=== PATIENT | female | born 1935 | race Hispanic/Latino ===

== ENCOUNTER 2018-08-13 18:09 | Emergency (ER) | payer MEDICARE ==
[~2018-08-13] VITALS: Ht 149.9 cm; Wt 68.0 kg
--- OUTSIDE RECORDS SUMMARY | 2018-08-13 18:23 | XMS REPORT | Continuity of Care Document ---
Author Author [facility] Organization Interface Address Unknown Phone Unavailable Problems Problem Status Onset Date Classification Date Reported Comments Source SWOLLEN FEET Active 06/22/2018 [facility] ACUTE PANCREATITIS, TYPE 2 DIABETES CHENCHO Active 06/22/2018 [facility] GI BLEED, PNEUMONIA Active 08/10/2017 [facility] WEAKNESS Active 08/10/2017 [facility] SYMPTOMATIC ANEMIA Active 07/30/2017 [facility] ABNORMAL LABS Active 07/30/2017 [facility] SEVERE AORTIC VALVA STENOSIS Active 05/13/2017 [facility] ACUTE CHF, ANEMIA, UTI Active 05/08/2017 [facility] CHEST PAIN Active 05/08/2017 [facility] FALL Active 01/04/2017 [facility] Discharge Diagnosis: Anemia, unspecified 12/11/2015 12/14/2015 [facility] DIZZINESS Active 12/11/2015 [facility] Discharge Diagnosis: Chest wall contusion 05/01/2015 05/04/2015 [facility] Discharge Diagnosis: Diabetes 05/01/2015 05/04/2015 [facility] Discharge Diagnosis: Acute back pain 05/01/2015 05/04/2015 [facility] Discharge Diagnosis: Neck pain 05/01/2015 05/04/2015 [facility] F/U Active 04/19/2015 [facility] AORTIC STENOSIS; DIZZINESS Active 02/16/2015 [facility] Anemia Resolved 01/02/2015 Problem 12/14/2015 [facility] SYMPOMATIC ANEMIA, INTERMITTENT TRIGEMIN Active 12/29/2014 [facility] ABNORMAL LAB Active 12/29/2014 [facility] CELLULITIS Active 06/29/2014 [facility] CELLULITUS Active 06/29/2014 [facility] LEG PAIN Active 05/02/2014 [facility] 786.2 Active 04/27/2014 [facility] MRSA<sup>1, 2</sup> Active 04/04/2014 Problem 05/13/2015 Problem added by Discern Expert. [facility] CELLULITIS TO LEGS Active 04/01/2014 [facility] RASH Active 04/01/2014 [facility] ALLERGIES/RASH ON LEGS Active 03/04/2014 [facility] Discharge Diagnosis: Foot contusion 01/18/2014 01/21/2014 [facility] Discharge Diagnosis: Urinary tract infection 01/18/2014 01/21/[address] [facility] [address] SENT Active 01/18/2014 [facility] HYPOXIA, UTI, PRINCE Active 09/22/2013 [facility] DECONDITIONED Active 09/22/2013 [facility] SPLIT [id number] Active 05/15/2013 [facility] ASTHMATIC BRONCHITIS, BRONCHITIS W/EXACE Active 04/28/2013 [facility] ASTHMATIC BRONCHITIS Active 04/28/2013 [facility] ATACKSIA Active 08/08/2012 [facility] LEFT BREAST FILMS Active 08/05/2012 [facility] FALL LESS THAN 8 FEET Active 07/09/2012 [facility] FATIGUE Active 06/14/2007 [facility] History of Parkinson's disease Active 08/19/1999 Problem 02/27/2018 [facility] Diabetes Resolved 08/19/1979 Problem 06/21/2017 [facility] Asthma Active Problem 01/08/2017 [facility] Chronic anemia Active Problem 01/08/2017 [facility] Diabetes mellitus type 2 Active Problem 01/08/2017 [facility] Neuropathy Active Problem 01/08/2017 [facility] Left leg pain Active Problem 01/08/2017 [facility] Parkinson disease Active Problem 01/08/2017 [facility] Psoriasis Active Problem 01/08/2017 [facility] Stomatitis Active Problem 01/08/2017 [facility] Alzheimer's disease Active Problem 02/27/2018 [facility] Anxiety Active Problem 02/27/2018 [facility] Atrial fibrillation Resolved Problem 02/27/2018 [facility] Benign hypertension Active Problem 02/27/2018 [facility] CAD - Coronary artery disease Active Problem 02/27/2018 [facility] Chronic kidney disease , stage III (moderate)(<span ID="[id number]">Confirmed</span>) Active Problem 02/27/2018 [facility] COPD Active Problem 02/27/2018 [facility] Depression Active Problem 02/27/2018 [facility] Diabetes mellitus due to underlying condition with diabetic chronic kidney disease Active Problem 08/12/2017 [facility] Hearing loss Active Problem 08/27/2017 [facility] S/P aortic valve repair Active Problem 02/27/2018 [facility] History of fall Active Problem 01/19/2018 [facility] Hyperlipidemia Active Problem 02/27/2018 [facility] Hypothyroidism Active Problem 02/27/2018 [facility] OA - Osteoarthritis Active Problem 02/27/2018 [facility] Obesity Active Problem 02/27/2018 [facility] Obstructive sleep apnea Active Problem 02/27/2018 [facility] Anemia due to blood loss Active Problem 02/27/2018 [facility] AVM (<span ID="[id number]">Confirmed</span>) Active Problem 02/27/2018 [facility] Diabetes mellitus with kidney disease Active Problem 02/27/2018 [facility] Gastroparesis Active Problem 02/27/2018 [facility] Cold sore Active Problem 08/27/2017 [facility] Unsteady gait Active Problem 02/27/2018 [facility] Weight loss Active Problem 02/10/2018 [facility] Anemia of chronic disease Active Problem 06/21/2017 [facility] Bypass Resolved Problem 06/21/2017 [facility] Fibromyalgia Active Problem 06/21/2017 [facility] History of - multiple allergies Active Problem 06/21/2017 [facility] Hypertension Resolved Problem 06/21/2017 [facility] Kidney stone Active Problem 06/21/2017 [facility] right Knee replacement Active Problem 06/21/2017 [facility] Allergic rhinitis Active Problem 02/10/2018 [facility] Back pain Active Problem 01/19/2018 [facility] Urinary frequency Active Problem 02/27/2018 [facility] Diabetes Resolved Problem 08/12/2017 [facility] Hypertension Resolved Problem 08/12/2017 [facility] Left ankle pain Active Problem 01/19/2018 [facility] Bilateral hearing loss Active Problem 02/27/2018 [facility] Gingivitis Active Problem 02/10/2018 [facility] Left hip pain Active Problem 01/19/2018 [facility] Poor dentition Active Problem 02/10/2018 [facility] Alzheimer's disease Active Problem 08/17/2017 [facility] Angiodysplasia Active Problem 08/17/2017 [facility] Anxiety Active Problem 08/17/2017 [facility] Benign hypertension Active Problem 08/17/2017 [facility] CAD - Coronary artery disease Active Problem 08/17/2017 [facility] Chronic kidney disease , stage III (moderate)(<span ID="[id number]">Confirmed</span>) Active Problem 08/17/2017 [facility] COPD Active Problem 08/17/2017 [facility] Depression Active Problem 08/17/2017 [facility] Diabetes Resolved Problem 08/17/2017 [facility] Diabetes mellitus due to underlying condition with diabetic chronic kidney disease Active Problem 08/17/2017 [facility] Fatigue Active Problem 08/17/2017 [facility] Hyperlipidemia Active Problem 08/17/2017 [facility] Hypertension Resolved Problem 08/17/2017 [facility] Hypothyroidism Active Problem 08/17/2017 [facility] OA - Osteoarthritis Active Problem 08/17/2017 [facility] Obesity Active Problem 08/17/2017 [facility] Obstructive sleep apnea Active Problem 08/17/2017 [facility] Chronic pain Active Problem 02/27/2018 [facility] Pedal edema Active Problem 02/27/2018 [facility] Physical deconditioning Active Problem 02/27/2018 [facility] Recurrent falls Active Problem 02/27/2018 [facility] Hip pain Active Problem 02/27/2018 [facility] Leg pain Active Problem 02/27/2018 [facility] Shoulder pain Active Problem 02/27/2018 [facility] Sciatica Active Problem 02/27/2018 [facility] Hypertension Active Problem 12/14/2015 [facility] MRSA<sup>1</sup> Active Problem 05/22/2014 1Problem added by Discern Expert. [facility] Diabetes mellitus Active Problem 10/08/2013 [facility] Psoriasis Active Problem 10/08/2013 [facility] Critical illness myopathy Active Problem 05/13/2015 [facility] Diabetes mellitus Active Problem 05/13/2015 [facility] Fibromyalgia Active Problem 05/13/2015 [facility] Neck pain Active Problem 05/13/2015 [facility] Psoriasis Active Problem 05/13/2015 [facility] Diabetes mellitus Active Problem 12/14/2015 [facility] Pneumonia Resolved Problem 12/14/2015 [facility] ASTHMA NOS Active [facility] BRONCHITIS NOS Active [facility] HYPOXEMIA Active [facility] CELLULITIS NOS Active [facility] CELLULITIS OF LEG Active [facility] ROUTINE MEDICAL EXAM Active [facility] 719.46 Active [facility] JOINT PAIN-L/LEG Active [facility] ANEMIA NOS Active [facility] HEART FAILURE, UNSPECIFIED Active [facility] ANEMIA, UNSPECIFIED Active [facility] URINARY TRACT INFECTION, SITE NOT SPECIF Active [facility] GASTROINTESTINAL HEMORRHAGE, UNSPECIFIED Active [facility] PNEUMONIA, UNSPECIFIED ORGANISM Active [facility] ACUTE PANCREATITIS WITHOUT NECROSIS OR I Active [facility] TYPE 2 DIABETES MELLITUS WITH HYPERGLYCE Active [facility] Medications Medication Details Route Status Patient Instructions Ordering Provider Order Date Source tizanidine 2 mg oral tablet 2 mg=1 tab, PO, Bedtime, PRN for muscle spasm, # 30 tab, 1 Refill(s), Pharmacy: [facility] [id number] Active 02/18/2018 [facility] lisinopril 20 mg oral tablet 20 mg=1 tab, PO, Daily, # 90 tab, 1 Refill(s), Pharmacy: [id number] Active 01/28/2018 [facility] hydrochlorothiazide 12.5 mg oral tablet 12.5 mg=1 tab, PO, Daily, PRN swelling, # 90 tab, 1 Refill(s), Pharmacy: [id number] Active 01/28/2018 [facility] Diclofenac Sodium 0.01 MG/MG Topical Gel [Voltaren] 4 gm=1 appl, TOP, BID, PRN Apply to affected area, # 100 gm, 2 Refill(s) Active 01/28/2018 [facility] AMIODarone 400 mg oral tablet 400 mg=1 tab, PO, Bedtime, # 90 tab, 1 Refill(s), Pharmacy: [id number] Active 01/28/2018 [facility] chlorhexidine gluconate 1.2 MG/ML Mouthwash 0.018 gm=15 ml, S&SPIT, BID, # 480 ml, 0 Refill(s), Pharmacy: [facility] [id number] Active 01/16/2018 [facility] tramadol hydrochloride 50 MG Oral Tablet 50 mg=1 tab, PO, BID, X 15 day, # 30 tab, 0 Refill(s) Active 12/02/2017 [facility] 3 ML insulin detemir 100 UNT/ML Prefilled Syringe [Levemir] 20 unit, SUB-Q, Bedtime, # 6 pen(s), 1 Refill(s), Pharmacy: [facility] [id number] Active 12/02/2017 [facility] 3 ML insulin detemir 100 UNT/ML Prefilled Syringe [Levemir] 20 unit, SUB-Q, Bedtime, X 90 day, # 6 pen(s), 1 Refill(s), Pharmacy: [id number] Inactive 12/02/2017 [facility] 3 ML Insulin Glargine 100 UNT/ML Pen Injector [Basaglar] 20 unit, SUB-Q, Bedtime, # 6 pen(s), 1 Refill(s), Pharmacy: [facility] Active 12/02/2017 [facility] 3 ML Insulin Glargine 100 UNT/ML Pen Injector [Basaglar] 20 unit, SUB-Q, Bedtime, X 90 day, # 6 pen(s), 1 Refill(s), Pharmacy: [facility] [id number] Inactive 12/02/2017 [facility] levofloxacin 500 mg oral tablet 500 mg=1 tab, PO, Daily, X 7 day, # 7 tab, 0 Refill(s), Pharmacy: [facility] [id number] Active 12/02/2017 [facility] 3 ML Insulin Glargine 100 UNT/ML Pen Injector [Basaglar] 20 unit, SUB-Q, Bedtime, # 6 pen(s), 1 Refill(s), Pharmacy: [id number] No Longer Active 11/22/2017 [facility] ferrous sulfate 325 mg oral enteric coated tablet 325 mg=1 tab, PO, Daily, # 90 tab, 1 Refill(s), Pharmacy: [id number] Active 11/21/2017 [facility] 24 HR venlafaxine 150 MG Extended Release Capsule [Effexor] 150 mg=1 cap, PO, Bedtime, # 90 cap, 1 Refill(s), Pharmacy: [facility] Active 11/21/2017 [facility] loratadine 10 mg oral tablet 10 mg=1 tab, PO, Daily, # 90 tab, 1 Refill(s), Pharmacy: [facility] Active 11/21/2017 [facility] benzonatate 100 mg oral capsule 100 mg=1 cap, PO, TID, do not crush or chew, X 10 day, # 30 cap, 1 Refill(s), Pharmacy: [facility] No Longer Active 11/21/2017 [facility] lisinopril 20 mg oral tablet 20 mg=1 tab, PO, Daily, # 90 tab, 1 Refill(s), Pharmacy: [facility] No Longer Active 11/21/2017 [facility] 3 ML insulin detemir 100 UNT/ML Prefilled Syringe [Levemir] 20 unit, SUB-Q, Daily, # 1 box, 5 Refill(s), Pharmacy: [facility] No Longer Active 11/21/2017 [facility] 3 ML insulin detemir 100 UNT/ML Prefilled Syringe [Levemir] 20 unit, SUB-Q, Daily, X 90 day, # 1 box, 5 Refill(s), Pharmacy: [facility] [id number] No Longer Active 11/20/2017 [facility] Ranitidine 150 MG Oral Tablet See Instructions, TAKE 1 TABLET BY MOUTH TWICE DAILY, # 180 tab, 1 Refill(s), Pharmacy: [facility] [id number] Active 10/25/2017 [facility] Hydroxyzine Hydrochloride 25 MG Oral Tablet 25 mg=1 tab, PO, BID, PRN Anxiety, X 30 day, # 60 tab, 1 Refill(s), Pharmacy: [id number] No Longer Active 10/04/2017 [facility] montelukast 10 mg oral tablet 10 mg=1 tab, PO, Daily, # 90 tab, 1 Refill(s), Pharmacy: [facility] Active 10/04/2017 [facility] ferrous sulfate 325 mg oral enteric coated tablet 325 mg=1 tab, PO, Daily, # 90 tab, 1 Refill(s), Pharmacy: [facility] No Longer Active 10/04/2017 [facility] atorvastatin 40 mg oral tablet 40 mg=1 tab, PO, Bedtime, # 90 tab, 1 Refill(s), Pharmacy: [facility] Active 10/04/2017 [facility] donepezil 10 mg oral tablet 10 mg=1 tab, PO, Bedtime, # 90 tab, 1 Refill(s), Pharmacy: [facility] Active 10/04/2017 [facility] 3 ML Insulin, Aspart, Human 100 UNT/ML Pen Injector [NovoLog] 7 unit, SUB-Q, Before Breakfast, # 1 box, 5 Refill(s), Pharmacy: [facility] Active 08/23/2017 [facility] 3 ML Insulin Glargine 100 UNT/ML Prefilled Syringe [Lantus] 20 unit, SUB-Q, Before Breakfast, # 1 box, 5 Refill(s), Pharmacy: [facility] Active 08/23/2017 [facility] valACYclovir 1 g oral tablet 2 gm=2 tab, PO, Q12H, 2 g every 12 hours for 1 day, X 1 day, # 4 tab, 0 Refill(s), Pharmacy: [facility] No Longer Active 08/22/2017 [facility] Hydralazine 5 mg, 0.25 mL, Route: IV, Drug form: INJ, ONCE, Dosing Weight 64.864, kg, Start date: 08/14/17 12:34:00 [employer], Stop date: 08/14/17 12:34:00 CSTNotes: (Same as: Apresoline) Push over 5 minutes Inactive 08/14/2017 [facility] aspirin 81 mg tablet, enteric coated 81 mg, 1 tab, Route: PO, Drug form: ECTAB, Daily, Dosing Weight 64.864, kg, Start date: 08/14/17 9:00:00 [employer], Duration: 30 day, Stop date: 09/12/17 9:00:00 CSTNotes: Do not crush or chew. (Same As: Ecotrin) Inactive 08/14/2017 [facility] metoprolol extended release 25 mg, 1 tab, Route: PO, Drug form: ERTAB, Daily, Start date: 08/14/17 4:12:00 [employer], Duration: 30 day, Stop date: 09/12/17 9:00:00 CSTNotes: (Same as: Toprol XL) Do Not Crush Inactive 08/14/2017 [facility] Dextromethorphan Hydrobromide 2 MG/ML / Guaifenesin 20 MG/ML Oral Solution 10 mL, Route: PO, Drug Form: SYRP, Dosing Weight 64.864, kg, Q4H, Start date: 08/13/17 20:00:00 [employer], Duration: 3 day, Stop date: 08/16/17 16:00:00 CSTNotes: (dextromethorphan-guaifenesin 10-100mg/5ml 10 ml oral SOLN ud) (Same as: Robitussin DM) No Longer Active 08/14/2017 [facility] Metoclopramide 5 MG Oral Tablet [Reglan] 5 mg, 1 tab, Route: PO, Drug form: TAB, TID-Before Meals, Dosing Weight 64.864, kg, Start date: 08/12/17 11:30:00 [employer], Duration: 30 day, Stop date: 09/11/17 7:30:00 CSTNotes: (Same as: Reglan) Take 30 min before meals No Longer Active 08/12/2017 [facility] Miralax 17 gm, 1 pkt, Route: PO, Drug form: PWDR, Daily, Dosing Weight 64.864, kg, Start date: 08/12/17 10:39:00 [employer], Duration: 30 day, Stop date: 09/11/17 9:00:00 CSTNotes: Dissolve in 8 oz of water or juice. (Same as: Miralax) No Longer Active 08/12/2017 [facility] Sodium Chloride 0.9% IV 1,000 mL 1,000 mL, Rate: 25 ml/hr, Infuse over: 40 hr, Route: IV, Dosing Weight 64.864 kg, Total Volume: 1,000, Start date: 08/12/17 10:12:00 [employer], Duration: 30 day, Stop date: 09/11/17 10:11:00 [employer], 1.68, m2 No Longer Active 08/12/2017 [facility] cefTRIAXone + sterile water 10 mL 1 gm, Route: IVP, [id number], Dosing Weight 63.636, kg, Priority: Routine, Start date: 08/11/17 18:00:00 [employer], Duration: 5 day, Stop date: 08/15/17 18:00:00 [employer], ABX Indication: PneumoniaNotes: (Same As: Rocephin). Use with 100 mL NS and infuse over 30 min MEDICATION WASTE Product Size: 1000 mg Product Wasted: ___ mg No Longer Active 08/12/2017 [facility] Alprazolam 0.25 MG Oral Tablet [Xanax] 0.25 mg, 1 tab, Route: PO, Drug form: TAB, TID, Dosing Weight 64.864, kg, PRN Anxiety, Start date: 08/11/17 12:09:00 [employer], Duration: 30 day, Stop date: 09/10/17 12:08:00 CSTNotes: With food or milk (Same as: Xanax) No Longer Active 08/11/2017 [facility] Zofran 4 mg, 2 mL, Route: IVP, Drug form: INJ, Q4H, Dosing Weight 64.864, kg, PRN Nausea, Start date: 08/11/17 12:09:00 [employer], Duration: 30 day, Stop date: 09/10/17 12:08:00 CSTNotes: (Same as: Zofran) MEDICATION WASTE Product Size: 4 mg Product Wasted: ___ mg No Longer Active 08/11/2017 [facility] 24 HR venlafaxine 150 MG Extended Release Capsule [Effexor] 150 mg=1 cap, PO, Bedtime, 0 Refill(s) Active 08/11/2017 [facility] levothyroxine 150 mcg (0.15 mg) oral tablet 150 microgram=1 tab, PO, Daily, # 30 tab, 0 Refill(s) Active 08/11/2017 [facility] pantoprazole 40 MG Enteric Coated Tablet [Protonix] 40 mg=1 tab, PO, Daily, # 30 tab, 0 Refill(s) Active 08/11/2017 [facility] atorvastatin 40 mg oral tablet 40 mg=1 tab, PO, Bedtime, # 30 tab, 0 Refill(s) Active 08/11/2017 [facility] clopidogrel 75 MG Oral Tablet [Plavix] 75 mg=1 tab, PO, Daily, # 30 tab, 0 Refill(s) No Longer Active 08/11/2017 [facility] aspirin 81 mg tablet, enteric coated 81 mg=1 tab, PO, Daily, # 90 tab, 3 Refill(s) Active 08/11/2017 [facility] lisinopril 20 mg oral tablet 20 mg=1 tab, PO, Daily, # 30 tab, 0 Refill(s) Active 08/11/2017 [facility] tizanidine 2 mg oral tablet 4 mg=2 tab, PO, BID, PRN Spasm, 0 Refill(s) Active 08/11/2017 [facility] ferrous sulfate 325 mg oral enteric coated tablet 325 mg=1 tab, PO, Daily, # 30 tab, 0 Refill(s) Active 08/11/2017 [facility] donepezil 10 mg oral tablet 10 mg=1 tab, PO, Bedtime, 0 Refill(s) Active 08/11/2017 [facility] AMIODarone 400 mg oral tablet 400 mg=1 tab, PO, Bedtime, 0 Refill(s) Active 08/11/2017 [facility] Doxycycline 100 mg, Route: IVPB, [id number], Dosing Weight 63.636, kg, Start date: 08/10/17 21:00:00 [employer], Duration: 30 day, Stop date: 09/09/17 9:00:00 CSTNotes: (Same as: Vibramycin) No Longer Active 08/11/2017 [facility] Sodium Chloride 0.9% IV 1,000 mL 1,000 mL, Rate: 50 ml/hr, Infuse over: 20 hr, Route: IV, Dosing Weight 63.636 kg, Total Volume: 1,000, Start date: 08/10/17 20:40:00 [employer], Duration: 30 day, Stop date: 09/09/17 20:39:00 [employer], 1.65, m2 No Longer Active 08/11/2017 [facility] Saline Flush 0.9% 10 ml, Route: IVP, Drug Form: INJ, Dosing Weight 63.636, kg, PRN, PRN Line Flush, Start date: 08/10/17 20:40:00 [employer], Duration: 30 day, Stop date: 09/09/17 20:39:00 CSTNotes: (Same as: BD Posiflush) No Longer Active 08/11/2017 [facility] Albuterol 0.83 MG/ML Inhalant Solution 2.49 mg, 3 mL, Route: NEB, Drug form: SOLN, PRN, Dosing Weight 63.636, kg, PRN Respiratory Protocol, Start date: 08/10/17 20:40:00 [employer], Duration: 30 day, Stop date: 09/09/17 20:39:00 CSTNotes: SEE RT DOCUMENTATION (Same as: Proventil) No Longer Active 08/11/2017 [facility] Ceftriaxone 1 gm, Route: IVP, [id number], Dosing Weight 63.636, kg, Priority: NOW, Start date: 08/10/17 20:40:00 [employer], Duration: 5 day, Stop date: 08/14/17 20:40:00 [employer] [employer], ABX Indication: PneumoniaNotes: (Same As: Roceph in). Use with 100 mL NS and infuse over 30 min MEDICATION WASTE Product Size: 1000 mg Product Wasted: ___ mg Inactive 08/11/2017 [facility] Acetaminophen 650 mg, 2 tab, Route: PO, Drug form: TAB, Q4H, Dosing Weight 63.636, kg, PRN Pain Score 1-3, For fever > 100.4. Not to exceed 4 grams in 24 hours, Start date: 08/10/17 20:40:00 ASTRONAUT [employer], Duration: 30 day, Stop date: 09/09/17 20:39:00 CSTNotes: Do not exceed 4 gm/day. (Same as: Tylenol) No Longer Active 08/11/2017 [facility] Dextromethorphan Hydrobromide 2 MG/ML / Guaifenesin 20 MG/ML Oral Solution 10 mL, Route: PO, Drug Form: SYRP, Dosing Weight 63.636, kg, Q4H, PRN Cough, Start date: 08/10/17 20:40:00 A[employer]ONAUT [employer], Duration: 30 day, Stop date: 09/09/17 20:39:00 CSTNotes: (dextromethorphan-guaifenesin 10-100mg/5ml 10 ml oral SOLN ud) (Same as: Robitussin DM) No Longer Active 08/11/2017 [facility] Rocephin + sterile water 10 mL 1 gm, Route: IVP, ONCE, Dosing Weight 63.636, kg, Priority: Routine, Start date: 08/10/17 18:00:00 ASTRONAUT [employer], Stop date: 08/10/17 18:00:00 ASTRONAUT [employer], ABX Indication: PneumoniaNotes: (Same As: Rocephin). Use with 100 mL NS and infuse over 30 min MEDICATION WASTE Product Size: 1000 mg Product Wasted: ___ mg Inactive 08/11/2017 [facility] cefTRIAXone + sterile water 10 mL 1 gm, Route: IVP, [id number], Dosing Weight 63.636, kg, Priority: NOW, Start date: 08/10/17 18:00:00 [employer]AUT [employer], Duration: 5 day, Stop date: 08/14/17 18:00:00 ASTRONAUT [employer], ABX Indication: PneumoniaNotes: (Same As: Rocephin). Use with 100 mL NS and infuse over 30 min MEDICATION WASTE Product Size: 1000 mg Product Wasted: ___ mg Inactive 08/11/2017 [facility] methylPREDNISolone 125 mg, 2 mL, Route: IV, Drug form: INJ, ONCE, Start date: 08/10/17 17:42:00 A[employer]ONAUT [employer], Stop date: 08/10/17 17:42:00 CSTNotes: (Same as:Solu-MEDROL, A-Methapred) Inactive 08/10/2017 [facility] methylPREDNISolone SODium SUCCinate 125 mg, Route: IVP, ONCE, Dosing Weight 63.636, kg, Priority: STAT, Start date: 08/10/17 16:43:00 A[employer]AUT [employer], Stop date: 08/10/17 16:43:00 ASTRONAUT [employer] Inactive 08/10/2017 [facility] Rocephin 1 gm, Route: IVPB, ONCE, Dosing Weight 63.636, kg, Priority: STAT, Start date: 08/10/17 16:33:00 ASTRONAUT [employer], Stop date: 08/10/17 16:33:00 ASTRONAUT [employer], ABX Indication: PneumoniaNotes: (Same As: Rocephin). Use with 100 mL NS and infuse over 30 min MEDICATION WASTE Product Size: 1000 mg Product Wasted: ___ mg Inactive 08/10/2017 [facility] Albuterol 0.83 MG/ML Inhalant Solution 2.49 mg, 3 mL, Route: NEB, Drug form: SOLN, ONCE, Dosing Weight 63.636, kg, Priority: STAT, Start date: 08/10/17 15:15:00 A[employer]ONAUT [employer], Stop date: 08/10/17 15:15:00 CSTNotes: SEE RT DOCUMENTATION (Same as: Proventil) Inactive 08/10/2017 [facility] Sodium Chloride 0.9% (titrate) 250 mL 250 mL, Rate: To prime line and flush remaining blood products., Dosing Weight 63.636, kg, Route: IV, Total Volume: 250, Start Date: 08/10/17 14:32:00 A[employer]AUT [employer], Duration: 30 day, Stop date: 09/09/17 14:31:00 ASTRONAUT [employer]IST, Replace Every: 24 hr Inactive 08/10/2017 [facility] Saline Flush 0.9% 10 mL, Route: IVP, Drug Form: INJ, Dosing Weight 72.926, kg, PRN, PRN Line Flush, Start date: 08/10/17 13:37:00 A[employer]ONAUT [employer], Duration: 30 day, Stop date: 09/09/17 13:36:00 CSTNotes: (Same as: BD Posiflush) No Longer Active 08/10/2017 [facility] ferrous sulfate 325 mg oral enteric coated tablet 325 mg=1 tab, PO, BID, # 60 tab, 0 Refill(s), Pharmacy: [facility] Active 08/01/2017 [facility] clopidogrel 75 mg, 1 tab, Route: PO, Drug form: TAB, Daily, Dosing Weight 72.926, kg, Start date: 08/01/17 9:00:00 A[employer]ONAUT [employer], Duration: 30 day, Stop date: 08/30/17 9:00:00 CSTNotes: (Same As: Plavix) Inactive 08/01/2017 [facility] Venofer 200 mg, 10 mL, Route: IVPB, Daily, Dosing Weight 72.926, kg, Start date: 08/01/17 9:00:00 ASTRONAUT [employer], Duration: 5 doses or times, Stop date: 08/05/17 9:00:00 CSTNotes: Each 5ml contains 100mg elemental iron. Mix with NS Non-Formulary (Same as:Venofer) Administer IV only. MEDICATION WASTE Product Size: 100 mg Product Wasted: ___ mg Inactive 08/01/2017 [facility] pantoprazole 40 mg, 1 tab, Route: PO, Drug form: ECTAB, Daily, Dosing Weight 72.926, kg, Start date: 08/01/17 9:00:00 A[employer]ONAUT [employer], Duration: 30 day, Stop date: 08/30/17 9:00:00 CSTNotes: Tablet should not be chewed or cr ushed. (Same as: Protonix) Inactive 08/01/2017 [facility] 24 HR Metoprolol Tartrate 25 MG Extended Release Tablet [Toprol] 50 mg, 1 tab, Route: PO, Drug form: ERTAB, Daily, Start date: 08/01/17 9:00:00 A[employer]ONAUT [employer], Duration: 30 day, Stop date: 08/30/17 9:00:00 CSTNotes: (Same as: Toprol XL) May split tab, but do not crush. Inactive 08/01/2017 [facility] Lisinopril 20 mg, 1 tab, Route: PO, Drug form: TAB, Daily, Dosing Weight 72.926, kg, Start date: 08/01/17 9:00:00 ASTRONAUT [employer], Duration: 30 day, Stop date: 08/30/17 9:00:00 CSTNotes: (Same as: Prinivil, Zestril) Inactive 08/01/2017 [facility] Thyroxine 150 microgram, 1 tab, Route: PO, Drug form: TAB, Daily, Dosing Weight 72.926, kg, Start date: 08/01/17 6:30:00 ASTRONAUT [employer], Duration: 30 day, Stop date: 08/30/17 6:30:00 CSTNotes: Take 1 hour before or 2 hours after meal; Enteral feeds may interefere with the absorption of this medication. (Same as: Levothroid) Inactive 08/01/2017 [facility] atorvastatin 40 mg, 1 tab, Route: PO, Drug form: TAB, Bedtime, Dosing Weight 72.926, kg, Start date: 07/31/17 21:00:00 ASTRONAUT [employer], Duration: 30 day, Stop date: 08/29/17 21:00:00 CSTNotes: (Same as: Lipitor) No Longer Active 08/01/2017 [facility] Amiodarone 200 mg, 1 tab, Route: PO, Drug form: TAB, Bedtime, Dosing Weight 72.926, kg, Start date: 07/31/17 21:00:00 A[employer]ONAUT [employer], Duration: 30 day, Stop date: 08/29/17 21:00:00 CSTNotes: (Same as: Cordarone) No Longer Active 08/01/2017 [facility] Effexor XR 150 mg, 1 cap, Route: PO, Drug form: ERCAP, Bedtime, Dosing Weight 72.926, kg, Start date: 07/31/17 21:00:00 A[employer]ONAUT [employer], Duration: 30 day, Stop date: 08/29/17 21:00:00 CSTNotes: Do not open, crush, or chew. (Same As: Effexor XR) No Longer Active 08/01/2017 [facility] 3 ML Insulin Glargine 100 UNT/ML Prefilled Syringe [Lantus] 20 unit, 0.2 mL, Route: SUB-Q, Drug form: SOLN, Bedtime, Dosing Weight 72.926, kg, Start date: 07/31/17 21:00:00 ASTRONAUT [employer], Duration: 30 day, Stop date: 08/29/17 21:00:00 CSTNotes: (Same as: Lantus) Do not hold insulin without contacting prescriber WASTE: F/P - Black; E - Genomed Trash Bin "single patient use only" No Longer Active 08/01/2017 [facility] donepezil 10 mg, 2 tab, Route: PO, Drug form: TAB, Bedtime, Dosing Weight 72.926, kg, Start date: 07/31/17 21:00:00 A[employer]ONAUT [employer], Duration: 30 day, Stop date: 08/29/17 21:00:00 CSTNotes: (Same as: Aricept) No Longer Active 08/01/2017 [facility] aspirin 81 mg tablet, enteric coated 81 mg, 1 tab, Route: PO, Drug form: ECTAB, Daily, Dosing Weight 72.926, kg, Start date: 07/31/17 17:30:00 ASTRONAUT [employer], Duration: 30 day, Stop date: 08/30/17 9:00:00 CSTNotes: Do not crush or chew. (Same As: Ecotrin) No Longer Active 07/31/2017 [facility] Alprazolam 0.5 MG Oral Tablet 0.5 mg, 1 tab, Route: PO, Drug form: TAB, BID, Dosing Weight 72.926, kg, PRN as needed for anxiety, Start date: 07/31/17 16:58:00 A[employer]ONAUT [employer], Duration: 30 day, Stop date: 08/30/17 16:57:00 CSTNotes: With food or milk (Same as: Xanax) No Longer Active 07/31/2017 [facility] Insulin Lispro 10 unit, 0.1 mL, Route: SUB-Q, Drug form: SOLN, TID-Before Meals, Dosing Weight 72.926, kg, PRN Blood Glucose Results, Start date: 07/31/17 13:20:00 ASTRONAUT [employer], Duration: 30 day, Stop date: 08/30/17 13:19:0 0 CSTNotes: Roll in palms of hands gently; Do not shake `vigorously. (Same as: Humalog ) "Single Patient Use Only " WASTE: F/P - Black; E - Genomed Trash Bin Stable for 28 days at room temperature. Expires in days from Date No Longer Active 07/31/2017 [facility] Dextrose 50% Syringe 12.5 gm, 25 mL, Route: IVP, Drug Form: INJ, Dosing Weight 72.926, kg, PRN, PRN Blood Glucose Results, Start date: 07/31/17 13:20:00 A[employer]ONAUT [employer], Duration: 30 day, Stop date: 08/30/17 13:19:00 ASTRONAUT [employer] No Longer Active 07/31/2017 [facility] Glucagon 1 mg, Route: IM, Drug form: PDR/INJ, PRN, Dosing Weight 72.926, kg, PRN Blood Glucose Results, Start date: 07/31/17 13:20:00 A[employer]ONAUT [employer], Duration: 30 day, Stop date: 08/30/17 13:19:00 ASTRONAUT [employer] No Longer Active 07/31/2017 [facility] magnesium citrate 58.2 MG/ML Oral Solution 300 ml, Route: PO, Drug Form: LIQ, Dosing Weight 72.926, kg, ONCE, Start date: 07/31/17 9:50:00 ASTRONAUT [employer], Stop date: 07/31/17 9:50:00 CSTNotes: (Same as: Citrate of Magnesia) Concentration: 1.745 gm / 30 mL Inactive 07/31/2017 [facility] tizanidine 2 mg, 0.5 tab, Route: PO, Drug form: TAB, BID, Dosing Weight 72.926, kg, PRN as needed for muscle spasm, Start date: 07/31/17 4:30:00 A[employer]ONAUT [employer], Duration: 30 day, Stop date: 08/30/17 4:29:00 CSTNotes: (Same As: Zanaflex) No Longer Active 07/31/2017 [facility] Alprazolam 0.5 MG Oral Tablet 0.5 mg=1 tab, PO, BID, PRN anxiety, stress, # 20 tab, 0 Refill(s) Active 07/31/2017 [facility] Ranitidine 50 mg, PO, BID, 0 Refill(s) Active 07/31/2017 [facility] Acetaminophen 325 mg, 1 tab, Route: PO, Drug form: TAB, Q4H, Dosing Weight 68.182, kg, PRN Pain Score 4-6, Start date: 07/31/17 0:09:00 A[employer]ONAUT [employer], Duration: 30 day, Stop date: 08/30/17 0:08:00 CSTNotes: Do not exceed 4 gm/day. (Same as: Tylenol) No Longer Active 07/31/2017 [facility] Ondansetron 4 mg, 2 mL, Route: IVP, Drug form: INJ, Q6H, Dosing Weight 68.182, kg, PRN Nausea & Vomiting, Start date: 07/31/17 0:09:00 A[employer]ONAUT [employer], Duration: 30 day, Stop date: 08/30/17 0:08:00 CSTNotes: (Same as: Bettina) MEDICATION WASTE Product Size: 4 mg Product Wasted: ___ mg No Longer Active 07/31/2017 [facility] OneTouch Verio Gold Test Strips 1 ea, MISC, TID-Before Meals, Use for blood glucose monitoring., # 300 strip, Insulin dependent, Does not use insulin pump, Last DM eval date 06/16/17, 3 Refill(s) [facility] metoprolol tartrate 25 mg oral tablet 25 mg=1 tab, PO, BID, # 180 tab, 0 Refill(s) Active 07/30/[facility] Hydrochlorothiazide 12.5 MG / Lisinopril 20 MG Oral Tablet 1 tab, PO, Daily, # 30 tab, 0 Refill(s) Active 07/30/2017 [facility] Isosorbide PO, 0 Refill(s) Active 07/30/[facility] tizanidine 2 mg oral tablet 2 mg=1 tab, PO, BID, PRN for muscle spasm, # 60 tab, 2 Refill(s), Pharmacy: [facility] [id number] Active 07/30/2017 [facility] pantoprazole 40 mg oral enteric coated tablet 40 mg=1 tab, PO, Daily, # 30 tab, 0 Refill(s) Active 06/18/2017 [facility] lisinopril 20 mg oral tablet 20 mg=1 tab, PO, Daily, # 30 tab, 4 Refill(s), Lisinopril 20 mg Active 06/18/2017 [facility] clopidogrel 75 mg oral tablet 75 mg=1 tab, PO, Daily, # 30 tab, 0 Refill(s) Active 06/18/2017 [facility] atorvastatin 40 mg oral tablet 40 mg=1 tab, PO, Bedtime, # 30 tab, 0 Refill(s) Active 06/18/2017 [facility] aspirin 81 mg tablet, enteric coated 81 mg=1 tab, PO, Daily, # 30 tab, 0 Refill(s) Active 06/18/2017 [facility] AMIODarone 200 mg oral tablet 200 mg=1 tab, PO, Bedtime, # 30 tab, 0 Refill(s) Active 06/18/2017 [facility] metoprolol 25 mg oral tablet, extended release 25 mg=1 tab, PO, Daily, # 30 tab, 0 Refill(s) Active 06/18/2017 [facility] metoprolol extended release 25 mg, 1 tab, Route: PO, Drug form: ERTAB, Daily, Start date: 06/16/17 10:00:00 CDT, Duration: 30 day, Stop date: 07/16/17 9:00:00 CSTNotes: (Same as: Toprol XL) Do Not Crush No Longer Active 06/16/2017 [facility] insulin lispro 4 unit, Route: SUB-Q, TID-Before Meals, Dosing Weight 68.409, kg, PRN Blood Glucose Results, Start date: 06/16/17 7:38:00 CDT, Duration: 30 day, Stop date: 07/16/17 7:37:00 A[employer]ONAUT [employer] Inactive 06/16/2017 [facility] Dextrose 50% Syringe 50 mL, Route: IVP, Dosing Weight 68.409, kg, PRN, PRN Blood Glucose Results, Start date: 06/16/17 7:38:00 CDT, Duration: 30 day, Stop date: 07/16/17 6:37:00 A[employer]ONAUT [employer] Inactive 06/16/2017 [facility] glucagon 1 mg, Route: IM, PRN, Dosing Weight 68.409, kg, PRN Blood Glucose Results, Start date: 06/16/17 7:38:00 CDT, Duration: 30 day, Stop date: 07/16/17 6:37:00 ASTRONAUT [employer] Inactive 06/16/2017 [facility] Effexor XR 150 mg, 1 cap, Route: PO, Drug form: ERCAP, Bedtime, Dosing Weight 68.409, kg, Start date: 06/15/17 21:00:00 CDT, Duration: 30 day, Stop date: 07/14/17 21:00:00 CSTNotes: Do not open, crush, or chew. (Same As: Effexor XR) No Longer Active 06/16/2017 [facility] Lantus Solostar Pen 100 units/mL subcutaneous solution 20 unit, 0.2 mL, Route: SUB-Q, Drug form: SOLN, Bedtime, Dosing Weight 68.409, kg, Start date: 06/15/17 21:00:00 CDT, Duration: 30 day, Stop date: 07/14/17 21:00:00 CSTNotes: Same as: Lantus) Do not hold insulin without contacting prescriber WASTE: F/P - Black; E - Municipal Trash Bin Inactive 06/16/2017 [facility] donepezil 10 mg, 2 tab, Route: PO, Drug form: TAB, Bedtime, Dosing Weight 68.409, kg, Start date: 06/15/17 21:00:00 CDT, Duration: 30 day, Stop date: 07/14/17 21:00:00 CSTNotes: (Same as: Aricept) No Longer Active 06/16/2017 [facility] atorvastatin 40 mg, 1 tab, Route: PO, Drug form: TAB, Bedtime, Dosing Weight 68.409, kg, Start date: 06/15/17 21:00:00 CDT, Duration: 30 day, Stop date: 07/14/17 21:00:00 CSTNotes: (Same as: Lipitor) No Longer Active 06/16/2017 [facility] AMIODarone 200 mg, 1 tab, Route: PO, Drug form: TAB, Bedtime, Dosing Weight 68.409, kg, Start date: 06/15/17 21:00:00 CDT, Duration: 30 day, Stop date: 07/14/17 21:00:00 CSTNotes: (Same as: Cordarone) No Longer Active 06/16/2017 [facility] insulin glargine 20 unit, 0.2 mL, Route: SUB-Q, Drug form: SOLN, Bedtime, Dosing Weight 68.409, kg, Start date: 06/15/17 21:00:00 CDT, Duration: 30 day, Stop date: 07/14/17 21:00:00 CSTNotes: Same as: Lantus) Do not hold insulin without contacting prescriber WASTE: F/P - Black; E - Municipal Trash Bin No Longer Active 06/16/2017 [facility] pneumococcal 13-valent vaccine 0.5 mL, Route: IM, Daily, Start date: 06/15/17 9:00:00 CDT, Duration: 1 doses or times, Stop date: 06/15/17 9:00:00 CDT Inactive 06/15/2017 [facility] docusate 100 mg, 1 cap, Route: PO, Drug form: CAP, BID, Dosing Weight 68.409, kg, Start date: 06/15/17 9:00:00 CDT, Duration: 30 day, Stop date: 07/14/17 17:00:00 CSTNotes: (Same as: Colace) (Do Not Crush) No Longer Active 06/15/2017 [facility] pneumococcal 23-valent vaccine 0.5 mL, Route: IM, Drug Form: INJ, Daily, Start date: 06/15/17 9:00:00 CDT, Duration: 1 doses or times, Stop date: 06/15/17 9:00:00 CDTNotes: (Same as: Pneumovax 23) Refrigerate Inactive 06/15/2017 [facility] ranitidine 150 mg oral tablet 150 mg, 1 tab, Route: PO, Drug form: TAB, BID, Dosing Weight 68.409, kg, Start date: 06/15/17 9:00:00 CDT, Duration: 30 day, Stop date: 07/14/17 17:00:00 CSTNotes: (Same as:Zantac) Non-Formulary Item Take before or with meals No Longer Active 06/15/2017 [facility] pantoprazole 40 mg, 1 tab, Route: PO, Drug form: ECTAB, Daily, Dosing Weight 68.409, kg, Start date: 06/15/17 9:00:00 CDT, Duration: 30 day, Stop date: 07/14/17 9:00:00 CSTNotes: Tablet should not be chewed or cr ushed. (Same as: Protonix) No Longer Active 06/15/2017 [facility] lisinopril 20 mg, 1 tab, Route: PO, Drug form: TAB, Daily, Dosing Weight 68.409, kg, Start date: 06/15/17 9:00:00 CDT, Duration: 30 day, Stop date: 07/14/17 9:00:00 CSTNotes: (Same as: Prinivil, Zestril) No Longer Active 06/15/2017 [facility] levothyroxine 150 microgram, 1 tab, Route: PO, Drug form: TAB, Daily, Dosing Weight 68.409, kg, Start date: 06/15/17 9:00:00 CDT, Duration: 30 day, Stop date: 07/14/17 9:00:00 CSTNotes: Take 1 hour before or 2 hours after meal; Enteral feeds may interefere with the absorption of this medication. (Same as: Levothroid) No Longer Active 06/15/2017 [facility] gabapentin 300 mg oral capsule 300 mg, 1 cap, Route: PO, Drug form: CAP, BID, Dosing Weight 68.409, kg, Start date: 06/15/17 9:00:00 CDT, Duration: 30 day, Stop date: 07/14/17 17:00:00 CSTNotes: (Same as: Neurontin) No Longer Active 06/15/2017 [facility] clopidogrel 75 mg, 1 tab, Route: PO, Drug form: TAB, Daily, Dosing Weight 68.409, kg, Start date: 06/15/17 9:00:00 CDT, Duration: 30 day, Stop date: 07/14/17 9:00:00 CSTNotes: (Same As: Plavix) No Longer Active 06/15/2017 [facility] aspirin 81 mg tablet, enteric coated 81 mg, 1 tab, Route: PO, Drug form: ECTAB, Daily, Dosing Weight 68.409, kg, Start date: 06/15/17 9:00:00 CDT, Duration: 30 day, Stop date: 07/14/17 9:00:00 CSTNotes: Do not crush or chew. (Same As: Ecotrin) No Longer Active 06/15/2017 [facility] heparin 5,000 unit, 1 mL, Route: SUB-Q, Drug form: INJ, Q8H, Dosing Weight 68.409, kg, Start date: 06/15/17 8:00:00 CDT, Duration: 30 day, Stop date: 07/15/17 0:00:00 CSTNotes: porcine heparin No Longer Active 06/15/2017 [facility] Tylenol 325 mg, 1 tab, Route: PO, Drug form: TAB, Q6H, Dosing Weight 68.409, kg, PRN Pain Score 1-3, Start date: 06/15/17 7:50:00 CDT, Duration: 30 day, Stop date: 07/15/17 7:49:00 CSTNotes: Do not exceed 4 gm/day. (Same as: Tylenol) No Longer Active 06/15/2017 [facility] NovoLOG FlexPen 7 unit, Route: SUB-Q, Before Breakfast, Dosing Weight 68.409, kg, Start date: 06/15/17 7:30:00 CDT, Duration: 30 day, Stop date: 07/14/17 7:30:00 [employer] Inactive 06/15/2017 [facility] insulin lispro 3 unit, 0.03 mL, Route: SUB-Q, Drug form: SOLN, TID-Before Meals, Dosing Weight 68.409, kg, Start date: 06/15/17 7:30:00 CDT, Duration: 30 day, Stop date: 07/14/17 16:30:00 CSTNotes: (Same as: Humalog ) Roll in palms of hands gently; Do not shake `vigorously. "Single Patient Use Only " (Restricted to patients requiring a dose > 60 units) WASTE: F/P - Black; E - Municipal Trash Bin Stable for 28 days at room temperature. Expires in days from Date No Longer Active 06/15/2017 [facility] insulin lispro 4 unit, 0.04 mL, Route: SUB-Q, Drug form: SOLN, TID-Before Meals, Dosing Weight 68.409, kg, PRN Blood Glucose Results, Start date: 06/15/17 2:13:00 CDT, Duration: 30 day, Stop date: 07/15/17 2:12:00 CSTNotes: (Same as: Humalog ) Roll in palms of hands gently; Do not shake `vigorously. "Single Patient Use Only " (Restricted to patients requiring a dose > 60 units) WASTE: F/P - Black; E - Municipal Trash Bin Stable for 28 days at room temperature. Expires in days from Date No Longer Active 06/15/2017 [facility] glucagon 1 mg, Route: IM, Drug form: PDR/INJ, PRN, Dosing Weight 68.409, kg, PRN Blood Glucose Results, Start date: 06/15/17 2:13:00 CDT, Duration: 30 day, Stop date: 07/15/17 1:12:00 [employer] No Longer Active 06/15/2017 [facility] Dextrose 50% Syringe 12.5 gm, 25 mL, Route: IVP, Drug Form: INJ, Dosing Weight 68.409, kg, PRN, PRN Blood Glucose Results, Start date: 06/15/17 2:13:00 CDT, Duration: 30 day, Stop date: 07/15/17 1:12:00 [employer] No Longer Active 06/15/2017 [facility] sodium chloride 0.9% INJ 250 mL 250 mL, Rate: equip maint eng for use with blood product administration, Dosing Weight 68.409, kg, Route: IV, Total Volume: 250, Start Date: 06/15/17 0:30:00 CDT, Duration: 30 day, Stop date: 07/15/17 0:29:00 [employer], Replace Every: 24 hr No Longer Active 06/15/2017 [facility] Saline Flush 0.9% 10 ml, Route: IVP, Drug Form: INJ, Dosing Weight 68.409, kg, PRN, PRN Line Flush, Start date: 06/15/17 0:06:00 CDT, Duration: 30 day, Stop date: 07/14/17 23:05:00 CSTNotes: (Same as: BD Posiflush) No Longer Active 06/15/2017 [facility] Saline Flush 0.9% 10 mL, Route: IVP, Drug Form: INJ, Dosing Weight 72.727, kg, PRN, PRN Line Flush, Start date: 06/14/17 11:23:00 CDT, Duration: 30 day, Stop date: 07/14/17 10:22:00 CSTNotes: (Same as: BD Posiflush) Inactive 06/14/2017 [facility] aspirin 81 mg tablet, enteric coated 81 mg=1 tab, PO, Daily, # 90 tab, 0 Refill(s) Active 05/25/2017 [facility] 24 HR venlafaxine 150 MG Extended Release Capsule [Effexor] 150 mg=1 cap, PO, Bedtime, # 90 cap, 1 Refill(s) Active 05/25/2017 [facility] lisinopril 20 mg oral tablet 20 mg=1 tab, PO, Daily, # 90 tab, 4 Refill(s), Lisinopril 20 mg Active 05/25/2017 [facility] levothyroxine 150 mcg (0.15 mg) oral tablet 150 microgram=1 tab, PO, Daily, # 90 tab, 1 Refill(s) Active 05/25/2017 [facility] gabapentin 300 MG Oral Capsule 300 mg=1 cap, PO, BID, # 90 cap, 0 Refill(s) Active 05/25/2017 [facility] donepezil 10 mg oral tablet 10 mg=1 tab, PO, Bedtime, # 90 tab, 0 Refill(s) Active 05/25/2017 [facility] atorvastatin 40 mg oral tablet 40 mg=1 tab, PO, Bedtime, # 90 tab, 0 Refill(s) Active 05/25/2017 [facility] AMIODarone 200 mg oral tablet 200 mg=1 tab, PO, Bedtime, # 90 tab, 0 Refill(s) Active 05/25/2017 [facility] pantoprazole 40 mg oral enteric coated tablet 40 mg=1 tab, PO, Daily, # 90 tab, 0 Refill(s) Active 05/25/2017 [facility] clopidogrel 75 mg oral tablet 75 mg=1 tab, PO, Daily, # 90 tab, 0 Refill(s) Active 05/25/2017 [facility] Lisinopril 20 mg, 1 tab, Route: PO, Drug form: TAB, Daily, Dosing Weight 68.182, kg, Start date: 05/25/17 9:00:00 CDT, Duration: 30 day, Stop date: 06/23/17 9:00:00 CSTNotes: (Same as: Afsaneh Valle) Inactive 05/25/2017 [facility] Lantus Solostar Pen 100 units/mL subcutaneous solution 20 unit, 0.2 mL, Route: SUB-Q, Drug form: SOLN, Bedtime, Dosing Weight 68.182, kg, Start date: 05/24/17 21:52:00 CDT, Duration: 30 day, Stop date: 06/23/17 21:00:00 CSTNotes: Same as: Lantus) Do not hold insulin without contacting prescriber WASTE: F/P - Black; E - Genomed Trash Bin No Longer Active 05/25/2017 [facility] Lisinopril 10 mg, 1 tab, Route: PO, Drug form: TAB, ONCE, Dosing Weight 68.182, kg, Start date: 05/24/17 10:05:00 CDT, Stop date: 05/24/17 10:05:00 CDTNotes: (Same as: Roque Vallestril) Inactive 05/24/2017 [facility] POLYETHYLENE GLYCOL 3350 17 gm, 1 pkt, Route: PO, Drug form: PWDR, Daily, Dosing Weight 68.182, kg, Start date: 05/24/17 9:00:00 CDT, Duration: 30 day, Stop date: 06/22/17 9:00:00 CDTNotes: Dissolve in 8 oz of water or juice. (Same as: Miralax) No Longer Active 05/24/2017 [facility] pantoprazole 40 mg, 1 tab, Route: PO, Drug form: ECTAB, Daily, Dosing Weight 68.182, kg, Start date: 05/24/17 9:00:00 CDT, Duration: 30 day, Stop date: 06/22/17 9:00:00 CDTNotes: Tablet should not be chewed or cr ushed. (Same as: Protonix) No Longer Active 05/24/2017 [facility] clopidogrel 75 mg, 1 tab, Route: PO, Drug form: TAB, Daily, Dosing Weight 68.182, kg, Start date: 05/24/17 9:00:00 CDT, Duration: 30 day, Stop date: 06/22/17 9:00:00 CDTNotes: (Same As: Plavix) No Longer Active 05/24/2017 [facility] aspirin 81 mg tablet, enteric coated 81 mg, 1 tab, Route: PO, Drug form: ECTAB, Daily, Dosing Weight 68.182, kg, Start date: 05/24/17 9:00:00 CDT, Duration: 30 day, Stop date: 06/22/17 9:00:00 CDTNotes: Do not crush or chew. (Same As: Ecotrin) No Longer Active 05/24/2017 [facility] Amlodipine 10 mg, 1 tab, Route: PO, Drug form: TAB, Daily, Dosing Weight 68.182, kg, Start date: 05/24/17 9:00:00 CDT, Duration: 30 day, Stop date: 06/22/17 9:00:00 CDTNotes: (Same as: Norvasc) Inactive 05/24/2017 [facility] Lisinopril 10 mg, 1 tab, Route: PO, Drug form: TAB, Daily, Dosing Weight 68.182, kg, Start date: 05/24/17 8:09:00 CDT, Duration: 30 day, Stop date: 06/22/17 9:00:00 CDTNotes: (Same as: Prinivil, Zestril) Inactive 05/24/2017 [facility] Calcium Carbonate 500 MG Chewable Tablet 1,000 mg, 2 tab, Route: PO, Drug form: CHEWTAB, PRN, Dosing Weight 68.182, kg, PRN Abnormal Lab Result, FOR ICU USE ONLY, Start date: 05/24/17 5:40:00 CDT, Duration: 30 day, Stop date: 06/23/17 4:39:00 CSTNotes: (Same As: Yusras) Calcium Carbonate 500 nn=770 mg elemental calcium Dose= mg calcium carbonate ( mg elemental calcium) No Longer Active 05/24/2017 [facility] sodium phosphate 30 mmol, 10 mL, Route: IVPB, PRN, Dosing Weight 68.182, kg, PRN Abnormal Lab Result, Start date: 05/24/17 5:40:00 CDT, Duration: 30 day, Stop date: 06/23/17 4:39:00 ASTRONAUT [employer]IST, FOR ICU USE ONLY No Longer Active 05/24/2017 [facility] Potassium Chloride 20 mEq, 1 tab, Route: PO, Drug form: ERTAB, PRN, Dosing Weight 68.182, kg, PRN Abnormal Lab Result, Start date: 05/24/17 5:40:00 CDT, Duration: 30 day, Stop date: 06/23/17 4:39:00 [employer] SPECIALIST, FOR ICU USE ONLYNotes: (Same as: K-Dur 20) "Do Not Crush" With food and full glass of water No Longer Active 05/24/2017 [facility] Magnesium Sulfate 2 gm, 50 mL, Route: IVPB, Drug form: INJ, PRN, Dosing Weight 68.182, kg, PRN Abnormal Lab Result, Start date: 05/24/17 5:40:00 CDT, Duration: 30 day, Stop date: 06/23/17 4:39:00 [employer] SPECIALIST, FOR ICU USE ONLYNotes: WASTE: F/P - Sink; E - Municipal Trash Bin No Longer Active 05/24/2017 [facility] Magnesium Oxide 800 mg, 2 tab, Route: PO, Drug form: TAB, PRN, Dosing Weight 68.182, kg, PRN Abnormal Lab Result, FOR ICU USE ONLY, Start date: 05/24/17 5:40:00 CDT, Duration: 30 day, Stop date: 06/23/17 4:39:00 [employer] Notes: (Same as: Mag-Ox 400) Magnesium oxide [id number] elemental magnesium Dose=____mg magnesium oxide (___mg elemental magnesium) No Longer Active 05/24/2017 [facility] Calcium Gluconate 1 gm, 10 mL, Route: IVPB, PRN, Dosing Weight 68.182, kg, PRN Abnormal Lab Result, Start date: 05/24/17 5:40:00 CDT, Duration: 30 day, Stop date: 06/23/17 4:39:00 [employer] SPECIALIST, FOR ICU USE ONLYNotes: WASTE: F/P - Sink; E - Municipal Trash Bin No Longer Active 05/24/2017 [facility] potassium phosphate-sodium phosphate 250 mg-280 mg-160 mg oral powder for reconstitution 2 pkt, Route: PO, Drug Form: PDR/REC, Dosing Weight 68.182, kg, PRN, PRN Abnormal Lab Result, FOR ICU USE ONLY, Start date: 05/24/17 5:40:00 CDT, Duration: 30 day, Stop date: 06/23/17 4:39:00 CSTNotes: (Same as: Phos-NaK) Each 1.5 gm pkt has 250mg phosphorous. Mix w/2.5oz water and stir. No Longer Active 05/24/2017 [facility] potassium phosphate 15 mmol, 5 mL, Route: IVPB, PRN, Dosing Weight 68.182, kg, PRN Abnormal Lab Result, Start date: 05/24/17 5:40:00 CDT, Duration: 30 day, Stop date: 06/23/17 4:39:00 [employer]IST, FOR ICU USE ONLYNotes: (Same as: K Phosphate.) 1 mMol phoshate has 1.47 mEq potassium Infuse over 4 hours No Longer Active 05/24/2017 [facility] Cefazolin 1 gm, Route: IVPB, Drug form: PDR/INJ, Q8H, Dosing Weight 68.182, kg, Start date: 05/24/17 0:00:00 CDT, Duration: 1 doses or times, Stop date: 05/24/17 0:00:00 CDT, ABX Indication: Surgical ProphylaxisN otes: (Same As: Ancef Kefzol) MEDICATION WASTE Product Size: 1000 mg Product Wasted:0 mg Inactive 05/24/2017 [facility] 3 ML Insulin Glargine 100 UNT/ML Prefilled Syringe [Lantus] 10 unit, 0.1 mL, Route: SUB-Q, Drug form: SOLN, ONCE, Dosing Weight 68.182, kg, Start date: 05/23/17 23:03:00 CDT, Stop date: 05/23/17 23:03:00 CDTNotes: Same as: Lantus) Do not hold insulin without contacting prescriber WASTE: F/P - Black; E - Municipal Trash Bin No Longer Active 05/24/2017 [facility] Docusate 100 mg, 1 cap, Route: PO, Drug form: CAP, Q12H, Dosing Weight 68.182, kg, Start date: 05/23/17 21:00:00 CDT, Duration: 30 day, Stop date: 06/22/17 9:00:00 CDTNotes: (Same as: Colace) (Do Not Crush) No Longer Active 05/24/2017 [facility] Ondansetron 4 mg, 2 mL, Route: IVP, Drug form: INJ, Q8H, Dosing Weight 68.182, kg, PRN Nausea & Vomiting, Start date: 05/23/17 19:02:00 CDT, Duration: 30 day, Stop date: 06/22/17 19:01:00 CDTNotes: (Same as: Zofran) MEDICATION WASTE Product Size: 4 mg Product Wasted: ___ mg No Longer Active 05/24/2017 [facility] Acetaminophen 1,000 mg, 100 mL, Route: IVPB, Drug form: INJ, ONCE, Dosing Weight 68.182, kg, PRN Pain Score 1-3, Start date: 05/23/17 19:02:00 CDTNotes: Infuse over 15 minutes Do not exceed 4gm/day of acetaminoph en MEDICATION WASTE Product Size: 1000 mg Product Wasted: ___ mg No Longer Active 05/24/2017 [facility] Nicardipine 40 mg, 200 mL, Rate: Titrate, Start Dose: 5 mg/hr, Titration: 2mg every 15 minutes PRN, Goal(s): maintain MAP 75-85 mmHg, Max Dose: 15mg/hr, Route: IV, Dosing Weight 68.182 kg, Total Volume: 200, Start date: 05/23/17 19:02:00 CDT, Duration: 30 day, St...Notes: Same as: Cardene Concentration: (0.2 mg /1 ml ) No Longer Active 05/24/2017 [facility] sodium chloride 0.9% 1000 ml INJ 750 mL 750 mL, Rate: 75 ml/hr, Infuse over: 10 hr, Route: IV, Dosing Weight 68.182 kg, Total Volume: 750, Start date: 05/23/17 19:02:00 CDT, Duration: 10 hr, Stop date: 05/24/17 5:01:00 CDT No Longer Active 05/24/2017 [facility] protamine (ANES) Route: IV, Drug form: INJ, ONCE, Stop date: 05/23/17 18:36:00 CDT Inactive 05/23/2017 [facility] Flumazenil 0.2 mg, 2 mL, Route: IVP, Drug form: INJ, PRN, Dosing Weight 68.182, kg, PRN Benzodiazepine Reversal, Initial dose, Start date: 05/23/17 18:11:00 CDT, Duration: 30 day, Stop date: 06/22/17 18:10:00 C DTNotes: (Same as: Romazicon) No Longer Active 05/23/2017 [facility] Fentanyl 50 microgram, 1 mL, Route: IVP, Drug form: INJ, Q5Min, Dosing Weight 68.182, kg, PRN Pain Score 7-10, Priority: Routine, Start date: 05/23/17 18:11:00 CDT, Duration: 2 doses or times, Stop date: Limited # of timesNotes: (Same as: Sublimaze) Preservative free. No Longer Active 05/23/2017 [facility] Naloxone 0.4 mg, 1 mL, Route: IVP, Drug form: INJ, Q2MIN, Dosing Weight 68.182, kg, PRN Narcotic Reversal, Start date: 05/23/17 18:11:00 CDT, Duration: 8 doses or times, Stop date: Limited # of timesNotes: Same as Narcan No Longer Active 05/23/2017 [facility] acetaminophen (ANES) Route: IV, Drug form: INJ, ONCE, Stop date: 05/23/17 18:01:00 CDT Inactive 05/23/2017 [facility] heparin (ANES) Route: IV, Drug form: INJ, ONCE, Stop date: 05/23/17 18:01:00 CDT Inactive 05/23/2017 [facility] propofol (ANES) Route: IV, Drug form: INJ, ONCE, Stop date: 05/23/17 17:41:00 CDT Inactive 05/23/2017 [facility] fentaNYL (ANES) Route: IV, Drug form: INJ, ONCE, Stop date: 05/23/17 17:41:00 CDT Inactive 05/23/2017 [facility] lidocaine (ANES) Route: IV, Drug form: INJ, ONCE, Stop date: 05/23/17 17:41:00 CDT Inactive 05/23/2017 [facility] ceFAZolin (ANES) Route: IV, Drug form: INJ, ONCE, Stop date: 05/23/17 17:36:00 CDT Inactive 05/23/2017 [facility] dexmedetomidine (ANES) (ANES) Route: IV, Drug form: INJ, Start date: 05/23/17 16:35:00 CDT, Stop date: 05/23/17 17:35:00 CDT Inactive 05/23/2017 [facility] sodium chloride 0.9% 250 ml INJ (ANES) Route: IV, Total Volume: 250, Start date: 05/23/17 16:29:00 CDT, Stop date: 05/23/17 17:29:00 CDT Inactive 05/23/2017 [facility] Amlodipine 5 mg, 1 tab, Route: PO, Drug form: TAB, ONCE, Dosing Weight 68.182, kg, Start date: 05/23/17 10:23:00 CDT, Stop date: 05/23/17 10:23:00 CDTNotes: (Same as: Norvasc) Inactive 05/23/2017 [facility] Prednisone 50 mg, 1 tab, Route: PO, Drug form: TAB, TID, Dosing Weight 68.182, kg, Start date: 05/23/17 3:00:00 CDT, Duration: 3 doses or times, Stop date: 05/23/17 13:00:00 CDTNotes: Take with food. Inactive 05/23/2017 [facility] sodium chloride 0.9% 1000 ml INJ 1,000 mL 1,000 mL, Rate: 75 ml/hr, Infuse over: 13.3 hr, Route: IV, Dosing Weight 68.182 kg, Total Volume: 1,000, start at midnight when pt is NPO, Start date: 05/23/17 0:01:00 CDT, Duration: 14 hr, Stop date: 05/23/17 14:00:00 CDT Inactive 05/23/2017 [facility] 24 HR Metoprolol Tartrate 50 MG Extended Release Tablet [Toprol] 50 mg, 1 tab, Route: PO, Drug form: ERTAB, Q12H, Start date: 05/22/17 21:00:00 CDT, Duration: 30 day, Stop date: 06/21/17 9:00:00 CDTNotes: (Same as: Toprol XL) May split tab, but do not crush. No Longer Active 05/23/2017 [facility] Benadryl 12.5 mg, 5 mL, Route: PO, Drug form: LIQ, Bedtime, Dosing Weight 68.182, kg, PRN Insomnia, Start date: 05/22/17 14:10:00 CDT, Stop date: 06/21/17 14:09:00 CDTNotes: (Same as: Benadryl) No Longer Active 05/22/2017 [facility] Benadryl 25 mg, 1 cap, Route: PO, Drug form: CAP, Bedtime, Dosing Weight 68.182, kg, PRN Insomnia, Start date: 05/22/17 10:01:00 CDT, Duration: 30 day, Stop date: 06/21/17 10:00:00 CDTNotes: (Same as: Benadryl) Inactive 05/22/2017 [facility] Amlodipine 5 mg, 1 tab, Route: PO, Drug form: TAB, Daily, Dosing Weight 68.182, kg, Start date: 05/22/17 9:52:00 CDT, Duration: 30 day, Stop date: 06/21/17 9:00:00 CDTNotes: (Same as: Norvasc) No Longer Active 05/22/2017 [facility] Furosemide 20 MG Oral Tablet [Lasix] 40 mg, Route: PO, Drug form: TAB, Daily, Dosing Weight 68.182, kg, Start date: 05/22/17 9:00:00 CDT, Duration: 30 day, Stop date: 06/20/17 9:00:00 CDT No Longer Active 05/22/2017 [facility] Lisinopril 40 mg, 2 tab, Route: PO, Drug form: TAB, Daily, Dosing Weight 68.182, kg, Start date: 05/22/17 9:00:00 CDT, Duration: 30 day, Stop date: 06/20/17 9:00:00 CDTNotes: (Same as: Prinivil, Zestril) No Longer Active 05/22/2017 [facility] Lasix 20 mg, 2 mL, Route: IVP, Drug form: INJ, ONCE, Dosing Weight 68.182, kg, Start date: 05/22/17 8:38:00 CDT, Stop date: 05/22/17 8:38:00 CDTNotes: (Same as: Lasix) Inactive 05/22/2017 [facility] 24 HR Metoprolol Tartrate 25 MG Extended Release Tablet [Toprol] 25 mg, 1 tab, Route: PO, Drug form: ERTAB, ONCE, Start date: 05/22/17 8:37:00 CDT, Stop date: 05/22/17 8:37:00 CDTNotes: (Same as: Toprol XL) Do Not Crush Inactive 05/22/2017 [facility] Lisinopril 10 mg, 1 tab, Route: PO, Drug form: TAB, ONCE, Dosing Weight 68.182, kg, Start date: 05/22/17 8:35:00 CDT, Stop date: 05/22/17 8:35:00 CDTNotes: (Same as: Prinivil, Zestril) Inactive 05/22/2017 [facility] Exparel 20 mL, Route: InFILtration(local), Drug Form: INJ, Dosing Weight 68.182, kg, 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 Bunionectomy: 7 mL into the tissues surrounding the osteotomy and 1 mL into the subcutaneous tissue of the surgical site (total dose=8 mL [106 mg]) Hemorrhoidectomy: 30 mL (20 mL vial diluted with 10 mL NS) divided and administered as 6 injections of 5 mL each (total dose=30 mL [266 mg]) No Longer Active 05/22/2017 [facility] Famotidine 20 mg, 1 tab, Route: PO, Drug form: TAB, ONCE, Dosing Weight 68.182, kg, Start date: 05/22/17 7:59:00 CDT, Stop date: 05/22/17 7:59:00 CDTNotes: (Same as: Pepcid) No Longer Active 05/22/2017 [facility] Diphenhydramine 50 mg, 1 cap, Route: PO, Drug form: CAP, ONCE, Dosing Weight 68.182, kg, Start date: 05/22/17 7:59:00 CDT, Stop date: 05/22/17 7:59:00 CDTNotes: (Same as: Benadryl) No Longer Active 05/22/2017 [facility] sodium chloride 0.9% INJ 250 mL 250 mL, Rate: equip maint eng for use with blood product administration, Dosing Weight 68.182, kg, Route: IV, Total Volume: 250, Start Date: 05/22/17 7:59:00 CDT, Duration: 30 day, Stop date: 06/21/17 7:58:00 CDT, Replace Every: 24 hr No Longer Active 05/22/2017 [facility] Furosemide 20 mg, 2 mL, Route: IVP, Drug form: INJ, ONCE, Dosing Weight 68.182, kg, Priority: Routine, Start date: 05/21/17 10:14:00 CDT, Stop date: 05/21/17 10:14:00 CDTNotes: (Same as: Lasix) Inactive 05/21/2017 [facility] sodium chloride 0.9% INJ 250 mL 250 mL, Rate: 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 Do not use hot water. Take immediately after dissolving in water. Inactive 05/21/2017 [facility] lisinopril 30 mg, 3 tab, Route: PO, Drug form: TAB, Daily, Dosing Weight 68.182, kg, Start date: 05/21/17 9:00:00 CDT, Duration: 30 day, Stop date: 06/19/17 9:00:00 CDTNotes: (Same as: Prinivil, Zestril) No Longer Active 05/21/2017 [facility] Lisinopril 10 mg, 1 tab, Route: PO, Drug form: TAB, ONCE, Dosing Weight 68.182, kg, Start date: 05/20/17 14:59:00 CDT, Stop date: 05/20/17 14:59:00 CDTNotes: (Same as: Prinivil, Zestril) Inactive 05/20/2017 [facility] Melatonin 3 MG Extended Release Tablet 9 mg, 3 tab, Route: PO, Drug Form: TAB, Dosing Weight 68.182, kg, Bedtime, Start date: 05/19/17 21:00:00 CDT, Stop date: 06/17/17 21:00:00 CDTNotes: (Same as: Melatonin) No Longer Active 05/20/2017 [facility] Vancomycin 750 mg, Route: IVPB, Drug form: PDR/INJ, [id number], Dosing Weight 68.182, kg, Start date: 05/19/17 13:00:00 CDT, Stop date: 05/26/17 1:00:00 CDT, ABX Indication: BacteremiaNotes: TIME CRITICAL MEDICATION (Same As: Vancocin) Infusion rate 2000 mg: infuse over 2.5 hours No Longer Active 05/19/2017 [facility] Toprol-XL 25 mg oral tablet, extended release 25 mg, 1 tab, Route: PO, Drug form: ERTAB, Daily, Start date: 05/19/17 11:00:00 CDT, Duration: 30 day, Stop date: 06/18/17 9:00:00 CDTNotes: (Same as: Toprol XL) Do Not Crush No Longer Active 05/19/2017 [facility] lisinopril 20 mg, 1 tab, Route: PO, Drug form: TAB, Daily, Dosing Weight 68.182, kg, Start date: 05/19/17 10:30:00 CDT, Duration: 30 day, Stop date: 06/18/17 9:00:00 CDTNotes: (Same as: Prinivil, Zestril) No Longer Active 05/19/2017 [facility] Tylenol 325 mg, 1 tab, Route: PO, Drug form: TAB, Q6H, Dosing Weight 68.182, kg, PRN For Temp > 100.4 F, Start date: 05/19/17 0:13:00 CDT, Duration: 30 day, Stop date: 06/18/17 0:12:00 CDTNotes: Do not exceed 4 gm/day. (Same as: Tylenol) No Longer Active 05/19/2017 [facility] Vancomycin 1.25 gm, Route: IV, ONCE, Dosing Weight 68.182, kg, Start date: 05/19/17 0:09:00 CDT, Stop date: 05/19/17 0:09:00 CDT, ABX Indication: Urinary Tract InfectionNotes: TIME CRITICAL MEDICATION (Same As: Va ncocin) Infusion rate 2000 mg: infuse over 2.5 hours MEDICATION WASTE Product Size: 1000 mg Product Wasted: ___ mg Inactive 05/19/2017 [facility] Venofer 200 mg, Route: IVPB, Drug form: INJ, Daily, Dosing Weight 68.182, kg, Start date: 05/17/17 9:00:00 CDT, Duration: 5 doses or times, Stop date: 05/21/17 9:00:00 CDT No Longer Active 05/17/2017 [facility] Melatonin 3 MG Extended Release Tablet 3 mg, 1 tab, Route: PO, Dosing Weight 68.182, kg, Bedtime, Start date: 05/16/17 21:00:00 CDT, Duration: 30 day, Stop date: 06/14/17 21:00:00 CDT Inactive 05/17/2017 [facility] Insulin Lispro 5 unit, 0.05 mL, Route: SUB-Q, Drug form: SOLN, TID-Before Meals, Dosing Weight 68.182, kg, PRN Blood Glucose Results, Start date: 05/16/17 19:56:00 CDT, Duration: 30 day, Stop date: 06/15/17 19:55:0 0 CDTNotes: (Same as: Humalog ) Roll in palms of hands gently; Do not shake `vigorously. "Single Patient Use Only " (Restricted to patients requiring a dose > 60 units) WASTE: F/P - Black; E - Municipal Trash Bin Stable for 28 days at room temperature. Expires in days from Date No Longer Active 05/17/2017 [facility] Famotidine 20 MG Oral Tablet [Pepcid] 20 mg, 1 tab, Route: PO, Drug form: TAB, ONCE, Dosing Weight 68.182, kg, Start date: 05/16/17 17:50:00 CDT, Stop date: 05/16/17 17:50:00 CDTNotes: (Same as: Pepcid) Inactive 05/16/2017 [facility] Ferrlecit + sodium chloride 0.9% INJ 100 mL 125 mg, 10 mL, Route: IV, Drug form: INJ, Daily, Start date: 05/16/17 10:00:00 CDT, Stop date: 05/23/17 10:00:00 CDTNotes: (sodium ferric gluconate complex (elemental iron) 62.5 mg/5 ml INJ) "Limited stability. Use immediately after admixture" (Same as: Ferrlecit) MEDICATION WASTE Product Size: 62.5 mg Product Wasted: ___ mg No Longer Active 05/16/2017 [facility] Alprazolam 0.25 MG Oral Tablet [Xanax] 0.25 mg, 1 tab, Route: PO, Drug form: TAB, Q6H, Dosing Weight 68.182, kg, PRN Anxiety, Start date: 05/16/17 10:00:00 CDT, Duration: 30 day, Stop date: 06/15/17 9:59:00 CDTNotes: With food or milk (Same as: Xanax) No Longer Active 05/16/2017 [facility] Melatonin 3 MG Extended Release Tablet 3 mg, 1 tab, Route: PO, Drug Form: TAB, Dosing Weight 68.182, kg, ONCE, Start date: 05/16/17 2:41:00 CDT, Stop date: 05/16/17 2:41:00 CDTNotes: (Same as: Melatonin) Inactive 05/16/2017 [facility] Insulin Lispro 5 unit, 0.05 mL, Route: SUB-Q, Drug form: SOLN, ONCE, Dosing Weight 68.182, kg, Start date: 05/15/17 19:41:00 CDT, Stop date: 05/15/17 19:41:00 CDTNotes: (Same as: Humalog ) Roll in palms of hands ge ntly; Do not shake `vigorously. "Single Patient Use Only " (Restricted to patients requiring a dose > 60 units) WASTE: F/P - Black; E - Municipal Trash Bin Stable for 28 days at room temperature. Expires in days from Date Inactive 05/16/2017 [facility] Humalog 5 unit, 0.05 mL, Route: SUB-Q, Drug form: SOLN, TID-Meals, Start date: 05/15/17 17:00:00 CDT, Duration: 30 day, Stop date: 06/14/17 12:00:00 CDTNotes: (Same as: Humalog ) Roll in palms of hands gently; Do not shake `vigorously. "Single Patient Use Only " (Restricted to patients requiring a dose > 60 units) WASTE: F/P - Black; E - Municipal Trash Bin Stable for 28 days at room temperature. Expires in days from Date No Longer Active 05/15/2017 [facility] Insulin regular 5 unit, 0.05 mL, Route: IV, Drug form: SOLN, ONCE, Dosing Weight 68.182, kg, Start date: 05/15/17 16:45:00 CDT, Stop date: 05/15/17 16:45:00 CDTNotes: (Same as: Humulin R) Roll in palms of hands gently; Do not shake vigorously. "single patient use only" (Restricted to patients requiring a dose > 60 units) WASTE: F/P - Black; E - Municipal Trash Bin Stable for 28 days at room temperature Expires in days from Date Inactive 05/15/2017 [facility] Insulin regular 10 unit, 0.1 mL, Route: SUB-Q, Drug form: SOLN, ONCE, Dosing Weight 68.182, kg, Start date: 05/15/17 16:37:00 CDT, Stop date: 05/15/17 16:37:00 CDTNotes: (Same as: Humulin R) Roll in palms of hands g ently; Do not shake vigorously. "single patient use only" (Restricted to patients requiring a dose > 60 units) WASTE: F/P - Black; E - Municipal Trash Bin Stable for 28 days at room temperature Expires in days from Date Inactive 05/15/2017 [facility] Dextrose 50% Syringe 25 mL, Route: IVP, Dosing Weight 68.182, kg, PRN, PRN Blood Glucose Results, Start date: 05/15/17 16:34:00 CDT, Duration: 30 day, Stop date: 06/14/17 16:33:00 CDT Inactive 05/15/2017 [facility] Sodium Chloride 0.9% IV 99 mL + Insulin regular 100 unit 99 mL, Rate: Start Insulin Drip Per ICU Protocol, Dosing Weight 68.182, kg, Route: IVPB, Total Volume: 99, Start Date: 05/15/17 16:34:00 CDT, Duration: 30 day, Stop date: 06/14/17 16:33:00 CDT, Replace Every: 24 hr Inactive 05/15/2017 [facility] Insulin regular 5 unit, Route: SUB-Q, TID-Before Meals, Dosing Weight 68.182, kg, Start date: 05/15/17 16:30:00 CDT, Duration: 30 day, Stop date: 06/14/17 11:30:00 CDT Inactive 05/15/2017 [facility] Insulin regular 5 unit, 0.05 mL, Route: SUB-Q, Drug form: SOLN, ONCE, Dosing Weight 68.182, kg, Start date: 05/15/17 15:01:00 CDT, Stop date: 05/15/17 15:01:00 CDTNotes: (Same as: Humulin R) Roll in palms of hands g ently; Do not shake vigorously. "single patient use only" (Restricted to patients requiring a dose > 60 units) WASTE: F/P - Black; E - Municipal Trash Bin Stable for 28 days at room temperature Expires in days from Date Inactive 05/15/2017 [facility] Insulin Lispro 10 unit, 0.1 mL, Route: SUB-Q, Drug form: SOLN, TID-Before Meals, Dosing Weight 68.182, kg, PRN Blood Glucose Results, Start date: 05/15/17 14:38:00 CDT, Duration: 30 day, Stop date: 06/14/17 14:37:0 0 CDTNotes: (Same as: Humalog ) Roll in palms of hands gently; Do not shake `vigorously. "Single Patient Use Only " (Restricted to patients requiring a dose > 60 units) WASTE: F/P - Black; E - Municipal Trash Bin Stable for 28 days at room temperature. Expires in days from Date No Longer Active 05/15/2017 [facility] Dextrose 50% Syringe 12.5 gm, 25 mL, Route: IVP, Drug Form: INJ, Dosing Weight 68.182, kg, PRN, PRN Blood Glucose Results, Start date: 05/15/17 14:38:00 CDT, Duration: 30 day, Stop date: 06/14/17 14:37:00 CDT No Longer Active 05/15/2017 [facility] Glucagon 1 mg, Route: IM, Drug form: PDR/INJ, PRN, Dosing Weight 68.182, kg, PRN Blood Glucose Results, Start date: 05/15/17 14:38:00 CDT, Duration: 30 day, Stop date: 06/14/17 14:37:00 CDT No Longer Active 05/15/2017 [facility] [facility] Insulin Lispro 8 unit, 0.08 mL, Route: SUB-Q, Drug form: SOLN, Sliding Scale, Dosing Weight 68.182, kg, PRN Blood Glucose Results, Start date: 05/15/17 12:34:00 CDT, Duration: 30 day, Stop date: 06/14/17 12:33:00 C DTNotes: (Same as: Humalog ) Roll in palms of hands gently; Do not shake `vigorously. "Single Patient Use Only " (Restricted to patients requiring a dose > 60 units) WASTE: F/P - Black; E - Municipal Trash Bin Stable for 28 days at room temperature. Expires in days from Date Inactive 05/15/2017 [facility] Tramadol 50 mg, 1 tab, Route: PO, Drug form: TAB, ONCE, Dosing Weight 68.182, kg, Start date: 05/15/17 12:33:00 CDT, Stop date: 05/15/17 12:33:00 CDTNotes: Not to exceed 400mg/day. (Same As: Ultram) Inactive 05/15/2017 [facility] sodium chloride 0.9% 500 ml INJ 500 mL 500 mL, Rate: 75 ml/hr, Infuse over: 6.7 hr, Route: IV, Dosing Weight 68.182 kg, Total Volume: 500, Start date: 05/15/17 12:28:00 CDT, Duration: 30 day, Stop date: 06/14/17 12:27:00 CDT No Longer Active 05/15/2017 [facility] Folic Acid 1 mg, 1 tab, Route: PO, Drug form: TAB, Daily, Dosing Weight 68.182, kg, Start date: 05/15/17 9:00:00 CDT, Duration: 7 day, Stop date: 05/21/17 9:00:00 CDTNotes: (Same as: Folvite) No Longer Active 05/15/2017 [facility] Vitamin B12 1,000 microgram, 1 tab, Route: PO, Drug form: TAB, Daily, Dosing Weight 68.182, kg, Start date: 05/15/17 9:00:00 CDT, Duration: 7 day, Stop date: 05/21/17 9:00:00 CDTNotes: (Same As: Vitamin B-12) No Longer Active 05/15/2017 [facility] Lisinopril 20 mg, 1 tab, Route: PO, Drug form: TAB, Daily, Dosing Weight 68.182, kg, Start date: 05/15/17 9:00:00 CDT, Duration: 30 day, Stop date: 06/13/17 9:00:00 CDTNotes: (Same as: Prinivil, Zestril) No Longer Active 05/15/2017 [facility] iodixanol 150 mL, Route: IVP, Drug Form: SOLN, Dosing Weight 68.182, kg, ONCALL, STAT, Start date: 05/15/17 8:35:00 CDT, Duration: 1 doses or times, Dose=2.2ml/kg, Max [id number] -- "To be infused by Radiology Staff ONLY"Notes: (Same as: Paulo). WASTE: F/P - Black; E - Municipal Trash Bin Inactive 05/15/2017 [facility] Diphenhydramine 50 mg, 2 cap, Route: PO, Drug form: CAP, ONCE, Dosing Weight 68.182, kg, Start date: 05/15/17 7:00:00 CDT, Stop date: 05/15/17 7:00:00 CDTNotes: (Same as: Benadryl) Inactive 05/15/2017 [facility] Famotidine 20 mg, 1 tab, Route: PO, Drug form: TAB, ONCE, Dosing Weight 68.182, kg, Start date: 05/15/17 7:00:00 CDT, Stop date: 05/15/17 7:00:00 CDTNotes: (Same as: Pepcid) Inactive 05/15/2017 [facility] Melatonin 3 MG Extended Release Tablet 3 mg, 1 tab, Route: PO, Drug Form: TAB, Dosing Weight 68.182, kg, ONCE, Start date: 05/15/17 1:40:00 CDT, Stop date: 05/15/17 1:40:00 CDTNotes: (Same as: Melatonin) Inactive 05/15/2017 [facility] atorvastatin 40 mg, 1 tab, Route: PO, Drug form: TAB, Bedtime, Dosing Weight 68.182, kg, Start date: 05/14/17 21:00:00 CDT, Duration: 30 day, Stop date: 06/12/17 21:00:00 CDTNotes: (Same as: Lipitor) No Longer Active 05/15/2017 [facility] 3 ML Insulin Glargine 100 UNT/ML Prefilled Syringe [Lantus] 20 unit, 0.2 mL, Route: SUB-Q, Drug form: SOLN, Bedtime, Dosing Weight 68.182, kg, Start date: 05/14/17 21:00:00 CDT, Duration: 30 day, Stop date: 06/12/17 21:00:00 CDTNotes: Same as: Lantus) Do not hold insulin without contacting prescriber WASTE: F/P - Black; E - Municipal Trash Bin No Longer Active 05/15/2017 [facility] Amiodarone 200 mg, 1 tab, Route: PO, Drug form: TAB, Bedtime, Dosing Weight 68.182, kg, Start date: 05/14/17 21:00:00 CDT, Duration: 30 day, Stop date: 06/12/17 21:00:00 CDTNotes: (Same as: Cordarone) No Longer Active 05/15/2017 [facility] Imdur 30 mg, 1 tab, Route: PO, Drug form: ERTAB, Bedtime, Dosing Weight 68.182, kg, Start date: 05/14/17 21:00:00 CDT, Duration: 30 day, Stop date: 06/12/17 21:00:00 CDTNotes: (Same as:Imdur) "Do Not Crush" Take on empty stomach/ full glass of water. Do not crush No Longer Active 05/15/2017 [facility] donepezil 10 mg, 2 tab, Route: PO, Drug form: TAB, Bedtime, Dosing Weight 68.182, kg, Start date: 05/14/17 21:00:00 CDT, Duration: 30 day, Stop date: 06/12/17 21:00:00 CDTNotes: (Same as: Aricept) No Longer Active 05/15/2017 [facility] Prednisone 50 mg, 1 tab, Route: PO, Drug form: TAB, TID, Dosing Weight 68.182, kg, Start date: 05/14/17 19:00:00 CDT, Duration: 3 doses or times, Stop date: 05/15/17 7:00:00 CDTNotes: Take with food. No Longer Active 05/15/2017 [facility] Effexor XR 150 mg, 1 cap, Route: PO, Drug form: ERCAP, QPM, Dosing Weight 68.182, kg, Start date: 05/14/17 17:00:00 CDT, Duration: 30 day, Stop date: 06/12/17 17:00:00 CDTNotes: Do not open, crush, or chew. (Same As: Effexor XR) No Longer Active 05/14/2017 [facility] famotidine 20 mg, 1 tab, Route: PO, Drug form: TAB, Daily, Start date: 05/14/17 15:00:00 CDT, Duration: 30 day, Stop date: 06/13/17 9:00:00 CDTNotes: (Same as: Pepcid) No Longer Active 05/14/2017 [facility] Morphine 2 mg, 0.5 mL, Route: IVP, Drug form: SOLN, ONCE, Dosing Weight 68.182, kg, Start date: 05/14/17 11:34:00 CDT, Stop date: 05/14/17 11:34:00 CDTNotes: (Same as:MORPhine Sulfate) Inactive 05/14/2017 [facility] methylPREDNISolone SODium SUCCinate 125 mg, 2 mL, Route: IVP, Drug form: INJ, ONCE, Dosing Weight 68.182, kg, Start date: 05/14/17 11:00:00 CDT, Stop date: 05/14/17 11:00:00 CDTNotes: (Same as:Solu-MEDROL, A- Methapred) Inactive 05/14/2017 [facility] Diphenhydramine 50 mg, 1 mL, Route: IVP, Drug form: INJ, ONCE, Dosing Weight 68.182, kg, Start date: 05/14/17 11:00:00 CDT, Stop date: 05/14/17 11:00:00 CDTNotes: (Same as: Benadryl) Inactive 05/14/2017 [facility] Famotidine 20 mg, 2 mL, Route: IVP, Drug form: INJ, ONCE, Dosing Weight 68.182, kg, Start date: 05/14/17 11:00:00 CDT, Stop date: 05/14/17 11:00:00 CDTNotes: (Same as: Pepcid) Can be dilute in 5-10cc NS IVP: S low IV push over at least 2 minutes. Inactive 05/14/2017 [facility] Tylenol 325 mg, 1 tab, Route: PO, Drug form: TAB, Q6H, Dosing Weight 68.182, kg, PRN Pain Score 1-3, Start date: 05/14/17 10:02:00 CDT, Duration: 30 day, Stop date: 06/13/17 10:01:00 CDTNotes: Do not exceed 4 gm/day. (Same as: Tylenol) No Longer Active 05/14/2017 [facility] 24 HR Metoprolol Tartrate 25 MG Extended Release Tablet [Toprol] 25 mg, 1 tab, Route: PO, Drug form: ERTAB, Daily, Start date: 05/14/17 9:00:00 CDT, Stop date: 06/12/17 9:00:00 CDTNotes: (Same as: Toprol XL) Do Not Crush No Longer Active 05/14/2017 [facility] Thyroxine 150 microgram, 1 tab, Route: PO, Drug form: TAB, Q630AM, Dosing Weight 68.182, kg, Start date: 05/14/17 9:00:00 CDT, Duration: 30 day, Stop date: 06/13/17 6:30:00 CDTNotes: Take 1 hour before or 2 hours after meal; Enteral feeds may interefere with the absorption of this medication. (Same as: Levothroid) No Longer Active 05/14/2017 [facility] gabapentin 300 MG Oral Capsule 300 mg, 1 cap, Route: PO, Drug form: CAP, BID, Dosing Weight 68.182, kg, Start date: 05/14/17 9:00:00 CDT, Duration: 30 day, Stop date: 06/12/17 21:00:00 CDTNotes: (Same as: Neurontin) No Longer Active 05/14/2017 [facility] Saline Flush 0.9% 10 ml, Route: IVP, Drug Form: INJ, Dosing Weight 68.182, kg, Q12H, Start date: 05/14/17 9:00:00 CDT, Duration: 30 day, Stop date: 06/12/17 21:00:00 CDTNotes: (Same as: BD Posiflush) No Longer Active 05/14/2017 [facility] aspirin 81 mg tablet, enteric coated 81 mg, 1 tab, Route: PO, Drug form: ECTAB, Daily, Dosing Weight 68.182, kg, Start date: 05/14/17 9:00:00 CDT, Duration: 30 day, Stop date: 06/12/17 9:00:00 CDTNotes: Do not crush or chew. (Same As: Ecotrin) No Longer Active 05/14/2017 [facility] Furosemide 40 mg, 4 mL, Route: IVP, Drug form: INJ, Daily, Dosing Weight 68.182, kg, Start date: 05/14/17 9:00:00 CDT, Duration: 30 day, Stop date: 06/12/17 9:00:00 CDTNotes: (Same as: Lasix) MEDICATION WASTE Product Size: 40 mg Product Wasted: ___ mg No Longer Active 05/14/2017 [facility] Rocephin 1 gm, Route: IVPB, Drug form: PDR/INJ, [id number], Dosing Weight 68.182, kg, Start date: 05/14/17 9:00:00 CDT, Duration: 2 day, Stop date: 05/15/17 9:00:00 CDT, ABX Indication: Genital Tract InfectionNotes: (Same As: Rocephin). Use with 100 mL NS and infuse over 30 min MEDICATION WASTE Product Size: 1000 mg Product Wasted: ___ mg No Longer Active 05/14/2017 [facility] Ranitidine 150 MG Oral Tablet 150 mg, 1 tab, Route: PO, Drug form: TAB, BID, Dosing Weight 68.182, kg, Start date: 05/14/17 9:00:00 CDT, Duration: 30 day, Stop date: 06/12/17 17:00:00 CDT Inactive 05/14/2017 [facility] montelukast 10 mg, Route: PO, Drug form: TAB, BID, Dosing Weight 68.182, kg, Start date: 05/14/17 9:00:00 CDT, Duration: 30 day, Stop date: 06/12/17 17:00:00 CDT Inactive 05/14/2017 [facility] pneumococcal capsular polysaccharide type 1 vaccine / pneumococcal capsular polysaccharide type 10A vaccine / pneumococcal capsular polysaccharide type 11A vaccine / pneumococcal capsular polysaccharide type 12F vaccine / pneumococcal capsular polysacchar 0.5 mL, Route: IM, Drug Form: INJ, Daily, Start date: 05/14/17 9:00:00 CDT, Duration: 1 doses or times, Stop date: 05/14/17 9:00:00 CDTNotes: (Same as: Pneumovax 23) Refrigerate Inactive 05/14/2017 [facility] Streptococcus pneumoniae serotype 1 capsular antigen diphtheria [id number] protein conjugate vaccine / Streptococcus pneumoniae serotype 14 capsular antigen diphtheria [id number] protein conjugate vaccine / Streptococcus pneumoniae serotype 18C capsular antigen d 0.5 mL, Route: IM, Daily, Start date: 05/14/17 9:00:00 CDT, Duration: 1 doses or times, Stop date: 05/14/17 9:00:00 CDT Inactive 05/14/2017 [facility] influenza virus vaccine, inactivated 0.5 mL, Route: IM, Drug Form: SUSP, Daily, Start date: 05/14/17 9:00:00 CDT, Duration: 1 doses or times, Stop date: 05/14/17 9:00:00 CDTNotes: (Same as: Fluzone Quadrivalent, Fluarix Quadrivalent) For 3 years of age and older (0.5 mL IM) Shake well before use Inactive 05/14/2017 [facility] Dextrose 50% Syringe 25 gm, 50 mL, Route: IVP, Drug Form: INJ, Dosing Weight 68.182, kg, PRN, PRN Blood Glucose Results, Start date: 05/14/17 8:02:00 CDT, Duration: 30 day, Stop date: 06/13/17 8:01:00 CDT No Longer Active 05/14/2017 [facility] Glucagon 1 mg, Route: IM, Drug form: PDR/INJ, PRN, Dosing Weight 68.182, kg, PRN Blood Glucose Results, Start date: 05/14/17 8:02:00 CDT, Duration: 30 day, Stop date: 06/13/17 8:01:00 CDT No Longer Active 05/14/2017 [facility] Insulin Lispro 2 unit, 0.02 mL, Route: SUB-Q, Drug form: SOLN, Sliding Scale, Dosing Weight 68.182, kg, PRN Blood Glucose Results, Start date: 05/14/17 8:02:00 CDT, Duration: 30 day, Stop date: 06/13/17 8:01:00 CDT Notes: (Same as: Humalog ) Roll in palms of hands gently; Do not shake `vigorously. "Single Patient Use Only " (Restricted to patients requiring a dose > 60 units) WASTE: F/P - Black; E - Municipal Trash Bin Stable for 28 days at room temperature. Expires in days from Date No Longer Active 05/14/2017 [facility] Nitroglycerin 0.4 MG Sublingual Tablet 0.4 mg, 1 tab, Route: SL, Drug form: TAB, Q5Min, Dosing Weight 68.182, kg, PRN Chest Pain, Start date: 05/14/17 8:00:00 CDT, Duration: 30 day, Stop date: 06/13/17 7:59:00 CDTNotes: (Same as:Nitroquick, Nitrostat) "Do Not Crush" Sublingual tablet No Longer Active 05/14/2017 [facility] heparin 5,000 unit, 1 mL, Route: SUB-Q, Drug form: INJ, Q8H, Dosing Weight 68.182, kg, Start date: 05/14/17 8:00:00 CDT, Duration: 30 day, Stop date: 06/13/17 0:00:00 CDTNotes: porcine heparin No Longer Active 05/14/2017 [facility] Saline Flush 0.9% 10 ml, Route: IVP, Drug Form: INJ, Dosing Weight 68.182, kg, PRN, PRN Line Flush, Start date: 05/14/17 7:44:00 CDT, Duration: 30 day, Stop date: 06/13/17 7:43:00 CDTNotes: (Same as: BD Posiflush) No Longer Active 05/14/2017 [facility] Saline Flush 0.9% 10 ml, Route: IVP, Drug Form: INJ, Dosing Weight 68.182, kg, PRN, PRN Line Flush, Start date: 05/14/17 5:55:00 CDT, Duration: 30 day, Stop date: 06/13/17 5:54:00 CDT Inactive 05/14/2017 [facility] Famotidine 20 mg, 1 tab, Route: PO, Drug form: TAB, Q12H, Dosing Weight 74.318, kg, Start date: 05/13/17 21:00:00 CDT, Duration: 30 day, Stop date: 06/12/17 9:00:00 CDTNotes: (Same as: Pepcid) No Longer Active 05/14/2017 [facility] Nitroglycerin 0.4 mg, Route: SL, Drug form: TAB, Q5Min, Dosing Weight 74.318, kg, PRN Chest Pain, Start date: 05/13/17 16:34:00 CDT, Duration: 3 doses or times, Stop date: Limited # of times Inactive 05/13/2017 [facility] sodium chloride 0.9% 1000 ml INJ 1,000 mL 1,000 mL, Rate: 75 ml/hr, Infuse over: 13.3 hr, Route: IV, Dosing Weight 74.318 kg, Total Volume: 1,000, Start date: 05/13/17 16:34:00 CDT, Duration: 10 hr, Stop date: 05/14/17 2:33:00 CDT No Longer Active 05/13/2017 [facility] pantoprazole 40 mg, 1 tab, Route: PO, Drug form: ECTAB, Before Breakfast, Dosing Weight 74.318, kg, Start date: 05/13/17 7:30:00 CDT, Duration: 30 day, Stop date: 06/11/17 7:30:00 CDTNotes: Tablet should not be c hewed or crushed. (Same as: Protonix) No Longer Active 05/13/2017 [facility] sodium chloride 0.9% 1000 ml INJ 1,000 mL 1,000 mL, Rate: 75 ml/hr, Infuse over: 13.3 hr, Route: IV, Dosing Weight 74.318 kg, Total Volume: 1,000, Start date: 05/12/17 17:10:00 CDT, Duration: 30 day, Stop date: 06/11/17 17:09:00 CDT No Longer Active 05/12/2017 [facility] Venofer 200 mg, 10 mL, Route: IVPB, Daily, Dosing Weight 74.318, kg, Start date: 05/12/17 9:00:00 CDT, Duration: 5 doses or times, Stop date: 05/16/17 9:00:00 CDTNotes: Each 5ml contains 100mg elemental iron. Mix with NS Non-Formulary (Same as:Venofer) Administer IV only. MEDICATION WASTE Product Size: 100 mg Product Wasted: ___ mg No Longer Active 05/12/2017 [facility] Hydroxyzine 25 mg, 1 cap, Route: PO, Drug form: CAP, Q6H, Dosing Weight 74.318, kg, PRN Itching, Start date: 05/11/17 20:43:00 CDT, Duration: 30 day, Stop date: 06/10/17 20:42:00 CDTNotes: (Same as: Vistaril) No Longer Active 05/12/2017 [facility] Pyridium 200 mg, 2 tab, Route: PO, Drug form: TAB, TID- After Meals, Dosing Weight 74.318, kg, Start date: 05/11/17 17:30:00 CDT, Duration: 2 day, Stop date: 05/13/17 12:30:00 CDTNotes: Give with meals. (Same as: Pyridium) No Longer Active 05/11/2017 [facility] Insulin Lispro 2 unit, 0.02 mL, Route: SUB-Q, Drug form: SOLN, TID-Before Meals, Dosing Weight 72.727, kg, PRN Blood Glucose Results, Start date: 05/10/17 16:28:00 CDT, Duration: 30 day, Stop date: 06/09/17 16:27:0 0 CDTNotes: Roll in palms of hands gently; Do not shake `vigorously. (Same as: Humalog ) "Single Patient Use Only " WASTE: F/P - Black; E - Municipal Trash Bin Stable for 28 days at room temperature. Expires in days from Date No Longer Active 05/10/2017 [facility] Glucagon 1 mg, Route: IM, Drug form: PDR/INJ, PRN, Dosing Weight 72.727, kg, PRN Blood Glucose Results, Start date: 05/10/17 16:28:00 CDT, Duration: 30 day, Stop date: 06/09/17 16:27:00 CDT No Longer Active 05/10/2017 [facility] Dextrose 50% Syringe 25 gm, 50 mL, Route: IVP, Drug Form: INJ, Dosing Weight 72.727, kg, PRN, PRN Blood Glucose Results, Start date: 05/10/17 16:28:00 CDT, Duration: 30 day, Stop date: 06/09/17 16:27:00 CDT No Longer Active 05/10/2017 [facility] sodium chloride 0.9% INJ 250 mL 250 mL, Rate: equip maint eng for use with blood product administration, Dosing Weight 72.727, kg, Route: IV, Total Volume: 250, Start Date: 05/10/17 9:47:00 CDT, Duration: 1 day, Stop date: 05/11/17 9:46:00 CDT, Replace Every: 24 hr No Longer Active 05/10/2017 [facility] 24 HR Metoprolol Tartrate 25 MG Extended Release Tablet [Toprol] 25 mg, 1 tab, Route: PO, Drug form: ERTAB, Daily, Start date: 05/10/17 9:00:00 CDT, Duration: 30 day, Stop date: 06/08/17 9:00:00 CDTNotes: (Same as: Toprol XL) Do Not Crush No Longer Active 05/10/2017 [facility] Thyroxine 150 microgram, 1 tab, Route: PO, Drug form: TAB, Q630AM, Dosing Weight 81.818, kg, Start date: 05/10/17 6:30:00 CDT, Duration: 30 day, Stop date: 06/08/17 6:30:00 CDTNotes: Take 1 hour before or 2 hours after meal; Enteral feeds may interefere with the absorption of this medication. (Same as: Levothroid) No Longer Active 05/10/2017 [facility] Effexor XR 150 mg, 1 cap, Route: PO, Drug form: ERCAP, Bedtime, Dosing Weight 81.818, kg, Start date: 05/09/17 21:00:00 CDT, Duration: 30 day, Stop date: 06/07/17 21:00:00 CDTNotes: Do not open, crush, or chew. (Same As: Effexor XR) No Longer Active 05/10/2017 [facility] montelukast 10 mg, 1 tab, Route: PO, Drug form: TAB, Bedtime, Dosing Weight 81.818, kg, Start date: 05/09/17 21:00:00 CDT, Duration: 30 day, Stop date: 06/07/17 21:00:00 CDTNotes: (Same as:Singulair) No Longer Active 05/10/2017 [facility] Imdur 30 mg, 1 tab, Route: PO, Drug form: ERTAB, Bedtime, Dosing Weight 81.818, kg, Start date: 05/09/17 21:00:00 CDT, Duration: 30 day, Stop date: 06/07/17 21:00:00 CDTNotes: (Same as:Imdur) "Do Not Crush" Take on empty stomach/ full glass of water. Do not crush No Longer Active 05/10/2017 [facility] 3 ML Insulin Glargine 100 UNT/ML Prefilled Syringe [Lantus] 20 unit, 0.2 mL, Route: SUB-Q, Drug form: SOLN, Bedtime, Dosing Weight 81.818, kg, Start date: 05/09/17 21:00:00 CDT, Duration: 30 day, Stop date: 06/07/17 21:00:00 CDTNotes: (Same as: Lantus) Do not hold insulin without contacting prescriber WASTE: F/P - Black; E - Municipal Trash Bin "single patient use only" No Longer Active 05/10/2017 [facility] donepezil 10 mg, 2 tab, Route: PO, Drug form: TAB, Bedtime, Dosing Weight 81.818, kg, Start date: 05/09/17 21:00:00 CDT, Duration: 30 day, Stop date: 06/07/17 21:00:00 CDTNotes: (Same as: Aricept) No Longer Active 05/10/2017 [facility] Lasix 40 mg, 4 mL, Route: IV, Drug form: INJ, Q12H, Dosing Weight 72.727, kg, Start date: 05/09/17 21:00:00 CDT, Duration: 3 doses or times, Stop date: 05/10/17 21:00:00 CDTNotes: (Same as: Lasix) MEDICATION WASTE Product Size: 40 mg Product Wasted: ___ mg No Longer Active 05/10/2017 [facility] atorvastatin 40 mg, 1 tab, Route: PO, Drug form: TAB, Bedtime, Dosing Weight 81.818, kg, Start date: 05/09/17 21:00:00 CDT, Duration: 30 day, Stop date: 06/07/17 21:00:00 CDTNotes: (Same as: Lipitor) No Longer Active 05/10/2017 [facility] Amiodarone 200 mg, 1 tab, Route: PO, Drug form: TAB, Bedtime, Dosing Weight 81.818, kg, Start date: 05/09/17 21:00:00 CDT, Duration: 30 day, Stop date: 06/07/17 21:00:00 CDTNotes: (Same as: Cordarone) No Longer Active 05/10/2017 [facility] Requip 1 mg, 1 tab, Route: PO, Drug form: TAB, BID, Dosing Weight 72.727, kg, PRN Leg Cramps, Priority: NOW, Start date: 09/21/17 17:24:00 CDT, Duration: 30 day, Stop date: 06/08/17 17:23:00 CDTNotes: (Same as: Requip) No Longer Active 05/09/2017 [facility] Acetaminophen 325 MG / Hydrocodone Bitartrate 5 MG Oral Tablet [[place] 5/325] 1 tab, Route: PO, Drug Form: TAB, Dosing Weight 72.727, kg, Q6H, PRN Pain Score 1-3, Start date: 05/09/17 17:24:00 CDT, Duration: 30 day, Stop date: 06/08/17 17:23:00 CDTNotes: (Same as: [place] 325/5) Do not exceed 4gm/day of acetaminophen. No Longer Active 05/09/2017 [facility] Alprazolam 0.5 MG Oral Tablet 0.5 mg, 1 tab, Route: PO, Drug form: TAB, BID, Dosing Weight 81.818, kg, PRN Anxiety, Start date: 05/09/17 16:26:00 CDT, Duration: 30 day, Stop date: 06/08/17 16:25:00 CDTNotes: With food or milk (Same as: Xanax) No Longer Active 05/09/2017 [facility] Ativan 0.5 mg, Route: PO, ONCE, Dosing Weight 84.091, kg, Start date: 05/09/17 15:46:00 CDT, Stop date: 05/09/17 15:46:00 CDT Inactive 05/09/2017 [facility] Acetaminophen 650 mg, PO, Q6H, PRN Pain 1-3/Temp > 100.4 F, 0 Refill(s) On Hold 05/09/2017 [facility] metoprolol 25 mg oral tablet, extended release 25 mg=1 tab, PO, Bedtime, 0 Refill(s) On Hold 05/09/2017 [facility] Diphenhydramine Hydrochloride 25 MG Oral Tablet [Diphenhist] 25 mg=1 tab, PO, BID, 0 Refill(s) On Hold 05/09/2017 [facility] 24 HR Isosorbide Mononitrate 30 MG Extended Release Tablet [Imdur] 30 mg=1 tab, PO, Bedtime, 0 Refill(s) On Hold 05/09/2017 [facility] 3 ML Insulin Glargine 100 UNT/ML Prefilled Syringe [Lantus] 20 unit, SUB-Q, Bedtime, 0 Refill(s) On Hold 05/09/2017 [facility] Hydrochlorothiazide 12.5 mg, PO, Every Other Day, 0 Refill(s) On Hold 05/09/2017 [facility] NovoLOG FlexPen 7 unit, SUB-Q, Before Breakfast, 0 Refill(s) On Hold 05/09/2017 [facility] gabapentin 300 MG Oral Capsule 300 mg=1 cap, PO, BID, 0 Refill(s) On Hold 05/09/2017 [facility] donepezil 10 mg oral tablet 10 mg=1 tab, PO, Bedtime, 0 Refill(s) On Hold 05/09/2017 [facility] atorvastatin 40 mg oral tablet 40 mg=1 tab, PO, Bedtime, 0 Refill(s) On Hold 05/09/2017 [facility] AMIODarone 200 mg oral tablet 200 mg=1 tab, PO, Bedtime, 0 Refill(s) On Hold 05/09/2017 [facility] Lasix 40 mg, 4 mL, Route: IV, Drug form: INJ, Q12H, Dosing Weight 72.727, kg, Start date: 05/09/17 9:00:00 CDT, Duration: 30 day, Stop date: 06/07/17 21:00:00 CDTNotes: (Same as: Lasix) MEDICATION WASTE Product Size: 40 mg Product Wasted: ___ mg Inactive 05/09/2017 [facility] Saline Flush 0.9% 10 ml, Route: IVP, Drug Form: INJ, Dosing Weight 72.727, kg, Q12H, Start date: 05/09/17 9:00:00 CDT, Duration: 30 day, Stop date: 06/07/17 21:00:00 CDTNotes: (Same as: BD Posiflush) No Longer Active 05/09/2017 [facility] Aspirin 81 MG Chewable Tablet 81 mg, 1 tab, Route: PO, Drug form: CHEWTAB, Q24H, Dosing Weight 72.727, kg, Start date: 05/09/17 7:00:00 CDT, Duration: 30 day, Stop date: 06/07/17 7:00:00 CDTNotes: Take with food. No Longer Active 05/09/2017 [facility] Tylenol 650 mg, 2 tab, Route: PO, Drug form: TAB, Q6H, Dosing Weight 72.727, kg, PRN Pain Score 1-3, Start date: 05/09/17 3:51:00 CDT, Duration: 30 day, Stop date: 06/08/17 3:50:00 CDTNotes: Do not exceed 4 gm/day. (Same as: Tylenol) No Longer Active 05/09/2017 [facility] Rocephin 1 gm, Route: IVPB, [id number], Dosing Weight 72.727, kg, Start date: 05/09/17 3:00:00 CDT, Duration: 10 day, Stop date: 05/18/17 3:00:00 CDT, ABX Indication: Urinary Tract InfectionNotes: (Same As: Rocephin). Use with 100 mL NS and infuse over 30 min MEDICATION WASTE Product Size: 1000 mg Product Wasted: ___ mg No Longer Active 05/09/2017 [facility] Saline Flush 0.9% 10 ml, Route: IVP, Drug Form: INJ, Dosing Weight 72.727, kg, PRN, PRN Line Flush, Start date: 05/09/17 2:29:00 CDT, Duration: 30 day, Stop date: 06/08/17 2:28:00 CDTNotes: (Same as: BD Posiflush) No Longer Active 05/09/2017 [facility] Morphine 2 mg, 1 mL, Route: IVP, Drug form: SOLN, Q15Min, Dosing Weight 72.727, kg, PRN Chest Pain, Start date: 05/09/17 2:29:00 CDT, Duration: 2 doses or times, Stop date: Limited # of times No Longer Active 05/09/2017 [facility] Ondansetron 4 mg, 1 tab, Route: PO, Drug form: TAB, Q8H, Dosing Weight 72.727, kg, PRN Nausea & Vomiting, Start date: 05/09/17 2:29:00 CDT, Duration: 30 day, Stop date: 06/08/17 2:28:00 CDTNotes: (Same as: Zofran) No Longer Active 05/09/2017 [facility] Nitroglycerin 0.4 mg, 1 tab, Route: SL, Drug form: TAB, Q5Min, Dosing Weight 72.727, kg, PRN Chest Pain, Start date: 05/09/17 2:29:00 CDT, Duration: 3 doses or times, Stop date: Limited # of timesNotes: (Same as:N itroquick, Nitrostat) "Do Not Crush" Sublingual tablet No Longer Active 05/09/2017 [facility] Ceftriaxone 1 gm, Route: IVPB, ONCE, Dosing Weight 72.727, kg, Priority: STAT, Start date: 05/09/17 0:58:00 CDT, Duration: 1 doses or times, Stop date: 05/09/17 0:58:00 CDT, ABX Indication: Urinary Tract Infection Inactive 05/09/2017 [facility] Lasix 40 mg, Route: IVP, Drug form: INJ, ONCE, Dosing Weight 72.727, kg, Priority: STAT, Start date: 05/09/17 0:02:00 CDT, Stop date: 05/09/17 0:02:00 CDT Inactive 05/09/2017 [facility] Ativan 0.5 mg, 1 tab, Route: PO, Drug form: TAB, ONCE, Dosing Weight 72.727, kg, Start date: 05/08/17 23:58:00 CDT, Stop date: 05/08/17 23:58:00 CDTNotes: (Same as: Ativan) No Longer Active 05/09/2017 [facility] Albuterol 0.833 MG/ML / Ipratropium [place] 0.167 MG/ML Inhalant Solution 3 mL, Route: NEB, Drug Form: SOLN, Dosing Weight 72.727, kg, ONCE, STAT, Start date: 05/08/17 23:33:00 CDT, Stop date: 05/08/17 23:33:00 CDT Inactive 05/09/2017 [facility] Ativan 0.5 mg, 0.5 tab, Route: PO, Drug form: TAB, ONCE, Dosing Weight 72.727, kg, Start date: 05/08/17 23:05:00 CDT, Stop date: 05/08/17 23:05:00 CDTNotes: (Same as: Ativan) Inactive 05/09/2017 [facility] Sodium Chloride 0.9% (Bolus) IV 1,000 mL, Infuse Over: 1 hr, Route: IV, ONCE, Priority: STAT, Dosing Weight 72.727 kg, Start date: 05/08/17 23:05:00 CDT, Duration: 1 doses or times, Stop date: 05/08/17 23:05:00 CDT Inactive 05/09/2017 [facility] Saline Flush 0.9% 10 mL, Route: IVP, Drug Form: INJ, Dosing Weight 72.727, kg, PRN, PRN Line Flush, Start date: 05/08/17 18:52:00 CDT, Duration: 30 day, Stop date: 06/07/17 18:51:00 CDTNotes: (Same as: BD Posiflush) No Longer Active 05/08/2017 [facility] Gentle Iron oral capsule 1 cap, PO, Daily, # 30 cap, 0 Refill(s), Pharmacy: [id number] Active 12/12/2015 [facility] Saline Flush 0.9% 10 mL, Route: IVP, Drug Form: INJ, Dosing Weight 73.182, kg, PRN, PRN Line Flush, Start date: 12/11/15 22:07:00 CDT, Duration: 30 day, Stop date: 01/10/16 22:06:00 CDTNotes: (Same as: BD Posiflush) No Longer Active 12/12/2015 [facility] Dexilant PO, Daily, 0 Refill(s) Active 05/10/2015 [facility] Morphine 2 mg, Route: IVP, Drug form: INJ, ONCE, Dosing Weight 78.636, kg, Priority: STAT, Start date: 05/01/15 15:26:00, Stop date: 05/01/15 15:26:00 Inactive 05/01/2015 [facility] Sodium Chloride 0.154 MEQ/ML Injectable Solution 1,000 mL, 1,000 ml/hr, Infuse Over: 1 hr, Route: IV, ONCE, Priority: STAT, Dosing Weight 78.636 kg, Start date: 05/01/15 15:24:00, Duration: 1 doses or times, Stop date: 05/01/15 15:24:00 Inactive 05/01/2015 [facility] Acetaminophen 325 MG / Hydrocodone Bitartrate 5 MG Oral Tablet [[place] 5/325] 1 tab, Route: PO, Drug Form: TAB, Dosing Weight 78.636, kg, ONCE, STAT, Start date: 05/01/15 12:47:00, Stop date: 05/01/15 12:47:00Notes: (Same as: [place] 325/5) Do not exceed 4gm/day of acetaminophen. Inactive 05/01/2015 [facility] 3 ML Insulin Glargine 100 UNT/ML Prefilled Syringe [Lantus] 20 unit, SUB-Q, Bedtime, # 1 pen(s), 3 Refill(s) Active 04/19/2015 [facility] Hydrochlorothiazide 25 mg, PO, Daily, 0 Refill(s) Active 04/19/2015 [facility] lisinopril 20 mg oral tablet 20 mg=1 tab, PO, Daily, # 30 tab, 0 Refill(s) Active 04/19/2015 [facility] NovoLog SUB-Q, TID-Before Meals, 15 u before a meal, 0 Refill(s)Special Instructions: 15 u before a meal Active 04/19/2015 [facility] Miralax 17 gm, 1 pkt, Route: PO, Drug form: PWDR, BID, Dosing Weight 83.636, kg, Start date: 01/07/15 9:00:00, Duration: 30 day, Stop date: 02/05/15 17:00:00Notes: Dissolve in 8 oz of water or juice. (Same as: Miralax) Inactive 01/07/2015 [facility] Gentamicin Sulfate (JAIL) 3 MG/ML Ophthalmic Solution 2 drp, OPTH, QID, instill to affected eye, X 5 day, # 5 ml, 0 Refill(s)Special Instructions: instill to affected eye Active 01/07/2015 [facility] Nitroglycerin 0.4 MG Sublingual Tablet 0.4 mg=1 tab, SL, Q5Min, PRN Chest Pain, # 100 tab, 0 Refill(s) Active 01/07/2015 [facility] 12 HR Dextromethorphan Hydrobromide 30 MG / Guaifenesin 600 MG Extended Release Tablet 1 tab, PO, BID, 0 Refill(s) Active 01/07/2015 [facility] clindamycin 300 mg oral capsule 300 mg=1 cap, PO, Q6H, X 10 day, # 40 cap, 0 Refill(s) Active 01/07/2015 [facility] Albuterol 0.833 MG/ML / Ipratropium [place] 0.167 MG/ML Inhalant Solution [DuoNeb] 3 mL, INHALATION, PRN, PRN Wheezing, # 90 mL, 0 Refill(s) Active 01/07/2015 [facility] NovoLOG Mix 70/30 FlexPen 0 Refill(s) Active 01/07/2015 [facility] Insulin, Aspart, Human 1 unit, SUB-Q, TID-Before Meals, PRN Blood Glucose Results, 0 Refill(s) Active 01/07/2015 [facility] Hydrochlorothiazide 25 MG Oral Tablet 12.5 mg=0.5 tab, PO, Daily, # 45 tab, 0 Refill(s) Active 01/07/2015 [facility] lisinopril 20 mg oral tablet 20 mg=1 tab, PO, Daily, # 90 tab, 0 Refill(s) Active 01/07/2015 [facility] metoprolol 10 mg/ml cmpd oral suspension 12.5 mg=0.5 tab, PO, Q12H, # 90 tab, 0 Refill(s) Active 01/07/2015 [facility] polyethylene glycol 3350 oral powder for reconstitution PO, BID, 0 Refill(s) Active 01/07/2015 [facility] pantoprazole 40 mg oral enteric coated tablet 40 mg=1 tab, PO, Before Dinner, 0 Refill(s) Active 01/07/2015 [facility] ferrous sulfate 325 mg oral enteric coated tablet 325 mg=1 tab, PO, TID, 0 Refill(s) Active 01/07/2015 [facility] Sodium Chloride 0.154 MEQ/ML Injectable Solution 500 mL, Rate: 25 ml/hr, Infuse over: 20 hr, Route: IV, Dosing Weight 83.636 kg, Total Volume: 500, Start date: 01/06/15 15:58:00, Duration: 1 day, Stop date: 01/07/15 15:57:00 Inactive 01/06/2015 [facility] Albuterol 0.833 MG/ML / Ipratropium [place] 0.167 MG/ML Inhalant Solution [DuoNeb] 3 ml, Route: INHALATION, Drug Form: SOLN, Dosing Weight 83.636, kg, PRN, PRN Respiratory Protocol, Start date: 01/06/15 9:42:00, Duration: 30 day, Stop date: 02/05/15 9:41:00Notes: (Same as: Duoneb) No Longer Active 01/06/2015 [facility] Fleet Enema 133 mL, Route: WI, Drug Form: SOLN, Dosing Weight 83.636, kg, ONCE, Start date: 01/05/15 6:52:00, Stop date: 01/05/15 6:52:00, For Constipation > 12 years, Pediatric DosingSpecial Instructions: For Constipation > 12 years, Pediatric Dosing Inactive 01/05/2015 [facility] magnesium citrate 300 ml, Route: PO, Drug Form: LIQ, Dosing Weight 83.636, kg, ONCE, Start date: 01/05/15 6:50:00, Stop date: 01/05/15 6:50:00Notes: (Same as: Citrate of Magnesia) Inactive 01/05/2015 [facility] magnesium citrate 150 ml, Route: PO, Drug Form: LIQ, Dosing Weight 83.636, kg, ONCE, Start date: 01/05/15 3:00:00, Stop date: 01/05/15 3:00:00Notes: (Same as: Citrate of Magnesia) Inactive 01/05/2015 [facility] Dulcolax Laxative 10 mg, 1 supp, Route: WI, Drug form: SUPP, ONCE, Dosing Weight 83.636, kg, PRN as needed for constipation, Start date: 01/04/15 17:12:00Notes: (Same As: Dulcolax, Bisco-Lax) No Longer Active 01/04/2015 [facility] Golytely 4,000 ml, Route: PO, Drug Form: PDR/REC, Dosing Weight 83.636, kg, ONCE, Start date: 01/04/15 17:12:00, Duration: 1 doses or times, Stop date: 01/04/15 17:12:00Notes: (polyethylene glycol electrolyte so lution 4 Liter bottle) (Same as: Golytely, Colyte) Inactive 01/04/2015 [facility] ferrous sulfate 325 mg, 1 tab, Route: PO, Drug form: ECTAB, TID, Dosing Weight 83.636, kg, Start date: 01/03/15 9:00:00, Duration: 30 day, Stop date: 02/01/15 17:00:00Notes: Give with food. "Do Not Crush" No Longer Active 01/03/2015 [facility] Insulin, Aspart, Human 4 unit, 0.04 mL, Route: SUB-Q, Drug form: SOLN, TID-Before Meals, Dosing Weight 83.636, kg, PRN Blood Glucose Results, Start date: 01/03/15 0:15:00, Duration: 30 day, Stop date: 02/02/15 0:14:00Notes: Roll in palms of hands gently; Do not shake vigorously. (Same as: NovoLOG) "single patient use only" Stable for 28 days at room temperature. Expires in days from Date No Longer Active 01/03/2015 [facility] Dextrose 50% Syringe 12.5 gm, 25 mL, Route: IVP, Drug Form: INJ, Dosing Weight 83.636, kg, PRN, PRN Blood Glucose Results, Start date: 01/03/15 0:15:00, Duration: 30 day, Stop date: 02/02/15 0:14:00 No Longer Active 01/03/2015 [facility] Glucagon 1 mg, Route: IM, Drug form: PDR/INJ, PRN, Dosing Weight 83.636, kg, PRN Blood Glucose Results, Start date: 01/03/15 0:15:00, Duration: 30 day, Stop date: 02/02/15 0:14:00 No Longer Active 01/03/2015 [facility] d50 syringe 12.5 gm, 25 mL, Route: IVP, Drug Form: INJ, Dosing Weight 83.636, kg, ONCE, Start date: 01/02/15 23:01:00, Stop date: 01/02/15 23:01:00 Inactive 01/03/2015 [facility] Mucinex DM Max Strength 1 tab, Route: PO, Drug Form: ERTAB, Dosing Weight 83.636, kg, BID, Start date: 01/02/15 17:00:00, Duration: 30 day, Stop date: 02/01/15 9:00:00Notes: (Same as: Guaifenex DM) "Do Not Crush" No Longer Active 01/02/2015 [facility] Amiodarone 100 mg, 0.5 tab, Route: PO, Drug form: TAB, Bedtime, Dosing Weight 80, kg, Start date: 12/31/14 21:00:00, Duration: 30 day, Stop date: 01/29/15 21:00:00Notes: (Same as: Cordarone) No Longer Active 01/01/2015 [facility] montelukast 10 mg, 1 tab, Route: PO, Drug form: TAB, Bedtime, Dosing Weight 80, kg, Start date: 12/31/14 21:00:00, Duration: 30 day, Stop date: 01/29/15 21:00:00Notes: (Same as:Singulair) No Longer Active 01/01/2015 [facility] atorvastatin 40 mg, 1 tab, Route: PO, Drug form: TAB, Bedtime, Dosing Weight 80, kg, Start date: 12/31/14 21:00:00, Duration: 30 day, Stop date: 01/29/15 21:00:00Notes: (Same as: Lipitor) No Longer Active 01/01/2015 [facility] Isosorbide 30 mg, 1 tab, Route: PO, Drug form: ERTAB, Bedtime, Dosing Weight 80, kg, Start date: 12/31/14 21:00:00, Duration: 30 day, Stop date: 01/29/15 21:00:00Notes: (Same as:Imdur) "Do Not Crush" Take on empty stomach/ full glass of water. Do not crush No Longer Active 01/01/2015 [facility] Tamiflu 30 mg, 5 mL, Route: PO, Drug form: PDR/REC, [id number], Dosing Weight 83.636, kg, CrCl > 60 ml/hr, Start date: 12/31/14 18:00:00, Duration: 5 day, Stop date: 01/05/15 6:00:00Notes: (Same as: Tamiflu) No Longer Active 12/31/2014 [facility] Clindamycin 300 mg, 50 mL, Route: IVPB, Drug form: INJ, ABXQ8H, Dosing Weight 83.636, kg, Start date: 12/31/14 17:00:00, Duration: 30 day, Stop date: 01/30/15 9:00:00 No Longer Active 12/31/2014 [facility] Dexilant 60 mg, Route: PO, Drug form: DRC, QPM, Dosing Weight 80, kg, Start date: 12/31/14 17:00:00, Duration: 30 day, Stop date: 01/29/15 17:00:00 No Longer Active 12/31/2014 [facility] Chlordiazepoxide Hydrochloride 5 MG / Clidinium bromide 2.5 MG Oral Capsule 1 cap, Route: PO, Drug Form: CAP, Dosing Weight 80, kg, QPM, Start date: 12/31/14 17:00:00, Duration: 30 day, Stop date: 01/29/15 17:00:00Notes: (Same As: Librax) No Longer Active 12/31/2014 [facility] Protonix 40 mg, 1 tab, Route: PO, Drug form: ECTAB, Before Dinner, Start date: 12/31/14 16:30:00, Duration: 30 day, Stop date: 01/29/15 16:30:00Notes: Tablet should not be chewed or crushed. (Same as: Protonix) No Longer Active 12/31/2014 [facility] hydrochlorothiazide 25 mg oral tablet 12.5 mg, 0.5 tab, Route: PO, Drug form: TAB, Daily, Start date: 12/31/14 9:00:00, Duration: 30 day, Stop date: 01/29/15 9:00:00Notes: (Same as: Hydrodiuril) With food. No Longer Active 12/31/2014 [facility] Hydrochlorothiazide 12.5 MG / Lisinopril 20 MG Oral Tablet 1 tab, Route: PO, Drug Form: TAB, Dosing Weight 80, kg, Daily, Start date: 12/31/14 9:00:00, Duration: 30 day, Stop date: 01/29/15 9:00:00 No Longer Active 12/31/2014 [facility] donepezil 10 mg, 2 tab, Route: PO, Drug form: TAB, Daily, Dosing Weight 80, kg, Start date: 12/31/14 9:00:00, Duration: 30 day, Stop date: 01/29/15 9:00:00Notes: (Same as: Aricept) No Longer Active 12/31/2014 [facility] Prinivil 20 mg, 1 tab, Route: PO, Drug form: TAB, Daily, Start date: 12/31/14 9:00:00, Duration: 30 day, Stop date: 01/29/15 9:00:00Notes: (Same as: Prinivil, Zestril) No Longer Active 12/31/2014 [facility] NovoLOG Mix 70/30 FlexPen 25 unit, 0.25 mL, Route: SUB- Q, Drug form: INJ, BID-Before Meals, Start date: 12/31/14 7:30:00, Duration: 30 day, Stop date: 01/29/15 16:30:00Notes: Roll in palms of hands gently; Do not shake vigorously. (Same as: NovoLOG Mix) "single patient use only" Stable for 14 days at room temperature Expires in days from Date No Longer Active 12/31/2014 [facility] Humalog Mix 75/25 25 unit, Route: SUB-Q, Drug form: SUSP, BID-Before Meals, Dosing Weight 80, kg, Start date: 12/31/14 7:30:00, Duration: 30 day, Stop date: 01/29/15 16:30:00 No Longer Active 12/31/2014 [facility] Thyroxine 150 microgram, 1 tab, Route: PO, Drug form: TAB, Q630AM, Dosing Weight 80, kg, Start date: 12/31/14 6:30:00, Duration: 30 day, Stop date: 01/29/15 6:30:00Notes: Take 1 hour before or 2 hours after meal; Enteral feeds may interefere with the absorption of this medication. (Same as: Levothroid) No Longer Active 12/31/2014 [facility] Effexor XR 150 mg, 1 cap, Route: PO, Drug form: ERCAP, Bedtime, Dosing Weight 80, kg, Start date: 12/30/14 22:33:00, Duration: 30 day, Stop date: 01/29/15 21:00:00Notes: Do not open, crush, or chew. (Same As: Effexor XR) No Longer Active 12/31/2014 [facility] tramadol hydrochloride 50 MG Oral Tablet 50 mg, 1 tab, Route: PO, Drug form: TAB, Q6H, Dosing Weight 80, kg, PRN Pain Score 4-6, Start date: 12/30/14 21:53:00, Duration: 30 day, Stop date: 01/29/15 21:52:00Notes: Not to exceed 400mg/day. (Same As: Ultram) No Longer Active 12/31/2014 [facility] Alprazolam 0.25 mg, 1 tab, Route: PO, Drug form: TAB, BID, Dosing Weight 80, kg, PRN as needed for anxiety, Start date: 12/30/14 21:49:00, Duration: 30 day, Stop date: 01/29/15 21:48:00Notes: With food or milk (Same as: Xanax) No Longer Active 12/31/2014 [facility] metoprolol tartrate 12.5 mg, 0.5 tab, Route: PO, Drug form: TAB, Q12H, Dosing Weight 80, kg, Start date: 12/30/14 21:00:00, Duration: 30 day, Stop date: 01/29/15 9:00:00Notes: (Same as: Lopressor) No Longer Active 12/31/2014 [facility] nitroglycerin 0.4 mg sublingual tablet 0.4 mg, 1 tab, Route: SL, Drug form: TAB, Q5Min, PRN Chest Pain, Start date: 12/30/14 17:20:00, Duration: 30 day, Stop date: 01/29/15 17:19:00Notes: (Same as:Nitroquick, Nitrostat) "Do Not Crush" Sublingual tablet No Longer Active 12/30/2014 [facility] atropine 0.5 mg, 5 mL, Route: IVP, Drug form: INJ, PRN, PRN Bradycardia, Start date: 12/30/14 17:19:00, Duration: 30 day, Stop date: 01/29/15 17:18:00 No Longer Active 12/30/2014 [facility] levothyroxine 150 mcg (0.15 mg) oral tablet 150 microgram=1 tab, PO, Q630AM, # 60 tab, 0 Refill(s) Active 12/30/2014 [facility] 24 HR venlafaxine 150 MG Extended Release Capsule [Effexor] 150 mg=1 cap, PO, Bedtime, # 90 cap, 0 Refill(s) Active 12/30/2014 [facility] donepezil 10 mg oral tablet 10 mg, PO, Daily, # 30 tab, 0 Refill(s) Active 12/30/2014 [facility] dexlansoprazole 60 MG Enteric Coated Capsule [Dexilant] 60 mg=1 cap, PO, QPM, 0 Refill(s) No Longer Active 12/30/2014 [facility] naproxen 500 mg oral tablet 500 mg=1 tab, PO, Q12H, PRN Other -See Comment, # 60 tab, 0 Refill(s) Active 12/30/2014 [facility] montelukast 10 mg oral tablet 10 mg=1 tab, PO, Bedtime, # 30 tab, 0 Refill(s) Active 12/30/2014 [facility] Hydrochlorothiazide 12.5 MG / Lisinopril 20 MG Oral Tablet 1 tab, PO, Daily, # 30 tab, 0 Refill(s) Active 12/30/2014 [facility] tramadol hydrochloride 50 MG Oral Tablet 50 mg=1 tab, PO, Q6H, PRN Pain, # 40 tab, 0 Refill(s) Active 12/30/2014 [facility] ALPRAZOLam 0.25 mg oral tablet, disintegrating 0.25 mg=1 tab, PO, BID, PRN for anxiety, 0 Refill(s) Active 12/30/2014 [facility] Acetaminophen 650 mg, 2 tab, Route: PO, Drug form: TAB, Q4H, Dosing Weight 80, kg, PRN Pain 1-3/Temp > 100.4 F, Start date: 12/30/14 8:33:00, Duration: 30 day, Stop date: 01/29/15 8:32:00Notes: Do not exceed 4 gm/ day. (Same as: Tylenol) No Longer Active 12/30/2014 [facility] Ondansetron 4 mg, 2 mL, Route: IVP, Drug form: INJ, Q8H, Dosing Weight 80, kg, PRN Nausea & Vomiting, Start date: 12/30/14 8:33:00, Duration: 30 day, Stop date: 01/29/15 8:32:00Notes: (Same as: Zofran) ME DICATION WASTE Product Size: 4 mg Product Wasted: ___ mg No Longer Active 12/30/2014 [facility] Sodium Chloride 0.9% (titrate) 100 mL 100 mL, Rate: equip maint eng for use with blood product administration, Dosing Weight 80, kg, Route: IV, Total Volume: 100, Start Date: 12/30/14 5:05:00, Duration: 30 day, Stop date: 01/29/15 5:04:00, Replace Every: 24 hr Inactive 12/30/2014 [facility] Vasotec 1.25 mg, 1 mL, Route: IV, Drug form: INJ, ONCE, Dosing Weight 80, kg, Start date: 12/30/14 0:10:00, Stop date: 12/30/14 0:10:00Notes: (Same as: Vasotec-IV) Inactive 12/30/2014 [facility] Sodium Chloride 0.154 MEQ/ML Injectable Solution 500 mL, 500 ml/hr, Infuse Over: 1 hr, Route: IV, 500, Drug form: INJ, ONCE, Priority: STAT, Dosing Weight 80 kg, Start date: 12/30/14 0:01:00, Duration: 1 doses or times, Stop date: 12/30/14 0:01:00 Inactive 12/30/2014 [facility] Sodium Chloride 0.9% (titrate) 250 mL 250 mL, Rate: equip maint eng for use with blood product administration, Dosing Weight 80, kg, Route: IV, Total Volume: 250, Start Date: 12/29/14 23:59:00, Duration: 1 day, Stop date: 12/30/14 23:58:00, Replace Every: 24 hr No Longer Active 12/30/2014 [facility] levofloxacin 500 mg oral tablet 500 mg=1 tab, PO, Daily, # 10 tab, 0 Refill(s) Active 12/24/2014 [facility] 3 ML Insulin, Aspart Protamine, Human 70 UNT/ML / Insulin, Aspart, Human 30 UNT/ML Prefilled Syringe [NovoLog Mix 70/30] 40, SUB-Q, BID, # 10 mL, 0 Refill(s), other Active 07/05/2014 [facility] venlafaxine 25 mg oral tablet 100 mg=4 tab, PO, Bedtime, # 120 tab, 0 Refill(s), called to pharmacy Active 07/05/2014 [facility] Hydroxyzine 20 mg, 2 tab, Route: PO, Drug form: TAB, QID, Dosing Weight 80.909, kg, PRN Itching, Start date: 07/03/14 8:13:00, Duration: 30 day, Stop date: 08/02/14 8:12:00Notes: (Same as: Atarax) Avoid alcohol. No Longer Active 07/03/2014 [facility] Aricept 5 mg, 1 tab, Route: PO, Drug form: TAB, Bedtime, Dosing Weight 80.909, kg, Start date: 07/02/14 21:00:00, Duration: 30 day, Stop date: 07/31/14 21:00:00Notes: (Same as: Aricept) No Longer Active 07/03/2014 [facility] atorvastatin 40 mg, 1 tab, Route: PO, Drug form: TAB, Bedtime, Dosing Weight 80.909, kg, Start date: 07/02/14 21:00:00, Duration: 30 day, Stop date: 07/31/14 21:00:00Notes: (Same as: Lipitor) No Longer Active 07/03/2014 [facility] Amiodarone 100 mg, 0.5 tab, Route: PO, Drug form: TAB, Bedtime, Dosing Weight 80.909, kg, Start date: 07/02/14 21:00:00, Duration: 30 day, Stop date: 07/31/14 21:00:00Notes: (Same as: Cordarone) No Longer Active 07/03/2014 [facility] K-Dur 10 10 mEq, 1 tab, Route: PO, Drug form: ERTAB, BID, Start date: 07/02/14 10:30:00, Duration: 30 day, Stop date: 08/01/14 9:00:00Notes: (Same as: K-Dur 10) "Do Not Crush" With food and full glass of water No Longer Active 07/02/2014 [facility] Isosorbide 30 mg, 1 tab, Route: PO, Drug form: ERTAB, QAM, Dosing Weight 80.909, kg, Start date: 07/02/14 9:00:00, Duration: 30 day, Stop date: 07/31/14 9:00:00Notes: (Same as:Imdur) "Do Not Crush" Take on empty stomach/ full glass of water. Do not crush No Longer Active 07/02/2014 [facility] Nexium 40 mg, Route: PO, Drug form: ECCAP, BID, Dosing Weight 80.909, kg, Start date: 07/02/14 9:00:00, Duration: 30 day, Stop date: 07/31/14 17:00:00 No Longer Active 07/02/2014 [facility] Potassium Chloride 10 MEQ Extended Release Tablet 10 mEq, 7.5 mL, Route: PO, Drug form: LIQ, BID, Dosing Weight 80.909, kg, Start date: 07/02/14 9:00:00, Duration: 30 day, Stop date: 07/31/14 17:00:00Notes: (Same as: Potassium Chloride) Inactive 07/02/2014 [facility] Macrobid 100 mg, Route: PO, Drug form: CAP, BID, Dosing Weight 80.909, kg, Start date: 07/02/14 9:00:00, Duration: 30 day, Stop date: 07/31/14 17:00:00 Inactive 07/02/2014 [facility] Humalog Mix 75/25 Route: SUB-Q, Drug form: SUSP, BID-Meals, Dosing Weight 80.909, kg, Start date: 07/02/14 8:00:00, Duration: 30 day, Stop date: 07/31/14 17:00:00 No Longer Active 07/02/2014 [facility] NovoLOG Mix 70/30 FlexPen 40 unit, 0.4 mL, Route: SUB-Q, Drug form: INJ, BID-Meals, Start date: 07/02/14 8:00:00, Stop date: 07/31/14 17:00:00Notes: Roll in palms of hands gently; Do not shake vigorously. (Same as: NovoLOG Mix) "single patient use only" Stable for 14 days at room temperature Expires in days from Date No Longer Active 07/02/2014 [facility] Protonix 40 mg, 1 tab, Route: PO, Drug form: ECTAB, BID- Before Meals, Start date: 07/02/14 7:30:00, Duration: 30 day, Stop date: 07/31/14 16:30:00Notes: Tablet should not be chewed or crushed. (Same as: David nix) No Longer Active 07/02/2014 [facility] Chlordiazepoxide Hydrochloride 5 MG / Clidinium bromide 2.5 MG Oral Capsule 1 cap, Route: PO, Drug Form: CAP, Dosing Weight 80.909, kg, BID-Before Meals, Start date: 07/02/14 7:30:00, Duration: 30 day, Stop date: 07/31/14 16:30:00Notes: (Same As: Librax) No Longer Active 07/02/2014 [facility] Thyroxine 150 microgram, 1 tab, Route: PO, Drug form: TAB, Q630AM, Dosing Weight 80.909, kg, Start date: 07/02/14 6:30:00, Duration: 30 day, Stop date: 07/31/14 6:30:00Notes: Take 1 hour before or 2 hours after meal; Enteral feeds may interefere with the absorption of this medication. (Same as: Levothroid) No Longer Active 07/02/2014 [facility] Effexor 100 mg, 4 tab, Route: PO, Drug form: TAB, Bedtime, Dosing Weight 80.909, kg, Start date: 07/02/14 1:00:00, Duration: 30 day, Stop date: 07/31/14 21:00:00Notes: (Same As: Effexor) No Longer Active 07/02/2014 [facility] fluticasone nasal 0.05 mg/inh spray 1 inhalation, Route: NASAL, Drug Form: SPRY, Daily, PRN Allergies, Start date: 07/01/14 23:27:00, Duration: 30 day, Stop date: 07/31/14 23:26:00Notes: (Same as: Flonase) No Longer Active 07/02/2014 [facility] Hydrocodone Bitartrate 5 MG / Ibuprofen 200 MG Oral Tablet 1 tab, Route: PO, Drug Form: TAB, Dosing Weight 80.909, kg, Q4H, PRN Pain Score 4-6, Start date: 07/01/14 23:03:00, Duration: 30 day, Stop date: 07/31/14 23:02:00Notes: (Same as: Vicoprofen) No Longer Active 07/02/2014 [facility] 120 ACTUAT mometasone furoate 0.05 MG/ACTUAT Nasal Inhaler [Nasonex] 100 microgram, 2 spray, Route: NASAL, Daily, Drug form: SPRY, PRN as needed for allergy symptoms, Start date: 07/01/14 22:56:00, Stop date: 07/31/14 22:55:00 Inactive 07/02/2014 [facility] Meclizine 12.5 mg, 1 tab, Route: PO, Drug form: TAB, TID, Dosing Weight 80.909, kg, PRN as needed for dizziness, Start date: 07/01/14 22:56:00, Stop date: 07/31/14 22:55:00Notes: (Same as: Antivert) No Longer Active 07/02/2014 [facility] Furosemide 20 MG Oral Tablet 20 mg, 1 tab, Route: PO, Drug form: TAB, Daily, Dosing Weight 80.909, kg, PRN Edema, Start date: 07/01/14 22:55:00, Stop date: 07/31/14 22:54:00, swellingNotes: (Same as: Lasix) May cause GI upset. Give with food or milk. No Longer Active 07/02/2014 [facility] Benadryl 25 mg, 1 tab, Route: PO, Drug form: TAB, Q4H, Dosing Weight 80.909, kg, PRN as needed for itching, Start date: 06/30/14 21:17:00, Duration: 30 day, Stop date: 07/30/14 21:16:00 No Longer Active 07/01/2014 [facility] Benadryl 25 mg, 1 tab, Route: PO, Drug form: TAB, Q6H, Dosing Weight 80.909, kg, PRN as needed for itching, Start date: 06/30/14 21:16:00, Duration: 30 day, Stop date: 07/30/14 21:15:00 No Longer Active 07/01/2014 [facility] Furosemide 20 MG Oral Tablet 20 mg=1 tab, PO, Daily, swelling Active 06/30/2014 [facility] Nitrofurantoin 100 MG Oral Capsule [Macrobid] 100 mg=1 cap, PO, BID No Longer Active 06/30/2014 [facility] 120 ACTUAT mometasone furoate 0.05 MG/ACTUAT Nasal Inhaler [Nasonex] 2 spray, NASAL, Daily, as needed for allergy symptoms Active 06/30/2014 [facility] Insulin Lispro 25 UNT/ML / Insulin, Protamine Lispro, Human 75 UNT/ML Injectable Suspension [Humalog Mix 75/25] 33 unit, SUB-Q, BID-Meals, with breakfast and dinnerSpecial Instructions: with breakfast and dinner Active 06/30/2014 [facility] vancomycin 1.25 gm, 250 mL, Route: IVPB, Drug form: INJ, [id number], Start date: 06/30/14 11:00:00, Duration: 30 day, Stop date: 07/29/14 11:00:00Notes: Same as: Vancocin-NS (premixed) Infusion rate 1001 - 1500 mg: infuse over 1.5 hours No Longer Active 06/30/2014 [facility] Enoxaparin 30 mg, 0.3 mL, Route: SUB-Q, Drug form: INJ, [id number], Dosing Weight 80.909, kg, Start date: 06/30/14 10:00:00, Duration: 30 day, Stop date: 07/29/14 10:00:00Notes: (Same as: Lovenox) No Longer Active 06/30/2014 [facility] Vancomycin Route: IV, Q24H, Dosing Weight 80.909, kg, Start date: 06/30/14 9:00:00, Duration: 30 day, Stop date: 07/29/14 9:00:00 Inactive 06/30/2014 [facility] Influenza Virus Vaccine, Inactivated C-Gijrsfuq-62 (H3N2)-like virus ([id number] [facility] X-175C) strain / Influenza Virus Vaccine, Inactivated N-Thrmjvxl-55, IVR-148 (H1N1) strain / Influenza Virus Vaccine, Inactivated, [id number] 0.5 mL, Route: IM, Drug Form: SUSP, Daily, Start date: 06/30/14 9:00:00, Duration: 1 doses or times, Stop date: 06/30/14 9:00:00Notes: (Same as: Fluzone Quadrivalent) Inactive 06/30/2014 [facility] Insulin, Aspart, Human 4 unit, 0.04 mL, Route: SUB-Q, Drug form: SOLN, TID-Before Meals, Dosing Weight 80.909, kg, PRN Blood Glucose Results, Start date: 06/30/14 4:03:00, Duration: 30 day, Stop date: 07/30/14 4:02:00Notes: Roll in palms of hands gently; Do not shake vigorously. (Same as: NovoLOG) "single patient use only" Stable for 28 days at room temperature. Expires in days from Date No Longer Active 06/30/2014 [facility] Glucagon 1 mg, Route: IM, Drug form: PDR/INJ, PRN, Dosing Weight 80.909, kg, PRN Blood Glucose Results, Start date: 06/30/14 4:03:00, Duration: 30 day, Stop date: 07/30/14 4:02:00 No Longer Active 06/30/2014 [facility] Dextrose 50% Syringe 25 gm, 50 mL, Route: IVP, Drug Form: INJ, Dosing Weight 80.909, kg, PRN, PRN Blood Glucose Results, Start date: 06/30/14 4:03:00, Duration: 30 day, Stop date: 07/30/14 4:02:00 No Longer Active 06/30/2014 [facility] Ceftriaxone 1 gm, Route: IVPB, Drug form: PDR/INJ, [id number], Dosing Weight 80.909, kg, Start date: 06/30/14 4:00:00, Duration: 30 day, Stop date: 07/29/14 4:00:00Notes: (Same As: Rocephin). Use with 100ml NS mini-bag PLUS and infuse over 30 min No Longer Active 06/30/2014 [facility] Vancomycin 1,213.635 mg, Route: IVPB, [id number], Dosing Weight 80.909, kg, Start date: 06/30/14 4:00:00, Duration: 30 day, Stop date: 07/29/14 20:00:00 Inactive 06/30/2014 [facility] Saline Flush 0.9% 10 ml, Route: IVP, Drug Form: INJ, Dosing Weight 80.909, kg, PRN, PRN Line Flush, Start date: 06/30/14 3:47:00, Duration: 30 day, Stop date: 07/30/14 3:46:00Notes: (Same as: BD Posiflush) No Longer Active 06/30/2014 [facility] Vancomycin 1 gm, Route: IVPB, Drug form: INJ, ONCE, Dosing Weight 80.909, kg, Priority: STAT, Start date: 06/30/14 0:31:00, Stop date: 06/30/14 0:31:00 Inactive 06/30/2014 [facility] Docusate Sodium 100 MG Oral Capsule [Colace] 100 mg, 1 cap, Route: PO, Drug form: CAP, BID, Dosing Weight 85.136, kg, Start date: 05/19/14 9:00:00, Duration: 30 day, Stop date: 06/17/14 17:00:00Notes: (Same as: Colace) (Do Not Crush) No Longer Active 05/19/2014 [facility] Nystatin 100 UNT/MG Topical Ointment 1 appl, Route: TOP, BID, Drug form: OINT, Start date: 05/19/14 9:00:00, Duration: 30 day, Stop date: 06/17/14 17:00:00Notes: (Same as:Mycostatin, Nilstat) for external use only. No Longer Active 05/19/2014 [facility] Lactulose 10 gm, 15 ml, Route: PO, Drug Form: SYRP, Dosing Weight 85.136, kg, TID, PRN Constipation, Start date: 05/18/14 19:38:00, Duration: 30 day, Stop date: 06/17/14 19:37:00Notes: (Same as:Chronulac) No Longer Active 05/19/2014 [facility] Vancomycin 1 gm, 200 mL, Route: IVPB, Drug form: INJ, [id number], Dosing Weight 85.136, kg, Start date: 05/14/14 8:00:00, Duration: 30 day, Stop date: 06/12/14 8:00:00 No Longer Active 05/14/2014 [facility] Effexor XR 150 mg, 1 cap, Route: PO, Drug form: ERCAP, Bedtime, Dosing Weight 85.136, kg, Start date: 05/11/14 21:00:00, Duration: 30 day, Stop date: 06/09/14 21:00:00Notes: Do not open, crush, or chew. (Same As: Effexor XR) No Longer Active 05/12/2014 [facility] montelukast 10 mg, 1 tab, Route: PO, Drug form: TAB, Bedtime, Dosing Weight 85.136, kg, Start date: 05/11/14 21:00:00, Duration: 30 day, Stop date: 06/09/14 21:00:00Notes: (Same as:Singulair) No Longer Active 05/12/2014 [facility] Isosorbide 30 mg, 1 tab, Route: PO, Drug form: ERTAB, Bedtime, Dosing Weight 85.136, kg, Start date: 05/11/14 21:00:00, Duration: 30 day, Stop date: 06/09/14 21:00:00Notes: (Same as:Imdur) "Do Not Crush" Take on empty stomach/ full glass of water. Do not crush No Longer Active 05/12/2014 [facility] Aricept 5 mg, 1 tab, Route: PO, Drug form: TAB, Bedtime, Dosing Weight 85.136, kg, Start date: 05/11/14 21:00:00, Duration: 30 day, Stop date: 06/09/14 21:00:00Notes: (Same as: Aricept) No Longer Active 05/12/2014 [facility] atorvastatin 40 mg, 1 tab, Route: PO, Drug form: TAB, Bedtime, Dosing Weight 85.136, kg, Start date: 05/11/14 21:00:00, Duration: 30 day, Stop date: 06/09/14 21:00:00Notes: (Same as: Lipitor) No Longer Active 05/12/2014 [facility] phenol 1 spray, Route: TOP, Q2H, Drug form: SPRY, PRN Sore Throat, Start date: 05/11/14 16:39:00, Duration: 30 day, Stop date: 06/10/14 16:38:00 No Longer Active 05/11/2014 [facility] Protonix 40 mg, 1 tab, Route: PO, Drug form: ECTAB, Before Dinner, Start date: 05/11/14 16:30:00, Duration: 30 day, Stop date: 06/09/14 16:30:00Notes: Tablet should not be chewed or crushed. (Same as: Protonix) No Longer Active 05/11/2014 [facility] Enoxaparin 30 mg, 0.3 mL, Route: SUB-Q, Drug form: INJ, [id number], Dosing Weight 85.136, kg, Start date: 05/11/14 14:00:00, Duration: 30 day, Stop date: 06/09/14 14:00:00Notes: (Same as: Lovenox) No Longer Active 05/11/2014 [facility] Lopressor 25 mg, 1 tab, Route: PO, Drug form: TAB, Q12H, Dosing Weight 85.136, kg, Start date: 05/11/14 9:00:00, Duration: 30 day, Stop date: 06/09/14 21:00:00Notes: (Same as: Lopressor) No Longer Active 05/11/2014 [facility] Pramipexole 0.125 mg, 1 tab, Route: PO, Drug form: TAB, TID, Dosing Weight 85.136, kg, Start date: 05/11/14 9:00:00, Duration: 30 day, Stop date: 06/09/14 17:00:00Notes: (Same as: Mirapex) No Longer Active 05/11/2014 [facility] Potassium Chloride 10 MEQ Extended Release Tablet 10 mEq, 1 tab, Route: PO, Drug form: ERTAB, Daily, Dosing Weight 85.136, kg, Start date: 05/11/14 9:00:00, Duration: 30 day, Stop date: 06/09/14 8:00:00Notes: (Same as: K-Dur 10) "Do Not Crush" With food and full glass of water No Longer Active 05/11/2014 [facility] Amiodarone 100 mg, 0.5 tab, Route: PO, Drug form: TAB, Daily, Dosing Weight 85.136, kg, Start date: 05/11/14 9:00:00, Duration: 30 day, Stop date: 06/09/14 9:00:00Notes: (Same as: Cordarone) No Longer Active 05/11/2014 [facility] Lisinopril 20 mg, 1 tab, Route: PO, Drug form: TAB, Daily, Dosing Weight 85.136, kg, Start date: 05/11/14 9:00:00, Duration: 30 day, Stop date: 06/09/14 9:00:00Notes: (Same as: Prinivil, Zestril) No Longer Active 05/11/2014 [facility] Hydrochlorothiazide 12.5 MG Oral Capsule [Microzide] 12.5 mg, 1 cap, Route: PO, Drug form: CAP, Daily, Dosing Weight 85.136, kg, Start date: 05/11/14 9:00:00, Duration: 30 day, Stop date: 06/09/14 9:00:00Notes: (Same as: Microzide) With food. No Longer Active 05/11/2014 [facility] Nexium 40 mg, Route: PO, Drug form: ECCAP, Daily, Dosing Weight 85.136, kg, Start date: 05/11/14 9:00:00, Duration: 30 day, Stop date: 06/09/14 9:00:00 No Longer Active 05/11/2014 [facility] benzonatate 200 mg, 2 cap, Route: PO, Drug form: CAP, TID, Dosing Weight 85.136, kg, Start date: 05/11/14 9:00:00, Duration: 30 day, Stop date: 06/09/14 17:00:00Notes: (Same As: Cade Soto) "Do Not Crush" No Longer Active 05/11/2014 [facility] NovoLOG Mix 70/30 FlexPen 33 unit, 0.33 mL, Route: SUB- Q, Drug form: INJ, QAM & PM (Insulin), Dosing Weight 85.136, kg, Start date: 05/11/14 7:30:00, Duration: 30 day, Stop date: 06/09/14 16:30:00Notes: Roll in palms of hands gently; Do not shake vigorously. (Same as: NovoLOG Mix) "single patient use only" Stable for 14 days at room temperature Expires in days from Date No Longer Active 05/11/2014 [facility] Chlordiazepoxide Hydrochloride 5 MG / Clidinium bromide 2.5 MG Oral Capsule 1 cap, Route: PO, Drug Form: CAP, Dosing Weight 85.136, kg, BID-Before Meals, Start date: 05/11/14 7:30:00, Duration: 30 day, Stop date: 06/09/14 16:30:00Notes: (Same As: Librax) No Longer Active 05/11/2014 [facility] Thyroxine 150 microgram, 1 tab, Route: PO, Drug form: TAB, Q630AM, Dosing Weight 85.136, kg, Start date: 05/11/14 6:30:00, Duration: 30 day, Stop date: 06/09/14 6:30:00Notes: Take 1 hour before or 2 hours after meal; Enteral feeds may interefere with the absorption of this medication. (Same as: Levothroid) No Longer Active 05/11/2014 [facility] glucagon 1 mg, Route: IM, Drug form: PDR/INJ, PRN, PRN Blood Glucose Results, Start date: 05/11/14 1:27:00, Duration: 30 day, Stop date: 06/10/14 1:26:00 No Longer Active 05/11/2014 [facility] NovoLOG FlexPen 6 unit, 0.06 mL, Route: SUB-Q, Drug form: SOLN, Sliding Scale, PRN Blood Glucose Results, Start date: 05/11/14 1:27:00, Duration: 30 day, Stop date: 06/10/14 1:26:00Notes: Roll in palms of hands gent ly; Do not shake vigorously. (Same as: NovoLOG) "single patient use only" Stable for 28 days at room temperature. Expires in days from Date No Longer Active 05/11/2014 [facility] Dextrose 50% in Water IV 50 mL, Route: IVP, Start date: 05/11/14 1:27:00, Duration: 30 day, Stop date: 06/10/14 1:26:00, PRN Blood Glucose Results No Longer Active 05/11/2014 [facility] NovoLOG FlexPen 4 unit, 0.04 mL, Route: SUB-Q, Drug form: SOLN, Sliding Scale, PRN Blood Glucose Results, Start date: 05/11/14 1:26:00, Duration: 30 day, Stop date: 06/10/14 1:25:00Notes: Roll in palms of hands gent ly; Do not shake vigorously. (Same as: NovoLOG) "single patient use only" Stable for 28 days at room temperature. Expires in days from Date No Longer Active 05/11/2014 [facility] Clindamycin 300 mg, 1 cap, Route: PO, Drug form: CAP, Q6H, Dosing Weight 85.136, kg, Start date: 05/11/14 0:00:00, Duration: 30 day, Stop date: 06/09/14 18:00:00Notes: (Same As: Cleocin) No Longer Active 05/11/2014 [facility] Triamcinolone Acetonide 0.25 MG/ML Topical Cream 1 appl, Route: TOP, TID, Drug form: CRM, PRN Rash, Start date: 05/10/14 23:11:00, Duration: 30 day, Stop date: 06/09/14 23:10:00Notes: (triamcinolone acetonide 0.025% 80gm top CRM) (Same As: Kenalog) No Longer Active 05/11/2014 [facility] Nitroglycerin 0.4 MG Sublingual Tablet 0.4 mg, 1 tab, Route: SL, Drug form: TAB, Q5Min, Dosing Weight 85.136, kg, PRN as needed for chest pain, Start date: 05/10/14 23:11:00, Duration: 30 day, Stop date: 06/09/14 23:10:00Notes: (Same as:Nitroquick, Nitrostat) "Do Not Crush" Sublingual tablet No Longer Active 05/11/2014 [facility] Meclizine 12.5 mg, 1 tab, Route: PO, Drug form: TAB, TID, Dosing Weight 85.136, kg, PRN as needed for dizziness, Start date: 05/10/14 23:10:00, Duration: 30 day, Stop date: 06/09/14 23:09:00Notes: (Same as: An tivert) No Longer Active 05/11/2014 [facility] Lactulose 667 MG/ML Oral Solution 20 gm, 30 mL, Route: PO, Drug Form: SYRP, Dosing Weight 85.136, kg, Q6H, PRN as needed for constipation, Start date: 05/10/14 23:10:00, Duration: 30 day, Stop date: 06/09/14 23:09:00Notes: (Same as:Chronulac) No Longer Active 05/11/2014 [facility] 120 ACTUAT Fluticasone propionate 0.05 MG/ACTUAT Nasal Inhaler 2 inhalation, Route: NASAL, Drug Form: SPRY, Dosing Weight 85.136, kg, BID, PRN Allergic reaction, Start date: 05/10/14 23:09:00, Duration: 30 day, Stop date: 06/09/14 23:08:00Notes: (Same as: Flonase) No Longer Active 05/11/2014 [facility] Benadryl 25 mg, 1 tab, Route: PO, Drug form: TAB, TID, Dosing Weight 85.136, kg, PRN as needed for allergy symptoms, Start date: 05/10/14 23:09:00, Duration: 30 day, Stop date: 06/09/14 23:08:00 No Longer Active 05/11/2014 [facility] cyclobenzaprine 5 mg, 0.5 tab, Route: PO, Drug form: TAB, TID, Dosing Weight 85.136, kg, PRN as needed for muscle spasm, Start date: 05/10/14 23:09:00, Duration: 30 day, Stop date: 06/09/14 23:08:00Notes: (Same As: Flexeril) No Longer Active 05/11/2014 [facility] Alprazolam 0.25 mg, 1 tab, Route: PO, Drug form: TAB, TID, Dosing Weight 85.136, kg, PRN as needed for anxiety, Start date: 05/10/14 23:04:00, Duration: 30 day, Stop date: 06/09/14 23:03:00Notes: With food or milk (Same as: Xanax) No Longer Active 05/11/2014 [facility] Albuterol 0.83 MG/ML Inhalant Solution 2.49 mg, 3 mL, Route: NEB, Drug form: SOLN, RQ12H, Dosing Weight 85.136, kg, Start date: 05/10/14 23:04:00, Stop date: 06/09/14 19:00:00Notes: SEE RT DOCUMENTATION (Same as: Proventil) No Longer Active 05/11/2014 [facility] Acetaminophen 325 MG / Hydrocodone Bitartrate 5 MG Oral Tablet [[place] 5/325] 1 tab, Route: PO, Drug Form: TAB, Dosing Weight 85.136, kg, Q4H, PRN Pain Score 1-3, Start date: 05/10/14 23:00:00, Duration: 30 day, Stop date: 06/09/14 22:59:00Notes: (Same as: [place] 325/5) Do not exceed 4gm/day of acetaminophen. No Longer Active 05/11/2014 [facility] Vancomycin 1 gm, 200 mL, Route: IVPB, Drug form: INJ, [id number], Dosing Weight 85.136, kg, Start date: 05/10/14 23:00:00, Duration: 30 day, Stop date: 06/09/14 11:00:00 No Longer Active 05/11/2014 [facility] Acetaminophen 300 MG / Hydrocodone Bitartrate 5 MG Oral Tablet [Vicodin 5/300] 1 tab, PO, Q6H, # 20 tab, 0 Refill(s) Active 05/07/2014 [facility] Triamcinolone Acetonide 0.25 MG/ML Topical Cream 1 appl, TOP, TID, For rash, # 60 gm, 0 Refill(s) Active 05/07/2014 [facility] clindamycin 300 mg oral capsule 300 mg=1 cap, PO, Q6H, # 40 cap, 0 Refill(s) Active 05/07/2014 [facility] Lisinopril 20 mg, 1 tab, Route: PO, Drug form: TAB, Daily, Dosing Weight 82.273, kg, Start date: 05/04/14 9:00:00, Duration: 30 day, Stop date: 06/02/14 9:00:00Notes: (Same as: Prinivil, Zestril) No Longer Active 05/04/2014 [facility] Hydrochlorothiazide 12.5 MG Oral Capsule [Microzide] 12.5 mg, 1 cap, Route: PO, Drug form: CAP, Daily, Dosing Weight 82.273, kg, Start date: 05/04/14 9:00:00, Duration: 30 day, Stop date: 06/02/14 9:00:00Notes: (Same as: Microzide) With food. No Longer Active 05/04/2014 [facility] Nexium 40 mg, Route: PO, Drug form: ECCAP, Daily, Dosing Weight 82.273, kg, Start date: 05/04/14 9:00:00, Duration: 30 day, Stop date: 06/02/14 9:00:00 No Longer Active 05/04/2014 [facility] Lovenox 30 mg, Route: SUB-Q, Drug form: INJ, Daily, Dosing Weight 82.273, kg, Start date: 05/04/14 9:00:00, Duration: 30 day, Stop date: 06/02/14 9:00:00 No Longer Active 05/04/2014 [facility] Potassium Chloride 10 MEQ Extended Release Tablet 10 mEq, 7.5 mL, Route: PO, Drug form: LIQ, Daily, Dosing Weight 82.273, kg, Start date: 05/04/14 9:00:00, Duration: 30 day, Stop date: 06/02/14 9:00:00Notes: (Same as: Potassium Chloride) No Longer Active 05/04/2014 [facility] Amiodarone 100 mg, 0.5 tab, Route: PO, Drug form: TAB, Daily, Dosing Weight 82.273, kg, Start date: 05/04/14 9:00:00, Duration: 30 day, Stop date: 06/02/14 9:00:00Notes: (Same as: Cordarone) No Longer Active 05/04/2014 [facility] Protonix 40 mg, 1 tab, Route: PO, Drug form: ECTAB, Before Breakfast, Start date: 05/04/14 7:30:00, Duration: 30 day, Stop date: 06/02/14 7:30:00Notes: Tablet should not be chewed or crushed. (Same as: Protonix) No Longer Active 05/04/2014 [facility] Thyroxine 150 microgram, 1 tab, Route: PO, Drug form: TAB, Q630AM, Dosing Weight 82.273, kg, Start date: 05/04/14 6:30:00, Duration: 30 day, Stop date: 06/02/14 6:30:00Notes: Take 1 hour before or 2 hours after meal; Enteral feeds may interefere with the absorption of this medication. (Same as: Levothroid) No Longer Active 05/04/2014 [facility] Benadryl 25 mg, 1 tab, Route: PO, Drug form: TAB, Q6H, Dosing Weight 82.273, kg, PRN as needed for itching, Start date: 05/04/14 0:52:00, Duration: 30 day, Stop date: 06/03/14 0:51:00 No Longer Active 05/04/2014 [facility] Benadryl 25 mg, 1 tab, Route: PO, Drug form: TAB, Q4H, Dosing Weight 82.273, kg, PRN as needed for itching, Start date: 05/04/14 0:50:00, Duration: 30 day, Stop date: 06/03/14 0:49:00 No Longer Active 05/04/2014 [facility] Isosorbide 30 mg, 1 tab, Route: PO, Drug form: ERTAB, Bedtime, Dosing Weight 82.273, kg, Start date: 05/03/14 21:00:00, Duration: 30 day, Stop date: 06/01/14 21:00:00Notes: (Same as:Imdur) "Do Not Crush" Take on empty stomach/ full glass of water. Do not crush No Longer Active 05/04/2014 [facility] Aricept 5 mg, 1 tab, Route: PO, Drug form: TAB, Bedtime, Dosing Weight 82.273, kg, Start date: 05/03/14 21:00:00, Duration: 30 day, Stop date: 06/01/14 21:00:00Notes: (Same as: Aricept) No Longer Active 05/04/2014 [facility] atorvastatin 40 mg, 1 tab, Route: PO, Drug form: TAB, Bedtime, Dosing Weight 82.273, kg, Start date: 05/03/14 21:00:00, Duration: 30 day, Stop date: 06/01/14 21:00:00Notes: (Same as: Lipitor) No Longer Active 05/04/2014 [facility] Effexor XR 150 mg, 1 cap, Route: PO, Drug form: ERCAP, Bedtime, Dosing Weight 82.273, kg, Start date: 05/03/14 21:00:00, Duration: 30 day, Stop date: 06/01/14 21:00:00Notes: Do not open, crush, or chew. (Same As: Effexor XR) No Longer Active 05/04/2014 [facility] montelukast 10 mg, 1 tab, Route: PO, Drug form: TAB, Bedtime, Dosing Weight 82.273, kg, Start date: 05/03/14 21:00:00, Duration: 30 day, Stop date: 06/01/14 21:00:00Notes: (Same as:Singulair) No Longer Active 05/04/2014 [facility] Lopressor 25 mg, 1 tab, Route: PO, Drug form: TAB, Q12H, Dosing Weight 82.273, kg, Start date: 05/03/14 21:00:00, Duration: 30 day, Stop date: 06/02/14 9:00:00Notes: (Same as: Lopressor) No Longer Active 05/04/2014 [facility] benzonatate 200 mg, 2 cap, Route: PO, Drug form: CAP, TID, Dosing Weight 82.273, kg, Start date: 05/03/14 17:00:00, Duration: 30 day, Stop date: 06/02/14 13:00:00Notes: (Same As: Cade Soto) No Longer Active 05/03/2014 [facility] Pramipexole 0.125 mg, 1 tab, Route: PO, Drug form: TAB, TID, Dosing Weight 82.273, kg, Start date: 05/03/14 17:00:00, Duration: 30 day, Stop date: 06/02/14 13:00:00Notes: (Same as: Mirapex) No Longer Active 05/03/2014 [facility] NovoLOG Mix 70/30 FlexPen 33 unit, 0.33 mL, Route: SUB- Q, Drug form: INJ, QAM & PM (Insulin), Dosing Weight 82.273, kg, Start date: 05/03/14 16:30:00, Duration: 30 day, Stop date: 06/02/14 7:30:00Notes: Roll in palms of hands gently; Do not shake vigorously. (Same as: NovoLOG Mix) "single patient use only" Stable for 14 days at room temperature Expires in days from Date No Longer Active 05/03/2014 [facility] Chlordiazepoxide Hydrochloride 5 MG / Clidinium bromide 2.5 MG Oral Capsule 1 cap, Route: PO, Drug Form: CAP, Dosing Weight 82.273, kg, BID-Before Meals, Start date: 05/03/14 16:30:00, Duration: 30 day, Stop date: 06/02/14 7:30:00Notes: (Same As: Librax) No Longer Active 05/03/2014 [facility] Lactulose 667 MG/ML Oral Solution 20 gm, 30 mL, Route: PO, Drug Form: SYRP, Dosing Weight 82.273, kg, Q6H, PRN as needed for constipation, Start date: 05/03/14 16:03:00, Duration: 30 day, Stop date: 06/02/14 16:02:00Notes: (Same as:Chronulac) No Longer Active 05/03/2014 [facility] Nitroglycerin 0.4 MG Sublingual Tablet 0.4 mg, 1 tab, Route: SL, Drug form: TAB, Q5Min, Dosing Weight 82.273, kg, PRN as needed for chest pain, Start date: 05/03/14 16:03:00, Duration: 30 day, Stop date: 06/02/14 16:02:00Notes: (Same as:Nitroquick, Nitrostat) "Do Not Crush" Sublingual tablet No Longer Active 05/03/2014 [facility] Alprazolam 0.25 mg, 1 tab, Route: PO, Drug form: TAB, TID, Dosing Weight 82.273, kg, PRN as needed for anxiety, Start date: 05/03/14 16:01:00, Duration: 30 day, Stop date: 06/02/14 16:00:00Notes: With food or milk (Same as: Xanax) No Longer Active 05/03/2014 [facility] Albuterol 0.417 MG/ML Inhalant Solution 1.25 mg, 3 mL, Route: NEB, Drug form: SOLN, [id number], Dosing Weight 82.273, kg, Start date: 05/03/14 16:01:00, Duration: 30 day, Stop date: 06/02/14 20:00:00Notes: SEE RT DOCUMENTATION (Same as: Proventil) No Longer Active 05/03/2014 [facility] Lovenox 40 mg, 0.4 mL, Route: SUB-Q, Drug form: INJ, [id number], Dosing Weight 82.273, kg, Start date: 05/03/14 5:00:00, Duration: 30 day, Stop date: 06/01/14 5:00:00Notes: (Same as: Lovenox) No Longer Active 05/03/2014 [facility] Insulin, Aspart, Human 2 unit, 0.02 mL, Route: SUB-Q, Drug form: SOLN, TID-Before Meals, Dosing Weight 82.273, kg, PRN Blood Glucose Results, Start date: 05/03/14 4:31:00, Duration: 30 day, Stop date: 06/02/14 4:30:00Notes: Roll in palms of hands gently; Do not shake vigorously. (Same as: NovoLOG) "single patient use only" Stable for 28 days at room temperature. Expires in days from Date No Longer Active 05/03/2014 [facility] Dextrose 50% Syringe 25 gm, 50 mL, Route: IVP, Drug Form: INJ, Dosing Weight 82.273, kg, PRN, PRN Blood Glucose Results, Start date: 05/03/14 4:31:00, Duration: 30 day, Stop date: 06/02/14 4:30:00 No Longer Active 05/03/2014 [facility] Glucagon 1 mg, Route: IM, Drug form: PDR/INJ, PRN, Dosing Weight 82.273, kg, PRN Blood Glucose Results, Start date: 05/03/14 4:31:00, Duration: 30 day, Stop date: 06/02/14 4:30:00 No Longer Active 05/03/2014 [facility] Morphine 1 mg, 0.5 mL, Route: IVP, Drug form: INJ, Q4H, Dosing Weight 82.273, kg, PRN Pain Score 4-6, Priority: STAT, Start date: 05/03/14 4:29:00, Duration: 30 day, Stop date: 06/02/14 4:28:00Notes: (Same as :MORPhine Sulfate) No Longer Active 05/03/2014 [facility] Acetaminophen 650 mg, 2 tab, Route: PO, Drug form: TAB, Q4H, Dosing Weight 82.273, kg, PRN Pain 1-3/Temp > 100.4 F, Priority: STAT, Start date: 05/03/14 4:29:00, Duration: 30 day, Stop date: 06/02/14 4:28:00Notes: Do not exceed 4 gm/day. (Same as: Tylenol) No Longer Active 05/03/2014 [facility] Clindamycin 600 mg, 4 mL, Route: IVPB, [id number], Dosing Weight 82.273, kg, Priority: STAT, Start date: 05/03/14 4:29:00, Duration: 30 day, Stop date: 06/01/14 18:00:00Notes: (clindamycin 150 mg/1 ml (600 mg/4 ml VL) INJ) (Same As: Cleocin) No Longer Active 05/03/2014 [facility] Vancomycin 1,250 mg, 250 mL, Route: IVPB, Drug form: INJ, [id number], Dosing Weight 82.273, kg, Priority: STAT, Start date: 05/03/14 4:29:00, Duration: 30 day, Stop date: 06/01/14 3:00:00Notes: Same as: Vancocin-N S (premixed) Infusion rate 2000 mg: infuse over 2.5 hours No Longer Active 05/03/2014 [facility] Vancomycin 2,000 mg, 500 mL, Route: IVPB, Drug form: SOLN, ONCE, Dosing Weight 82.273, kg, Priority: STAT, Start date: 05/03/14 1:04:00, Stop date: 05/03/14 1:04:00Notes: Same as: Vancocin Infusion rate 2001 mg: infuse over 2.5 hours Inactive 05/03/2014 [facility] Clindamycin 600 mg, 4 mL, Route: IVPB, ONCE, Dosing Weight 82.273, kg, Priority: STAT, Start date: 05/03/14 1:04:00, Stop date: 05/03/14 1:04:00Notes: (clindamycin 150 mg/1 ml (600 mg/4 ml VL) INJ) (Same As: Cleocin) Inactive 05/03/2014 [facility] Saline Flush 0.9% 10 mL, Route: IVP, Drug Form: INJ, Dosing Weight 82.273, kg, PRN, PRN Line Flush, Start date: 05/03/14 1:04:00, Duration: 30 day, Stop date: 06/02/14 1:03:00Notes: Same as: BD Posiflush Sterile No Longer Active 05/03/2014 [facility] Levofloxacin 500 MG Oral Tablet [Levaquin] 500 mg=1 tab, PO, Q24H, # 7 tab, 0 Refill(s) No Longer Active 04/22/2014 [facility] predniSONE 5 mg oral tablet 5 mg=1 tab, PO, Daily, # 20 tab, 0 Refill(s) Active 04/06/2014 [facility] Prednisone 5 mg, 1 tab, Route: PO, Drug form: TAB, Daily, Dosing Weight 83.636, kg, Start date: 04/06/14 9:00:00, Duration: 30 day, Stop date: 05/05/14 9:00:00Notes: Take with food. Inactive 04/06/2014 [facility] Albuterol 0.833 MG/ML / Ipratropium [place] 0.167 MG/ML Inhalant Solution [DuoNeb] 3 ml, Route: INHALATION, Drug Form: SOLN, Dosing Weight 83.636, kg, Q6H, PRN See Respiratory Notes, Start date: 04/03/14 22:27:00, Duration: 30 day, Stop date: 05/03/14 22:26:00, wheezing,SOBNotes: (Same as: Duoneb) No Longer Active 04/04/2014 [facility] Robitussin-AC oral syrup 5 ml, Route: PO, Drug Form: LIQ, Dosing Weight 83.636, kg, Q4H, PRN Cough, Start date: 04/03/14 17:03:00, Duration: 30 day, Stop date: 05/03/14 17:02:00Notes: (Same As: Robitussin AC) No Longer Active 04/03/2014 [facility] Lisinopril 20 mg, 1 tab, Route: PO, Drug form: TAB, Daily, Dosing Weight 83.636, kg, Start date: 04/03/14 9:00:00, Duration: 30 day, Stop date: 05/02/14 9:00:00Notes: (Same as: Prinivil, Zestril) No Longer Active 04/03/2014 [facility] Nexium 40 mg, Route: PO, Drug form: ECCAP, Daily, Dosing Weight 83.636, kg, Start date: 04/03/14 9:00:00, Duration: 30 day, Stop date: 05/02/14 9:00:00 No Longer Active 04/03/2014 [facility] Lovenox 30 mg, Route: SUB-Q, Drug form: INJ, Daily, Dosing Weight 83.636, kg, Start date: 04/03/14 9:00:00, Duration: 30 day, Stop date: 05/02/14 9:00:00 No Longer Active 04/03/2014 [facility] Amiodarone 100 mg, 0.5 tab, Route: PO, Drug form: TAB, Daily, Dosing Weight 83.636, kg, Start date: 04/03/14 9:00:00, Duration: 30 day, Stop date: 05/02/14 9:00:00Notes: (Same as: Cordarone) No Longer Active 04/03/2014 [facility] 24 HR Metoprolol Tartrate 25 MG Extended Release Tablet [Toprol] 25 mg, 1 tab, Route: PO, Drug form: ERTAB, Daily, Start date: 04/03/14 9:00:00, Duration: 30 day, Stop date: 05/02/14 9:00:00Notes: (Same as: Toprol XL) Do Not Crush No Longer Active 04/03/2014 [facility] Protonix 40 mg, 1 tab, Route: PO, Drug form: ECTAB, Before Breakfast, Start date: 04/03/14 7:30:00, Duration: 30 day, Stop date: 05/02/14 7:30:00Notes: Tablet should not be chewed or crushed. (Same as: Protonix) No Longer Active 04/03/2014 [facility] Thyroxine 150 microgram, 1 tab, Route: PO, Drug form: TAB, Q630AM, Dosing Weight 83.636, kg, Start date: 04/03/14 6:30:00, Duration: 30 day, Stop date: 05/02/14 6:30:00Notes: Take 1 hour before or 2 hours after meal; Enteral feeds may interefere with the absorption of this medication. (Same as: Levothroid) No Longer Active 04/03/2014 [facility] Isosorbide 30 mg, 1 tab, Route: PO, Drug form: ERTAB, Bedtime, Dosing Weight 83.636, kg, Start date: 04/02/14 21:00:00, Duration: 30 day, Stop date: 05/01/14 21:00:00Notes: (Same as:Imdur) "Do Not Crush" Take on empty stomach/ full glass of water. No Longer Active 04/03/2014 [facility] Aricept 5 mg, 1 tab, Route: PO, Drug form: TAB, Bedtime, Dosing Weight 83.636, kg, Start date: 04/02/14 21:00:00, Duration: 30 day, Stop date: 05/01/14 21:00:00Notes: (Same as: Aricept) No Longer Active 04/03/2014 [facility] atorvastatin 40 mg, 1 tab, Route: PO, Drug form: TAB, Bedtime, Dosing Weight 83.636, kg, Start date: 04/02/14 21:00:00, Duration: 30 day, Stop date: 05/01/14 21:00:00Notes: (Same as: Lipitor) No Longer Active 04/03/2014 [facility] Effexor XR 150 mg, 1 cap, Route: PO, Drug form: ERCAP, Bedtime, Dosing Weight 83.636, kg, Start date: 04/02/14 21:00:00, Duration: 30 day, Stop date: 05/01/14 21:00:00Notes: Do not open, crush, or chew. (Same As: Effexor XR) No Longer Active 04/03/2014 [facility] Daptomycin 330 mg, Route: IVPB, Drug form: INJ, Q24H, Dosing Weight 83.636, kg, Start date: 04/02/14 19:30:00, Duration: 30 day, Stop date: 05/01/14 19:30:00Notes: To be mixed with NS and run over 30min. (Same As: [place]y) Restricted use to Infectious Disease Physicians. No Longer Active 04/03/2014 [facility] benzonatate 200 mg, 2 cap, Route: PO, Drug form: CAP, TID, Dosing Weight 83.636, kg, Start date: 04/02/14 13:00:00, Duration: 30 day, Stop date: 05/02/14 9:00:00Notes: (Same As: Cade Soto) "Do Not Crush" No Longer Active 04/02/2014 [facility] Pramipexole 0.125 mg, 1 tab, Route: PO, Drug form: TAB, TID, Dosing Weight 83.636, kg, Start date: 04/02/14 13:00:00, Duration: 30 day, Stop date: 05/02/14 9:00:00Notes: (Same as: Mirapex) No Longer Active 04/02/2014 [facility] Enoxaparin 30 mg, 0.3 mL, Route: SUB-Q, Drug form: INJ, [id number], Dosing Weight 83.636, kg, Start date: 04/02/14 10:00:00, Duration: 30 day, Stop date: 05/01/14 10:00:00Notes: (Same as: Lovenox) No Longer Active 04/02/2014 [facility] NS 1,000 mL 1,000 mL, Rate: 100 ml/hr, Infuse over: 10 hr, Route: IV, Dosing Weight 83.636 kg, Total Volume: 1,000, Start date: 04/02/14 9:21:00, Duration: 30 day, Stop date: 05/02/14 9:20:00 No Longer Active 04/02/2014 [facility] Phenergan 12.5 mg, 0.5 mL, Route: IVPB, Q4H, Dosing Weight 83.636, kg, PRN Nausea & Vomiting, Start date: 04/02/14 9:21:00, Duration: 30 day, Stop date: 05/02/14 9:20:00Notes: Do not give IV push. (Same as: Leila varner) No Longer Active 04/02/2014 [facility] Insulin, Aspart, Human 4 unit, 0.04 mL, Route: SUB-Q, Drug form: SOLN, TID-Before Meals, Dosing Weight 83.636, kg, PRN Blood Glucose Results, Start date: 04/02/14 9:16:00, Duration: 30 day, Stop date: 05/02/14 9:15:00Notes: Roll in palms of hands gently; Do not shake vigorously. (Same as: NovoLOG) "single patient use only" Stable for 28 days at room temperature. Expires in days from Date No Longer Active 04/02/2014 [facility] Glucagon 1 mg, Route: IM, Drug form: PDR/INJ, PRN, Dosing Weight 83.636, kg, PRN Blood Glucose Results, Start date: 04/02/14 9:16:00, Duration: 30 day, Stop date: 05/02/14 9:15:00 No Longer Active 04/02/2014 [facility] Dextrose 50% Syringe 12.5 gm, 25 mL, Route: IVP, Drug Form: INJ, Dosing Weight 83.636, kg, PRN, PRN Blood Glucose Results, Start date: 04/02/14 9:16:00, Duration: 30 day, Stop date: 05/02/14 9:15:00 No Longer Active 04/02/2014 [facility] Nitroglycerin 0.4 MG Sublingual Tablet 0.4 mg, 1 tab, Route: SL, Drug form: TAB, Q5Min, Dosing Weight 83.636, kg, PRN as needed for chest pain, Start date: 04/02/14 9:10:00, Duration: 30 day, Stop date: 05/02/14 9:09:00Notes: (Same as:Nitroquick, Nitrostat) "Do Not Crush" Sublingual tablet No Longer Active 04/02/2014 [facility] Lactulose 667 MG/ML Oral Solution 20 gm, 30 mL, Route: PO, Drug Form: SYRP, Dosing Weight 83.636, kg, Q6H, PRN as needed for constipation, Start date: 04/02/14 9:09:00, Duration: 30 day, Stop date: 05/02/14 9:08:00Notes: (Same as:Chronulac) No Longer Active 04/02/2014 [facility] 120 ACTUAT Fluticasone propionate 0.05 MG/ACTUAT Nasal Inhaler 2 inhalation, Route: NASAL, Drug Form: SPRY, Dosing Weight 83.636, kg, BID, PRN Allergies, Start date: 04/02/14 9:09:00, Duration: 30 day, Stop date: 05/02/14 9:08:00Notes: (Same as: Flonase) No Longer Active 04/02/2014 [facility] Benadryl 25 mg, 1 tab, Route: PO, Drug form: TAB, TID, Dosing Weight 83.636, kg, PRN as needed for itching, Start date: 04/02/14 9:08:00, Duration: 30 day, Stop date: 05/02/14 9:07:00 No Longer Active 04/02/2014 [facility] cyclobenzaprine 5 mg, 0.5 tab, Route: PO, Drug form: TAB, TID, Dosing Weight 83.636, kg, PRN as needed for muscle spasm, Start date: 04/02/14 9:08:00, Duration: 30 day, Stop date: 05/02/14 9:07:00Notes: (Same As: Flexeril) No Longer Active 04/02/2014 [facility] Alprazolam 0.25 mg, 1 tab, Route: PO, Drug form: TAB, TID, Dosing Weight 83.636, kg, PRN as needed for anxiety, Start date: 04/02/14 9:07:00, Duration: 30 day, Stop date: 05/02/14 9:06:00Notes: With food or milk (Same as: Xanax) No Longer Active 04/02/2014 [facility] Glucagon 1 mg, Route: IM, Drug form: PDR/INJ, PRN, Dosing Weight 83.636, kg, PRN Blood Glucose Results, Start date: 04/01/14 23:57:00, Duration: 30 day, Stop date: 05/01/14 23:56:00 No Longer Active 04/02/2014 [facility] Dextrose 50% Syringe 25 gm, 50 mL, Route: IVP, Drug Form: INJ, Dosing Weight 83.636, kg, PRN, PRN Blood Glucose Results, Start date: 04/01/14 23:57:00, Duration: 30 day, Stop date: 05/01/14 23:56:00 No Longer Active 04/02/2014 [facility] benzonatate 200 MG Oral Capsule [Tessalon] 200 mg=1 cap, PO, TID, # 30 cap, 0 Refill(s) Active 04/02/2014 [facility] NovoLOG Mix 70/30 FlexPen 15 unit, SUB-Q, QAM & PM (Insulin), 0 Refill(s) Active 04/02/2014 [facility] Hydrochlorothiazide 12.5 MG Oral Capsule [Microzide] 12.5 mg=1 cap, PO, Daily, # 30 cap, 0 Refill(s) Active 04/02/2014 [facility] 0.3 ML Enoxaparin sodium 100 MG/ML Prefilled Syringe [Lovenox] 30 mg, SUB-Q, Daily, # 20 syr, 0 Refill(s) Active 04/02/2014 [facility] lisinopril 20 mg oral tablet 20 mg=1 tab, PO, Daily, # 30 tab, 0 Refill(s) Active 04/02/2014 [facility] Lactulose 667 MG/ML Oral Solution 20 gm=30 ml, PO, Q6H, constipation, # 240 ml, 0 Refill(s) Active 04/02/2014 [facility] Diphenhydramine Hydrochloride 25 MG Oral Capsule [Benadryl] 25 mg=1 cap, PO, TID, as needed for itching, # 30 cap, 0 Refill(s) Active 04/02/2014 [facility] Albuterol 0.83 MG/ML Inhalant Solution 2.49 mg=3 mL, NEB, RQ12H, # 120 ea, 0 Refill(s) Active 04/02/2014 [facility] Vancomycin 1 gm, 200 mL, Route: IVPB, Drug form: INJ, ONCE, Dosing Weight 83.636, kg, Priority: STAT, Start date: 04/01/14 21:20:00, Stop date: 04/01/14 21:20:00 Inactive 04/02/2014 [facility] Pramoxine hydrochloride 10 MG/ML / Zinc Acetate 1 MG/ML Topical Lotion [Calaclear] 1 appl, Route: TOP, BID, Drug form: LOT, Start date: 03/11/14 9:00:00, Duration: 30 day, Stop date: 04/09/14 17:00:00Notes: Same as: Sarna Sensitive Non-Formulary Drug Inactive 03/11/2014 [facility] Acetaminophen 650 mg, 2 tab, Route: PO, Drug form: TAB, Q6H, Dosing Weight 86.364, kg, PRN Pain Score 1-3, Start date: 03/10/14 21:08:00, Duration: 30 day, Stop date: 04/09/14 21:07:00Notes: Do not exceed 4 gm/day. (Same as: Tylenol) No Longer Active 03/11/2014 [facility] Macrobid 100 mg, Route: PO, Drug form: CAP, [id number], Dosing Weight 86.364, kg, Start date: 03/07/14 16:00:00, Duration: 30 day, Stop date: 04/06/14 4:00:00 Inactive 03/07/2014 [facility] meropenem 500 mg, Route: IVPB, [id number], Dosing Weight 86.364, kg, CrCL=26 -49 ml/min, Extended infusion, infuse over 3 hours, Start date: 03/05/14 21:00:00, Duration: 30 day, Stop date: 04/04/14 13:00:00Notes: Same as Merrem.. No Longer Active 03/06/2014 [facility] Vancomycin 1 gm, 200 mL, Route: IVPB, Drug form: INJ, [id number], Dosing Weight 86.364, kg, Start date: 03/05/14 20:00:00, Duration: 30 day, Stop date: 04/04/14 8:00:00 No Longer Active 03/06/2014 [facility] Enoxaparin 40 mg, Route: SUB-Q, Drug form: INJ, [id number], Dosing Weight 86.364, kg, Start date: 03/05/14 10:00:00, Duration: 30 day, Stop date: 04/03/14 10:00:00 Inactive 03/05/2014 [facility] Lovenox 30 mg, 0.3 mL, Route: SUB-Q, Drug form: INJ, [id number], Start date: 03/05/14 10:00:00, Duration: 30 day, Stop date: 04/03/14 10:00:00Notes: (Same as: Lovenox) No Longer Active 03/05/2014 [facility] Benadryl 25 mg, 1 tab, Route: PO, Drug form: TAB, TID, Dosing Weight 86.364, kg, PRN Allergic reaction, Start date: 03/05/14 9:43:00, Duration: 30 day, Stop date: 04/04/14 9:42:00 No Longer Active 03/05/2014 [facility] Humalog Mix 75/25 Pen Route: SUB-Q, Drug form: SUSP, BID, Dosing Weight 86.364, kg, Start date: 03/05/14 9:00:00, Duration: 30 day, Stop date: 04/03/14 17:00:00 Inactive 03/05/2014 [facility] NovoLOG Mix 70/30 FlexPen 33 unit, 0.33 mL, Route: SUB- Q, Drug form: INJ, BID, Start date: 03/05/14 9:00:00, Duration: 30 day, Stop date: 04/03/14 21:00:00Notes: Roll in palms of hands gently; Do not shake vigorously. (Same as: NovoLOG Mix) "single patient use only" Stable for 14 days at room temperature Expires in days from Date No Longer Active 03/05/2014 [facility] hydrochlorothiazide 25 mg oral tablet 12.5 mg, 0.5 tab, Route: PO, Drug form: TAB, Daily, Start date: 03/05/14 9:00:00, Duration: 30 day, Stop date: 04/03/14 9:00:00Notes: (Same as: Hydrodiuril) With food. No Longer Active 03/05/2014 [facility] Potassium Chloride 10 MEQ Extended Release Tablet 10 mEq, 1 tab, Route: PO, Drug form: ERTAB, Daily, Dosing Weight 86.364, kg, Start date: 03/05/14 9:00:00, Duration: 30 day, Stop date: 04/03/14 9:00:00Notes: (Same as: K-Dur 10) "Do Not Crush" With food and full glass of water No Longer Active 03/05/2014 [facility] Prinivil 20 mg, 1 tab, Route: PO, Drug form: TAB, Daily, Start date: 03/05/14 9:00:00, Duration: 30 day, Stop date: 04/03/14 9:00:00Notes: (Same as: Prinivil, Zestril) No Longer Active 03/05/2014 [facility] Vancomycin 1 gm, 200 mL, Route: IVPB, Drug form: INJ, [id number], Dosing Weight 90.909, kg, Start date: 03/05/14 9:00:00, Duration: 30 day, Stop date: 04/03/14 21:00:00 Inactive 03/05/2014 [facility] Hydrochlorothiazide 12.5 MG / Lisinopril 20 MG Oral Tablet 1 tab, Route: PO, Drug Form: TAB, Dosing Weight 86.364, kg, Daily, Start date: 03/05/14 9:00:00, Duration: 30 day, Stop date: 04/03/14 9:00:00 Inactive 03/05/2014 [facility] Amiodarone 100 mg, 0.5 tab, Route: PO, Drug form: TAB, Daily, Dosing Weight 86.364, kg, Start date: 03/05/14 9:00:00, Duration: 30 day, Stop date: 04/03/14 9:00:00Notes: (Same as: Cordarone) No Longer Active 03/05/2014 [facility] Protonix 40 mg, 1 tab, Route: PO, Drug form: ECTAB, BID- Before Meals, Start date: 03/05/14 7:30:00, Duration: 30 day, Stop date: 04/03/14 16:30:00Notes: Tablet should not be chewed or crushed. (Same as: David nix) No Longer Active 03/05/2014 [facility] Chlordiazepoxide Hydrochloride 5 MG / Clidinium bromide 2.5 MG Oral Capsule 1 cap, Route: PO, Drug Form: CAP, Dosing Weight 86.364, kg, BID-Before Meals, Start date: 03/05/14 7:30:00, Duration: 30 day, Stop date: 04/03/14 16:30:00Notes: (Same As: Librax) No Longer Active 03/05/2014 [facility] Nexium 40 mg, Route: PO, Drug form: ECCAP, BID-Before Meals, Dosing Weight 86.364, kg, Start date: 03/05/14 7:30:00, Duration: 30 day, Stop date: 04/03/14 16:30:00 Inactive 03/05/2014 [facility] Thyroxine 150 microgram, 1 tab, Route: PO, Drug form: TAB, Q630AM, Dosing Weight 86.364, kg, Start date: 03/05/14 6:30:00, Duration: 30 day, Stop date: 04/03/14 6:30:00Notes: Take 1 hour before or 2 hours after meal; Enteral feeds may interefere with the absorption of this medication. (Same as: Levothroid) No Longer Active 03/05/2014 [facility] Lopressor 25 mg, 1 tab, Route: PO, Drug form: TAB, Q12H, Dosing Weight 86.364, kg, Start date: 03/05/14 0:18:00, Duration: 30 day, Stop date: 04/03/14 21:00:00Notes: (Same as: Lopressor) No Longer Active 03/05/2014 [facility] Pramipexole 0.125 mg, 1 tab, Route: PO, Drug form: TAB, TID, Dosing Weight 86.364, kg, Start date: 03/05/14 0:17:00, Duration: 30 day, Stop date: 04/03/14 21:00:00Notes: (Same as: Mirapex) No Longer Active 03/05/2014 [facility] Naproxen 500 mg, 1 tab, Route: PO, Drug form: TAB, Q12H, Dosing Weight 86.364, kg, Start date: 03/05/14 0:17:00, Duration: 30 day, Stop date: 04/03/14 21:00:00Notes: (Same as: Naprosyn) Take with food. No Longer Active 03/05/2014 [facility] montelukast 10 mg, 1 tab, Route: PO, Drug form: TAB, Bedtime, Dosing Weight 86.364, kg, Start date: 03/05/14 0:17:00, Duration: 30 day, Stop date: 04/03/14 21:00:00Notes: (Same as:Singulair) No Longer Active 03/05/2014 [facility] Isosorbide 30 mg, 1 tab, Route: PO, Drug form: ERTAB, Bedtime, Dosing Weight 86.364, kg, Start date: 03/05/14 0:16:00, Duration: 30 day, Stop date: 04/03/14 21:00:00Notes: (Same as:Imdur) "Do Not Crush" Take on empty stomach/ full glass of water. Do not crush No Longer Active 03/05/2014 [facility] Effexor XR 150 mg, 1 cap, Route: PO, Drug form: ERCAP, Bedtime, Dosing Weight 86.364, kg, Start date: 03/05/14 0:16:00, Duration: 30 day, Stop date: 04/03/14 21:00:00Notes: Do not open, crush, or chew. (Same As: Effexor XR) No Longer Active 03/05/2014 [facility] Aricept 5 mg, 1 tab, Route: PO, Drug form: TAB, Bedtime, Dosing Weight 86.364, kg, Start date: 03/05/14 0:15:00, Duration: 30 day, Stop date: 04/03/14 21:00:00Notes: (Same as: Aricept) No Longer Active 03/05/2014 [facility] atorvastatin 40 mg, 1 tab, Route: PO, Drug form: TAB, Bedtime, Dosing Weight 86.364, kg, Start date: 03/05/14 0:15:00, Duration: 30 day, Stop date: 04/03/14 21:00:00Notes: (Same as: Lipitor) No Longer Active 03/05/2014 [facility] Nitroglycerin 0.4 MG Sublingual Tablet 0.4 mg, 1 tab, Route: SL, Drug form: TAB, Q5Min, Dosing Weight 86.364, kg, PRN as needed for chest pain, Start date: 03/05/14 0:08:00, Duration: 30 day, Stop date: 04/04/14 0:07:00Notes: (Same as:Nitroquick, Nitrostat) "Do Not Crush" Sublingual tablet No Longer Active 03/05/2014 [facility] 120 ACTUAT mometasone furoate 0.05 MG/ACTUAT Nasal Inhaler [Nasonex] 100 microgram, 2 spray, Route: NASAL, Daily, Drug form: SPRY, PRN as needed for allergy symptoms, Start date: 03/05/14 0:07:00, Duration: 30 day, Stop date: 04/04/14 0:06:00 Inactive 03/05/2014 [facility] Meclizine 12.5 mg, 1 tab, Route: PO, Drug form: TAB, TID, Dosing Weight 86.364, kg, PRN as needed for dizziness, Start date: 03/05/14 0:04:00, Duration: 30 day, Stop date: 04/04/14 0:03:00Notes: (Same as: Antivert) No Longer Active 03/05/2014 [facility] 120 ACTUAT Fluticasone propionate 0.05 MG/ACTUAT Nasal Inhaler 100 microgram, Route: NASAL, Drug Form: SPRY, Dosing Weight 86.364, kg, BID, PRN Allergies, Start date: 03/05/14 0:01:00, Duration: 30 day, Stop date: 04/04/14 0:00:00Notes: (Same as: Flonase) No Longer Active 03/05/2014 [facility] cyclobenzaprine 5 mg, 0.5 tab, Route: PO, Drug form: TAB, TID, Dosing Weight 86.364, kg, PRN as needed for muscle spasm, Start date: 03/05/14 0:00:00, Duration: 30 day, Stop date: 04/03/14 23:59:00Notes: (Same As: Flexeril) No Longer Active 03/05/2014 [facility] Alprazolam 0.25 mg, 1 tab, Route: PO, Drug form: TAB, TID, Dosing Weight 86.364, kg, PRN as needed for anxiety, Start date: 03/04/14 23:57:00, Duration: 30 day, Stop date: 04/03/14 23:56:00Notes: With food or milk (Same as: Xanax) No Longer Active 03/05/2014 [facility] Insulin, Aspart, Human 4 unit, 0.04 mL, Route: SUB-Q, Drug form: SOLN, TID-Before Meals, Dosing Weight 90.909, kg, PRN Blood Glucose Results, Start date: 03/04/14 21:50:00, Duration: 30 day, Stop date: 04/03/14 21:49:00Notes: Roll in palms of hands gently; Do not shake vigorously. (Same as: NovoLOG) "single patient use only" Stable for 28 days at room temperature. Expires in days from Date No Longer Active 03/05/2014 [facility] Dextrose 50% Syringe 12.5 gm, 25 mL, Route: IVP, Drug Form: INJ, Dosing Weight 90.909, kg, PRN, PRN Blood Glucose Results, Start date: 03/04/14 21:50:00, Duration: 30 day, Stop date: 04/03/14 21:49:00 No Longer Active 03/05/2014 [facility] Glucagon 1 mg, Route: IM, Drug form: PDR/INJ, PRN, Dosing Weight 90.909, kg, PRN Blood Glucose Results, Start date: 03/04/14 21:50:00, Duration: 30 day, Stop date: 04/03/14 21:49:00 No Longer Active 03/05/2014 [facility] Zofran 4 mg, 2 mL, Route: IV, Drug form: INJ, Q8H, Dosing Weight 90.909, kg, PRN Nausea, Start date: 03/04/14 21:47:00, Duration: 30 day, Stop date: 04/03/14 21:46:00Notes: (Same as: Zofran) No Longer Active 03/05/2014 [facility] Morphine 4 mg, 2 mL, Route: IVP, Drug form: INJ, Q4H, Dosing Weight 90.909, kg, PRN Pain, Start date: 03/04/14 21:47:00, Duration: 30 day, Stop date: 04/03/14 21:46:00Notes: (Same as:MORPhine Sulfate) No Longer Active 03/05/2014 [facility] Benadryl 25 mg, 0.5 mL, Route: IVP, Drug form: INJ, ONCE, Dosing Weight 90.909, kg, PRN Allergic reaction, Start date: 03/04/14 21:47:00Notes: (Same as: Benadryl) No Longer Active 03/05/2014 [facility] Clindamycin 600 mg, 4 mL, Route: IVPB, [id number], Dosing Weight 90.909, kg, Priority: STAT, Start date: 03/04/14 21:47:00, Duration: 30 day, Stop date: 04/03/14 10:00:00Notes: (clindamycin 150 mg/1 ml (600 mg/4 ml VL) INJ) (Same As: Cleocin) No Longer Active 03/05/2014 [facility] Nitroglycerin 0.4 MG Sublingual Tablet 0.4 mg=1 tab, SL, Q5Min, Chest pain, # 100 tab, 0 Refill(s) Active 03/04/2014 [facility] 120 ACTUAT Fluticasone propionate 0.05 MG/ACTUAT Nasal Inhaler 2 spray, NASAL, BID, Allergies, # 16 gm, 0 Refill(s) Active 03/04/2014 [facility] pramipexole 0.125 mg oral tablet 0.125 mg=1 tab, PO, TID, # 90 tab, 0 Refill(s) Active 03/04/2014 [facility] cyclobenzaprine 5 mg oral tablet 5 mg, PO, TID, Muscle spasm, # 30 tab, 0 Refill(s) Active 03/04/2014 [facility] naproxen 500 mg oral tablet 500 mg=1 tab, PO, Q12H, # 60 tab, 0 Refill(s) Active 03/04/2014 [facility] Hydrochlorothiazide 12.5 MG / Lisinopril 20 MG Oral Tablet 1 tab, PO, Daily, # 30 tab, 0 Refill(s) Active 03/04/2014 [facility] meclizine 12.5 mg oral tablet 12.5 mg=1 tab, PO, TID, for dizziness, # 60 tab, 0 Refill(s) Active 03/04/2014 [facility] atorvastatin 40 mg oral tablet 40 mg=1 tab, PO, Bedtime, # 90 tab, 0 Refill(s) Active 03/04/2014 [facility] 120 ACTUAT mometasone furoate 0.05 MG/ACTUAT Nasal Inhaler [Nasonex] 2 spray, NASAL, Daily, for allergy symptoms, # 17 gm, 0 Refill(s) Active 03/04/2014 [facility] Esomeprazole 40 MG Enteric Coated Capsule [Nexium] 40 mg=1 cap, PO, BID-Before Meals, # 30 cap, 0 Refill(s) Active 03/04/2014 [facility] 3 ML Insulin Lispro 25 UNT/ML / Insulin, Protamine Lispro, Human 75 UNT/ML Prefilled Syringe [Humalog Mix 75/25] 33 unit, SUB-Q, BID, # 3 ml, 0 Refill(s) Active 03/04/2014 [facility] Benadryl 25 mg, Route: IVP, ONCE, Dosing Weight 90.909, kg, Priority: STAT, Start date: 03/04/14 15:27:00, Stop date: 03/04/14 15:27:00 Inactive 03/04/2014 [facility] Clindamycin 600 mg, Route: IVPB, ONCE, Dosing Weight 90.909, kg, Priority: STAT, Start date: 03/04/14 15:27:00, Stop date: 03/04/14 15:27:00 Inactive 03/04/2014 [facility] Vancomycin 1 gm, 200 mL, Route: IVPB, Drug form: INJ, ONCE, Dosing Weight 90.909, kg, Priority: STAT, Start date: 03/04/14 15:27:00, Stop date: 03/04/14 15:27:00 Inactive 03/04/2014 [facility] Acetaminophen 650 mg, Route: PO, Drug form: TAB, ONCE, Dosing Weight 90.909, kg, Priority: STAT, Start date: 03/04/14 15:06:00, Stop date: 03/04/14 15:06:00 Inactive 03/04/2014 [facility] Ibuprofen 400 mg, Route: PO, Drug form: TAB, ONCE, Dosing Weight 90.909, kg, Priority: STAT, Start date: 03/04/14 15:06:00, Stop date: 03/04/14 15:06:00 Inactive 03/04/2014 [facility] Sodium Chloride 0.154 MEQ/ML Injectable Solution 500 mL, Rate: 125 ml/hr, Infuse over: 4 hr, Route: IV, Dosing Weight 90.909 kg, Total Volume: 500, Priority: STAT, Start date: 03/04/14 15:06:00, Duration: 30 day, Stop date: 04/03/14 15:05:00 Inactive 03/04/2014 [facility] Saline Flush 0.9% 5 mL, Route: IVP, Drug Form: INJ, Dosing Weight 90.909, kg, PRN, PRN Line Flush, Start date: 03/04/14 15:06:00, Duration: 30 day, Stop date: 04/03/14 15:05:00Notes: Same as: BD Posiflush Sterile Inactive 03/04/2014 [facility] Levofloxacin 500 MG Oral Tablet [Levaquin] 500 mg=1 tab, PO, Q24H, # 7 tab, 0 Refill(s) Active 01/18/2014 [facility] Keflex 500 mg, 1 cap, Route: PO, Drug form: CAP, [id number], Dosing Weight 90.71, kg, Start date: 10/06/13 16:00:00, Duration: 30 day, Stop date: 11/05/13 8:00:00Take on empty stomach. (Same As: Keflex) Inactive 10/06/2013 [facility] Insulin, Aspart Protamine, Human 70 UNT/ML / Insulin, Aspart, Human 30 UNT/ML Injectable Suspension [NovoLog Mix 70/30] See Special Instructions, SUB-Q, BID-Before Meals, Inject 9 units before breakfast and 7 units before dinner, # 10 mL, 0 Refill(s)Inject 9 units before breakfast and 7 units before dinner Active 10/06/2013 [facility] Lasix 20 mg, 1 tab, Route: PO, Drug form: TAB, ONCE, Dosing Weight 90.71, kg, Start date: 10/04/13 21:30:00, Stop date: 10/04/13 21:30:00(Same as: Lasix) May cause GI upset. Give with food or milk. Inactive 10/05/2013 [facility] Lasix 20 mg, 1 tab, Route: PO, Drug form: TAB, ONCE, Dosing Weight 90.71, kg, Start date: 10/04/13 20:20:00, Stop date: 10/04/13 20:20:00(Same as: Lasix) May cause GI upset. Give with food or milk. Inactive 10/05/2013 [facility] NovoLOG Mix 70/30 FlexPen 20 unit, 0.2 mL, Route: SUB-Q, Drug form: INJ, BID, Start date: 09/30/13 7:45:00, Duration: 30 day, Stop date: 10/29/13 16:45:00Roll in palms of hands gently; Do not shake vigorously. (Same as: NovoLOG Mix) "single patient use only" Stable for 14 days at room temperature Expires in days from Date No Longer Active 09/30/2013 [facility] NovoLOG Mix 70/30 FlexPen 35 unit, 0.35 mL, Route: SUB- Q, Drug form: INJ, BID, Priority: NOW, Start date: 09/29/13 20:39:00, Duration: 30 day, Stop date: 10/29/13 16:45:00Roll in palms of hands gently; Do not shake vigorously. (Same as: NovoLOG Mix) "single patient use only" Stable for 14 days at room temperature Expires in days from Date No Longer Active 09/30/2013 [facility] Lovenox 30 mg, 0.3 mL, Route: SUB-Q, Drug form: INJ, [id number], Dosing Weight 90.71, kg, For CrCl (Same as: Lovenox) No Longer Active 09/29/2013 [facility] predniSONE 10 mg, 1 tab, Route: PO, Drug form: TAB, Daily, Start date: 09/28/13 9:00:00, Duration: 1 day, Stop date: 09/28/13 9:00:00(Same as: PredniSONE) Take with food. Inactive 09/28/2013 [facility] ipratropium 0.02% inhalation solution 0.5 mg, 2.5 mL, Route: NEB, Drug form: SOLN, Q4H, PRN Shortness of breath, Start date: 09/27/13 22:02:00, Duration: 30 day, Stop date: 10/27/13 22:01:00SEE RT DOCUMENTATION (Same as:Atrovent) No Longer Active 09/28/2013 [facility] Xopenex 1.25 mg, 3 mL, Route: NEB, Drug form: SOLN, Q4H, PRN Shortness of breath, Start date: 09/27/13 22:02:00, Duration: 30 day, Stop date: 10/27/13 22:01:00SEE RT DOCUMENTATION (Same as:Xopenex) Non-Formulary No Longer Active 09/28/2013 [facility] predniSONE 20 mg, 2 tab, Route: PO, Drug form: TAB, Daily, Start date: 09/27/13 9:00:00, Duration: 1 day, Stop date: 09/27/13 9:00:00(Same as: PredniSONE) Take with food. Inactive 09/27/2013 [facility] Vancomycin 1 gm, 200 mL, Route: IVPB, Drug form: INJ, [id number], Dosing Weight 90.71, kg, Start date: 09/26/13 14:00:00, Duration: 30 day, Stop date: 10/25/13 14:00:00 No Longer Active 09/26/2013 [facility] nitroglycerin 0.4 mg sublingual tablet 0.4 mg, 1 tab, Route: SL, Drug form: TAB, Q5Min, PRN Chest Pain, Start date: 09/26/13 9:40:00, Duration: 30 day, Stop date: 10/26/13 10:39:00(Same as:Nitroquick, Nitrostat) "Do Not Crush" Sublingual tablet No Longer Active 09/26/2013 [facility] atropine 0.5 mg, 5 mL, Route: IVP, Drug form: INJ, PRN, PRN Bradycardia, Start date: 09/26/13 9:40:00, Duration: 30 day, Stop date: 10/26/13 10:39:00 No Longer Active 09/26/2013 [facility] predniSONE 30 mg, 3 tab, Route: PO, Drug form: TAB, Daily, Start date: 09/26/13 9:00:00, Duration: 1 day, Stop date: 09/26/13 9:00:00(Same as: PredniSONE) Take with food. Inactive 09/26/2013 [facility] meropenem 500 mg, Route: IVPB, Drug form: PDR/INJ, [id number], Dosing Weight 90.71, kg, CrCL=26 -49 ml/min, Extended infusion, infuse over 3 hours, Start date: 09/25/13 10:00:00, Duration: 30 day, Stop date: 10/25/13 3:00:00Same as Merrem.. No Longer Active 09/25/2013 [facility] Prednisone 1 MG Oral Tablet 40 mg, 4 tab, Route: PO, Drug form: TAB, Daily, Start date: 09/25/13 9:00:00, Duration: 1 day, Stop date: 09/25/13 9:00:00(Same as: PredniSONE) Take with food. Inactive 09/25/2013 [facility] NPH Insulin, Pork 25 unit, 0.25 mL, Route: SUB-Q, Drug form: INJ, ONCE, Dosing Weight 90.71, kg, Start date: 09/24/13 23:15:00, Stop date: 09/24/13 23:15:00Roll in palms of hands gently; Do not shake vigorously. (Same as: NovoLIN N, Humulin N) "single patient use only" Stable for 14 days at room temperature Expires in days from Date No Longer Active 09/25/2013 [facility] Solu-Medrol 60 mg, 1.5 mL, Route: IV, Drug form: INJ, Daily, Dosing Weight 90.71, kg, Start date: 09/24/13 12:00:00, Duration: 30 day, Stop date: 10/24/13 9:00:00(Same as:Solu-MEDROL, A-Methapred) Inactive 09/24/2013 [facility] Gentamicin Sulfate (JAIL) 160 mg, 4 mL, Route: IV, Drug form: INJ, ONCE, Dosing Weight 90.71, kg, Start date: 09/24/13 6:54:00, Stop date: 09/24/13 6:54:00(Same as Garamycin) Inactive 09/24/2013 [facility] Thyroxine 150 microgram, 1 tab, Route: PO, Drug form: TAB, [id number], Dosing Weight 90.71, kg, Start date: 09/24/13 6:30:00, Duration: 30 day, Stop date: 10/23/13 6:30:00Take 1 hour before or 2 hours after meal; Ent eral feeds may interefere with the absorption of this medication. (Same as: Levothroid) No Longer Active 09/24/2013 [facility] Effexor XR 150 mg, 1 cap, Route: PO, Drug form: ERCAP, Bedtime, Dosing Weight 90.71, kg, Start date: 09/23/13 21:00:00, Duration: 30 day, Stop date: 10/22/13 21:00:00Do not open, crush, or chew. (Same As: Effexor XR) No Longer Active 09/24/2013 [facility] montelukast 10 mg, 1 tab, Route: PO, Drug form: TAB, Bedtime, Dosing Weight 90.71, kg, Start date: 09/23/13 21:00:00, Duration: 30 day, Stop date: 10/22/13 21:00:00(Same as:Singulair) No Longer Active 09/24/2013 [facility] Aricept 5 mg, 1 tab, Route: PO, Drug form: TAB, Bedtime, Dosing Weight 90.71, kg, Start date: 09/23/13 21:00:00, Duration: 30 day, Stop date: 10/22/13 21:00:00(Same as: Aricept) No Longer Active 09/24/2013 [facility] cefepime 1 gm, Route: IVPB, [id number], Dosing Weight 90.71, kg, (CrCl >/=50 ml/min), Start date: 09/23/13 17:00:00, Duration: 30 day, Stop date: 10/23/13 5:00:00(Same As: Maxipime) No Longer Active 09/23/2013 [facility] Chlordiazepoxide Hydrochloride 5 MG / Clidinium bromide 2.5 MG Oral Capsule 1 cap, Route: PO, Drug Form: CAP, Dosing Weight 90.71, kg, BID- Before Meals, Start date: 09/23/13 16:30:00, Duration: 30 day, Stop date: 10/23/13 7:30:00(Same As: Librax) No Longer Active 09/23/2013 [facility] 24 HR Metoprolol Tartrate 25 MG Extended Release Tablet [Toprol] 25 mg, 1 tab, Route: PO, Drug form: ERTAB, Daily, Start date: 09/23/13 9:00:00, Duration: 30 day, Stop date: 10/22/13 9:00:00(Same as: Toprol XL) Do Not Crush No Longer Active 09/23/2013 [facility] Ketoconazole 20 MG/ML Topical Cream 1 appl, Route: TOP, BID, Drug form: CRM, Start date: 09/23/13 9:00:00, Duration: 30 day, Stop date: 10/22/13 17:00:00Non-Formulary Drug (Same as: Nizoral Topical) No Longer Active 09/23/2013 [facility] Isosorbide 30 mg, 1 tab, Route: PO, Drug form: ERTAB, QAM, Dosing Weight 90.71, kg, Start date: 09/23/13 9:00:00, Duration: 30 day, Stop date: 10/22/13 9:00:00(Same as:Imdur) "Do Not Crush" Take on empty stomach/ full glass of water. Do not crush No Longer Active 09/23/2013 [facility] NovoLIN 70/30 Route: SUB-Q, Drug form: SUSP, BID, Dosing Weight 90.71, kg, Start date: 09/23/13 9:00:00, Duration: 30 day, Stop date: 10/22/13 17:00:00 Inactive 09/23/2013 [facility] Hydrocortisone 25 MG/ML Topical Cream 1 appl, Route: TOP, BID, Drug form: CRM, Start date: 09/23/13 9:00:00, Duration: 30 day, Stop date: 10/22/13 17:00:00 No Longer Active 09/23/2013 [facility] Fluocinonide 0.5 MG/ML Topical Cream 1 appl, Route: TOP, BID, Drug form: CRM, Start date: 09/23/13 9:00:00, Duration: 30 day, Stop date: 10/22/13 17:00:00(Same as: Lidex) No Longer Active 09/23/2013 [facility] Amiodarone 200 mg, 1 tab, Route: PO, Drug form: TAB, Daily, Dosing Weight 90.71, kg, Start date: 09/23/13 9:00:00, Duration: 30 day, Stop date: 10/22/13 9:00:00(Same as: Cordarone) No Longer Active 09/23/2013 [facility] NovoLOG Mix 70/30 FlexPen 42 unit, 0.42 mL, Route: SUB- Q, Drug form: INJ, BID, Start date: 09/23/13 9:00:00, Duration: 30 day, Stop date: 10/22/13 16:45:00Roll in palms of hands gently; Do not shake vigorously. (Same as: NovoLOG Mix) "single patient use only" Stable for 14 days at room temperature Expires in days from Date No Longer Active 09/23/2013 [facility] Alprazolam 0.25 mg, 1 tab, Route: PO, Drug form: TAB, TID, Dosing Weight 90.71, kg, PRN as needed for anxiety, Start date: 09/23/13 7:49:00, Duration: 30 day, Stop date: 10/23/13 7:48:00With food or milk (Same as: Xanax) No Longer Active 09/23/2013 [facility] Albuterol 0.83 MG/ML Inhalant Solution 2.5 mg, 3.01 mL, Route: NEB, Drug form: SOLN, [id number], Dosing Weight 90.71, kg, PRN Wheezing, Start date: 09/23/13 7:49:00, Duration: 30 day, Stop date: 10/23/13 7:48:00SEE RT DOCUMENTATION (Same as: Proventil) No Longer Active 09/23/2013 [facility] Pyridium 100 mg, 1 tab, Route: PO, Drug form: TAB, TID, Dosing Weight 90.909, kg, Start date: 09/22/13 22:00:00, Duration: 3 day, Stop date: 09/25/13 17:00:00Give with meals. (Same as: Pyridium) No Longer Active 09/23/2013 [facility] Vancomycin 1.5 gm, 250 mL, Route: IVPB, Drug form: INJ, [id number], Dosing Weight 90.909, kg, Start date: 09/22/13 20:00:00, Duration: 30 day, Stop date: 10/21/13 20:00:00Same as: Vancocin-NS (premixed) No Longer Active 09/23/2013 [facility] cefepime 1 gm, Route: IV, [id number], Dosing Weight 90.909, kg, (For CrCl 10-29 ml/min), Start date: 09/22/13 20:00:00, Duration: 30 day, Stop date: 10/21/13 20:00:00(Same As: Maxipime) No Longer Active 09/23/2013 [facility] Sodium Chloride 0.154 MEQ/ML Injectable Solution 1,000 mL, Rate: 75 ml/hr, Infuse over: 13.3 hr, Route: IV, Dosing Weight 90.909 kg, Total Volume: 1,000, Start date: 09/22/13 19:54:00, Duration: 30 day, Stop date: 10/22/13 19:53:00 No Longer Active 09/23/2013 [facility] Saline Flush 0.9% 5 ml, Route: IVP, Drug Form: INJ, Dosing Weight 90.909, kg, PRN, PRN Line Flush, Start date: 09/22/13 19:54:00, Duration: 30 day, Stop date: 10/22/13 19:53:00(Same as: BD Posiflush) No Longer Active 09/23/2013 [facility] Insulin, Aspart, Human 6 unit, 0.06 mL, Route: SUB-Q, Drug form: SOLN, TID-Before Meals, Dosing Weight 90.909, kg, PRN Blood Glucose Results, Start date: 09/22/13 19:52:00, Duration: 30 day, Stop date: 10/22/13 19:51:00Roll in palms of hands gently; Do not shake vigorously. (Same as: NovoLOG) "single patient use only" Stable for 28 days at room temperature. Expires in days from Date No Longer Active 09/23/2013 [facility] Dextrose 50% Syringe 12.5 gm, 25 mL, Route: IVP, Drug Form: INJ, Dosing Weight 90.909, kg, PRN, PRN Blood Glucose Results, Start date: 09/22/13 19:52:00, Duration: 30 day, Stop date: 10/22/13 19:51:00 No Longer Active 09/23/2013 [facility] Glucagon 1 mg, Route: IM, Drug form: PDR/INJ, PRN, Dosing Weight 90.909, kg, PRN Blood Glucose Results, Start date: 09/22/13 19:52:00, Duration: 30 day, Stop date: 10/22/13 19:51:00 No Longer Active 09/23/2013 [facility] NPH Insulin, Human 70 UNT/ML / Regular Insulin, Human 30 UNT/ML Injectable Suspension [Novolin 70/30] 42 unit, SUB-Q, BID, 0 Refill(s) No Longer Active 09/23/2013 [facility] Ketoconazole 20 MG/ML Topical Cream 1 appl, TOP, BID, 0 Refill(s) Active 09/23/2013 [facility] Hydrocortisone 25 MG/ML Topical Cream 1 appl, TOP, BID, to psoriasis, 0 Refill(s)to psoriasis Active 09/23/2013 [facility] Fluocinonide 0.5 MG/ML Topical Cream 1 appl, TOP, BID, to psoriasis, 0 Refill(s)to psoriasis Active 09/23/2013 [facility] Albuterol 0.83 MG/ML Inhalant Solution 2.5 mg=3 mL, NEB, Q6H, Shortness of breath, 0 Refill(s) Active 09/23/2013 [facility] Alprazolam 0.25 mg, PO, TID, as needed for anxiety, 0 Refill(s) Active 09/23/2013 [facility] montelukast 10 mg oral tablet 10 mg=1 tab, PO, Bedtime, 0 Refill(s) Active 09/23/2013 [facility] meclizine 25 mg oral tablet 25 mg=1 tab, PO, Daily, 0 Refill(s) No Longer Active 09/23/2013 [facility] Azithromycin 500 mg, 250 mL, Route: IVPB, Drug form: PDR/INJ, [id number], Dosing Weight 90.909, kg, Priority: Routine, Start date: 09/22/13 16:00:00, Duration: 30 day, Stop date: 10/21/13 16:00:00Same as: Zithromax Inactive 09/22/2013 [facility] Ceftriaxone 1 gm, Route: IVPB, Drug form: PDR/INJ, [id number], Dosing Weight 90.909, kg, Priority: Routine, Start date: 09/22/13 16:00:00, Duration: 30 day, Stop date: 10/21/13 16:00:00(Same As: Rocephin). Use with 1 00ml NS mini-bag PLUS and infuse over 30 min Inactive 09/22/2013 [facility] Albuterol 0.833 MG/ML / Ipratropium [place] 0.167 MG/ML Inhalant Solution 3 mL, Route: NEB, Dosing Weight 90.909, kg, ONCE, STAT, Start date: 09/22/13 15:02:00, Stop date: 09/22/13 15:02:00 Inactive 09/22/2013 [facility] Sodium Chloride 0.9% (Bolus) IV 1,000 mL 1,000 mL, Rate: 1,000 ml/hr, Infuse over: 1 hr, Route: IV, Dosing Weight 90.909 kg, Total Volume: 1,000, Priority: STAT, Start date: 09/22/13 15:02:00, Duration: 1 doses or times, Stop date: 09/22/13 16:01:00 Inactive 09/22/2013 [facility] Saline Flush 0.9% 5 mL, Route: IVP, Drug Form: INJ, Dosing Weight 90.909, kg, PRN, PRN Line Flush, Start date: 09/22/13 15:02:00, Duration: 30 day, Stop date: 10/22/13 15:01:00(Same as: BD Posiflush) No Longer Active 09/22/2013 [facility] [place] 5/325 oral tablet 1 tab, PO, Q4-6H, PRN, 20 tab, as needed for pain, Substitution Allowed, Maintenance PO Active [place] 07/10/2012 [facility] propofol 10 mg/ml (titrate) 1000 mL 1,000 mL, Rate: Titrate, Dosing Weight 90.909, kg, Route: IV, Total Volume: 1,000, Start date: 07/10/12 0:54:00, Duration: 30 day, Stop date: 08/09/12 0:53:00, Replace Every: 24 hr IV No Longer Active [place] 07/10/2012 [facility] Allergies, Adverse Reactions, Alerts Substance Category Reaction Severity Reaction type Status Date Reported Comments Source cefuroxime Assertion Drug allergy Active [facility] ciprofloxacin Assertion Drug allergy Active [facility] erythromycin Assertion Drug allergy Active [facility] Iodine JAIL Assertion Drug allergy Active [facility] penicillin Assertion Drug allergy Active [facility] sulfa drugs Assertion Drug allergy Active [facility] trimethoprim Assertion Drug allergy Active [facility] erythromycin<sup>1</sup> Assertion Drug allergy Active [facility] penicillin<sup>2</sup> Assertion Drug allergy Active [facility] cephalexin Assertion Drug allergy Active [facility] Immunizations Immunization Date Given Site Status Last Updated Comments Source pneumococcal 23-valent vaccine 06/18/2017 Not Given [facility], [place] pneumococcal 23-valent vaccine 06/18/2017 Not Given [facility] influenza virus vaccine, inactivated 05/25/2017 Not Given [facility], [place] influenza virus vaccine, inactivated<sup>1</sup> 05/23/2017 Left Deltoid completed Fred Result Comment: changed her mind [facility], [place] pneumococcal 23-valent vaccine<sup>3</sup> 05/23/2017 Right Deltoid completed Fred Result Comment: changed her mind [facility], [place] pneumococcal 23-valent vaccine<sup>4</sup> 05/23/2017 Right Deltoid completed Fred Result Comment: changed her mind [facility] pneumococcal 23-valent vaccine<sup>4</sup> 05/23/2017 Right Deltoid completed Fred Result Comment: changed her mind [facility] influenza virus vaccine, inactivated<sup>2</sup> 05/21/2017 Left deltoid completed Dash Result Comment: pt refused [facility], [place] influenza virus vaccine, inactivated 06/22/2016 Right Deltoid completed Jovel [facility], [facility] influenza virus vaccine, inactivated 06/22/2016 Right Deltoid completed Jovel [facility], [place] influenza virus vaccine, inactivated 06/30/2014 Left deltoid completed Lynn [facility] influenza virus vaccine, inactivated 06/30/2014 Left deltoid completed Shane [facility], [place] pneumococcal 13-valent vaccine<sup>1</sup> 03/11/2014 completed Mal[facility] Admin Note: pt got it at [facility]apr 2012 [facility] pneumococcal 13-valent vaccine<sup>4</sup> 03/11/2014 completed [facility] Admin Note: pt got it at [facility] / [facility]apr 2012 [facility] pneumococcal 13-valent vaccine<sup>3</sup> 03/11/2014 completed Mal[facility] Admin Note: pt got it at [facility] healthcare=apr 2012 [facility] Results Order Name Results Value Reference Range Date Interpretation Comments Source Ext Lower Venous Doppler Bilat US Ext Lower Venous Doppler Bilat US Clinical Indication: - r/o dvt Comparison: None TECHNIQUE: Sonographic evaluation of the bilateral lower extremity veins was performed using high resolution B-mode imaging, along with pulse and color Doppler imaging. FINDINGS: Right lower extremity: The common femoral vein, femoral vein, popliteal vein and visualized posterior tibial/calf veins are patent. There is no echogenic debris to suggest deep venous thrombosis. Left lower extremity: The common femoral vein, superficial femoral vein, popliteal vein and visualized posterior tibial/calf veins are patent. There is no echogenic debris to suggest deep venous thrombosis. In the region of the left popliteal fossa there is a complex cystic lesion measuring 1.9 x 0.7 x 1.8 cm in size. IMPRESSION: 1. No evidence of deep vein thrombosis. 2. 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 SL: [id number] 06/23/2018 - - Read by: Triston Zavala MD Dictated Date/time: 06/23/18 05:00 Electronically Signed by: Triston Zavala MD 06/23/18 05:01 FINAL REPORT [facility] Abdomen/Pelvis wo IV contrast CT Abdomen/Pelvis wo IV contrast CT CT ABDOMEN AND PELVIS WITHOUT CONTRAST INDICATION: Elevated lipase, epigastric pain, CT dose DLP 927.66 COMPARISON: CT abdomen/pelvis 08/10/2017 DISCUSSION: ABDOMEN: There is no consolidation at the visible lung bases. The heart appears enlarged. There are coronary artery calcifications. An endovascular stent stent is noted in the visible ascending aorta. The pancreas is unremarkable. There is no appreciable peripancreatic edema. The gallbladder is not seen, presumed absent. The liver, spleen, adrenal glands, and kidneys are grossly normal in morphology. There is colonic diverticulosis, without evidence of diverticulitis. The stomach and bowel loops are otherwise grossly unremarkable. The appendix is not identified. There is no evidence of acute appendicitis. No free fluid or abnormal fluid collections are seen. The abdominal aorta is normal in caliber. PELVIS: The bladder is unremarkable. The uterus and ovaries are not seen, presumed absent. BONES: No acute bony abnormalities are seen. IMPRESSION: 1. Diverticulosis, without evidence of diverticulitis. 2. Otherwise, no acute abdominal or pelvic abnormalities are visualized. SL:16 06/23/2018 - - Read by: Buck Martínez MD Dictated Date/time: 06/23/18 03:23 Electronically Signed by: Buck Martínez MD 06/23/18 03:32 FINAL REPORT [facility] Ankle 3 views Bilateral DX Ankle 3 views Bilateral DX BILATERAL ANKLE RADIOGRAPH 3 VIEW CLINICAL INDICATION: Posttraumatic bilateral ankle pain, evaluate for fracture COMPARISON: Bilateral tibia/fibula IMPRESSION: No acute bony abnormalities are visualized. The joint spaces are maintained. The soft tissues are radiographically unremarkable. SL:16 06/22/2018 - - Read by: Buck Martínez MD Dictated Date/time: 06/23/18 01:01 Electronically Signed by: Buck Martínez MD 06/23/18 01:03 FINAL REPORT [facility] Pelvis AP DX Pelvis AP DX Clinical Indication: Pain, Trauma - fall, r/o fracture Comparison: None FINDINGS: The AP pelvis radiograph shows no fractures or dislocations of the pelvis. The pelvic and obturator rings are intact. The pubic rami are intact. The symphysis pubis and sacroiliac joints are unremarkable. The visualized sacral foramina are unremarkable. The hip joint spaces are maintained. There is mild hypertrophic change of the acetabula. The femurs are intact.. There is a stimulator device overlying the right pelvis. Bone mineral density is diffusely decreased. If there is further concern, recommend follow-up radiographs or bone scan for complete assessment. IMPRESSION: Osteopenia. Mild degenerative joint disease of the hips. SL:[id number] 06/22/2018 - - Read by: Triston Zavala MD Dictated Date/time: 06/23/18 00:58 Electronically Signed by: Triston Zavala MD 06/23/18 00:59 FINAL REPORT [facility] Chest 1view DX Chest 1view DX Clinical Indication: - r/o pulm edema Comparison: 08/13/2017 FINDINGS: AP chest radiograph was obtained. MEDIASTINUM: The cardiac silhouette is enlarged. The aorta is unremarkable. There are sternal wires surgical clips overlying the mediastinum. LUNGS: Lung volumes are maintained. There are no focal infiltrates or effusions. There are no pneumothoraces noted. BONES: The visualized osseous structures are unremarkable. IMPRESSION: No acute infiltrates or effusions. SL: [id number] 06/22/2018 - - Read by: Triston Zavala MD Dictated Date/time: 06/23/18 00:57 Electronically Signed by: Triston Zavala MD 06/23/18 00:58 FINAL REPORT [facility] Chest 1view DX Chest 1view DX Clinical indication: - sob Comparison: Chest 2 views 08/10/2017 TECHNIQUE: AP chest FINDINGS: Lungs and pleura: Lung volumes are low. There is pulmonary venous congestion. No appreciable pleural effusion or pneumothorax. Heart and mediastinum: The cardiomediastinal silhouette is enlarged. Median sternotomy wires are present. Atherosclerotic ossification is present in the aorta. There is evidence of TAVR. Bones: No acute bony abnormality is identified. IMPRESSION: Mild cardiomegaly with pulmonary venous congestion. SL: [id number] 08/13/2017 - - Read by: Hailey Mcbride MD Dictated Date/time: 08/13/17 17:00 Electronically Signed by: Hailey Mcbride MD 08/13/17 17:01 FINAL REPORT [facility] Ext Lower Arterial Doppler unilat US Ext Lower Arterial Doppler unilat US Patient Name: WILFREDO SORENSEN : 1935; Age: 82 years y/o Female MR: [id number] Study: Ext Lower Arterial Doppler unilat US 08/12/2017 10:24 AM [employer] Ordering Physician: Clinical Indication: - Pseudoaneurysm along the anterior margin of the proximal right SFA on CT abdomen from 06/14/2017; Comparison: CT abdomen pelvis 06/07/1717, 08/10/2017 Arterial Doppler examination of the right lower extremity with attention to the right common femoral and proximal SFA regions. Grayscale, color-flow and spectral Doppler flow analysis. There is a 1.5 cm hypoechoic mass adjacent to the anterior margin of the right common femoral artery. It demonstrates no internal color flow or spectral Doppler flow. This is most consistent with a hematoma or thrombosed pseudoaneurysm. There is patent flow within the common femoral and superficial femoral arteries with normal waveforms and flow velocities are demonstrated. The common femoral and superficial femoral venous segments are patent and compressible as well. IMPRESSION: No patent pseudoaneurysm is noted currently. Hypoechoic solid mass adjacent to the right common femoral artery is most compatible with a thrombosed pseudoaneurysm or hematoma. SL: [id number] 08/12/2017 - - Read by: Toni Cummings MD Dictated Date/time: 08/13/17 08:49 Electronically Signed by: Toni Cummings MD 08/13/17 08:58 FINAL REPORT [facility] CHEM [facility] eGFR 63 mL/min/1.73m2 08/12/2017 Result Comment: The eGFR is calculated using the CKD-EPI formula. In most young, healthy individuals the eGFR will be >90 mL/min/1.73m2. The eGFR declines with age. An eGFR of 60-89 may be normal in some populations, particularly the elderly, for whom the CKD-EPI formula has not been extensively validated. Use of the eGFR is not recommended in the following populations: Individuals with unstable creatinine concentrations, including patients and those with serious co-morbid conditions. Patients with extremes in muscle mass or diet. The data above are obtained from the National Kidney Disease Education Program (NKDEP) which additionally recommends that when the eGFR is used in patients with extremes of body mass index for purposes of drug dosing, the eGFR should be multiplied by the estimated BMI. [facility] CHEM PANEL A/G Ratio 0.9 0.7 - 1.6 08/12/2017 [facility] CHEM PANEL Alk Phos 62 unit/L 39 - 136 08/12/2017 [facility] CHEM PANEL ASPARTATE TRANSAMINASE 24 unit/L 0 - 37 [facility] Bili Total 0.3 mg/dL 0.2 - 1.3 08/12/2017 [facility] CHEM PANEL CO2 30 meq/L 24 - 32 08/12/2017 [facility] CHEM PANEL Chloride Lvl 107 meq/L 95 - 109 08/12/2017 [facility] CHEM PANEL Globulin 3.1 g/dL 2.7 - 4.2 08/12/2017 [facility] CHEM PANEL B/C Ratio 28 6 - 25 08/12/2017 [facility] CHEM PANEL AGAP 8.2 meq/L 10.0 - 20.0 08/12/2017 [facility] CHEM PANEL Calcium Lvl 8.8 mg/dL 8.5 - 10.5 08/12/2017 [facility] CHEM PANEL Sodium Lvl 141 meq/L 135 - 145 08/12/2017 [facility] CHEM PANEL ALANINE AMINOTRANSFERASE 32 unit/L 0 - 65 08/12/2017 [facility] CHEM PANEL Albumin Lvl 2.8 g/dL 3.5 - 5.0 08/12/2017 [facility] CHEM PANEL Total Protein 5.9 g/dL 6.4 - 8.4 08/12/2017 [facility] CHEM PANEL Potassium Lvl 4.2 meq/L 3.5 - 5.1 08/12/2017 [facility] CHEM PANEL Glucose Lvl 186 mg/dL 70 - 99 08/12/2017 [facility] CHEM PANEL Creatinine Lvl 0.86 mg/dL 0.50 - 1.40 08/12/2017 [facility] CHEM PANEL BUN 24 mg/dL 7 - 22 08/12/2017 [facility] HEMATOLOGY Monocytes 7.6 % 2.0 - 12.0 08/12/2017 [facility] HEMATOLOGY Segs 74.3 % 45.0 - 75.0 08/12/2017 [facility] Segs-Bands # 3.8 K/CMM 1.5 - 8.1 08/12/2017 [facility] HEMATOLOGY Eosinophils 0.2 % 0.0 - 4.0 08/12/2017 [facility] HEMATOLOGY Basophils 0.1 % 0.0 - 1.0 08/12/2017 [facility] HEMATOLOGY Lymphocytes 17.8 % 20.0 - 40.0 08/12/2017 [facility] Lymphocytes # 0.9 K/CMM 1.0 - 5.5 08/12/2017 [facility] Monocytes # 0.4 K/CMM 0.0 - 0.8 08/12/2017 [facility] HEMATOLOGY MPV 6.9 fL 7.4 - 10.4 08/12/2017 [facility] HEMATOLOGY Platelet 336 K/CMM 133 - 450 08/12/2017 [facility] HEMATOLOGY RDW 19.4 % 11.5 - 14.5 08/12/2017 [facility] HEMATOLOGY RBC X 10x6 3.51 M/CMM 4.20 - 5.40 08/12/2017 [facility] HEMATOLOGY WBC X 10x3 5.1 K/CMM 3.7 - 10.4 08/12/2017 [facility] HEMATOLOGY MCV 84.1 fL 80.0 - 98.0 08/12/2017 [facility] HEMATOLOGY Hgb 9.7 g/dL 12.0 - 16.0 08/12/2017 [facility] HEMATOLOGY Hct 29.6 % 36.0 - 48.0 08/12/2017 [facility] HEMATOLOGY MCH 27.6 pg 27.0 - 31.0 08/12/2017 [facility] HEMATOLOGY MCHC 32.8 g/dL 32.0 - 36.0 08/12/2017 [facility] CHEM PANEL Lactic Acid Lvl 0.5 mMol/L 0.5 - 2.2 08/11/2017 [facility] BLOOD BANK RESULTS ABO/Rh A POS 08/10/2017 [facility] BLOOD BANK RESULTS Antibody Scrn Negative (08/10/17 2:35 PM) 08/10/2017 [facility] CHEM PANEL Lipase Lvl 192 unit/L 73 - 393 08/10/2017 [facility] URINE AND STOOL Occult Bld Stl Positive *ABN* (08/10/17 2:35 PM) Negative 08/10/2017 [facility] CARDIAC ENZYMES CK-MB INDEX null 0.0 - 2.5 08/10/2017 [facility] CARDIAC ENZYMES CK MB null 0.5 - 3.6 08/10/2017 [facility] CARDIAC ENZYMES Troponin-I null 0.00 - 0.40 08/10/2017 [facility] CARDIAC ENZYMES Total CK 45 unit/L 12 - 191 08/10/2017 [facility] CARDIAC ENZYMES proBNP 427 pg/mL 0 - 450 08/10/2017 [facility] CHEM PANEL Lactic Acid Lvl 0.7 mMol/L 0.5 - 2.2 08/10/2017 [facility] CHEM PANEL eGFR 47 mL/min/1.73m2 08/10/2017 Result Comment: The eGFR is calculated using the CKD-EPI formula. In most young, healthy individuals the eGFR will be >90 mL/min/1.73m2. The eGFR declines with age. An eGFR of 60-89 may be normal in some populations, particularly the elderly, for whom the CKD-EPI formula has not been extensively validated. Use of the eGFR is not recommended in the following populations: Individuals with unstable creatinine concentrations, including patients and those with serious co-morbid conditions. Patients with extremes in muscle mass or diet. The data above are obtained from the National Kidney Disease Education Program (NKDEP) which additionally recommends that when the eGFR is used in patients with extremes of body mass index for purposes of drug dosing, the eGFR should be multiplied by the estimated BMI. [facility] CHEM PANEL Albumin Lvl 3.5 g/dL 3.5 - 5.0 08/10/2017 [facility] CHEM PANEL ALANINE AMINOTRANSFERASE 52 unit/L 0 - 65 08/10/2017 [facility] CHEM PANEL Alk Phos 78 unit/L 39 - 136 08/10/2017 [facility] CHEM PANEL Bili Total 0.4 mg/dL 0.2 - 1.3 08/10/2017 [facility] CHEM PANEL AGAP 8.7 meq/L 10.0 - 20.0 08/10/2017 [facility] CHEM PANEL ASPARTATE TRANSAMINASE 36 unit/L 0 - 37 08/10/2017 [facility] CHEM PANEL Globulin 3.5 g/dL 2.7 - 4.2 08/10/2017 [facility] CHEM PANEL A/G Ratio 1.0 0.7 - 1.6 08/10/2017 [facility] CHEM PANEL B/C Ratio 25 6 - 25 08/10/2017 [facility] CHEM PANEL Glucose Lvl 165 mg/dL 70 - 99 08/10/2017 [facility] CHEM PANEL BUN 27 mg/dL 7 - 22 08/10/2017 [facility] CHEM PANEL Potassium Lvl 3.7 meq/L 3.5 - 5.1 08/10/2017 [facility] CHEM PANEL Creatinine Lvl 1.10 mg/dL 0.50 - 1.40 08/10/2017 [facility] CHEM PANEL Sodium Lvl 135 meq/L 135 - 145 08/10/2017 [facility] CHEM PANEL Calcium Lvl 8.9 mg/dL 8.5 - 10.5 08/10/2017 [facility] CHEM PANEL Chloride Lvl 100 meq/L 95 - 109 08/10/2017 [facility] CHEM PANEL CO2 30 meq/L 24 - 32 08/10/2017 [facility] CHEM PANEL Total Protein 7.0 g/dL 6.4 - 8.4 08/10/2017 [facility] HEMATOLOGY aPTT 19.3 s 22.9 - 35.8 08/10/2017 [facility] HEMATOLOGY PROTIME 12.9 s 12.0 - 14.7 08/10/2017 [facility] HEMATOLOGY INR 0.97 0.85 - 1.17 08/10/2017 [facility] HEMATOLOGY Monocytes 6.7 % 2.0 - 12.0 08/10/2017 [facility] HEMATOLOGY Eosinophils 0.5 % 0.0 - 4.0 08/10/2017 [facility] Basophils 0.4 % 0.0 - 1.0 08/10/2017 [facility] Segs 74.8 % 45.0 - 75.0 08/10/2017 [facility] Lymphocytes 17.6 % 20.0 - 40.0 08/10/2017 [facility] Monocytes # 0.3 K/CMM 0.0 - 0.8 08/10/2017 [facility] Lymphocytes # 0.9 K/CMM 1.0 - 5.5 08/10/2017 [facility] Segs-Bands # 3.8 K/CMM 1.5 - 8.1 08/10/2017 [facility] Platelet 328 K/CMM 133 - 450 08/10/2017 [facility] MPV 7.0 fL 7.4 - 10.4 08/10/2017 [facility] RBC X 10x6 3.93 M/CMM 4.20 - 5.40 08/10/2017 [facility] WBC X 10x3 5.1 K/CMM 3.7 - 10.4 08/10/2017 [facility] MCV 83.3 fL 80.0 - 98.0 08/10/2017 [facility] Hgb 10.7 g/dL 12.0 - 16.0 08/10/2017 [facility] Hct 32.8 % 36.0 - 48.0 08/10/2017 [facility] RDW 18.7 % 11.5 - 14.5 08/10/2017 [facility] MCHC 32.6 g/dL 32.0 - 36.0 08/10/2017 [facility] MCH 27.2 pg 27.0 - 31.0 08/10/2017 [facility] Abdomen/Pelvis wo IV contrast CT Abdomen/Pelvis wo IV contrast CT Abdomen/Pelvis wo IV contrast CT TECHNIQUE: Contiguous transaxial images of the abdomen and pelvis were performed from the lung bases to the superior pubic rami without IV contrast. COMPARISON: 06/14/2017 CLINICAL HX: weakness x 1 week, cough and back pain - diffuse abdominal pain/ dlp 491.30. CT ABDOMEN: 80 Lower Chest: Minimal scarring/atelectasis noted in the lingula. Stable position of aortic stent. Coronary artery calcifications. GI Tract: Sigmoid diverticulosis. No CT evidence for diverticulitis. Nonvisualization of the appendix. There is no evidence for free fluid or free air in the abdomen. Tract and Retroperitoneum: No tract calculi are visualized in either collecting system. No hydronephrosis. Renal cortical volume is reasonably well preserved without evidence for cortical scarring. Abdominal viscera: Noncontrast images of the liver are unremarkable. The spleen, pancreas and both adrenals demonstrate no gross abnormalities given the limitation of lack of IV contrast. Nonvisualization of the gallbladder. Vasculature: Extensive aortoiliac atherosclerotic disease. Bone and Soft tissues: No significant bony abnormality is noted. CT PELVIS: Tiny focus of air is present in the urinary bladder. Question minimal bladder wall thickening. Uterus is not visualized suggesting prior hysterectomy. No gross adnexal mass is visualized. No free fluid is present in the pelvis. IMPRESSION: No tract calculi are noted. No hydronephrosis. Tiny focus of air is present in the urinary bladder along with questionable bladder wall thickening. Correlate clinically for other signs of cystitis. Extensive aortoiliac atherosclerotic disease. Coronary artery calcifications. No other significant abnormality is noted on the noncontrast CT of the abdomen and pelvis SL: CAIT 08/10/2017 - - Read by: Pardeep Burr MD Dictated Date/time: 08/10/17 16:03 Electronically Signed by: Pardeep Burr MD 08/10/17 16:17 [facility] Chest 2 views DX Chest 2 views DX EXAM: Chest 2 views DX DATE: 08/10/2017 1:37 PM [employer] INDICATION: - weakness COMPARISON: 07/30/2017. IMPRESSION: Stable mildly enlarged cardiac silhouette. Postoperative median sternotomy. Marked tortuous atherosclerotic thoracic aorta. Postoperative TAVR. The lungs are emphysematous. Probable mild lingular atelectasis or infiltrate. No significant pleural effusion or pneumothorax detected. Moderate thoracic spondylosis. SL: [id number] 08/10/2017 - - Read by: Elieser Kaye MD Dictated Date/time: 08/10/17 14:25 Electronically Signed by: Elieser Kaye MD 08/10/17 14:26 FINAL REPORT [facility] ELECTROLYTES AGAP 11.7 meq/L 10.0 - 20.0 08/01/2017 [facility] ELECTROLYTES eGFR 58 mL/min/1.73m2 08/01/2017 Result Comment: The eGFR is calculated using the CKD-EPI formula. In most young, healthy individuals the eGFR will be >90 mL/min/1.73m2. The eGFR declines with age. An eGFR of 60-89 may be normal in some populations, particularly the elderly, for whom the CKD-EPI formula has not been extensively validated. Use of the eGFR is not recommended in the following populations: Individuals with unstable creatinine concentrations, including patients and those with serious co-morbid conditions. Patients with extremes in muscle mass or diet. The data above are obtained from the National Kidney Disease Education Program (NKDEP) which additionally recommends that when the eGFR is used in patients with extremes of body mass index for purposes of drug dosing, the eGFR should be multiplied by the estimated BMI. [facility] ELECTROLYTES Sodium Lvl 138 meq/L 135 - 145 08/01/2017 [facility] ELECTROLYTES Potassium Lvl 4.7 meq/L 3.5 - 5.1 08/01/2017 [facility] ELECTROLYTES Chloride Lvl 103 meq/L 95 - 109 08/01/2017 [facility] ELECTROLYTES CO2 28 meq/L 24 - 32 08/01/2017 [facility] ELECTROLYTES BUN 14 mg/dL 7 - 22 08/01/2017 [facility] ELECTROLYTES Creatinine Lvl 0.92 mg/dL 0.50 - 1.40 08/01/2017 [facility] ELECTROLYTES Calcium Lvl 8.0 mg/dL 8.5 - 10.5 08/01/2017 [facility] ELECTROLYTES Glucose Lvl 121 mg/dL 70 - 99 08/01/2017 [facility] MCH 28.1 pg 27.0 - 31.0 08/01/2017 [facility] MCHC 33.5 g/dL 32.0 - 36.0 08/01/2017 [facility] Hgb 9.7 g/dL 12.0 - 16.0 08/01/2017 [facility] Hct 29.0 % 36.0 - 48.0 08/01/2017 [facility] MCV 83.8 fL 80.0 - 98.0 08/01/2017 [facility] WBC 4.6 K/CMM 3.7 - 10.4 08/01/2017 [facility] MPV 7.4 fL 7.4 - 10.4 08/01/2017 [facility] RDW 17.5 % 11.5 - 14.5 08/01/2017 [facility] HEMATOLOGY Platelet 192 K/CMM 133 - 450 08/01/2017 [facility] HEMATOLOGY RBC 3.45 M/CMM 4.20 - 5.40 08/01/2017 [facility] BLOOD BANK RESULTS RBC product Product available 1 (07/31/17 9:50 AM) 07/31/2017 Result Comment: 07/31/2017 10:25 [id number] notified dionne blood is ready for picker feeder [facility] CHEM PANEL eGFR 60 mL/min/1.73m2 07/31/2017 Result Comment: The eGFR is calculated using the CKD-EPI formula. In most young, healthy individuals the eGFR will be >90 mL/min/1.73m2. The eGFR declines with age. An eGFR of 60-89 may be normal in some populations, particularly the elderly, for whom the CKD-EPI formula has not been extensively validated. Use of the eGFR is not recommended in the following populations: Individuals with unstable creatinine concentrations, including patients and those with serious co-morbid conditions. Patients with extremes in muscle mass or diet. The data above are obtained from the National Kidney Disease Education Program (NKDEP) which additionally recommends that when the eGFR is used in patients with extremes of body mass index for purposes of drug dosing, the eGFR should be multiplied by the estimated BMI. [facility] CHEM PANEL Total Protein 5.1 g/dL 6.4 - 8.4 07/31/2017 [facility] CHEM PANEL B/C Ratio 18 6 - 25 07/31/2017 [facility] CHEM PANEL Calcium Lvl 8.0 mg/dL 8.5 - 10.5 07/31/2017 [facility] CHEM PANEL AGAP 12.4 meq/L 10.0 - 20.0 07/31/2017 [facility] CHEM PANEL Glucose Lvl 166 mg/dL 70 - 99 07/31/2017 [facility] CHEM PANEL Creatinine Lvl 0.90 mg/dL 0.50 - 1.40 07/31/2017 [facility] CHEM PANEL BUN 16 mg/dL 7 - 22 07/31/2017 [facility] CHEM PANEL Sodium Lvl 140 meq/L 135 - 145 07/31/2017 [facility] CHEM PANEL Bili Total 0.9 mg/dL 0.2 - 1.3 07/31/2017 [facility] CHEM PANEL CO2 27 meq/L 24 - 32 07/31/2017 [facility] CHEM PANEL Albumin Lvl 2.9 g/dL 3.5 - 5.0 07/31/2017 [facility] CHEM PANEL A/G Ratio 1.3 0.7 - 1.6 07/31/2017 [facility] CHEM PANEL Potassium Lvl 4.4 meq/L 3.5 - 5.1 07/31/2017 [facility] CHEM PANEL Chloride Lvl 105 meq/L 95 - 109 07/31/2017 [facility] CHEM PANEL Alk Phos 60 unit/L 39 - 136 07/31/2017 [facility] CHEM PANEL ALT 12 unit/L 0 - 65 07/31/2017 [facility] CHEM PANEL AST 10 unit/L 0 - 37 07/31/2017 [facility] CHEM PANEL Globulin 2.2 g/dL 2.7 - 4.2 07/31/2017 [facility] HEMATOLOGY MPV 7.1 fL 7.4 - 10.4 07/31/2017 [facility] HEMATOLOGY Platelet 185 K/CMM 133 - 450 07/31/2017 [facility] HEMATOLOGY Hct 21.8 % 36.0 - 48.0 07/31/2017 [facility] HEMATOLOGY Hgb 7.2 g/dL 12.0 - 16.0 07/31/2017 [facility] MCH 27.6 pg 27.0 - 31.0 07/31/2017 [facility] MCHC 32.9 g/dL 32.0 - 36.0 07/31/2017 [facility] HEMATOLOGY RDW 18.1 % 11.5 - 14.5 07/31/2017 [facility] HEMATOLOGY WBC 3.9 K/CMM 3.7 - 10.4 07/31/2017 [facility] HEMATOLOGY MCV 83.7 fL 80.0 - 98.0 07/31/2017 [facility] HEMATOLOGY RBC 2.61 M/CMM 4.20 - 5.40 07/31/2017 [facility] HEMATOLOGY Lymphocytes # 0.5 K/CMM 1.0 - 5.5 07/31/2017 [facility] HEMATOLOGY Eosinophils 0.5 % 0.0 - 4.0 07/31/2017 [facility] HEMATOLOGY Segs-Bands # 3.1 K/CMM 1.5 - 8.1 07/31/2017 [facility] HEMATOLOGY Basophils 0.4 % 0.0 - 1.0 07/31/2017 [facility] HEMATOLOGY Monocytes # 0.3 K/CMM 0.0 - 0.8 07/31/2017 [facility] HEMATOLOGY Segs 80.2 % 45.0 - 75.0 07/31/2017 [facility] HEMATOLOGY Monocytes 7.1 % 2.0 - 12.0 07/31/2017 [facility] HEMATOLOGY Lymphocytes 11.8 % 20.0 - 40.0 07/31/2017 [facility] BLOOD BANK RESULTS ABO/Rh A POS 07/31/2017 [facility] BLOOD BANK RESULTS Antibody Scrn Negative (07/30/17 11:10 PM) 07/31/2017 [facility] BLOOD BANK RESULTS RBC product Product available 2 (07/30/17 11:01 PM) 07/31/2017 Result Comment: 07/31/2017 00:14 [id number] notified nurse [facility] CARDIAC ENZYMES BNP 119 pg/mL <=100 pg/mL 07/31/2017 [facility] CARDIAC ENZYMES CK MB Index null 0.0 - 2.5 07/31/2017 [facility] CARDIAC ENZYMES Troponin-I null 0.00 - 0.40 07/31/2017 [facility] CARDIAC ENZYMES CK MB null 0.5 - 3.6 07/31/2017 [facility] CARDIAC ENZYMES Total CK 53 unit/L 12 - 191 07/31/2017 [facility] CHEM PANEL Glucose Lvl 214 mg/dL 70 - 99 07/31/2017 [facility] CHEM PANEL BUN 19 mg/dL 7 - 22 07/31/2017 [facility] CHEM PANEL Sodium Lvl 137 meq/L 135 - 145 07/31/2017 [facility] CHEM PANEL Potassium Lvl 4.1 meq/L 3.5 - 5.1 07/31/2017 [facility] CHEM PANEL Creatinine Lvl 1.07 mg/dL 0.50 - 1.40 07/31/2017 [facility] CHEM PANEL Chloride Lvl 102 meq/L 95 - 109 07/31/2017 [facility] CHEM PANEL Calcium Lvl 8.4 mg/dL 8.5 - 10.5 07/31/2017 [facility] CHEM PANEL CO2 28 meq/L 24 - 32 07/31/2017 [facility] CHEM PANEL ALT 17 unit/L 0 - 65 07/31/2017 [facility] CHEM PANEL Total Protein 6.3 g/dL 6.4 - 8.4 07/31/2017 [facility] CHEM PANEL Albumin Lvl 3.2 g/dL 3.5 - 5.0 07/31/2017 [facility] CHEM PANEL AST 17 unit/L 0 - 37 07/31/2017 [facility] CHEM PANEL Alk Phos 68 unit/L 39 - 136 07/31/2017 [facility] CHEM PANEL Globulin 3.1 g/dL 2.7 - 4.2 07/31/2017 [facility] [facility] CHEM PANEL eGFR 48 mL/min/1.73m2 07/31/2017 Result Comment: The eGFR is calculated using the CKD-EPI formula. In most young, healthy individuals the eGFR will be >90 mL/min/1.73m2. The eGFR declines with age. An eGFR of 60-89 may be normal in some populations, particularly the elderly, for whom the CKD-EPI formula has not been extensively validated. Use of the eGFR is not recommended in the following populations: Individuals with unstable creatinine concentrations, including patients and those with serious co-morbid conditions. Patients with extremes in muscle mass or diet. The data above are obtained from the National Kidney Disease Education Program (NKDEP) which additionally recommends that when the eGFR is used in patients with extremes of body mass index for purposes of drug dosing, the eGFR should be multiplied by the estimated BMI. [facility] CHEM PANEL Bili Total 0.2 mg/dL 0.2 - 1.3 07/31/2017 [facility] CHEM PANEL AGAP 11.1 meq/L 10.0 - 20.0 07/31/2017 [facility] CHEM PANEL B/C Ratio 18 6 - 25 07/31/2017 [facility] CHEM PANEL A/G Ratio 1.0 0.7 - 1.6 07/31/2017 [facility] HEMATOLOGY Monocytes # 0.3 K/CMM 0.0 - 0.8 07/31/2017 [facility] HEMATOLOGY Lymphocytes # 1.1 K/CMM 1.0 - 5.5 07/31/2017 [facility] HEMATOLOGY Segs-Bands # 3.0 K/CMM 1.5 - 8.1 07/31/2017 [facility] HEMATOLOGY Basophils 0.7 % 0.0 - 1.0 07/31/2017 [facility] HEMATOLOGY Eosinophils 0.4 % 0.0 - 4.0 07/31/2017 [facility] HEMATOLOGY Monocytes 7.2 % 2.0 - 12.0 07/31/2017 [facility] HEMATOLOGY Lymphocytes 24.9 % 20.0 - 40.0 07/31/2017 [facility] HEMATOLOGY Segs 66.8 % 45.0 - 75.0 07/31/2017 [facility] HEMATOLOGY INR 1.06 0.85 - 1.17 07/31/2017 [facility] HEMATOLOGY PTT 28.8 s 22.9 - 35.8 07/31/2017 [facility] PT 13.8 s 12.0 - 14.7 07/31/2017 [facility] Hgb 5.6 g/dL 12.0 - 16.0 07/31/2017 Result Comment: Critical Result(s) called to Francois Castañeda at 07/30/2017 22:53 by BE. Read back OK. [facility] Hct 18.1 % 36.0 - 48.0 07/31/2017 [facility] MCV 84.5 fL 80.0 - 98.0 07/31/2017 [facility] MCH 26.3 pg 27.0 - 31.0 07/31/2017 [facility] MCHC 31.1 g/dL 32.0 - 36.0 07/31/2017 [facility] RDW 19.6 % 11.5 - 14.5 07/31/2017 [facility] Platelet 234 K/CMM 133 - 450 07/31/2017 [facility] MPV 7.3 fL 7.4 - 10.4 07/31/2017 [facility] RBC 2.14 M/CMM 4.20 - 5.40 07/31/2017 [facility] WBC 4.4 K/CMM 3.7 - 10.4 07/31/2017 [facility] Chest 1view DX Chest 1view DX Patient Name: WILFREDO SORENSEN : 1935; Age: 82 years y/o Female MR: [id number] * CHEST, portable, 1 view HISTORY: Chest pain COMPARISON: 06/14/2017. A study of 05/14/2017 and a chest computed tomography scan of 05/15/2017 were reviewed. TECHNIQUE: A portable frontal radiograph of the chest was obtained. FINDINGS: There are poststernotomy changes. There is mild cardiomegaly. There is no overt failure. There is slight chronic elevation of the right hemidiaphragm. The lungs are clear. There are no pleural effusions. There are moderate atherosclerotic calcifications involving the thoracic aorta. There are mild scattered degenerative changes involving the thoracic spine. The regional skeleton is otherwise unremarkable. The regional skeleton is unremarkable. IMPRESSION: 1. No active disease. 2. Poststernotomy changes. 3. Mild cardiomegally. SL: CASSIDY 07/30/2017 - - Read by: Edwin Pham MD Dictated Date/time: 07/30/17 22:03 Electronically Signed by: Edwin Pham MD 07/30/17 22:06 FINAL REPORT [facility] CHEM PANEL Phosphorus 3.0 mg/dL 2.5 - 4.5 06/18/2017 [facility] CHEM PANEL Magnesium Lvl 2.5 mg/dL 1.8 - 2.4 06/18/2017 [facility] ELECTROLYTES AGAP 13.1 meq/L 10.0 - 20.0 06/18/2017 [facility] ELECTROLYTES BUN 26 mg/dL 7 - 22 06/18/2017 [facility] ELECTROLYTES Creatinine Lvl 0.88 mg/dL 0.50 - 1.40 06/18/2017 [facility] ELECTROLYTES Glucose Lvl 131 mg/dL 70 - 99 06/18/2017 [facility] ELECTROLYTES eGFR 61 mL/min/1.73m2 06/18/2017 Result Comment: The eGFR is calculated using the CKD-EPI formula. In most young, healthy individuals the eGFR will be >90 mL/min/1.73m2. The eGFR declines with age. An eGFR of 60-89 may be normal in some populations, particularly the elderly, for whom the CKD-EPI formula has not been extensively validated. Use of the eGFR is not recommended in the following populations: Individuals with unstable creatinine concentrations, including patients and those with serious co-morbid conditions. Patients with extremes in muscle mass or diet. The data above are obtained from the National Kidney Disease Education Program (NKDEP) which additionally recommends that when the eGFR is used in patients with extremes of body mass index for purposes of drug dosing, the eGFR should be multiplied by the estimated BMI. [facility] ELECTROLYTES Potassium Lvl 4.1 meq/L 3.5 - 5.1 06/18/2017 [facility] ELECTROLYTES Sodium Lvl 140 meq/L 135 - 145 06/18/2017 [facility] ELECTROLYTES CO2 28 meq/L 24 - 32 06/18/2017 [facility] ELECTROLYTES Chloride Lvl 103 meq/L 95 - 109 06/18/2017 [facility] ELECTROLYTES Calcium Lvl 8.9 mg/dL 8.5 - 10.5 06/18/2017 [facility] HEMATOLOGY Hct 29.1 % 36.0 - 48.0 06/18/2017 [facility] HEMATOLOGY MCV 95.5 fL 80.0 - 98.0 06/18/2017 [facility] HEMATOLOGY MCH 31.6 pg 27.0 - 31.0 06/18/2017 [facility] HEMATOLOGY MCHC 33.1 g/dL 32.0 - 36.0 06/18/2017 [facility] HEMATOLOGY RDW 20.7 % 11.5 - 14.5 06/18/2017 [facility] HEMATOLOGY Platelet 145 K/CMM 133 - 450 06/18/2017 [facility] HEMATOLOGY MPV 6.9 fL 7.4 - 10.4 06/18/2017 [facility] HEMATOLOGY WBC 3.2 K/CMM 3.7 - 10.4 06/18/2017 [facility] HEMATOLOGY RBC 3.05 M/CMM 4.20 - 5.40 06/18/2017 [facility] HEMATOLOGY Hgb 9.6 g/dL 12.0 - 16.0 06/18/2017 [facility] HEMATOLOGY Lymphocytes 33.2 % 20.0 - 40.0 06/18/2017 [facility] HEMATOLOGY Basophils 0.7 % 0.0 - 1.0 06/18/2017 [facility] HEMATOLOGY Monocytes 12.2 % 2.0 - 12.0 06/18/2017 [facility] HEMATOLOGY Segs-Bands # 1.7 K/CMM 1.5 - 8.1 06/18/2017 [facility] HEMATOLOGY Eosinophils 0.9 % 0.0 - 4.0 06/18/2017 [facility] HEMATOLOGY Segs 53.0 % 45.0 - 75.0 06/18/2017 [facility] HEMATOLOGY Lymphocytes # 1.1 K/CMM 1.0 - 5.5 06/18/2017 [facility] HEMATOLOGY Monocytes # 0.4 K/CMM 0.0 - 0.8 06/18/2017 [facility] CHEM PANEL Phosphorus 3.1 mg/dL 2.5 - 4.5 06/17/2017 [facility] CHEM PANEL Magnesium Lvl 2.5 mg/dL 1.8 - 2.4 06/17/2017 [facility] ELECTROLYTES AGAP 12.3 meq/L 10.0 - 20.0 06/17/2017 [facility] ELECTROLYTES eGFR 58 mL/min/1.73m2 06/17/2017 Result Comment: The eGFR is calculated using the CKD-EPI formula. In most young, healthy individuals the eGFR will be >90 mL/min/1.73m2. The eGFR declines with age. An eGFR of 60-89 may be normal in some populations, particularly the elderly, for whom the CKD-EPI formula has not been extensively validated. Use of the eGFR is not recommended in the following populations: Individuals with unstable creatinine concentrations, including patients and those with serious co-morbid conditions. Patients with extremes in muscle mass or diet. The data above are obtained from the National Kidney Disease Education Program (NKDEP) which additionally recommends that when the eGFR is used in patients with extremes of body mass index for purposes of drug dosing, the eGFR should be multiplied by the estimated BMI. [facility] ELECTROLYTES Chloride Lvl 104 meq/L 95 - 109 06/17/2017 [facility] ELECTROLYTES Potassium Lvl 4.3 meq/L 3.5 - 5.1 06/17/2017 [facility] ELECTROLYTES Calcium Lvl 9.2 mg/dL 8.5 - 10.5 06/17/2017 [facility] ELECTROLYTES CO2 28 meq/L 24 - 32 06/17/2017 [facility] ELECTROLYTES Glucose Lvl 122 mg/dL 70 - 99 06/17/2017 [facility] ELECTROLYTES BUN 17 mg/dL 7 - 22 06/17/2017 [facility] ELECTROLYTES Sodium Lvl 140 meq/L 135 - 145 06/17/2017 [facility] ELECTROLYTES Creatinine Lvl 0.92 mg/dL 0.50 - 1.40 06/17/2017 [facility] HEMATOLOGY Lymphocytes # 1.2 K/CMM 1.0 - 5.5 06/17/2017 [facility] HEMATOLOGY Monocytes # 0.3 K/CMM 0.0 - 0.8 06/17/2017 [facility] HEMATOLOGY Lymphocytes 36.8 % 20.0 - 40.0 06/17/2017 [facility] HEMATOLOGY Basophils 0.8 % 0.0 - 1.0 06/17/2017 [facility] HEMATOLOGY Segs-Bands # 1.7 K/CMM 1.5 - 8.1 06/17/2017 [facility] HEMATOLOGY Monocytes 9.7 % 2.0 - 12.0 06/17/2017 [facility] HEMATOLOGY Eosinophils 1.0 % 0.0 - 4.0 06/17/2017 [facility] HEMATOLOGY Segs 51.7 % 45.0 - 75.0 06/17/2017 [facility] HEMATOLOGY MCV 94.0 fL 80.0 - 98.0 06/17/2017 [facility] HEMATOLOGY Hct 28.5 % 36.0 - 48.0 06/17/2017 [facility] HEMATOLOGY MCH 31.0 pg 27.0 - 31.0 06/17/2017 [facility] HEMATOLOGY RDW 20.4 % 11.5 - 14.5 06/17/2017 [facility] HEMATOLOGY MCHC 33.0 g/dL 32.0 - 36.0 06/17/2017 [facility] HEMATOLOGY MPV 6.9 fL 7.4 - 10.4 06/17/2017 [facility] HEMATOLOGY Platelet 148 K/CMM 133 - 450 06/17/2017 [facility] HEMATOLOGY WBC 3.2 K/CMM 3.7 - 10.4 06/17/2017 [facility] HEMATOLOGY Hgb 9.4 g/dL 12.0 - 16.0 06/17/2017 [facility] HEMATOLOGY RBC 3.03 M/CMM 4.20 - 5.40 06/17/2017 [facility] SPECIAL CHEMISTRY Hgb A1C 5.3 % <=5.6 % 06/16/2017 [facility] ANEMIA STUDY Folate Lvl 7.2 ng/mL >=3.0 ng/mL 06/16/2017 [facility] ANEMIA STUDY Ferritin Lvl 322 ng/mL 5 - 204 06/16/2017 [facility] ANEMIA STUDY TRANSFERRIN 272 mg/dL 212 - 360 06/16/2017 [facility] ANEMIA STUDY Vitamin B12 Lvl 224 pg/mL 254 - 1320 06/16/2017 [facility] ANEMIA STUDY UIBC 17 ug/dl 110 - 370 06/16/2017 [facility] ANEMIA STUDY % Satur Fe 95 % 12 - 57 06/16/2017 [facility] ANEMIA STUDY Iron 341 ug/dl 30 - 160 06/16/2017 [facility] ANEMIA STUDY TIBC 358 ug/dl 228 - 428 06/16/2017 [facility] CHEM PANEL Magnesium Lvl 2.4 mg/dL 1.8 - 2.4 06/16/2017 [facility] CHEM PANEL Phosphorus 2.3 mg/dL 2.5 - 4.5 06/16/2017 [facility] CHEM PANEL eGFR 60 mL/min/1.73m2 06/16/2017 Result Comment: The eGFR is calculated using the CKD-EPI formula. In most young, healthy individuals the eGFR will be >90 mL/min/1.73m2. The eGFR declines with age. An eGFR of 60-89 may be normal in some populations, particularly the elderly, for whom the CKD-EPI formula has not been extensively validated. Use of the eGFR is not recommended in the following populations: Individuals with unstable creatinine concentrations, including patients and those with serious co-morbid conditions. Patients with extremes in muscle mass or diet. The data above are obtained from the National Kidney Disease Education Program (NKDEP) which additionally recommends that when the eGFR is used in patients with extremes of body mass index for purposes of drug dosing, the eGFR should be multiplied by the estimated BMI. [facility] CHEM PANEL CO2 32 meq/L 24 - 32 06/16/2017 [facility] CHEM PANEL Chloride Lvl 103 meq/L 95 - 109 06/16/2017 [facility] CHEM PANEL Calcium Lvl 9.6 mg/dL 8.5 - 10.5 06/16/2017 [facility] CHEM PANEL BUN 16 mg/dL 7 - 22 06/16/2017 [facility] CHEM PANEL Glucose Lvl 173 mg/dL 70 - 99 06/16/2017 [facility] CHEM PANEL Creatinine Lvl 0.89 mg/dL 0.50 - 1.40 06/16/2017 [facility] CHEM PANEL Sodium Lvl 140 meq/L 135 - 145 06/16/2017 [facility] CHEM PANEL Potassium Lvl 3.9 meq/L 3.5 - 5.1 06/16/2017 [facility] CHEM PANEL AGAP 8.9 meq/L 10.0 - 20.0 06/16/2017 [facility] HEMATOLOGY Platelet 160 K/CMM 133 - 450 06/16/2017 [facility] HEMATOLOGY MPV 7.1 fL 7.4 - 10.4 06/16/2017 [facility] HEMATOLOGY RDW 21.6 % 11.5 - 14.5 06/16/2017 [facility] HEMATOLOGY Hgb 10.7 g/dL 12.0 - 16.0 06/16/2017 [facility] HEMATOLOGY Hct 32.7 % 36.0 - 48.0 06/16/2017 [facility] HEMATOLOGY MCV 94.7 fL 80.0 - 98.0 06/16/2017 [facility] HEMATOLOGY MCH 31.0 pg 27.0 - 31.0 06/16/2017 [facility] HEMATOLOGY MCHC 32.7 g/dL 32.0 - 36.0 06/16/2017 [facility] HEMATOLOGY WBC 3.4 K/CMM 3.7 - 10.4 06/16/2017 [facility] HEMATOLOGY RBC 3.46 M/CMM 4.20 - 5.40 06/16/2017 [facility] HEMATOLOGY Segs 68.7 % 45.0 - 75.0 06/16/2017 [facility] HEMATOLOGY Lymphocytes 22.3 % 20.0 - 40.0 06/16/2017 [facility] HEMATOLOGY Anisocyte 1+ *ABN* (06/16/17 5:42 AM) None Seen 06/16/2017 [facility] HEMATOLOGY Monocytes 7.4 % 2.0 - 12.0 06/16/2017 [facility] HEMATOLOGY Eosinophils 0.8 % 0.0 - 4.0 06/16/2017 [facility] HEMATOLOGY Basophils 0.8 % 0.0 - 1.0 06/16/2017 [facility] HEMATOLOGY Segs-Bands # 2.3 K/CMM 1.5 - 8.1 06/16/2017 [facility] HEMATOLOGY Lymphocytes # 0.8 K/CMM 1.0 - 5.5 06/16/2017 [facility] HEMATOLOGY Monocytes # 0.3 K/CMM 0.0 - 0.8 06/16/2017 [facility] BLOOD BANK RESULTS ABO/Rh A POS 06/15/2017 [facility] BLOOD BANK RESULTS Antibody Scrn Negative (06/15/17 1:07 AM) 06/15/2017 [facility] HEMATOLOGY Anisocyte 1+ *ABN* (06/15/17 1:07 AM) None Seen 06/15/2017 [facility] PARATHYROID PROFILE Ca Norm WB 1.14 mMol/L 1.05 - 1.25 06/15/2017 [facility] PARATHYROID PROFILE Ca Ion WB 1.16 mMol/L 1.05 - 1.25 06/15/2017 [facility] BLOOD BANK RESULTS RBC product Product available (06/15/17 12:30 AM) 06/15/2017 [facility] BLOOD BANK RESULTS Antibody Scrn Negative (06/14/17 2:22 PM) 06/14/2017 [facility] BLOOD BANK RESULTS ABO/Rh A POS 06/14/2017 [facility] URINE AND STOOL UA Urobilinogen <=1.0 mg/dL 0.1 - 1.0 06/14/2017 [facility] URINE AND STOOL UA Color Ltyellow 06/14/2017 [facility] URINE [facility] STOOL UA WBC 3 /HPF 0 - 5 06/14/2017 [facility] URINE [facility] STOOL UA Sq Epi Occasional /LPF Few /LPF 06/14/2017 [facility] URINE AND STOOL UA Leuk Est Small *ABN* (06/14/17 1:26 PM) Negative 06/14/2017 [facility] URINE AND STOOL UA Bacteria Occasional /HPF None Seen /HPF 06/14/2017 [facility] URINE AND STOOL UA RBC 1 /HPF 0 - 2 06/14/2017 [facility] URINE AND STOOL UA Bili Negative *NA* (06/14/17 1:26 PM) Negative 06/14/2017 [facility] URINE AND STOOL UA Ketones Negative mg/dL Negative mg/dL 06/14/2017 [facility] URINE AND STOOL UA Glucose Negative mg/dL Negative mg/dL 06/14/2017 [facility] URINE AND STOOL UA Protein Negative mg/dL Negative mg/dL 06/14/2017 [facility] URINE AND STOOL UA Nitrite Negative (06/14/17 1:26 PM) Negative 06/14/2017 [facility] URINE AND STOOL UA Blood Small *ABN* (06/14/17 1:26 PM) Negative 06/14/2017 [facility] URINE AND STOOL UA Turbidity Clear (06/14/17 1:26 PM) Clear 06/14/2017 [facility] URINE AND STOOL UA pH 7.0 5.0 - 8.0 06/14/2017 [facility] URINE AND STOOL UA Spec Grav 1.004 <=1.030 06/14/2017 [facility] CARDIAC ENZYMES CK MB Index 2.2 0.0 - 2.5 06/14/2017 [facility] CARDIAC ENZYMES Troponin-I null 0.00 - 0.40 06/14/2017 [facility] CARDIAC ENZYMES BNP 142 pg/mL <=100 pg/mL 06/14/2017 [facility] CARDIAC ENZYMES Total CK 36 unit/L 12 - 191 06/14/2017 [facility] CARDIAC ENZYMES CK MB 0.8 ng/mL 0.5 - 3.6 06/14/2017 [facility] CHEM PANEL Phosphorus 2.9 mg/dL 2.5 - 4.5 06/14/2017 [facility] CHEM PANEL Magnesium Lvl 2.3 mg/dL 1.8 - 2.4 06/14/2017 [facility] CHEM PANEL Total Protein 6.0 g/dL 6.4 - 8.4 06/14/2017 [facility] CHEM PANEL Alk Phos 79 unit/L 39 - 136 06/14/2017 [facility] CHEM PANEL Globulin 2.8 g/dL 2.7 - 4.2 06/14/2017 [facility] CHEM PANEL Bili Total 0.4 mg/dL 0.2 - 1.3 06/14/2017 [facility] CHEM PANEL A/G Ratio 1.1 0.7 - 1.6 06/14/2017 [facility] CHEM PANEL eGFR 55 mL/min/1.73m2 06/14/2017 Result Comment: The eGFR is calculated using the CKD-EPI formula. In most young, healthy individuals the eGFR will be >90 mL/min/1.73m2. The eGFR declines with age. An eGFR of 60-89 may be normal in some populations, particularly the elderly, for whom the CKD-EPI formula has not been extensively validated. Use of the eGFR is not recommended in the following populations: Individuals with unstable creatinine concentrations, including patients and those with serious co-morbid conditions. Patients with extremes in muscle mass or diet. The data above are obtained from the National Kidney Disease Education Program (NKDEP) which additionally recommends that when the eGFR is used in patients with extremes of body mass index for purposes of drug dosing, the eGFR should be multiplied by the estimated BMI. [facility] CHEM PANEL B/C Ratio 15 6 - 25 06/14/2017 [facility] CHEM PANEL Glucose Lvl 159 mg/dL 70 - 99 06/14/2017 [facility] CHEM PANEL BUN 15 mg/dL 7 - 22 06/14/2017 [facility] CHEM PANEL Creatinine Lvl 0.97 mg/dL 0.50 - 1.40 06/14/2017 [facility] CHEM PANEL Calcium Lvl 8.3 mg/dL 8.5 - 10.5 06/14/2017 [facility] CHEM PANEL CO2 30 meq/L 24 - 32 06/14/2017 [facility] CHEM PANEL ALT 18 unit/L 0 - 65 06/14/2017 [facility] CHEM PANEL Albumin Lvl 3.2 g/dL 3.5 - 5.0 06/14/2017 [facility] CHEM PANEL AST 22 unit/L 0 - 37 06/14/2017 [facility] CHEM PANEL AGAP 10.1 meq/L 10.0 - 20.0 06/14/2017 [facility] CHEM PANEL Chloride Lvl 104 meq/L 95 - 109 06/14/2017 [facility] CHEM PANEL Sodium Lvl 140 meq/L 135 - 145 06/14/2017 [facility] CHEM PANEL Potassium Lvl 4.1 meq/L 3.5 - 5.1 06/14/2017 [facility] HEMATOLOGY Monocytes # 0.3 K/CMM 0.0 - 0.8 06/14/2017 [facility] HEMATOLOGY Lymphocytes 27.0 % 20.0 - 40.0 06/14/2017 [facility] HEMATOLOGY Segs 61.5 % 45.0 - 75.0 06/14/2017 [facility] HEMATOLOGY Monocytes 10.2 % 2.0 - 12.0 06/14/2017 [facility] HEMATOLOGY Segs-Bands # 2.0 K/CMM 1.5 - 8.1 06/14/2017 [facility] HEMATOLOGY Lymphocytes # 0.9 K/CMM 1.0 - 5.5 06/14/2017 [facility] HEMATOLOGY Basophils 0.5 % 0.0 - 1.0 06/14/2017 [facility] HEMATOLOGY Eosinophils 0.8 % 0.0 - 4.0 06/14/2017 [facility] PTT 23.2 s 22.9 - 35.8 06/14/2017 [facility] HEMATOLOGY MPV 6.5 fL 7.4 - 10.4 06/14/2017 [facility] HEMATOLOGY RDW 23.2 % 11.5 - 14.5 06/14/2017 [facility] HEMATOLOGY Platelet 133 K/CMM 133 - 450 06/14/2017 [facility] HEMATOLOGY WBC 3.2 K/CMM 3.7 - 10.4 06/14/2017 [facility] HEMATOLOGY RBC 2.41 M/CMM 4.20 - 5.40 06/14/2017 [facility] HEMATOLOGY MCV 96.1 fL 80.0 - 98.0 06/14/2017 [facility] HEMATOLOGY MCHC 32.7 g/dL 32.0 - 36.0 06/14/2017 [facility] MCH 31.4 pg 27.0 - 31.0 06/14/2017 [facility] HEMATOLOGY Hct 23.1 % 36.0 - 48.0 06/14/2017 [facility] HEMATOLOGY Hgb 7.6 g/dL 12.0 - 16.0 06/14/2017 [facility] Brain wo contrast CT Brain wo contrast CT EXAM: CT BRAIN WITHOUT CONTRAST DATE: 06/14/2017 11:24 AM CDT INDICATION: CT dose DLP 980.96 mGy-cm - fall Pt c/o weakness starting days ago. Pt A/Ox4. Unsteady gait. Denies CP, SOB, N/V. ADDITIONAL INFORMATION AND CT DLP: 980.96 mGy-cm. COMPARISON: CT head of 01/05/2017. TECHNIQUE: Routine axial CT images of the brain were obtained. IV contrast: None. FINDINGS: Prominent right parietal scalp swelling. Non-contrast images of the head demonstrate no edema, hemorrhage, mass lesion or other acute intracranial abnormality. Diffuse cerebral atrophy and advanced severe chronic small vessel ischemic change. Stable moderate ventriculomegaly. [place]-white matter distinction is preserved. The ventricles are normal. The basal cisterns and sulci are normal in size. Mild mucosal thickening of the ethmoid air cells. Mild partial opacification of the mastoid air cells. IMPRESSION: 1. Prominent right parietal scalp swelling. No definite acute infarct or intracranial hemorrhage detected. 2. Diffuse cerebral atrophy and advanced severe chronic small vessel ischemic change. If there is further concern for intracranial pathology or acute stroke, MRI of the brain may be performed for complete assessment. SL: [id number] 06/14/2017 - - Read by: Elieser Kaye MD Dictated Date/time: 06/14/17 12:27 Electronically Signed by: Elieser Kaye MD 06/14/17 12:32 FINAL REPORT [facility] Abdomen/Pelvis wo IV contrast CT Abdomen/Pelvis wo IV contrast CT CT ABDOMEN AND PELVIS WITHOUT CONTRAST Clinical Indication: Abdominal pain. Comparison: CT performed with IV contrast 05/15/2017. TECHNIQUE: Helical imaging was performed diaphragm through the symphysis with multiplanar reconstructions. Images reviewed in 3 planes. IV CONTRAST: None. GI CONTRAST: None. DLP: 859 mGy-cm FINDINGS: This examination is limited for the evaluation of solid organs and vascular structures due to lack of intravenous contrast. LOWER CHEST: Prior sternotomy. Metallic stent across the aortic valve. Dense coronary calcification. Attenuation of the myometrium is in excess of cardiac chambers, suggestive of anemia. No active process within either lung base. No pleural fluid. Calcified plaque within the thoracic aorta. LIVER: Normal. GALLBLADDER: Not visualized. No metallic clips. Correlate with surgical history. SPLEEN: Normal appearance of the spleen. PANCREAS: Normal. ADRENALS: Normal appearance of each adrenal. KIDNEYS: Normal appearance of each kidney without evidence of nephrolithiasis, ureterolithiasis, hydronephrosis or perinephric edema. BOWEL, MESENTERY: No evidence of acute bowel pathology. No mesenteric inflammation, adenopathy or mass. Colonic fecal loading suggests a history of constipation. APPENDIX: Not seen. Correlate with surgical history. PERITONEUM: No extraluminal gas or significant free fluid. RETROPERITONEUM: No inflammation, mass or adenopathy. Heavily calcified aortoiliac atherosclerotic plaque is noted. No aneurysm. Incidental phleboliths noted along the right ovarian vein. ABDOMINAL WALL: No significant abnormality. PELVIS: Normal appearance of the urinary bladder. Absent uterus. No adnexal mass. Pseudoaneurysm again noted along the anterior aspect of the right superficial femoral artery immediately beyond its origin with maximum orthogonal measurements of 2.5 x 2 cm, previously 1.8 x 1.5 cm. MUSCULOSKELETAL: Other than degenerative changes, the bones are intact. IMPRESSION: 1. 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 2. Advanced atheromatous changes. Coronary artery disease. 3. CT findings of constipation. SL: [id number] 06/14/2017 - - Read by: Maximo Agudelo MD Dictated Date/time: 06/14/17 12:35 Electronically Signed by: Maximo Agudelo MD 06/14/17 12:46 FINAL REPORT [facility] Chest 1view DX Chest 1view DX Clinical Indication: - cough. Comparison: 05/24/2017. FINDINGS: AP chest radiograph was obtained. MEDIASTINUM: The cardiac silhouette is normal in size. The aorta is unremarkable. Prior median sternotomy and aortic valve replacement. LUNGS: Central pulmonary vascular prominence and increased interstitial opacity bilaterally. No pleural effusion or pneumothorax. OTHER: No acute osseous abnormalities. IMPRESSION: Mild central vascular congestion. SL: [id number] 06/14/2017 - - Read by: Gabino Dozier MD Dictated Date/time: 06/14/17 11:52 Electronically Signed by: Gabino Dozier MD 06/14/17 11:53 FINAL REPORT [facility] CHEM PANEL Phosphorus 2.2 mg/dL 2.5 - 4.5 05/25/2017 [facility] CHEM PANEL Magnesium Lvl 2.4 mg/dL 1.8 - 2.4 05/25/2017 [facility] CHEM PANEL eGFR 51 mL/min/1.73m2 05/25/2017 Result Comment: The eGFR is calculated using the CKD-EPI formula. In most young, healthy individuals the eGFR will be >90 mL/min/1.73m2. The eGFR declines with age. An eGFR of 60-89 may be normal in some populations, particularly the elderly, for whom the CKD-EPI formula has not been extensively validated. Use of the eGFR is not recommended in the following populations: Individuals with unstable creatinine concentrations, including patients and those with serious co-morbid conditions. Patients with extremes in muscle mass or diet. The data above are obtained from the National Kidney Disease Education Program (NKDEP) which additionally recommends that when the eGFR is used in patients with extremes of body mass index for purposes of drug dosing, the eGFR should be multiplied by the estimated BMI. [facility] CHEM PANEL BUN 36 mg/dL 7 - 22 05/25/2017 [facility] CHEM PANEL Creatinine Lvl 1.03 mg/dL 0.50 - 1.40 05/25/2017 [facility] CHEM PANEL Calcium Lvl 8.7 mg/dL 8.5 - 10.5 05/25/2017 [facility] CHEM PANEL CO2 23 meq/L 24 - 32 05/25/2017 [facility] CHEM PANEL AGAP 15.0 meq/L 10.0 - 20.0 05/25/2017 [facility] CHEM PANEL Chloride Lvl 105 meq/L 95 - 109 05/25/2017 [facility] CHEM PANEL Potassium Lvl 4.0 meq/L 3.5 - 5.1 05/25/2017 [facility] CHEM PANEL Sodium Lvl 139 meq/L 135 - 145 05/25/2017 [facility] CHEM PANEL Glucose Lvl 118 mg/dL 70 - 99 05/25/2017 [facility] HEMATOLOGY PTT 38.0 s 22.9 - 35.8 05/25/2017 [facility] HEMATOLOGY PT 14.9 s 12.0 - 14.7 05/25/2017 [facility] HEMATOLOGY INR 1.15 0.85 - 1.17 05/25/2017 [facility] HEMATOLOGY Monocytes 11.0 % 2.0 - 12.0 05/25/2017 [facility] HEMATOLOGY Segs-Bands # 5.2 K/CMM 1.5 - 8.1 05/25/2017 [facility] HEMATOLOGY Basophils 0.3 % 0.0 - 1.0 05/25/2017 [facility] HEMATOLOGY Eosinophils 0.2 % 0.0 - 4.0 05/25/2017 [facility] HEMATOLOGY Anisocyte 1+ *ABN* (05/25/17 12:11 AM) None Seen 05/25/2017 [facility] HEMATOLOGY Monocytes # 0.8 K/CMM 0.0 - 0.8 05/25/2017 [facility] HEMATOLOGY Lymphocytes # 1.1 K/CMM 1.0 - 5.5 05/25/2017 [facility] HEMATOLOGY Segs 73.1 % 45.0 - 75.0 05/25/2017 [facility] HEMATOLOGY Lymphocytes 15.4 % 20.0 - 40.0 05/25/2017 [facility] HEMATOLOGY MCV 86.1 fL 80.0 - 98.0 05/25/2017 [facility] HEMATOLOGY Hgb 9.2 g/dL 12.0 - 16.0 05/25/2017 [facility] HEMATOLOGY Hct 28.2 % 36.0 - 48.0 05/25/2017 [facility] HEMATOLOGY WBC 7.1 K/CMM 3.7 - 10.4 05/25/2017 [facility] HEMATOLOGY RBC 3.28 M/CMM 4.20 - 5.40 05/25/2017 [facility] HEMATOLOGY MPV 7.3 fL 7.4 - 10.4 05/25/2017 [facility] HEMATOLOGY RDW 25.9 % 11.5 - 14.5 05/25/2017 [facility] HEMATOLOGY Platelet 176 K/CMM 133 - 450 05/25/2017 [facility] HEMATOLOGY MCH 28.2 pg 27.0 - 31.0 05/25/2017 [facility] HEMATOLOGY MCHC 32.7 g/dL 32.0 - 36.0 05/25/2017 [facility] PARATHYROID PROFILE Ca Norm WB 1.09 mMol/L 1.05 - 1.25 05/25/2017 [facility] PARATHYROID PROFILE Ca Ion WB 1.07 mMol/L 1.05 - 1.25 05/25/2017 [facility] CHEM PANEL Phosphorus 4.2 mg/dL 2.5 - 4.5 05/24/2017 [facility] CHEM PANEL Magnesium Lvl 1.9 mg/dL 1.8 - 2.4 05/24/2017 [facility] CHEM PANEL eGFR 52 mL/min/1.73m2 05/24/2017 Result Comment: The eGFR is calculated using the CKD-EPI formula. In most young, healthy individuals the eGFR will be >90 mL/min/1.73m2. The eGFR declines with age. An eGFR of 60-89 may be normal in some populations, particularly the elderly, for whom the CKD-EPI formula has not been extensively validated. Use of the eGFR is not recommended in the following populations: Individuals with unstable creatinine concentrations, including patients and those with serious co-morbid conditions. Patients with extremes in muscle mass or diet. The data above are obtained from the National Kidney Disease Education Program (NKDEP) which additionally recommends that when the eGFR is used in patients with extremes of body mass index for purposes of drug dosing, the eGFR should be multiplied by the estimated BMI. [facility] CHEM PANEL Chloride Lvl 104 meq/L 95 - 109 05/24/2017 [facility] CHEM PANEL CO2 23 meq/L 24 - 32 05/24/2017 [facility] CHEM PANEL Calcium Lvl 8.6 mg/dL 8.5 - 10.5 05/24/2017 [facility] CHEM PANEL Potassium Lvl 4.5 meq/L 3.5 - 5.1 05/24/2017 [facility] CHEM PANEL Sodium Lvl 135 meq/L 135 - 145 05/24/2017 [facility] CHEM PANEL BUN 27 mg/dL 7 - 22 05/24/2017 [facility] CHEM PANEL Glucose Lvl 237 mg/dL 70 - 99 05/24/2017 [facility] CHEM PANEL Creatinine Lvl 1.02 mg/dL 0.50 - 1.40 05/24/2017 [facility] CHEM PANEL AGAP 12.5 meq/L 10.0 - 20.0 05/24/2017 [facility] HEMATOLOGY Lymphocytes 7.2 % 20.0 - 40.0 05/24/2017 [facility] HEMATOLOGY Segs 89.1 % 45.0 - 75.0 05/24/2017 [facility] HEMATOLOGY Monocytes 3.1 % 2.0 - 12.0 05/24/2017 [facility] HEMATOLOGY Eosinophils 0.1 % 0.0 - 4.0 05/24/2017 [facility] HEMATOLOGY Anisocyte 1+ *ABN* (05/24/17 1:27 AM) None Seen 05/24/2017 [facility] HEMATOLOGY Basophils 0.5 % 0.0 - 1.0 05/24/2017 [facility] HEMATOLOGY Segs-Bands # 7.9 K/CMM 1.5 - 8.1 05/24/2017 [facility] HEMATOLOGY Lymphocytes # 0.6 K/CMM 1.0 - 5.5 05/24/2017 [facility] HEMATOLOGY Monocytes # 0.3 K/CMM 0.0 - 0.8 05/24/2017 [facility] HEMATOLOGY INR 1.10 0.85 - 1.17 05/24/2017 [facility] HEMATOLOGY PTT 41.6 s 22.9 - 35.8 05/24/2017 [facility] HEMATOLOGY PT 14.4 s 12.0 - 14.7 05/24/2017 [facility] HEMATOLOGY RBC 3.48 M/CMM 4.20 - 5.40 05/24/2017 [facility] HEMATOLOGY WBC 8.9 K/CMM 3.7 - 10.4 05/24/2017 [facility] HEMATOLOGY MCHC 33.1 g/dL 32.0 - 36.0 05/24/2017 [facility] HEMATOLOGY MCV 84.1 fL 80.0 - 98.0 05/24/2017 [facility] HEMATOLOGY Hct 29.3 % 36.0 - 48.0 05/24/2017 [facility] HEMATOLOGY Hgb 9.7 g/dL 12.0 - 16.0 05/24/2017 [facility] HEMATOLOGY MCH 27.8 pg 27.0 - 31.0 05/24/2017 [facility] HEMATOLOGY RDW 24.7 % 11.5 - 14.5 05/24/2017 [facility] HEMATOLOGY MPV 7.1 fL 7.4 - 10.4 05/24/2017 [facility] HEMATOLOGY Platelet 231 K/CMM 133 - 450 05/24/2017 [facility] PARATHYROID PROFILE Ca Ion WB 1.07 mMol/L 1.05 - 1.25 05/24/2017 [facility] PARATHYROID PROFILE Ca Norm WB 1.09 mMol/L 1.05 - 1.25 05/24/2017 [facility] CHEM PANEL Lactic Acid Lvl 0.8 mMol/L 0.5 - 2.2 05/24/2017 [facility] CHEM PANEL Phosphorus 3.6 mg/dL 2.5 - 4.5 05/24/2017 [facility] CHEM PANEL Magnesium Lvl 1.9 mg/dL 1.8 - 2.4 05/24/2017 [facility] CHEM PANEL eGFR 60 mL/min/1.73m2 05/24/2017 Result Comment: The eGFR is calculated using the CKD-EPI formula. In most young, healthy individuals the eGFR will be >90 mL/min/1.73m2. The eGFR declines with age. An eGFR of 60-89 may be normal in some populations, particularly the elderly, for whom the CKD-EPI formula has not been extensively validated. Use of the eGFR is not recommended in the following populations: Individuals with unstable creatinine concentrations, including patients and those with serious co-morbid conditions. Patients with extremes in muscle mass or diet. The data above are obtained from the National Kidney Disease Education Program (NKDEP) which additionally recommends that when the eGFR is used in patients with extremes of body mass index for purposes of drug dosing, the eGFR should be multiplied by the estimated BMI. [facility] CHEM PANEL Glucose Lvl 199 mg/dL 70 - 99 05/24/2017 [facility] CHEM PANEL BUN 22 mg/dL 7 - 22 05/24/2017 [facility] CHEM PANEL Creatinine Lvl 0.90 mg/dL 0.50 - 1.40 05/24/2017 [facility] CHEM PANEL Sodium Lvl 134 meq/L 135 - 145 05/24/2017 [facility] CHEM PANEL Chloride Lvl 103 meq/L 95 - 109 05/24/2017 [facility] CHEM PANEL CO2 24 meq/L 24 - 32 05/24/2017 [facility] CHEM PANEL Potassium Lvl 4.6 meq/L 3.5 - 5.1 05/24/2017 [facility] CHEM PANEL Calcium Lvl 8.8 mg/dL 8.5 - 10.5 05/24/2017 [facility] CHEM PANEL AGAP 11.6 meq/L 10.0 - 20.0 05/24/2017 [facility] HEMATOLOGY INR 1.09 0.85 - 1.17 05/24/2017 [facility] HEMATOLOGY PTT 24.9 s 22.9 - 35.8 05/24/2017 [facility] HEMATOLOGY PT 14.3 s 12.0 - 14.7 05/24/2017 [facility] PARATHYROID PROFILE Ca Norm WB 1.16 mMol/L 1.05 - 1.25 05/24/2017 [facility] PARATHYROID PROFILE Ca Ion WB 1.16 mMol/L 1.05 - 1.25 05/24/2017 [facility] Chest 1view DX Chest 1view DX EXAM: XR CHEST 1 VIEW DATE: 05/24/2017 at 0008 hours INDICATION: Heart failure - s/p TAVR COMPARISON: Chest x-ray on 05/14/2017, chest CTA on 05/15/2017 TECHNIQUE: AP chest FINDINGS: Lines, tubes and hardware: Median sternotomy wires are redemonstrated, as well as mediastinal surgical clips. There has been interval transcatheter aortic valve replacement. Lungs and pleura: Minimal prominence of interstitial markings. No discrete pulmonary or pleural based abnormality is identified. Pulmonary vascularity is normal. Heart and mediastinum: The heart size is normal for technique. The mediastinal contours are normal. Bones: No acute bony abnormality is identified. IMPRESSION: Status post TAVR. No radiographic evidence of acute pulmonary abnormality. 05/24/2017 - - This report was dictated by a Marshmallow Runner/Fellow. I have personally reviewed the images as well as the Resident's interpretation and agree with the findings. Read by: Monserrat Alan MD Resident: Monserrat Alan MD Dictated Date/time: 05/24/17 09:15 Electronically Signed by: Cr Skinner MD 05/24/17 11:37 FINAL REPORT [facility] CHEM PANEL Globulin 3.1 g/dL 2.7 - 4.2 05/23/2017 [facility] CHEM PANEL A/G Ratio 1.0 0.7 - 1.6 05/23/2017 [facility] CHEM PANEL Bili Indirect 0.5 mg/dL 0.0 - 1.0 05/23/2017 [facility] CHEM PANEL Bili Total 0.7 mg/dL 0.2 - 1.3 05/23/2017 [facility] CHEM PANEL Bili Direct 0.2 mg/dL 0.0 - 0.3 05/23/2017 [facility] CHEM PANEL Albumin Lvl 3.0 g/dL 3.5 - 5.0 05/23/2017 [facility] CHEM PANEL ALT 25 unit/L 0 - 65 05/23/2017 [facility] CHEM PANEL Total Protein 6.1 g/dL 6.4 - 8.4 05/23/2017 [facility] CHEM PANEL AST 21 unit/L 0 - 37 05/23/2017 [facility] CHEM PANEL Alk Phos 72 unit/L 39 - 136 05/23/2017 [facility] HEMATOLOGY MCH 28.0 pg 27.0 - 31.0 05/23/2017 [facility] HEMATOLOGY MCV 82.8 fL 80.0 - 98.0 05/23/2017 [facility] HEMATOLOGY MPV 7.3 fL 7.4 - 10.4 05/23/2017 [facility] HEMATOLOGY Hgb 11.0 g/dL 12.0 - 16.0 05/23/2017 [facility] HEMATOLOGY Hct 32.5 % 36.0 - 48.0 05/23/2017 [facility] HEMATOLOGY RBC 3.93 M/CMM 4.20 - 5.40 05/23/2017 [facility] HEMATOLOGY Platelet 273 K/CMM 133 - 450 05/23/2017 [facility] HEMATOLOGY RDW 24.1 % 11.5 - 14.5 05/23/2017 [facility] HEMATOLOGY MCHC 33.8 g/dL 32.0 - 36.0 05/23/2017 [facility] HEMATOLOGY WBC 6.9 K/CMM 3.7 - 10.4 05/23/2017 [facility] HEMATOLOGY Anisocyte 1+ *ABN* (05/23/17 2:20 AM) None Seen 05/23/2017 [facility] HEMATOLOGY Monocytes # 0.7 K/CMM 0.0 - 0.8 05/23/2017 [facility] HEMATOLOGY Lymphocytes # 1.6 K/CMM 1.0 - 5.5 05/23/2017 [facility] HEMATOLOGY Segs-Bands # 4.4 K/CMM 1.5 - 8.1 05/23/2017 [facility] HEMATOLOGY Basophils 1.0 % 0.0 - 1.0 05/23/2017 [facility] HEMATOLOGY Eosinophils 0.6 % 0.0 - 4.0 05/23/2017 [facility] HEMATOLOGY Monocytes 10.6 % 2.0 - 12.0 05/23/2017 [facility] HEMATOLOGY Lymphocytes 23.9 % 20.0 - 40.0 05/23/2017 [facility] HEMATOLOGY Basophils # 0.1 K/CMM 0.0 - 0.2 05/23/2017 [facility] HEMATOLOGY Segs 63.9 % 45.0 - 75.0 05/23/2017 [facility] TOXICOLOGY Vanco Tr TND 0030 05/23/2017 [facility] TOXICOLOGY Vanco Tr 3.7 ug/ml 05/23/2017 [facility] BLOOD BANK RESULTS RBC product Product available (05/22/17 8:23 AM) 05/22/2017 [facility] BLOOD BANK RESULTS RBC product Product available (05/22/17 8:00 AM) 05/22/2017 [facility] BLOOD BANK RESULTS FFP product Product available (05/22/17 7:59 AM) 05/22/2017 [facility] BLOOD BANK RESULTS RBC product Product available (05/22/17 7:59 AM) 05/22/2017 [facility] BLOOD BANK RESULTS Antibody Scrn Negative (05/21/17 12:45 AM) 05/21/2017 [facility] BLOOD BANK RESULTS ABO/Rh A POS 05/21/2017 [facility] CHEM PANEL ALT 24 unit/L 0 - 65 05/21/2017 [facility] CHEM PANEL Bili Direct 0.2 mg/dL 0.0 - 0.3 05/21/2017 [facility] CHEM PANEL Bili Total 0.4 mg/dL 0.2 - 1.3 05/21/2017 [facility] CHEM PANEL Alk Phos 63 unit/L 39 - 136 05/21/2017 [facility] CHEM PANEL AST 18 unit/L 0 - 37 05/21/2017 [facility] CHEM PANEL Albumin Lvl 2.5 g/dL 3.5 - 5.0 05/21/2017 [facility] CHEM PANEL Total Protein 5.4 g/dL 6.4 - 8.4 05/21/2017 [facility] CHEM PANEL Bili Indirect 0.2 mg/dL 0.0 - 1.0 05/21/2017 [facility] CHEM PANEL A/G Ratio 0.9 0.7 - 1.6 05/21/2017 [facility] CHEM PANEL Globulin 2.9 g/dL 2.7 - 4.2 05/21/2017 [facility] HEMATOLOGY Eosinophils # 0.1 K/CMM 0.0 - 0.5 05/21/2017 [facility] HEMATOLOGY Basophils # 0.1 K/CMM 0.0 - 0.2 05/21/2017 [facility] TOXICOLOGY Vanco Tr TND 0100 05/21/2017 [facility] TOXICOLOGY Vanco Tr 12.0 ug/ml 05/21/2017 [facility] BLOOD BANK RESULTS ABO/Rh A POS 05/19/2017 [facility] BLOOD BANK RESULTS Antibody Scrn Negative (05/19/17 10:49 AM) 05/19/2017 [facility] HEMATOLOGY Microcyte 1+ *ABN* (05/17/17 12:04 AM) None Seen 05/17/2017 [facility] BLOOD BANK RESULTS Antibody Scrn Negative (05/16/17 4:38 AM) 05/16/2017 [facility] BLOOD BANK RESULTS ABO/Rh A POS 05/16/2017 [facility] URINE AND STOOL UA Leuk Est Large *ABN* (05/16/17 2:42 AM) Negative 05/16/2017 [facility] URINE AND STOOL UA WBC 25 /HPF 0 - 5 05/16/2017 [facility] URINE AND STOOL UA [place] Yeast Occasional /HPF None Seen /HPF 05/16/2017 [facility] URINE AND STOOL UA Bacteria Occasional /HPF None Seen /HPF 05/16/2017 [facility] URINE AND STOOL UA RBC 1 /HPF 0 - 2 05/16/2017 [facility] URINE AND STOOL UA Urobilinogen <=1.0 mg/dL 0.1 - 1.0 05/16/2017 [facility] URINE AND STOOL Micro? Performed *NA* (05/16/17 2:42 AM) 05/16/2017 [facility] URINE AND STOOL UA Trans Epi RARE <=0 05/16/2017 [facility] URINE AND STOOL UA Sq Epi RARE 05/16/2017 [facility] URINE AND STOOL UA Nitrite Negative (05/16/17 2:42 AM) Negative 05/16/2017 [facility] URINE AND STOOL UA Bili Negative *NA* (05/16/17 2:42 AM) Negative 05/16/2017 [facility] URINE AND STOOL UA Blood Negative (05/16/17 2:42 AM) Negative 05/16/2017 [facility] URINE AND STOOL UA pH 6.5 5.0 - 8.0 05/16/2017 [facility] URINE AND STOOL UA Spec Grav 1.014 <=1.030 05/16/2017 [facility] URINE AND STOOL UA Turbidity Clear (05/16/17 2:42 AM) Clear 05/16/2017 [facility] URINE AND STOOL UA Protein Negative mg/dL Negative mg/dL 05/16/2017 [facility] URINE AND STOOL UA Ketones Negative mg/dL Negative mg/dL 05/16/2017 [facility] URINE AND STOOL UA Glucose 30 mg/dL Negative mg/dL 05/16/2017 [facility] URINE AND STOOL UA Color Light Yellow *NA* (05/16/17 2:42 AM) Yellow 05/16/2017 [facility] Heart/coronary art TAVR CTA Heart/coronary art TAVR CTA EXAM: CARDIAC COMPUTED TOMOGRAPHY ANGIOGRAPHY DATE: May 15, 2017 INDICATION: Aortic stenosis. COMPARISON: None TECHNIQUE: Contrast imaging was performed on a [employer] Aqu[employer] [address] scanner utilizing a single breath hold. Retrospective ECG gating was performed. Images were reformatted at 0.5 mm intervals and sent to an independent workstation for interpretation. 90 ml of Visipaque 320 IV contrast was delivered via an 18 gauge IV catheter utilizing a power injector at 5 cc/sec and followed by 50 cc of normal saline bolus as a chaser. OVERALL STUDY QUALITY: Good FINDINGS: Aortic valve: Trileaflet, heavily calcified, with calcifications involving predominantly the noncoronary cusp. Coronary Arteries: This patient has a right dominant system with the origin of the coronary arteries being normal. Left main: Normal caliber vessel, relatively free of atheroma in its proximal aspect, giving rise to the LAD, left circumflex, and a relatively large ramus intermedius. There is calcification extending from the distal aspect of the left main vessel into the proximal segments of the ostium of all 3 branches resulting in a flow-limiting stenoses. LAD: Normal caliber vessel, with extensive calcified atheroma involving the proximal and mid segments resulting in total occlusion of the vessel. The midsegment of the vessel is not seen but reconstitutes after the insertion of the EDWARDS graft. The distal segment of the vessel is relatively small in caliber, and free of atheroma. LCx: Normal caliber probably nondominant vessel, with extensive calcified atheroma of the proximal and mid segments, resulting in a total occlusion. There is a relatively small obtuse marginal branch which reconstitutes after the insertion of an SVG graft. The anastomosis of the SVG graft and the vessel distal to it are patent, without any significant atheroma. RCA: Large caliber vessel, dominant, containing the extensive calcified atheroma of the proximal segment, resulting in less than 50% stenosis. The midsegment of the vessel is poorly seen in this study secondary to motion artifact in the presence of a relatively high heart rate. The distal segment of the vessel is relatively free of atheroma and bifurcates normally into the PDA and posterolateral branches which also relatively free of atheroma. Bypass Grafts: Only the very distal segment of the EDWARDS to the LAD and the SVG to the OM identified in this study and are both free of atheroma, including their anastomoses. Myocardium Appearance \\T\\ Function: Left ventricle is normal in size and systolic function. There is mild concentric hypertrophy. Ejection Fraction: 67% RIU=236 cc ESV=34 cc SV=71 cc Lung bui to the extent visualized in limited study: Please see radiologist interpretation for extracardiac findings. IMPRESSION: Aortic valve disease. Coronary artery disease status post coronary bypass graft surgery, with occlusion of the mid LAD and mid circumflex arteries, and patent EDWARDS to LAD, and SVG to OM. Correlation with invasive coronary angiography suggested as not all the segments of the coronary arteries and grafts could be visualized in their entirety in this study. 05/15/2017 - - Read by: Gavin Campoverde MD Dictated Date/time: 05/15/17 09:10 Electronically Signed by: Gavin Campoverde MD 05/15/17 09:38 FINAL REPORT [facility] Chest/Abd/Pelvis TAVR CTA Chest/Abd/Pelvis TAVR CTA EXAM: CTA CHEST WITH AND WITHOUT CONTRAST EXAM: CTA ABDOMEN AND PELVIS WITH AND WITHOUT CONTRAST DATE: 05/15/2017 7:00 AM CDT INDICATION: - TAVR workup ADDITIONAL INFORMATION: None. COMPARISON: CT of the chest abdomen and pelvis without contrast 09/22/2013. TECHNIQUE: Volumetric CT acquisition of the chest, abdomen and pelvis during precontrast, arterial and venous phases. Axial, coronal and sagittal reconstructions. MIP reformats are created at the acquisition workstation. FINDINGS: Aorta and proximal branches: There is no evidence of intramural or periaortic hematoma. The innominate, proximal subclavian, and common carotid arteries are normal in branching order and size. The celiac trunk, SMA, and HI are patent. Single renal arteries are present bilaterally both of which are patent. The infrarenal abdominal aorta is within normal limits. The iliac vessels and proximal femoral arteries are normal. 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 The 1st one measures 1.2 x 1.7 cm and the 2nd which is located about 2 cm inferiorly measures some 1.0 x 1.2 cm. There is an associated hematoma at the right groin. Left pelvis: 0.9 cm at the mid left common iliac 0.6 cm at the left external iliac artery 0.6 cm left femoral artery at the level of the femoral head Lines/tubes: None. Heart and mediastinum: The thyroid gland is normal. No mediastinal, hilar or axillary lymphadenopathy is seen. There is calcification of the aortic valve and coronary artery calcifications. There is cardiomegaly. Pleura: The pleural spaces are clear. Lungs and Airways: The lungs and airways are normal with no focal abnormality demonstrated. ABDOMEN/PELVIS: Hepatobiliary: No focal hepatic lesions. No biliary ductal dilatation. The gallbladder is absent. Spleen: No splenomegaly. Pancreas: No focal masses or ductal dilatation. Adrenals: No adrenal nodules. Kidneys/Ureters: No hydronephrosis, stones, or solid mass lesions. There are multiple small hypodense renal lesions suggestive of cysts. Pelvic Organs/Bladder: The uterus is absent. There is a small amount of air in the urinary bladder. Peritoneum/Retroperitoneum: No free air or fluid. Lymph nodes: No lymphadenopathy. Vessels: Unremarkable. Patent main portal vein measuring up to 1.1 cm. GastrointestinaI Tract: No distention. BONES AND SOFT TISSUE: There is a stimulation device in the subcutaneous tissues of the right gluteal area with an electrode extending into the right sacral area. IMPRESSION: 1. Atherosclerotic disease of the aorta without aneurysmal dilatation or dissection. 2. Calcification of the aortic valve and coronary artery calcifications. For further details please see dedicated cardiac CTA. 3. There are 2 small right groin pseudoaneurysms which most likely originate from the SFA. This is most likely the result of a post catheterization procedure. 4. Small amount of air in the urinary bladder. Please correlate with history of recent Lang placement. 5. Stimulation devise in the subcutaneous tissues of the right gluteal area with an electrode extending into the right sacral area. The results were communicated to Dr. Roque on 05/15/2017 at 11:30 AM. 05/15/2017 - - Read by: Sarah Aranda MD Dictated Date/time: 05/15/17 09:31 Electronically Signed by: Sarah Aranda MD 05/15/17 11:34 FINAL REPORT [facility] HEMATOLOGY Microcyte 1+ *ABN* (05/15/17 12:53 AM) None Seen 05/15/2017 [facility] URINE AND STOOL UA Urobilinogen <=1.0 mg/dL 0.1 - 1.0 05/14/2017 [facility] URINE AND STOOL UA Bili Negative *NA* (05/14/17 6:31 PM) Negative 05/14/2017 [facility] URINE AND STOOL UA Blood Negative (05/14/17 6:31 PM) Negative 05/14/2017 [facility] URINE AND STOOL UA Nitrite Negative (05/14/17 6:31 PM) Negative 05/14/2017 [facility] URINE AND STOOL UA Leuk Est Large *ABN* (05/14/17 6:31 PM) Negative 05/14/2017 [facility] URINE AND STOOL UA Sq Epi Occasional /LPF Few /LPF 05/14/2017 [facility] URINE AND STOOL UA WBC 33 /HPF 0 - 5 05/14/2017 [facility] URINE AND STOOL UA RBC 7 /HPF 0 - 2 05/14/2017 [facility] URINE AND STOOL UA Bacteria Moderate /HPF None Seen /HPF 05/14/2017 [facility] URINE AND STOOL UA Mucus Few /LPF None Seen /LPF 05/14/2017 [facility] URINE AND STOOL UA pH 5.5 5.0 - 8.0 05/14/2017 [facility] URINE AND STOOL UA Ketones Negative mg/dL Negative mg/dL 05/14/2017 [facility] URINE AND STOOL UA Protein Negative mg/dL Negative mg/dL 05/14/2017 [facility] URINE AND STOOL UA Glucose Negative mg/dL Negative mg/dL 05/14/2017 [facility] URINE AND STOOL UA Spec Grav 1.013 <=1.030 05/14/2017 [facility] URINE AND STOOL UA Turbidity Clear (05/14/17 6:31 PM) Clear 05/14/2017 [facility] URINE AND STOOL UA Color Yellow *NA* (05/14/17 6:31 PM) Yellow 05/14/2017 [facility] ANEMIA STUDY % Satur Fe 28 % 12 - 57 05/14/2017 [facility] ANEMIA STUDY UIBC 255 ug/dl 110 - 370 05/14/2017 [facility] ANEMIA STUDY TIBC 353 ug/dl 228 - 428 05/14/2017 [facility] ANEMIA STUDY Iron 98 ug/dl 30 - 160 05/14/2017 [facility] ANEMIA STUDY RBC Folate 942 ng/mL 280 - 791 05/14/2017 [facility] ANEMIA STUDY Vitamin B12 Lvl 193 pg/mL 254 - 1320 05/14/2017 [facility] ANEMIA STUDY Folate Lvl 5.7 ng/mL >=3.0 ng/mL 05/14/2017 [facility] ANEMIA STUDY Ferritin Lvl 324 ng/mL 5 - 204 05/14/2017 [facility] HEMATOLOGY Retic Auto 4.0 % 0.5 - 1.5 05/14/2017 [facility] HEMATOLOGY PB Smear Path Peripheral blood smear shows hypochromic microcytic anemia with anisopoikilocytosis, a few elliptocytes, moderate polychromasia.Impression: findings are most consistent with iron deficiency anemia with partial response to iron treatment. Clinical correlation is suggested.CPT: 29561 05/14/2017 [facility] IMMUNOLOGY Homocyst Tot 14.3 umol/L 3.7 - 13.9 05/14/2017 [facility] CHEM PANEL A/G Ratio 1.0 0.7 - 1.6 05/14/2017 [facility] CHEM PANEL Globulin 3.0 g/dL 2.7 - 4.2 05/14/2017 [facility] CHEM PANEL B/C Ratio 33 6 - 25 05/14/2017 [facility] CHEM PANEL Bili Total 0.3 mg/dL 0.2 - 1.3 05/14/2017 [facility] CHEM PANEL Alk Phos 84 unit/L 39 - 136 05/14/2017 [facility] CHEM PANEL Total Protein 6.0 g/dL 6.4 - 8.4 05/14/2017 [facility] CHEM PANEL AST 36 unit/L 0 - 37 05/14/2017 [facility] CHEM PANEL ALT 30 unit/L 0 - 65 05/14/2017 [facility] CHEM PANEL Albumin Lvl 3.0 g/dL 3.5 - 5.0 05/14/2017 [facility] HEMATOLOGY Microcyte 1+ *ABN* (05/14/17 9:08 AM) None Seen 05/14/2017 [facility] HEMATOLOGY Hypochrom 1+ (05/14/17 9:08 AM) None Seen 05/14/2017 [facility] LIPIDS VLDL 26 05/14/2017 [facility] LIPIDS LDL (Calculated) 35 mg/dL <=99 mg/dL 05/14/2017 [facility] LIPIDS Chol 123 mg/dL <=199 mg/dL 05/14/2017 [facility] LIPIDS Trig 132 mg/dL <=149 mg/dL 05/14/2017 [facility] LIPIDS HDL 62 mg/dL >=61 mg/dL 05/14/2017 [facility] LIPIDS CHD Risk 1.98 3.90 - 5.80 05/14/2017 [facility] Chest 1view DX Chest 1view DX EXAM: XR CHEST 1 VIEW DATE: 05/14/2017 INDICATION: Heart failure - ?CHF exacerbation . Comparison is made with 05/08/2017 FINDINGS: Cardiomediastinal silhouette and sternotomy wires are unchanged. Costophrenic sulci are sharp. Lung volumes are low. The lungs are clear. IMPRESSION: No significant interval change when compared to prior radiograph. 05/14/2017 - - Read by: Olena Mcdaniels MD Dictated Date/time: 05/14/17 09:25 Electronically Signed by: Olena Mcdaniels MD 05/14/17 09:25 FINAL REPORT [facility] ELECTROLYTES AGAP 12.2 meq/L 10.0 - 20.0 05/13/2017 [facility] ELECTROLYTES Sodium Lvl 142 meq/L 135 - 145 05/13/2017 [facility] ELECTROLYTES Albumin Lvl 3.0 g/dL 3.5 - 5.0 05/13/2017 [facility] ELECTROLYTES Calcium Lvl 8.4 mg/dL 8.5 - 10.5 05/13/2017 [facility] ELECTROLYTES CO2 33 meq/L 24 - 32 05/13/2017 [facility] ELECTROLYTES Chloride Lvl 101 meq/L 95 - 109 05/13/2017 [facility] ELECTROLYTES Potassium Lvl 4.2 meq/L 3.5 - 5.1 05/13/2017 [facility] ELECTROLYTES Creatinine Lvl 0.84 mg/dL 0.50 - 1.40 05/13/2017 [facility] ELECTROLYTES Phosphorus 3.0 mg/dL 2.5 - 4.5 05/13/2017 [facility] ELECTROLYTES BUN 23 mg/dL 7 - 22 05/13/2017 [facility] ELECTROLYTES Glucose Lvl 114 mg/dL 70 - 99 05/13/2017 [facility] ELECTROLYTES eGFR 65 mL/min/1.73m2 05/13/2017 Result Comment: The eGFR is calculated using the CKD-EPI formula. In most young, healthy individuals the eGFR will be >90 mL/min/1.73m2. The eGFR declines with age. An eGFR of 60-89 may be normal in some populations, particularly the elderly, for whom the CKD-EPI formula has not been extensively validated. Use of the eGFR is not recommended in the following populations: Individuals with unstable creatinine concentrations, including patients and those with serious co-morbid conditions. Patients with extremes in muscle mass or diet. The data above are obtained from the National Kidney Disease Education Program (NKDEP) which additionally recommends that when the eGFR is used in patients with extremes of body mass index for purposes of drug dosing, the eGFR should be multiplied by the estimated BMI. [facility] HEMATOLOGY MPV 7.2 fL 7.4 - 10.4 05/13/2017 [facility] HEMATOLOGY Platelet 198 K/CMM 133 - 450 05/13/2017 [facility] HEMATOLOGY WBC 3.6 K/CMM 3.7 - 10.4 05/13/2017 [facility] RBC 3.93 M/CMM 4.20 - 5.40 05/13/2017 [facility] Hgb 9.3 g/dL 12.0 - 16.0 05/13/2017 [facility] MCHC 31.4 g/dL 32.0 - 36.0 05/13/2017 [facility] RDW 21.1 % 11.5 - 14.5 05/13/2017 [facility] MCV 75.2 fL 80.0 - 98.0 05/13/2017 [facility] MCH 23.6 pg 27.0 - 31.0 05/13/2017 [facility] Hct 29.6 % 36.0 - 48.0 05/13/2017 [facility] Segs 51.3 % 45.0 - 75.0 05/13/2017 [facility] Monocytes # 0.3 K/CMM 0.0 - 0.8 05/13/2017 [facility] Monocytes 9.1 % 2.0 - 12.0 05/13/2017 [facility] Basophils 0.4 % 0.0 - 1.0 05/13/2017 [facility] Microcyte 1+ *ABN* (05/13/17 3:59 AM) None Seen 05/13/2017 [facility] Eosinophils 1.1 % 0.0 - 4.0 05/13/2017 [facility] Lymphocytes # 1.4 K/CMM 1.0 - 5.5 05/13/2017 [facility] Segs-Bands # 1.9 K/CMM 1.5 - 8.1 05/13/2017 [facility] Lymphocytes 38.1 % 20.0 - 40.0 05/13/2017 [facility] URINE AND STOOL Occult Bld Stl Positive *ABN* (05/12/17 6:35 PM) Negative 05/12/2017 [facility] ELECTROLYTES AGAP 7.4 meq/L 10.0 - 20.0 05/12/2017 [facility] ELECTROLYTES Phosphorus 2.7 mg/dL 2.5 - 4.5 05/12/2017 [facility] ELECTROLYTES eGFR 58 mL/min/1.73m2 05/12/2017 Result Comment: The eGFR is calculated using the CKD-EPI formula. In most young, healthy individuals the eGFR will be >90 mL/min/1.73m2. The eGFR declines with age. An eGFR of 60-89 may be normal in some populations, particularly the elderly, for whom the CKD-EPI formula has not been extensively validated. Use of the eGFR is not recommended in the following populations: Individuals with unstable creatinine concentrations, including patients and those with serious co-morbid conditions. Patients with extremes in muscle mass or diet. The data above are obtained from the National Kidney Disease Education Program (NKDEP) which additionally recommends that when the eGFR is used in patients with extremes of body mass index for purposes of drug dosing, the eGFR should be multiplied by the estimated BMI. [facility] ELECTROLYTES Albumin Lvl 2.1 g/dL 3.5 - 5.0 05/12/2017 [facility] ELECTROLYTES Sodium Lvl 136 meq/L 135 - 145 05/12/2017 [facility] ELECTROLYTES Calcium Lvl 8.5 mg/dL 8.5 - 10.5 05/12/2017 [facility] ELECTROLYTES Chloride Lvl 98 meq/L 95 - 109 05/12/2017 [facility] ELECTROLYTES Potassium Lvl 4.4 meq/L 3.5 - 5.1 05/12/2017 [facility] ELECTROLYTES CO2 35 meq/L 24 - 32 05/12/2017 [facility] ELECTROLYTES Creatinine Lvl 0.93 mg/dL 0.50 - 1.40 05/12/2017 [facility] ELECTROLYTES BUN 21 mg/dL 7 - 22 05/12/2017 [facility] ELECTROLYTES Glucose Lvl 124 mg/dL 70 - 99 05/12/2017 [facility] Microcyte 1+ *ABN* (05/12/17 3:56 AM) None Seen 05/12/2017 [facility] Lymphocytes # 1.4 K/CMM 1.0 - 5.5 05/12/2017 [facility] Monocytes # 0.5 K/CMM 0.0 - 0.8 05/12/2017 [facility] Basophils 0.7 % 0.0 - 1.0 05/12/2017 [facility] Segs-Bands # 2.0 K/CMM 1.5 - 8.1 05/12/2017 [facility] Lymphocytes 35.0 % 20.0 - 40.0 05/12/2017 [facility] Monocytes 11.7 % 2.0 - 12.0 05/12/2017 [facility] Eosinophils 1.0 % 0.0 - 4.0 05/12/2017 [facility] Segs 51.6 % 45.0 - 75.0 05/12/2017 [facility] MPV 7.2 fL 7.4 - 10.4 05/12/2017 [facility] Platelet 185 K/CMM 133 - 450 05/12/2017 [facility] RDW 20.6 % 11.5 - 14.5 05/12/2017 [facility] MCHC 31.6 g/dL 32.0 - 36.0 05/12/2017 [facility] MCV 74.3 fL 80.0 - 98.0 05/12/2017 [facility] MCH 23.5 pg 27.0 - 31.0 05/12/2017 [facility] Hct 29.2 % 36.0 - 48.0 05/12/2017 [facility] RBC 3.93 M/CMM 4.20 - 5.40 05/12/2017 [facility] Hgb 9.2 g/dL 12.0 - 16.0 05/12/2017 [facility] WBC 3.9 K/CMM 3.7 - 10.4 05/12/2017 [facility] BLOOD BANK RESULTS RBC product Product available 1 (05/11/17 6:00 AM) 05/11/2017 Result Comment: 05/11/2017 02:27 [id number] notified crystal 05/11/2017 02:27 jw [facility] ELECTROLYTES Sodium Lvl 135 meq/L 135 - 145 05/11/2017 [facility] ELECTROLYTES Potassium Lvl 3.5 meq/L 3.5 - 5.1 05/11/2017 [facility] ELECTROLYTES Creatinine Lvl 1.10 mg/dL 0.50 - 1.40 05/11/2017 [facility] ELECTROLYTES BUN 17 mg/dL 7 - 22 05/11/2017 [facility] ELECTROLYTES Glucose Lvl 141 mg/dL 70 - 99 05/11/2017 [facility] ELECTROLYTES eGFR 47 mL/min/1.73m2 05/11/2017 Result Comment: The eGFR is calculated using the CKD-EPI formula. In most young, healthy individuals the eGFR will be >90 mL/min/1.73m2. The eGFR declines with age. An eGFR of 60-89 may be normal in some populations, particularly the elderly, for whom the CKD-EPI formula has not been extensively validated. Use of the eGFR is not recommended in the following populations: Individuals with unstable creatinine concentrations, including patients and those with serious co-morbid conditions. Patients with extremes in muscle mass or diet. The data above are obtained from the National Kidney Disease Education Program (NKDEP) which additionally recommends that when the eGFR is used in patients with extremes of body mass index for purposes of drug dosing, the eGFR should be multiplied by the estimated BMI. [facility] ELECTROLYTES Calcium Lvl 9.1 mg/dL 8.5 - 10.5 05/11/2017 [facility] ELECTROLYTES CO2 34 meq/L 24 - 32 05/11/2017 [facility] ELECTROLYTES Chloride Lvl 94 meq/L 95 - 109 05/11/2017 [facility] ELECTROLYTES AGAP 10.5 meq/L 10.0 - 20.0 05/11/2017 [facility] HEMATOLOGY WBC 4.9 K/CMM 3.7 - 10.4 05/11/2017 [facility] HEMATOLOGY RBC 3.93 M/CMM 4.20 - 5.40 05/11/2017 [facility] HEMATOLOGY Hct 28.4 % 36.0 - 48.0 05/11/2017 [facility] Hgb 8.9 g/dL 12.0 - 16.0 05/11/2017 [facility] MCV 72.3 fL 80.0 - 98.0 05/11/2017 [facility] MCH 22.5 pg 27.0 - 31.0 05/11/2017 [facility] RDW 20.3 % 11.5 - 14.5 05/11/2017 [facility] MCHC 31.2 g/dL 32.0 - 36.0 05/11/2017 [facility] MPV 7.5 fL 7.4 - 10.4 05/11/2017 [facility] Platelet 198 K/CMM 133 - 450 05/11/2017 [facility] LIPIDS CHD Risk 1.61 3.90 - 5.80 05/11/2017 [facility] LIPIDS VLDL 20 05/11/2017 [facility] LIPIDS LDL (Calculated) 32 mg/dL <=99 mg/dL 05/11/2017 [facility] LIPIDS HDL 85 mg/dL >=61 mg/dL 05/11/2017 [facility] LIPIDS Chol 137 mg/dL <=199 mg/dL 05/11/2017 [facility] LIPIDS Trig 102 mg/dL <=149 mg/dL 05/11/2017 [facility] SPECIAL CHEMISTRY Hgb A1C 5.9 % <=5.6 % 05/11/2017 [facility] BLOOD BANK RESULTS RBC product Product available 2 (05/10/17 9:47 AM) 05/10/2017 Result Comment: 05/10/2017 09:51 [id number] called to Asmita Pepe 05/10/2017 09:51 [facility] ANEMIA STUDY % Satur Fe 7 % 12 - 57 05/10/2017 [facility] ANEMIA STUDY UIBC 374 ug/dl 110 - 370 05/10/2017 [facility] ANEMIA STUDY TIBC 404 ug/dl 228 - 428 05/10/2017 [facility] ANEMIA STUDY Iron 30 ug/dl 30 - 160 05/10/2017 [facility] ANEMIA STUDY Ferritin Lvl 28 ng/mL 5 - 204 05/10/2017 [facility] HEMATOLOGY Retic Auto 2.4 % 0.5 - 1.5 05/10/2017 [facility] CARDIAC ENZYMES Troponin-I 0.14 ng/mL 0.00 - 0.40 05/09/2017 [facility] CARDIAC ENZYMES Total CK 118 unit/L 12 - 191 05/09/2017 [facility] CARDIAC ENZYMES CK MB Index 0.8 0.0 - 2.5 05/09/2017 [facility] CARDIAC ENZYMES CK MB 0.9 ng/mL 0.5 - 3.6 05/09/2017 [facility] CHEM PANEL Globulin 3.0 g/dL 2.7 - 4.2 05/09/2017 [facility] CHEM PANEL A/G Ratio 1.1 0.7 - 1.6 05/09/2017 [facility] CHEM PANEL Bili Indirect 0.4 mg/dL 0.0 - 1.0 05/09/2017 [facility] CHEM PANEL Bili Total 0.5 mg/dL 0.2 - 1.3 05/09/2017 [facility] CHEM PANEL Bili Direct 0.1 mg/dL 0.0 - 0.3 05/09/2017 [facility] CHEM PANEL Albumin Lvl 3.3 g/dL 3.5 - 5.0 05/09/2017 [facility] CHEM PANEL Total Protein 6.3 g/dL 6.4 - 8.4 05/09/2017 [facility] CHEM PANEL AST 22 unit/L 0 - 37 05/09/2017 [facility] CHEM PANEL ALT 22 unit/L 0 - 65 05/09/2017 [facility] CHEM PANEL Alk Phos 63 unit/L 39 - 136 05/09/2017 [facility] HEMATOLOGY Lymphocytes # 1.0 K/CMM 1.0 - 5.5 05/09/2017 [facility] HEMATOLOGY Monocytes # 0.6 K/CMM 0.0 - 0.8 05/09/2017 [facility] HEMATOLOGY Monocytes 9.4 % 2.0 - 12.0 05/09/2017 [facility] HEMATOLOGY Segs-Bands # 4.8 K/CMM 1.5 - 8.1 05/09/2017 [facility] HEMATOLOGY Lymphocytes 15.9 % 20.0 - 40.0 05/09/2017 [facility] HEMATOLOGY Basophils 0.8 % 0.0 - 1.0 05/09/2017 [facility] HEMATOLOGY Eosinophils 0.2 % 0.0 - 4.0 05/09/2017 [facility] HEMATOLOGY Basophils # 0.1 K/CMM 0.0 - 0.2 05/09/2017 [facility] HEMATOLOGY Microcyte 1+ *ABN* (05/09/17 7:38 AM) None Seen 05/09/2017 [facility] HEMATOLOGY Segs 73.7 % 45.0 - 75.0 05/09/2017 [facility] LIPIDS Chol 129 mg/dL <=199 mg/dL 05/09/2017 [facility] LIPIDS Trig 71 mg/dL <=149 mg/dL 05/09/2017 [facility] LIPIDS VLDL 14 05/09/2017 [facility] LIPIDS LDL (Calculated) 30 mg/dL <=99 mg/dL 05/09/2017 [facility] LIPIDS HDL 85 mg/dL >=61 mg/dL 05/09/2017 [facility] LIPIDS CHD Risk 1.52 3.90 - 5.80 05/09/2017 [facility] BLOOD BANK RESULTS RBC product Product available 3 (05/09/17 12:57 AM) 05/09/2017 Result Comment: 05/09/2017 01:35 [id number] Notified Clinton [email or web address] 05/09/2017 01:35 hp [facility] BLOOD BANK RESULTS Antibody Scrn Negative (05/09/17 12:37 AM) 05/09/2017 [facility] BLOOD BANK RESULTS ABO/Rh A POS 05/09/2017 [facility] URINE AND STOOL UA Sq Epi None Seen 05/09/2017 [facility] URINE AND STOOL UA Urobilinogen <=1.0 mg/dL 0.1 - 1.0 05/09/2017 [facility] URINE AND STOOL UA Color Ltyellow 05/09/2017 [facility] URINE AND STOOL UA Glucose 150 mg/dL Negative mg/dL 05/09/2017 [facility] URINE AND STOOL UA WBC Cast 3 /LPF <=0 /LPF 05/09/2017 [facility] URINE AND STOOL UA RBC 4 /HPF 0 - 2 05/09/2017 [facility] URINE AND STOOL UA Bacteria Occasional /HPF None Seen /HPF 05/09/2017 [facility] URINE AND STOOL UA Hyal Cast 3 /LPF 0 - 2 05/09/2017 [facility] URINE AND STOOL UA Nitrite Negative (05/09/17 12:10 AM) Negative 05/09/2017 [facility] URINE AND STOOL UA Bili Negative *NA* (05/09/17 12:10 AM) Negative 05/09/2017 [facility] URINE AND STOOL UA Blood Small *ABN* (05/09/17 12:10 AM) Negative 05/09/2017 [facility] URINE AND STOOL UA Leuk Est Moderate *ABN* (05/09/17 12:10 AM) Negative 05/09/2017 [facility] URINE AND STOOL UA WBC 31 /HPF 0 - 5 05/09/2017 [facility] URINE AND STOOL UA Turbidity Slight *ABN* (05/09/17 12:10 AM) Clear 05/09/2017 [facility] URINE AND STOOL UA Ketones 20 mg/dL Negative mg/dL 05/09/2017 [facility] URINE AND STOOL UA Protein 30 mg/dL Negative mg/dL 05/09/2017 [facility] URINE AND STOOL UA Spec Grav 1.013 <=1.030 05/09/2017 [facility] URINE AND STOOL UA pH 5.0 5.0 - 8.0 05/09/2017 [facility] CARDIAC ENZYMES BNP 373 pg/mL <=100 pg/mL 05/09/2017 [facility] CARDIAC ENZYMES CK MB Index 1.1 0.0 - 2.5 05/09/2017 [facility] CARDIAC ENZYMES CK MB 0.6 ng/mL 0.5 - 3.6 05/09/2017 [facility] CARDIAC ENZYMES Troponin-I null 0.00 - 0.40 05/09/2017 [facility] CARDIAC ENZYMES Total CK 56 unit/L 12 - 191 05/09/2017 [facility] CHEM PANEL Total Protein 7.2 g/dL 6.4 - 8.4 05/09/2017 [facility] CHEM PANEL AST 21 unit/L 0 - 37 05/09/2017 [facility] CHEM PANEL ALT 20 unit/L 0 - 65 05/09/2017 [facility] CHEM PANEL Alk Phos 77 unit/L 39 - 136 05/09/2017 [facility] CHEM PANEL Bili Total 0.4 mg/dL 0.2 - 1.3 05/09/2017 [facility] CHEM PANEL Globulin 3.5 g/dL 2.7 - 4.2 05/09/2017 [facility] CHEM PANEL B/C Ratio 15 6 - 25 05/09/2017 [facility] CHEM PANEL A/G Ratio 1.1 0.7 - 1.6 05/09/2017 [facility] HEMATOLOGY Anisocyte 1+ *ABN* (05/08/17 10:40 PM) None Seen 05/09/2017 [facility] Hypochrom 1+ (05/08/17 10:40 PM) None Seen 05/09/2017 [facility] Plt Morph Normal (05/08/17 10:40 PM) 05/09/2017 [facility] Chest 1view DX Chest 1view DX Clinical Indication:81 years Female with - chest pain Comparison: Chest x-ray 12/11/2015 FINDINGS: Lines: None. The single frontal chest radiograph shows normal lung volumes. No interstitial or airspace opacities. No pleural effusion. No pneumothorax. Cardiac silhouette is enlarged, stable. Median sternotomy wires and surgical changes of the mediastinum. Aorta is tortuous and calcified. Pulmonary vasculature is normal. The trachea is midline. There are no acute osseous abnormalities noted. IMPRESSION: No acute cardiopulmonary abnormality. Stable enlargement of the cardiac silhouette. 05/08/2017 - - Read by: Jeffery Glover MD Dictated Date/time: 05/08/17 19:08 Electronically Signed by: Jeffery Glover MD 05/08/17 19:10 FINAL REPORT [facility] Spine cervical wo contrast CT Spine cervical wo contrast CT Clinical Indication: ct dlp 760.83mgycm as - fall Reports fall yesterday and is concerned about hematoma to L side of head, extending to neck. Comparison: None Technique: Multi-detector CT imaging of the cervical spine is performed. Coronal and sagittal reconstructions were obtained. CT Radiation Dose DLP 760.83 mGy-cm FINDINGS: ALIGNMENT AND GENERAL ASSESSMENT: There is normal alignment of the cervical spine. There are no fractures or subluxations. The craniocervical junction is normal. The atlanto-dental alignment appears unremarkable. The posterior elements and spinous processes are unremarkable. The facet joints are unremarkable. The spinolaminar and spinous process alignment are normal. DISK SPACES AND SOFT TISSUES: There is no prevertebral soft tissue swelling. There is no central or foraminal stenosis. Multilevel mild spondylosis with disc osteophyte complexes. MRI is the gold standard to assess for disk disease. VISUALIZED LUNG APICES: The visualized lung apices are unremarkable. CT myelogram or MRI of the cervical spine may be performed, if there is further concern. IMPRESSION: 1. Multilevel spondylosis with ridging disk osteophyte complex's and neural foraminal narrowing. However, no acute fracture. 2. The right internal carotid artery is medial deviated and is in the retropharyngeal region. Caution should be made if a retropharyngeal biopsy is considered in the future. SL: SURENDRA 01/05/2017 - - Read by: Brendon Amaya DO Dictated Date/time: 01/05/17 00:30 Electronically Signed by: Brendon Amaya DO 01/05/17 00:41 FINAL REPORT [facility] Brain wo contrast CT Brain wo contrast CT Clinical Indication: ct dlp 981.84mgycm as - fall Reports fall yesterday and is concerned about hematoma to L side of head, extending to neck. Comparison: 08/13/2012 TECHNIQUE: CT images were obtained from the foramen magnum to the vertex without the use of intravenous contrast on a multidetector CT. Coronal and sagittal reconstructions were obtained. CT radiation dose DLP: 981.84 mGy-cm FINDINGS: BRAIN PARENCHYMA: Age appropriate involutionary changes with mild small vessel ischemic changes. There are otherwise normal nguyen-white interfaces, sulci and gyri. There are no focal mass lesions on this noncontrast head CT. There is no mass effect, midline shift or edema. There are no intra-axial or extra-axial fluid collections, intraventricular or intraparenchymal hemorrhage. The pineal, sellar, brainstem, cerebellum and skull base regions appear unremarkable. Calcification of the wall of the internal carotid artery primarily in the region of the cavernous sinus suggestions atherosclerosis. VENTRICLES: The lateral ventricles, third and fourth ventricles appear unremarkable. The basilar cisterns are normal. ORBITS, MASTOIDS AND PARANASAL SINUSES: The visualized orbits and paranasal sinuses are otherwise unremarkable. The mastoid air cells are unopacified. SKULL: Extracranial soft tissue swelling/hematoma left frontal region. There are no osseous abnormalities. If there is further concern for intracranial pathology or acute stroke, MRI of the brain may be performed for complete assessment. IMPRESSION: 1. Age appropriate involutionary changes with mild small vessel ischemic changes. 2. Extracranial soft tissue swelling/hematoma left frontal region. SL: FABIOLA-PC 01/05/2017 - - Read by: Brendon Amaya DO Dictated Date/time: 01/05/17 00:15 Electronically Signed by: Brendon Amaya DO 01/05/17 00:28 FINAL REPORT [facility] CARDIAC ENZYMES CK MB Index 0.7 0.0 - 2.5 12/12/2015 [facility] CARDIAC ENZYMES Troponin-I null 0.00 - 0.40 12/12/2015 [facility] CARDIAC ENZYMES CK MB 0.5 ng/mL 0.5 - 3.6 12/12/2015 [facility] CARDIAC ENZYMES Total CK 73 unit/L 12 - 191 12/12/2015 [facility] CHEM PANEL eGFR 38 mL/min/1.73m2 12/12/2015 Result Comment: The eGFR is calculated using the CKD-EPI formula. In most young, healthy individuals the eGFR will be >90 mL/min/1.73m2. The eGFR declines with age. An eGFR of 60-89 may be normal in some populations, particularly the elderly, for whom the CKD-EPI formula has not been extensively validated. Use of the eGFR is not recommended in the following populations: Individuals with unstable creatinine concentrations, including patients and those with serious co-morbid conditions. Patients with extremes in muscle mass or diet. The data above are obtained from the National Kidney Disease Education Program (NKDEP) which additionally recommends that when the eGFR is used in patients with extremes of body mass index for purposes of drug dosing, the eGFR should be multiplied by the estimated BMI. [facility] CHEM PANEL A/G Ratio 0.9 0.7 - 1.6 12/12/2015 [facility] CHEM PANEL AGAP 11.9 meq/L 10.0 - 20.0 12/12/2015 [facility] CHEM PANEL Bili Total 0.4 mg/dL 0.2 - 1.3 12/12/2015 [facility] CHEM PANEL Globulin 3.8 g/dL 2.0 - 4.0 12/12/2015 [facility] CHEM PANEL B/C Ratio 17 6 - 25 12/12/2015 [facility] CHEM PANEL Albumin Lvl 3.3 g/dL 3.5 - 5.0 12/12/2015 [facility] CHEM PANEL AST 25 unit/L 0 - 37 12/12/2015 [facility] CHEM PANEL ALT 23 unit/L 0 - 65 12/12/2015 [facility] CHEM PANEL Alk Phos 75 unit/L 39 - 136 12/12/2015 [facility] CHEM PANEL Total Protein 7.1 g/dL 6.4 - 8.4 12/12/2015 [facility] CHEM PANEL Calcium Lvl 9.2 mg/dL 8.5 - 10.5 12/12/2015 [facility] CHEM PANEL Glucose Lvl 181 mg/dL 70 - 99 12/12/2015 [facility] CHEM PANEL Potassium Lvl 4.9 meq/L 3.5 - 5.1 12/12/2015 [facility] CHEM PANEL Sodium Lvl 132 meq/L 135 - 145 12/12/2015 [facility] CHEM PANEL CO2 26 meq/L 24 - 32 12/12/2015 [facility] CHEM PANEL Chloride Lvl 99 meq/L 95 - 109 12/12/2015 [facility] CHEM PANEL Creatinine Lvl 1.31 mg/dL 0.50 - 1.40 12/12/2015 [facility] CHEM PANEL BUN 22 mg/dL 7 - 22 12/12/2015 [facility] HEMATOLOGY Lymphocytes 11.9 % 20.0 - 40.0 12/12/2015 [facility] HEMATOLOGY Segs 80.9 % 45.0 - 75.0 12/12/2015 [facility] HEMATOLOGY Monocytes 6.5 % 2.0 - 12.0 12/12/2015 [facility] HEMATOLOGY Eosinophils 0.2 % 0.0 - 4.0 12/12/2015 [facility] HEMATOLOGY Lymphocytes # 0.5 K/CMM 1.0 - 5.5 12/12/2015 [facility] HEMATOLOGY Basophils 0.5 % 0.0 - 1.0 12/12/2015 [facility] HEMATOLOGY Monocytes # 0.3 K/CMM 0.0 - 0.8 12/12/2015 [facility] HEMATOLOGY Segs-Bands # 3.7 K/CMM 1.5 - 8.1 12/12/2015 [facility] HEMATOLOGY MPV 6.8 fL 7.4 - 10.4 12/12/2015 [facility] HEMATOLOGY MCH 28.1 pg 27.0 - 31.0 12/12/2015 [facility] HEMATOLOGY Platelet 322 K/CMM 133 - 450 12/12/2015 [facility] HEMATOLOGY MCHC 32.5 g/dL 32.0 - 36.0 12/12/2015 [facility] HEMATOLOGY RDW 13.8 % 11.5 - 14.5 12/12/2015 [facility] HEMATOLOGY MCV 86.6 fL 80.0 - 98.0 12/12/2015 [facility] HEMATOLOGY Hct 30.5 % 36.0 - 48.0 12/12/2015 [facility] HEMATOLOGY RBC 3.52 M/CMM 4.20 - 5.40 12/12/2015 [facility] HEMATOLOGY Hgb 9.9 g/dL 12.0 - 16.0 12/12/2015 [facility] HEMATOLOGY WBC 4.6 K/CMM 3.7 - 10.4 12/12/2015 [facility] URINE AND STOOL UA Leuk Est Negative (12/11/15 10:10 PM) Negative 12/12/2015 [facility] URINE AND STOOL UA Sq Epi Occasional /LPF Few /LPF 12/12/2015 [facility] URINE AND STOOL UA WBC null 0 - 5 12/12/2015 [facility] URINE AND STOOL UA Protein Negative mg/dL Negative mg/dL 12/12/2015 [facility] URINE AND STOOL UA pH 5.0 5.0 - 8.0 12/12/2015 [facility] URINE AND STOOL UA Bacteria Occasional /HPF None Seen /HPF 12/12/2015 [facility] URINE AND STOOL UA Urobilinogen <=1.0 mg/dL 0.1 - 1.0 12/12/2015 [facility] URINE AND STOOL UA Color Ltyellow 12/12/2015 [facility] URINE AND STOOL UA Nitrite Negative (12/11/15 10:10 PM) Negative 12/12/2015 [facility] URINE AND STOOL UA Bili Negative *NA* (12/11/15 10:10 PM) Negative 12/12/2015 [facility] URINE AND STOOL UA Blood Negative (12/11/15 10:10 PM) Negative 12/12/2015 [facility] URINE AND STOOL UA Ketones Trace mg/dL Negative mg/dL 12/12/2015 [facility] URINE AND STOOL UA Glucose 50 mg/dL Negative mg/dL 12/12/2015 [facility] URINE AND STOOL UA Spec Grav 1.006 <=1.030 12/12/2015 [facility] URINE AND STOOL UA Turbidity Clear (12/11/15 10:10 PM) Clear 12/12/2015 [facility] Chest 1view DX Chest 1view DX CHEST, 1 VIEW HISTORY: Dizziness; COMPARISON: 05/01/2015 FINDINGS: The lungs are clear. No pleural effusion or pneumothorax. 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 No acute osseous abnormality. SL: [id number] 12/11/2015 - - Read by: Aiden Hawkins MD Dictated Date/time: 12/11/15 23:04 Electronically Signed by: Aiden Hawkins MD 12/11/15 23:05 FINAL REPORT [facility] CHEM PANEL Magnesium Lvl 2.2 mg/dL 1.8 - 2.4 05/01/2015 [facility] CHEM PANEL eGFR 25 mL/min/1.73m2 05/01/2015 Result Comment: The eGFR is calculated using the CKD-EPI formula. In most young, healthy individuals the eGFR will be >90 mL/min/1.73m2. The eGFR declines with age. An eGFR of 60-89 may be normal in some populations, particularly the elderly, for whom the CKD-EPI formula has not been extensively validated. Use of the eGFR is not recommended in the following populations: Individuals with unstable creatinine concentrations, including patients and those with serious co-morbid conditions. Patients with extremes in muscle mass or diet. The data above are obtained from the National Kidney Disease Education Program (NKDEP) which additionally recommends that when the eGFR is used in patients with extremes of body mass index for purposes of drug dosing, the eGFR should be multiplied by the estimated BMI. [facility] CHEM PANEL CO2 31 meq/L 24 - 32 05/01/2015 [facility] CHEM PANEL Calcium Lvl 9.1 mg/dL 8.5 - 10.5 05/01/2015 [facility] CHEM PANEL Chloride Lvl 103 meq/L 95 - 109 05/01/2015 [facility] CHEM PANEL Potassium Lvl 4.6 meq/L 3.5 - 5.1 05/01/2015 [facility] CHEM PANEL Sodium Lvl 136 meq/L 135 - 145 05/01/2015 [facility] CHEM PANEL Creatinine Lvl 1.9 mg/dL 0.5 - 1.4 05/01/2015 [facility] CHEM PANEL BUN 36 mg/dL 7 - 22 05/01/2015 [facility] CHEM PANEL Glucose Lvl 54 mg/dL 70 - 99 05/01/2015 [facility] CHEM PANEL AGAP 6.6 meq/L 10.0 - 20.0 05/01/2015 [facility] HEMATOLOGY Segs-Bands # 1.4 K/CMM 1.5 - 8.1 05/01/2015 [facility] HEMATOLOGY Basophils 0.8 % 0.0 - 1.0 05/01/2015 [facility] HEMATOLOGY Lymphocytes # 1.1 K/CMM 1.0 - 5.5 05/01/2015 [facility] Monocytes # 0.3 K/CMM 0.0 - 0.8 05/01/2015 [facility] Segs 49.2 % 45.0 - 75.0 05/01/2015 [facility] Monocytes 9.3 % 2.0 - 12.0 05/01/2015 [facility] Eosinophils 1.3 % 0.0 - 4.0 05/01/2015 [facility] Lymphocytes 39.4 % 20.0 - 40.0 05/01/2015 [facility] Platelet 143 K/CMM 133 - 450 05/01/2015 [facility] MPV 6.8 fL 7.4 - 10.4 05/01/2015 [facility] RDW 13.1 % 11.5 - 14.5 05/01/2015 [facility] Hgb 10.6 g/dL 12.0 - 16.0 05/01/2015 [facility] RBC 3.46 M/CMM 4.20 - 5.40 05/01/2015 [facility] WBC 2.9 K/CMM 3.7 - 10.4 05/01/2015 [facility] Hct 31.7 % 36.0 - 48.0 05/01/2015 [facility] MCH 30.7 pg 27.0 - 31.0 05/01/2015 [facility] MCHC 33.5 g/dL 32.0 - 36.0 05/01/2015 [facility] MCV 91.8 fL 80.0 - 98.0 05/01/2015 [facility] thoracic 3 views DX Spine thoracic 3 views DX EXAM: Thoracic SPINE 2 VIEWS DATE: May 01, 2015 02:04:55 PM INDICATION: Pain Post Trauma COMPARISON: None available TECHNIQUE: AP and lateral views of the thoracic spine provided. FINDINGS: No fracture, malalignment or other bony abnormality is identified. . Multilevel anterior osteophytes are seen. Mild kyphosis of the midthoracic spine is noted. Bones are diffusely osteopenic. Midline sternotomy wires are seen. Aortic calcifications are noted. No prevertebral or paraspinous soft tissue abnormality is identified. IMPRESSION: 1. No fracture or malalignment SL: 05/01/2015 - - Read by: Jasmin Stafford MD Dictated Date/time: 05/01/15 14:37 Electronically Signed by: Jasmin Stafford MD 05/01/15 14:38 FINAL REPORT [facility] Ribs bilateral w PA chest DX Ribs bilateral w PA chest DX PROCEDURE: Ribs bilateral with PA chest 4 views REASON FOR EXAM: See Clinic Indication CLINICAL INDICATION: Pain from a fall COMPARISON: None. FINDINGS: No acute cardiopulmonary process detected. Stable mildly enlarged cardiac silhouette. Postoperative median sternotomy. Marked atherosclerotic thoracic aorta. No definite displaced rib fracture or rib lesion detected. SL: 05/01/2015 - - Read by: Elieser Kaye MD Dictated Date/time: 05/01/15 15:04 Electronically Signed by: Elieser Kaye MD 05/01/15 15:05 FINAL REPORT [facility] Spine cervical wo contrast CT Spine cervical wo contrast CT EXAM: CT Cervical spine without contrast. CLINICAL INFORMATION: Pain Post Trauma. COMPARISON: [None] TECHNIQUE: Axial views of the cervical spine with sagittal and coronal reformations. FINDINGS: Diffuse osteopenia. No definite acute fracture, subluxation or dislocation seen. The disc spaces are maintained. Precervical soft tissues within normal limits. The neuroforamina are patent bilaterally. Marked atherosclerotic calcification of the carotid bifurcations. IMPRESSION: No CT evidence of acute cervical osseous injury detected. SL: 05/01/2015 - - Read by: Elieser Kaye MD Dictated Date/time: 05/01/15 13:40 Electronically Signed by: Elieser Kaye MD 05/01/15 13:42 FINAL REPORT [facility] ANEMIA STUDY Vitamin B12 Lvl 504 pg/mL 254 - 1320 04/19/2015 [facility] ANEMIA STUDY % Satur Fe 53 % 12 - 57 04/19/2015 [facility] ANEMIA STUDY TIBC 395 ug/dl 228 - 428 04/19/2015 [facility] ANEMIA STUDY Ferritin Lvl 40 ng/mL 5 - 204 04/19/2015 [facility] ANEMIA STUDY UIBC 184 ug/dl 110 - 370 04/19/2015 [facility] ANEMIA STUDY Iron 211 ug/dl 30 - 160 04/19/2015 [facility] ANEMIA STUDY Folate Lvl 10.5 ng/mL >=3.0 ng/mL 04/19/2015 [facility] HEMATOLOGY MPV 6.9 fL 7.4 - 10.4 04/19/2015 [facility] HEMATOLOGY Platelet 151 K/CMM 133 - 450 04/19/2015 [facility] HEMATOLOGY RBC 3.71 M/CMM 4.20 - 5.40 04/19/2015 [facility] HEMATOLOGY WBC 4.5 K/CMM 3.7 - 10.4 04/19/2015 [facility] HEMATOLOGY Hgb 11.2 g/dL 12.0 - 16.0 04/19/2015 [facility] HEMATOLOGY MCV 92.0 fL 80.0 - 98.0 04/19/2015 [facility] HEMATOLOGY Hct 34.1 % 36.0 - 48.0 04/19/2015 [facility] HEMATOLOGY MCH 30.1 pg 27.0 - 31.0 04/19/2015 [facility] HEMATOLOGY MCHC 32.7 g/dL 32.0 - 36.0 04/19/2015 [facility] HEMATOLOGY RDW 13.9 % 11.5 - 14.5 04/19/2015 [facility] HEMATOLOGY Retic Auto 1.1 % 0.5 - 1.5 04/19/2015 [facility] HEMATOLOGY Rouleaux Present *ABN* (04/19/15 11:45 AM) None Seen 04/19/2015 [facility] HEMATOLOGY Monocytes # 0.5 K/CMM 0.0 - 0.8 04/19/2015 [facility] HEMATOLOGY Hypochrom 1+ (04/19/15 11:45 AM) None Seen 04/19/2015 [facility] HEMATOLOGY Toxic Gran Moderate *ABN* (04/19/15 11:45 AM) None Seen 04/19/2015 [facility] HEMATOLOGY Polychrom Moderate *ABN* (04/19/15 11:45 AM) None Seen 04/19/2015 [facility] HEMATOLOGY Segs-Bands # 2.3 K/CMM 1.5 - 8.1 04/19/2015 [facility] HEMATOLOGY Lymphocytes # 1.6 K/CMM 1.0 - 5.5 04/19/2015 [facility] HEMATOLOGY Basophils 0.7 % 0.0 - 1.0 04/19/2015 [facility] HEMATOLOGY Segs 52.0 % 45.0 - 75.0 04/19/2015 [facility] HEMATOLOGY Lymphocytes 36.1 % 20.0 - 40.0 04/19/2015 [facility] HEMATOLOGY Monocytes 10.3 % 2.0 - 12.0 04/19/2015 [facility] HEMATOLOGY Eosinophils 0.9 % 0.0 - 4.0 04/19/2015 [facility] Spine lumbar series DX Spine lumbar series DX Examination: Lumbar spine, 5 views History: 724.2 lumbago Comparison: None. Findings: Multiple views of the lumbar spine show 5 nonrib bearing lumbar vertebra. No acute compression fracture is seen. Bones are demineralized. Grade 1 anterolisthesis of L4 over L5 by 6 mm is seen. Scattered mild marginal osteophytes throughout the lumbar spine are seen with mild disc height loss, compatible with mild degenerative disc disease. Moderate to severe facet arthrosis in the lower lumbar spine is seen. Changes of prior laminectomy at L4 and L5 are seen. Sacral nerve stimulator is incidentally noted. No pars interarticularis defects are seen. IMPRESSION: 1. Degenerative disc disease with advanced facet arthrosis of the lower lumbar spine. 2. Grade 1 anterolisthesis of L4 over L5. 3. Changes of laminectomy at L4 and L5. SL: 16 03/01/2015 - - Read by: Richard Major MD Dictated Date/time: 03/01/15 16:16 Electronically Signed by: Richard Major MD 03/01/15 16:18 FINAL REPORT [facility] Spine cervical series DX Spine cervical series DX Examination: Cervical spine, 7 views History: 723.4 Brachial Neuritis or Radiculitis Nos Comparison: None. Findings: Multiple views of the cervical spine show visualization through the C7 vertebral body on the lateral swimmer's view. No acute vertebral body height loss or subluxation is seen. Intervertebral disc spaces are well-maintained. Mild facet arthrosis throughout the cervical spine is seen. The neural foramen are patent bilaterally. Odontoid process is intact. Prevertebral soft tissues are unremarkable. Bones are demineralized. IMPRESSION: Mild facet arthrosis throughout the cervical spine. SL: 16 03/01/2015 - - Read by: Richard Major MD Dictated Date/time: 03/01/15 16:25 Electronically Signed by: Richard Major MD 03/01/15 16:26 FINAL REPORT [facility] Knee 4+ views bilat DX Knee 4+ views bilat DX NAME: WILFREDO SORENSEN : 1935 SEX: F Ordering Physician: Laura Cordova Four view weight-bearing examination of both knees : Mar 01, 2015 03:59:00 PM. CLINICAL INDICATION: 719.46 Pain in Joint Involving Lower Leg. Comparison Examination: None. FINDINGS: Right knee: The patient is status post right total knee replacement. No fracture or dislocation. Mild to moderate spurring is seen at the quadriceps tendon insertion site on the patella. Question small right knee effusion. Vascular calcification seen about the right knee. Left knee: Loss of joint space is seen to the medial joint compartment with near [id number] to the medial joint compartment. Surgical clips in the medial soft tissues of the left knee. Moderate degenerative changes seen about the patellofemoral joint and mild to moderate degenerative changes about the medial and lateral joint compartments. Left knee effusion. No fracture or dislocation. SL: 13 03/01/2015 - - Read by: Travis Fletcher MD Dictated Date/time: 03/01/15 16:12 Electronically Signed by: Travis Fletcher MD 03/01/15 16:16 FINAL REPORT [facility] ELECTROLYTES AGAP 12.2 meq/L 10.0 - 20.0 01/07/2015 [facility] ELECTROLYTES eGFR 48 mL/min/1.73m2 01/07/2015 1Result Comment: The eGFR is calculated using the CKD-EPI formula. In most young, healthy individuals the eGFR will be >90 mL/min/1.73m2. The eGFR declines with age. An eGFR of 60-89 may be normal in some populations, particularly the elderly, for whom the CKD-EPI formula has not been extensively validated. Use of the eGFR is not recommended in the following populations: Individuals with unstable creatinine concentrations, including patients and those with serious co-morbid conditions. Patients with extremes in muscle mass or diet. The data above are obtained from the National Kidney Disease Education Program (NKDEP) which additionally recommends that when the eGFR is used in patients with extremes of body mass index for purposes of drug dosing, the eGFR should be multiplied by the estimated BMI. [facility] ELECTROLYTES Creatinine Lvl 1.1 mg/dL 0.5 - 1.4 01/07/2015 [facility] ELECTROLYTES CO2 30 meq/L 24 - 32 01/07/2015 [facility] ELECTROLYTES BUN 14 mg/dL 7 - 22 01/07/2015 [facility] ELECTROLYTES Calcium Lvl 8.6 mg/dL 8.5 - 10.5 01/07/2015 [facility] ELECTROLYTES Glucose Lvl 128 mg/dL 70 - 99 01/07/2015 4Interpretive Data: Adult reference range values reflect the clinical guidelines of the [place] [employer]. [facility] ELECTROLYTES Potassium Lvl 4.2 meq/L 3.5 - 5.1 01/07/2015 [facility] ELECTROLYTES Chloride Lvl 101 meq/L 95 - 109 01/07/2015 [facility] ELECTROLYTES Sodium Lvl 139 meq/L 135 - 145 01/07/2015 [facility] HEMATOLOGY MCH 26.3 pg 27.0 - 31.0 01/07/2015 [facility] MCHC 32.8 g/dL 32.0 - 36.0 01/07/2015 [facility] RDW 17.4 % 11.5 - 14.5 01/07/2015 [facility] Platelet 190 K/CMM 133 - 450 01/07/2015 [facility] MPV 7.2 fL 7.4 - 10.4 01/07/2015 [facility] Hgb 11.2 g/dL 12.0 - 16.0 01/07/2015 [facility] Hct 34.0 % 36.0 - 48.0 01/07/2015 [facility] MCV 80.1 fL 80.0 - 98.0 01/07/2015 [facility] RBC 4.24 M/CMM 4.20 - 5.40 01/07/2015 [facility] WBC 5.1 K/CMM 3.7 - 10.4 01/07/2015 [facility] Sodium Lvl 138 meq/L 135 - 145 01/05/2015 [facility] Potassium Lvl 4.1 meq/L 3.5 - 5.1 01/05/2015 [facility] ELECTROLYTES Chloride Lvl 101 meq/L 95 - 109 01/05/2015 [facility] eGFR 43 mL/min/1.73m2 01/05/2015 2Result Comment: The eGFR is calculated using the CKD-EPI formula. In most young, healthy individuals the eGFR will be >90 mL/min/1.73m2. The eGFR declines with age. An eGFR of 60-89 may be normal in some populations, particularly the elderly, for whom the CKD-EPI formula has not been extensively validated. Use of the eGFR is not recommended in the following populations: Individuals with unstable creatinine concentrations, including patients and those with serious co-morbid conditions. Patients with extremes in muscle mass or diet. The data above are obtained from the National Kidney Disease Education Program (NKDEP) which additionally recommends that when the eGFR is used in patients with extremes of body mass index for purposes of drug dosing, the eGFR should be multiplied by the estimated BMI. [facility] ELECTROLYTES AST 10 unit/L 0 - 37 01/05/2015 [facility] ELECTROLYTES Alk Phos 89 unit/L 39 - 136 01/05/2015 [facility] ELECTROLYTES Bili Total 0.3 mg/dL 0.2 - 1.3 01/05/2015 [facility] ELECTROLYTES Creatinine Lvl 1.2 mg/dL 0.5 - 1.4 01/05/2015 [facility] ELECTROLYTES BUN 22 mg/dL 7 - 22 01/05/2015 [facility] ELECTROLYTES Glucose Lvl 127 mg/dL 70 - 99 01/05/2015 5Interpretive Data: Adult reference range values reflect the clinical guidelines of the [place] [employer]. [facility] ELECTROLYTES Calcium Lvl 8.5 mg/dL 8.5 - 10.5 01/05/2015 [facility] ELECTROLYTES AGAP 13.1 meq/L 10.0 - 20.0 01/05/2015 [facility] ELECTROLYTES CO2 28 meq/L 24 - 32 01/05/2015 [facility] ELECTROLYTES Total Protein 5.9 g/dL 6.4 - 8.4 01/05/2015 [facility] ELECTROLYTES B/C Ratio 18 6 - 25 01/05/2015 [facility] ELECTROLYTES ALT 15 unit/L 0 - 65 01/05/2015 [facility] ELECTROLYTES A/G Ratio 1.3 0.7 - 1.6 01/05/2015 [facility] ELECTROLYTES Globulin 2.6 g/dL 2.0 - 4.0 01/05/2015 [facility] ELECTROLYTES Albumin Lvl 3.3 g/dL 3.5 - 5.0 01/05/2015 [facility] HEMATOLOGY Monocytes # 0.4 K/CMM 0.0 - 0.8 01/05/2015 [facility] HEMATOLOGY Segs-Bands # 4.3 K/CMM 1.5 - 8.1 01/05/2015 [facility] HEMATOLOGY Basophils 0.5 % 0.0 - 1.0 01/05/2015 [facility] HEMATOLOGY Lymphocytes # 2.1 K/CMM 1.0 - 5.5 01/05/2015 [facility] HEMATOLOGY Segs 62.6 % 45.0 - 75.0 01/05/2015 [facility] Lymphocytes 30.5 % 20.0 - 40.0 01/05/2015 [facility] Monocytes 6.1 % 2.0 - 12.0 01/05/2015 [facility] Eosinophils 0.3 % 0.0 - 4.0 01/05/2015 [facility] MPV 7.4 fL 7.4 - 10.4 01/05/2015 [facility] RDW 17.6 % 11.5 - 14.5 01/05/2015 [facility] Platelet 187 K/CMM 133 - 450 01/05/2015 [facility] MCH 27.0 pg 27.0 - 31.0 01/05/2015 [facility] MCHC 33.5 g/dL 32.0 - 36.0 01/05/2015 [facility] Hct 33.0 % 36.0 - 48.0 01/05/2015 [facility] MCV 80.8 fL 80.0 - 98.0 01/05/2015 [facility] WBC 6.8 K/CMM 3.7 - 10.4 01/05/2015 [facility] RBC 4.09 M/CMM 4.20 - 5.40 01/05/2015 [facility] Hgb 11.0 g/dL 12.0 - 16.0 01/05/2015 [facility] CHEM PANEL eGFR 39 mL/min/1.73m2 01/04/2015 3Result Comment: The eGFR is calculated using the CKD-EPI formula. In most young, healthy individuals the eGFR will be >90 mL/min/1.73m2. The eGFR declines with age. An eGFR of 60-89 may be normal in some populations, particularly the elderly, for whom the CKD-EPI formula has not been extensively validated. Use of the eGFR is not recommended in the following populations: Individuals with unstable creatinine concentrations, including patients and those with serious co-morbid conditions. Patients with extremes in muscle mass or diet. The data above are obtained from the National Kidney Disease Education Program (NKDEP) which additionally recommends that when the eGFR is used in patients with extremes of body mass index for purposes of drug dosing, the eGFR should be multiplied by the estimated BMI. [facility] CHEM PANEL AGAP 13.3 meq/L 10.0 - 20.0 01/04/2015 [facility] CHEM PANEL CO2 27 meq/L 24 - 32 01/04/2015 [facility] CHEM PANEL Calcium Lvl 8.3 mg/dL 8.5 - 10.5 01/04/2015 [facility] CHEM PANEL Chloride Lvl 101 meq/L 95 - 109 01/04/2015 [facility] CHEM PANEL Potassium Lvl 4.3 meq/L 3.5 - 5.1 01/04/2015 [facility] CHEM PANEL Glucose Lvl 288 mg/dL 70 - 99 01/04/2015 6Interpretive Data: Adult reference range values reflect the clinical guidelines of the [place] [employer]. [facility] CHEM PANEL Creatinine Lvl 1.3 mg/dL 0.5 - 1.4 01/04/2015 [facility] CHEM PANEL Sodium Lvl 137 meq/L 135 - 145 01/04/2015 [facility] CHEM PANEL BUN 20 mg/dL 7 - 22 01/04/2015 [facility] HEMATOLOGY WBC 5.0 K/CMM 3.7 - 10.4 01/04/2015 [facility] HEMATOLOGY RBC 4.39 M/CMM 4.20 - 5.40 01/04/2015 [facility] MCH 26.3 pg 27.0 - 31.0 01/04/2015 [facility] HEMATOLOGY Hct 35.2 % 36.0 - 48.0 01/04/2015 [facility] MCHC 32.8 g/dL 32.0 - 36.0 01/04/2015 [facility] HEMATOLOGY RDW 17.0 % 11.5 - 14.5 01/04/2015 [facility] HEMATOLOGY MCV 80.2 fL 80.0 - 98.0 01/04/2015 [facility] Hgb 11.6 g/dL 12.0 - 16.0 01/04/2015 [facility] Platelet 190 K/CMM 133 - 450 01/04/2015 [facility] HEMATOLOGY MPV 7.3 fL 7.4 - 10.4 01/04/2015 [facility] HEMATOLOGY Segs-Bands # 3.9 K/CMM 1.5 - 8.1 01/04/2015 [facility] HEMATOLOGY Lymphocytes 19.3 % 20.0 - 40.0 01/04/2015 [facility] HEMATOLOGY Monocytes 2.4 % 2.0 - 12.0 01/04/2015 [facility] HEMATOLOGY Segs 78.2 % 45.0 - 75.0 01/04/2015 [facility] HEMATOLOGY Basophils 0.1 % 0.0 - 1.0 01/04/2015 [facility] HEMATOLOGY Monocytes # 0.1 K/CMM 0.0 - 0.8 01/04/2015 [facility] HEMATOLOGY Lymphocytes # 1.0 K/CMM 1.0 - 5.5 01/04/2015 [facility] HEMATOLOGY Segs-Bands # 2.3 K/CMM 1.5 - 8.1 01/03/2015 [facility] HEMATOLOGY Monocytes 10.3 % 2.0 - 12.0 01/03/2015 [facility] HEMATOLOGY Lymphocytes 35.8 % 20.0 - 40.0 01/03/2015 [facility] HEMATOLOGY Basophils 0.8 % 0.0 - 1.0 01/03/2015 [facility] HEMATOLOGY Eosinophils 1.1 % 0.0 - 4.0 01/03/2015 [facility] HEMATOLOGY Segs 52.0 % 45.0 - 75.0 01/03/2015 [facility] HEMATOLOGY Lymphocytes # 1.6 K/CMM 1.0 - 5.5 01/03/2015 [facility] HEMATOLOGY Monocytes # 0.5 K/CMM 0.0 - 0.8 01/03/2015 [facility] ANEMIA STUDY Ferritin Lvl 14 ng/mL 5 - 204 01/02/2015 [facility] ANEMIA STUDY TIBC 384 ug/dl 228 - 428 01/02/2015 [facility] ANEMIA STUDY Iron 40 ug/dl 30 - 160 01/02/2015 [facility] ANEMIA STUDY % Satur Fe 10 % 12 - 57 01/02/2015 [facility] ANEMIA STUDY UIBC 344 ug/dl 110 - 370 01/02/2015 [facility] ANEMIA STUDY Folate Lvl 6.2 ng/mL >=3.0 ng/mL 01/02/2015 [facility] ANEMIA STUDY Vitamin B12 Lvl 473 pg/mL 254 - 1320 01/02/2015 [facility] HEMATOLOGY Eosinophils 1.4 % 0.0 - 4.0 01/02/2015 [facility] HEMATOLOGY Eosinophils # 0.1 K/CMM 0.0 - 0.5 01/02/2015 [facility] IMMUNOLOGY Albumin % 62.1 REL % 55.8 - 66.1 01/02/2015 [facility] IMMUNOLOGY Alpha 1 Glob 0.38 g/dL 0.18 - 0.41 01/02/2015 [facility] IMMUNOLOGY Albumin (SPE) 4.41 g/dL 3.57 - 5.55 01/02/2015 [facility] IMMUNOLOGY Gamma % 6.1 REL % 11.1 - 18.7 01/02/2015 [facility] IMMUNOLOGY Beta % 10.9 REL % 7.8 - 13.7 01/02/2015 [facility] Gamma Glob 0.43 g/dL 0.71 - 1.57 01/02/2015 [facility] Beta Glob 0.77 g/dL 0.50 - 1.15 01/02/2015 [facility] Alpha 2 Glob 1.11 g/dL 0.45 - 1.00 01/02/2015 [facility] SPE Interp Total protein and serum albumin levels are within reference ranges. The gamma globulins are markedly decreased. All other globulin fractions are present in a normal distribution, with minor nonspecific changes. No monoclonal proteins are identified; however, in view of the significant decrease in polyclonal gamma globulins, an occult monoclonal protein cannot be excluded. Immunofixation electrophoresis of serum and urine is recommended for further evaluation.Interpretation performed at [facility]. 01/02/2015 [facility] Tot Prot (SPE) 7.1 g/dL 6.4 - 8.4 01/02/2015 [facility] Alpha 2 % 15.6 REL % 7.0 - 11.9 01/02/2015 [facility] Alpha 1 % 5.3 REL % 2.8 - 4.9 01/02/2015 [facility] SARAH Ser Interp Serum immunofixation electrophoresis reveals a polyclonal pattern of immunoglobulins with a marked decrease in quantity. No monoclonal proteins are identified.Interpretation performed at [facility]. 01/02/2015 [facility] SARAH Ser Pattern Very faint, diffusely immunoreactive bands are noted in the IgG, IgA, kappa and lambda lanes. No monoclonal bands are identified.Interpretation performed at [facility]. 01/02/2015 [facility] HIV 1/2 Ab Negative *NA* (01/02/15 4:13 AM) Negative 01/02/2015 [facility] Hep Bs Ag Negative *NA* (01/02/15 4:13 AM) Negative 01/02/2015 [facility] Hep Bs Ab null <=7.4 mIU/mL 01/02/2015 7Interpretive Data: <=7.4 mIU/mL--------Negative for Anti-HBs. Not immune to HBV infection. 7.5-12.4 mIU/mL--Borderline for Anti-HBs and immune status should be further assessed by considering other factors such as clinical status follow-up testing, associated risk factors, and the use of additional diagnostic information. >12.4 mIU/mL-------Positive for Anti-HBs. Immune to HBV infection [facility] IMMUNOLOGY Hep B Core Ab Negative *NA* (01/02/15 4:13 AM) Negative 01/02/2015 [facility] IMMUNOLOGY Hep C Ab Negative *NA* (01/02/15 4:13 AM) 01/02/2015 [facility] THYROID PANEL TSH 0.900 uIU/mL 0.360 - 3.740 01/02/2015 [facility] Abdomen complete US Abdomen complete US Exam: Abdomen ultrasound. History: Weight Loss Comparison: None. Findings: Sonographic evaluation of the abdomen was performed. The liver and spleen are normal in echotexture and size without focal abnormality. The spleen measures 12.6 x 4.9 x 3.8 cm. The pancreas is normal in appearance. Abdominal aorta is not well-visualized. The visualized portions of the IVC are normal. The patient is status post cholecystectomy. There is no biliary ductal dilatation. The common bile duct measures 3 mm. The kidneys are normal in echotexture and size without hydronephrosis or echogenic stone. The right kidney measures 8.6 x 4.9 x 5.5 cm and the left kidney measures 10.6 x 5.2 x 5.4 cm. No free fluid is noted in Chua's pouch. The main portal vein is patent with hepatopedal flow. Impression: 1. Status post cholecystectomy. 2. Otherwise, unremarkable abdomen ultrasound. SL: 16 01/02/2015 - - Read by: Richard Major MD Dictated Date/time: 01/02/15 09:52 Electronically Signed by: Richard Major MD 01/02/15 09:55 FINAL REPORT [facility] URINE AND STOOL Occult Bld Stl Negative (12/30/14 5:12 AM) Negative 12/30/2014 [facility] BLOOD BANK RESULTS RBC product Product available (12/30/14 5:05 AM) 12/30/2014 [facility] BLOOD BANK RESULTS ABO/Rh A POS 12/30/2014 [facility] BLOOD BANK RESULTS Antibody Scrn Negative (12/30/14 1:04 AM) 12/30/2014 [facility] CHEM PANEL Total Protein 7.1 g/dL 6.4 - 8.4 12/30/2014 [facility] CHEM PANEL Albumin Lvl 3.7 g/dL 3.5 - 5.0 12/30/2014 [facility] CHEM PANEL Alk Phos 97 unit/L 39 - 136 12/30/2014 [facility] CHEM PANEL AST 25 unit/L 0 - 37 12/30/2014 [facility] CHEM PANEL Bili Total 0.3 mg/dL 0.2 - 1.3 12/30/2014 [facility] CHEM PANEL ALT 25 unit/L 0 - 65 12/30/2014 [facility] CHEM PANEL A/G Ratio 1.1 0.7 - 1.6 12/30/2014 [facility] CHEM PANEL B/C Ratio 14 6 - 25 12/30/2014 [facility] CHEM PANEL Globulin 3.4 g/dL 2.0 - 4.0 12/30/2014 [facility] CHEM PANEL Magnesium Lvl 2.2 mg/dL 1.8 - 2.4 12/30/2014 [facility] HEMATOLOGY Microcyte 1+ *ABN* (12/30/14 1:04 AM) None Seen 12/30/2014 [facility] HEMATOLOGY INR 0.98 0.85 - 1.17 12/30/2014 8Interpretive Data: RECOMMENDED RANGES FOR PROTIME INR: 2.0-3.0 for most medical and surgical thromboembolic states. 2.5-3.5 for artificial heart valves and recurrent embolism. INR SHOULD BE USED ONLY FOR PATIENTS ON STABLE ANTICOAGULANT THERAPY. [facility] HEMATOLOGY PTT 27.2 s 22.9 - 35.8 12/30/2014 9Interpretive Data: Heparin Therapeutic Range: 57 - 92 Seconds [facility] HEMATOLOGY PT 13.0 s 12.0 - 14.7 12/30/2014 [facility] Chest 1view DX Chest 1view DX CHEST, ONE VIEW HISTORY: Coughing. COMPARISON: 06/29/2014 FINDINGS: The lungs are clear. No significant pleural effusion. No pneumothorax. CABG. Mild cardiomegaly. No acute osseous abnormality. SL: 14 12/30/2014 - - Read by: Aiden Hawkins MD Dictated Date/time: 12/30/14 00:30 Electronically Signed by: Aiden Hawkins MD 12/30/14 00:30 FINAL REPORT [facility] TOXICOLOGY Vanco Tr 11.7 ug/ml 07/04/2014 8Interpretive Data: Therapeutic Range: Trough: 10 - 20 ug/mL Peak: 20 - 40 ug/mL Potential Toxicity: >80 ug/mL [facility] TOXICOLOGY Vanco Tr TND 1030 07/04/2014 [facility] ELECTROLYTES CO2 28 meq/L 24 - 32 07/02/2014 [facility] ELECTROLYTES eGFR 54 mL/min/1.73m2 07/02/2014 1Result Comment: The eGFR is calculated using the CKD-EPI formula. In most young, healthy individuals the eGFR will be >90 mL/min/1.73m2. The eGFR declines with age. An eGFR of 60-89 may be normal in some populations, particularly the elderly, for whom the CKD-EPI formula has not been extensively validated. Use of the eGFR is not recommended in the following populations: Individuals with unstable creatinine concentrations, including patients and those with serious co-morbid conditions. Patients with extremes in muscle mass or diet. The data above are obtained from the National Kidney Disease Education Program (NKDEP) which additionally recommends that when the eGFR is used in patients with extremes of body mass index for purposes of drug dosing, the eGFR should be multiplied by the estimated BMI. [facility] ELECTROLYTES Calcium Lvl 8.9 mg/dL 8.5 - 10.5 07/02/2014 [facility] ELECTROLYTES AGAP 14.9 meq/L 10.0 - 20.0 07/02/2014 [facility] ELECTROLYTES Creatinine Lvl 1.0 mg/dL 0.5 - 1.4 07/02/2014 [facility] ELECTROLYTES BUN 11 mg/dL 7 - 22 07/02/2014 [facility] ELECTROLYTES Sodium Lvl 142 meq/L 135 - 145 07/02/2014 [facility] ELECTROLYTES Potassium Lvl 3.9 meq/L 3.5 - 5.1 07/02/2014 [facility] ELECTROLYTES Chloride Lvl 103 meq/L 95 - 109 07/02/2014 [facility] ELECTROLYTES Glucose Lvl 145 mg/dL 70 - 99 07/02/2014 4Interpretive Data: Adult reference range values reflect the clinical guidelines of the [place] [employer]. [facility] HEMATOLOGY WBC 3.1 K/CMM 3.7 - 10.4 07/02/2014 [facility] HEMATOLOGY RBC 3.56 M/CMM 4.20 - 5.40 07/02/2014 [facility] MPV 7.5 fL 7.4 - 10.4 07/02/2014 [facility] HEMATOLOGY Platelet 146 K/CMM 133 - 450 07/02/2014 [facility] MCH 26.5 pg 27.0 - 31.0 07/02/2014 [facility] MCHC 32.5 g/dL 32.0 - 36.0 07/02/2014 [facility] HEMATOLOGY RDW 15.6 % 11.5 - 14.5 07/02/2014 [facility] HEMATOLOGY Hct 29.0 % 36.0 - 48.0 07/02/2014 [facility] MCV 81.4 fL 80.0 - 98.0 07/02/2014 [facility] HEMATOLOGY Hgb 9.4 g/dL 12.0 - 16.0 07/02/2014 [facility] CHEM PANEL eGFR 54 mL/min/1.73m2 07/01/2014 2Result Comment: The eGFR is calculated using the CKD-EPI formula. In most young, healthy individuals the eGFR will be >90 mL/min/1.73m2. The eGFR declines with age. An eGFR of 60-89 may be normal in some populations, particularly the elderly, for whom the CKD-EPI formula has not been extensively validated. Use of the eGFR is not recommended in the following populations: Individuals with unstable creatinine concentrations, including patients and those with serious co-morbid conditions. Patients with extremes in muscle mass or diet. The data above are obtained from the National Kidney Disease Education Program (NKDEP) which additionally recommends that when the eGFR is used in patients with extremes of body mass index for purposes of drug dosing, the eGFR should be multiplied by the estimated BMI. [facility] CHEM PANEL Calcium Lvl 8.8 mg/dL 8.5 - 10.5 07/01/2014 [facility] CHEM PANEL CO2 27 meq/L 24 - 32 07/01/2014 [facility] CHEM PANEL Chloride Lvl 103 meq/L 95 - 109 07/01/2014 [facility] CHEM PANEL BUN 13 mg/dL 7 - 22 07/01/2014 [facility] CHEM PANEL Creatinine Lvl 1.0 mg/dL 0.5 - 1.4 07/01/2014 [facility] CHEM PANEL Sodium Lvl 140 meq/L 135 - 145 07/01/2014 [facility] CHEM PANEL Potassium Lvl 4.0 meq/L 3.5 - 5.1 07/01/2014 [facility] CHEM PANEL Glucose Lvl 210 mg/dL 70 - 99 07/01/2014 5Interpretive Data: Adult reference range values reflect the clinical guidelines of the [place] [employer]. [facility] CHEM PANEL AGAP 14.0 meq/L 10.0 - 20.0 07/01/2014 [facility] HEMATOLOGY Segs-Bands # 1.9 K/CMM 1.5 - 8.1 07/01/2014 [facility] Basophils 0.8 % 0.0 - 1.0 07/01/2014 [facility] Monocytes # 0.2 K/CMM 0.0 - 0.8 07/01/2014 [facility] Lymphocytes # 0.9 K/CMM 1.0 - 5.5 07/01/2014 [facility] Eosinophils 1.0 % 0.0 - 4.0 07/01/2014 [facility] Monocytes 6.8 % 2.0 - 12.0 07/01/2014 [facility] Lymphocytes 28.7 % 20.0 - 40.0 07/01/2014 [facility] Segs 62.7 % 45.0 - 75.0 07/01/2014 [facility] MPV 7.7 fL 7.4 - 10.4 07/01/2014 [facility] MCV 82.1 fL 80.0 - 98.0 07/01/2014 [facility] MCH 25.9 pg 27.0 - 31.0 07/01/2014 [facility] MCHC 31.5 g/dL 32.0 - 36.0 07/01/2014 [facility] RDW 15.7 % 11.5 - 14.5 07/01/2014 [facility] Platelet 135 K/CMM 133 - 450 07/01/2014 [facility] WBC 3.0 K/CMM 3.7 - 10.4 07/01/2014 [facility] RBC 3.80 M/CMM 4.20 - 5.40 07/01/2014 [facility] Hct 31.2 % 36.0 - 48.0 07/01/2014 [facility] Hgb 9.8 g/dL 12.0 - 16.0 07/01/2014 [facility] CHEM PANEL Lactic Acid Lvl 1.5 mMol/L 0.5 - 2.2 06/30/2014 [facility] CHEM PANEL eGFR 43 mL/min/1.73m2 06/30/2014 3Result Comment: The eGFR is calculated using the CKD-EPI formula. In most young, healthy individuals the eGFR will be >90 mL/min/1.73m2. The eGFR declines with age. An eGFR of 60-89 may be normal in some populations, particularly the elderly, for whom the CKD-EPI formula has not been extensively validated. Use of the eGFR is not recommended in the following populations: Individuals with unstable creatinine concentrations, including patients and those with serious co-morbid conditions. Patients with extremes in muscle mass or diet. The data above are obtained from the National Kidney Disease Education Program (NKDEP) which additionally recommends that when the eGFR is used in patients with extremes of body mass index for purposes of drug dosing, the eGFR should be multiplied by the estimated BMI. [facility] CHEM PANEL Bili Total 0.3 mg/dL 0.2 - 1.3 06/30/2014 [facility] CHEM PANEL Alk Phos 76 unit/L 39 - 136 06/30/2014 [facility] CHEM PANEL AST 23 unit/L 0 - 37 06/30/2014 [facility] CHEM PANEL ALT 20 unit/L 0 - 65 06/30/2014 [facility] CHEM PANEL Albumin Lvl 3.2 g/dL 3.5 - 5.0 06/30/2014 [facility] CHEM PANEL Total Protein 5.9 g/dL 6.4 - 8.4 06/30/2014 [facility] CHEM PANEL Calcium Lvl 8.5 mg/dL 8.5 - 10.5 06/30/2014 [facility] CHEM PANEL Glucose Lvl 149 mg/dL 70 - 99 06/30/2014 6Interpretive Data: Adult reference range values reflect the clinical guidelines of the [place] [employer]. [facility] CHEM PANEL CO2 28 meq/L 24 - 32 06/30/2014 [facility] CHEM PANEL BUN 20 mg/dL 7 - 22 06/30/2014 [facility] CHEM PANEL Creatinine Lvl 1.2 mg/dL 0.5 - 1.4 06/30/2014 [facility] CHEM PANEL Potassium Lvl 3.9 meq/L 3.5 - 5.1 06/30/2014 [facility] CHEM PANEL Chloride Lvl 103 meq/L 95 - 109 06/30/2014 [facility] CHEM PANEL Sodium Lvl 137 meq/L 135 - 145 06/30/2014 [facility] CHEM PANEL Globulin 2.7 g/dL 2.0 - 4.0 06/30/2014 [facility] CHEM PANEL AGAP 9.9 meq/L 10.0 - 20.0 06/30/2014 [facility] CHEM PANEL B/C Ratio 17 6 - 25 06/30/2014 [facility] CHEM PANEL A/G Ratio 1.2 0.7 - 1.6 06/30/2014 [facility] HEMATOLOGY Basophils 0.3 % 0.0 - 1.0 06/30/2014 [facility] HEMATOLOGY Segs-Bands # 4.4 K/CMM 1.5 - 8.1 06/30/2014 [facility] HEMATOLOGY Eosinophils 0.8 % 0.0 - 4.0 06/30/2014 [facility] HEMATOLOGY Monocytes 4.1 % 2.0 - 12.0 06/30/2014 [facility] HEMATOLOGY Lymphocytes 20.4 % 20.0 - 40.0 06/30/2014 [facility] HEMATOLOGY Segs 74.4 % 45.0 - 75.0 06/30/2014 [facility] HEMATOLOGY Lymphocytes # 1.2 K/CMM 1.0 - 5.5 06/30/2014 [facility] HEMATOLOGY Monocytes # 0.2 K/CMM 0.0 - 0.8 06/30/2014 [facility] HEMATOLOGY MPV 7.6 fL 7.4 - 10.4 06/30/2014 [facility] HEMATOLOGY Platelet 134 K/CMM 133 - 450 06/30/2014 [facility] HEMATOLOGY RDW 15.5 % 11.5 - 14.5 06/30/2014 [facility] MCHC 32.7 g/dL 32.0 - 36.0 06/30/2014 [facility] MCH 26.6 pg 27.0 - 31.0 06/30/2014 [facility] HEMATOLOGY MCV 81.3 fL 80.0 - 98.0 06/30/2014 [facility] HEMATOLOGY Hct 27.7 % 36.0 - 48.0 06/30/2014 [facility] HEMATOLOGY Hgb 9.1 g/dL 12.0 - 16.0 06/30/2014 [facility] HEMATOLOGY WBC 5.9 K/CMM 3.7 - 10.4 06/30/2014 [facility] HEMATOLOGY RBC 3.41 M/CMM 4.20 - 5.40 06/30/2014 [facility] URINE AND STOOL UA Color [place] 06/30/2014 [facility] URINE AND STOOL UA Protein Negative mg/dL Negative mg/dL 06/30/2014 [facility] URINE AND STOOL UA pH 5.0 5.0 - 8.0 06/30/2014 [facility] URINE AND STOOL UA Spec Grav 1.021 <=1.030 06/30/2014 [facility] URINE AND STOOL UA Bacteria Moderate /HPF None Seen /HPF 06/30/2014 [facility] URINE AND STOOL UA Blood Negative (06/29/14 11:06 PM) Negative 06/30/2014 [facility] URINE AND STOOL UA Ketones Negative mg/dL Negative mg/dL 06/30/2014 [facility] URINE AND STOOL UA Bili Negative *NA* (06/29/14 11:06 PM) Negative 06/30/2014 [facility] URINE AND STOOL UA Urobilinogen 4.0 mg/dL 0.1 - 1.0 06/30/2014 [facility] URINE AND STOOL UA Leuk Est Small *ABN* (06/29/14 11:06 PM) Negative 06/30/2014 [facility] URINE AND STOOL UA Sq Epi Moderate /LPF Few /LPF 06/30/2014 [facility] URINE AND STOOL UA RBC 8 /HPF 0 - 2 06/30/2014 [facility] URINE AND STOOL UA Nitrite Positive *ABN* (06/29/14 11:06 PM) Negative 06/30/2014 [facility] URINE AND STOOL UA WBC 147 /HPF 0 - 5 06/30/2014 [facility] URINE AND STOOL UA Turbidity Clear (06/29/14 11:06 PM) Clear 06/30/2014 [facility] URINE AND STOOL UA Glucose Negative mg/dL Negative mg/dL 06/30/2014 [facility] CARDIAC ENZYMES BNP 44 pg/mL <=100 pg/mL 06/30/2014 7Interpretive Data: Elevated results are in line with increasing severity of congestive heart failure. Minor elevations between 100 and 300 may be seen with Myocardial Ischemia, Sodium retaining drugs, and compensated/treated heart failure. [facility] CHEM PANEL B/C Ratio 17 6 - 25 06/30/2014 [facility] CHEM PANEL Globulin 3.0 g/dL 2.0 - 4.0 06/30/2014 [facility] CHEM PANEL A/G Ratio 1.3 0.7 - 1.6 06/30/2014 [facility] CHEM PANEL Albumin Lvl 3.9 g/dL 3.5 - 5.0 06/30/2014 [facility] CHEM PANEL ALT 22 unit/L 0 - 65 06/30/2014 [facility] CHEM PANEL Bili Total 0.3 mg/dL 0.2 - 1.3 06/30/2014 [facility] CHEM PANEL AST 27 unit/L 0 - 37 06/30/2014 [facility] CHEM PANEL Alk Phos 94 unit/L 39 - 136 06/30/2014 [facility] CHEM PANEL Total Protein 6.9 g/dL 6.4 - 8.4 06/30/2014 [facility] HEMATOLOGY Eosinophils 0.7 % 0.0 - 4.0 06/30/2014 [facility] Segs-Bands # 6.6 K/CMM 1.5 - 8.1 06/30/2014 [facility] Basophils 0.3 % 0.0 - 1.0 06/30/2014 [facility] Lymphocytes # 1.3 K/CMM 1.0 - 5.5 06/30/2014 [facility] Monocytes # 0.2 K/CMM 0.0 - 0.8 06/30/2014 [facility] Eosinophils # 0.1 K/CMM 0.0 - 0.5 06/30/2014 [facility] Monocytes 2.0 % 2.0 - 12.0 06/30/2014 [facility] Lymphocytes 16.1 % 20.0 - 40.0 06/30/2014 [facility] Segs 80.9 % 45.0 - 75.0 06/30/2014 [facility] Chest 1view Chest 1view CHEST SINGLE VIEW (PORTABLE AP): HX: Chest pain COMPARISON: 05/17/2014 at 14: 19 FINDINGS: Interrupted wire sutures are present in the sternum. Calcific aortic atherosclerosis is noted in the thoracic arch. The lungs are free of consolidation or pleural effusion and the mediastinal silhouette is within normal limits of size. The visualized osseous structures are remarkable for degenerative spondylosis. IMPRESSION: No acute abnormality noted. SL: 12 06/29/2014 - - Read by: Tyler Barros MD Dictated Date/time: 06/29/14 23:02 Electronically Signed by: Tyler Barros MD 06/29/14 23:04 FINAL REPORT [facility] PT 13.3 s 12.0 - 14.7 05/17/2014 [facility] INR 1.01 0.85 - 1.17 05/17/2014 9Interpretive Data: RECOMMENDED RANGES FOR PROTIME INR: 2.0-3.0 for most medical and surgical thromboembolic states. 2.5-3.5 for artificial heart valves and recurrent embolism. INR SHOULD BE USED ONLY FOR PATIENTS ON STABLE ANTICOAGULANT THERAPY. [facility] Chest 1view Chest 1view CHEST RADIOGRAPH SINGLE VIEW INDICATION: PICC placement COMPARISON: Chest radiograph 04/27/2014 IMPRESSION: The distal end of a right PICC is superimposed over the expected region of the superior vena cava, in satisfactory position. No acute intrathoracic abnormalities are visualized. SL: 16 05/17/2014 - - Read by: Bukc Martínez MD Dictated Date/time: 05/17/14 14:28 Electronically Signed by: Buck Martínez MD 05/17/14 14:28 FINAL REPORT [facility]IC[facility] Vanco Tr 20.2 ug/ml 05/16/2014 7Interpretive Data: Therapeutic Range: Trough: 10 - 20 ug/mL Peak: 20 - 40 ug/mL Potential Toxicity: >80 ug/mL [facility] V[facility] Tr TND 0 05/16/2014 [facility] TOXICOLOGY Vanco Tr TND 1430 05/13/2014 [facility] TOXICOLOGY Vanco Tr 23.7 ug/ml 05/13/2014 8Interpretive Data: Therapeutic Range: Trough: 10 - 20 ug/mL Peak: 20 - 40 ug/mL Potential Toxicity: >80 ug/mL [facility] ELECTROLYTES AGAP 14.2 meq/L 10.0 - 20.0 05/13/2014 [facility] ELECTROLYTES eGFR 54 mL/min/1.73m2 05/13/2014 1Result Comment: The eGFR is calculated using the CKD-EPI formula. In most young, healthy individuals the eGFR will be >90 mL/min/1.73m2. The eGFR declines with age. An eGFR of 60-89 may be normal in some populations, particularly the elderly, for whom the CKD-EPI formula has not been extensively validated. Use of the eGFR is not recommended in the following populations: Individuals with unstable creatinine concentrations, including patients and those with serious co-morbid conditions. Patients with extremes in muscle mass or diet. The data above are obtained from the National Kidney Disease Education Program (NKDEP) which additionally recommends that when the eGFR is used in patients with extremes of body mass index for purposes of drug dosing, the eGFR should be multiplied by the estimated BMI. [facility] ELECTROLYTES Creatinine Lvl 1.0 mg/dL 0.5 - 1.4 05/13/2014 [facility] ELECTROLYTES Calcium Lvl 9.0 mg/dL 8.5 - 10.5 05/13/2014 [facility] ELECTROLYTES CO2 27 meq/L 24 - 32 05/13/2014 [facility] ELECTROLYTES Glucose Lvl 96 mg/dL 70 - 99 05/13/2014 4Interpretive Data: Adult reference range values reflect the clinical guidelines of the [place] [employer]. [facility] ELECTROLYTES BUN 16 mg/dL 7 - 22 05/13/2014 [facility] ELECTROLYTES Chloride Lvl 102 meq/L 95 - 109 05/13/2014 [facility] ELECTROLYTES Sodium Lvl 139 meq/L 135 - 145 05/13/2014 [facility] ELECTROLYTES Potassium Lvl 4.2 meq/L 3.5 - 5.1 05/13/2014 [facility] HEMATOLOGY Hgb 9.5 g/dL 12.0 - 16.0 05/13/2014 [facility] HEMATOLOGY RBC 3.48 M/CMM 4.20 - 5.40 05/13/2014 [facility] HEMATOLOGY Hct 29.1 % 36.0 - 48.0 05/13/2014 [facility] HEMATOLOGY WBC 3.7 K/CMM 3.7 - 10.4 05/13/2014 [facility] MCHC 32.6 g/dL 32.0 - 36.0 05/13/2014 [facility] HEMATOLOGY MPV 7.1 fL 7.4 - 10.4 05/13/2014 [facility] Platelet 171 K/CMM 133 - 450 05/13/2014 [facility] RDW 14.9 % 11.5 - 14.5 05/13/2014 [facility] MCH 27.2 pg 27.0 - 31.0 05/13/2014 [facility] MCV 83.6 fL 80.0 - 98.0 05/13/2014 [facility] CHEM PANEL BUN 22 mg/dL 7 - 22 05/12/2014 [facility] CHEM PANEL Sodium Lvl 139 meq/L 135 - 145 05/12/2014 [facility] CHEM PANEL Creatinine Lvl 1.2 mg/dL 0.5 - 1.4 05/12/2014 [facility] CHEM PANEL Potassium Lvl 4.3 meq/L 3.5 - 5.1 05/12/2014 [facility] CHEM PANEL Chloride Lvl 103 meq/L 95 - 109 05/12/2014 [facility] CHEM PANEL CO2 27 meq/L 24 - 32 05/12/2014 [facility] CHEM PANEL Calcium Lvl 8.4 mg/dL 8.5 - 10.5 05/12/2014 [facility] CHEM PANEL Glucose Lvl 125 mg/dL 70 - 99 05/12/2014 5Interpretive Data: Adult reference range values reflect the clinical guidelines of the [place] [employer]. [facility] CHEM PANEL eGFR 43 mL/min/1.73m2 05/12/2014 2Result Comment: The eGFR is calculated using the CKD-EPI formula. In most young, healthy individuals the eGFR will be >90 mL/min/1.73m2. The eGFR declines with age. An eGFR of 60-89 may be normal in some populations, particularly the elderly, for whom the CKD-EPI formula has not been extensively validated. Use of the eGFR is not recommended in the following populations: Individuals with unstable creatinine concentrations, including patients and those with serious co-morbid conditions. Patients with extremes in muscle mass or diet. The data above are obtained from the National Kidney Disease Education Program (NKDEP) which additionally recommends that when the eGFR is used in patients with extremes of body mass index for purposes of drug dosing, the eGFR should be multiplied by the estimated BMI. [facility] CHEM PANEL AGAP 13.3 meq/L 10.0 - 20.0 05/12/2014 [facility] HEMATOLOGY MPV 7.4 fL 7.4 - 10.4 05/12/2014 [facility] MCHC 32.6 g/dL 32.0 - 36.0 05/12/2014 [facility] MCH 27.4 pg 27.0 - 31.0 05/12/2014 [facility] Platelet 159 K/CMM 133 - 450 05/12/2014 [facility] RDW 15.6 % 11.5 - 14.5 05/12/2014 [facility] MCV 84.1 fL 80.0 - 98.0 05/12/2014 [facility] Hgb 9.8 g/dL 12.0 - 16.0 05/12/2014 [facility] RBC 3.58 M/CMM 4.20 - 5.40 05/12/2014 [facility] Hct 30.1 % 36.0 - 48.0 05/12/2014 [facility] WBC 4.7 K/CMM 3.7 - 10.4 05/12/2014 [facility] CHEM PANEL Creatinine Lvl 1.4 mg/dL 0.5 - 1.4 05/11/2014 [facility] CHEM PANEL eGFR 36 mL/min/1.73m2 05/11/2014 3Result Comment: The eGFR is calculated using the CKD-EPI formula. In most young, healthy individuals the eGFR will be >90 mL/min/1.73m2. The eGFR declines with age. An eGFR of 60-89 may be normal in some populations, particularly the elderly, for whom the CKD-EPI formula has not been extensively validated. Use of the eGFR is not recommended in the following populations: Individuals with unstable creatinine concentrations, including patients and those with serious co-morbid conditions. Patients with extremes in muscle mass or diet. The data above are obtained from the National Kidney Disease Education Program (NKDEP) which additionally recommends that when the eGFR is used in patients with extremes of body mass index for purposes of drug dosing, the eGFR should be multiplied by the estimated BMI. [facility] HEMATOLOGY PTT 28.6 s 22.9 - 35.8 05/11/2014 10Interpretive Data: Heparin Therapeutic Range: 57 - 92 Seconds [facility] HEMATOLOGY Platelet 160 K/CMM 133 - 450 05/11/2014 [facility] ELECTROLYTES Potassium Lvl 4.3 meq/L 3.5 - 5.1 05/11/2014 [facility] ELECTROLYTES BUN 37 mg/dL 7 - 22 05/11/2014 [facility] ELECTROLYTES Sodium Lvl 135 meq/L 135 - 145 05/11/2014 [facility] ELECTROLYTES Glucose Lvl 156 mg/dL 70 - 99 05/11/2014 6Interpretive Data: Adult reference range values reflect the clinical guidelines of the [place] [employer]. [facility] ELECTROLYTES CO2 22 meq/L 24 - 32 05/11/2014 [facility] ELECTROLYTES Chloride Lvl 102 meq/L 95 - 109 05/11/2014 [facility] ELECTROLYTES Calcium Lvl 8.5 mg/dL 8.5 - 10.5 05/11/2014 [facility] ELECTROLYTES AGAP 15.3 meq/L 10.0 - 20.0 05/11/2014 [facility] Lymphocytes 27.9 % 20.0 - 40.0 05/11/2014 [facility] Monocytes 7.3 % 2.0 - 12.0 05/11/2014 [facility] HEMATOLOGY Eosinophils 0.9 % 0.0 - 4.0 05/11/2014 [facility] HEMATOLOGY Basophils 0.7 % 0.0 - 1.0 05/11/2014 [facility] HEMATOLOGY Segs 63.2 % 45.0 - 75.0 05/11/2014 [facility] HEMATOLOGY Lymphocytes # 1.7 K/CMM 1.0 - 5.5 05/11/2014 [facility] HEMATOLOGY Eosinophils # 0.1 K/CMM 0.0 - 0.5 05/11/2014 [facility] Segs-Bands # 3.8 K/CMM 1.5 - 8.1 05/11/2014 [facility] Monocytes # 0.4 K/CMM 0.0 - 0.8 05/11/2014 [facility] MPV 7.3 fL 7.4 - 10.4 05/11/2014 [facility] Hct 31.5 % 36.0 - 48.0 05/11/2014 [facility] MCHC 32.3 g/dL 32.0 - 36.0 05/11/2014 [facility] MCV 85.1 fL 80.0 - 98.0 05/11/2014 [facility] Hgb 10.2 g/dL 12.0 - 16.0 05/11/2014 [facility] MCH 27.5 pg 27.0 - 31.0 05/11/2014 [facility] RDW 15.6 % 11.5 - 14.5 05/11/2014 [facility] RBC 3.70 M/CMM 4.20 - 5.40 05/11/2014 [facility] WBC 6.1 K/CMM 3.7 - 10.4 05/11/2014 [facility] ELECTROLYTES AGAP 6.0 meq/L 10.0 - 20.0 05/06/2014 [facility] ELECTROLYTES Calcium Lvl 8.6 mg/dL 8.5 - 10.5 05/06/2014 [facility] ELECTROLYTES Chloride Lvl 103 meq/L 95 - 109 05/06/2014 [facility] ELECTROLYTES Potassium Lvl 4.0 meq/L 3.5 - 5.1 05/06/2014 [facility] ELECTROLYTES CO2 34 meq/L 24 - 32 05/06/2014 [facility] ELECTROLYTES eGFR 54 mL/min/1.73m2 05/06/2014 1Result Comment: The eGFR is calculated using the CKD-EPI formula. In most young, healthy individuals the eGFR will be >90 mL/min/1.73m2. The eGFR declines with age. An eGFR of 60-89 may be normal in some populations, particularly the elderly, for whom the CKD-EPI formula has not been extensively validated. Use of the eGFR is not recommended in the following populations: Individuals with unstable creatinine concentrations, including patients and those with serious co-morbid conditions. Patients with extremes in muscle mass or diet. The data above are obtained from the National Kidney Disease Education Program (NKDEP) which additionally recommends that when the eGFR is used in patients with extremes of body mass index for purposes of drug dosing, the eGFR should be multiplied by the estimated BMI. [facility] ELECTROLYTES Glucose Lvl 117 mg/dL 70 - 99 05/06/2014 4Interpretive Data: Adult reference range values reflect the clinical guidelines of the [place] [employer]. [facility] ELECTROLYTES Creatinine Lvl 1.0 mg/dL 0.5 - 1.4 05/06/2014 [facility] ELECTROLYTES Sodium Lvl 139 meq/L 135 - 145 05/06/2014 [facility] ELECTROLYTES BUN 9 mg/dL 7 - 22 05/06/2014 [facility] HEMATOLOGY MPV 6.9 fL 7.4 - 10.4 05/06/2014 [facility] Platelet 161 K/CMM 133 - 450 05/06/2014 [facility] HEMATOLOGY WBC 3.5 K/CMM 3.7 - 10.4 05/06/2014 [facility] MCH 27.2 pg 27.0 - 31.0 05/06/2014 [facility] MCV 84.1 fL 80.0 - 98.0 05/06/2014 [facility] RDW 15.1 % 11.5 - 14.5 05/06/2014 [facility] MCHC 32.4 g/dL 32.0 - 36.0 05/06/2014 [facility] RBC 3.29 M/CMM 4.20 - 5.40 05/06/2014 [facility] Hgb 9.0 g/dL 12.0 - 16.0 05/06/2014 [facility] Hct 27.7 % 36.0 - 48.0 05/06/2014 [facility] TOXICOLOGY Vanco Tr TND 0230 05/06/2014 [facility] TOXICOLOGY Vanco Tr 9.6 ug/ml 05/06/2014 7Interpretive Data: Therapeutic Range: Trough: 10 - 20 ug/mL Peak: 20 - 40 ug/mL Potential Toxicity: >80 ug/mL [facility] CHEM PANEL eGFR 61 mL/min/1.73m2 05/05/2014 2Result Comment: The eGFR is calculated using the CKD-EPI formula. In most young, healthy individuals the eGFR will be >90 mL/min/1.73m2. The eGFR declines with age. An eGFR of 60-89 may be normal in some populations, particularly the elderly, for whom the CKD-EPI formula has not been extensively validated. Use of the eGFR is not recommended in the following populations: Individuals with unstable creatinine concentrations, including patients and those with serious co-morbid conditions. Patients with extremes in muscle mass or diet. The data above are obtained from the National Kidney Disease Education Program (NKDEP) which additionally recommends that when the eGFR is used in patients with extremes of body mass index for purposes of drug dosing, the eGFR should be multiplied by the estimated BMI. [facility] CHEM PANEL Calcium Lvl 8.5 mg/dL 8.5 - 10.5 05/05/2014 [facility] CHEM PANEL CO2 31 meq/L 24 - 32 05/05/2014 [facility] CHEM PANEL Chloride Lvl 105 meq/L 95 - 109 05/05/2014 [facility] CHEM PANEL Sodium Lvl 142 meq/L 135 - 145 05/05/2014 [facility] CHEM PANEL Creatinine Lvl 0.9 mg/dL 0.5 - 1.4 05/05/2014 [facility] CHEM PANEL Potassium Lvl 4.3 meq/L 3.5 - 5.1 05/05/2014 [facility] CHEM PANEL Glucose Lvl 136 mg/dL 70 - 99 05/05/2014 5Interpretive Data: Adult reference range values reflect the clinical guidelines of the [place] [employer]. [facility] CHEM PANEL BUN 10 mg/dL 7 - 22 05/05/2014 [facility] CHEM PANEL AGAP 10.3 meq/L 10.0 - 20.0 05/05/2014 [facility] HEMATOLOGY Platelet 146 K/CMM 133 - 450 05/05/2014 [facility] HEMATOLOGY MPV 7.3 fL 7.4 - 10.4 05/05/2014 [facility] HEMATOLOGY RDW 14.9 % 11.5 - 14.5 05/05/2014 [facility] HEMATOLOGY MCHC 32.9 g/dL 32.0 - 36.0 05/05/2014 [facility] MCH 28.0 pg 27.0 - 31.0 05/05/2014 [facility] Hgb 9.1 g/dL 12.0 - 16.0 05/05/2014 [facility] MCV 85.3 fL 80.0 - 98.0 05/05/2014 [facility] Hct 27.5 % 36.0 - 48.0 05/05/2014 [facility] HEMATOLOGY RBC 3.23 M/CMM 4.20 - 5.40 05/05/2014 [facility] HEMATOLOGY WBC 3.5 K/CMM 3.7 - 10.4 05/05/2014 [facility] CHEM PANEL eGFR 48 mL/min/1.73m2 05/04/2014 3Result Comment: The eGFR is calculated using the CKD-EPI formula. In most young, healthy individuals the eGFR will be >90 mL/min/1.73m2. The eGFR declines with age. An eGFR of 60-89 may be normal in some populations, particularly the elderly, for whom the CKD-EPI formula has not been extensively validated. Use of the eGFR is not recommended in the following populations: Individuals with unstable creatinine concentrations, including patients and those with serious co-morbid conditions. Patients with extremes in muscle mass or diet. The data above are obtained from the National Kidney Disease Education Program (NKDEP) which additionally recommends that when the eGFR is used in patients with extremes of body mass index for purposes of drug dosing, the eGFR should be multiplied by the estimated BMI. [facility] CHEM PANEL Chloride Lvl 104 meq/L 95 - 109 05/04/2014 [facility] CHEM PANEL CO2 31 meq/L 24 - 32 05/04/2014 [facility] CHEM PANEL Calcium Lvl 8.7 mg/dL 8.5 - 10.5 05/04/2014 [facility] CHEM PANEL Potassium Lvl 4.4 meq/L 3.5 - 5.1 05/04/2014 [facility] CHEM PANEL Sodium Lvl 140 meq/L 135 - 145 05/04/2014 [facility] CHEM PANEL BUN 11 mg/dL 7 - 22 05/04/2014 [facility] CHEM PANEL Glucose Lvl 143 mg/dL 70 - 99 05/04/2014 6Interpretive Data: Adult reference range values reflect the clinical guidelines of the [place] [employer]. [facility] CHEM PANEL Creatinine Lvl 1.1 mg/dL 0.5 - 1.4 05/04/2014 [facility] CHEM PANEL AGAP 9.4 meq/L 10.0 - 20.0 05/04/2014 [facility] MPV 7.5 fL 7.4 - 10.4 05/04/2014 [facility] WBC 3.3 K/CMM 3.7 - 10.4 05/04/2014 [facility] RBC 3.54 M/CMM 4.20 - 5.40 05/04/2014 [facility] Hct 30.2 % 36.0 - 48.0 05/04/2014 [facility] Hgb 10.0 g/dL 12.0 - 16.0 05/04/2014 [facility] MCH 28.3 pg 27.0 - 31.0 05/04/2014 [facility] MCV 85.2 fL 80.0 - 98.0 05/04/2014 [facility] MCHC 33.2 g/dL 32.0 - 36.0 05/04/2014 [facility] HEMATOLOGY RDW 15.4 % 11.5 - 14.5 05/04/2014 [facility] HEMATOLOGY Platelet 132 K/CMM 133 - 450 05/04/2014 [facility] Ext Lower Venous Doppler Bilat US Ext Lower Venous Doppler Bilat US Bilateral Lower Extremity Doppler. History: Hyperlipidemia Comparison: None. Findings: Grayscale, color Doppler, and spectral wave form analysis was performed of the bilateral lower extremities. There is normal compressibility and wave form throughout the lower extremities with adequate response to augmentation. Impression: 1. Negative for deep venous thrombosis of the lower extremities bilaterally. SL: 14 05/03/2014 - - Read by: Richard Major MD Dictated Date/time: 05/03/14 17:50 Electronically Signed by: Richard Major MD 05/03/14 17:51 FINAL REPORT [facility] CHEM PANEL Lactic Acid Lvl 1.0 mMol/L 0.5 - 2.2 05/03/2014 [facility] CHEM PANEL Bili Total 0.5 mg/dL 0.2 - 1.3 05/03/2014 [facility] CHEM PANEL Total Protein 6.5 g/dL 6.4 - 8.4 05/03/2014 [facility] CHEM PANEL Albumin Lvl 3.6 g/dL 3.5 - 5.0 05/03/2014 [facility] CHEM PANEL AST 30 unit/L 0 - 37 05/03/2014 [facility] CHEM PANEL Alk Phos 84 unit/L 39 - 136 05/03/2014 [facility] CHEM PANEL ALT 30 unit/L 0 - 65 05/03/2014 [facility] CHEM PANEL Globulin 2.9 g/dL 2.0 - 4.0 05/03/2014 [facility] CHEM PANEL A/G Ratio 1.2 0.7 - 1.6 05/03/2014 [facility] CHEM PANEL B/C Ratio 22 6 - 25 05/03/2014 [facility] HEMATOLOGY Eosinophils 0.8 % 0.0 - 4.0 05/03/2014 [facility] HEMATOLOGY Basophils 0.3 % 0.0 - 1.0 05/03/2014 [facility] HEMATOLOGY Segs-Bands # 5.2 K/CMM 1.5 - 8.1 05/03/2014 [facility] HEMATOLOGY Lymphocytes # 1.9 K/CMM 1.0 - 5.5 05/03/2014 [facility] HEMATOLOGY Eosinophils # 0.1 K/CMM 0.0 - 0.5 05/03/2014 [facility] HEMATOLOGY Monocytes # 0.5 K/CMM 0.0 - 0.8 05/03/2014 [facility] HEMATOLOGY Monocytes 6.0 % 2.0 - 12.0 05/03/2014 [facility] HEMATOLOGY Lymphocytes 24.3 % 20.0 - 40.0 05/03/2014 [facility] HEMATOLOGY Segs 68.6 % 45.0 - 75.0 05/03/2014 [facility] Chest 2 views Chest 2 views PA and lateral: Median sternotomy wires are noted. Calcification in the aortic arch is seen. The cardiomediastinal silhouette, pulmonary vasculature and brittany are otherwise within normal limits. The lungs and pleural spaces are clear. There are no acute osseous abnormalities. There is no significant change compared to 04/01/2014. IMPRESSION: No acute radiographic abnormality in the chest. SL:13 04/27/2014 - - Read by: Jeffery Combs MD Dictated Date/time: 04/27/14 12:58 Electronically Signed by: Jeffery Combs MD 04/27/14 12:59 FINAL REPORT [facility] CHEM PANEL eGFR 48 mL/min/1.73m2 04/06/2014 1Result Comment: The eGFR is calculated using the CKD-EPI formula. In most young, healthy individuals the eGFR will be >90 mL/min/1.73m2. The eGFR declines with age. An eGFR of 60-89 may be normal in some populations, particularly the elderly, for whom the CKD-EPI formula has not been extensively validated. Use of the eGFR is not recommended in the following populations: Individuals with unstable creatinine concentrations, including patients and those with serious co-morbid conditions. Patients with extremes in muscle mass or diet. The data above are obtained from the National Kidney Disease Education Program (NKDEP) which additionally recommends that when the eGFR is used in patients with extremes of body mass index for purposes of drug dosing, the eGFR should be multiplied by the estimated BMI. [facility] CHEM PANEL BUN 10 mg/dL 7 - 22 04/06/2014 [facility] CHEM PANEL Glucose Lvl 196 mg/dL 70 - 99 04/06/2014 4Interpretive Data: Adult reference range values reflect the clinical guidelines of the [place] [employer]. [facility] CHEM PANEL Chloride Lvl 99 meq/L 95 - 109 04/06/2014 [facility] CHEM PANEL Potassium Lvl 3.5 meq/L 3.5 - 5.1 04/06/2014 [facility] CHEM PANEL Sodium Lvl 138 meq/L 135 - 145 04/06/2014 [facility] CHEM PANEL Creatinine Lvl 1.1 mg/dL 0.5 - 1.4 04/06/2014 [facility] CHEM PANEL CO2 28 meq/L 24 - 32 04/06/2014 [facility] CHEM PANEL Calcium Lvl 9.4 mg/dL 8.5 - 10.5 04/06/2014 [facility] CHEM PANEL AGAP 14.5 meq/L 10.0 - 20.0 04/06/2014 [facility] HEMATOLOGY Eosinophils # 0.1 K/CMM 0.0 - 0.5 04/06/2014 [facility] HEMATOLOGY Monocytes # 0.4 K/CMM 0.0 - 0.8 04/06/2014 [facility] HEMATOLOGY Basophils 1.0 % 0.0 - 1.0 04/06/2014 [facility] HEMATOLOGY Segs-Bands # 2.4 K/CMM 1.5 - 8.1 04/06/2014 [facility] HEMATOLOGY Lymphocytes # 1.3 K/CMM 1.0 - 5.5 04/06/2014 [facility] HEMATOLOGY Monocytes 9.6 % 2.0 - 12.0 04/06/2014 [facility] HEMATOLOGY Eosinophils 2.0 % 0.0 - 4.0 04/06/2014 [facility] HEMATOLOGY Segs 56.0 % 45.0 - 75.0 04/06/2014 [facility] HEMATOLOGY Lymphocytes 31.4 % 20.0 - 40.0 04/06/2014 [facility] HEMATOLOGY MPV 6.7 fL 7.4 - 10.4 04/06/2014 [facility] HEMATOLOGY Platelet 237 K/CMM 133 - 450 04/06/2014 [facility] HEMATOLOGY RDW 13.8 % 11.5 - 14.5 04/06/2014 [facility] HEMATOLOGY MCHC 32.8 g/dL 32.0 - 36.0 04/06/2014 [facility] HEMATOLOGY MCH 27.7 pg 27.0 - 31.0 04/06/2014 [facility] HEMATOLOGY Hgb 11.0 g/dL 12.0 - 16.0 04/06/2014 [facility] HEMATOLOGY Hct 33.6 % 36.0 - 48.0 04/06/2014 [facility] HEMATOLOGY MCV 84.2 fL 81.0 - 99.0 04/06/2014 [facility] HEMATOLOGY WBC 4.2 K/CMM 3.7 - 10.4 04/06/2014 [facility] HEMATOLOGY RBC 3.99 M/CMM 4.20 - 5.40 04/06/2014 [facility] CHEM PANEL eGFR 54 mL/min/1.73m2 04/05/2014 2Result Comment: The eGFR is calculated using the CKD-EPI formula. In most young, healthy individuals the eGFR will be >90 mL/min/1.73m2. The eGFR declines with age. An eGFR of 60-89 may be normal in some populations, particularly the elderly, for whom the CKD-EPI formula has not been extensively validated. Use of the eGFR is not recommended in the following populations: Individuals with unstable creatinine concentrations, including patients and those with serious co-morbid conditions. Patients with extremes in muscle mass or diet. The data above are obtained from the National Kidney Disease Education Program (NKDEP) which additionally recommends that when the eGFR is used in patients with extremes of body mass index for purposes of drug dosing, the eGFR should be multiplied by the estimated BMI. [facility] CHEM PANEL Potassium Lvl 3.7 meq/L 3.5 - 5.1 04/05/2014 [facility] CHEM PANEL Chloride Lvl 98 meq/L 95 - 109 04/05/2014 [facility] CHEM PANEL Sodium Lvl 135 meq/L 135 - 145 04/05/2014 [facility] CHEM PANEL CO2 31 meq/L 24 - 32 04/05/2014 [facility] CHEM PANEL Calcium Lvl 9.3 mg/dL 8.5 - 10.5 04/05/2014 [facility] CHEM PANEL Creatinine Lvl 1.0 mg/dL 0.5 - 1.4 04/05/2014 [facility] CHEM PANEL BUN 7 mg/dL 7 - 22 04/05/2014 [facility] CHEM PANEL Glucose Lvl 206 mg/dL 70 - 99 04/05/2014 5Interpretive Data: Adult reference range values reflect the clinical guidelines of the [place] [employer]. [facility] CHEM PANEL AGAP 9.7 meq/L 10.0 - 20.0 04/05/2014 [facility] HEMATOLOGY Basophils 1.2 % 0.0 - 1.0 04/05/2014 [facility] HEMATOLOGY Eosinophils 1.2 % 0.0 - 4.0 04/05/2014 [facility] HEMATOLOGY Lymphocytes 26.7 % 20.0 - 40.0 04/05/2014 [facility] HEMATOLOGY Segs 62.2 % 45.0 - 75.0 04/05/2014 [facility] Monocytes 8.7 % 2.0 - 12.0 04/05/2014 [facility] Monocytes # 0.4 K/CMM 0.0 - 0.8 04/05/2014 [facility] Lymphocytes # 1.2 K/CMM 1.0 - 5.5 04/05/2014 [facility] Segs-Bands # 2.9 K/CMM 1.5 - 8.1 04/05/2014 [facility] Eosinophils # 0.1 K/CMM 0.0 - 0.5 04/05/2014 [facility] Basophils # 0.1 K/CMM 0.0 - 0.2 04/05/2014 [facility] Platelet 232 K/CMM 133 - 450 04/05/2014 [facility] MPV 7.0 fL 7.4 - 10.4 04/05/2014 [facility] WBC 4.7 K/CMM 3.7 - 10.4 04/05/2014 [facility] MCHC 32.4 g/dL 32.0 - 36.0 04/05/2014 [facility] RDW 13.7 % 11.5 - 14.5 04/05/2014 [facility] MCV 85.3 fL 81.0 - 99.0 04/05/2014 [facility] MCH 27.6 pg 27.0 - 31.0 04/05/2014 [facility] Hct 32.8 % 36.0 - 48.0 04/05/2014 [facility] RBC 3.85 M/CMM 4.20 - 5.40 04/05/2014 [facility] Hgb 10.6 g/dL 12.0 - 16.0 04/05/2014 [facility] ELECTROLYTES AGAP 8.0 meq/L 10.0 - 20.0 04/03/2014 [facility] ELECTROLYTES eGFR 48 mL/min/1.73m2 04/03/2014 3Result Comment: The eGFR is calculated using the CKD-EPI formula. In most young, healthy individuals the eGFR will be >90 mL/min/1.73m2. The eGFR declines with age. An eGFR of 60-89 may be normal in some populations, particularly the elderly, for whom the CKD-EPI formula has not been extensively validated. Use of the eGFR is not recommended in the following populations: Individuals with unstable creatinine concentrations, including patients and those with serious co-morbid conditions. Patients with extremes in muscle mass or diet. The data above are obtained from the National Kidney Disease Education Program (NKDEP) which additionally recommends that when the eGFR is used in patients with extremes of body mass index for purposes of drug dosing, the eGFR should be multiplied by the estimated BMI. [facility] ELECTROLYTES Calcium Lvl 8.4 mg/dL 8.5 - 10.5 04/03/2014 [facility] ELECTROLYTES Creatinine Lvl 1.1 mg/dL 0.5 - 1.4 04/03/2014 [facility] ELECTROLYTES Glucose Lvl 189 mg/dL 70 - 99 04/03/2014 6Interpretive Data: Adult reference range values reflect the clinical guidelines of the [place] [employer]. [facility] ELECTROLYTES BUN 10 mg/dL 7 - 22 04/03/2014 [facility] ELECTROLYTES Chloride Lvl 106 meq/L 95 - 109 04/03/2014 [facility] ELECTROLYTES Potassium Lvl 4.0 meq/L 3.5 - 5.1 04/03/2014 [facility] ELECTROLYTES Sodium Lvl 141 meq/L 135 - 145 04/03/2014 [facility] ELECTROLYTES CO2 31 meq/L 24 - 32 04/03/2014 [facility] Platelet 182 K/CMM 133 - 450 04/03/2014 [facility] MPV 6.7 fL 7.4 - 10.4 04/03/2014 [facility] RBC 3.11 M/CMM 4.20 - 5.40 04/03/2014 [facility] Hgb 8.7 g/dL 12.0 - 16.0 04/03/2014 [facility] WBC 4.0 K/CMM 3.7 - 10.4 04/03/2014 [facility] MCV 86.7 fL 81.0 - 99.0 04/03/2014 [facility] MCH 28.1 pg 27.0 - 31.0 04/03/2014 [facility] MCHC 32.4 g/dL 32.0 - 36.0 04/03/2014 [facility] RDW 13.7 % 11.5 - 14.5 04/03/2014 [facility] Hct 26.9 % 36.0 - 48.0 04/03/2014 [facility] Monocytes # 0.3 K/CMM 0.0 - 0.8 04/03/2014 [facility] Eosinophils # 0.1 K/CMM 0.0 - 0.5 04/03/2014 [facility] HEMATOLOGY Segs 62.3 % 45.0 - 75.0 04/03/2014 [facility] HEMATOLOGY Eosinophils 2.4 % 0.0 - 4.0 04/03/2014 [facility] HEMATOLOGY Lymphocytes 26.8 % 20.0 - 40.0 04/03/2014 [facility] HEMATOLOGY Monocytes 8.1 % 2.0 - 12.0 04/03/2014 [facility] HEMATOLOGY Lymphocytes # 1.1 K/CMM 1.0 - 5.5 04/03/2014 [facility] HEMATOLOGY Basophils 0.4 % 0.0 - 1.0 04/03/2014 [facility] HEMATOLOGY Segs-Bands # 2.5 K/CMM 1.5 - 8.1 04/03/2014 [facility] HEMATOLOGY PTT 33.7 s 22.9 - 35.8 04/02/2014 8Interpretive Data: Heparin Therapeutic Range: 57 - 92 Seconds [facility] HEMATOLOGY Sed Rate 44 mm/h 0 - 20 04/02/2014 [facility] IMMUNOLOGY VLADISLAV Negative (04/02/14 11:22 AM) Negative 04/02/2014 [facility] CARDIAC ENZYMES CK MB null 0.5 - 3.6 04/01/2014 [facility] CARDIAC ENZYMES Total CK 85 unit/L 12 - 191 04/01/2014 [facility] CARDIAC ENZYMES Troponin-I null 0.00 - 0.40 04/01/2014 [facility] CARDIAC ENZYMES CK MB Index null 0.0 - 2.5 04/01/2014 [facility] CHEM PANEL Total Protein 6.4 g/dL 6.4 - 8.4 04/01/2014 [facility] CHEM PANEL Albumin Lvl 3.2 g/dL 3.5 - 5.0 04/01/2014 [facility] CHEM PANEL ALT 20 unit/L 0 - 65 04/01/2014 [facility] CHEM PANEL AST 20 unit/L 0 - 37 04/01/2014 [facility] CHEM PANEL Globulin 3.2 g/dL 2.0 - 4.0 04/01/2014 [facility] CHEM PANEL A/G Ratio 1.0 0.7 - 1.6 04/01/2014 [facility] CHEM PANEL Alk Phos 86 unit/L 39 - 136 04/01/2014 [facility] CHEM PANEL Bili Total 0.4 mg/dL 0.2 - 1.3 04/01/2014 [facility] CHEM PANEL B/C Ratio 12 6 - 25 04/01/2014 [facility] CHEM PANEL Lactic Acid Lvl 0.9 mMol/L 0.5 - 2.2 04/01/2014 [facility] URINE AND STOOL UA Color [place] 04/01/2014 [facility] URINE AND STOOL UA Urobilinogen <=1.0 mg/dL 0.1 - 1.0 04/01/2014 [facility] URINE AND STOOL UA [place] Yeast Few /HPF None Seen /HPF 04/01/2014 [facility] URINE AND STOOL UA Hyal Cast 58 /LPF 0 - 2 04/01/2014 [facility] URINE AND STOOL UA RBC 2 /HPF 0 - 2 04/01/2014 [facility] URINE AND STOOL UA Bacteria Occasional /HPF None Seen /HPF 04/01/2014 [facility] URINE AND STOOL UA Mucus Few /LPF None Seen /LPF 04/01/2014 [facility] URINE AND STOOL UA Sq Epi Occasional /LPF Few /LPF 04/01/2014 [facility] URINE AND STOOL UA WBC 23 /HPF 0 - 5 04/01/2014 [facility] URINE AND STOOL UA Glucose 50 mg/dL Negative mg/dL 04/01/2014 [facility] URINE AND STOOL UA Turbidity Slight *ABN* (04/01/14 4:55 PM) Clear 04/01/2014 [facility] URINE AND STOOL UA Spec Grav 1.019 <=1.030 04/01/2014 [facility] URINE AND STOOL UA pH 5.0 5.0 - 8.0 04/01/2014 [facility] URINE AND STOOL UA Protein Negative mg/dL Negative mg/dL 04/01/2014 [facility] URINE AND STOOL UA Blood Negative (04/01/14 4:55 PM) Negative 04/01/2014 [facility] URINE AND STOOL UA Bili Negative *NA* (04/01/14 4:55 PM) Negative 04/01/2014 [facility] URINE AND STOOL UA Nitrite Negative (04/01/14 4:55 PM) Negative 04/01/2014 [facility] URINE AND STOOL UA Ketones Negative mg/dL Negative mg/dL 04/01/2014 [facility] URINE AND STOOL UA Leuk Est Small *ABN* (04/01/14 4:55 PM) Negative 04/01/2014 [facility] HEMATOLOGY PTT 26.6 s 22.9 - 35.8 04/01/2014 9Interpretive Data: Heparin Therapeutic Range: 57 - 92 Seconds [facility] HEMATOLOGY INR 1.07 0.85 - 1.17 04/01/2014 7Interpretive Data: RECOMMENDED RANGES FOR PROTIME INR: 2.0-3.0 for most medical and surgical thromboembolic states. 2.5-3.5 for artificial heart valves and recurrent embolism. INR SHOULD BE USED ONLY FOR PATIENTS ON STABLE ANTICOAGULANT THERAPY. [facility] HEMATOLOGY PT 13.8 s 12.0 - 14.7 04/01/2014 [facility] Chest 1view Chest 1view Examination: Chest x-ray, single view History: PICC Line Placement Comparison: 03/09/2014 Findings: Right-sided PICC line is seen with tip in SVC. 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 Cardiac silhouette is mildly prominent. Lungs are without consolidation or congestion. There is no pleural effusion or pneumothorax. The osseous structures are without focal abnormality. IMPRESSION: Right-sided PICC line with tip in SVC. No acute disease. SL: 12 04/01/2014 - - Read by: Richard Major MD Dictated Date/time: 04/01/14 17:39 Electronically Signed by: Richard Major MD 04/01/14 17:39 FINAL REPORT [facility] HEMATOLOGY PT 13.1 s 12.0 - 14.7 03/09/2014 [facility] HEMATOLOGY INR 1.00 0.85 - 1.17 03/09/2014 8Interpretive Data: RECOMMENDED RANGES FOR PROTIME INR: 2.0-3.0 for most medical and surgical thromboembolic states. 2.5-3.5 for artificial heart valves and recurrent embolism. INR SHOULD BE USED ONLY FOR PATIENTS ON STABLE ANTICOAGULANT THERAPY. [facility] Chest 1view Chest 1view PROCEDURE: Chest 1view REASON FOR EXAM: STAT portable Chest X-ray post successful insertion. Indication: Correct Line Placement. CLINICAL INFORMATION PICC Line Placement COMPARISON: 02/2014. September 2013. 04/2013. 03/2012. Right PICC line tip is in the lower superior vena cava. The patient is post median sternotomy. Enlargement of the cardiac silhouette is secondary to cardiomegaly or pericardial effusion. No effusions or pneumothorax. Mild congestive change. SL: 13 03/09/2014 - - Read by: Edu Ferrer MD Dictated Date/time: 03/09/14 12:47 Electronically Signed by: Edu Ferrer MD 03/09/14 12:53 FINAL REPORT [facility] ELECTROLYTES AGAP 8.2 meq/L 10.0 - 20.0 03/08/2014 [facility] ELECTROLYTES Glucose Lvl 102 mg/dL 70 - 99 03/08/2014 4Interpretive Data: Adult reference range values reflect the clinical guidelines of the [place] [employer]. [facility] ELECTROLYTES BUN 21 mg/dL 7 - 22 03/08/2014 [facility] ELECTROLYTES Creatinine Lvl 1.0 mg/dL 0.5 - 1.4 03/08/2014 [facility] ELECTROLYTES Sodium Lvl 139 meq/L 135 - 145 03/08/2014 [facility] ELECTROLYTES Potassium Lvl 4.2 meq/L 3.5 - 5.1 03/08/2014 [facility] ELECTROLYTES Chloride Lvl 104 meq/L 95 - 109 03/08/2014 [facility] ELECTROLYTES CO2 31 meq/L 24 - 32 03/08/2014 [facility] ELECTROLYTES Calcium Lvl 9.0 mg/dL 8.5 - 10.5 03/08/2014 [facility] ELECTROLYTES eGFR 54 mL/min/1.73m2 03/08/2014 1Result Comment: The eGFR is calculated using the CKD-EPI formula. In most young, healthy individuals the eGFR will be >90 mL/min/1.73m2. The eGFR declines with age. An eGFR of 60-89 may be normal in some populations, particularly the elderly, for whom the CKD-EPI formula has not been extensively validated. Use of the eGFR is not recommended in the following populations: Individuals with unstable creatinine concentrations, including patients and those with serious co-morbid conditions. Patients with extremes in muscle mass or diet. The data above are obtained from the National Kidney Disease Education Program (NKDEP) which additionally recommends that when the eGFR is used in patients with extremes of body mass index for purposes of drug dosing, the eGFR should be multiplied by the estimated BMI. [facility] HEMATOLOGY Monocytes # 0.4 K/CMM 0.0 - 0.8 03/08/2014 [facility] HEMATOLOGY Lymphocytes # 1.1 K/CMM 1.0 - 5.5 03/08/2014 [facility] HEMATOLOGY Basophils 0.5 % 0.0 - 1.0 03/08/2014 [facility] HEMATOLOGY Eosinophils 0.8 % 0.0 - 4.0 03/08/2014 [facility] HEMATOLOGY Monocytes 8.0 % 2.0 - 12.0 03/08/2014 [facility] HEMATOLOGY Lymphocytes 22.2 % 20.0 - 40.0 03/08/2014 [facility] HEMATOLOGY Segs-Bands # 3.4 K/CMM 1.5 - 8.1 03/08/2014 [facility] Segs 68.5 % 45.0 - 75.0 03/08/2014 [facility] WBC 5.0 K/CMM 3.7 - 10.4 03/08/2014 [facility] Hct 30.3 % 36.0 - 48.0 03/08/2014 [facility] Hgb 10.3 g/dL 12.0 - 16.0 03/08/2014 [facility] RBC 3.42 M/CMM 4.20 - 5.40 03/08/2014 [facility] MPV 6.8 fL 7.4 - 10.4 03/08/2014 [facility] MCV 88.7 fL 81.0 - 99.0 03/08/2014 [facility] MCH 30.0 pg 27.0 - 31.0 03/08/2014 [facility] Platelet 154 K/CMM 133 - 450 03/08/2014 [facility] RDW 13.7 % 11.5 - 14.5 03/08/2014 [facility] MCHC 33.8 g/dL 32.0 - 36.0 03/08/2014 [facility] TOXICOLOGY Vanco Tr 15.6 ug/ml 03/07/2014 7Interpretive Data: Therapeutic Range: Trough: 10 - 20 ug/mL Peak: 20 - 40 ug/mL Potential Toxicity: >80 ug/mL [facility] TOXICOLOGY Vanco Tr TND 0800 03/07/2014 [facility] CHEM PANEL eGFR 48 mL/min/1.73m2 03/06/2014 2Result Comment: The eGFR is calculated using the CKD-EPI formula. In most young, healthy individuals the eGFR will be >90 mL/min/1.73m2. The eGFR declines with age. An eGFR of 60-89 may be normal in some populations, particularly the elderly, for whom the CKD-EPI formula has not been extensively validated. Use of the eGFR is not recommended in the following populations: Individuals with unstable creatinine concentrations, including patients and those with serious co-morbid conditions. Patients with extremes in muscle mass or diet. The data above are obtained from the National Kidney Disease Education Program (NKDEP) which additionally recommends that when the eGFR is used in patients with extremes of body mass index for purposes of drug dosing, the eGFR should be multiplied by the estimated BMI. [facility] CHEM PANEL Creatinine Lvl 1.1 mg/dL 0.5 - 1.4 03/06/2014 [facility] CHEM PANEL Glucose Lvl 121 mg/dL 70 - 99 03/06/2014 5Interpretive Data: Adult reference range values reflect the clinical guidelines of the [place] [employer]. [facility] CHEM PANEL BUN 18 mg/dL 7 - 22 03/06/2014 [facility] CHEM PANEL Chloride Lvl 105 meq/L 95 - 109 03/06/2014 [facility] CHEM PANEL CO2 29 meq/L 24 - 32 03/06/2014 [facility] CHEM PANEL Sodium Lvl 140 meq/L 135 - 145 03/06/2014 [facility] CHEM PANEL Potassium Lvl 4.3 meq/L 3.5 - 5.1 03/06/2014 [facility] CHEM PANEL Calcium Lvl 8.7 mg/dL 8.5 - 10.5 03/06/2014 [facility] CHEM PANEL AGAP 10.3 meq/L 10.0 - 20.0 03/06/2014 [facility] MCHC 33.4 g/dL 32.0 - 36.0 03/06/2014 [facility] MPV 6.9 fL 7.4 - 10.4 03/06/2014 [facility] Platelet 144 K/CMM 133 - 450 03/06/2014 [facility] RDW 13.8 % 11.5 - 14.5 03/06/2014 [facility] Hgb 9.2 g/dL 12.0 - 16.0 03/06/2014 [facility] RBC 3.15 M/CMM 4.20 - 5.40 03/06/2014 [facility] Hct 27.7 % 36.0 - 48.0 03/06/2014 [facility] MCH 29.3 pg 27.0 - 31.0 03/06/2014 [facility] MCV 87.9 fL 81.0 - 99.0 03/06/2014 [facility] WBC 4.5 K/CMM 3.7 - 10.4 03/06/2014 [facility] Lymphocytes 26.7 % 20.0 - 40.0 03/06/2014 [facility] HEMATOLOGY Segs 63.4 % 45.0 - 75.0 03/06/2014 [facility] Lymphocytes # 1.2 K/CMM 1.0 - 5.5 03/06/2014 [facility] Basophils 0.6 % 0.0 - 1.0 03/06/2014 [facility] Segs-Bands # 2.9 K/CMM 1.5 - 8.1 03/06/2014 [facility] Monocytes 7.6 % 2.0 - 12.0 03/06/2014 [facility] Eosinophils 1.7 % 0.0 - 4.0 03/06/2014 [facility] Monocytes # 0.3 K/CMM 0.0 - 0.8 03/06/2014 [facility] Eosinophils # 0.1 K/CMM 0.0 - 0.5 03/06/2014 [facility] CHEM PANEL eGFR 48 mL/min/1.73m2 03/05/2014 3Result Comment: The eGFR is calculated using the CKD-EPI formula. In most young, healthy individuals the eGFR will be >90 mL/min/1.73m2. The eGFR declines with age. An eGFR of 60-89 may be normal in some populations, particularly the elderly, for whom the CKD-EPI formula has not been extensively validated. Use of the eGFR is not recommended in the following populations: Individuals with unstable creatinine concentrations, including patients and those with serious co-morbid conditions. Patients with extremes in muscle mass or diet. The data above are obtained from the National Kidney Disease Education Program (NKDEP) which additionally recommends that when the eGFR is used in patients with extremes of body mass index for purposes of drug dosing, the eGFR should be multiplied by the estimated BMI. [facility] CHEM PANEL Creatinine Lvl 1.1 mg/dL 0.5 - 1.4 03/05/2014 [facility] Platelet 131 K/CMM 133 - 450 03/05/2014 [facility] PTT 36.1 s 22.9 - 35.8 03/05/2014 9Interpretive Data: Heparin Therapeutic Range: 57 - 92 Seconds [facility] WBC 4.2 K/CMM 3.7 - 10.4 03/05/2014 [facility] RDW 14.4 % 11.5 - 14.5 03/05/2014 [facility] MCHC 33.3 g/dL 32.0 - 36.0 03/05/2014 [facility] MPV 7.3 fL 7.4 - 10.4 03/05/2014 [facility] RBC 3.23 M/CMM 4.20 - 5.40 03/05/2014 [facility] MCH 29.9 pg 27.0 - 31.0 03/05/2014 [facility] HEMATOLOGY MCV 89.7 fL 81.0 - 99.0 03/05/2014 [facility] HEMATOLOGY Hgb 9.6 g/dL 12.0 - 16.0 03/05/2014 [facility] HEMATOLOGY Hct 28.9 % 36.0 - 48.0 03/05/2014 [facility] HEMATOLOGY Eosinophils 1.5 % 0.0 - 4.0 03/05/2014 [facility] HEMATOLOGY Monocytes 7.2 % 2.0 - 12.0 03/05/2014 [facility] HEMATOLOGY Lymphocytes 27.3 % 20.0 - 40.0 03/05/2014 [facility] HEMATOLOGY Monocytes # 0.3 K/CMM 0.0 - 0.8 03/05/2014 [facility] HEMATOLOGY Lymphocytes # 1.1 K/CMM 1.0 - 5.5 03/05/2014 [facility] HEMATOLOGY Basophils 0.7 % 0.0 - 1.0 03/05/2014 [facility] HEMATOLOGY Segs-Bands # 2.6 K/CMM 1.5 - 8.1 03/05/2014 [facility] HEMATOLOGY Eosinophils # 0.1 K/CMM 0.0 - 0.5 03/05/2014 [facility] HEMATOLOGY Segs 63.3 % 45.0 - 75.0 03/05/2014 [facility] URINE AND STOOL UA Urobilinogen <=1.0 mg/dL 0.1 - 1.0 03/04/2014 [facility] URINE AND STOOL UA Color [place] 03/04/2014 [facility] URINE AND STOOL UA WBC 2 /HPF 0 - 5 03/04/2014 [facility] URINE AND STOOL UA RBC 1 /HPF 0 - 2 03/04/2014 [facility] URINE AND STOOL UA Bacteria Occasional /HPF None Seen /HPF 03/04/2014 [facility] URINE AND STOOL UA Spec Grav 1.006 <=1.030 03/04/2014 [facility] URINE AND STOOL UA Turbidity Slight *ABN* (03/04/14 5:37 PM) Clear 03/04/2014 [facility] URINE AND STOOL UA Ketones Negative mg/dL Negative mg/dL 03/04/2014 [facility] URINE AND STOOL UA Glucose Negative mg/dL Negative mg/dL 03/04/2014 [facility] URINE AND STOOL UA Protein Negative mg/dL Negative mg/dL 03/04/2014 [facility] URINE AND STOOL UA pH 6.0 5.0 - 8.0 03/04/2014 [facility] URINE AND STOOL UA Sq Epi Few /LPF Few /LPF 03/04/2014 [facility] URINE AND STOOL UA Leuk Est Negative (03/04/14 5:37 PM) Negative 03/04/2014 [facility] URINE AND STOOL UA Blood Negative (03/04/14 5:37 PM) Negative 03/04/2014 [facility] URINE AND STOOL UA Nitrite Negative (03/04/14 5:37 PM) Negative 03/04/2014 [facility] URINE AND STOOL UA Bili Negative *NA* (03/04/14 5:37 PM) Negative 03/04/2014 [facility] CHEM PANEL Lactic Acid Lvl 1.3 mMol/L 0.5 - 2.2 03/04/2014 [facility] CARDIAC ENZYMES Total CK 85 unit/L 12 - 191 03/04/2014 [facility] CHEM PANEL B/C Ratio 18 6 - 25 03/04/2014 [facility] CHEM PANEL AGAP 10.0 meq/L 10.0 - 20.0 03/04/2014 [facility] CHEM PANEL A/G Ratio 1.2 0.7 - 1.6 03/04/2014 [facility] CHEM PANEL Globulin 3.1 g/dL 2.0 - 4.0 03/04/2014 [facility] CHEM PANEL AST 44 unit/L 0 - 37 03/04/2014 [facility] CHEM PANEL Calcium Lvl 9.2 mg/dL 8.5 - 10.5 03/04/2014 [facility] CHEM PANEL Total Protein 6.8 g/dL 6.4 - 8.4 03/04/2014 [facility] CHEM PANEL Bili Total 0.5 mg/dL 0.2 - 1.3 03/04/2014 [facility] CHEM PANEL Albumin Lvl 3.7 g/dL 3.5 - 5.0 03/04/2014 [facility] CHEM PANEL ALT 38 unit/L 0 - 65 03/04/2014 [facility] CHEM PANEL CO2 30 meq/L 24 - 32 03/04/2014 [facility] CHEM PANEL Alk Phos 113 unit/L 39 - 136 03/04/2014 [facility] CHEM PANEL Sodium Lvl 138 meq/L 135 - 145 03/04/2014 [facility] CHEM PANEL Potassium Lvl 4.0 meq/L 3.5 - 5.1 03/04/2014 [facility] CHEM PANEL Chloride Lvl 102 meq/L 95 - 109 03/04/2014 [facility] CHEM PANEL BUN 22 mg/dL 7 - 22 03/04/2014 [facility] CHEM PANEL Glucose Lvl 122 mg/dL 70 - 99 03/04/2014 6Interpretive Data: Adult reference range values reflect the clinical guidelines of the [place] [employer]. [facility] CHEM PANEL Lactic Acid Lvl 1.3 mMol/L 0.5 - 2.2 03/04/2014 [facility] HEMATOLOGY Eosinophils # 0.1 K/CMM 0.0 - 0.5 03/04/2014 [facility] Ext Lower Venous Doppler Bilat US Ext Lower Venous Doppler Bilat US Bilateral lower extremity venous Doppler ultrasound, Mar 04, 2014 04:36:33 PM CLINICAL HISTORY: See Clinic Indication ; Pain, Limb TECHNIQUE: Real-time, grayscale and color Doppler sonographic examination was performed of the bilateral lower extremity deep venous systems. No previous study is available for comparison. FINDINGS: The interrogated common femoral, greater saphenous, superficial femoral, popliteal and posterior tibial veins, in each lower extremity demonstrate normal compressibility and color-flow consistent with patency. Normal augmentation maneuvers were elicited. IMPRESSION: Negative for deep venous thrombosis of the bilateral lower extremities. SL: 03/04/2014 - - Read by: Rupinder Spencer MD Dictated Date/time: 03/04/14 16:43 Electronically Signed by: Rupinder Spencer MD 03/04/14 16:43 FINAL REPORT [facility] Chest 1view Chest 1view HISTORY: Hypertension. One view chest. Comparison 09/22/2013 Low lung volumes poor inspiration. There is cardiomegaly with pulmonary vascular congestion and hazy interstitial infiltrate suggesting pulmonary edema, bilaterally. No obvious pleural effusion. IMPRESSION: Suggesting CHF with edema. Correlate clinically for superimposed pneumonia. SL:03/04/2014 - - Read by: Toni Cummings MD Dictated Date/time: 03/04/14 16:17 Electronically Signed by: Toni Cummings MD 03/04/14 16:18 FINAL REPORT [facility] Tibia fibula series bil Tibia fibula series bilat HISTORY: Fall, pain. Bilateral tib-fib 2 views. Right tib-fib: Knee joint arthroplasty present. No acute fracture subluxation or lesion. Left tib-fib 2 views: Degenerative changes in the knee. No acute fracture subluxation or lesion. SL:03/04/2014 - - Read by: Toni Cummings MD Dictated Date/time: 03/04/14 16:19 Electronically Signed by: Toni Cummings MD 03/04/14 16:20 FINAL REPORT [facility] URINE AND STOOL UA Ketones Negative mg/dL Negative mg/dL 01/18/2014 [facility] URINE AND STOOL UA Bili Negative *NA* (01/18/14 1:14 PM) Negative 01/18/2014 [facility] URINE AND STOOL UA Blood Small *ABN* (01/18/14 1:14 PM) Negative 01/18/2014 [facility] URINE AND STOOL UA Leuk Est Small *ABN* (01/18/14 1:14 PM) Negative 01/18/2014 [facility] URINE AND STOOL UA Nitrite Negative (01/18/14 1:14 PM) Negative 01/18/2014 [facility] URINE AND STOOL UA Color Ltyellow 01/18/2014 [facility] URINE AND STOOL UA Urobilinogen <=1.0 mg/dL 0.1 - 1.0 01/18/2014 [facility] URINE AND STOOL UA Sq Epi Few /LPF Few /LPF 01/18/2014 [facility] URINE AND STOOL UA RBC 2 /HPF 0 - 2 01/18/2014 [facility] URINE AND STOOL UA WBC 35 /HPF 0 - 5 01/18/2014 [facility] URINE AND STOOL UA Bacteria Occasional /HPF None Seen /HPF 01/18/2014 [facility] URINE AND STOOL UA Turbidity Slight *ABN* (01/18/14 1:14 PM) Clear 01/18/2014 [facility] URINE AND STOOL UA Spec Grav 1.004 <=1.030 01/18/2014 [facility] URINE AND STOOL UA pH 7.0 5.0 - 8.0 01/18/2014 [facility] URINE AND STOOL UA Protein Negative mg/dL Negative mg/dL 01/18/2014 [facility] URINE AND STOOL UA Glucose Negative mg/dL Negative mg/dL 01/18/2014 [facility] Foot series Foot series Right foot series 3 views. FINDINGS: Soft tissue swelling is noted along the dorsum of the right foot. No evidence for fracture or subluxation. Mild generalized osteopenia. SL:13 01/18/2014 - - Read by: Pardeep Burr MD Dictated Date/time: 01/18/14 11:50 Electronically Signed by: Pardeep Burr MD 01/18/14 12:04 FINAL REPORT [facility] Extremity lower venous doppler bilat US Extremity lower venous doppler bilat US VENOUS ULTRASOUND BILATERAL LOWER EXTREMITY: Compression duplex imaging was done from the inguinal through the infra geniculate region of both lower extremities. The deep veins and saphenous veins are satisfactory visualized and are compressible without evidence of intraluminal thrombus. Satisfactory spontaneous and augmented flow signal is demonstrated. Subcutaneous edema is noted in the left popliteal region. IMPRESSION: Negative venous ultrasound of the lower extremities. SL:13 10/06/2013 - - Read by: Jeffery Combs Dictated Date/time: 10/06/13 08:53 Electronically Signed by: Jeffery Combs MD 10/06/13 08:53 FINAL REPORT [facility] ELECTROLYTES AGAP 8.6 meq/L 10.0 - 20.0 10/04/2013 [facility] ELECTROLYTES eGFR 88 mL/min/1.73m2 10/04/2013 1Result Comment: The eGFR is calculated using the CKD-EPI formula. In most young, healthy individuals the eGFR will be >90 mL/min/1.73m2. The eGFR declines with age. An eGFR of 60-89 may be normal in some populations, particularly the elderly, for whom the CKD-EPI formula has not been extensively validated. Use of the eGFR is not recommended in the following populations: Individuals with unstable creatinine concentrations, including patients and those with serious co-morbid conditions. Patients with extremes in muscle mass or diet. The data above are obtained from the National Kidney Disease Education Program (NKDEP) which additionally recommends that when the eGFR is used in patients with extremes of body mass index for purposes of drug dosing, the eGFR should be multiplied by the estimated BMI. [facility] ELECTROLYTES Glucose Lvl 133 mg/dL 70 - 99 10/04/2013 4Interpretive Data: Adult reference range values reflect the clinical guidelines of the [place] [employer]. [facility] ELECTROLYTES Sodium Lvl 142 meq/L 135 - 145 10/04/2013 [facility] ELECTROLYTES Creatinine Lvl 0.6 mg/dL 0.5 - 1.4 10/04/2013 [facility] ELECTROLYTES BUN 5 mg/dL 7 - 22 10/04/2013 [facility] ELECTROLYTES Calcium Lvl 8.8 mg/dL 8.5 - 10.5 10/04/2013 [facility] ELECTROLYTES CO2 34 meq/L 24 - 32 10/04/2013 [facility] ELECTROLYTES Potassium Lvl 3.6 meq/L 3.5 - 5.1 10/04/2013 [facility] ELECTROLYTES Chloride Lvl 103 meq/L 95 - 109 10/04/2013 [facility] HEMATOLOGY Eosinophils 0.9 % 0.0 - 4.0 10/04/2013 [facility] HEMATOLOGY Eosinophils # 0.0 K/CMM 0.0 - 0.5 10/04/2013 [facility] HEMATOLOGY Basophils # 0.0 K/CMM 0.0 - 0.2 10/04/2013 [facility] HEMATOLOGY Lymphocytes 26.3 % 20.0 - 40.0 10/04/2013 [facility] HEMATOLOGY Basophils 0.3 % 0.0 - 1.0 10/04/2013 [facility] HEMATOLOGY Segs-Bands # 2.4 K/CMM 1.5 - 8.1 10/04/2013 [facility] HEMATOLOGY Monocytes 9.9 % 2.0 - 12.0 10/04/2013 [facility] HEMATOLOGY Segs 62.6 % 45.0 - 75.0 10/04/2013 [facility] HEMATOLOGY Lymphocytes # 1.0 K/CMM 1.0 - 5.5 10/04/2013 [facility] HEMATOLOGY Monocytes # 0.4 K/CMM 0.0 - 0.8 10/04/2013 [facility] HEMATOLOGY Platelet 190 K/CMM 133 - 450 10/04/2013 [facility] HEMATOLOGY MPV 6.3 fL 7.4 - 10.4 10/04/2013 [facility] HEMATOLOGY WBC X 10x3 3.9 K/CMM 3.7 - 10.4 10/04/2013 [facility] HEMATOLOGY Hgb 9.8 g/dL 12.0 - 16.0 10/04/2013 [facility] RBC X 10x6 3.33 M/CMM 4.20 - 5.40 10/04/2013 [facility] HEMATOLOGY Hct 30.1 % 36.0 - 48.0 10/04/2013 [facility] HEMATOLOGY MCV 90.4 fL 81.0 - 99.0 10/04/2013 [facility] HEMATOLOGY MCHC 32.5 g/dL 32.0 - 36.0 10/04/2013 [facility] HEMATOLOGY MCH 29.4 pg 27.0 - 31.0 10/04/2013 [facility] HEMATOLOGY RDW 13.9 % 11.5 - 14.5 10/04/2013 [facility] ELECTROLYTES AGAP 11.8 meq/L 10.0 - 20.0 10/03/2013 [facility] ELECTROLYTES Glucose Lvl 143 mg/dL 70 - 99 10/03/2013 5Interpretive Data: Adult reference range values reflect the clinical guidelines of the [place] [employer]. [facility] ELECTROLYTES BUN 7 mg/dL 7 - 22 10/03/2013 [facility] ELECTROLYTES Sodium Lvl 146 meq/L 135 - 145 10/03/2013 [facility] ELECTROLYTES Creatinine Lvl 0.6 mg/dL 0.5 - 1.4 10/03/2013 [facility] ELECTROLYTES eGFR 88 mL/min/1.73m2 10/03/2013 2Result Comment: The eGFR is calculated using the CKD-EPI formula. In most young, healthy individuals the eGFR will be >90 mL/min/1.73m2. The eGFR declines with age. An eGFR of 60-89 may be normal in some populations, particularly the elderly, for whom the CKD-EPI formula has not been extensively validated. Use of the eGFR is not recommended in the following populations: Individuals with unstable creatinine concentrations, including patients and those with serious co-morbid conditions. Patients with extremes in muscle mass or diet. The data above are obtained from the National Kidney Disease Education Program (NKDEP) which additionally recommends that when the eGFR is used in patients with extremes of body mass index for purposes of drug dosing, the eGFR should be multiplied by the estimated BMI. [facility] ELECTROLYTES CO2 33 meq/L 24 - 32 10/03/2013 [facility] ELECTROLYTES Calcium Lvl 8.7 mg/dL 8.5 - 10.5 10/03/2013 [facility] ELECTROLYTES Potassium Lvl 3.8 meq/L 3.5 - 5.1 10/03/2013 [facility] ELECTROLYTES Chloride Lvl 105 meq/L 95 - 109 10/03/2013 [facility] HEMATOLOGY Segs 58.6 % 45.0 - 75.0 10/03/2013 [facility] HEMATOLOGY Lymphocytes 30.8 % 20.0 - 40.0 10/03/2013 [facility] HEMATOLOGY Monocytes 9.0 % 2.0 - 12.0 10/03/2013 [facility] HEMATOLOGY Basophils 0.5 % 0.0 - 1.0 10/03/2013 [facility] HEMATOLOGY Lymphocytes # 1.1 K/CMM 1.0 - 5.5 10/03/2013 [facility] HEMATOLOGY Eosinophils 1.1 % 0.0 - 4.0 10/03/2013 [facility] HEMATOLOGY Segs-Bands # 2.1 K/CMM 1.5 - 8.1 10/03/2013 [facility] HEMATOLOGY Monocytes # 0.3 K/CMM 0.0 - 0.8 10/03/2013 [facility] Basophils # 0.0 K/CMM 0.0 - 0.2 10/03/2013 [facility] Eosinophils # 0.0 K/CMM 0.0 - 0.5 10/03/2013 [facility] RBC X 10x6 3.22 M/CMM 4.20 - 5.40 10/03/2013 [facility] WBC X 10x3 3.6 K/CMM 3.7 - 10.4 10/03/2013 [facility] Hct 29.1 % 36.0 - 48.0 10/03/2013 [facility] Hgb 9.7 g/dL 12.0 - 16.0 10/03/2013 [facility] MCHC 33.2 g/dL 32.0 - 36.0 10/03/2013 [facility] MCH 30.0 pg 27.0 - 31.0 10/03/2013 [facility] Platelet 178 K/CMM 133 - 450 10/03/2013 [facility] RDW 13.9 % 11.5 - 14.5 10/03/2013 [facility] MCV 90.4 fL 81.0 - 99.0 10/03/2013 [facility] MPV 6.9 fL 7.4 - 10.4 10/03/2013 [facility] TOXICOLOGY Vanco Tr TND 1900 10/03/2013 [facility] TOXICOLOGY Vanco Tr 6.2 ug/ml 10/03/2013 7Interpretive Data: Therapeutic Range: Trough: 10 - 20 ug/mL Peak: 20 - 40 ug/mL Potential Toxicity: >80 ug/mL [facility] CHEM PANEL eGFR 88 mL/min/1.73m2 10/02/2013 3Result Comment: The eGFR is calculated using the CKD-EPI formula. In most young, healthy individuals the eGFR will be >90 mL/min/1.73m2. The eGFR declines with age. An eGFR of 60-89 may be normal in some populations, particularly the elderly, for whom the CKD-EPI formula has not been extensively validated. Use of the eGFR is not recommended in the following populations: Individuals with unstable creatinine concentrations, including patients and those with serious co-morbid conditions. Patients with extremes in muscle mass or diet. The data above are obtained from the National Kidney Disease Education Program (NKDEP) which additionally recommends that when the eGFR is used in patients with extremes of body mass index for purposes of drug dosing, the eGFR should be multiplied by the estimated BMI. [facility] CHEM PANEL CO2 34 meq/L 24 - 32 10/02/2013 [facility] CHEM PANEL Chloride Lvl 104 meq/L 95 - 109 10/02/2013 [facility] CHEM PANEL BUN 9 mg/dL 7 - 22 10/02/2013 [facility] CHEM PANEL Glucose Lvl 155 mg/dL 70 - 99 10/02/2013 6Interpretive Data: Adult reference range values reflect the clinical guidelines of the [place] [employer]. [facility] CHEM PANEL Potassium Lvl 4.0 meq/L 3.5 - 5.1 10/02/2013 [facility] CHEM PANEL Calcium Lvl 8.5 mg/dL 8.5 - 10.5 10/02/2013 [facility] CHEM PANEL Sodium Lvl 144 meq/L 135 - 145 10/02/2013 [facility] CHEM PANEL Creatinine Lvl 0.6 mg/dL 0.5 - 1.4 10/02/2013 [facility] CHEM PANEL AGAP 10.0 meq/L 10.0 - 20.0 10/02/2013 [facility] Hct 29.8 % 36.0 - 48.0 10/02/2013 [facility] Hgb 9.7 g/dL 12.0 - 16.0 10/02/2013 [facility] RBC X 10x6 3.26 M/CMM 4.20 - 5.40 10/02/2013 [facility] WBC X 10x3 4.1 K/CMM 3.7 - 10.4 10/02/2013 [facility] MCHC 32.6 g/dL 32.0 - 36.0 10/02/2013 [facility] MCV 91.6 fL 81.0 - 99.0 10/02/2013 [facility] MCH 29.9 pg 27.0 - 31.0 10/02/2013 [facility] MPV 6.6 fL 7.4 - 10.4 10/02/2013 [facility] RDW 13.6 % 11.5 - 14.5 10/02/2013 [facility] Platelet 191 K/CMM 133 - 450 10/02/2013 [facility] Eosinophils # 0.0 K/CMM 0.0 - 0.5 10/02/2013 [facility] Basophils # 0.0 K/CMM 0.0 - 0.2 10/02/2013 [facility] Monocytes # 0.4 K/CMM 0.0 - 0.8 10/02/2013 [facility] HEMATOLOGY Eosinophils 1.0 % 0.0 - 4.0 10/02/2013 [facility] HEMATOLOGY Lymphocytes # 0.9 K/CMM 1.0 - 5.5 10/02/2013 [facility] Segs-Bands # 2.7 K/CMM 1.5 - 8.1 10/02/2013 [facility] Basophils 0.2 % 0.0 - 1.0 10/02/2013 [facility] HEMATOLOGY Segs 66.8 % 45.0 - 75.0 10/02/2013 [facility] Monocytes 10.7 % 2.0 - 12.0 10/02/2013 [facility] Lymphocytes 21.3 % 20.0 - 40.0 10/02/2013 [facility] ANEMIA STUDY Folate Lvl 7.5 ng/mL >=3.0 ng/mL 09/26/2013 [facility] ANEMIA STUDY Vitamin B12 Lvl 1551 pg/mL 254 - 1320 09/26/2013 [facility] VLADISLAV Negative (09/26/2013 07:32:00 [place] Negative 09/26/2013 [facility] Hep B Core Ab Negative *NA* (09/26/2013 07:32:00 [place] Negative 09/26/2013 [facility] Hep C Ab Negative *NA* (09/26/2013 07:32:00 [place] Negative 09/26/2013 [facility] Hep Bs Ab null <=7.4 mIU/mL 09/26/2013 8Interpretive Data: <=7.4 mIU/mL--------Negative for Anti-HBs. Not immune to HBV infection. 7.5-12.4 mIU/mL--Borderline for Anti-HBs and immune status should be further assessed by considering other factors such as clinical status follow-up testing, associated risk factors, and the use of additional diagnostic information. >12.4 mIU/mL-------Positive for Anti-HBs. Immune to HBV infection [facility] Hep Bs Ag Negative *NA* (09/26/2013 07:32:00 [place] Negative 09/26/2013 [facility] HIV 1/2 Ab Negative *NA* (09/26/2013 07:32:00 [place] Negative 09/26/2013 [facility] HEMATOLOGY FSP <5 ug/ml <5 ug/ml 09/26/2013 [facility] HEMATOLOGY Fibrinogen Lvl 450 mg/dL 230 - 510 09/26/2013 [facility] HEMATOLOGY D-Dimer 0.94 ug/mL FEU 09/26/2013 9Interpretive Data: In DIC, quantitative D-Dimer is generally greater than 0.66 ug/mL FEU. Values of quantitative D-Dimer less than 0.40 ug/mL FEU have been reported to be associated with a low probability of deep vein thrombosis/pulmonary embolism. This test alone should not be used to rule out DVT/PE. [facility] CHEM PANEL Lactic Acid Lvl 0.5 mMol/L 0.5 - 2.2 09/23/2013 [facility] CHEM PANEL B/C Ratio 15 6 - 25 09/23/2013 [facility] CHEM PANEL ASPARTATE TRANSAMINASE 40 unit/L 0 - 37 09/23/2013 [facility] CHEM PANEL Total Protein 6.1 g/dL 6.4 - 8.4 09/23/2013 [facility] CHEM PANEL Albumin Lvl 3.0 g/dL 3.5 - 5.0 09/23/2013 [facility] CHEM PANEL Globulin 3.1 g/dL 2.0 - 4.0 09/23/2013 [facility] CHEM PANEL A/G Ratio 1.0 0.7 - 1.6 09/23/2013 [facility] CHEM PANEL Bili Total 0.5 mg/dL 0.2 - 1.3 09/23/2013 [facility] CHEM PANEL ALANINE AMINOTRANSFERASE 20 unit/L 0 - 65 09/23/2013 [facility] CHEM PANEL Alk Phos 59 unit/L 39 - 136 09/23/2013 [facility] CHEM PANEL Magnesium Lvl 1.9 mg/dL 1.8 - 2.4 09/23/2013 [facility] URINE AND STOOL UA Color [place] 09/22/2013 [facility] URINE AND STOOL UA RBC 4 /HPF 0 - 2 09/22/2013 [facility] URINE AND STOOL UA Blood Negative (09/22/2013 16:57:00 [place] Negative 09/22/2013 [facility] URINE AND STOOL UA Bili Negative *NA* (09/22/2013 16:57:00 [place] Negative 09/22/2013 [facility] URINE AND STOOL UA WBC 59 /HPF 0 - 5 09/22/2013 [facility] URINE AND STOOL UA Sq Epi Occasional /LPF Few /LPF 09/22/2013 [facility] URINE AND STOOL UA pH 5.0 5.0 - 8.0 09/22/2013 [facility] URINE AND STOOL UA Turbidity Marked *ABN* (09/22/2013 16:57:00 [place] Clear 09/22/2013 [facility] URINE AND STOOL UA Spec Grav 1.018 <=1.030 09/22/2013 [facility] URINE AND STOOL UA Ketones Negative mg/dL Negative mg/dL 09/22/2013 [facility] URINE AND STOOL UA Glucose Negative mg/dL Negative mg/dL 09/22/2013 [facility] URINE AND STOOL UA Protein 30 mg/dL Negative mg/dL 09/22/2013 [facility] URINE AND STOOL UA Mucus Few /LPF None Seen /LPF 09/22/2013 [facility] URINE AND STOOL UA Bacteria Occasional /HPF None Seen /HPF 09/22/2013 [facility] URINE AND STOOL UA Leuk Est Moderate *ABN* (09/22/2013 16:57:00 [place] Negative 09/22/2013 [facility] URINE AND STOOL UA Nitrite Negative (09/22/2013 16:57:00 [place] Negative 09/22/2013 [facility] URINE AND STOOL UA Urobilinogen 4.0 mg/dL 0.1 - 1.0 09/22/2013 [facility] URINE AND STOOL UA Hyal Cast 3 /LPF 0 - 2 09/22/2013 [facility] CARDIAC ENZYMES CK-MB INDEX 0.5 0.0 - 2.5 09/22/2013 [facility] CARDIAC ENZYMES CK MB 0.6 ng/mL 0.5 - 3.6 09/22/2013 [facility] CARDIAC ENZYMES Troponin-I 0.03 ng/mL 0.00 - 0.40 09/22/2013 [facility] CARDIAC ENZYMES Total CK 112 unit/L 12 - 191 09/22/2013 [facility] CHEM PANEL ALANINE AMINOTRANSFERASE 22 unit/L 0 - 65 09/22/2013 [facility] CHEM PANEL Albumin Lvl 3.8 g/dL 3.5 - 5.0 09/22/2013 [facility] CHEM PANEL ASPARTATE TRANSAMINASE 31 unit/L 0 - 37 09/22/2013 [facility] CHEM PANEL B/C Ratio 10 6 - 25 09/22/2013 [facility] CHEM PANEL Globulin 3.4 g/dL 2.0 - 4.0 09/22/2013 [facility] CHEM PANEL Total Protein 7.2 g/dL 6.4 - 8.4 09/22/2013 [facility] CHEM PANEL Alk Phos 69 unit/L 39 - 136 09/22/2013 [facility] CHEM PANEL Bili Total 0.4 mg/dL 0.2 - 1.3 09/22/2013 [facility] CHEM PANEL A/G Ratio 1.1 0.7 - 1.6 09/22/2013 [facility] Abdomen/Pelvis wo IV contrast CT Abdomen/Pelvis wo IV contrast CT I. CT SCAN of the ABDOMEN without contrast II. CT SCAN of the PELVIS without contrast HISTORY: Nausea and abdominal pain. Comparison is made to 07/09/2012. A study of 11/12/2011 was [address] I. CT SCAN of the ABDOMEN without contrast Technique: Helical CT images were obtained from the domes of the diaphragms. Neither oral or intravenous contrast was administered. II. CT SCAN of the PELVIS without contrast Technique: Helical CT images were obtained from the iliac crests to the pubic symphysis. Neither oral or intravenous contrast was administered. Sagittal and coronal reconstructions were provided. FINDINGS: There is no free intraperitoneal gas, abscess, focal inflammation, or other evidence of an acute intra-abdominal process. The liver, spleen, pancreas, and adrenals are normal in appearance. The kidneys are normal in size without hydronephrosis. No renal calculi are seen. Evaluation of the solid organs is limited due to lack of intravenous contrast. There is mild sigmoid diverticulosis. There is no evidence of diverticulitis. The gastrointestinal structures are otherwise unremarkable. There is no evidence of obstruction or ileus. Evaluation the gastrointestinal structures is limited due to lack of oral contrast. There no masses, fluid collections, or other focal abnormalities within the abdomen. The uterus is not visualized. Presumably, the patient has had a prior hysterectomy. There is a Lang catheter within the urinary bladder. The bladder is decompressed. Two small curvilinear calcifications are noted at the base of the bladder which are unchanged from the prior studies. There are extensive atherosclerotic calcifications involving the abdominal aorta and iliac arteries. There is no aneurysm. There is an implanted stimulator device in the superficial subcutaneous tissues of the right buttocks. An electrode is seen extending into the right sacral region. The visualized lung bases are clear. There are no pleural effusions. There are poststernotomy changes. There is mild cardiomegaly. Coronary artery calcifications are noted. There is no pericardial effusion. Extensive degenerative facet disease is noted the lower lumbosacral spine. It appears the patient has had a laminectomy in the lower lumbar region. There are mild scattered degenerative changes in the elsewhere in the visualized spine. CONCLUSION: 1. No evidence of an acute intra-abdominal process. 2. Mild sigmoid diverticulosis without evidence of diverticulitis. 3. Presumed hysterectomy. 4. Atherosclerosis. 5. Poststernotomy changes. There is mild cardiomegaly. 6. Implanted stimulating device in the right buttocks with electrode extending into the right sacral region. 7. Lang catheter within the urinary bladder. 8. Extensive degenerative facet disease in the lower lumbosacral spine per there also appears a laminectomy has been performed in this region. There relatively mild degenerative changes elsewhere within the visualized spine. Coding: Abdomen/pelvis w/o contrast CT SL: 13 Edwin Pham M.D. 09/22/2013 - - Read by: Edwin Pham Dictated Date/time: 09/23/13 10:32 Electronically Signed by: Edwin Pham MD 09/23/13 11:20 FINAL REPORT [facility] wo contrast CT Chest wo contrast CT CT scan of the chest without contrast: Exam reason: Dyspnea on exertion See Clinic Indication Multiple computerized axial tomograms of the chest were obtained without intravenous contrast administration. Dependent volume loss is noted at both lung bases. There is no consolidation or pleural fluid collection noted. The central tracheobronchial tree is grossly normal. The caliber of the thoracic aorta is not aneurysmal. There is no mediastinal or hilar adenopathy noted. The heart is mild to moderately enlarged. Vascular calcification is noted at the great vessels, thoracic aorta and coronary arteries. Postoperative changes are noted at the sternum and mediastinum. IMPRESSION: 1. There is no acute abnormality noted at the chest. SL:12 09/22/2013 - - Read by: Cm Bedolla Dictated Date/time: 09/22/13 17:58 Electronically Signed by: Cm Bedolla MD 09/22/13 18:00 FINAL REPORT [facility] 1view Chest 1view CHEST, portable (1 view) HISTORY: Fever. Dyspnea. Comparison is made to 04/28/2013. FINDINGS: There are post sternotomy changes. There is mild cardiomegaly. There is no evidence of failure. There are mild chronic nonspecific interstitial changes and mild chronic elevation the right hemidiaphragm. The lungs are clear. There are no pleural effusions. The regional skeleton is unremarkable. CONCLUSION: 1. No active or acute disease. 2. Poststernotomy changes. 3. Mild cardiomegaly. 4. Mild chronic interstitial changes and mild chronic elevation the right hemidiaphragm. Coding: Chest 1view CPT code: 87844 SL: 13 Edwin Pham M.D. 09/22/2013 - - Read by: Edwin Pham Dictated Date/time: 09/22/13 15:26 Electronically Signed by: Edwin Pham MD 09/22/13 15:28 FINAL REPORT [facility] Chest 2 views Chest 2 views PA and LATERAL CHEST (2 views) HISTORY: Asthma exacerbation Comparison is made to 04/15/2012. A study of 02/13/[address] scan of 07/09/2012 were reviewed. FINDINGS: There are poststernotomy changes. The lungs are clear. There are mild chronic interstitial changes. There is no evidence of an active or acute process within the chest. There is mild cardiomegaly. There is no overt failure. There are no pleural effusions. The regional skeleton is unremarkable. CONCLUSION: 1. No active disease. 2. Poststernotomy changes. 3. Mild cardiomegaly. 4. Mild chronic interstitial changes. Coding: Chest 2 views CPT Code: 24286 SL: 12 Edwin Pham M.D. 04/28/2013 - - Read by: Edwin Pham Dictated Date/time: 04/29/13 07:35 Electronically Signed by: Edwin Pham MD 04/29/13 07:36 FINAL REPORT [facility] Spine lumbar minimum 4 views Spine lumbar minimum 4 views Examination: Spine lumbar series Provided History: 724.5 Backache, Unspecified DIAGNOSIS: 1. Postoperative changes of laminectomy at L4 and L5. 2. Degenerative anterolisthesis of L4 on L5 increased compared to studies 3. Paravertebral calcifications on the right represent phleboliths, as evident on prior CT scan dated 09 July 2012 DISCUSSION: Complete lumbar spine series demonstrates lumbar spondylosis with degenerative anterolisthesis of L4 on L5 by approximately 8 mm, increased in the degree of subluxation compared to studies of 30 Dec 2007. Of note is advanced facet arthropathy at L4 and L5, with increased bony sclerosis compared to prior studies. There is moderate narrowing of the L3-L4 interspace also a new finding. There are postoperative changes involving the lamina at L4 and L5. Paravertebral calcifications on the right represent phleboliths, as identified on prior CT scan of 09 July 2012. 03/16/2013 - - Read by: Perry Jiang Dictated Date/time: 03/17/13 08:25 Electronically Signed by: Perry Jiang MD 03/17/13 08:33 FINAL REPORT [facility] [place] CHEMISTRY AST 22 unit/L 0 - 37 07/10/2012 Normal [facility] CHEMISTRY Bili Total 0.3 mg/dL 0.2 - 1.3 07/10/2012 Normal [facility] CHEMISTRY ALT 32 unit/L 0 - 65 07/10/2012 Normal [facility] CHEMISTRY Alk Phos 62 unit/L 39 - 136 07/10/2012 Normal [facility] CHEMISTRY Total Protein 6.8 g/dL 6.4 - 8.4 07/10/2012 Normal [facility] CHEMISTRY eGFR 49 mL/min/1.73m2 07/10/2012 NA 1Result Comment: The eGFR is calculated using the CKD-EPI formula. In most young, healthy individuals the eGFR will be >90 mL/min/1.73m2. The eGFR declines with age. An eGFR of 60-89 may be normal in some populations, particularly the elderly, for whom the CKD-EPI formula has not been extensively validated. Use of the eGFR is not recommended in the following populations: Individuals with unstable creatinine concentrations, including patients and those with serious co-morbid conditions. Patients with extremes in muscle mass or diet. The data above are obtained from the National Kidney Disease Education Program (NKDEP) which additionally recommends that when the eGFR is used in patients with extremes of body mass index for purposes of drug dosing, the eGFR should be multiplied by the estimated BMI. [facility] CHEMISTRY Albumin Lvl 3.6 g/dL 3.5 - 5.0 07/10/2012 Normal [facility] CHEMISTRY Calcium Lvl 8.6 mg/dL 8.5 - 10.5 07/10/2012 Normal [facility] CHEMISTRY CO2 29 meq/L 24 - 32 07/10/2012 Normal [facility] CHEMISTRY Chloride Lvl 103 meq/L 95 - 109 07/10/2012 Normal [facility] CHEMISTRY Potassium Lvl 4.4 meq/L 3.5 - 5.1 07/10/2012 Normal [facility] CHEMISTRY Sodium Lvl 139 meq/L 135 - 145 07/10/2012 Normal [facility] CHEMISTRY Creatinine Lvl 1.1 mg/dL 0.5 - 1.4 07/10/2012 Normal [facility] CHEMISTRY BUN 18 mg/dL 7 - 22 07/10/2012 Normal [facility] CHEMISTRY Glucose Lvl 168 mg/dL 70 - 99 07/10/2012 HI 2Interpretive Data: Adult reference range values reflect the clinical guidelines of the [place] [employer]. [facility] CHEMISTRY A/G Ratio 1.1 0.7 - 1.6 07/10/2012 Normal [facility] CHEMISTRY Globulin 3.2 g/dL 2.0 - 4.0 07/10/2012 Normal [facility] CHEMISTRY B/C Ratio 16 6 - 25 07/10/2012 Normal [facility] CHEMISTRY AGAP 11.4 meq/L 10.0 - 20.0 07/10/2012 Normal [facility] HEMATOLOGY INR 1.00 0.85 - 1.17 07/10/2012 Normal 3Interpretive Data: RECOMMENDED RANGES FOR PROTIME INR: 2.0-3.0 for most medical and surgical thromboembolic states. 2.5-3.5 for artificial heart valves and recurrent embolism. INR SHOULD BE USED ONLY FOR PATIENTS ON STABLE ANTICOAGULANT THERAPY. [facility] HEMATOLOGY PT 13.4 s 12.0 - 14.7 07/10/2012 Normal [facility] HEMATOLOGY MPV 6.7 fL 7.4 - 10.4 07/10/2012 LOW [facility] HEMATOLOGY Platelet 143 K/CMM 133 - 450 07/10/2012 Normal [facility] HEMATOLOGY MCH 30.4 pg 27.0 - 31.0 07/10/2012 Normal [facility] HEMATOLOGY MCV 91.1 fL 81.0 - 99.0 07/10/2012 Normal [facility] HEMATOLOGY RDW 12.8 % 11.5 - 14.5 07/10/2012 Normal [facility] HEMATOLOGY RBC 3.66 M/CMM 4.20 - 5.40 07/10/2012 LOW [facility] HEMATOLOGY MCHC 33.3 g/dL 32.0 - 36.0 07/10/2012 Normal [facility] HEMATOLOGY Hct 33.3 % 36.0 - 48.0 07/10/2012 LOW [facility] HEMATOLOGY Hgb 11.1 g/dL 12.0 - 16.0 07/10/2012 LOW [facility] HEMATOLOGY WBC 3.6 K/CMM 3.7 - 10.4 07/10/2012 LOW [facility] HEMATOLOGY Basophils # 0.0 K/CMM 0.0 - 0.2 07/10/2012 Normal [facility] HEMATOLOGY Eosinophils # 0.0 K/CMM 0.0 - 0.5 07/10/2012 Normal [facility] HEMATOLOGY Eosinophils 1.4 % 0.0 - 4.0 07/10/2012 Normal [facility] HEMATOLOGY Basophils 0.4 % 0.0 - 1.0 07/10/2012 Normal [facility] HEMATOLOGY Lymphocytes 40.0 % 20.0 - 40.0 07/10/2012 Normal [facility] HEMATOLOGY Segs 47.7 % 45.0 - 75.0 07/10/2012 Normal [facility] HEMATOLOGY Monocytes 10.5 % 2.0 - 12.0 07/10/2012 Normal [facility] HEMATOLOGY Lymphocytes # 1.4 K/CMM 1.0 - 5.5 07/10/2012 Normal [facility] HEMATOLOGY Monocytes # 0.4 K/CMM 0.0 - 0.8 07/10/2012 Normal [facility] HEMATOLOGY Segs-Bands # 1.7 K/CMM 1.5 - 8.1 07/10/2012 Normal [facility] URINALYSIS UA Urobilinogen <=1.0 mg/dL
*NA*
(07/09/2012 23:20:00) <sup> </sup> 0.1 - 1.0 07/10/2012 NA [facility] URINALYSIS UA Color Ltyellow 07/10/2012 NA [facility] URINALYSIS UA RBC null 0 - 2 07/10/2012 Normal [facility] URINALYSIS UA Bacteria Occasional /HPF *NA* (07/09/2012 23:20:00) None Seen 07/10/2012 [facility] URINALYSIS UA WBC 1 /HPF 0 - 5 07/10/2012 Normal [facility] URINALYSIS UA Sq Epi Occasional /LPF *NA* (07/09/2012 23:20:00) Few 07/10/2012 [facility] URINALYSIS UA Leuk Est Negative (07/09/2012 23:20:00) Negative 07/10/2012 Normal [facility] URINALYSIS UA Nitrite Negative (07/09/2012 23:20:00) Negative 07/10/2012 Normal [facility] URINALYSIS UA Blood Negative (07/09/2012 23:20:00) Negative 07/10/2012 Normal [facility] URINALYSIS UA Bili Negative *NA* (07/09/2012 23:20:00) Negative 07/10/2012 [facility] URINALYSIS UA Ketones Negative mg/dL *NA* (07/09/2012 23:20:00) Negative 07/10/2012 [facility] URINALYSIS UA Glucose Negative mg/dL *NA* (07/09/2012 23:20:00) Negative 07/10/2012 [facility] URINALYSIS UA Protein Negative mg/dL (07/09/2012 23:20:00) Negative 07/10/2012 Normal [facility] URINALYSIS UA pH 6.0 5.0 - 8.0 07/10/2012 Normal [facility] URINALYSIS UA Spec Grav 1.001 <=1.030 07/10/2012 Normal [facility] URINALYSIS UA Turbidity Clear (07/09/2012 23:20:00) Clear 07/10/2012 Normal [facility] Vital Signs Vital Sign Value Date Comments Source Systolic (mm Hg) 137 02/18/[facility] Diastolic (mm Hg) 70 02/18/2018 [facility] BMI Calculated 31.37 02/18/2018 [facility] Weight 70.455 02/18/2018 [facility] Height 149.86 cm 02/18/2018 [facility] Temperature Oral (F) 98.1 F 02/18/2018 [facility] Respitory Rate 14 02/18/2018 [facility] Heart Rate 57 02/18/2018 [facility] Heart Rate 57 01/28/2018 [facility] Respitory Rate 14 01/28/2018 [facility] Systolic (mm Hg) 110 01/28/2018 [facility] Diastolic (mm Hg) 71 01/28/2018 [facility] Height 149.86 cm 01/28/2018 [facility] Weight 68.636 01/28/2018 [facility] BMI Calculated 30.56 01/28/2018 [facility] Temperature Oral (F) 98.2 F 01/28/2018 [facility] BMI Calculated 30.16 01/16/2018 [facility] Weight 67.727 01/16/2018 [facility] Height 149.86 cm 01/16/2018 [facility] Respitory Rate 14 01/16/2018 [facility] Heart Rate 77 01/16/2018 [facility] Systolic (mm Hg) 132 01/16/2018 [facility] Diastolic (mm Hg) 56 01/16/2018 [facility] Temperature Oral (F) 98.2 F 01/16/2018 [facility] Weight 65.909 12/02/2017 [facility] BMI Calculated 29.35 12/02/2017 [facility] Height 149.86 cm 12/02/2017 [facility] Temperature Oral (F) 98.1 F 12/02/2017 [facility] Heart Rate 76 12/02/2017 [facility] Respitory Rate 14 12/02/2017 [facility] Systolic (mm Hg) 119 12/02/2017 [facility] BMI Calculated 27.73 11/21/2017 [facility] Weight 62.273 11/21/2017 [facility] Height 149.86 cm 11/21/2017 [facility] Temperature Oral (F) 98.2 F 11/21/2017 [facility] Respitory Rate 14 11/21/2017 [facility] Heart Rate 74 11/21/2017 [facility] Systolic (mm Hg) 118 11/21/2017 [facility] Diastolic (mm Hg) 49 11/21/2017 [facility] Height 149.86 cm 10/04/2017 [facility] BMI Calculated 28.13 10/04/2017 [facility] Weight 63.182 10/04/2017 [facility] Systolic (mm Hg) 139 10/04/2017 [facility] Diastolic (mm Hg) 70 10/04/2017 [facility] Respitory Rate 14 10/04/2017 [facility] Temperature Oral (F) 98.4 F 10/04/2017 [facility] Heart Rate 70 10/04/2017 [facility] Height 149.86 cm 08/22/2017 [facility] Systolic (mm Hg) 139 08/22/2017 [facility] Diastolic (mm Hg) 57 08/22/2017 [facility] Temperature Oral (F) 98.3 F 08/22/2017 [facility] Respitory Rate 14 08/22/2017 [facility] Heart Rate 89 08/22/2017 [facility] BMI Calculated 27.93 08/22/2017 [facility] Weight 62.727 08/22/2017 [facility] Heart Rate 63 08/14/2017 [facility] Systolic (mm Hg) 137 08/14/2017 [facility] Diastolic (mm Hg) 61 08/14/2017 [facility] Respitory Rate 18 08/14/2017 [facility] Heart Rate 61 08/14/2017 [facility] Systolic (mm Hg) 183 08/14/2017 [facility] Diastolic (mm Hg) 96 08/14/2017 [facility] Temperature Oral (F) 97.9 F 08/14/2017 [facility] Respitory Rate 18 08/14/2017 [facility] Temperature Oral (F) 97.5 F 08/14/2017 [facility] Systolic (mm Hg) 161 08/14/2017 [facility] Diastolic (mm Hg) 73 08/14/2017 [facility] Respitory Rate 18 08/14/2017 [facility] Heart Rate 66 08/14/2017 [facility] Temperature Oral (F) 98.2 F 08/14/2017 [facility] BMI Calculated 27.93 08/11/2017 [facility] Height 152.4 cm 08/11/2017 [facility] Weight 64.864 08/11/2017 [facility] Height 149.86 cm 08/10/2017 [facility] BMI Calculated 28.34 08/10/2017 [facility] Weight 63.636 08/10/2017 [facility] Temperature Oral (F) 98.3 F 08/01/2017 [facility] Respitory Rate 20 08/01/2017 [facility] Systolic (mm Hg) 149 08/01/2017 [facility] Diastolic (mm Hg) 45 08/01/2017 [facility] Respitory Rate 12 08/01/2017 [facility] Systolic (mm Hg) 137 08/01/2017 [facility] Diastolic (mm Hg) 55 08/01/2017 [facility] Respitory Rate 20 08/01/2017 [facility] Temperature Oral (F) 98.1 F 08/01/2017 [facility] Systolic (mm Hg) 142 08/01/2017 [facility] Diastolic (mm Hg) 47 08/01/2017 [facility] Temperature Oral (F) 97.7 F 08/01/2017 [facility] Height 149.86 cm 07/31/2017 [facility] BMI Calculated 32.47 07/31/2017 [facility] Weight 72.926 07/31/2017 [facility] Height 149.86 cm 07/31/2017 [facility] BMI Calculated 30.36 07/31/2017 [facility] Weight 68.182 07/31/2017 [facility] Heart Rate 81 07/31/2017 [facility] Height 149.86 cm 07/30/[facility] BMI Calculated 30.56 07/30/2017 [facility] Weight 68.636 07/30/2017 [facility] Temperature Oral (F) 98.0 F 07/30/2017 [facility] Systolic (mm Hg) 133 07/30/2017 [facility] Diastolic (mm Hg) 62 07/30/2017 [facility] Heart Rate 63 07/30/2017 [facility] Respitory Rate 16 07/30/2017 [facility] Temperature Oral (F) 98.7 F 06/18/2017 [facility] Systolic (mm Hg) 149 06/18/2017 [facility] Diastolic (mm Hg) 79 06/18/2017 [facility] Temperature Oral (F) 98.4 F 06/18/2017 [facility] Heart Rate 55 06/18/2017 [facility] Respitory Rate 20 06/18/2017 [facility] Systolic (mm Hg) 125 06/18/2017 [facility] Diastolic (mm Hg) 42 06/18/2017 [facility] Systolic (mm Hg) 117 06/18/2017 [facility] Diastolic (mm Hg) 69 06/18/2017 [facility] Respitory Rate 20 06/18/2017 [facility] Heart Rate 58 06/18/2017 [facility] Temperature Oral (F) 98.2 F 06/18/2017 [facility] Heart Rate 60 06/18/2017 [facility] Respitory Rate 20 06/18/2017 [facility] BMI Calculated 30.46 06/14/2017 [facility] Weight 68.409 06/14/2017 [facility] Height 149.86 cm 06/14/2017 [facility] Systolic (mm Hg) 149 06/14/2017 [facility] Diastolic (mm Hg) 38 06/14/2017 [facility] Respitory Rate 20 06/14/2017 [facility] Temperature Oral (F) 98.4 F 06/14/2017 [facility] Weight 72.727 06/14/2017 [facility] Height 162.56 cm 06/14/2017 [facility] BMI Calculated 27.52 06/14/2017 [facility] Respitory Rate 18 06/14/2017 [facility] Temperature Oral (F) 98.4 F 06/14/2017 [facility] Systolic (mm Hg) 156 06/14/2017 [facility] Diastolic (mm Hg) 44 06/14/2017 [facility] Heart Rate 55 06/14/2017 [facility] Temperature Oral (F) 98.2 F 05/25/2017 [facility] Systolic (mm Hg) 134 05/25/2017 [facility] Diastolic (mm Hg) 65 05/25/2017 [facility] Respitory Rate 33 05/25/2017 [facility] Systolic (mm Hg) 124 05/25/2017 [facility] Diastolic (mm Hg) 80 05/25/2017 [facility] Respitory Rate 32 05/25/2017 [facility] Respitory Rate 40 05/25/2017 [facility] Systolic (mm Hg) 117 05/25/2017 [facility] Diastolic (mm Hg) 54 05/25/2017 [facility] Temperature Oral (F) 98 F 05/25/2017 [facility] Temperature Oral (F) 97.0 F 05/25/2017 [facility] Weight 68.182 05/19/2017 [facility] Height 149.86 cm 05/19/2017 [facility] Heart Rate 62 05/14/2017 [facility] Heart Rate 67 05/14/2017 [facility] Heart Rate 65 05/14/2017 [facility] BMI Calculated 30.36 05/14/2017 [facility] Weight 68.182 05/14/2017 [facility] Height 149.86 cm 05/14/2017 [facility] Systolic (mm Hg) 104 05/14/2017 [facility] Diastolic (mm Hg) 54 05/14/2017 [facility] Respitory Rate 16 05/14/2017 [facility] Heart Rate 70 05/14/2017 [facility] Temperature Oral (F) 98.0 F 05/14/2017 [facility] Temperature Oral (F) 98.9 F 05/14/2017 [facility] Systolic (mm Hg) 143 05/14/2017 [facility] Diastolic (mm Hg) 68 05/14/2017 [facility] Respitory Rate 16 05/14/2017 [facility] Heart Rate 65 05/14/2017 [facility] Respitory Rate 16 05/13/2017 [facility] Systolic (mm Hg) 149 05/13/2017 [facility] Diastolic (mm Hg) 71 05/13/2017 [facility] Heart Rate 62 05/13/2017 [facility] Temperature Oral (F) 97.5 F 05/13/2017 [facility] Weight 74.318 05/11/2017 [facility] Height 149.86 cm 05/09/2017 [facility] Weight 72.727 05/09/2017 [facility] BMI Calculated 32.38 05/09/2017 [facility] Weight 81.818 05/09/2017 [facility] BMI Calculated 32.38 01/05/2017 [facility] Weight 72.727 01/05/2017 [facility] Systolic (mm Hg) 175 01/05/2017 [facility] Diastolic (mm Hg) 55 01/05/2017 [facility] Respitory Rate 18 01/05/2017 [facility] Heart Rate 66 01/05/2017 [facility] Temperature Oral (F) 98.3 F 01/05/2017 [facility] Height 149.86 cm 01/05/2017 [facility] Respitory Rate 18 12/12/2015 [facility] Systolic (mm Hg) 142 12/12/2015 [facility] Diastolic (mm Hg) 67 12/12/2015 [facility] Heart Rate 82 12/12/2015 [facility] Temperature Oral (F) 98.4 F 12/12/2015 [facility] Weight 73.182 12/12/2015 [facility] Temperature Oral (F) 98.8 F 12/12/2015 [facility] Height 152.4 cm 12/12/2015 [facility] BMI Calculated 31.51 12/12/2015 [facility] Heart Rate 84 12/12/2015 [facility] Respitory Rate 20 12/12/2015 [facility] Systolic (mm Hg) 156 12/12/2015 [facility] Diastolic (mm Hg) 52 12/12/2015 [facility] Height 149.8 cm 05/10/2015 [facility] BMI Calculated 33.71 05/10/2015 [facility] Weight 75.653 05/10/2015 [facility] Respitory Rate 16 05/10/2015 [facility] Temperature Oral (F) 97.4 F 05/10/2015 [facility] Heart Rate 66 05/10/2015 [facility] Systolic (mm Hg) 132 05/10/2015 [facility] Diastolic (mm Hg) 61 05/10/2015 [facility] Temperature Oral (F) 98 F 05/01/2015 [facility] Heart Rate 81 05/01/2015 [facility] Respitory Rate 18 05/01/2015 [facility] Systolic (mm Hg) 142 05/01/2015 [facility] Diastolic (mm Hg) 65 05/01/2015 [facility] Systolic (mm Hg) 130 05/01/2015 [facility] Diastolic (mm Hg) 65 05/01/2015 [facility] Respitory Rate 18 05/01/2015 [facility] Heart Rate 85 05/01/2015 [facility] Heart Rate 71 05/01/2015 [facility] Systolic (mm Hg) 130 05/01/2015 [facility] Diastolic (mm Hg) 39 05/01/2015 [facility] Respitory Rate 16 05/01/2015 [facility] BMI Calculated 35.01 05/01/2015 [facility] Weight 78.636 05/01/2015 [facility] Height 149.86 cm 05/01/2015 [facility] Temperature Oral (F) 98.2 F 05/01/2015 [facility] Weight 81.051 04/19/2015 [facility] Respitory Rate 16 04/19/2015 [facility] Heart Rate 75 04/19/2015 [facility] Temperature Oral (F) 97.5 F 04/19/2015 [facility] Systolic (mm Hg) 129 04/19/2015 [facility] Diastolic (mm Hg) 50 04/19/2015 [facility] Height 149.86 cm 04/19/2015 [facility] BMI Calculated 36.09 04/19/2015 [facility] Respitory Rate 16 01/07/2015 [facility] Heart Rate 61 01/07/2015 [facility] Temperature Oral (F) 98.1 F 01/07/2015 [facility] Respitory Rate 16 01/07/2015 [facility] Diastolic (mm Hg) 66 01/07/2015 [facility] Systolic (mm Hg) 119 01/07/2015 [facility] Systolic (mm Hg) 134 01/07/2015 [facility] Diastolic (mm Hg) 79 01/07/2015 [facility] Respitory Rate 18 01/07/2015 [facility] Temperature Oral (F) 98.4 F 01/07/2015 [facility] Systolic (mm Hg) 142 01/07/2015 [facility] Diastolic (mm Hg) 76 01/07/2015 [facility] Heart Rate 68 01/07/2015 [facility] Temperature Oral (F) 98.9 F 01/07/2015 [facility] Heart Rate 62 01/06/2015 [facility] Weight 83.636 12/31/2014 [facility] BMI Calculated 35.62 12/30/2014 [facility] Weight 80 12/30/2014 [facility] Height 149.86 cm 12/30/2014 [facility] Diastolic (mm Hg) 63 07/05/2014 [facility] Respitory Rate 18 07/05/2014 [facility] Systolic (mm Hg) 149 07/05/2014 [facility] Heart Rate 81 07/05/2014 [facility] Temperature Oral (F) 98.1 F 07/05/2014 [facility] Heart Rate 76 07/05/2014 [facility] Temperature Oral (F) 98.5 F 07/05/2014 [facility] Diastolic (mm Hg) 64 07/05/2014 [facility] Respitory Rate 18 07/05/2014 [facility] Systolic (mm Hg) 113 07/05/2014 [facility] Respitory Rate 18 07/05/2014 [facility] Heart Rate 86 07/05/2014 [facility] Temperature Oral (F) 98.2 F 07/05/2014 [facility] Diastolic (mm Hg) 66 07/05/2014 [facility] Systolic (mm Hg) 137 07/05/2014 [facility] BMI Calculated 34.84 06/29/2014 [facility] Height 152.4 cm 06/29/2014 [facility] Weight 80.909 06/29/2014 [facility] Diastolic (mm Hg) 55 05/20/2014 [facility] Systolic (mm Hg) 131 05/20/2014 [facility] Heart Rate 96 05/20/2014 [facility] Respitory Rate 17 05/20/2014 [facility] Temperature Oral (F) 98.1 F 05/20/2014 [facility] Respitory Rate 17 05/20/2014 [facility] Systolic (mm Hg) 96 05/20/2014 [facility] Diastolic (mm Hg) 44 05/20/2014 [facility] Temperature Oral (F) 98.2 F 05/20/2014 [facility] Heart Rate 72 05/20/2014 [facility] Respitory Rate 17 05/20/2014 [facility] Temperature Oral (F) 98.5 F 05/20/2014 [facility] Heart Rate 76 05/20/2014 [facility] Systolic (mm Hg) 104 05/20/2014 [facility] Diastolic (mm Hg) 54 05/20/2014 [facility] Height 160.02 cm 05/11/2014 [facility] BMI Calculated 33.25 05/11/2014 [facility] Weight 85.136 05/11/2014 [facility] Diastolic (mm Hg) 61 05/07/2014 [facility] Respitory Rate 21 05/07/2014 [facility] Systolic (mm Hg) 101 05/07/2014 [facility] Heart Rate 84 05/07/2014 [facility] Temperature Oral (F) 97.8 F 05/07/2014 [facility] Respitory Rate 14 05/07/2014 [facility] Temperature Oral (F) 98.2 F 05/07/2014 [facility] Heart Rate 70 05/07/2014 [facility] Systolic (mm Hg) 183 05/07/2014 [facility] Respitory Rate 18 05/07/2014 [facility] Diastolic (mm Hg) 79 05/07/2014 [facility] Systolic (mm Hg) 123 05/07/2014 [facility] Diastolic (mm Hg) 61 05/07/2014 [facility] Temperature Oral (F) 98.8 F 05/07/2014 [facility] Heart Rate 76 05/07/2014 [facility] Weight 82.273 05/03/2014 [facility] BMI Calculated 35.42 05/03/2014 [facility] Height 152.4 cm 05/03/2014 [facility] BMI Calculated 35.42 05/03/2014 [facility] Height 152.4 cm 05/03/2014 [facility] Weight 82.273 05/03/2014 [facility] Temperature Oral (F) 98.0 F 04/06/2014 [facility] Respitory Rate 16 04/06/2014 [facility] Systolic (mm Hg) 131 04/06/2014 [facility] Diastolic (mm Hg) 66 04/06/2014 [facility] Heart Rate 89 04/06/2014 [facility] Respitory Rate 20 04/06/2014 [facility] Temperature Oral (F) 97.3 F 04/06/2014 [facility] Respitory Rate 18 04/06/2014 [facility] Heart Rate 80 04/06/2014 [facility] Diastolic (mm Hg) 77 04/06/2014 [facility] Systolic (mm Hg) 126 04/06/2014 [facility] Systolic (mm Hg) 122 04/06/2014 [facility] Diastolic (mm Hg) 78 04/06/2014 [facility] Heart Rate 80 04/06/2014 [facility] Temperature Oral (F) 97.3 F 04/06/2014 [facility] Weight 83.636 04/02/2014 [facility] Height 152.4 cm 04/02/2014 [facility] BMI Calculated 36.01 04/02/2014 [facility] Height 152.4 cm 04/01/2014 [facility] BMI Calculated 36.01 04/01/2014 [facility] Weight 83.636 04/01/2014 [facility] Temperature Oral (F) 98.4 F 03/11/2014 [facility] Respitory Rate 18 03/11/2014 [facility] Heart Rate 84 03/11/2014 [facility] Systolic (mm Hg) 118 03/11/2014 [facility] Diastolic (mm Hg) 69 03/11/2014 [facility] Heart Rate 77 03/11/2014 [facility] Respitory Rate 18 03/11/2014 [facility] Systolic (mm Hg) 127 03/11/2014 [facility] Diastolic (mm Hg) 68 03/11/2014 [facility] Temperature Oral (F) 98 F 03/11/2014 [facility] Respitory Rate 18 03/11/2014 [facility] Temperature Oral (F) 98.1 F 03/11/2014 [facility] Heart Rate 67 03/11/2014 [facility] Systolic (mm Hg) 119 03/11/2014 [facility] Diastolic (mm Hg) 71 03/11/2014 [facility] Weight 86.364 03/05/2014 [facility] Height 149.86 cm 03/05/2014 [facility] BMI Calculated 38.46 03/05/2014 [facility] Weight 90.909 03/04/2014 [facility] BMI Calculated 40.48 03/04/2014 [facility] Height 149.86 cm 03/04/2014 [facility] Temperature Oral (F) 98.6 F 01/18/2014 [facility] Diastolic (mm Hg) 62 01/18/2014 [facility] Systolic (mm Hg) 118 01/18/2014 [facility] Respitory Rate 20 01/18/2014 [facility] Heart Rate 76 01/18/2014 [facility] Temperature Oral (F) 98.6 F 01/18/2014 [facility] Respitory Rate 16 01/18/2014 [facility] Heart Rate 76 01/18/2014 [facility] Diastolic (mm Hg) 62 01/18/2014 [facility] Systolic (mm Hg) 122 01/18/2014 [facility] Respitory Rate 18 01/18/2014 [facility] Heart Rate 80 01/18/2014 [facility] Diastolic (mm Hg) 60 01/18/2014 [facility] Systolic (mm Hg) 120 01/18/2014 [facility] Weight 90.909 01/18/2014 [facility] BMI Calculated 39.14 01/18/2014 [facility] Height 152.4 cm 01/18/2014 [facility] Temperature Oral (F) 98.3 F 01/18/2014 [facility] Temperature Oral (F) 97.9 F 10/06/2013 [facility] Diastolic (mm Hg) 66 10/06/2013 [facility] Heart Rate 76 10/06/2013 [facility] Respitory Rate 18 10/06/2013 [facility] Systolic (mm Hg) 149 10/06/2013 [facility] Diastolic (mm Hg) 72 10/06/2013 [facility] Respitory Rate 18 10/06/2013 [facility] Systolic (mm Hg) 152 10/06/2013 [facility] Heart Rate 73 10/06/2013 [facility] Temperature Oral (F) 98.1 F 10/06/2013 [facility] Respitory Rate 16 10/06/2013 [facility] Diastolic (mm Hg) 65 10/06/2013 [facility] Heart Rate 73 10/06/2013 [facility] Systolic (mm Hg) 175 10/06/2013 [facility] Temperature Oral (F) 98.7 F 10/06/2013 [facility] Weight 90.71 09/23/2013 [facility] Height 152.4 cm 09/22/2013 [facility] BMI Calculated 39.14 09/22/2013 [facility] Weight 90.909 09/22/2013 [facility] Weight 90.909 07/10/2012 [facility] Height 152.40 cm 07/10/2012 [facility] Encounters Location Location Details Encounter Type Encounter Number Reason For Visit Attending Provider ADM Date DC Date Status Source [facility] Emergency [id number] TANA AMANDA 07/09/2012 07/09/2012 Active [facility] Outpatient [id number] LEFT BREAST FILMS JESSE PENNY 08/20/2012 Active [facility] Inpatient [id number] AMIR GHEBRANIOUS 04/28/2013 05/03/2013 Active [facility] Inpatient [id number] HYPOXIA, UTI, PRINCE AMIR GHEBRANIOUS 09/22/2013 10/06/2013 Active [facility] Inpatient [id number] Amir Ghebranious 09/22/2013 10/06/2013 [facility] [id number] Nadim Mosque 01/18/2014 01/18/2014 [facility] Inpatient [id number] Ricardo Teqwimuah 03/04/2014 03/11/2014 [facility] Inpatient [id number] Ricardo Teqwimuah 04/01/2014 04/06/2014 [facility] Outpatient [id number] Ania Yue 04/27/2014 04/28/2014 [facility] Inpatient [id number] Amir Ghebranious 05/03/2014 05/07/2014 [facility] Inpatient [id number] Amir Ghebranious 05/11/2014 05/20/2014 [facility] Inpatient [id number] Amir Ghebranious 06/29/2014 07/05/2014 [facility] Inpatient [id number] Amir Ghebranious 12/30/2014 01/07/2015 [facility] Outpatient [id number] Laura Hamid 03/01/2015 03/02/2015 [facility] Outpatient [id number] Braden 04/19/2015 04/20/2015 [facility] Emergency Center [id number] Colin Balatzararmond 05/01/2015 05/01/2015 [facility] Outpatient [id number] Braden 05/10/2015 05/11/2015 [facility] Outpatient [id number] ECHO PEREZ 09/30/2015 [facility] [id number] ECHO PEREZ 09/30/2015 [facility] [id number] ECHO PEREZ 10/03/2015 [facility] Outpatient [id number] ECHO PEREZ 10/14/2015 Active [facility] Outpatient [id number] ECHO PEREZ 10/21/2015 Active [facility] Outpatient [id number] ECHO PEREZ 11/04/2015 [facility] Emergency Center [id number] Soniya Amador 12/12/2015 12/12/2015 [facility] Outpatient [id number] ECHO PEREZ 12/13/2015 Active [facility] Outpatient [id number] ECHO PEREZ 01/06/2016 [facility] Out[facility] [id number] ECHO PEREZ 02/07/2016 Active [facility] Outpatient [id number] ECHO PEREZ 02/14/2016 Active [facility] Outpatient [id number] ECHO PEREZ 04/02/2016 Active [facility] Outpatient [id number] ECHO PEREZ 04/30/2016 [facility] Outpatient [id number] ECHO PEREZ 06/22/2016 Active [facility] Outpatient [id number] DEMETRIA PAZ 08/29/2016 Active [facility] Outpatient [id number] ECHO PEREZ 09/24/2016 [facility] Outpatient [id number] ECHO PEREZ 09/26/2016 [facility] Outpatient [id number] SARAVANAN PANCHAL 10/30/2016 Active [facility] Outpatient [id number] SARAVANAN HERNANDEZH 11/02/2016 Active [facility] Emergency [id number] [place] Katja 01/05/2017 01/05/2017 [facility] Outpatient [id number] ECHO PEREZ 01/25/2017 [facility]patient [id number] ECHO PEREZ 03/27/2017 [facility] Out[facility] [id number] ECHO PEREZ 05/01/2017 Active [facility] Inpatient [id number] Nick Mott 05/08/2017 05/14/2017 [facility] Inpatient [id number] Kevin Emanuel 05/14/2017 05/25/2017 [facility] Emergency [id number] Mani Christopher 06/14/2017 06/14/2017 [facility] Inpatient [id number] Kevin Emanuel 06/14/2017 06/18/2017 [facility] Outpatient [id number] ECHO PEREZ 06/26/2017 Active [facility] Outpatient [id number] SARAVANAN PANCHAL 07/30/2017 Active [facility] Outpatient [id number] SARAVANAN HERNANDEZH 07/30/2017 Active [facility] Ambulatory Pre-Reg [id number] Amir Ghebranious 07/30/2017 07/30/2017 [facility] Outpatient [id number] Amir Ghebranious 07/30/2017 07/31/2017 Medical [facility] Observation [id number] Nick Mott 07/31/2017 08/01/2017 [facility] Outpatient [id number] SARAVANAN PANCHAL 07/31/2017 Active [facility] Ambulatory Pre-Reg [id number] Amir Ghebranious 07/31/2017 07/31/2017 [facility] Phone Message [id number] 08/08/2017 08/10/2017 [facility] Observation [id number] Taylor Batista 08/10/2017 08/14/2017 [facility] Outpatient [id number] SARAVANAN HERNANDEZH 08/21/2017 [facility] Primary Care [facility] Ambulatory Pre-Reg [id number] Amir Ghebranious 08/21/2017 08/21/2017 [facility] Outpatient [id number] SARAVANAN HERNANDEZH 08/22/2017 Active [facility] [id number] Amir Ghebranious 08/22/2017 08/23/2017 [facility] Phone Message [id number] 08/23/2017 08/25/2017 [facility] Phone Message [id number] 09/11/2017 09/13/2017 [facility] Outpatient [id number] SARAVANAN HERNANDEZH 10/04/2017 Active [facility] Primary Care [facility] Outpatient [id number] Amir Ghebranious 10/04/2017 10/05/2017 [facility] Phone Message [id number] 10/25/2017 10/27/2017 [facility] Outpatient [id number] SARAVANAN HERNANDEZH 10/29/2017 Active [facility] Primary [facility] Ambulatory Pre-Reg [id number] Amir Ghebranious 10/29/2017 10/29/2017 [facility] Outpatient [id number] SARAVANAN HERNANDEZH 11/21/2017 Active [facility] Primary Care [facility] Outpatient [id number] Amir Ghebranious 11/21/2017 11/22/2017 [facility] Outpatient [id number] SARAVANAN HERNANDEZH 12/02/2017 Active [facility] Outpatient [id number] Saravanan Hernandezh 12/02/2017 12/03/2017 [facility] Phone Message [id number] 12/03/2017 12/05/2017 [facility] Phone Message [id number] 01/03/2018 01/05/2018 [facility] Phone Message [id number] 01/10/2018 01/12/2018 [facility] Phone Message [id number] 01/15/2018 01/17/2018 [facility] Outpatient [id number] DEMETRIA SEARSO 01/16/2018 Active [facility] Primary [facility] Outpatient [id number] Saravanan Segun 01/16/2018 01/17/2018 [facility] Phone Message [id number] 01/27/2018 01/29/2018 [facility] Outpatient [id number] SARAVANAN HERNANDEZH 01/28/2018 [facility] Outpatient [id number] Saravanan Hernandezh 01/28/2018 01/29/2018 [facility] Phone Message [id number] 02/06/2018 02/08/2018 [facility] Outpatient [id number] SARAVANAN HERNANDEZH 02/18/2018 [facility] Outpatient [id number] Kathrinmegha Raymundoranious 02/18/2018 02/19/2018 [facility] Outpatient [id number] SARAVANAN HERNANDEZH 03/28/2018 Active [facility] Out[facility] [id number] SARAVANAN HERNANDEZH 04/03/2018 Active [facility] Outpatient [id number] SARAVANAN HERNANDEZH 04/08/2018 Active [facility] Outpatient [id number] SARAVANAN HERNANDEZH 05/07/2018 Active [facility] Outpatient [id number] ALEE PAREDES Active [facility] Outpatient [id number] SPLIT [id number] RAZIJOSE TRACYMED Cancel [facility] Preadmit [id number] DECONDITIONED NON PHYSICIAN Active [facility] Procedures Procedure Code Date Perfomer Comments Source TAVR - Transcatheter aortic valve replacement [id number] 05/23/2017 [facility] TAVR - Transcatheter aortic valve replacement [id number] 05/23/2017 [facility] TAVR - Transcatheter aortic valve replacement [id number] 05/23/2017 [facility] dual cardiac Bypass<sup>1</sup> [id number] 01/14/2010 pt had 2 bypass [facility] dual cardiac Bypass<sup>1</sup> [id number] 01/14/2010 pt had 2 bypass [facility] dual cardiac Bypass<sup>1</sup> [id number] 01/14/2010 pt had 2 bypass [facility] dual cardiac Bypass<sup>1</sup> [id number] 01/14/2010 pt had 2 bypass [facility] dual cardiac Bypass [id number] 01/14/2010 [facility] Caesarean section [id number] 08/19/1960 [facility] Caesarean section [id number] 08/19/1960 [facility] Caesarean section [id number] 08/19/1960 [facility] Caesarean section [id number] 08/19/1960 [place] Abdominal hysterectomy [id number] 08/19/1957 [facility] Abdominal hysterectomy [id number] 08/19/1957 [facility] Abdominal hysterectomy [id number] 08/19/1957 [facility] Abdominal hysterectomy [id number] 08/19/1957 [place] Appendectomy [id number] [facility] Back fusion [id number] [facility] Cholecystectomy [id number] [facility] Hysterectomy [id number] [facility] 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 [id number] [facility] Appendectomy [id number] [facility] Back fusion [id number] [facility] Bladder implantation<sup>2</sup> [id number] pt states a device was implanted into bladder to help regulate urination/ in addition the battery for this device inserted/located right posterior area above buttock/hip area [facility] Cholecystectomy [id number] [facility] Hysterectomy [id number] [facility] Replacement of aortic valve 71551465 [facility] 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 [id number] [facility] Bladder implantation<sup>2</sup> [id number] pt states a device was implanted into bladder to help regulate urination/ in addition the battery for this device inserted/located right posterior area above buttock/hip area [facility] Replacement of aortic valve [id number] [facility] Appendectomy [id number] [facility] Back fusion [id number] [facility] Bladder implantation<sup>2</sup> [id number] pt states a device was implanted into bladder to help regulate urination/ in addition the battery for this device inserted/located right posterior area above buttock/hip area [facility] Cholecystectomy [id number] [facility] Hysterectomy [id number] [facility] 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
--- OUTSIDE RECORDS SUMMARY | 2018-08-13 18:23 | XMS REPORT | CCD ---
Author Author Auto Generated Organization [facility] Address Unknown Phone Unavailable Care Team Providers Care Account Service Representative Name Role Phone Yesica Coker RP Allergies, Adverse Reactions, Alerts Substance Reaction Status ciprofloxacin Active Iodine [facility] Active penicillin Active
--- OUTSIDE RECORDS SUMMARY | 2018-08-13 18:23 | XMS REPORT | CCD ---
Author Author Auto Generated Organization [facility] Address Unknown Phone Unavailable Care Team Providers Care Trademark Attorney Name Role Phone Krish Moser CP Allergies, Adverse Reactions, Alerts Substance Reaction Status ciprofloxacin Active [facility]ine [facility] Active penicillin Active Medications Medication Instructions Start Date End Date Status [place] 5/325 oral 1 tab, PO, Q4-6H, PRN, 20 tab, as 07/10/2012 Ordered tablet needed for pain, Substitution Allowed, Maintenance propofol 10 mg/ml 1,000 mL, Rate: Titrate, Dosing 07/10/2012 07/10/2012 Discontinued (titrate) 1000 mL Weight 90.909, kg, Route: IV, Total Volume: 1,000, Start date: 07/10/12 0:54:00, Duration: 30 day, Stop date: 08/09/12 0:53:00, Replace Every: 24 hr Vital Signs Most recent to oldest [Reference Range]: 1 Height 152.40 cm (07/09/2012 22:16:00) Weight 90.909 kg (07/09/2012 22:16:00) Results URINALYSIS Most recent to oldest [Reference Range]: 1 UA Turbidity [Clear] Clear (07/09/2012 23:20:00) UA Color Ltyellow *NA* (07/09/2012 23:20:00) UA pH [5.0-8.0] 6.0 (07/09/2012 23:20:00) UA Spec Grav [<=1.030] 1.001 (07/09/2012 23:20:00) UA Glucose [Negative mg/dL] Negative mg/dL *NA* (07/09/2012 23:20:00) UA Blood [Negative] Negative (07/09/2012 23:20:00) UA Ketones [Negative mg/dL] Negative mg/dL *NA* (07/09/2012 23:20:00) UA Protein [Negative mg/dL] Negative mg/dL (07/09/2012 23:20:00) UA Urobilinogen [0.1-1.0 mg/dL] <=1.0 mg/dL *NA* (07/09/2012 23:20:00) UA Bili [Negative] Negative *NA* (07/09/2012 23:20:00) UA Leuk Est [Negative] Negative (07/09/2012 23:20:00) UA Nitrite [Negative] Negative (07/09/2012 23:20:00) UA WBC [0-5 /HPF] 1 /HPF (07/09/2012 23:20:00) UA RBC [0-2 /HPF] <1 /HPF (07/09/2012 23:20:00) UA Bacteria [None Seen /HPF] Occasional /HPF *NA* (07/09/2012 23:20:00) UA Sq Epi [Few /LPF] Occasional /LPF *NA* (07/09/2012 23:20:00) CHEMISTRY Most recent to oldest [Reference Range]: 1 Sodium Lvl [135-145 mEq/L] 139 mEq/L (07/09/2012 23:23:00) Potassium Lvl [3.5-5.1 mEq/L] 4.4 mEq/L (07/09/2012 23:23:00) Chloride Lvl [95-109 mEq/L] 103 mEq/L (07/09/2012 23:23:00) CO2 [24-32 mEq/L] 29 mEq/L (07/09/2012 23:23:00) AGAP [10.0-20.0 mEq/L] 11.4 mEq/L (07/09/2012 23:23:00) Creatinine Lvl [0.5-1.4 mg/dL] 1.1 mg/dL (07/09/2012 23:23:00) eGFR 49 mL/min/1.73m2 1 *NA* (07/09/2012 23:23:00) BUN [7-22 mg/dL] 18 mg/dL (07/09/2012 23:23:00) B/C Ratio [6-25] 16 (07/09/2012 23:23:00) Glucose Lvl [70-99 mg/dL] 168 mg/dL 2 *HI* (07/09/2012 23:23:00) Total Protein [6.4-8.4 g/dL] 6.8 g/dL (07/09/2012 23:23:00) Albumin Lvl [3.5-5.0 g/dL] 3.6 g/dL (07/09/2012 23:23:00) Globulin [2.0-4.0 g/dL] 3.2 g/dL (07/09/2012:23:00) A/G Ratio [0.7-1.6] 1.1 (07/09/2012:23:00) Calcium Lvl [8.5-10.5 mg/dL] 8.6 mg/dL (07/09/2012:23:00) ALT [0-65 unit/L] 32 unit/L (07/09/2012:23:00) AST [0-37 unit/L] 22 unit/L (07/09/2012:23:00) Alk Phos [39-136 unit/L] 62 unit/L (07/09/2012 23:23:00) Bili Total [0.2-1.3 mg/dL] 0.3 mg/dL (07/09/2012 23:23:00) 1Result Comment: The eGFR is calculated using [...] from the National Kidney Disease Education Program ( NKDEP) which additionally recommends that when the eGFR is used in patients with extremes of body mass index for purposes of drug dosing, the eGFR should be mul tiplied by the estimated BMI. 2Interpretive Data: Adult reference range values reflect the clinical guidelines of the [place] [employer]. HEMATOLOGY Most recent to oldest [Reference Range]: 1 WBC [3.7-10.4 K/CMM] 3.6 K/CMM *LOW* (07/09/2012 23:23:00) RBC [4.20-5.40 M/CMM] 3.66 M/CMM *LOW* (07/09/2012 23:23:00) Hgb [12.0-16.0 g/dL] 11.1 g/dL *LOW* (07/09/2012 23:23:00) Hct [36.0-48.0 %] 33.3 % *LOW* (07/09/2012 23:23:00) MCV [81.0-99.0 fL] 91.1 fL (07/09/2012 23:23:00) MCH [27.0-31.0 pg] 30.4 pg (07/09/2012 23:23:00) MCHC [32.0-36.0 g/dL] 33.3 g/dL (07/09/2012 23:23:00) RDW [11.5-14.5 %] 12.8 % (07/09/2012 23:23:00) Platelet [133-450 K/CMM] 143 K/CMM (07/09/2012 23:23:00) MPV [7.4-10.4 fL] 6.7 fL *LOW* (07/09/2012 23:23:00) Segs [45.0-75.0 %] 47.7 % (07/09/2012 23:23:00) Lymphocytes [20.0-40.0 %] 40.0 % (07/09/2012 23:23:00) Monocytes [2.0-12.0 %] 10.5 % (07/09/2012 23:23:00) Eosinophils [0.0-4.0 %] 1.4 % (07/09/2012 23:23:00) Basophils [0.0-1.0 %] 0.4 % (07/09/2012 23:23:00) Segs-Bands # [1.5-8.1 K/CMM] 1.7 K/CMM (07/09/2012 23:23:00) Lymphocytes # [1.0-5.5 K/CMM] 1.4 K/CMM (07/09/2012 23:23:00) Monocytes # [0.0-0.8 K/CMM] 0.4 K/CMM (07/09/2012 23:23:00) Eosinophils # [0.0-0.5 K/CMM] 0.0 K/CMM (07/09/2012 23:23:00) Basophils # [0.0-0.2 K/CMM] 0.0 K/CMM (07/09/2012 23:23:00) PT [12.0-14.7 seconds] 13.4 seconds (07/09/2012 23:23:00) INR [0.85-1.17] 1.00 3 (07/09/2012 23:23:00) 3Interpretive Data: RECOMMENDED RANGES FOR PROTIME INR: 2.0-3.0 for most medical and surgical thromboembolic states. 2.5-3.5 for artificial heart valves and recurrent embolism. INR SHOULD BE USED ONLY FOR PATIENTS ON STABLE ANTICOAGULANT THERAPY.
--- OUTSIDE RECORDS SUMMARY | 2018-08-13 18:23 | XMS REPORT | CCD ---
Author Author Auto Generated Organization [facility] [place] Address Unknown Phone Unavailable Care Team Providers Care Beverage Specialist Name Role Phone Chemo Bee CP Allergies, Adverse Reactions, Alerts Substance Reaction Status ciprofloxacin Active Iodine CUSTODIAL Active penicillin Active
--- OUTSIDE RECORDS SUMMARY | 2018-08-13 18:24 | XMS REPORT | Summary of Care ---
Author Organization Unknown Address Unknown Phone Unavailable Encounter Dates Location Diagnoses Discharge Providers Disposition 09/22/2013 [facility], [facility] [id number] [place], [place] [address] , [facility] Reason for Visit HYPOXIA, UTI, PRINCE Vital Signs 1 2 3 Most recent to oldest [Reference Range]: 152.4 cm (09/22/2013 14:39:00 [facility] Height 93.864 kg (10/06/2013 04:49:00 [facility]) 96.364 kg (10/05/2013 04:15:00 [facility] 95.085 kg (10/04/2013 05:26:00 [facility] Current Weight 97.9 DegF (10/06/2013 16:00:00 [facility] 98.1 DegF (10/06/2013 12:00:00 [facility] 98.7 DegF (10/06/2013 08:00:00 [facility] Temperature Oral [96.4-99.1 DegF] 149 mmHg *HI* (10/06/2013 16:00:00 [facility] 152 mmHg *HI* (10/06/2013 12:00:00 [facility] 175 mmHg *HI* (10/06/2013 08:00:00 [facility] Systolic Blood Pressure [90-140 mmHg] 66 mmHg (10/06/2013 16:00:00 [facility] 72 mmHg (10/06/2013 12:00:00 [facility] 65 mmHg (10/06/2013 08:00:00 [facility] Diastolic Blood Pressure [60-90 mmHg] 18 BRMIN (10/06/2013 16:00:00 [facility] 18 BRMIN (10/06/2013 12:00:00 [facility] 16 BRMIN (10/06/2013 08:22:00 [facility] Respiratory Rate [14-20 BRMIN] 76 bpm (10/06/2013 16:00:00 [facility]) 73 bpm (10/06/2013 12:00:00 [facility]) 73 bpm (10/06/2013 08:00:00 [facility]) Peripheral Pulse Rate [60-100 bpm] 90.71 kg (09/22/2013 21:33:00 [facility]) 90.909 kg (09/22/2013 14:39:00 [facility]) Weight 39.14 m2 (09/22/2013 14:39:00 [facility]) Body Mass Index Problem List Condition Effective Dates Status Health Status Informant Asthma(Confirmed) Active Bypass(Confirmed) Resolved CAD - Coronary Active artery disease(Confirmed) COPD(Confirmed) Active Critical illness Active myopathy(Confirmed) Diabetes Active mellitus(Confirmed) Fibromyalgia(Confirm Active ed) History of - Active multiple allergies(Confirmed) Hyperlipidemia(Confi Active rmed) Hypertension(Confirm Active ed) 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) OA - Active Osteoarthritis(Confi rmed) Obstructive sleep Active apnea(Confirmed) Parkinson Active disease(Confirmed) Psoriasis(Confirmed) Active Allergies, Adverse Reactions, Alerts Status Substance Reaction Severity Active ciprofloxacin Active Iodine ASSISTED Active penicillin Medications Medication Instructions Start Date Stop Date Status albuterol 0.083% 2.5 mg, 3.01 mL, Route: NEB, Drug 09/23/2013 09/27/2013 Discontinued inhalation solution form: SOLN, RQ6H, Dosing Weight 90.71, kg, PRN Wheezing, Start date: 09/23/13 7:49:00, Duration: 30 day, Stop date: 10/23/13 7:48:00 SEE RT DOCUMENTATION (Same as: Provenvon) albuterol 0.083% 2.5 mg=3 mL, NEB, Q6H, Shortness of 09/22/2013 Ordered inhalation solution breath, 0 Refill(s) albuterol-ipratropiu 3 mL, Route: NEB, Dosing Weight 09/22/2013 09/22/2013 Completed m 2.5-0.5 mg 90.909, kg, ONCE, STAT, Start date: inhalation solution 09/22/13 15:02:00, Stop date: 09/22/13 15:02:00 ALPRAZOLam 0.25 mg, PO, TID, as needed for 09/22/2013 Ordered anxiety, 0 Refill(s) ALPRAZOLam 0.25 mg, 1 tab, Route: PO, Drug 09/23/2013 10/06/2013 Discontinued form: TAB, TID, Dosing Weight 90.71, kg, PRN as needed for anxiety, Start date: 09/23/13 7:49:00, Duration: 30 day, Stop date: 10/23/13 7:48:00 With food or milk(Same as: Xanax) AMIODarone 200 mg, 1 tab, Route: PO, Drug 09/23/2013 10/06/2013 Discontinued form: TAB, Daily, Dosing Weight 90.71, kg, Start date: 09/23/13 9:00:00, Duration: 30 day, Stop date: 10/22/13 9:00:00 (Same as: Cordarone) Aricept 5 mg, 1 tab, Route: PO, Drug form: 09/23/2013 10/06/2013 Discontinued TAB, Bedtime, Dosing Weight 90.71, kg, Start date: 09/23/13 21:00:00, Duration: 30 day, Stop date: 10/22/13 21:00:00 (Same as: Aricept) atropine 0.5 mg, 5 mL, Route: IVP, Drug 09/26/2013 10/06/2013 Discontinued form: INJ, PRN, PRN Bradycardia, Start date: 09/26/13 9:40:00, Duration: 30 day, Stop date: 10/26/13 10:39:00 azithromycin 500 mg, 250 mL, Route: IVPB, Drug 09/22/2013 09/22/2013 Discontinued form: PDR/INJ, [id number], Dosing Weight 90.909, kg, Priority: Routine, Start date: 09/22/13 16:00:00, Duration: 30 day, Stop date: 10/21/13 16:00:00 Same as: Zithromax cefepime + Sodium 1 gm, Route: IV, [id number], Dosing 09/22/2013 09/23/2013 Discontinued Chloride 0.9% IV 100 Weight 90.909, kg, (For CrCl 10-29 mL ml/min), Start date: 09/22/13 20:00:00, Duration: 30 day, Stop date: 10/21/13 20:00:00 (Same As: Maxipime) cefepime + Sodium 1 gm, Route: IVPB, [id number], Dosing 09/23/2013 09/25/2013 Discontinued Chloride 0.9% IV 100 Weight 90.71, kg, (CrCl >/=50 mL ml/min), Start date: 09/23/13 17:00:00, Duration: 30 day, Stop date: 10/23/13 5:00:00 (Same As: Maxipime) ceftriaxone + Sodium 1 gm, Route: IVPB, Drug form: 09/22/2013 09/22/2013 Discontinued Chloride 0.9% IV 100 PDR/INJ, [id number], Dosing Weight mL 90.909, kg, Priority: Routine, Start date: 09/22/13 16:00:00, Duration: 30 day, Stop date: 10/21/13 16:00:00 (Same As: Rocephin). Use with 100ml NS mini-bag PLUS and infuse over 30 min chlordiazePOXIDE-cli 1 cap, Route: PO, Drug Form: CAP, 09/23/2013 10/06/2013 Discontinued dinium 5 mg-2.5 mg Dosing Weight 90.71, kg, BID-Before oral capsule Meals, Start date: 09/23/13 16:30:00, Duration: 30 day, Stop date: 10/23/13 7:30:00 (Same As: Librax) Dextrose 50% Syringe 12.5 gm, 25 mL, Route: IVP, Drug 09/22/2013 10/06/2013 Discontinued Form: INJ, Dosing Weight 90.909, kg, PRN, PRN Blood Glucose Results, Start date: 09/22/13 19:52:00, Duration: 30 day, Stop date: 10/22/13 19:51:00 Dextrose 50% Syringe 25 gm, 50 mL, Route: IVP, Drug 09/22/2013 10/06/2013 Discontinued Form: INJ, Dosing Weight 90.909, kg, PRN, PRN Blood Glucose Results, Start date: 09/22/13 19:52:00, Duration: 30 day, Stop date: 10/22/13 19:51:00 Effexor XR 150 mg, 1 cap, Route: PO, Drug 09/23/2013 10/06/2013 Discontinued form: ERCAP, Bedtime, Dosing Weight 90.71, kg, Start date: 09/23/13 21:00:00, Duration: 30 day, Stop date: 10/22/13 21:00:00 Do not open, crush, or chew. (Same As: Effexor XR) fluocinonide topical 1 appl, TOP, BID, to psoriasis, 0 09/22/2013 Ordered 0.05% cream Refill(s) to psoriasis fluocinonide topical 1 appl, Route: TOP, BID, Drug form: 09/23/2013 10/06/2013 Discontinued 0.05% cream CRM, Start date: 09/23/13 9:00:00, Duration: 30 day, Stop date: 10/22/13 17:00:00 (Same as: Lidex) gentamicin + Sodium 160 mg, 4 mL, Route: IV, Drug form: 09/24/2013 09/24/2013 Completed Chloride 0.9% IV 100 INJ, ONCE, Dosing Weight 90.71, kg, mL Start date: 09/24/13 6:54:00, Stop date: 09/24/13 6:54:00 (Same as Garamycin) glucagon 1 mg, Route: IM, Drug form: 09/22/2013 10/06/2013 Discontinued PDR/INJ, PRN, Dosing Weight 90.909, kg, PRN Blood Glucose Results, Start date: 09/22/13 19:52:00, Duration: 30 day, Stop date: 10/22/13 19:51:00 hydrocortisone 1 appl, Route: TOP, BID, Drug form: 09/23/2013 10/06/2013 Discontinued topical 2.5% cream CRM, Start date: 09/23/13 9:00:00, Duration: 30 day, Stop date: 10/22/13 17:00:00 hydrocortisone 1 appl, TOP, BID, to psoriasis, 0 09/22/2013 Ordered topical 2.5% cream Refill(s) to psoriasis insulin aspart 6 unit, 0.06 mL, Route: SUB-Q, Drug 09/22/2013 10/06/2013 Discontinued form: SOLN, TID-Before Meals, Dosing Weight 90.909, kg, PRN Blood Glucose Results, Start date: 09/22/13 19:52:00, Duration: 30 day, Stop date: 10/22/13 19:51:00 Roll in palms of hands gently; Do not shake vigorously. (Same as: NovoLOG)"single patient use only" Stable for 28 days at room temperature.Expires in days from Date insulin aspart 10 unit, 0.1 mL, Route: SUB-Q, Drug 09/22/2013 10/06/2013 Discontinued form: SOLN, TID-Before Meals, Dosing Weight 90.909, kg, PRN Blood Glucose Results, Start date: 09/22/13 19:52:00, Duration: 30 day, Stop date: 10/22/13 19:51:00 Roll in palms of hands gently; Do not shake vigorously. (Same as: NovoLOG)"single patient use only" Stable for 28 days at room temperature.Expires in days from Date insulin aspart 8 unit, 0.08 mL, Route: SUB-Q, Drug 09/22/2013 10/06/2013 Discontinued form: SOLN, TID-Before Meals, Dosing Weight 90.909, kg, PRN Blood Glucose Results, Start date: 09/22/13 19:52:00, Duration: 30 day, Stop date: 10/22/13 19:51:00 Roll in palms of hands gently; Do not shake vigorously. (Same as: NovoLOG)"single patient use only" Stable for 28 days at room temperature.Expires in days from Date insulin aspart 4 unit, 0.04 mL, Route: SUB-Q, Drug 09/22/2013 10/06/2013 Discontinued form: SOLN, TID-Before Meals, Dosing Weight 90.909, kg, PRN Blood Glucose Results, Start date: 09/22/13 19:52:00, Duration: 30 day, Stop date: 10/22/13 19:51:00 Roll in palms of hands gently; Do not shake vigorously. (Same as: NovoLOG)"single patient use only" Stable for 28 days at room temperature.Expires in days from Date insulin aspart 2 unit, 0.02 mL, Route: SUB-Q, Drug 09/22/2013 10/06/2013 Discontinued form: SOLN, TID-Before Meals, Dosing Weight 90.909, kg, PRN Blood Glucose Results, Start date: 09/22/13 19:52:00, Duration: 30 day, Stop date: 10/22/13 19:51:00 Roll in palms of hands gently; Do not shake vigorously. (Same as: NovoLOG)"single patient use only" Stable for 28 days at room temperature.Expires in days from Date insulin isophane-NPH 25 unit, 0.25 mL, Route: SUB-Q, 09/24/2013 09/25/2013 Completed Drug form: INJ, ONCE, Dosing Weight 90.71, kg, Start date: 09/24/13 23:15:00, Stop date: 09/24/13 23:15:00 Roll in palms of hands gently; Do not shake vigorously. (Same as: NovoLIN N, Humulin N)"single patient use only" Stable for 14 days at room temperatureExpires in days from Date ipratropium 0.02% 0.5 mg, 2.5 mL, Route: NEB, Drug 09/27/2013 10/06/2013 Discontinued inhalation solution form: SOLN, Q4H, PRN Shortness of breath, Start date: 09/27/13 22:02:00, Duration: 30 day, Stop date: 10/27/13 22:01:00 SEE RT DOCUMENTATION(Same as:Atrovent) isosorbide 30 mg, 1 tab, Route: PO, Drug form: 09/23/2013 10/06/2013 Discontinued mononitrate ERTAB, QAM, Dosing Weight 90.71, kg, Start date: 09/23/13 9:00:00, Duration: 30 day, Stop date: 10/22/13 9:00:00 (Same as:Imdur)"Do Not Crush" Take on empty stomach/ full glass of water. Do not crush Keflex 500 mg, 1 cap, Route: PO, Drug 10/06/2013 10/06/2013 Discontinued form: CAP, [id number], Dosing Weight 90.71, kg, Start date: 10/06/13 16:00:00, Duration: 30 day, Stop date: 11/05/13 8:00:00 Take on empty stomach. (Same As: Keflex) ketoconazole topical 1 appl, Route: TOP, BID, Drug form: 09/23/2013 10/06/2013 Discontinued 2% cream CRM, Start date: 09/23/13 9:00:00, Duration: 30 day, Stop date: 10/22/13 17:00:00 Non-Formulary Drug (Same as: Nizoral Topical) ketoconazole topical 1 appl, TOP, BID, 0 Refill(s) 09/22/2013 Ordered 2% cream Lasix 20 mg, 1 tab, Route: PO, Drug form: 10/04/2013 10/04/2013 Completed TAB, ONCE, Dosing Weight 90.71, kg, Start date: 10/04/13 20:20:00, Stop date: 10/04/13 20:20:00 (Same as: Lasix) May cause GI upset. Give with food or milk. Lasix 20 mg, 1 tab, Route: PO, Drug form: 10/04/2013 10/04/2013 Completed TAB, ONCE, Dosing Weight 90.71, kg, Start date: 10/04/13 21:30:00, Stop date: 10/04/13 21:30:00 (Same as: Lasix) May cause GI upset. Give with food or milk. levothyroxine 150 microgram, 1 tab, Route: PO, 09/24/2013 10/06/2013 Discontinued Drug form: TAB, [id number], Dosing Weight 90.71, kg, Start date: 09/24/13 6:30:00, Duration: 30 day, Stop date: 10/23/13 6:30:00 Take 1 hour before or 2 hours after meal; Enteral feeds may interefere with the absorption of this medication. (Same as: Levothroid) Lovenox 30 mg, 0.3 mL, Route: SUB-Q, Drug 09/29/2013 10/06/2013 Discontinued form: INJ, [id number], Dosing Weight 90.71, kg, For CrCl <30mL/min, Start date: 09/29/13 14:00:00, Duration: 30 day, Stop date: 10/28/13 14:00:00 (Same as: Lovenox) meclizine 25 mg oral 25 mg=1 tab, PO, Daily, 0 Refill(s) 09/22/2013 10/06/2013 Discontinued tablet meropenem + Sodium 500 mg, Route: IVPB, Drug form: 09/25/2013 10/06/2013 Discontinued Chloride 0.9% IV 100 PDR/INJ, [id number], Dosing Weight mL 90.71, kg, CrCL=26 -49 ml/min, Extended infusion, infuse over 3 hours, Start date: 09/25/13 10:00:00, Duration: 30 day, Stop date: 10/25/13 3:00:00 Same as Merrem.. montelukast 10 mg, 1 tab, Route: PO, Drug form: 09/23/2013 10/06/2013 Discontinued TAB, Bedtime, Dosing Weight 90.71, kg, Start date: 09/23/13 21:00:00, Duration: 30 day, Stop date: 10/22/13 21:00:00 (Same as:Singulair) montelukast 10 mg 10 mg=1 tab, PO, Bedtime, 0 09/22/2013 Ordered oral tablet Refill(s) nitroglycerin 0.4 mg 0.4 mg, 1 tab, Route: SL, Drug 09/26/2013 10/06/2013 Discontinued sublingual tablet form: TAB, Q5Min, PRN Chest Pain, Start date: 09/26/13 9:40:00, Duration: 30 day, Stop date: 10/26/13 10:39:00 (Same as:Nitroquick, Nitrostat)"Do Not Crush" Sublingual tablet NovoLIN 70/30 42 unit, SUB-Q, BID, 0 Refill(s) 09/22/2013 10/06/2013 Discontinued NovoLIN 70/30 Route: SUB-Q, Drug form: SUSP, BID, 09/23/2013 09/23/2013 Deleted Dosing Weight 90.71, kg, Start date: 09/23/13 9:00:00, Duration: 30 day, Stop date: 10/22/13 17:00:00 NovoLOG Mix 70/30 See Special Instructions, SUB-Q, 10/06/2013 Ordered BID-Before Meals, Inject 9 units before breakfast and 7 units before dinner, # 10 mL, 0 Refill(s) Inject 9 units before breakfast and 7 units before dinner NovoLOG Mix 70/30 20 unit, 0.2 mL, Route: SUB-Q, Drug 09/30/2013 10/06/2013 Discontinued FlexPen form: INJ, BID, Start date: 09/30/13 7:45:00, Duration: 30 day, Stop date: 10/29/13 16:45:00 Roll in palms of hands gently; Do not shake vigorously. (Same as: NovoLOG Mix)"single patient use only" Stable for 14 days at room temperatureExpires in days from Date NovoLOG Mix 70/30 35 unit, 0.35 mL, Route: SUB-Q, 09/29/2013 09/30/2013 Discontinued FlexPen Drug form: INJ, BID, Priority: NOW, Start date: 09/29/13 20:39:00, Duration: 30 day, Stop date: 10/29/13 16:45:00 Roll in palms of hands gently; Do not shake vigorously. (Same as: NovoLOG Mix)"single patient use only" Stable for 14 days at room temperatureExpires in days from Date NovoLOG Mix 70/30 42 unit, 0.42 mL, Route: SUB-Q, 09/23/2013 09/29/2013 Discontinued FlexPen Drug form: INJ, BID, Start date: 09/23/13 9:00:00, Duration: 30 day, Stop date: 10/22/13 16:45:00 Roll in palms of hands gently; Do not shake vigorously. (Same as: NovoLOG Mix)"single patient use only" Stable for 14 days at room temperatureExpires in days from Date predniSONE 10 mg, 1 tab, Route: PO, Drug form: 09/28/2013 09/28/2013 Completed TAB, Daily, Start date: 09/28/13 9:00:00, Duration: 1 day, Stop date: 09/28/13 9:00:00 (Same as: PredniSONE) Take with food. predniSONE 20 mg, 2 tab, Route: PO, Drug form: 09/27/2013 09/27/2013 Completed TAB, Daily, Start date: 09/27/13 9:00:00, Duration: 1 day, Stop date: 09/27/13 9:00:00 (Same as: PredniSONE) Take with food. predniSONE 30 mg, 3 tab, Route: PO, Drug form: 09/26/2013 09/26/2013 Completed TAB, Daily, Start date: 09/26/13 9:00:00, Duration: 1 day, Stop date: 09/26/13 9:00:00 (Same as: PredniSONE) Take with food. predniSONE taper 40 mg, 4 tab, Route: PO, Drug form: 09/25/2013 09/25/2013 Completed daily TAB, Daily, Start date: 09/25/13 9:00:00, Duration: 1 day, Stop date: 09/25/13 9:00:00 (Same as: PredniSONE) Take with food. Pyridium 100 mg, 1 tab, Route: PO, Drug 09/22/2013 09/25/2013 Completed form: TAB, TID, Dosing Weight 90.909, kg, Start date: 09/22/13 22:00:00, Duration: 3 day, Stop date: 09/25/13 17:00:00 Give with meals.(Same as: Pyridium) Saline Flush 0.9% 5 mL, Route: IVP, Drug Form: INJ, 09/22/2013 09/23/2013 Discontinued Dosing Weight 90.909, kg, PRN, PRN Line Flush, Start date: 09/22/13 15:02:00, Duration: 30 day, Stop date: 10/22/13 15:01:00 (Same as: BD Posiflush) Saline Flush 0.9% 5 ml, Route: IVP, Drug Form: INJ, 09/22/2013 10/06/2013 Discontinued Dosing Weight 90.909, kg, PRN, PRN Line Flush, Start date: 09/22/13 19:54:00, Duration: 30 day, Stop date: 10/22/13 19:53:00 (Same as: BD Posiflush) Sodium Chloride 0.9% 1,000 mL, Rate: 1,000 ml/hr, Infuse 09/22/2013 09/22/2013 Completed (Bolus) IV 1,000 mL over: 1 hr, Route: IV, Dosing Weight 90.909 kg, Total Volume: 1,000, Priority: STAT, Start date: 09/22/13 15:02:00, Duration: 1 doses or times, Stop date: 09/22/13 16:01:00 Sodium Chloride 0.9% 1,000 mL, Rate: 75 ml/hr, Infuse 09/22/2013 10/04/2013 Discontinued IV 1,000 mL over: 13.3 hr, Route: IV, Dosing Weight 90.909 kg, Total Volume: 1,000, Start date: 09/22/13 19:54:00, Duration: 30 day, Stop date: 10/22/13 19:53:00 Solu-MEDROL 60 mg, 1.5 mL, Route: IV, Drug 09/24/2013 09/24/2013 Discontinued form: INJ, Daily, Dosing Weight 90.71, kg, Start date: 09/24/13 12:00:00, Duration: 30 day, Stop date: 10/24/13 9:00:00 (Same as:Solu-MEDROL, A-Methapred) Toprol-XL 25 mg oral 25 mg, 1 tab, Route: PO, Drug form: 09/23/2013 10/06/2013 Discontinued tablet, extended ERTAB, Daily, Start date: 09/23/13 release 9:00:00, Duration: 30 day, Stop date: 10/22/13 9:00:00 (Same as: Toprol XL) Do Not Crush vancomycin 1.5 gm, 250 mL, Route: IVPB, Drug 09/22/2013 09/23/2013 Discontinued form: INJ, [id number], Dosing Weight 90.909, kg, Start date: 09/22/13 20:00:00, Duration: 30 day, Stop date: 10/21/13 20:00:00 Same as: Vancocin-NS (premixed) vancomycin 1 gm, 200 mL, Route: IVPB, Drug 09/26/2013 10/06/2013 Discontinued form: INJ, [id number], Dosing Weight 90.71, kg, Start date: 09/26/13 14:00:00, Duration: 30 day, Stop date: 10/25/13 14:00:00 Xopenex 1.25 mg, 3 mL, Route: NEB, Drug 09/27/2013 10/06/2013 Discontinued form: SOLN, Q4H, PRN Shortness of breath, Start date: 09/27/13 22:02:00, Duration: 30 day, Stop date: 10/27/13 22:01:00 SEE RT DOCUMENTATION (Same as:Xopenex)Non-Formulary Results ELECTROLYTES 1 2 3 Most recent to oldest [Reference Range]: 142 mEq/L (10/04/2013 07:03:00 [facility]) 146 mEq/L *HI* (10/03/2013 03:28:00 [facility]) 144 mEq/L (10/02/2013 03:45:00 [facility]) Sodium Lvl [135-145 mEq/L] 3.6 mEq/L (10/04/2013 07:03:00 [facility]) 3.8 mEq/L (10/03/2013 03:28:00 [facility]) 4.0 mEq/L (10/02/2013 03:45:00 [facility]) Potassium Lvl [3.5-5.1 mEq/L] 103 mEq/L (10/04/2013 07:03:00 [facility]) 105 mEq/L (10/03/2013 03:28:00 [facility]) 104 mEq/L (10/02/2013 03:45:00 [facility]) Chloride Lvl [95-109 mEq/L] 34 mEq/L *HI* (10/04/2013 07:03:00 [facility]) 33 mEq/L *HI* (10/03/2013 03:28:00 [facility]) 34 mEq/L *HI* (10/02/2013 03:45:00 [facility]) CO2 [24-32 mEq/L] 8.6 mEq/L *LOW* (10/04/2013 07:03:00 [facility] 11.8 mEq/L (10/03/2013 03:28:00 [facility]) 10.0 mEq/L (10/02/2013 03:45:00 [facility]) AGAP [10.0-20.0 mEq/L] CHEM PANEL 1 2 3 Most recent to oldest [Reference Range]: 0.6 mg/dL (10/04/2013 07:03:00 [facility] 0.6 mg/dL (10/03/2013 03:28:00 [facility]) 0.6 mg/dL (10/02/2013 03:45:00 [facility]) Creatinine Lvl [0.5-1.4 mg/dL] 88 mL/min/1.73m2 1 *NA* (10/04/2013 07:03:00 [facility]) 88 mL/min/1.73m2 2 *NA* (10/03/2013 03:28:00 [facility]) 88 mL/min/1.73m2 3 *NA* (10/02/2013 03:45:00 [facility]) eGFR 5 mg/dL *LOW* (10/04/2013 07:03:00 [facility] 7 mg/dL (10/03/2013 03:28:00 [facility]) 9 mg/dL (10/02/2013 03:45:00 [facility]) BUN [7-22 mg/dL] 15 (09/23/2013 05:22:00 [facility] 10 (09/22/2013 13:11:00 [facility]) B/C Ratio [6-25] 133 mg/dL 4 *HI* (10/04/2013 07:03:00 [facility]) 143 mg/dL 5 *HI* (10/03/2013 03:28:00 [facility]) 155 mg/dL 6 *HI* (10/02/2013 03:45:00 [facility]) Glucose Lvl [70-99 mg/dL] 6.1 g/dL *LOW* (09/23/2013 05:22:00 [facility] 7.2 g/dL (09/22/2013 13:11:00 [facility] Total Protein [6.4-8.4 g/dL] 3.0 g/dL *LOW* (09/23/2013 05:22:00 [facility]) 3.8 g/dL (09/22/2013 13:11:00 [facility]) Albumin Lvl [3.5-5.0 g/dL] 3.1 g/dL (09/23/2013 05:22:00 [facility]) 3.4 g/dL (09/22/2013 13:11:00 [facility]) Globulin [2.0-4.0 g/dL] 1.0 (09/23/2013 05:22:00 [facility]) 1.1 (09/22/2013 13:11:00 [facility]) A/G Ratio [0.7-1.6] 8.8 mg/dL (10/04/2013 07:03:00 [facility]) 8.7 mg/dL (10/03/2013 03:28:00 [facility]) 8.5 mg/dL (10/02/2013 03:45:00 [facility]) Calcium Lvl [8.5-10.5 mg/dL] 1.9 mg/dL (09/23/2013 05:22:00 [facility]) Magnesium Lvl [1.8-2.4 mg/dL] 20 unit/L (09/23/2013 05:22:00 [facility]) 22 unit/L (09/22/2013 13:11:00 [facility]) ALT [0-65 unit/L] 40 unit/L *HI* (09/23/2013 05:22:00 [facility]) 31 unit/L (09/22/2013 13:11:00 [facility]) AST [0-37 unit/L] 59 unit/L (09/23/2013 05:22:00 [facility]) 69 unit/L (09/22/2013 13:11:00 [facility]) Alk Phos [39-136 unit/L] 0.5 mg/dL (09/23/2013:22:00 [facility]) 0.4 mg/dL (09/22/2013 13:11:00 [facility]) Bili Total [0.2-1.3 mg/dL] 0.5 mMol/L (09/23/2013 05:22:00 [facility]) Lactic Acid Lvl [0.5-2.2 mMol/L] 1Result Comment: The eGFR is calculated using [...] be mul tiplied by the estimated BMI. 2Result Comment: The eGFR is calculated using [...] be mul tiplied by the estimated BMI. 3Result Comment: The eGFR is calculated using [...] be mul tiplied by the estimated BMI. 4Interpretive Data: Adult reference range values reflect the clinical guidelines of the [place] [employer]. 5Interpretive Data: Adult reference range values reflect the clinical guidelines of the [place] [employer]. 6Interpretive Data: Adult reference range values reflect the clinical guidelines of the [place] [employer]. CARDIAC ENZYMES 1 2 3 Most recent to oldest [Reference Range]: 112 unit/L (09/22/2013 13:11:00 [facility]) Total CK [12-191 unit/L] 0.6 ng/mL (09/22/2013 13:11:00 [facility]) CK MB [0.5-3.6 ng/mL] 0.5 (09/22/2013 13:11:00 [facility]) CK MB Index [0.0-2.5] 0.03 ng/mL (09/22/2013 13:11:00 [facility]) Troponin-I [0.00-0.40 ng/mL] ANEMIA STUDY 1 2 3 Most recent to oldest [Reference Range]: 1551 pg/mL *HI* (09/26/2013 07:32:00 [facility]) Vitamin B12 Lvl [254-1320 pg/mL] 7.5 ng/mL (09/26/2013 07:32:00 [facility]) Folate Lvl [>=3.0 ng/mL] TOXICOLOGY 1 2 3 Most recent to oldest [Reference Range]: 1900 *NA* (10/02/2013 18:16:00 [facility]) Barneyo Tr TND 6.2 ug/ml 7 *NA* (10/02/2013 18:16:00 [facility]) Lul Malik 7Interpretive Data: Therapeutic Range: Trough: 10 - 20 ug/mL Peak: 20 - 40 ug/mL Potential Toxicity: >80 ug/mL URINE AND STOOL 1 2 3 Most recent to oldest [Reference Range]: Marked *ABN* (09/22/2013 16:57:00 [facility]) UA Turbidity [Clear] Fouzia *NA* (09/22/2013 16:57:00 [facility]) UA Color 5.0 (09/22/2013 16:57:00 [facility]) UA pH [5.0-8.0] 1.018 (09/22/2013 16:57:00 [facility]) UA Spec Grav [<=1.030] Negative mg/dL *NA* (09/22/2013 16:57:00 [facility]) UA Glucose [Negative mg/dL] Negative (09/22/2013 16:57:00 [facility]) UA Blood [Negative] Negative mg/dL *NA* (09/22/2013 16:57:00 [facility]) UA Ketones [Negative mg/dL] 30 mg/dL *ABN* (09/22/2013 16:57:00 [facility]) UA Protein [Negative mg/dL] 4.0 mg/dL *HI* (09/22/2013 16:57:00 [facility]) UA Urobilinogen [0.1-1.0 mg/dL] Negative *NA* (09/22/2013 16:57:00 [facility]) UA Bili [Negative] Moderate *ABN* (09/22/2013 16:57:00 [facility]) UA Leuk Est [Negative] Negative (09/22/2013 16:57:00 [facility]) UA Nitrite [Negative] 59 /HPF *HI* (09/22/2013 16:57:00 [facility]) UA WBC [0-5 /HPF] 4 /HPF *HI* (09/22/2013 16:57:00 [facility]) UA RBC [0-2 /HPF] Occasional /HPF *NA* (09/22/2013 16:57:00 [facility]) UA Bacteria [None Seen /HPF] Occasional /LPF *NA* (09/22/2013 16:57:00 [facility]) UA Sq Epi [Few /LPF] 3 /LPF *HI* (09/22/2013 16:57:00 [facility]) UA Hyal Cast [0-2 /LPF] Few /LPF *NA* (09/22/2013 16:57:00 [facility]) UA Mucus [None Seen /LPF] IMMUNOLOGY 1 2 3 Most recent to oldest [Reference Range]: Negative (09/26/2013 07:32:00 [place] [facility] [facility] VLADISLAV [Negative] Negative *NA* (09/26/2013 07:32:00 [facility]) HIV 1/2 Ab [Negative] Negative *NA* (09/26/2013 07:32:00 [facility]) Hep Bs Ag [Negative] <1.0 mIU/mL 8 (09/26/2013 07:32:00 [facility]) Hep Bs Ab [<=7.4 mIU/mL] Negative *NA* (09/26/2013 07:32:00 [facility]) Hep B Core Ab [Negative] Negative *NA* (09/26/2013 07:32:00 [facility]) Hep C Ab [Negative] 8Interpretive Data: <=7.4 mIU/mL--------Negative for Anti-HBs. Not immune to HBV infection. 7.5-12.4 mIU/mL--Borderline for Anti-HBs and immune status should be further assessed by considering other factors such as clinical status follow-up testing, associated risk factors, and the use of additional diagnostic information. >12.4 mIU/mL-------Positive for Anti-HBs. Immune to HBV infection HEMATOLOGY 1 2 3 Most recent to oldest [Reference Range]: 3.9 K/CMM (10/04/2013 07:03:00 [facility]) 3.6 K/CMM *LOW* (10/03/2013 03:28:00 [facility]) 4.1 K/CMM (10/02/2013 03:45:00 [facility]) WBC [3.7-10.4 K/CMM] 3.33 M/CMM *LOW* (10/04/2013 07:03:00 [facility]) 3.22 M/CMM *LOW* (10/03/2013 03:28:00 [facility]) 3.26 M/CMM *LOW* (10/02/2013 03:45:00 [facility]) RBC [4.20-5.40 M/CMM] 9.8 g/dL *LOW* (10/04/2013 07:03:00 [facility]) 9.7 g/dL *LOW* (10/03/2013 03:28:00 [facility]) 9.7 g/dL *LOW* (10/02/2013 03:45:00 [facility]) Hgb [12.0-16.0 g/dL] 30.1 % *LOW* (10/04/2013 07:03:00 [facility]) 29.1 % *LOW* (10/03/2013 03:28:00 [facility] 29.8 % *LOW* (10/02/2013 03:45:[facility] Hct [36.0-48.0 %] 90.4 fL (10/04/2013 07:03:00 [facility]) 90.4 fL (10/03/2013 03:28:00 [facility]) 91.6 fL (10/02/2013 03:45:00 [facility]) MCV [81.0-99.0 fL] 29.4 pg (10/04/2013 07:03:00 [facility]) 30.0 pg (10/03/2013 03:28:00 [facility]) 29.9 pg (10/02/2013 03:45:00 [facility]) MCH [27.0-31.0 pg] 32.5 g/dL (10/04/2013 07:03:00 [facility]) 33.2 g/dL (10/03/2013 03:28:00 [facility]) 32.6 g/dL (10/02/2013 03:45:00 [facility]) MCHC [32.0-36.0 g/dL] 13.9 % (10/04/2013 07:03:00 [facility]) 13.9 % (10/03/2013 03:28:00 [facility]) 13.6 % (10/02/2013 03:45:00 [facility]) RDW [11.5-14.5 %] 190 K/CMM (10/04/2013 07:03:00 [facility]) 178 K/CMM (10/03/2013 03:28:00 [facility]) 191 K/CMM (10/02/2013 03:45:00 [facility]) Platelet [133-450 K/CMM] 6.3 fL *LOW* (10/04/2013 07:03:00 [facility]) 6.9 fL *LOW* (10/03/2013 03:28:00 [facility]) 6.6 fL *LOW* (10/02/2013 03:45:00 [facility]) MPV [7.4-10.4 fL] 62.6 % (10/04/2013 07:03:00 [facility]) 58.6 % (10/03/2013 03:28:00 [facility]) 66.8 % (10/02/2013 03:45:00 [facility] Segs [45.0-75.0 %] 26.3 % (10/04/2013 07:03:00 [facility] 30.8 % (10/03/2013 03:28:00 [facility]) 21.3 % (10/02/2013 03:45:00 [facility]) Lymphocytes [20.0-40.0 %] 9.9 % (10/04/2013 07:03:00 [facility] 9.0 % (10/03/2013 03:28:00 [facility]) 10.7 % (10/02/2013 03:45:00 [facility] Monocytes [2.0-12.0 %] 0.9 % (10/04/2013 07:03:00 [facility] 1.1 % (10/03/2013 03:28:00 [facility] 1.0 % (10/02/2013 03:45:00 [facility]) Eosinophils [0.0-4.0 %] 0.3 % (10/04/2013 07:03:00 [facility]) 0.5 % (10/03/2013 03:28:00 [facility]) 0.2 % (10/02/2013 03:45:00 [facility]) Basophils [0.0-1.0 %] 2.4 K/CMM (10/04/2013 07:03:00 [facility]) 2.1 K/CMM (10/03/2013 03:28:00 [facility]) 2.7 K/CMM (10/02/2013 03:45:00 [facility] Segs-Bands # [1.5-8.1 K/CMM] 1.0 K/CMM (10/04/2013 07:03:00 [facility]) 1.1 K/CMM (10/03/2013 03:28:00 [facility]) 0.9 K/CMM *LOW* (10/02/2013 03:45:00 [facility] Lymphocytes # [1.0-5.5 K/CMM] 0.4 K/CMM (10/04/2013 07:03:00 [facility]) 0.3 K/CMM (10/03/2013 03:28:00 [facility]) 0.4 K/CMM (10/02/2013 03:45:00 [facility] Monocytes # [0.0-0.8 K/CMM] 0.0 K/CMM (10/04/2013 07:03:00 [facility]) 0.0 K/CMM (10/03/2013 03:28:00 [facility]) 0.0 K/CMM (10/02/2013 03:45:00 [facility] Eosinophils # [0.0-0.5 K/CMM] 0.0 K/CMM (10/04/2013 07:03:00 [facility]) 0.0 K/CMM (10/03/2013 03:28:00 [facility]) 0.0 K/CMM (10/02/2013 03:45:00 [facility] Basophils # [0.0-0.2 K/CMM] 450 mg/dL (09/26/2013 04:30:00 [facility] Fibrinogen Lvl [230-510 mg/dL] <5 ug/ml (09/26/2013 04:30:00 [facility] FSP [<5 ug/ml] 0.94 ug/mL FEU 9 *NA* (09/26/2013 04:30:00 [facility]) D-Dimer 9Interpretive Data: In [facility]IC, quantitative D-Dimer is generally greater than 0.66 ug/mL FEU. Values of quantitative D-Dimer less than 0.40 ug/mL FEU have been reported to be associated with a low probability of deep vein thrombosis/pulmonary embolism. This test alone should not be used to rule out DVT/PE. 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 Completed: Sep, 08:10 by Rowena Kay MD RM: 318 - 1P, SE [id number] MOSS [id number] (: 1935) F Attending: Rowena Kay: Service: Internal Medicine Reason for Admission: HYPOXIA, UTI, PRINCE Working DRG[place] [facility] [place] status: None Specified=FULL CODECurrent diet: Isolation: None Documented Allergies: Iodine ASSISTED, penicillin, ciprofloxacin SUBJECTIVE Doing better ,no chest pain or sob,no nause or vomiting OBJECTIVE refused pt yesterday totally uncooperative 24hr Labs 10/06 0215 Glucose FHI731 H 10/05 2244 Glucose VHY157 H 10/05 1538 Glucose EXM109 H 10/05 1202 Glucose ACY681 H 10/05 0809 Glucose POC98 Lang still necessary (Yes/No): Line still necessary (Yes/No): VitalsTmp(F)[id number] 10/06 04:[id number]/7616------ 10/06 00:0098.903886/6216------ 10/05 21:3098.012992/6016------ 10/05 19:55 92 21% 10/05 19:53 1892 21% 24 Hr Tmax: 98.2F (36.78c) at 10/05 21:30Vital Signs are the last 5 in the past 48 hours. DateWt(kg)Wt(lb)Ht(cm)Ht(in)Method 10/06 93.86 206.50Measured 10/05 96.36 212.00Measured 10/04 95.08 209.19Measured 10/03 95.50 210.10Measured 10/02 95.20 209.44Measured 09/22 (initial) 90.91 200.60649.40 60.00Stated I&ORecordInOutBal 09/1723hr Tot 1313 1950 -632 1624hr Tot 2225 [id number] Medications (31) Active Scheduled Meds (15): 09/23/13 AMIODarone 200 mg PO Daily 09/23/13 chlordiazePOXIDE-clidinium (chlordiazePOXIDE-clidinium 5 mg-2.5 mg oral capsule) 1 cap PO BID-Before Meals 09/23/13 donepezil (Aricept) 5 mg PO Bedtime 09/29/13 enoxaparin (Lovenox) 30 mg SUB-Q [id number] 09/23/13 fluocinonide topical (fluocinonide topical 0.05% cream) 1 appl TOP BID 09/23/13 hydrocortisone topical (hydrocortisone topical 2.5% cream) 1 appl TOP BID 09/30/13 insulin aspart-insulin aspart protamine (NovoLOG Mix 70/30 FlexPen) 20 unit SUB-Q BID 09/23/13 isosorbide mononitrate 30 mg PO QAM 09/23/13 ketoconazole topical (ketoconazole topical 2% cream) 1 appl TOP BID 09/24/13 levothyroxine 150 microgram PO Q630AM 09/25/13 meropenem + Sodium Chloride 0.9% IV 100 mL 500 mg IVPB ABXQ8H 33.33 ml/hr 09/23/13 metoprolol (Toprol-XL 25 mg oral tablet, extended release) 25 mg PO Daily 09/23/13 montelukast 10 mg PO Bedtime 09/26/13 vancomycin 1 gm IVPB [id number] 200 ml/hr 09/23/13 venlafaxine (Effexor XR) 150 mg PO Bedtime Unscheduled Meds: None PRN Meds (14): 09/23/13 ALPRAZolam (ALPRAZOLam) 0.25 mg PO TID 09/22/13 Dextrose 50% in Water IV (Dextrose 50% Syringe) 12.5 gm IVP PRN 09/22/13 Dextrose 50% in Water IV (Dextrose 50% Syringe) 25 gm IVP PRN 09/26/13 atropine 0.5 mg IVP PRN 09/22/13 glucagon 1 mg IM PRN 09/22/13 insulin aspart 2 unit SUB-Q TID-Before Meals 09/22/13 insulin aspart 4 unit SUB-Q TID-Before Meals 09/22/13 insulin aspart 6 unit SUB-Q TID-Before Meals 09/22/13 insulin aspart 8 unit SUB-Q TID-Before Meals 09/22/13 insulin aspart 10 unit SUB-Q TID-Before Meals 09/27/13 ipratropium (ipratropium 0.02% inhalation solution) 0.5 mg NEB Q4H 09/27/13 levalbuterol (Xopenex) 1.25 mg NEB Q4H 09/26/13 nitroglycerin (nitroglycerin 0.4 mg sublingual tablet) 0.4 mg SL Q5Min 09/22/13 sodium chloride (Saline Flush 0.9%) 5 ml IVP PRN One Time Meds (2): 10/04/13 (not done) furosemide (Lasix) 20 mg PO ONCE 10/04/13 (Completed) furosemide (Lasix) 20 mg PO ONCE Continuous Infusions: None ASSESSMENT & EXAM GENERAL Alert and oriented x 3. no obvious distress HEENT: PERRLA. EOMI. Normocephalic, Atraumatic NECK: No jugular venous distention, no bruit. Thyroid is normal. LUNGS: Clear to auscultation and percussion. HEART: RRR. S1, S2 is normal. ABDOMEN: Positive bowel sounds, no organomegaly. No tenderness appreciated EXTREMITIES: No tenderness. Lower limbs, traceedema and no cyanosis. NEUROLOGIC: Grossly intact sensory and motor. SKIN: no rashes noted PLAN & TREATMENT DIAGNOSES & PROBLEMS see dc summary Ready for Discharge (Yes/No)? 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
--- OUTSIDE RECORDS SUMMARY | 2018-08-13 18:24 | XMS REPORT | Summary of Care ---
Author Organization Unknown Address Unknown Phone Unavailable Encounter [facility] Rodriguez(KIRSTIE) [id number] Date(s): 03/04/14 - 03/11/14 [facility] [place] [address] Discharge Disposition: Home Physician Attending: Ricardo Bocanegra DO Physician Admitting: Ricardo Bocanegra DO Reason for Visit CELLULITIS Vital Signs 1 2 3 Most recent to oldest [Reference Range]: 149.86 cm (03/04/14 10:09 PM) 149.86 cm (03/04/14 12:53 PM) Height 98.4 DegF (03/11/14 3:52 PM) 98 DegF (03/11/14 12:00 PM) 98.1 DegF (03/11/14 8:00 AM) Temperature Oral [96.4-99.1 DegF] 118 mmHg (03/11/14 3:52 PM) 127 mmHg (03/11/14 12:00 PM) 119 mmHg (03/11/14 8:00 AM) Systolic Blood Pressure [90-140 mmHg] 69 mmHg (03/11/14 3:52 PM) 68 mmHg (03/11/14 12:00 PM) 71 mmHg (03/11/14 8:00 AM) Diastolic Blood Pressure [60-90 mmHg] 18 BRMIN (03/11/14 3:52 PM) 18 BRMIN (03/11/14 12:00 PM) 18 BRMIN (03/11/14 8:00 AM) Respiratory Rate [14-20 BRMIN] 84 bpm (03/11/14 3:52 PM) 77 bpm (03/11/14 12:00 PM) 67 bpm (03/11/14 8:00 AM) Peripheral Pulse Rate [60-100 bpm] 86.364 kg (03/04/14 10:09 PM) 90.909 kg (03/04/14 12:53 PM) Weight 38.46 m2 (03/04/14 10:09 PM) 40.48 m2 (03/04/14 12:53 PM) Body Mass Index Problem List Condition Effective Dates Status Health Status Informant Asthma(Confirmed) Active Bypass(Confirmed) Resolved CAD - Coronary Active artery disease(Confirmed) COPD(Confirmed) Active Critical illness Active myopathy(Confirmed) Diabetes Active mellitus(Confirmed) Fibromyalgia(Confirm Active ed) History of - Active multiple allergies(Confirmed) Hyperlipidemia(Confi Active rmed) Hypertension(Confirm Active ed) 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 Allergies, Adverse Reactions, Alerts Substance Reaction Severity Status cefuroxime Active cephalexin Active ciprofloxacin Active Iodine [facility] Active penicillin Active sulfa drugs Active trimethoprim Active Medications acetaminophen 650 mg, Route: PO, Drug form: TAB, ONCE, Dosing Weight 90.909, kg, Priority: STA T, Start date: 03/04/14 15:06:00, Stop date: 03/04/14 15:06:00 Start Date: 03/04/14 Stop Date: 03/04/14 Status: Completed acetaminophen 650 mg, 2 tab, Route: PO, Drug form: TAB, Q6H, Dosing Weight 86.364, kg, PRN Roger n Score 1-3, Start date: 03/10/14 21:08:00, Duration: 30 day, Stop date: 4 21:07:00 Notes: Do not exceed 4 gm/day. (Same as: Tylenol) Start Date: 03/10/14 Stop Date: 03/11/14 Status: Discontinued ALPRAZOLam 0.25 mg, 1 tab, Route: PO, Drug form: TAB, TID, Dosing Weight 86.364, kg, PRN as needed for anxiety, Start date: 03/04/14 23:57:00, Duration: 30 day, Stop date: 04/03/14 23:56:00 Notes: With food or milk(Same as: Xanax) Start Date: 03/04/14 Stop Date: 03/11/14 Status: Discontinued AMIODarone 100 mg, 0.5 tab, Route: PO, Drug form: TAB, Daily, Dosing Weight 86.364, kg, Sta rt date: 03/05/14 9:00:00, Duration: 30 day, Stop date: 04/03/14 9:00:00 Notes: (Same as: Cordarone) Start Date: 03/05/14 Stop Date: 03/11/14 Status: Discontinued Aricept 5 mg, 1 tab, Route: PO, Drug form: TAB, Bedtime, Dosing Weight 86.364, kg, Start date: 03/05/14 0:15:00, Duration: 30 day, Stop date: 04/03/14 21:00:00 Notes: (Same as: Aricept) Start Date: 03/05/14 Stop Date: 03/11/14 Status: Discontinued atorvastatin 40 mg, 1 tab, Route: PO, Drug form: TAB, Bedtime, Dosing Weight 86.364, kg, Star t date: 03/05/14 0:15:00, Duration: 30 day, Stop date: 04/03/14 21:00:00 Notes: (Same as: Lipitor) Start Date: 03/05/14 Stop Date: 03/11/14 Status: Discontinued atorvastatin 40 mg oral tablet 40 mg=1 tab, PO, Bedtime, # 90 tab, 0 Refill(s) Start Date: 03/04/14 Status: Ordered Benadryl 25 mg, Route: IVP, ONCE, Dosing Weight 90.909, kg, Priority: STAT, Start date: 0 03/04/14 15:27:00, Stop date: 03/04/14 15:27:00 Start Date: 03/04/14 Stop Date: 03/04/14 Status: Completed Benadryl 25 mg, 0.5 mL, Route: IVP, Drug form: INJ, ONCE, Dosing Weight 90.909, kg, PRN A llergic reaction, Start date: 03/04/14 21:47:00 Notes: (Same as: Benadryl) Start Date: 03/04/14 Stop Date: 03/11/14 Status: Discontinued Benadryl 25 mg, 1 tab, Route: PO, Drug form: TAB, TID, Dosing Weight 86.364, kg, PRN Everette rgic reaction, Start date: 03/05/14 9:43:00, Duration: 30 day, Stop date: 9:42:00 Start Date: 03/05/14 Stop Date: 03/11/14 Status: Discontinued Calaclear topical lotion 1 appl, Route: TOP, BID, Drug form: LOT, Start date: 03/11/14 9:00:00, Duration: 30 day, Stop date: 04/09/14 17:00:00 Notes: Same as: Sarna Sensitive Non-Formulary Drug Start Date: 03/11/14 Stop Date: 03/11/14 Status: Discontinued chlordiazePOXIDE-clidinium 5 mg-2.5 mg oral capsule 1 cap, Route: PO, Drug Form: CAP, Dosing Weight 86.364, kg, BID-Before Meals, St art date: 03/05/14 7:30:00, Duration: 30 day, Stop date: 04/03/14 16:30:00 Notes: (Same As: Librax) Start Date: 03/05/14 Stop Date: 03/11/14 Status: Discontinued clindamycin 600 mg, Route: IVPB, ONCE, Dosing Weight 90.909, kg, Priority: STAT, Start date: 03/04/14 15:27:00, Stop date: 03/04/14 15:27:00 Start Date: 03/04/14 Stop Date: 03/04/14 Status: Completed clindamycin + Sodium Chloride 0.9% IV 100 mL 600 mg, 4 mL, Route: IVPB, [id number], Dosing Weight 90.909, kg, Priority: STAT, Sta rt date: 03/04/14 21:47:00, Duration: 30 day, Stop date: 04/03/14 10:00:00 Notes: (clindamycin 150 mg/1 ml (600 mg/4 ml VL) INJ) (Same As: Cleocin) Start Date: 03/04/14 Stop Date: 03/05/14 Status: Discontinued cyclobenzaprine 5 mg, 0.5 tab, Route: PO, Drug form: TAB, TID, Dosing Weight 86.364, kg, PRN as needed for muscle spasm, Start date: 03/05/14 0:00:00, Duration: 30 day, Stop da te: 04/03/14 23:59:00 Notes: (Same As: Flexeril) Start Date: 03/05/14 Stop Date: 03/11/14 Status: Discontinued cyclobenzaprine 5 mg oral tablet 5 mg, PO, TID, Muscle spasm, # 30 tab, 0 Refill(s) Start Date: 03/04/14 Stop Date: 03/14/14 Status: Ordered Dextrose 50% Syringe 12.5 gm, 25 mL, Route: IVP, Drug Form: INJ, Dosing Weight 90.909, kg, PRN, PRN B lood Glucose Results, Start date: 03/04/14 21:50:00, Duration: 30 day, Stop date : 04/03/14 21:49:00 Start Date: 03/04/14 Stop Date: 03/11/14 Status: Discontinued Dextrose 50% Syringe 25 gm, 50 mL, Route: IVP, Drug Form: INJ, Dosing Weight 90.909, kg, PRN, PRN Blo od Glucose Results, Start date: 03/04/14 21:50:00, Duration: 30 day, Stop date: 04/03/14 21:49:00 Start Date: 03/04/14 Stop Date: 03/11/14 Status: Discontinued Effexor XR 150 mg, 1 cap, Route: PO, Drug form: ERCAP, Bedtime, Dosing Weight 86.364, kg, S tart date: 03/05/14 0:16:00, Duration: 30 day, Stop date: 04/03/14 21:00:00 Notes: Do not open, crush, or chew. (Same As: Effexor XR) Start Date: 03/05/14 Stop Date: 03/11/14 Status: Discontinued enoxaparin 40 mg, Route: SUB-Q, Drug form: INJ, [id number], Dosing Weight 86.364, kg, Start d ate: 03/05/14 10:00:00, Duration: 30 day, Stop date: 04/03/14 10:00:00 Start Date: 03/05/14 Stop Date: 03/05/14 Status: Deleted fluticasone nasal 0.05 mg/inh spray 2 spray, NASAL, BID, Allergies, # 16 gm, 0 Refill(s) Start Date: 03/04/14 Status: Ordered fluticasone nasal 0.05 mg/inh spray 100 microgram, Route: NASAL, Drug Form: SPRY, Dosing Weight 86.364, kg, BID, PRN Allergies, Start date: 03/05/14 0:01:00, Duration: 30 day, Stop date: 04/04/14 0:00:00 Notes: (Same as: Flonase) Start Date: 03/05/14 Stop Date: 03/11/14 Status: Discontinued glucagon 1 mg, Route: IM, Drug form: PDR/INJ, PRN, Dosing Weight 90.909, kg, PRN Blood Gl ucose Results, Start date: 03/04/14 21:50:00, Duration: 30 day, Stop date: 04/03 21:49:00 Start Date: 03/04/14 Stop Date: 03/11/14 Status: Discontinued Humalog Mix 75/25 Pen Route: SUB-Q, Drug form: SUSP, BID, Dosing Weight 86.364, kg, Start date: 9:00:00, Duration: 30 day, Stop date: 04/03/14 17:00:00 Start Date: 03/05/14 Stop Date: 03/05/14 Status: Deleted Humalog Mix 75/25 Pen subcutaneous suspension 33 unit, SUB-Q, BID, # 3 ml, 0 Refill(s) Start Date: 03/04/14 Status: Ordered hydrochlorothiazide 25 mg oral tablet 12.5 mg, 0.5 tab, Route: PO, Drug form: TAB, Daily, Start date: 03/05/14 9:00:00 , Duration: 30 day, Stop date: 04/03/14 9:00:00 Notes: (Same as: Hydrodiuril) With food. Start Date: 03/05/14 Stop Date: 03/11/14 Status: Discontinued hydrochlorothiazide-lisinopril 12.5 mg-20 mg oral tablet 1 tab, PO, Daily, # 30 tab, 0 Refill(s) Start Date: 03/04/14 Status: Ordered hydrochlorothiazide-lisinopril 12.5 mg-20 mg oral tablet 1 tab, Route: PO, Drug Form: TAB, Dosing Weight 86.364, kg, Daily, Start date: 0 03/05/14 9:00:00, Duration: 30 day, Stop date: 04/03/14 9:00:00 Start Date: 03/05/14 Stop Date: 03/05/14 Status: Deleted ibuprofen 400 mg, Route: PO, Drug form: TAB, ONCE, Dosing Weight 90.909, kg, Priority: STA T, Start date: 03/04/14 15:06:00, Stop date: 03/04/14 15:06:00 Start Date: 03/04/14 Stop Date: 03/04/14 Status: Completed insulin aspart 4 unit, 0.04 mL, Route: SUB-Q, Drug form: SOLN, TID-Before Meals, Dosing Weight 90.909, kg, PRN Blood Glucose Results, Start date: 03/04/14 21:50:00, Duration: 30 day, Stop date: 04/03/14 21:49:00 Notes: Roll in palms of hands gently; Do not shake vigorously. (Same as: NovoLO G)"single patient use only" Stable for 28 days at room temperature.Expires in _ ____ days from Date Start Date: 03/04/14 Stop Date: 03/11/14 Status: Discontinued insulin aspart 2 unit, 0.02 mL, Route: SUB-Q, Drug form: SOLN, TID-Before Meals, Dosing Weight 90.909, kg, PRN Blood Glucose Results, Start date: 03/04/14 21:50:00, Duration: 30 day, Stop date: 04/03/14 21:49:00 Notes: Roll in palms of hands gently; Do not shake vigorously. (Same as: NovoLO G)"single patient use only" Stable for 28 days at room temperature.Expires in _ ____ days from Date Start Date: 03/04/14 Stop Date: 03/11/14 Status: Discontinued insulin aspart 6 unit, 0.06 mL, Route: SUB-Q, Drug form: SOLN, TID-Before Meals, Dosing Weight 90.909, kg, PRN Blood Glucose Results, Start date: 03/04/14 21:50:00, Duration: 30 day, Stop date: 04/03/14 21:49:00 Notes: Roll in palms of hands gently; Do not shake vigorously. (Same as: NovoLO G)"single patient use only" Stable for 28 days at room temperature.Expires in _ ____ days from Date Start Date: 03/04/14 Stop Date: 03/11/14 Status: Discontinued insulin aspart 8 unit, 0.08 mL, Route: SUB-Q, Drug form: SOLN, TID-Before Meals, Dosing Weight 90.909, kg, PRN Blood Glucose Results, Start date: 03/04/14 21:50:00, Duration: 30 day, Stop date: 04/03/14 21:49:00 Notes: Roll in palms of hands gently; Do not shake vigorously. (Same as: NovoLO G)"single patient use only" Stable for 28 days at room temperature.Expires in _ ____ days from Date Start Date: 03/04/14 Stop Date: 03/11/14 Status: Discontinued insulin aspart 10 unit, 0.1 mL, Route: SUB-Q, Drug form: SOLN, TID-Before Meals, Dosing Weight 90.909, kg, PRN Blood Glucose Results, Start date: 03/04/14 21:50:00, Duration: 30 day, Stop date: 04/03/14 21:49:00 Notes: Roll in palms of hands gently; Do not shake vigorously. (Same as: NovoLO G)"single patient use only" Stable for 28 days at room temperature.Expires in _ ____ days from Date Start Date: 03/04/14 Stop Date: 03/11/14 Status: Discontinued isosorbide mononitrate 30 mg, 1 tab, Route: PO, Drug form: ERTAB, Bedtime, Dosing Weight 86.364, kg, St art date: 03/05/14 0:16:00, Duration: 30 day, Stop date: 04/03/14 21:00:00 Notes: (Same as:Imdur)"Do Not Crush" Take on empty stomach/ full glass of water . Do not crush Start Date: 03/05/14 Stop Date: 03/11/14 Status: Discontinued levothyroxine 150 microgram, 1 tab, Route: PO, Drug form: TAB, [id number], Dosing Weight 86.364, k g, Start date: 03/05/14 6:30:00, Duration: 30 day, Stop date: 04/03/14 6:30:00 Notes: Take 1 hour before or 2 hours after meal; Enteral feeds may interefere wi th the absorption of this medication. (Same as: Levothroid) Start Date: 03/05/14 Stop Date: 03/11/14 Status: Discontinued Lopressor 25 mg, 1 tab, Route: PO, Drug form: TAB, Q12H, Dosing Weight 86.364, kg, Start d ate: 03/05/14 0:18:00, Duration: 30 day, Stop date: 04/03/14 21:00:00 Notes: (Same as: Lopressor) Start Date: 03/05/14 Stop Date: 03/11/14 Status: Discontinued Lovenox 30 mg, 0.3 mL, Route: SUB-Q, Drug form: INJ, [id number], Start date: 03/05/14 10:0 0:00, Duration: 30 day, Stop date: 04/03/14 10:00:00 Notes: (Same as: Lovenox) Start Date: 03/05/14 Stop Date: 03/11/14 Status: Discontinued Macrobid 100 mg, Route: PO, Drug form: CAP, [id number], Dosing Weight 86.364, kg, Start date : 03/07/14 16:00:00, Duration: 30 day, Stop date: 04/06/14 4:00:00 Start Date: 03/07/14 Stop Date: 03/07/14 Status: Deleted meclizine 12.5 mg, 1 tab, Route: PO, Drug form: TAB, TID, Dosing Weight 86.364, kg, PRN as needed for dizziness, Start date: 03/05/14 0:04:00, Duration: 30 day, Stop date: 04/04/14 0:03:00 Notes: (Same as: Antivert) Start Date: 03/05/14 Stop Date: 03/11/14 Status: Discontinued meclizine 12.5 mg oral tablet 12.5 mg=1 tab, PO, TID, for dizziness, # 60 tab, 0 Refill(s) Start Date: 03/04/14 Status: Ordered meropenem + Sodium Chloride 0.9% IV 100 mL 500 mg, Route: IVPB, [id number], Dosing Weight 86.364, kg, CrCL=26 -49 ml/min, Exten ded infusion, infuse over 3 hours, Start date: 03/05/14 21:00:00, Duration: 30 day, Stop date: 04/04/14 13:00:00 Notes: Same as Merrem.. Start Date: 03/05/14 Stop Date: 03/07/14 Status: Discontinued montelukast 10 mg, 1 tab, Route: PO, Drug form: TAB, Bedtime, Dosing Weight 86.364, kg, Star t date: 03/05/14 0:17:00, Duration: 30 day, Stop date: 04/03/14 21:00:00 Notes: (Same as:Singulair) Start Date: 03/05/14 Stop Date: 03/11/14 Status: Discontinued morphine Sulfate 4 mg, 2 mL, Route: IVP, Drug form: INJ, Q4H, Dosing Weight 90.909, kg, PRN Pain, Start date: 03/04/14 21:47:00, Duration: 30 day, Stop date: 04/03/14 21:46:00 Notes: (Same as:MORPhine Sulfate) Start Date: 03/04/14 Stop Date: 03/11/14 Status: Discontinued naproxen 500 mg, 1 tab, Route: PO, Drug form: TAB, Q12H, Dosing Weight 86.364, kg, Start date: 03/05/14 0:17:00, Duration: 30 day, Stop date: 04/03/14 21:00:00 Notes: (Same as: Naprosyn) Take with food. Start Date: 03/05/14 Stop Date: 03/11/14 Status: Discontinued naproxen 500 mg oral tablet 500 mg=1 tab, PO, Q12H, # 60 tab, 0 Refill(s) Start Date: 03/04/14 Status: Ordered Nasonex 50 mcg/inh nasal spray 2 spray, NASAL, Daily, for allergy symptoms, # 17 gm, 0 Refill(s) Start Date: 03/04/14 Status: Ordered Nasonex 50 mcg/inh nasal spray 100 microgram, 2 spray, Route: NASAL, Daily, Drug form: SPRY, PRN as needed for allergy symptoms, Start date: 03/05/14 0:07:00, Duration: 30 day, Stop date: 0:06:00 Start Date: 03/05/14 Stop Date: 03/05/14 Status: Deleted NexIUM 40 mg, Route: PO, Drug form: ECCAP, BID-Before Meals, Dosing Weight 86.364, kg, Start date: 03/05/14 7:30:00, Duration: 30 day, Stop date: 04/03/14 16:30:00 Start Date: 03/05/14 Stop Date: 03/05/14 Status: Deleted NexIUM 40 mg oral delayed release capsule 40 mg=1 cap, PO, BID-Before Meals, # 30 cap, 0 Refill(s) Start Date: 03/04/14 Status: Ordered nitroglycerin 0.4 mg sublingual tablet 0.4 mg, 1 tab, Route: SL, Drug form: TAB, Q5Min, Dosing Weight 86.364, kg, PRN a s needed for chest pain, Start date: 03/05/14 0:08:00, Duration: 30 day, Stop da te: 04/04/14 0:07:00 Notes: (Same as:Nitroquick, Nitrostat)"Do Not Crush" Sublingual tablet Start Date: 03/05/14 Stop Date: 03/11/14 Status: Discontinued nitroglycerin 0.4 mg sublingual tablet 0.4 mg=1 tab, SL, Q5Min, Chest pain, # 100 tab, 0 Refill(s) Start Date: 03/04/14 Status: Ordered NovoLOG Mix 70/30 FlexPen 33 unit, 0.33 mL, Route: SUB-Q, Drug form: INJ, BID, Start date: 03/05/14 9:00:0 0, Duration: 30 day, Stop date: 04/03/14 21:00:00 Notes: Roll in palms of hands gently; Do not shake vigorously. (Same as: NovoLO G Mix)"single patient use only" Stable for 14 days at room temperatureExpires i n days from Date Start Date: 03/05/14 Stop Date: 03/11/14 Status: Discontinued potassium chloride 10 mEq oral tablet, extended release 10 mEq, 1 tab, Route: PO, Drug form: ERTAB, Daily, Dosing Weight 86.364, kg, Sta rt date: 03/05/14 9:00:00, Duration: 30 day, Stop date: 04/03/14 9:00:00 Notes: (Same as: K-Dur 10)"Do Not Crush" With food and full glass of water Start Date: 03/05/14 Stop Date: 03/11/14 Status: Discontinued pramipexole 0.125 mg, 1 tab, Route: PO, Drug form: TAB, TID, Dosing Weight 86.364, kg, Start date: 03/05/14 0:17:00, Duration: 30 day, Stop date: 04/03/14 21:00:00 Notes: (Same as: Mirapex) Start Date: 03/05/14 Stop Date: 03/11/14 Status: Discontinued pramipexole 0.125 mg oral tablet 0.125 mg=1 tab, PO, TID, # 90 tab, 0 Refill(s) Start Date: 03/04/14 Status: Ordered Prinivil 20 mg, 1 tab, Route: PO, Drug form: TAB, Daily, Start date: 03/05/14 9:00:00, Du ration: 30 day, Stop date: 04/03/14 9:00:00 Notes: (Same as: Prinivil, Zestril) Start Date: 03/05/14 Stop Date: 03/11/14 Status: Discontinued Protonix 40 mg, 1 tab, Route: PO, Drug form: ECTAB, BID-Before Meals, Start date: 4 7:30:00, Duration: 30 day, Stop date: 04/03/14 16:30:00 Notes: Tablet should not be chewed or crushed.(Same as: Protonix) Start Date: 03/05/14 Stop Date: 03/11/14 Status: Discontinued Saline Flush 0.9% 5 mL, Route: IVP, Drug Form: INJ, Dosing Weight 90.909, kg, PRN, PRN Line Flush, Start date: 03/04/14 15:06:00, Duration: 30 day, Stop date: 04/03/14 15:05:00 Notes: Same as: BD Posiflush Sterile Start Date: 03/04/14 Stop Date: 03/04/14 Status: Discontinued Sodium Chloride 0.9% (Bolus) IV 1,000 mL, Infuse Over: 1 hr, Route: IV, ONCE, Priority: STAT, Dosing Weight 90.9 09 kg, Start date: 03/04/14 15:06:00, Duration: 1 doses or times, Stop date: 15:06:00 Start Date: 03/04/14 Stop Date: 03/04/14 Status: Completed Sodium Chloride 0.9% IV 500 mL 500 mL, Rate: 125 ml/hr, Infuse over: 4 hr, Route: IV, Dosing Weight 90.909 kg, Total Volume: 500, Priority: STAT, Start date: 03/04/14 15:06:00, Duration: 30 d ay, Stop date: 04/03/14 15:05:00 Start Date: 03/04/14 Stop Date: 03/04/14 Status: Discontinued vancomycin 1 gm, 200 mL, Route: IVPB, Drug form: INJ, ONCE, Dosing Weight 90.909, kg, Prior ity: STAT, Start date: 03/04/14 15:27:00, Stop date: 03/04/14 15:27:00 Start Date: 03/04/14 Stop Date: 03/04/14 Status: Completed vancomycin 1 gm, 200 mL, Route: IVPB, Drug form: INJ, [id number], Dosing Weight 90.909, kg, St art date: 03/05/14 9:00:00, Duration: 30 day, Stop date: 04/03/14 21:00:00 Start Date: 03/05/14 Stop Date: 03/05/14 Status: Discontinued vancomycin 1 gm, 200 mL, Route: IVPB, Drug form: INJ, [id number], Dosing Weight 86.364, kg, St art date: 03/05/14 20:00:00, Duration: 30 day, Stop date: 04/04/14 8:00:00 Start Date: 03/05/14 Stop Date: 03/11/14 Status: Discontinued Zofran 4 mg, 2 mL, Route: IV, Drug form: INJ, Q8H, Dosing Weight 90.909, kg, PRN Nausea , Start date: 03/04/14 21:47:00, Duration: 30 day, Stop date: 04/03/14 21:46:00 Notes: (Same as: Zofran) Start Date: 03/04/14 Stop Date: 03/11/14 Status: Discontinued Results ELECTROLYTES 1 2 3 Most recent to oldest [Reference Range]: 139 mEq/L (03/08/14 6:33 AM) 140 mEq/L (03/06/14 4:41 AM) 138 mEq/L (03/04/14 3:29 PM) Sodium Lvl [135-145 mEq/L] 4.2 mEq/L (03/08/14 6:33 AM) 4.3 mEq/L (03/06/14 4:41 AM) 4.0 mEq/L (03/04/14 3:29 PM) Potassium Lvl [3.5-5.1 mEq/L] 104 mEq/L (03/08/14 6:33 AM) 105 mEq/L (03/06/14 4:41 AM) 102 mEq/L (03/04/14 3:29 PM) Chloride Lvl [95-109 mEq/L] 31 mEq/L (03/08/14 6:33 AM) 29 mEq/L (03/06/14 4:41 AM) 30 mEq/L (03/04/14 3:29 PM) CO2 [24-32 mEq/L] 8.2 mEq/L *LOW* (03/08/14 6:33 AM) 10.3 mEq/L (03/06/14 4:41 AM) 10.0 mEq/L (03/04/14 3:29 PM) AGAP [10.0-20.0 mEq/L] CHEM PANEL 1 2 3 Most recent to oldest [Reference Range]: 1.0 mg/dL (03/08/14 6:33 AM) 1.1 mg/dL (03/06/14 4:41 AM) 1.1 mg/dL (03/05/14 12:21 PM) Creatinine Lvl [0.5-1.4 mg/dL] 54 mL/min/1.73m2 1 *NA* (03/08/14 6:33 AM) 48 mL/min/1.73m2 2 *NA* (03/06/14 4:41 AM) 48 mL/min/1.73m2 3 *NA* (03/05/14 12:21 PM) eGFR 21 mg/dL (03/08/14 6:33 AM) 18 mg/dL (03/06/14 4:41 AM) 22 mg/dL (03/04/14 3:29 PM) BUN [7-22 mg/dL] 18 (03/04/14 3:29 PM) B/C Ratio [6-25] 102 mg/dL 4 *HI* (03/08/14 6:33 AM) 121 mg/dL 5 *HI* (03/06/14 4:41 AM) 122 mg/dL 6 *HI* (03/04/14 3:29 PM) Glucose Lvl [70-99 mg/dL] 6.8 g/dL (03/04/14 3:29 PM) Total Protein [6.4-8.4 g/dL] 3.7 g/dL (03/04/14 3:29 PM) Albumin Lvl [3.5-5.0 g/dL] 3.1 g/dL (03/04/14 3:29 PM) Globulin [2.0-4.0 g/dL] 1.2 (03/04/14 3:29 PM) A/G Ratio [0.7-1.6] 9.0 mg/dL (03/08/14 6:33 AM) 8.7 mg/dL (03/06/14 4:41 AM) 9.2 mg/dL (03/04/14 3:29 PM) Calcium Lvl [8.5-10.5 mg/dL] 38 unit/L (03/04/14 3:29 PM) ALT [0-65 unit/L] 44 unit/L *HI* (03/04/14 3:29 PM) AST [0-37 unit/L] 113 unit/L (03/04/14 3:29 PM) Alk Phos [39-136 unit/L] 0.5 mg/dL (03/04/14 3:29 PM) Bili Total [0.2-1.3 mg/dL] 1.3 mMol/L (03/04/14 5:10 PM) 1.3 mMol/L (03/04/14 3:29 PM) Lactic Acid Lvl [0.5-2.2 mMol/L] 1Result Comment: [...] values reflect the clinical guidelines of the [place] [employer]. 5Interpretive Data: Adult reference range values reflect the clinical guidelines of the [place] [employer]. 6Interpretive Data: Adult reference range values reflect the clinical guidelines of the [place] [employer]. CARDIAC ENZYMES 1 2 3 Most recent to oldest [Reference Range]: 85 unit/L (03/04/14 3:29 PM) Total CK [12-191 unit/L] TOXICOLOGY 1 2 3 Most recent to oldest [Reference Range]: 0800 *NA* (03/07/14 6:53 AM) Vanco Tr TND 15.6 ug/ml 7 *NA* (03/07/14 6:53 AM) Barneyo Tr 7Interpretive Data: Therapeutic Range: Trough: 10 - 20 ug/mL Peak: 20 - 40 ug/mL Potential Toxicity: >80 ug/mL URINE AND STOOL 1 2 3 Most recent to oldest [Reference Range]: Slight *ABN* (03/04/14 5:37 PM) UA Turbidity [Clear] Ltyellow *NA* (03/04/14 5:37 PM) UA Color 6.0 (03/04/14 5:37 PM) UA pH [5.0-8.0] 1.006 (03/04/14 5:37 PM) UA Spec Grav [<=1.030] Negative mg/dL *NA* (03/04/14 5:37 PM) UA Glucose [Negative mg/dL] Negative (03/04/14 5:37 PM) UA Blood [Negative] Negative mg/dL *NA* (03/04/14 5:37 PM) UA Ketones [Negative mg/dL] Negative mg/dL (03/04/14 5:37 PM) UA Protein [Negative mg/dL] <=1.0 mg/dL *NA* (03/04/14 5:37 PM) UA Urobilinogen [0.1-1.0 mg/dL] Negative *NA* (03/04/14 5:37 PM) UA Bili [Negative] Negative (03/04/14 5:37 PM) UA Leuk Est [Negative] Negative (03/04/14 5:37 PM) UA Nitrite [Negative] 2 /HPF (03/04/14 5:37 PM) UA WBC [0-5 /HPF] 1 /HPF (03/04/14 5:37 PM) UA RBC [0-2 /HPF] Occasional /HPF *NA* (03/04/14 5:37 PM) UA Bacteria [None Seen /HPF] Few /LPF *NA* (03/04/14 5:37 PM) UA Sq Epi [Few /LPF] HEMATOLOGY 1 2 3 Most recent to oldest [Reference Range]: 5.0 K/CMM (03/08/14 6:33 AM) 4.5 K/CMM (03/06/14 4:41 AM) 4.2 K/CMM (03/05/14 5:58 AM) WBC [3.7-10.4 K/CMM] 3.42 M/CMM *LOW* (03/08/14 6:33 AM) 3.15 M/CMM *LOW* (03/06/14 4:41 AM) 3.23 M/CMM *LOW* (03/05/14 5:58 AM) RBC [4.20-5.40 M/CMM] 10.3 g/dL *LOW* (03/08/14 6:33 AM) 9.2 g/dL *LOW* (03/06/14 4:41 AM) 9.6 g/dL *LOW* (03/05/14 5:58 AM) Hgb [12.0-16.0 g/dL] 30.3 % *LOW* (03/08/14 6:33 AM) 27.7 % *LOW* (03/06/14 4:41 AM) 28.9 % *LOW* (03/05/14 5:58 AM) Hct [36.0-48.0 %] 88.7 fL (03/08/14 6:33 AM) 87.9 fL (03/06/14 4:41 AM) 89.7 fL (03/05/14 5:58 AM) MCV [81.0-99.0 fL] 30.0 pg (03/08/14 6:33 AM) 29.3 pg (03/06/14 4:41 AM) 29.9 pg (03/05/14 5:58 AM) MCH [27.0-31.0 pg] 33.8 g/dL (03/08/14 6:33 AM) 33.4 g/dL (03/06/14 4:41 AM) 33.3 g/dL (03/05/14 5:58 AM) MCHC [32.0-36.0 g/dL] 13.7 % (03/08/14 6:33 AM) 13.8 % (03/06/14 4:41 AM) 14.4 % (03/05/14 5:58 AM) RDW [11.5-14.5 %] 154 K/CMM (03/08/14 6:33 AM) 144 K/CMM (03/06/14 4:41 AM) 131 K/CMM *LOW* (03/05/14 12:21 PM) Platelet [133-450 K/CMM] 6.8 fL *LOW* (03/08/14 6:33 AM) 6.9 fL *LOW* (03/06/14 4:41 AM) 7.3 fL *LOW* (03/05/14 5:58 AM) MPV [7.4-10.4 fL] 68.5 % (03/08/14 6:33 AM) 63.4 % (03/06/14 4:41 AM) 63.3 % (03/05/14 5:58 AM) Segs [45.0-75.0 %] 22.2 % (03/08/14 6:33 AM) 26.7 % (03/06/14 4:41 AM) 27.3 % (03/05/14 5:58 AM) Lymphocytes [20.0-40.0 %] 8.0 % (03/08/14 6:33 AM) 7.6 % (03/06/14 4:41 AM) 7.2 % (03/05/14 5:58 AM) Monocytes [2.0-12.0 %] 0.8 % (03/08/14 6:33 AM) 1.7 % (03/06/14 4:41 AM) 1.5 % (03/05/14 5:58 AM) Eosinophils [0.0-4.0 %] 0.5 % (03/08/14 6:33 AM) 0.6 % (03/06/14 4:41 AM) 0.7 % (03/05/14 5:58 AM) Basophils [0.0-1.0 %] 3.4 K/CMM (03/08/14 6:33 AM) 2.9 K/CMM (03/06/14 4:41 AM) 2.6 K/CMM (03/05/14 5:58 AM) Segs-Bands # [1.5-8.1 K/CMM] 1.1 K/CMM (03/08/14 6:33 AM) 1.2 K/CMM (03/06/14 4:41 AM) 1.1 K/CMM (03/05/14 5:58 AM) Lymphocytes # [1.0-5.5 K/CMM] 0.4 K/CMM (03/08/14 6:33 AM) 0.3 K/CMM (03/06/14 4:41 AM) 0.3 K/CMM (03/05/14 5:58 AM) Monocytes # [0.0-0.8 K/CMM] 0.1 K/CMM (03/06/14 4:41 AM) 0.1 K/CMM (03/05/14 5:58 AM) 0.1 K/CMM (03/04/14 3:29 PM) Eosinophils # [0.0-0.5 K/CMM] 13.1 seconds (03/09/14 10:29 AM) PT [12.0-14.7 seconds] 1.00 8 (03/09/14 10:29 AM) INR [0.85-1.17] 36.1 seconds 9 *HI* (03/05/14 12:21 PM) PTT [22.9-35.8 seconds] 8Interpretive Data: RECOMMENDED RANGES FOR PROTIME INR: 2.0-3.0 for most medical and surgical thromboembolic states. 2.5-3.5 for artificial heart valves and recurrent embolism. INR SHOULD BE USED ONLY FOR PATIENTS ON STABLE ANTICOAGULANT THERAPY. 9Interpretive Data: Heparin Therapeutic Range: 57 - 92 Seconds Medications Administered During Your Visit No data available for this section Immunizations Vaccine Date Refusal Reason pneumococcal 13-valent vaccine1 7/24/14 1Admin Note: pt got it at [facility]=apr 2012 Social History Social History Type Response Smoking Status Never smoker, Exposure to Tobacco Smoke None, Cigarette Smoking Last 365 Days No, Reg Smoking Cessation Counseling No Assessment and Plan Extracted from: Title: Clinical Document Author: SahraRicardo DO Date: 03/11/14 Progress Daily [facility] [place] SUBJECTIVE Pt is feeling well this morning but for itching in her legs. denies fever or chills OBJECTIVE Vital Signs (last 24 hrs) Last Charted Minimum Maximum Temp98.1 (MAR 11 08:00)L 96.2 (MAR 11 04:00)98.2 (MAR 10 12:00) Heart Rate67 (MAR 11 08:00)67 (MAR 11 08:00)95 (MAR 10 20:00) Resp Rate 18 (MAR 11 08:00)16 (MAR 10 20:00)18 (MAR 10 12:00) EGN385 (MAR 11 08:00)119 (MAR 11 08:00)H 150 (MAR 10 20:00) DBP71 (MAR 11 08:00)L 56 (MAR 10 20:00)72 (MAR 10 16:00) Labs (Last four charted values) WBC 5.0(MAR 08)4.5(MAR 06)4.2(MAR 05)6.0(MAR 04) Hgb L 10.3(MAR 08)L 9.2(MAR 06)L 9.6(MAR 05)L 11.0(MAR 04) Hct L 30.3(MAR 08)L 27.7(MAR 06)L 28.9(MAR 05)L 33.4(MAR 04) Plt 154(MAR 08)144(MAR 06)L 131(MAR 05)L 125(MAR 05) Na 139(MAR 08)140(MAR 06)138(MAR 04) K 4.2(MAR 08)4.3(MAR 06)4.0(MAR 04) CO2 31(MAR 08)29(MAR 06)30(MAR 04) Cl 104(MAR 08)105(MAR 06)102(MAR 04) Cr 1.0(MAR 08)1.1(MAR 06)1.1(MAR 05)1.2(MAR 04) BUN 21(MAR 08)18(MAR 06)22(MAR 04) Glucose Random H 102(MAR 08)H 121(MAR 06)H 122(MAR 04) Ca 9.0(MAR 08)8.7(MAR 06)9.2(MAR 04) PT 13.1(MAR 09) INR 1.00(MAR 09) PTT H 36.1(MAR 05) Total CK 85(MAR 04) Input/Output RecordInOutBal 4hr Tot 200 0 200 /2324hr Tot 1580 0 1580 ASSESSMENT & EXAM Gen. Pt is AOX4 in no acute distress HEET: Normocephalic, nontraumatic. NECK: Supple, no JVD or Lymphadenopathy LUNGS: Clear on auscultation B/l with no wheezing or crackles HEART: S1, S2.RRR with no murmurs ABDOMEN: Soft, NT/ND with good BS CENTRAL NERVOUS SYSTEM: Patient moving all extremities grossly well. LOWER EXTREMITIES: b/l LE swelling and redness has significantly improved PLAN & TREATMENT Pt admitted with LE swelling and redness concerning for Cellulitis -Appreciated ID consult -C/w Vanc -F/u with TTE report -Awaiting SNF placement DIAGNOSES & PROBLEMS Bacteremia Cellulitis UTI DM Fibromyalgia HLD BANDAR Depression Scheduled Meds ():AMIODarone, atorvastatin, chlordiazePOXIDE-clidinium (chlordiazePOXIDE-clidinium 5 mg-2.5 mg oral capsule), donepezil (Aricept), enoxaparin (Lovenox), hydrochlorothiazide (hydrochlorothiazide 25 mg oral tablet), insulin aspart-insulin aspart protamine (NovoLOG Mix 70/30 FlexPen), isosorbide mononitrate, levothyroxine, lisinopril (Prinivil), metoprolol (Lopressor), montelukast, naproxen, pantoprazole (Protonix), potassium chloride (potassium chloride 10 mEq oral tablet, extended release), pramipexole, pramoxine topical (Calaclear topical lotion), vancomycin, venlafaxine (Effexor XR) Unscheduled Meds: None PRN Meds (17):ALPRAZolam (ALPRAZOLam), Dextrose 50% in Water IV (Dextrose 50% Syringe), Dextrose 50% in Water IV (Dextrose 50% Syringe), acetaminophen, cyclobenzaprine, diphenhydrAMINE (Benadryl), fluticasone nasal (fluticasone nasal 0.05 mg/inh spray), glucagon, insulin aspart, insulin aspart, insulin aspart, insulin aspart, insulin aspart, meclizine, morphine Sulfate, nitroglycerin (nitroglycerin 0.4 mg sublingual tablet), ondansetron (Zofran) One Time Meds: None Continuous Infusions: None
--- OUTSIDE RECORDS SUMMARY | 2018-08-13 18:24 | XMS REPORT | Summary of Care ---
Author Organization Unknown Address Unknown Phone Unavailable Encounter [facility] Rodriguez(KIRSTIE) [id number] Date(s): 05/02/14 - 05/07/14 [facility] [id number] Discharge Disposition: Home Physician Attending: Rowena Kay MD Physician Admitting: Rowena Kay MD Reason for Visit CELLULITIS Vital Signs 1 2 3 Most recent to oldest [Reference Range]: 152.4 cm (05/03/14 6:42 PM) 152.4 cm (05/02/14 11:20 PM) Height 97.8 DegF (05/07/14 12:35 PM) 98.2 DegF (05/07/14 8:05 AM) 98.8 DegF (05/07/14 12:00 AM) Temperature Oral [96.4-99.1 DegF] 101 mmHg (05/07/14 12:35 PM) 183 mmHg *HI* (05/07/14 8:05 AM) 123 mmHg (05/07/14 12:00 AM) Systolic Blood Pressure [90-140 mmHg] 61 mmHg (05/07/14 12:35 PM) 79 mmHg (05/07/14 8:05 AM) 61 mmHg (05/07/14 12:00 AM) Diastolic Blood Pressure [60-90 mmHg] 21 BRMIN *HI* (05/07/14 12:35 PM) 14 BRMIN (05/07/14 10:58 AM) 18 BRMIN (05/07/14 8:05 AM) Respiratory Rate [14-20 BRMIN] 84 bpm (05/07/14 12:35 PM) 70 bpm (05/07/14 8:05 AM) 76 bpm (05/07/14 12:00 AM) Peripheral Pulse Rate [60-100 bpm] 82.273 kg (05/03/14 6:42 PM) 82.273 kg (05/02/14 11:20 PM) Weight 35.42 m2 (05/03/14 6:42 PM) 35.42 m2 (05/02/14 11:20 PM) Body Mass Index Problem List Condition [...] cefuroxime Active cephalexin Active ciprofloxacin Active Iodine FPC Active penicillin Active sulfa drugs Active trimethoprim Active Medications acetaminophen 650 mg, 2 tab, Route: PO, Drug form: TAB, Q4H, Dosing Weight 82.273, kg, PRN Roger n 1-3/Temp > 100.4 F, Priority: STAT, Start date: 05/03/14 4:29:00, Duration: 30 day, Stop date: 06/02/14 4:28:00 Notes: Do not exceed 4 gm/day. (Same as: Tylenol) Start Date: 05/03/14 Stop Date: 05/07/14 Status: Discontinued albuterol 0.042% inhalation solution 1.25 mg, 3 mL, Route: NEB, Drug form: SOLN, RQ12H, Dosing Weight 82.273, kg, Sta rt date: 05/03/14 16:01:00, Duration: 30 day, Stop date: 06/02/14 20:00:00 Notes: SEE RT DOCUMENTATION (Same as: Proventil) Start Date: 05/03/14 Stop Date: 05/07/14 Status: Discontinued ALPRAZOLam 0.25 mg, 1 tab, Route: PO, Drug form: TAB, TID, Dosing Weight 82.273, kg, PRN as needed for anxiety, Start date: 05/03/14 16:01:00, Duration: 30 day, Stop date: 06/02/14 16:00:00 Notes: With food or milk(Same as: Xanax) Start Date: 05/03/14 Stop Date: 05/07/14 Status: Discontinued AMIODarone 100 mg, 0.5 tab, Route: PO, Drug form: TAB, Daily, Dosing Weight 82.273, kg, Sta rt date: 05/04/14 9:00:00, Duration: 30 day, Stop date: 06/02/14 9:00:00 Notes: (Same as: Cordarone) Start Date: 05/04/14 Stop Date: 05/07/14 Status: Discontinued Aricept 5 mg, 1 tab, Route: PO, Drug form: TAB, Bedtime, Dosing Weight 82.273, kg, Start date: 05/03/14 21:00:00, Duration: 30 day, Stop date: 06/01/14 21:00:00 Notes: (Same as: Aricept) Start Date: 05/03/14 Stop Date: 05/07/14 Status: Discontinued atorvastatin 40 mg, 1 tab, Route: PO, Drug form: TAB, Bedtime, Dosing Weight 82.273, kg, Star t date: 05/03/14 21:00:00, Duration: 30 day, Stop date: 06/01/14 21:00:00 Notes: (Same as: Lipitor) Start Date: 05/03/14 Stop Date: 05/07/14 Status: Discontinued Benadryl 25 mg, 1 tab, Route: PO, Drug form: TAB, Q4H, Dosing Weight 82.273, kg, PRN as n eeded for itching, Start date: 05/04/14 0:50:00, Duration: 30 day, Stop date: 0:49:00 Start Date: 05/04/14 Stop Date: 05/07/14 Status: Discontinued Benadryl 25 mg, 1 tab, Route: PO, Drug form: TAB, Q6H, Dosing Weight 82.273, kg, PRN as n eeded for itching, Start date: 05/04/14 0:52:00, Duration: 30 day, Stop date: 0:51:00 Start Date: 05/04/14 Stop Date: 05/07/14 Status: Discontinued benzonatate 200 mg, 2 cap, Route: PO, Drug form: CAP, TID, Dosing Weight 82.273, kg, Start d ate: 05/03/14 17:00:00, Duration: 30 day, Stop date: 06/02/14 13:00:00 Notes: (Same As: Cade Soto) Start Date: 05/03/14 Stop Date: 05/07/14 Status: Discontinued chlordiazePOXIDE-clidinium 5 mg-2.5 mg oral capsule 1 cap, Route: PO, Drug Form: CAP, Dosing Weight 82.273, kg, BID-Before Meals, St art date: 05/03/14 16:30:00, Duration: 30 day, Stop date: 06/02/14 7:30:00 Notes: (Same As: Librax) Start Date: 05/03/14 Stop Date: 05/07/14 Status: Discontinued clindamycin + Sodium Chloride 0.9% IV 100 mL 600 mg, 4 mL, Route: IVPB, ABXQ8H, Dosing Weight 82.273, kg, Priority: STAT, Sta rt date: 05/03/14 4:29:00, Duration: 30 day, Stop date: 06/01/14 18:00:00 Notes: (clindamycin 150 mg/1 ml (600 mg/4 ml VL) INJ) (Same As: Cleocin) Start Date: 05/03/14 Stop Date: 05/07/14 Status: Discontinued clindamycin + Sodium Chloride 0.9% IV 100 mL 600 mg, 4 mL, Route: IVPB, ONCE, Dosing Weight 82.273, kg, Priority: STAT, Start date: 05/03/14 1:04:00, Stop date: 05/03/14 1:04:00 Notes: (clindamycin 150 mg/1 ml (600 mg/4 ml VL) INJ) (Same As: Cleocin) Start Date: 05/03/14 Stop Date: 05/03/14 Status: Completed clindamycin 300 mg oral capsule 300 mg=1 cap, PO, Q6H, # 40 cap, 0 Refill(s) Start Date: 05/07/14 Stop Date: 05/17/14 Status: Ordered Dextrose 50% Syringe 25 gm, 50 mL, Route: IVP, Drug Form: INJ, Dosing Weight 82.273, kg, PRN, PRN Blo od Glucose Results, Start date: 05/03/14 4:31:00, Duration: 30 day, Stop date: 1 4:30:00 Start Date: 05/03/14 Stop Date: 05/07/14 Status: Discontinued Dextrose 50% Syringe 12.5 gm, 25 mL, Route: IVP, Drug Form: INJ, Dosing Weight 82.273, kg, PRN, PRN B lood Glucose Results, Start date: 05/03/14 4:31:00, Duration: 30 day, Stop date: 06/02/14 4:30:00 Start Date: 05/03/14 Stop Date: 05/07/14 Status: Discontinued Effexor XR 150 mg, 1 cap, Route: PO, Drug form: ERCAP, Bedtime, Dosing Weight 82.273, kg, S tart date: 05/03/14 21:00:00, Duration: 30 day, Stop date: 06/01/14 21:00:00 Notes: Do not open, crush, or chew. (Same As: Effexor XR) Start Date: 05/03/14 Stop Date: 05/07/14 Status: Discontinued glucagon 1 mg, Route: IM, Drug form: PDR/INJ, PRN, Dosing Weight 82.273, kg, PRN Blood Gl ucose Results, Start date: 05/03/14 4:31:00, Duration: 30 day, Stop date: 4:30:00 Start Date: 05/03/14 Stop Date: 05/07/14 Status: Discontinued insulin aspart 2 unit, 0.02 mL, Route: SUB-Q, Drug form: SOLN, TID-Before Meals, Dosing Weight 82.273, kg, PRN Blood Glucose Results, Start date: 05/03/14 4:31:00, Duration: 3 0 day, Stop date: 06/02/14 4:30:00 Notes: Roll in palms of hands gently; Do not shake vigorously. (Same as: NovoLO G)"single patient use only" Stable for 28 days at room temperature.Expires in _ ____ days from Date Start Date: 05/03/14 Stop Date: 05/07/14 Status: Discontinued insulin aspart 2 unit, 0.02 mL, Route: SUB-Q, Drug form: SOLN, Bedtime, Dosing Weight 82.273, k g, PRN Blood Glucose Results, Start date: 05/03/14 4:31:00, Duration: 30 day, St op date: 06/02/14 4:30:00 Notes: Roll in palms of hands gently; Do not shake vigorously. (Same as: NovoLO G)"single patient use only" Stable for 28 days at room temperature.Expires in _ ____ days from Date Start Date: 05/03/14 Stop Date: 05/07/14 Status: Discontinued insulin aspart 1 unit, 0.01 mL, Route: SUB-Q, Drug form: SOLN, Bedtime, Dosing Weight 82.273, k g, PRN Blood Glucose Results, Start date: 05/03/14 4:31:00, Duration: 30 day, St op date: 06/02/14 4:30:00 Notes: Roll in palms of hands gently; Do not shake vigorously. (Same as: NovoLO G)"single patient use only" Stable for 28 days at room temperature.Expires in _ ____ days from Date Start Date: 05/03/14 Stop Date: 05/07/14 Status: Discontinued insulin aspart 10 unit, 0.1 mL, Route: SUB-Q, Drug form: SOLN, TID-Before Meals, Dosing Weight 82.273, kg, PRN Blood Glucose Results, Start date: 05/03/14 4:31:00, Duration: 3 0 day, Stop date: 06/02/14 4:30:00 Notes: Roll in palms of hands gently; Do not shake vigorously. (Same as: NovoLO G)"single patient use only" Stable for 28 days at room temperature.Expires in _ ____ days from Date Start Date: 05/03/14 Stop Date: 05/07/14 Status: Discontinued insulin aspart 8 unit, 0.08 mL, Route: SUB-Q, Drug form: SOLN, TID-Before Meals, Dosing Weight 82.273, kg, PRN Blood Glucose Results, Start date: 05/03/14 4:31:00, Duration: 3 0 day, Stop date: 06/02/14 4:30:00 Notes: Roll in palms of hands gently; Do not shake vigorously. (Same as: NovoLO G)"single patient use only" Stable for 28 days at room temperature.Expires in _ ____ days from Date Start Date: 05/03/14 Stop Date: 05/07/14 Status: Discontinued insulin aspart 6 unit, 0.06 mL, Route: SUB-Q, Drug form: SOLN, TID-Before Meals, Dosing Weight 82.273, kg, PRN Blood Glucose Results, Start date: 05/03/14 4:31:00, Duration: 3 0 day, Stop date: 06/02/14 4:30:00 Notes: Roll in palms of hands gently; Do not shake vigorously. (Same as: NovoLO G)"single patient use only" Stable for 28 days at room temperature.Expires in _ ____ days from Date Start Date: 05/03/14 Stop Date: 05/07/14 Status: Discontinued insulin aspart 4 unit, 0.04 mL, Route: SUB-Q, Drug form: SOLN, TID-Before Meals, Dosing Weight 82.273, kg, PRN Blood Glucose Results, Start date: 05/03/14 4:31:00, Duration: 3 0 day, Stop date: 06/02/14 4:30:00 Notes: Roll in palms of hands gently; Do not shake vigorously. (Same as: NovoLO G)"single patient use only" Stable for 28 days at room temperature.Expires in _ ____ days from Date Start Date: 05/03/14 Stop Date: 05/07/14 Status: Discontinued insulin aspart 3 unit, 0.03 mL, Route: SUB-Q, Drug form: SOLN, Bedtime, Dosing Weight 82.273, k g, PRN Blood Glucose Results, Start date: 05/03/14 4:31:00, Duration: 30 day, St op date: 06/02/14 4:30:00 Notes: Roll in palms of hands gently; Do not shake vigorously. (Same as: NovoLO G)"single patient use only" Stable for 28 days at room temperature.Expires in _ ____ days from Date Start Date: 05/03/14 Stop Date: 05/07/14 Status: Discontinued insulin aspart 4 unit, 0.04 mL, Route: SUB-Q, Drug form: SOLN, Bedtime, Dosing Weight 82.273, k g, PRN Blood Glucose Results, Start date: 05/03/14 4:31:00, Duration: 30 day, St op date: 06/02/14 4:30:00 Notes: Roll in palms of hands gently; Do not shake vigorously. (Same as: NovoLO G)"single patient use only" Stable for 28 days at room temperature.Expires in _ ____ days from Date Start Date: 05/03/14 Stop Date: 05/07/14 Status: Discontinued isosorbide mononitrate 30 mg, 1 tab, Route: PO, Drug form: ERTAB, Bedtime, Dosing Weight 82.273, kg, St art date: 05/03/14 21:00:00, Duration: 30 day, Stop date: 06/01/14 21:00:00 Notes: (Same as:Imdur)"Do Not Crush" Take on empty stomach/ full glass of water . Do not crush Start Date: 05/03/14 Stop Date: 05/07/14 Status: Discontinued lactulose 10 g/15 mL oral syrup 20 gm, 30 mL, Route: PO, Drug Form: SYRP, Dosing Weight 82.273, kg, Q6H, PRN as needed for constipation, Start date: 05/03/14 16:03:00, Duration: 30 day, Stop d ate: 06/02/14 16:02:00 Notes: (Same as:Chronulac) Start Date: 05/03/14 Stop Date: 05/07/14 Status: Discontinued Levaquin 500 mg oral tablet 500 mg=1 tab, PO, Q24H, # 7 tab, 0 Refill(s) Start Date: 04/22/14 Stop Date: 05/07/14 Status: Discontinued levothyroxine 150 microgram, 1 tab, Route: PO, Drug form: TAB, Q630AM, Dosing Weight 82.273, k g, Start date: 05/04/14 6:30:00, Duration: 30 day, Stop date: 06/02/14 6:30:00 Notes: Take 1 hour before or 2 hours after meal; Enteral feeds may interefere wi th the absorption of this medication. (Same as: Levothroid) Start Date: 05/04/14 Stop Date: 05/07/14 Status: Discontinued lisinopril 20 mg, 1 tab, Route: PO, Drug form: TAB, Daily, Dosing Weight 82.273, kg, Start date: 05/04/14 9:00:00, Duration: 30 day, Stop date: 06/02/14 9:00:00 Notes: (Same as: Prinivil, Zestril) Start Date: 05/04/14 Stop Date: 05/07/14 Status: Discontinued Lopressor 25 mg, 1 tab, Route: PO, Drug form: TAB, Q12H, Dosing Weight 82.273, kg, Start d ate: 05/03/14 21:00:00, Duration: 30 day, Stop date: 06/02/14 9:00:00 Notes: (Same as: Lopressor) Start Date: 05/03/14 Stop Date: 05/07/14 Status: Discontinued Lovenox 30 mg, Route: SUB-Q, Drug form: INJ, Daily, Dosing Weight 82.273, kg, Start date : 05/04/14 9:00:00, Duration: 30 day, Stop date: 06/02/14 9:00:00 Start Date: 05/04/14 Stop Date: 05/03/14 Status: Deleted Lovenox 40 mg, 0.4 mL, Route: SUB-Q, Drug form: INJ, [id number], Dosing Weight 82.273, kg, Start date: 05/03/14 5:00:00, Duration: 30 day, Stop date: 06/01/14 5:00:00 Notes: (Same as: Lovenox) Start Date: 05/03/14 Stop Date: 05/07/14 Status: Discontinued Microzide 12.5 mg oral capsule 12.5 mg, 1 cap, Route: PO, Drug form: CAP, Daily, Dosing Weight 82.273, kg, Star t date: 05/04/14 9:00:00, Duration: 30 day, Stop date: 06/02/14 9:00:00 Notes: (Same as: Microzide) With food. Start Date: 05/04/14 Stop Date: 05/07/14 Status: Discontinued montelukast 10 mg, 1 tab, Route: PO, Drug form: TAB, Bedtime, Dosing Weight 82.273, kg, Star t date: 05/03/14 21:00:00, Duration: 30 day, Stop date: 06/01/14 21:00:00 Notes: (Same as:Singulair) Start Date: 05/03/14 Stop Date: 05/07/14 Status: Discontinued morphine Sulfate 1 mg, 0.5 mL, Route: IVP, Drug form: INJ, Q4H, Dosing Weight 82.273, kg, PRN Roger n Score 4-6, Priority: STAT, Start date: 05/03/14 4:29:00, Duration: 30 day, Sto p date: 06/02/14 4:28:00 Notes: (Same as:MORPhine Sulfate) Start Date: 05/03/14 Stop Date: 05/07/14 Status: Discontinued morphine Sulfate 2 mg, 1 mL, Route: IVP, Drug form: INJ, Q4H, Dosing Weight 82.273, kg, PRN Pain Score 7-10, Priority: STAT, Start date: 05/03/14 4:29:00, Duration: 30 day, Stop date: 06/02/14 4:28:00 Notes: (Same as:MORPhine Sulfate) Start Date: 05/03/14 Stop Date: 05/07/14 Status: Discontinued NexIUM 40 mg, Route: PO, Drug form: ECCAP, Daily, Dosing Weight 82.273, kg, Start date: 05/04/14 9:00:00, Duration: 30 day, Stop date: 06/02/14 9:00:00 Start Date: 05/04/14 Stop Date: 05/03/14 Status: Deleted nitroglycerin 0.4 mg sublingual tablet 0.4 mg, 1 tab, Route: SL, Drug form: TAB, Q5Min, Dosing Weight 82.273, kg, PRN a s needed for chest pain, Start date: 05/03/14 16:03:00, Duration: 30 day, Stop d ate: 06/02/14 16:02:00 Notes: (Same as:Nitroquick, Nitrostat)"Do Not Crush" Sublingual tablet Start Date: 05/03/14 Stop Date: 05/07/14 Status: Discontinued NovoLOG Mix 70/30 FlexPen 33 unit, 0.33 mL, Route: SUB-Q, Drug form: INJ, QAM & PM (Insulin), Dosing Weight 82.273, kg, Start date: 05/03/14 16:30:00, Duration: 30 day, Stop date: 06/02/14 7:30:00 Notes: Roll in palms of hands gently; Do not shake vigorously. (Same as: NovoLO G Mix)"single patient use only" Stable for 14 days at room temperatureExpires i n days from Date Start Date: 05/03/14 Stop Date: 05/07/14 Status: Discontinued potassium chloride 10 mEq, 7.5 mL, Route: PO, Drug form: LIQ, Daily, Dosing Weight 82.273, kg, Star t date: 05/04/14 9:00:00, Duration: 30 day, Stop date: 06/02/14 9:00:00 Notes: (Same as: Potassium Chloride) Start Date: 05/04/14 Stop Date: 05/07/14 Status: Discontinued pramipexole 0.125 mg, 1 tab, Route: PO, Drug form: TAB, TID, Dosing Weight 82.273, kg, Start date: 05/03/14 17:00:00, Duration: 30 day, Stop date: 06/02/14 13:00:00 Notes: (Same as: Mirapex) Start Date: 05/03/14 Stop Date: 05/07/14 Status: Discontinued Protonix 40 mg, 1 tab, Route: PO, Drug form: ECTAB, Before Breakfast, Start date: 4 7:30:00, Duration: 30 day, Stop date: 06/02/14 7:30:00 Notes: Tablet should not be chewed or crushed.(Same as: Protonix) Start Date: 05/04/14 Stop Date: 05/07/14 Status: Discontinued Saline Flush 0.9% 10 mL, Route: IVP, Drug Form: INJ, Dosing Weight 82.273, kg, PRN, PRN Line Flush , Start date: 05/03/14 1:04:00, Duration: 30 day, Stop date: 06/02/14 1:03:00 Notes: Same as: BD Posiflush Sterile Start Date: 05/03/14 Stop Date: 05/07/14 Status: Discontinued triamcinolone topical 0.025% cream 1 appl, TOP, TID, For rash, # 60 gm, 0 Refill(s) Start Date: 05/07/14 Status: Ordered vancomycin 1,250 mg, 250 mL, Route: IVPB, Drug form: INJ, [id number], Dosing Weight 82.273, kg , Priority: STAT, Start date: 05/03/14 4:29:00, Duration: 30 day, Stop date: 3:00:00 Notes: Same as: Vancocin-NS (premixed)Infusion rate< 1000 mg: infuse over 1 [id number] - 1500 mg: infuse over 1.5 [id number] - 2000 mg: infuse over 2 hours> 2001 mg: infuse over 2.5 hours Start Date: 05/03/14 Stop Date: 05/07/14 Status: Discontinued vancomycin 2,000 mg, 500 mL, Route: IVPB, Drug form: SOLN, ONCE, Dosing Weight 82.273, kg, Priority: STAT, Start date: 05/03/14 1:04:00, Stop date: 05/03/14 1:04:00 Notes: Same as: Vancocin Infusion rate< 1000 mg: infuse over 1 [id number] - 1500 mg: infuse over 1.5 [id number] - 2000 mg: infuse over 2 hours> 2001 mg: infuse over 2.5 hours Start Date: 05/03/14 Stop Date: 05/03/14 Status: Completed Vicodin 5 mg-300 mg oral tablet 1 tab, PO, Q6H, # 20 tab, 0 Refill(s) Start Date: 05/07/14 Status: Ordered Results ELECTROLYTES 1 2 3 Most recent to oldest [Reference Range]: 139 mEq/L (05/06/14 3:30 AM) 142 mEq/L (05/05/14 7:16 AM) 140 mEq/L (05/04/14 12:18 PM) Sodium Lvl [135-145 mEq/L] 4.0 mEq/L (05/06/14 3:30 AM) 4.3 mEq/L (05/05/14 7:16 AM) 4.4 mEq/L (05/04/14 12:18 PM) Potassium Lvl [3.5-5.1 mEq/L] 103 mEq/L (05/06/14 3:30 AM) 105 mEq/L (05/05/14 7:16 AM) 104 mEq/L (05/04/14 12:18 PM) Chloride Lvl [95-109 mEq/L] 34 mEq/L *HI* (05/06/14 3:30 AM) 31 mEq/L (05/05/14 7:16 AM) 31 mEq/L (05/04/14 12:18 PM) CO2 [24-32 mEq/L] 6.0 mEq/L *LOW* (05/06/14 3:30 AM) 10.3 mEq/L (05/05/14 7:16 AM) 9.4 mEq/L *LOW* (05/04/14 12:18 PM) AGAP [10.0-20.0 mEq/L] CHEM PANEL 1 2 3 Most recent to oldest [Reference Range]: 1.0 mg/dL (05/06/14 3:30 AM) 0.9 mg/dL (05/05/14 7:16 AM) 1.1 mg/dL (05/04/14 12:18 PM) Creatinine Lvl [0.5-1.4 mg/dL] 54 mL/min/1.73m2 1 *NA* (05/06/14 3:30 AM) 61 mL/min/1.73m2 2 *NA* (05/05/14 7:16 AM) 48 mL/min/1.73m2 3 *NA* (05/04/14 12:18 PM) eGFR 9 mg/dL (05/06/14 3:30 AM) 10 mg/dL (05/05/14 7:16 AM) 11 mg/dL (05/04/14 12:18 PM) BUN [7-22 mg/dL] 22 (05/03/14 1:30 AM) B/C Ratio [6-25] 117 mg/dL 4 *HI* (05/06/14 3:30 AM) 136 mg/dL 5 *HI* (05/05/14 7:16 AM) 143 mg/dL 6 *HI* (05/04/14 12:18 PM) Glucose Lvl [70-99 mg/dL] 6.5 g/dL (05/03/14 1:30 AM) Total Protein [6.4-8.4 g/dL] 3.6 g/dL (05/03/14 1:30 AM) Albumin Lvl [3.5-5.0 g/dL] 2.9 g/dL (05/03/14 1:30 AM) Globulin [2.0-4.0 g/dL] 1.2 (05/03/14 1:30 AM) A/G Ratio [0.7-1.6] 8.6 mg/dL (05/06/14 3:30 AM) 8.5 mg/dL (05/05/14 7:16 AM) 8.7 mg/dL (05/04/14 12:18 PM) Calcium Lvl [8.5-10.5 mg/dL] 30 unit/L (05/03/14 1:30 AM) ALT [0-65 unit/L] 30 unit/L (05/03/14 1:30 AM) AST [0-37 unit/L] 84 unit/L (05/03/14 1:30 AM) Alk Phos [39-136 unit/L] 0.5 mg/dL (05/03/14 1:30 AM) Bili Total [0.2-1.3 mg/dL] 1.0 mMol/L (05/03/14 1:30 AM) Lactic Acid Lvl [0.5-2.2 mMol/L] 1Result Comment: [...] the clinical guidelines of the [employer] [place] [employer]. 5Interpretive Data: Adult reference range values reflect the clinical guidelines of the [employer] [place] [employer]. 6Interpretive Data: Adult reference range values reflect the clinical guidelines of the [employer] [place] [employer]. TOXICOLOGY 1 2 3 Most recent to oldest [Reference Range]: 0230 *NA* (05/06/14 3:30 AM) Barneyo Tr TND 9.6 ug/ml 7 *NA* (05/06/14 3:30 AM) Barneyo Tr 7Interpretive Data: Therapeutic Range: Trough: 10 - 20 ug/mL Peak: 20 - 40 ug/mL Potential Toxicity: >80 ug/mL HEMATOLOGY 1 2 3 Most recent to oldest [Reference Range]: 3.5 K/CMM *LOW* (05/06/14 3:30 AM) 3.5 K/CMM *LOW* (05/05/14 7:16 AM) 3.3 K/CMM *LOW* (05/04/14 12:18 PM) WBC [3.7-10.4 K/CMM] 3.29 M/CMM *LOW* (05/06/14 3:30 AM) 3.23 M/CMM *LOW* (05/05/14 7:16 AM) 3.54 M/CMM *LOW* (05/04/14 12:18 PM) RBC [4.20-5.40 M/CMM] 9.0 g/dL *LOW* (05/06/14 3:30 AM) 9.1 g/dL *LOW* (05/05/14 7:16 AM) 10.0 g/dL *LOW* (05/04/14 12:18 PM) Hgb [12.0-16.0 g/dL] 27.7 % *LOW* (05/06/14 3:30 AM) 27.5 % *LOW* (05/05/14 7:16 AM) 30.2 % *LOW* (05/04/14 12:18 PM) Hct [36.0-48.0 %] 84.1 fL (05/06/14 3:30 AM) 85.3 fL (05/05/14 7:16 AM) 85.2 fL (05/04/14 12:18 PM) MCV [80.0-98.0 fL] 27.2 pg (05/06/14 3:30 AM) 28.0 pg (05/05/14 7:16 AM) 28.3 pg (05/04/14 12:18 PM) MCH [27.0-31.0 pg] 32.4 g/dL (05/06/14 3:30 AM) 32.9 g/dL (05/05/14 7:16 AM) 33.2 g/dL (05/04/14 12:18 PM) MCHC [32.0-36.0 g/dL] 15.1 % *HI* (05/06/14 3:30 AM) 14.9 % *HI* (05/05/14 7:16 AM) 15.4 % *HI* (05/04/14 12:18 PM) RDW [11.5-14.5 %] 161 K/CMM (05/06/14 3:30 AM) 146 K/CMM (05/05/14 7:16 AM) 132 K/CMM *LOW* (05/04/14 12:18 PM) Platelet [133-450 K/CMM] 6.9 fL *LOW* (05/06/14 3:30 AM) 7.3 fL *LOW* (05/05/14 7:16 AM) 7.5 fL (05/04/14 12:18 PM) MPV [7.4-10.4 fL] 68.6 % (05/03/14 1:30 AM) Segs [45.0-75.0 %] 24.3 % (05/03/14 1:30 AM) Lymphocytes [20.0-40.0 %] 6.0 % (05/03/14 1:30 AM) Monocytes [2.0-12.0 %] 0.8 % (05/03/14 1:30 AM) Eosinophils [0.0-4.0 %] 0.3 % (05/03/14 1:30 AM) Basophils [0.0-1.0 %] 5.2 K/CMM (05/03/14 1:30 AM) Segs-Bands # [1.5-8.1 K/CMM] 1.9 K/CMM (05/03/14 1:30 AM) Lymphocytes # [1.0-5.5 K/CMM] 0.5 K/CMM (05/03/14 1:30 AM) Monocytes # [0.0-0.8 K/CMM] 0.1 K/CMM (05/03/14 1:30 AM) Eosinophils # [0.0-0.5 K/CMM] Medications Administered During Your Visit No data available for this section Immunizations Vaccine Date Refusal Reason pneumococcal 13-valent vaccine1 03/11/14 1Admin Note: pt got it at [facility]=apr 2012 Social History Social History Type Response Smoking Status Never smoker, Exposure to Tobacco Smoke None, Cigarette Smoking Last 365 Days No, Reg Smoking Cessation Counseling No Assessment and Plan Extracted from: Title: Clinical Document Author: Rowena Kay MD Date: 05/07/14 Progress Note - Daily [facility] Completed: Apr, 13:59 by Rowena Kay MD RM: 314 - 1P, SE [id number], WILFREDOVINOD [id number] (: 1935) F Attending: Rowena Kay MDPhone: Service: Internal Medicine Reason for Admission: CELLULITIS Working DRG: Cellulitis w/o [facility] Code status: Full Code [Ordered]Current diet: Isolation: Contact [Ordered] Allergies: trimethoprim, cefuroxime, cephalexin, sulfa drugs, Iodine FPC, penicillin, ciprofloxacin SUBJECTIVE Doing better ,no chest pain or sob,no nausea or vomiting OBJECTIVE 24hr Labs 05/07 1230 Glucose [id number] H 05/07 0846 Glucose TSS220 H 05/06 2217 Glucose ABK731 H 05/06 1617 Glucose AHZ373 H Lang still necessary (Yes/No): Line still necessary (Yes/No): VitalsTmp(F)[id number] 05/07 12:3597.570087/6121------ 05/07 10:58 1496 21% 05/07 08:0598.721899/7918------ 05/07 00:0098.082900/6116------ 05/06 21:03 1896 21% 24 Hr Tmax: 98.8F (37.11c) at 05/07 00:00Vital Signs are the last 5 in the past 48 hours. DateWt(kg)Wt(lb)Ht(cm)Ht(in)Method 05/03 82.27 181.00Stated 05/02 (initial) 82.27 181.90914.40 60.00Stated I&ORecordInOutBal 04/1924hr Tot 104 0 104 04/1824hr Tot 1252 0 1252 Medications (41) Active Scheduled Meds (20): 05/04/14 AMIODarone 100 mg PO Daily 05/03/14 albuterol (albuterol 0.042% inhalation solution) 1.25 mg NEB RQ12H 05/03/14 atorvastatin 40 mg PO Bedtime 05/03/14 benzonatate 200 mg PO TID 05/03/14 chlordiazePOXIDE-clidinium (chlordiazePOXIDE-clidinium 5 mg-2.5 mg oral capsule) 1 cap PO BID-Before Meals 05/03/14 clindamycin + Sodium Chloride 0.9% IV 100 mL 600 mg IVPB ABXQ8H 200 ml/hr 05/03/14 donepezil (Aricept) 5 mg PO Bedtime 05/03/14 enoxaparin (Lovenox) 40 mg SUB-Q [id number] 05/04/14 hydrochlorothiazide (Microzide 12.5 mg oral capsule) 12.5 mg PO Daily 05/03/14 insulin aspart-insulin aspart protamine (NovoLOG Mix 70/30 FlexPen) 33 unit SUB-Q QAM & PM (Insulin) 05/03/14 isosorbide mononitrate 30 mg PO Bedtime 05/04/14 levothyroxine 150 microgram PO Q630AM 05/04/14 lisinopril 20 mg PO Daily 05/03/14 metoprolol (Lopressor) 25 mg PO Q12H 05/03/14 montelukast 10 mg PO Bedtime 05/04/14 pantoprazole (Protonix) 40 mg PO Before Breakfast 05/04/14 potassium chloride 10 mEq PO Daily 05/03/14 pramipexole 0.125 mg PO TID 05/03/14 vancomycin 1,250 mg IVPB [id number] 166.67 ml/hr 05/03/14 venlafaxine (Effexor XR) 150 mg PO Bedtime Unscheduled Meds: None PRN Meds (21): 05/03/14 ALPRAZolam (ALPRAZOLam) 0.25 mg PO TID 05/03/14 Dextrose 50% in Water IV (Dextrose 50% Syringe) 12.5 gm IVP PRN 05/03/14 Dextrose 50% in Water IV (Dextrose 50% Syringe) 25 gm IVP PRN 05/03/14 acetaminophen 650 mg PO Q4H 05/04/14 diphenhydrAMINE (Benadryl) 25 mg PO Q4H 05/04/14 diphenhydrAMINE (Benadryl) 25 mg PO Q6H 05/03/14 glucagon 1 mg IM PRN 05/03/14 insulin aspart 2 unit SUB-Q TID-Before Meals 05/03/14 insulin aspart 4 unit SUB-Q TID-Before Meals 05/03/14 insulin aspart 6 unit SUB-Q TID-Before Meals 05/03/14 insulin aspart 8 unit SUB-Q TID-Before Meals 05/03/14 insulin aspart 10 unit SUB-Q TID-Before Meals 05/03/14 insulin aspart 1 unit SUB-Q Bedtime 05/03/14 insulin aspart 2 unit SUB-Q Bedtime 05/03/14 insulin aspart 3 unit SUB-Q Bedtime 05/03/14 insulin aspart 4 unit SUB-Q Bedtime 05/03/14 lactulose (lactulose 10 g/15 mL oral syrup) 20 gm PO Q6H 05/03/14 morphine Sulfate 2 mg IVP Q4H 05/03/14 morphine Sulfate 1 mg IVP Q4H 05/03/14 nitroglycerin (nitroglycerin 0.4 mg sublingual tablet) 0.4 mg SL Q5Min 05/03/14 sodium chloride (Saline Flush 0.9%) 10 mL IVP PRN One Time Meds: None Continuous Infusions: None ASSESSMENT & EXAM GENERAL Alert and oriented x 3. no obvious distress. HEENT: PERRLA. EOMI. Normocephalic, Atraumatic. Moist membranes. NECK: No jugular venous distention, no bruit. Thyroid is normal. LUNGS: Clear to auscultation bilateral lungs. HEART: RRR. S1, S2 is normal. ABDOMEN: Positive bowel sounds, no organomegaly. No tenderness appreciated, obese. EXTREMITIES: No tenderness. NEUROLOGIC: Grossly intact sensory and motor. SKIN: improved erythema and no tenderness of bilateral lower extremities, no edema or cyanosis. PLAN & TREATMENT discussed in details with patient d/c home [id number] DIAGNOSES & PROBLEMS 1. Diabetes mellitus. 2. Coronary artery disease. 3. Osteoporosis. 4. Hyperlipidemia. 5. Depression. 6. Seasonal allergies. 7. Hypertension. 8. Obstructive sleep apnea. 9. Asthma. 10. Gastroesophageal reflux. 11. Atrial fibrillation. 12. Urinary incontinence. 13. Fibromyalgia. 14. Psoriasis. 15. Cellulitis bilateral extremities. 16. dermatitis, bilateral hands Ready for Discharge (Yes/No)? 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
--- OUTSIDE RECORDS SUMMARY | 2018-08-13 18:24 | XMS REPORT | Summary of Care ---
Author Organization Unknown Address Unknown Phone Unavailable Encounter [facility] Rodriguez(KIRSTIE) [id number] Date(s): 04/01/14 - 04/06/14 [facility] [id number] [place], [place] [id number] [place] [address] Discharge Disposition: Home Physician Attending: Ricardo Bocanegra DO Physician Admitting: Ricardo Bocanegra DO Reason for Visit CELLULITIS TO LEGS Vital Signs 1 2 3 Most recent to oldest [Reference Range]: 152.4 cm (04/02/14 12:19 AM) 152.4 cm (04/01/14 1:12 PM) Height 98.0 DegF (04/06/14 8:06 AM) 97.3 DegF (04/06/14 4:00 AM) 97.3 DegF (04/06/14 12:20 AM) Temperature Oral [96.4-99.1 DegF] 131 mmHg (04/06/14 8:06 AM) 126 mmHg (04/06/14 4:00 AM) 122 mmHg (04/06/14 12:20 AM) Systolic Blood Pressure [90-140 mmHg] 66 mmHg (04/06/14 8:06 AM) 77 mmHg (04/06/14 4:00 AM) 78 mmHg (04/06/14 12:20 AM) Diastolic Blood Pressure [60-90 mmHg] 16 BRMIN (04/06/14 8:06 AM) 20 BRMIN (04/06/14 8:04 AM) 18 BRMIN (04/06/14 4:00 AM) Respiratory Rate [14-20 BRMIN] 89 bpm (04/06/14 8:06 AM) 80 bpm (04/06/14 4:00 AM) 80 bpm (04/06/14 12:20 AM) Peripheral Pulse Rate [60-100 bpm] 83.636 kg (04/02/14 12:19 AM) 83.636 kg (04/01/14 1:12 PM) Weight 36.01 m2 (04/02/14 12:19 AM) 36.01 m2 (04/01/14 1:12 PM) Body Mass Index Problem List Condition [...] cefuroxime Active cephalexin Active ciprofloxacin Active Iodine ASSISTED Active penicillin Active sulfa drugs Active trimethoprim Active Medications albuterol 0.083% inhalation solution 2.49 mg=3 mL, NEB, RQ12H, # 120 ea, 0 Refill(s) Start Date: 04/01/14 Status: Ordered ALPRAZOLam 0.25 mg, 1 tab, Route: PO, Drug form: TAB, TID, Dosing Weight 83.636, kg, PRN as needed for anxiety, Start date: 04/02/14 9:07:00, Duration: 30 day, Stop date: 05/02/14 9:06:00 Notes: With food or milk(Same as: Xanax) Start Date: 04/02/14 Stop Date: 04/06/14 Status: Discontinued AMIODarone 100 mg, 0.5 tab, Route: PO, Drug form: TAB, Daily, Dosing Weight 83.636, kg, Sta rt date: 04/03/14 9:00:00, Duration: 30 day, Stop date: 05/02/14 9:00:00 Notes: (Same as: Cordarone) Start Date: 04/03/14 Stop Date: 04/06/14 Status: Discontinued Aricept 5 mg, 1 tab, Route: PO, Drug form: TAB, Bedtime, Dosing Weight 83.636, kg, Start date: 04/02/14 21:00:00, Duration: 30 day, Stop date: 05/01/14 21:00:00 Notes: (Same as: Aricept) Start Date: 04/02/14 Stop Date: 04/06/14 Status: Discontinued atorvastatin 40 mg, 1 tab, Route: PO, Drug form: TAB, Bedtime, Dosing Weight 83.636, kg, Star t date: 04/02/14 21:00:00, Duration: 30 day, Stop date: 05/01/14 21:00:00 Notes: (Same as: Lipitor) Start Date: 04/02/14 Stop Date: 04/06/14 Status: Discontinued Benadryl 25 mg, 1 tab, Route: PO, Drug form: TAB, TID, Dosing Weight 83.636, kg, PRN as n eeded for itching, Start date: 04/02/14 9:08:00, Duration: 30 day, Stop date: 9:07:00 Start Date: 04/02/14 Stop Date: 04/06/14 Status: Discontinued Benadryl 25 mg oral capsule 25 mg=1 cap, PO, TID, as needed for itching, # 30 cap, 0 Refill(s) Start Date: 04/01/14 Status: Ordered benzonatate 200 mg, 2 cap, Route: PO, Drug form: CAP, TID, Dosing Weight 83.636, kg, Start d ate: 04/02/14 13:00:00, Duration: 30 day, Stop date: 05/02/14 9:00:00 Notes: (Same As: Cade Soto)"Do Not Crush" Start Date: 04/02/14 Stop Date: 04/06/14 Status: Discontinued cyclobenzaprine 5 mg, 0.5 tab, Route: PO, Drug form: TAB, TID, Dosing Weight 83.636, kg, PRN as needed for muscle spasm, Start date: 04/02/14 9:08:00, Duration: 30 day, Stop da te: 05/02/14 9:07:00 Notes: (Same As: Flexeril) Start Date: 04/02/14 Stop Date: 04/06/14 Status: Discontinued DAPTOmycin + Sodium Chloride 0.9% IV 50 mL 330 mg, Route: IVPB, Drug form: INJ, Q24H, Dosing Weight 83.636, kg, Start date: 04/02/14 19:30:00, Duration: 30 day, Stop date: 05/01/14 19:30:00 Notes: To be mixed with NS and run over 30min. (Same As: Hienin) Restricted u se to Infectious Disease Physicians. Start Date: 04/02/14 Stop Date: 04/06/14 Status: Discontinued Dextrose 50% Syringe 25 gm, 50 mL, Route: IVP, Drug Form: INJ, Dosing Weight 83.636, kg, PRN, PRN Blo od Glucose Results, Start date: 04/01/14 23:57:00, Duration: 30 day, Stop date: 05/01/14 23:56:00 Start Date: 04/01/14 Stop Date: 04/02/14 Status: Discontinued Dextrose 50% Syringe 12.5 gm, 25 mL, Route: IVP, Drug Form: INJ, Dosing Weight 83.636, kg, PRN, PRN B lood Glucose Results, Start date: 04/01/14 23:57:00, Duration: 30 day, Stop date : 05/01/14 23:56:00 Start Date: 04/01/14 Stop Date: 04/02/14 Status: Discontinued Dextrose 50% Syringe 12.5 gm, 25 mL, Route: IVP, Drug Form: INJ, Dosing Weight 83.636, kg, PRN, PRN B lood Glucose Results, Start date: 04/02/14 9:16:00, Duration: 30 day, Stop date: 05/02/14 9:15:00 Start Date: 04/02/14 Stop Date: 04/06/14 Status: Discontinued Dextrose 50% Syringe 25 gm, 50 mL, Route: IVP, Drug Form: INJ, Dosing Weight 83.636, kg, PRN, PRN Blo od Glucose Results, Start date: 04/02/14 9:16:00, Duration: 30 day, Stop date: 0 05/02/14 9:15:00 Start Date: 04/02/14 Stop Date: 04/06/14 Status: Discontinued DuoNeb inhalation solution 3 ml, Route: INHALATION, Drug Form: SOLN, Dosing Weight 83.636, kg, Q6H, PRN See Respiratory Notes, Start date: 04/03/14 22:27:00, Duration: 30 day, Stop date: 05/03/14 22:26:00, wheezing,SOB Notes: (Same as: Duoneb) Start Date: 04/03/14 Stop Date: 04/06/14 Status: Discontinued Effexor XR 150 mg, 1 cap, Route: PO, Drug form: ERCAP, Bedtime, Dosing Weight 83.636, kg, S tart date: 04/02/14 21:00:00, Duration: 30 day, Stop date: 05/01/14 21:00:00 Notes: Do not open, crush, or chew. (Same As: Effexor XR) Start Date: 04/02/14 Stop Date: 04/06/14 Status: Discontinued enoxaparin 30 mg, 0.3 mL, Route: SUB-Q, Drug form: INJ, hratT12F, Dosing Weight 83.636, kg, Start date: 04/02/14 10:00:00, Duration: 30 day, Stop date: 05/01/14 10:00:00 Notes: (Same as: Lovenox) Start Date: 04/02/14 Stop Date: 04/06/14 Status: Discontinued fluticasone nasal 0.05 mg/inh spray 2 inhalation, Route: NASAL, Drug Form: SPRY, Dosing Weight 83.636, kg, BID, PRN Allergies, Start date: 04/02/14 9:09:00, Duration: 30 day, Stop date: 05/02/14 9 :08:00 Notes: (Same as: Flonase) Start Date: 04/02/14 Stop Date: 04/06/14 Status: Discontinued glucagon 1 mg, Route: IM, Drug form: PDR/INJ, PRN, Dosing Weight 83.636, kg, PRN Blood Gl ucose Results, Start date: 04/01/14 23:57:00, Duration: 30 day, Stop date: 05/01 23:56:00 Start Date: 04/01/14 Stop Date: 04/02/14 Status: Discontinued glucagon 1 mg, Route: IM, Drug form: PDR/INJ, PRN, Dosing Weight 83.636, kg, PRN Blood Gl ucose Results, Start date: 04/02/14 9:16:00, Duration: 30 day, Stop date: 9:15:00 Start Date: 04/02/14 Stop Date: 04/06/14 Status: Discontinued insulin aspart 4 unit, 0.04 mL, Route: SUB-Q, Drug form: SOLN, TID-Before Meals, Dosing Weight 83.636, kg, PRN Blood Glucose Results, Start date: 04/02/14 9:16:00, Duration: 3 0 day, Stop date: 05/02/14 9:15:00 Notes: Roll in palms of hands gently; Do not shake vigorously. (Same as: NovoLO G)"single patient use only" Stable for 28 days at room temperature.Expires in _ ____ days from Date Start Date: 04/02/14 Stop Date: 04/06/14 Status: Discontinued insulin aspart 2 unit, 0.02 mL, Route: SUB-Q, Drug form: SOLN, TID-Before Meals, Dosing Weight 83.636, kg, PRN Blood Glucose Results, Start date: 04/02/14 9:16:00, Duration: 3 0 day, Stop date: 05/02/14 9:15:00 Notes: Roll in palms of hands gently; Do not shake vigorously. (Same as: NovoLO G)"single patient use only" Stable for 28 days at room temperature.Expires in _ ____ days from Date Start Date: 04/02/14 Stop Date: 04/06/14 Status: Discontinued insulin aspart 6 unit, 0.06 mL, Route: SUB-Q, Drug form: SOLN, TID-Before Meals, Dosing Weight 83.636, kg, PRN Blood Glucose Results, Start date: 04/02/14 9:16:00, Duration: 3 0 day, Stop date: 05/02/14 9:15:00 Notes: Roll in palms of hands gently; Do not shake vigorously. (Same as: NovoLO G)"single patient use only" Stable for 28 days at room temperature.Expires in _ ____ days from Date Start Date: 04/02/14 Stop Date: 04/06/14 Status: Discontinued insulin aspart 8 unit, 0.08 mL, Route: SUB-Q, Drug form: SOLN, TID-Before Meals, Dosing Weight 83.636, kg, PRN Blood Glucose Results, Start date: 04/02/14 9:16:00, Duration: 3 0 day, Stop date: 05/02/14 9:15:00 Notes: Roll in palms of hands gently; Do not shake vigorously. (Same as: NovoLO G)"single patient use only" Stable for 28 days at room temperature.Expires in _ ____ days from Date Start Date: 04/02/14 Stop Date: 04/06/14 Status: Discontinued insulin aspart 10 unit, 0.1 mL, Route: SUB-Q, Drug form: SOLN, TID-Before Meals, Dosing Weight 83.636, kg, PRN Blood Glucose Results, Start date: 04/02/14 9:16:00, Duration: 3 0 day, Stop date: 05/02/14 9:15:00 Notes: Roll in palms of hands gently; Do not shake vigorously. (Same as: NovoLO G)"single patient use only" Stable for 28 days at room temperature.Expires in _ ____ days from Date Start Date: 04/02/14 Stop Date: 04/06/14 Status: Discontinued insulin aspart 4 unit, 0.04 mL, Route: SUB-Q, Drug form: SOLN, Bedtime, Dosing Weight 83.636, k g, PRN Blood Glucose Results, Start date: 04/02/14 9:16:00, Duration: 30 day, St op date: 05/02/14 9:15:00 Notes: Roll in palms of hands gently; Do not shake vigorously. (Same as: NovoLO G)"single patient use only" Stable for 28 days at room temperature.Expires in _ ____ days from Date Start Date: 04/02/14 Stop Date: 04/06/14 Status: Discontinued insulin aspart 1 unit, 0.01 mL, Route: SUB-Q, Drug form: SOLN, Bedtime, Dosing Weight 83.636, k g, PRN Blood Glucose Results, Start date: 04/02/14 9:16:00, Duration: 30 day, St op date: 05/02/14 9:15:00 Notes: Roll in palms of hands gently; Do not shake vigorously. (Same as: NovoLO G)"single patient use only" Stable for 28 days at room temperature.Expires in _ ____ days from Date Start Date: 04/02/14 Stop Date: 04/06/14 Status: Discontinued insulin aspart 2 unit, 0.02 mL, Route: SUB-Q, Drug form: SOLN, Bedtime, Dosing Weight 83.636, k g, PRN Blood Glucose Results, Start date: 04/02/14 9:16:00, Duration: 30 day, St op date: 05/02/14 9:15:00 Notes: Roll in palms of hands gently; Do not shake vigorously. (Same as: NovoLO G)"single patient use only" Stable for 28 days at room temperature.Expires in _ ____ days from Date Start Date: 04/02/14 Stop Date: 04/06/14 Status: Discontinued insulin aspart 3 unit, 0.03 mL, Route: SUB-Q, Drug form: SOLN, Bedtime, Dosing Weight 83.636, k g, PRN Blood Glucose Results, Start date: 04/02/14 9:16:00, Duration: 30 day, St op date: 05/02/14 9:15:00 Notes: Roll in palms of hands gently; Do not shake vigorously. (Same as: NovoLO G)"single patient use only" Stable for 28 days at room temperature.Expires in _ ____ days from Date Start Date: 04/02/14 Stop Date: 04/06/14 Status: Discontinued isosorbide mononitrate 30 mg, 1 tab, Route: PO, Drug form: ERTAB, Bedtime, Dosing Weight 83.636, kg, St art date: 04/02/14 21:00:00, Duration: 30 day, Stop date: 05/01/14 21:00:00 Notes: (Same as:Imdur)"Do Not Crush" Take on empty stomach/ full glass of water . Start Date: 04/02/14 Stop Date: 04/06/14 Status: Discontinued lactulose 10 g/15 mL oral syrup 20 gm, 30 mL, Route: PO, Drug Form: SYRP, Dosing Weight 83.636, kg, Q6H, PRN as needed for constipation, Start date: 04/02/14 9:09:00, Duration: 30 day, Stop da te: 05/02/14 9:08:00 Notes: (Same as:Chronulac) Start Date: 04/02/14 Stop Date: 04/06/14 Status: Discontinued lactulose 10 g/15 mL oral syrup 20 gm=30 ml, PO, Q6H, constipation, # 240 ml, 0 Refill(s) Start Date: 04/01/14 Status: Ordered levothyroxine 150 microgram, 1 tab, Route: PO, Drug form: TAB, Q630AM, Dosing Weight 83.636, k g, Start date: 04/03/14 6:30:00, Duration: 30 day, Stop date: 05/02/14 6:30:00 Notes: Take 1 hour before or 2 hours after meal; Enteral feeds may interefere wi th the absorption of this medication. (Same as: Levothroid) Start Date: 04/03/14 Stop Date: 04/06/14 Status: Discontinued lisinopril 20 mg, 1 tab, Route: PO, Drug form: TAB, Daily, Dosing Weight 83.636, kg, Start date: 04/03/14 9:00:00, Duration: 30 day, Stop date: 05/02/14 9:00:00 Notes: (Same as: Prinivil, Zestril) Start Date: 04/03/14 Stop Date: 04/06/14 Status: Discontinued lisinopril 20 mg oral tablet 20 mg=1 tab, PO, Daily, # 30 tab, 0 Refill(s) Start Date: 04/01/14 Status: Ordered Lovenox 30 mg, Route: SUB-Q, Drug form: INJ, Daily, Dosing Weight 83.636, kg, Start date : 04/03/14 9:00:00, Duration: 30 day, Stop date: 05/02/14 9:00:00 Start Date: 04/03/14 Stop Date: 04/02/14 Status: Canceled Lovenox 30 mg/0.3 mL subcutaneous solution 30 mg, SUB-Q, Daily, # 20 syr, 0 Refill(s) Start Date: 04/01/14 Stop Date: 04/11/14 Status: Ordered Microzide 12.5 mg oral capsule 12.5 mg=1 cap, PO, Daily, # 30 cap, 0 Refill(s) Start Date: 04/01/14 Status: Ordered NexIUM 40 mg, Route: PO, Drug form: ECCAP, Daily, Dosing Weight 83.636, kg, Start date: 04/03/14 9:00:00, Duration: 30 day, Stop date: 05/02/14 9:00:00 Start Date: 04/03/14 Stop Date: 04/02/14 Status: Deleted nitroglycerin 0.4 mg sublingual tablet 0.4 mg, 1 tab, Route: SL, Drug form: TAB, Q5Min, Dosing Weight 83.636, kg, PRN a s needed for chest pain, Start date: 04/02/14 9:10:00, Duration: 30 day, Stop da te: 05/02/14 9:09:00 Notes: (Same as:Nitroquick, Nitrostat)"Do Not Crush" Sublingual tablet Start Date: 04/02/14 Stop Date: 04/06/14 Status: Discontinued NovoLOG Mix 70/30 FlexPen 15 unit, SUB-Q, QAM & PM (Insulin), 0 Refill(s) Start Date: 04/01/14 Status: Ordered NS 1,000 mL 1,000 mL, Rate: 100 ml/hr, Infuse over: 10 hr, Route: IV, Dosing Weight 83.636 k g, Total Volume: 1,000, Start date: 04/02/14 9:21:00, Duration: 30 day, Stop joseluis e: 05/02/14 9:20:00 Start Date: 04/02/14 Stop Date: 04/03/14 Status: Discontinued Phenergan + Sodium Chloride 0.9% IV 50 mL 12.5 mg, 0.5 mL, Route: IVPB, Q4H, Dosing Weight 83.636, kg, PRN Nausea & Vomiting, Start date: 04/02/14 9:21:00, Duration: 30 day, Stop date: 05/02/14 9 :20:00 Notes: Do not give IV push. (Same as: Phenergan) Start Date: 04/02/14 Stop Date: 04/06/14 Status: Discontinued pramipexole 0.125 mg, 1 tab, Route: PO, Drug form: TAB, TID, Dosing Weight 83.636, kg, Start date: 04/02/14 13:00:00, Duration: 30 day, Stop date: 05/02/14 9:00:00 Notes: (Same as: Mirapex) Start Date: 04/02/14 Stop Date: 04/06/14 Status: Discontinued predniSONE 5 mg, 1 tab, Route: PO, Drug form: TAB, Daily, Dosing Weight 83.636, kg, Start d ate: 04/06/14 9:00:00, Duration: 30 day, Stop date: 05/05/14 9:00:00 Notes: Take with food. Start Date: 04/06/14 Stop Date: 04/06/14 Status: Discontinued predniSONE 5 mg oral tablet 5 mg=1 tab, PO, Daily, # 20 tab, 0 Refill(s) Start Date: 04/06/14 Status: Ordered Protonix 40 mg, 1 tab, Route: PO, Drug form: ECTAB, Before Breakfast, Start date: 4 7:30:00, Duration: 30 day, Stop date: 05/02/14 7:30:00 Notes: Tablet should not be chewed or crushed.(Same as: Protonix) Start Date: 04/03/14 Stop Date: 04/06/14 Status: Discontinued Robitussin-AC oral syrup 5 ml, Route: PO, Drug Form: LIQ, Dosing Weight 83.636, kg, Q4H, PRN Cough, Start date: 04/03/14 17:03:00, Duration: 30 day, Stop date: 05/03/14 17:02:00 Notes: (Same As: Robitussin AC) Start Date: 04/03/14 Stop Date: 04/06/14 Status: Discontinued Tessalon 200 mg oral capsule 200 mg=1 cap, PO, TID, # 30 cap, 0 Refill(s) Start Date: 04/01/14 Stop Date: 04/11/14 Status: Ordered Toprol-XL 25 mg oral tablet, extended release 25 mg, 1 tab, Route: PO, Drug form: ERTAB, Daily, Start date: 04/03/14 9:00:00, Duration: 30 day, Stop date: 05/02/14 9:00:00 Notes: (Same as: Toprol XL) Do Not Crush Start Date: 04/03/14 Stop Date: 04/06/14 Status: Discontinued vancomycin 1 gm, 200 mL, Route: IVPB, Drug form: INJ, ONCE, Dosing Weight 83.636, kg, Prior ity: STAT, Start date: 04/01/14 21:20:00, Stop date: 04/01/14 21:20:00 Start Date: 04/01/14 Stop Date: 04/01/14 Status: Completed Results ELECTROLYTES 1 2 3 Most recent to oldest [Reference Range]: 138 mEq/L (04/06/14 3:00 AM) 135 mEq/L (04/05/14 6:13 AM) 141 mEq/L (04/03/14 5:00 AM) Sodium Lvl [135-145 mEq/L] 3.5 mEq/L (04/06/14 3:00 AM) 3.7 mEq/L (04/05/14 6:13 AM) 4.0 mEq/L (04/03/14 5:00 AM) Potassium Lvl [3.5-5.1 mEq/L] 99 mEq/L (04/06/14 3:00 AM) 98 mEq/L (04/05/14 6:13 AM) 106 mEq/L (04/03/14 5:00 AM) Chloride Lvl [95-109 mEq/L] 28 mEq/L (04/06/14 3:00 AM) 31 mEq/L (04/05/14 6:13 AM) 31 mEq/L (04/03/14 5:00 AM) CO2 [24-32 mEq/L] 14.5 mEq/L (04/06/14 3:00 AM) 9.7 mEq/L *LOW* (04/05/14 6:13 AM) 8.0 mEq/L *LOW* (04/03/14 5:00 AM) AGAP [10.0-20.0 mEq/L] CHEM PANEL 1 2 3 Most recent to oldest [Reference Range]: 1.1 mg/dL (04/06/14 3:00 AM) 1.0 mg/dL (04/05/14 6:13 AM) 1.1 mg/dL (04/03/14 5:00 AM) Creatinine Lvl [0.5-1.4 mg/dL] 48 mL/min/1.73m2 1 *NA* (04/06/14 3:00 AM) 54 mL/min/1.73m2 2 *NA* (04/05/14 6:13 AM) 48 mL/min/1.73m2 3 *NA* (04/03/14 5:00 AM) eGFR 10 mg/dL (04/06/14 3:00 AM) 7 mg/dL (04/05/14 6:13 AM) 10 mg/dL (04/03/14 5:00 AM) BUN [7-22 mg/dL] 12 (04/01/14 6:22 PM) B/C Ratio [6-25] 196 mg/dL 4 *HI* (04/06/14 3:00 AM) 206 mg/dL 5 *HI* (04/05/14 6:13 AM) 189 mg/dL 6 *HI* (04/03/14 5:00 AM) Glucose Lvl [70-99 mg/dL] 6.4 g/dL (04/01/14 6:22 PM) Total Protein [6.4-8.4 g/dL] 3.2 g/dL *LOW* (04/01/14 6:22 PM) Albumin Lvl [3.5-5.0 g/dL] 3.2 g/dL (04/01/14 6:22 PM) Globulin [2.0-4.0 g/dL] 1.0 (04/01/14 6:22 PM) A/G Ratio [0.7-1.6] 9.4 mg/dL (04/06/14 3:00 AM) 9.3 mg/dL (04/05/14 6:13 AM) 8.4 mg/dL *LOW* (04/03/14 5:00 AM) Calcium Lvl [8.5-10.5 mg/dL] 20 unit/L (04/01/14 6:22 PM) ALT [0-65 unit/L] 20 unit/L (04/01/14 6:22 PM) AST [0-37 unit/L] 86 unit/L (04/01/14 6:22 PM) Alk Phos [39-136 unit/L] 0.4 mg/dL (04/01/14 6:22 PM) Bili Total [0.2-1.3 mg/dL] 0.9 mMol/L (04/01/14 6:22 PM) Lactic Acid Lvl [0.5-2.2 mMol/L] 1Result [...] values reflect the clinical guidelines of the [place] [employer]. 5Interpretive Data: Adult reference range values reflect the clinical guidelines of the [place] [employer]. 6Interpretive Data: Adult reference range values reflect the clinical guidelines of the [place] [employer]. CARDIAC ENZYMES 1 2 3 Most recent to oldest [Reference Range]: 85 unit/L (04/01/14 6:22 PM) Total CK [12-191 unit/L] <0.5 ng/mL (04/01/14 6:22 PM) CK MB [0.5-3.6 ng/mL] <0.6 (04/01/14 6:22 PM) CK MB Index [0.0-2.5] <0.02 ng/mL (04/01/14 6:22 PM) Troponin-I [0.00-0.40 ng/mL] URINE AND STOOL 1 2 3 Most recent to oldest [Reference Range]: Slight *ABN* (04/01/14 4:55 PM) UA Turbidity [Clear] Fouzia *NA* (04/01/14 4:55 PM) UA Color 5.0 (04/01/14 4:55 PM) UA pH [5.0-8.0] 1.019 (04/01/14 4:55 PM) UA Spec Grav [<=1.030] 50 mg/dL *ABN* (04/01/14 4:55 PM) UA Glucose [Negative mg/dL] Negative (04/01/14 4:55 PM) UA Blood [Negative] Negative mg/dL *NA* (04/01/14 4:55 PM) UA Ketones [Negative mg/dL] Negative mg/dL (04/01/14 4:55 PM) UA Protein [Negative mg/dL] <=1.0 mg/dL *NA* (04/01/14 4:55 PM) UA Urobilinogen [0.1-1.0 mg/dL] Negative *NA* (04/01/14 4:55 PM) UA Bili [Negative] Small *ABN* (04/01/14 4:55 PM) UA Leuk Est [Negative] Negative (04/01/14 4:55 PM) UA Nitrite [Negative] 23 /HPF *HI* (04/01/14 4:55 PM) UA WBC [0-5 /HPF] 2 /HPF (04/01/14 4:55 PM) UA RBC [0-2 /HPF] Occasional /HPF *NA* (04/01/14 4:55 PM) UA Bacteria [None Seen /HPF] Occasional /LPF *NA* (04/01/14 4:55 PM) UA Sq Epi [Few /LPF] 58 /LPF *HI* (04/01/14 4:55 PM) UA Hyal Cast [0-2 /LPF] Few /LPF *NA* (04/01/14 4:55 PM) UA Mucus [None Seen /LPF] Few /HPF *ABN* (04/01/14 4:55 PM) UA [place] Yeast [None Seen /HPF] IMMUNOLOGY 1 2 3 Most recent to oldest [Reference Range]: Negative (04/02/14 11:22 AM) VLADISLAV [Negative] HEMATOLOGY 1 2 3 Most recent to oldest [Reference Range]: 4.2 K/CMM (04/06/14 3:00 AM) 4.7 K/CMM (04/05/14 6:13 AM) 4.0 K/CMM (04/03/14 5:00 AM) WBC [3.7-10.4 K/CMM] 3.99 M/CMM *LOW* (04/06/14 3:00 AM) 3.85 M/CMM *LOW* (04/05/14 6:13 AM) 3.11 M/CMM *LOW* (04/03/14 5:00 AM) RBC [4.20-5.40 M/CMM] 11.0 g/dL *LOW* (04/06/14 3:00 AM) 10.6 g/dL *LOW* (04/05/14 6:13 AM) 8.7 g/dL *LOW* (04/03/14 5:00 AM) Hgb [12.0-16.0 g/dL] 33.6 % *LOW* (04/06/14 3:00 AM) 32.8 % *LOW* (04/05/14:13 AM) 26.9 % *LOW* (04/03/14 5:00 AM) Hct [36.0-48.0 %] 84.2 fL (04/06/14 3:00 AM) 85.3 fL (04/05/14:13 AM) 86.7 fL (04/03/14 5:00 AM) MCV [81.0-99.0 fL] 27.7 pg (04/06/14 3:00 AM) 27.6 pg (04/05/14 6:13 AM) 28.1 pg (04/03/14 5:00 AM) MCH [27.0-31.0 pg] 32.8 g/dL (04/06/14 3:00 AM) 32.4 g/dL (04/05/14:13 AM) 32.4 g/dL (04/03/14 5:00 AM) MCHC [32.0-36.0 g/dL] 13.8 % (04/06/14 3:00 AM) 13.7 % (04/05/14:13 AM) 13.7 % (04/03/14 5:00 AM) RDW [11.5-14.5 %] 237 K/CMM (04/06/14 3:00 AM) 232 K/CMM (04/05/14 6:13 AM) 182 K/CMM (04/03/14 5:00 AM) Platelet [133-450 K/CMM] 6.7 fL *LOW* (04/06/14 3:00 AM) 7.0 fL *LOW* (04/05/14 6:13 AM) 6.7 fL *LOW* (04/03/14 5:00 AM) MPV [7.4-10.4 fL] 56.0 % (04/06/14 3:00 AM) 62.2 % (04/05/14 6:13 AM) 62.3 % (04/03/14 5:00 AM) Segs [45.0-75.0 %] 31.4 % (04/06/14 3:00 AM) 26.7 % (04/05/14 6:13 AM) 26.8 % (04/03/14 5:00 AM) Lymphocytes [20.0-40.0 %] 9.6 % (04/06/14 3:00 AM) 8.7 % (04/05/14 6:13 AM) 8.1 % (04/03/14 5:00 AM) Monocytes [2.0-12.0 %] 2.0 % (04/06/14 3:00 AM) 1.2 % (04/05/14 6:13 AM) 2.4 % (04/03/14 5:00 AM) Eosinophils [0.0-4.0 %] 1.0 % (04/06/14 3:00 AM) 1.2 % *HI* (04/05/14 6:13 AM) 0.4 % (04/03/14 5:00 AM) Basophils [0.0-1.0 %] 2.4 K/CMM (04/06/14 3:00 AM) 2.9 K/CMM (04/05/14 6:13 AM) 2.5 K/CMM (04/03/14 5:00 AM) Segs-Bands # [1.5-8.1 K/CMM] 1.3 K/CMM (04/06/14 3:00 AM) 1.2 K/CMM (04/05/14 6:13 AM) 1.1 K/CMM (04/03/14 5:00 AM) Lymphocytes # [1.0-5.5 K/CMM] 0.4 K/CMM (04/06/14 3:00 AM) 0.4 K/CMM (04/05/14 6:13 AM) 0.3 K/CMM (04/03/14 5:00 AM) Monocytes # [0.0-0.8 K/CMM] 0.1 K/CMM (04/06/14 3:00 AM) 0.1 K/CMM (04/05/14 6:13 AM) 0.1 K/CMM (04/03/14 5:00 AM) Eosinophils # [0.0-0.5 K/CMM] 0.1 K/CMM (04/05/14 6:13 AM) Basophils # [0.0-0.2 K/CMM] 44 mm/hr *HI* (04/02/14 11:22 AM) Sed Rate [0-20 mm/hr] 13.8 seconds (04/01/14 3:00 PM) PT [12.0-14.7 seconds] 1.07 7 (04/01/14 3:00 PM) INR [0.85-1.17] 33.7 seconds 8 (04/02/14 11:22 AM) 26.6 seconds 9 (04/01/14 3:00 PM) PTT [22.9-35.8 seconds] 7Interpretive Data: RECOMMENDED RANGES FOR PROTIME INR: 2.0-3.0 for most medical and surgical thromboembolic states. 2.5-3.5 for artificial heart valves and recurrent embolism. INR SHOULD BE USED ONLY FOR PATIENTS ON STABLE ANTICOAGULANT THERAPY. 8Interpretive Data: Heparin Therapeutic Range: 57 - 92 Seconds 9Interpretive Data: Heparin Therapeutic Range: 57 - 92 Seconds Medications Administered During Your Visit No data available for this section Immunizations Vaccine Date Refusal Reason pneumococcal 13-valent vaccine1 03/11/14 1Admin Note: pt got it at [facility]=apr 2012 Social History Social History Type Response Smoking Status Never smoker, Exposure to Tobacco Smoke None, Cigarette Smoking Last 365 Days No, Reg Smoking Cessation Counseling No Assessment and Plan Extracted from: Title: Clinical Document Author: Ricardo Bocanegra DO Date: 04/05/14 Progress Daily [facility] SUBJECTIVE Pt is feeling better this morning, but thinks she is having SOB and coughing OBJECTIVE Vital Signs (last 24 hrs) Last Charted Minimum Maximum Temp98.3 (APR 05 13:03)98.3 (APR 05 13:03)98.7 (APR 05 00:36) Heart Rate80 (APR 05 13:03)77 (APR 04 16:27)87 (APR 05 00:36) Resp Rate 15 (APR 05 13:03)14 (APR 04 16:27)18 (APR 04 20:14) [id number] (APR 05 13:03)110 (APR 05 04:00)H 142 (APR 04 16:27) DBP67 (APR 05 13:03)62 (APR 04 20:14)78 (APR 04 16:27) Labs (Last four charted values) WBC 4.7(MAR 18)4.0(MAR 16)8.3(APR 01) Hgb L 10.6(MAR 18)L 8.7(MAR 16)L 10.7(APR 01) Hct L 32.8(MAR 18)L 26.9(APR 03)L 32.4(APR 01) Plt 232(APR 05)182(APR 03)197(APR 02)205(APR 01) Na 135(MAR 18)141(MAR 16)135(APR 01) K 3.7(MAR 18)4.0(MAR 16)4.1(APR 01) CO2 31(MAR 18)31(APR 03)28(APR 01) Cl 98(MAR 18)106(MAR 16)97(APR 01) Cr 1.0(MAR 18)1.1(MAR 16)1.4(MAR 15)H 1.9(APR 01) BUN 7(APR 05)10(APR 03)22(APR 01) Glucose Random H 206(MAR 18)H 189(MAR 16)H 178(APR 01) Ca 9.3(MAR 18)L 8.4(MAR 16)8.7(APR 01) PT 13.8(APR 01) INR 1.07(APR 01) PTT 33.7(MAR 15)26.6(APR 01) Troponin <0.02(APR 01) CK MB <0.5(APR 01) Total CK 85(APR 01) Input/Output RecordInOutBal [id number] Tot 225 0 225 08/1724hr Tot [phone] ASSESSMENT & EXAM Gen. Pt is AOX3 in no acute distress HEET: Normocephalic, nontraumatic. NECK: Supple, no JVD or Lymphadenopathy LUNGS: Clear on auscultation B/l with no wheezing or crackles HEART: S1, S2.RRR with no murmurs ABDOMEN: Soft, NT/ND with good BS CENTRAL NERVOUS SYSTEM: Patient moving all extremities grossly well. LOWER EXTREMITIES: B/l legs erythema is resolving nicely PLAN & TREATMENT Pt readmitted with LE redness concerning for Cellulitis Vs Vasculitis -Appreciated ID consult -C/w Daptomycin for now -F/u with Rheumathology consult -C/w Benadry for itching -I am less convince we are dealing with infetion here -Will discuss with Dr healy and possible D/c ABX and d/c home to f/u with Rheumathologist DIAGNOSES & PROBLEMS Cellulitis ? Vasculitis Paroxysmal A-fib DM CAD Fibromyalgia Dementia Depression Scheduled Meds (13):AMIODarone, DAPTOmycin + Sodium Chloride 0.9% IV 50 mL, atorvastatin, benzonatate, donepezil (Aricept), enoxaparin, isosorbide mononitrate, levothyroxine, lisinopril, metoprolol (Toprol-XL 25 mg oral tablet, extended release), pantoprazole (Protonix), pramipexole, venlafaxine (Effexor XR) Unscheduled Meds: None PRN Meds (21):ALPRAZolam (ALPRAZOLam), Dextrose 50% in Water IV (Dextrose 50% Syringe), Dextrose 50% in Water IV (Dextrose 50% Syringe), albuterol-ipratropium (DuoNeb inhalation solution), codeine-guaiFENesin (Robitussin-AC oral syrup), cyclobenzaprine, diphenhydrAMINE (Benadryl), fluticasone nasal (fluticasone nasal 0.05 mg/inh spray), glucagon, insulin aspart, insulin aspart, insulin aspart, insulin aspart, insulin aspart, insulin aspart, insulin aspart, insulin aspart, insulin aspart, lactulose (lactulose 10 g/15 mL oral syrup), nitroglycerin (nitroglycerin 0.4 mg sublingual tablet), promethazine + Sodium Chloride 0.9% IV 50 mL (Phenergan + Sodium Chloride 0.9% IV 50 mL) One Time Meds: None Continuous Infusions: None
--- OUTSIDE RECORDS SUMMARY | 2018-08-13 18:24 | XMS REPORT | Summary of Care ---
Author Organization Unknown Address Unknown Phone Unavailable Encounter HQ Rodriguez(KIRSTIE) [id number] Date(s): 01/18/14 - 01/18/14 [facility] [address] [place], [place] [id number] [place] [address] Discharge Diagnosis: Foot contusion Discharge Diagnosis: Urinary tract infection Discharge Disposition: Home Physician Attending: Soniya Amador MD Reason for Visit DR SENT Vital Signs 1 2 3 Most recent to oldest [Reference Range]: 152.4 cm (01/18/14 10:21 AM) Height 98.6 DegF (01/18/14 3:14 PM) 98.6 DegF (01/18/14 3:10 PM) 98.3 DegF (01/18/14 10:21 AM) Temperature Oral [96.4-99.1 DegF] 118 mmHg (01/18/14 3:14 PM) 122 mmHg (01/18/14 3:10 PM) 120 mmHg (01/18/14 11:27 AM) Systolic Blood Pressure [90-140 mmHg] 62 mmHg (01/18/14 3:14 PM) 62 mmHg (01/18/14 3:10 PM) 60 mmHg (01/18/14 11:27 AM) Diastolic Blood Pressure [60-90 mmHg] 20 BRMIN (01/18/14 3:14 PM) 16 BRMIN (01/18/14 3:10 PM) 18 BRMIN (01/18/14 11:27 AM) Respiratory Rate [14-20 BRMIN] 76 bpm (01/18/14 3:14 PM) 76 bpm (01/18/14 3:10 PM) 80 bpm (01/18/14 11:27 AM) Peripheral Pulse Rate [60-100 bpm] 90.909 kg (01/18/14 10:21 AM) Weight 39.14 m2 (01/18/14 10:21 AM) Body Mass Index Problem List Condition Effective [...] disease(Confirmed) Psoriasis(Confirmed) Active Allergies, Adverse Reactions, Alerts Substance Reaction Severity Status cefuroxime Active cephalexin Active ciprofloxacin Active Iodine PENITENTIARY Active penicillin Active sulfa drugs Active trimethoprim Active Medications Levaquin 500 mg oral tablet 500 mg=1 tab, PO, Q24H, # 7 tab, 0 Refill(s) Start Date: 01/18/14 Stop Date: 01/25/14 Status: Ordered Results URINE AND STOOL Most recent to 1 oldest [Reference Range]: UA Turbidity [Clear] Slight *ABN* (01/18/14 1:14 PM) UA Color Ltyellow *NA* (01/18/14 1:14 PM) UA pH [5.0-8.0] 7.0 (01/18/14 1:14 PM) UA Spec Grav 1.004 [<=1.030] (01/18/14 1:14 PM) UA Glucose [Negative Negative mg/dL mg/dL] *NA* (01/18/14 1:14 PM) UA Blood [Negative] Small *ABN* (01/18/14 1:14 PM) UA Ketones [Negative Negative mg/dL mg/dL] *NA* (01/18/14 1:14 PM) UA Protein [Negative Negative mg/dL mg/dL] (01/18/14 1:14 PM) UA Urobilinogen <=1.0 mg/dL [0.1-1.0 mg/dL] *NA* (01/18/14 1:14 PM) UA Bili [Negative] Negative *NA* (01/18/14 1:14 PM) UA Leuk Est Small [Negative] *ABN* (01/18/14 1:14 PM) UA Nitrite Negative [Negative] (01/18/14 1:14 PM) UA WBC [0-5 /HPF] 35 /HPF *HI* (01/18/14 1:14 PM) UA RBC [0-2 /HPF] 2 /HPF (01/18/14 1:14 PM) UA Bacteria [None Occasional /HPF Seen /HPF] *NA* (01/18/14 1:14 PM) UA Sq Epi [Few /LPF] Few /LPF *NA* (01/18/14 1:14 PM) Medications Administered During Your Visit No data available for this section Immunizations No data available for this section Social History Social History Type Response Smoking Status Never smoker, Exposure to Tobacco Smoke None, Cigarette Smoking Last 365 Days No, Reg Smoking Cessation Counseling No
--- OUTSIDE RECORDS SUMMARY | 2018-08-13 18:24 | XMS REPORT | Summary of Care ---
Author Organization Unknown Address Unknown Phone Unavailable Encounter HQ Rodriguez(KIRSTIE) [id number] Date(s): 04/27/14 - 04/27/14 [facility] [address] [place], [place] [id number] [place] [address] Discharge Disposition: Home Physician Attending: Ania Turner MD Reason for Visit 786.2 Problem List Condition Effective Dates Status Health [...] cefuroxime Active cephalexin Active ciprofloxacin Active Iodine PRISON Active penicillin Active sulfa drugs Active trimethoprim Active Medications No data available for this section Medications Administered During Your Visit No data available for this section Immunizations Vaccine Date Refusal Reason pneumococcal 13-valent vaccine1 03/11/14 1Admin Note: pt got it at [facility]=apr 2012 Social History Social History Type Response Smoking Status Never smoker, Exposure to Tobacco Smoke None, Cigarette Smoking Last 365 Days No, Reg Smoking Cessation Counseling No
--- OUTSIDE RECORDS SUMMARY | 2018-08-13 18:25 | XMS REPORT | Summary of Care ---
Author Author [facility] [place] [facility] Organization [facility] Address Unknown Phone Unavailable Encounter TREVON Frias(KIRSTIE) [id number] Date(s): 03/01/15 - 03/01/15 [facility] [place] [facility] [address] [place] [address]- Discharge Disposition: Home Attending Physician: Laura Cordova MD Admitting Physician: Laura Cordova MD Vital Signs No data available for this section Problem List Condition Effective Dates Status Health Status Informant Asthma(Confirmed) Active Bypass(Confirmed) Resolved CAD - Coronary Active artery disease(Confirmed) COPD(Confirmed) Active Critical illness Active myopathy(Confirmed) Depression(Confirmed Active ) Diabetes Active mellitus(Confirmed) Fibromyalgia(Confirm Active ed) History of - Active multiple allergies(Confirmed) Hyperlipidemia(Confi Active rmed) Hypertension(Confirm Active ed) 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) MRSA(Confirmed)1, 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 Sexual Sexually active: No. Exercise Exercise duration: 0.1 Employment/School Operates hazardous equipment: No. Alcohol Never Smoking Status Never smoker; Exposure to Tobacco Smoke None; Cigarette Smoking Last 365 Days No; Reg Smoking Cessation Counseling No 1up to the bathroom. Assessment and Plan No data available for this section
--- OUTSIDE RECORDS SUMMARY | 2018-08-13 18:25 | XMS REPORT | Summary of Care ---
Author Organization Unknown Address Unknown Phone Unavailable Encounter [facility] Rodriguez(KIRSTIE) [id number] Date(s): 06/29/14 - 07/05/14 [facility] [address] Discharge Disposition: Home Physician Attending: Rowena Kay MD Physician Admitting: Rowena Kay MD Reason for Visit CELLULITIS Vital Signs 1 2 3 Most recent to oldest [Reference Range]: 152.4 cm (06/29/14 5:06 PM) Height 98.1 DegF (07/05/14 11:00 AM) 98.5 DegF (07/05/14 8:08 AM) 98.2 DegF (07/05/14 4:00 AM) Temperature Oral [96.4-99.1 DegF] 149 mmHg *HI* (07/05/14 11:00 AM) 113 mmHg (07/05/14 8:08 AM) 137 mmHg (07/05/14 4:00 AM) Systolic Blood Pressure [90-140 mmHg] 63 mmHg (07/05/14 11:00 AM) 64 mmHg (07/05/14 8:08 AM) 66 mmHg (07/05/14 4:00 AM) Diastolic Blood Pressure [60-90 mmHg] 18 BRMIN (07/05/14 11:00 AM) 18 BRMIN (07/05/14 8:08 AM) 18 BRMIN (07/05/14 4:00 AM) Respiratory Rate [14-20 BRMIN] 81 bpm (07/05/14 11:00 AM) 76 bpm (07/05/14 8:08 AM) 86 bpm (07/05/14 4:00 AM) Peripheral Pulse Rate [60-100 bpm] 80.909 kg (06/29/14 5:06 PM) Weight 34.84 m2 (06/29/14 5:06 PM) Body Mass Index Problem List Condition [...] cefuroxime Active cephalexin Active ciprofloxacin Active Iodine JAIL Active penicillin Active sulfa drugs Active trimethoprim Active Medications AMIODarone 100 mg, 0.5 tab, Route: PO, Drug form: TAB, Bedtime, Dosing Weight 80.909, kg, S tart date: 07/02/14 21:00:00, Duration: 30 day, Stop date: 07/31/14 21:00:00 Notes: (Same as: Cordarone) Start Date: 07/02/14 Stop Date: 07/05/14 Status: Discontinued Aricept 5 mg, 1 tab, Route: PO, Drug form: TAB, Bedtime, Dosing Weight 80.909, kg, Start date: 07/02/14 21:00:00, Duration: 30 day, Stop date: 07/31/14 21:00:00 Notes: (Same as: Aricept) Start Date: 07/02/14 Stop Date: 07/05/14 Status: Discontinued atorvastatin 40 mg, 1 tab, Route: PO, Drug form: TAB, Bedtime, Dosing Weight 80.909, kg, Star t date: 07/02/14 21:00:00, Duration: 30 day, Stop date: 07/31/14 21:00:00 Notes: (Same as: Lipitor) Start Date: 07/02/14 Stop Date: 07/05/14 Status: Discontinued Benadryl 25 mg, 1 tab, Route: PO, Drug form: TAB, Q6H, Dosing Weight 80.909, kg, PRN as n eeded for itching, Start date: 06/30/14 21:16:00, Duration: 30 day, Stop date: 09/30/13 21:15:00 Start Date: 06/30/14 Stop Date: 07/05/14 Status: Discontinued Benadryl 25 mg, 1 tab, Route: PO, Drug form: TAB, Q4H, Dosing Weight 80.909, kg, PRN as n eeded for itching, Start date: 06/30/14 21:17:00, Duration: 30 day, Stop date: 09/30/13 21:16:00 Start Date: 06/30/14 Stop Date: 07/05/14 Status: Discontinued cefTRIAXone + Sodium Chloride 0.9% IV 100 mL 1 gm, Route: IVPB, Drug form: PDR/INJ, [id number], Dosing Weight 80.909, kg, Start date: 06/30/14 4:00:00, Duration: 30 day, Stop date: 07/29/14 4:00:00 Notes: (Same As: Rocephin). Use with 100ml NS mini-bag PLUS and infuse over 30 min Start Date: 06/30/14 Stop Date: 07/05/14 Status: Discontinued chlordiazePOXIDE-clidinium 5 mg-2.5 mg oral capsule 1 cap, Route: PO, Drug Form: CAP, Dosing Weight 80.909, kg, BID-Before Meals, St art date: 07/02/14 7:30:00, Duration: 30 day, Stop date: 07/31/14 16:30:00 Notes: (Same As: Librax) Start Date: 07/02/14 Stop Date: 07/05/14 Status: Discontinued Dextrose 50% Syringe 25 gm, 50 mL, Route: IVP, Drug Form: INJ, Dosing Weight 80.909, kg, PRN, PRN Blo od Glucose Results, Start date: 06/30/14 4:03:00, Duration: 30 day, Stop date: 09/30/13 4:02:00 Start Date: 06/30/14 Stop Date: 07/05/14 Status: Discontinued Dextrose 50% Syringe 12.5 gm, 25 mL, Route: IVP, Drug Form: INJ, Dosing Weight 80.909, kg, PRN, PRN B lood Glucose Results, Start date: 06/30/14 4:03:00, Duration: 30 day, Stop date: 07/30/14 4:02:00 Start Date: 06/30/14 Stop Date: 07/05/14 Status: Discontinued Effexor 100 mg, 4 tab, Route: PO, Drug form: TAB, Bedtime, Dosing Weight 80.909, kg, Sta rt date: 07/02/14 1:00:00, Duration: 30 day, Stop date: 07/31/14 21:00:00 Notes: (Same As: Effexor) Start Date: 07/02/14 Stop Date: 07/05/14 Status: Discontinued enoxaparin 30 mg, 0.3 mL, Route: SUB-Q, Drug form: INJ, [id number], Dosing Weight 80.909, kg, Start date: 06/30/14 10:00:00, Duration: 30 day, Stop date: 07/29/14 10:00:00 Notes: (Same as: Lovenox) Start Date: 06/30/14 Stop Date: 07/05/14 Status: Discontinued fluticasone nasal 0.05 mg/inh spray 1 inhalation, Route: NASAL, Drug Form: SPRY, Daily, PRN Allergies, Start date: 08/31/13 23:27:00, Duration: 30 day, Stop date: 07/31/14 23:26:00 Notes: (Same as: Flonase) Start Date: 07/01/14 Stop Date: 07/05/14 Status: Discontinued furosemide 20 mg oral tablet 20 mg=1 tab, PO, Daily, swelling Start Date: 06/30/14 Status: Ordered furosemide 20 mg oral tablet 20 mg, 1 tab, Route: PO, Drug form: TAB, Daily, Dosing Weight 80.909, kg, PRN Ed chari, Start date: 07/01/14 22:55:00, Stop date: 07/31/14 22:54:00, swelling Notes: (Same as: Lasix) May cause GI upset. Give with food or milk. Start Date: 07/01/14 Stop Date: 07/05/14 Status: Discontinued glucagon 1 mg, Route: IM, Drug form: PDR/INJ, PRN, Dosing Weight 80.909, kg, PRN Blood Gl ucose Results, Start date: 06/30/14 4:03:00, Duration: 30 day, Stop date: 4:02:00 Start Date: 06/30/14 Stop Date: 07/05/14 Status: Discontinued HumaLOG Mix 75/25 33 unit, SUB-Q, BID-Meals, with breakfast and dinner Special Instructions: with breakfast and dinner Start Date: 06/30/14 Status: Ordered Humalog Mix 75/25 Route: SUB-Q, Drug form: SUSP, BID-Meals, Dosing Weight 80.909, kg, Start date: 07/02/14 8:00:00, Duration: 30 day, Stop date: 07/31/14 17:00:00 Start Date: 07/02/14 Stop Date: 07/01/14 Status: Deleted HYDROcodone-ibuprofen 5 mg-200 mg oral tablet 1 tab, Route: PO, Drug Form: TAB, Dosing Weight 80.909, kg, Q4H, PRN Pain Score 4-6, Start date: 07/01/14 23:03:00, Duration: 30 day, Stop date: 07/31/14 23:02: 00 Notes: (Same as: Vicoprofen) Start Date: 07/01/14 Stop Date: 07/05/14 Status: Discontinued hydrOXYzine 20 mg, 2 tab, Route: PO, Drug form: TAB, QID, Dosing Weight 80.909, kg, PRN Itch ing, Start date: 07/03/14 8:13:00, Duration: 30 day, Stop date: 08/02/14 8:12:00 Notes: (Same as: Atarax) Avoid alcohol. Start Date: 07/03/14 Stop Date: 07/05/14 Status: Discontinued influenza virus vaccine, inactivated 0.5 mL, Route: IM, Drug Form: SUSP, Daily, Start date: 06/30/14 9:00:00, Duratio n: 1 doses or times, Stop date: 06/30/14 9:00:00 Notes: (Same as: Fluzone Quadrivalent) Start Date: 06/30/14 Stop Date: 06/30/14 Status: Completed insulin aspart 4 unit, 0.04 mL, Route: SUB-Q, Drug form: SOLN, TID-Before Meals, Dosing Weight 80.909, kg, PRN Blood Glucose Results, Start date: 06/30/14 4:03:00, Duration: 3 0 day, Stop date: 07/30/14 4:02:00 Notes: Roll in palms of hands gently; Do not shake vigorously. (Same as: NovoLO G)"single patient use only" Stable for 28 days at room temperature.Expires in _ ____ days from Date Start Date: 06/30/14 Stop Date: 07/05/14 Status: Discontinued insulin aspart 6 unit, 0.06 mL, Route: SUB-Q, Drug form: SOLN, TID-Before Meals, Dosing Weight 80.909, kg, PRN Blood Glucose Results, Start date: 06/30/14 4:03:00, Duration: 3 0 day, Stop date: 07/30/14 4:02:00 Notes: Roll in palms of hands gently; Do not shake vigorously. (Same as: NovoLO G)"single patient use only" Stable for 28 days at room temperature.Expires in _ ____ days from Date Start Date: 06/30/14 Stop Date: 07/05/14 Status: Discontinued insulin aspart 8 unit, 0.08 mL, Route: SUB-Q, Drug form: SOLN, TID-Before Meals, Dosing Weight 80.909, kg, PRN Blood Glucose Results, Start date: 06/30/14 4:03:00, Duration: 3 0 day, Stop date: 07/30/14 4:02:00 Notes: Roll in palms of hands gently; Do not shake vigorously. (Same as: NovoLO G)"single patient use only" Stable for 28 days at room temperature.Expires in _ ____ days from Date Start Date: 06/30/14 Stop Date: 07/05/14 Status: Discontinued insulin aspart 10 unit, 0.1 mL, Route: SUB-Q, Drug form: SOLN, TID-Before Meals, Dosing Weight 80.909, kg, PRN Blood Glucose Results, Start date: 06/30/14 4:03:00, Duration: 3 0 day, Stop date: 07/30/14 4:02:00 Notes: Roll in palms of hands gently; Do not shake vigorously. (Same as: NovoLO G)"single patient use only" Stable for 28 days at room temperature.Expires in _ ____ days from Date Start Date: 06/30/14 Stop Date: 07/05/14 Status: Discontinued insulin aspart 2 unit, 0.02 mL, Route: SUB-Q, Drug form: SOLN, TID-Before Meals, Dosing Weight 80.909, kg, PRN Blood Glucose Results, Start date: 06/30/14 4:03:00, Duration: 3 0 day, Stop date: 07/30/14 4:02:00 Notes: Roll in palms of hands gently; Do not shake vigorously. (Same as: NovoLO G)"single patient use only" Stable for 28 days at room temperature.Expires in _ ____ days from Date Start Date: 06/30/14 Stop Date: 07/05/14 Status: Discontinued isosorbide mononitrate 30 mg, 1 tab, Route: PO, Drug form: ERTAB, QAM, Dosing Weight 80.909, kg, Start date: 07/02/14 9:00:00, Duration: 30 day, Stop date: 07/31/14 9:00:00 Notes: (Same as:Ankita)"Do Not Crush" Take on empty stomach/ full glass of water . Do not crush Start Date: 07/02/14 Stop Date: 07/05/14 Status: Discontinued K-Dur 10 10 mEq, 1 tab, Route: PO, Drug form: ERTAB, BID, Start date: 07/02/14 10:30:00, Duration: 30 day, Stop date: 08/01/14 9:00:00 Notes: (Same as: K-Dur 10)"Do Not Crush" With food and full glass of water Start Date: 07/02/14 Stop Date: 07/05/14 Status: Discontinued levothyroxine 150 microgram, 1 tab, Route: PO, Drug form: TAB, [id number], Dosing Weight 80.909, k g, Start date: 07/02/14 6:30:00, Duration: 30 day, Stop date: 07/31/14 6:30:00 Notes: Take 1 hour before or 2 hours after meal; Enteral feeds may interefere wi th the absorption of this medication. (Same as: Levothroid) Start Date: 07/02/14 Stop Date: 07/05/14 Status: Discontinued Macrobid 100 mg, Route: PO, Drug form: CAP, BID, Dosing Weight 80.909, kg, Start date: 9:00:00, Duration: 30 day, Stop date: 07/31/14 17:00:00 Start Date: 07/02/14 Stop Date: 07/02/14 Status: Canceled Macrobid 100 mg oral capsule 100 mg=1 cap, PO, BID Start Date: 06/30/14 Stop Date: 07/05/14 Status: Discontinued meclizine 12.5 mg, 1 tab, Route: PO, Drug form: TAB, TID, Dosing Weight 80.909, kg, PRN as needed for dizziness, Start date: 07/01/14 22:56:00, Stop date: 07/31/14 22:55: 00 Notes: (Same as: Antivert) Start Date: 07/01/14 Stop Date: 07/05/14 Status: Discontinued Nasonex 50 mcg/inh nasal spray 2 spray, NASAL, Daily, as needed for allergy symptoms Start Date: 06/30/14 Status: Ordered Nasonex 50 mcg/inh nasal spray 100 microgram, 2 spray, Route: NASAL, Daily, Drug form: SPRY, PRN as needed for allergy symptoms, Start date: 07/01/14 22:56:00, Stop date: 07/31/14 22:55:00 Start Date: 07/01/14 Stop Date: 07/01/14 Status: Deleted NexIUM 40 mg, Route: PO, Drug form: ECCAP, BID, Dosing Weight 80.909, kg, Start date: 09/01/13 9:00:00, Duration: 30 day, Stop date: 07/31/14 17:00:00 Start Date: 07/02/14 Stop Date: 07/01/14 Status: Deleted NovoLOG Mix 70/30 FlexPen 40 unit, 0.4 mL, Route: SUB-Q, Drug form: INJ, BID-Meals, Start date: 07/02/14 8 :00:00, Stop date: 07/31/14 17:00:00 Notes: Roll in palms of hands gently; Do not shake vigorously. (Same as: NovoLO G Mix)"single patient use only" Stable for 14 days at room temperatureExpires i n days from Date Start Date: 07/02/14 Stop Date: 07/05/14 Status: Discontinued NovoLOG Mix 70/30 FlexPen subcutaneous suspension 40, SUB-Q, BID, # 10 mL, 0 Refill(s), other Start Date: 07/05/14 Status: Ordered potassium chloride 10 mEq, 7.5 mL, Route: PO, Drug form: LIQ, BID, Dosing Weight 80.909, kg, Start date: 07/02/14 9:00:00, Duration: 30 day, Stop date: 07/31/14 17:00:00 Notes: (Same as: Potassium Chloride) Start Date: 07/02/14 Stop Date: 07/02/14 Status: Discontinued Protonix 40 mg, 1 tab, Route: PO, Drug form: ECTAB, BID-Before Meals, Start date: 4 7:30:00, Duration: 30 day, Stop date: 07/31/14 16:30:00 Notes: Tablet should not be chewed or crushed.(Same as: Protonix) Start Date: 07/02/14 Stop Date: 07/05/14 Status: Discontinued Saline Flush 0.9% 10 ml, Route: IVP, Drug Form: INJ, Dosing Weight 80.909, kg, PRN, PRN Line Flush , Start date: 06/30/14 3:47:00, Duration: 30 day, Stop date: 07/30/14 3:46:00 Notes: (Same as: BD Posiflush) Start Date: 06/30/14 Stop Date: 07/05/14 Status: Discontinued vancomycin 1 gm, Route: IVPB, Drug form: INJ, ONCE, Dosing Weight 80.909, kg, Priority: STA T, Start date: 06/30/14 0:31:00, Stop date: 06/30/14 0:31:00 Start Date: 06/30/14 Stop Date: 06/30/14 Status: Completed vancomycin Route: IV, Q24H, Dosing Weight 80.909, kg, Start date: 06/30/14 9:00:00, Duratio n: 30 day, Stop date: 07/29/14 9:00:00 Start Date: 06/30/14 Stop Date: 06/30/14 Status: Deleted vancomycin 1.25 gm, 250 mL, Route: IVPB, Drug form: INJ, [id number], Start date: 06/30/14 11:0 0:00, Duration: 30 day, Stop date: 07/29/14 11:00:00 Notes: Same as: Vancocin-NS (premixed)Infusion [id number] - 1500 mg: infuse over 1 .5 hours Start Date: 06/30/14 Stop Date: 07/05/14 Status: Discontinued vancomycin 1,213.635 mg, Route: IVPB, [id number], Dosing Weight 80.909, kg, Start date: 4 4:00:00, Duration: 30 day, Stop date: 07/29/14 20:00:00 Start Date: 06/30/14 Stop Date: 06/30/14 Status: Discontinued venlafaxine 25 mg oral tablet 100 mg=4 tab, PO, Bedtime, # 120 tab, 0 Refill(s), called to pharmacy Start Date: 07/05/14 Status: Ordered Results ELECTROLYTES 1 2 3 Most recent to oldest [Reference Range]: 142 mEq/L (07/02/14 4:24 AM) 140 mEq/L (07/01/14 12:35 PM) 137 mEq/L (06/30/14 4:39 AM) Sodium Lvl [135-145 mEq/L] 3.9 mEq/L (07/02/14 4:24 AM) 4.0 mEq/L (07/01/14 12:35 PM) 3.9 mEq/L (06/30/14 4:39 AM) Potassium Lvl [3.5-5.1 mEq/L] 103 mEq/L (07/02/14 4:24 AM) 103 mEq/L (07/01/14 12:35 PM) 103 mEq/L (06/30/14 4:39 AM) Chloride Lvl [95-109 mEq/L] 28 mEq/L (07/02/14 4:24 AM) 27 mEq/L (07/01/14 12:35 PM) 28 mEq/L (06/30/14 4:39 AM) CO2 [24-32 mEq/L] 14.9 mEq/L (07/02/14 4:24 AM) 14.0 mEq/L (07/01/14 12:35 PM) 9.9 mEq/L *LOW* (06/30/14 4:39 AM) AGAP [10.0-20.0 mEq/L] CHEM PANEL 1 2 3 Most recent to oldest [Reference Range]: 1.0 mg/dL (07/02/14 4:24 AM) 1.0 mg/dL (07/01/14 12:35 PM) 1.2 mg/dL (06/30/14 4:39 AM) Creatinine Lvl [0.5-1.4 mg/dL] 54 mL/min/1.73m2 1 *NA* (07/02/14 4:24 AM) 54 mL/min/1.73m2 2 *NA* (07/01/14 12:35 PM) 43 mL/min/1.73m2 3 *NA* (06/30/14 4:39 AM) eGFR 11 mg/dL (07/02/14 4:24 AM) 13 mg/dL (07/01/14 12:35 PM) 20 mg/dL (06/30/14 4:39 AM) BUN [7-22 mg/dL] 17 (06/30/14 4:39 AM) 17 (06/29/14 6:24 PM) B/C Ratio [6-25] 145 mg/dL 4 *HI* (07/02/14 4:24 AM) 210 mg/dL 5 *HI* (07/01/14 12:35 PM) 149 mg/dL 6 *HI* (06/30/14 4:39 AM) Glucose Lvl [70-99 mg/dL] 5.9 g/dL *LOW* (06/30/14 4:39 AM) 6.9 g/dL (06/29/14 6:24 PM) Total Protein [6.4-8.4 g/dL] 3.2 g/dL *LOW* (06/30/14 4:39 AM) 3.9 g/dL (06/29/14 6:24 PM) Albumin Lvl [3.5-5.0 g/dL] 2.7 g/dL (06/30/14 4:39 AM) 3.0 g/dL (06/29/14 6:24 PM) Globulin [2.0-4.0 g/dL] 1.2 (06/30/14 4:39 AM) 1.3 (06/29/14 6:24 PM) A/G Ratio [0.7-1.6] 8.9 mg/dL (07/02/14 4:24 AM) 8.8 mg/dL (07/01/14 12:35 PM) 8.5 mg/dL (06/30/14 4:39 AM) Calcium Lvl [8.5-10.5 mg/dL] 20 unit/L (06/30/14 4:39 AM) 22 unit/L (06/29/14 6:24 PM) ALT [0-65 unit/L] 23 unit/L (06/30/14 4:39 AM) 27 unit/L (06/29/14 6:24 PM) AST [0-37 unit/L] 76 unit/L (06/30/14 4:39 AM) 94 unit/L (06/29/14 6:24 PM) Alk Phos [39-136 unit/L] 0.3 mg/dL (06/30/14 4:39 AM) 0.3 mg/dL (06/29/14 6:24 PM) Bili Total [0.2-1.3 mg/dL] 1.5 mMol/L (06/30/14 4:39 AM) Lactic Acid Lvl [0.5-2.2 mMol/L] 1Result [...] values reflect the clinical guidelines of the [place] [employer]. 5Interpretive Data: Adult reference range values reflect the clinical guidelines of the [place] [employer]. 6Interpretive Data: Adult reference range values reflect the clinical guidelines of the [place] [employer]. CARDIAC ENZYMES 1 2 3 Most recent to oldest [Reference Range]: 44 pg/mL 7 (06/29/14 10:29 PM) BNP [<=100 pg/mL] 7Interpretive Data: Elevated results are in line with increasing severity of congestive heart failure. Minor elevations between 100 and 300 may be seen with Myocardial Ischemia, Sodium retaining drugs, and compensated/treated heart failure. TOXICOLOGY 1 2 3 Most recent to oldest [Reference Range]: 1030 *NA* (07/04/14 9:23 AM) Vanco Tr TND 11.7 ug/ml 8 *NA* (07/04/14 9:23 AM) Vanco Tr 8Interpretive Data: Therapeutic Range: Trough: 10 - 20 ug/mL Peak: 20 - 40 ug/mL Potential Toxicity: >80 ug/mL URINE AND STOOL 1 2 3 Most recent to oldest [Reference Range]: Clear (06/29/14 11:06 PM) UA Turbidity [Clear] Fouzia *NA* (06/29/14 11:06 PM) UA Color 5.0 (06/29/14 11:06 PM) UA pH [5.0-8.0] 1.021 (06/29/14 11:06 PM) UA Spec Grav [<=1.030] Negative mg/dL *NA* (06/29/14 11:06 PM) UA Glucose [Negative mg/dL] Negative (06/29/14 11:06 PM) UA Blood [Negative] Negative mg/dL *NA* (06/29/14 11:06 PM) UA Ketones [Negative mg/dL] Negative mg/dL (06/29/14 11:06 PM) UA Protein [Negative mg/dL] 4.0 mg/dL *HI* (06/29/14 11:06 PM) UA Urobilinogen [0.1-1.0 mg/dL] Negative *NA* (06/29/14 11:06 PM) UA Bili [Negative] Small *ABN* (06/29/14 11:06 PM) UA Leuk Est [Negative] Positive *ABN* (06/29/14 11:06 PM) UA Nitrite [Negative] 147 /HPF *HI* (06/29/14 11:06 PM) UA WBC [0-5 /HPF] 8 /HPF *HI* (06/29/14 11:06 PM) UA RBC [0-2 /HPF] Moderate /HPF *ABN* (06/29/14 11:06 PM) UA Bacteria [None Seen /HPF] Moderate /LPF *ABN* (06/29/14 11:06 PM) UA Sq Epi [Few /LPF] HEMATOLOGY 1 2 3 Most recent to oldest [Reference Range]: 3.1 K/CMM *LOW* (07/02/14 4:24 AM) 3.0 K/CMM *LOW* (07/01/14 12:35 PM) 5.9 K/CMM (06/30/14 4:39 AM) WBC [3.7-10.4 K/CMM] 3.56 M/CMM *LOW* (07/02/14 4:24 AM) 3.80 M/CMM *LOW* (07/01/14 12:35 PM) 3.41 M/CMM *LOW* (06/30/14 4:39 AM) RBC [4.20-5.40 M/CMM] 9.4 g/dL *LOW* (07/02/14 4:24 AM) 9.8 g/dL *LOW* (07/01/14 12:35 PM) 9.1 g/dL *LOW* (06/30/14 4:39 AM) Hgb [12.0-16.0 g/dL] 29.0 % *LOW* (07/02/14 4:24 AM) 31.2 % *LOW* (07/01/14 12:35 PM) 27.7 % *LOW* (06/30/14 4:39 AM) Hct [36.0-48.0 %] 81.4 fL (07/02/14 4:24 AM) 82.1 fL (07/01/14 12:35 PM) 81.3 fL (06/30/14 4:39 AM) MCV [80.0-98.0 fL] 26.5 pg *LOW* (07/02/14 4:24 AM) 25.9 pg *LOW* (07/01/14 12:35 PM) 26.6 pg *LOW* (06/30/14 4:39 AM) MCH [27.0-31.0 pg] 32.5 g/dL (07/02/14 4:24 AM) 31.5 g/dL *LOW* (07/01/14 12:35 PM) 32.7 g/dL (06/30/14 4:39 AM) MCHC [32.0-36.0 g/dL] 15.6 % *HI* (07/02/14 4:24 AM) 15.7 % *HI* (07/01/14 12:35 PM) 15.5 % *HI* (06/30/14 4:39 AM) RDW [11.5-14.5 %] 146 K/CMM (07/02/14 4:24 AM) 135 K/CMM (07/01/14 12:35 PM) 134 K/CMM (06/30/14 4:39 AM) Platelet [133-450 K/CMM] 7.5 fL (07/02/14 4:24 AM) 7.7 fL (07/01/14 12:35 PM) 7.6 fL (06/30/14 4:39 AM) MPV [7.4-10.4 fL] 62.7 % (07/01/14 12:35 PM) 74.4 % (06/30/14 4:39 AM) 80.9 % *HI* (06/29/14 6:24 PM) Segs [45.0-75.0 %] 28.7 % (07/01/14 12:35 PM) 20.4 % (06/30/14 4:39 AM) 16.1 % *LOW* (06/29/14 6:24 PM) Lymphocytes [20.0-40.0 %] 6.8 % (07/01/14 12:35 PM) 4.1 % (06/30/14 4:39 AM) 2.0 % (06/29/14 6:24 PM) Monocytes [2.0-12.0 %] 1.0 % (07/01/14 12:35 PM) 0.8 % (06/30/14 4:39 AM) 0.7 % (06/29/14 6:24 PM) Eosinophils [0.0-4.0 %] 0.8 % (07/01/14 12:35 PM) 0.3 % (06/30/14 4:39 AM) 0.3 % (06/29/14 6:24 PM) Basophils [0.0-1.0 %] 1.9 K/CMM (07/01/14 12:35 PM) 4.4 K/CMM (06/30/14 4:39 AM) 6.6 K/CMM (06/29/14 6:24 PM) Segs-Bands # [1.5-8.1 K/CMM] 0.9 K/CMM *LOW* (07/01/14 12:35 PM) 1.2 K/CMM (06/30/14 4:39 AM) 1.3 K/CMM (06/29/14 6:24 PM) Lymphocytes # [1.0-5.5 K/CMM] 0.2 K/CMM (07/01/14 12:35 PM) 0.2 K/CMM (06/30/14 4:39 AM) 0.2 K/CMM (06/29/14 6:24 PM) Monocytes # [0.0-0.8 K/CMM] 0.1 K/CMM (06/29/14 6:24 PM) Eosinophils # [0.0-0.5 K/CMM] Medications Administered During Your Visit No data available for this section Immunizations Vaccine Date Refusal Reason influenza virus vaccine, inactivated 06/30/14 pneumococcal 13-valent vaccine1 03/11/14 1Admin Note: pt got it at [facility]=apr 2012 Social History Social History Type Response Substance Abuse Use: None Sexual Sexually active: No Exercise 1 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 Assessment and Plan Extracted from: Title: Clinical Document Author: Rowena Kay MD Date: 07/07/14 Progress Note - Daily [facility] Completed: Jun, 16:15 by Rowena Kay MD RM: [id number] - 1P, SE [id number] (: [id number]) F Attending: Rowena Kay MDPhone: Service: Internal Medicine Reason for Admission: CELLULITIS Working DRG: Cellulitis w/o GROUP HOME Code status: Full Code [Ordered]Current diet: Isolation: None Documented Allergies: trimethoprim, cefuroxime, cephalexin, sulfa drugs, Iodine JAIL, penicillin, ciprofloxacin SUBJECTIVE OBJECTIVE (no lab data in past 24 hours) Lang still necessary (Yes/No): Line still necessary (Yes/No): VitalsTmp(F)[id number] (no data in last 48 hours) 24 Hr Tmax: No Data AvailableVital Signs are the last 5 in the past 48 hours. DateWt(kg)Wt(lb)Ht(cm)Ht(in)Method 06/29 (initial) 80.91 [phone] 60.00Stated I&ORecordInOutBal 06/1924hr Tot 0 0 0 06/1824hr Tot 0 0 0 Medications (0) Active Scheduled Meds: None Unscheduled Meds: None PRN Meds: None One Time Meds: None Continuous Infusions: None ASSESSMENT & EXAM PLAN & TREATMENT DIAGNOSES & PROBLEMS d/c summary [id number] Ready for Discharge (Yes/No)? 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
--- OUTSIDE RECORDS SUMMARY | 2018-08-13 18:26 | XMS REPORT | Summary of Care ---
Author Author [facility] Organization [facility] Address Unknown Phone Unavailable Encounter TREVON Frias(KIRSTIE) [id number] Date(s): 05/10/15 - 05/10/15 [facility] [address] [place] [address]- U [phone] Discharge Disposition: Home Attending Physician: Braden Gaines MD Referring Physician: Dina Sorensen MD Vital Signs Most recent to 1 oldest [Reference Range]: Height 149.8 cm (05/10/15 1:02 PM) Most recent to 1 oldest [Reference Range]: Temperature Oral 97.4 DegF [96.4-99.1 DegF] (05/10/15 1:02 PM) Most recent to 1 oldest [Reference Range]: Blood Pressure 132/61 mmHg [90-140/60-90 mmHg] (05/10/15 1:02 PM) Most recent to 1 oldest [Reference Range]: Respiratory Rate 16 BRMIN [14-20 BRMIN] (05/10/15 1:02 PM) Most recent to 1 oldest [Reference Range]: Peripheral Pulse 66 bpm Rate [60-100 bpm] (05/10/15 1:02 PM) Most recent to 1 oldest [Reference Range]: Weight 75.653 kg (05/10/15 1:02 PM) Most recent to 1 oldest [Reference Range]: Body Mass Index 33.71 m2 (05/10/15 1:02 PM) Problem List Condition Effective Dates Status Health Status Informant Alzheimer's Active disease(Confirmed) Anemia(Confirmed) 01/02/15 Resolved Anxiety(Confirmed) Resolved Asthma(Confirmed) Active Bypass(Confirmed) Resolved CAD - Coronary Active artery disease(Confirmed) COPD(Confirmed) Active Critical illness Active myopathy(Confirmed) Depression(Confirmed Active ) Diabetes Active mellitus(Confirmed) Fibromyalgia(Confirm Active ed) History of - Active multiple allergies(Confirmed) Hyperlipidemia(Confi Active rmed) Hypertension(Confirm Active ed) 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) MRSA(Confirmed)1, 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 Allergies, Adverse Reactions, Alerts Substance Reaction Severity Status cefuroxime Active cephalexin Active ciprofloxacin Active erythromycin Active Iodine [facility] Active penicillin Active sulfa drugs Active trimethoprim Active Medications Dexilant PO, Daily, 0 Refill(s) Start Date: 05/10/15 Status: Ordered Results No data available for this section Immunizations Vaccine Date Refusal Reason influenza virus vaccine, inactivated 06/30/14 pneumococcal 13-valent vaccine1 03/11/14 1Admin Note: pt got it at [facility] - avera=apr 2012 Procedures Procedure Date Related Diagnosis Body 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 Sexual Sexually active: No. Exercise Exercise duration: 0.1 Employment/School Operates hazardous equipment: No. Alcohol Never Smoking Status Former smoker; Type: Cigarettes; Exposure to Tobacco Smoke None; Cigarette Smoking Last 365 Days No; Reg Smoking Cessation Counseling No2 1up to the bathroom. 2pt quit 33 yrs ago Assessment and Plan No data available for this section
--- OUTSIDE RECORDS SUMMARY | 2018-08-13 18:26 | XMS REPORT | Summary of Care ---
Author Organization Unknown Address Unknown Phone Unavailable Encounter [facility] Rodriguez(KIRSTIE) [id number] Date(s): 12/29/14 - 01/07/15 [facility] [address] [place] [address]- [phone] Discharge Disposition: Home Physician Attending: Rowena Kay MD Physician Admitting: Rowena Kay MD Vital Signs 1 2 3 Most recent to oldest [Reference Range]: 149.86 cm (12/29/14 7:17 PM) Height 98.1 DegF (01/07/15 8:00 AM) 98.4 DegF (01/07/15 1:28 AM) 98.9 DegF (01/06/15 7:59 PM) Temperature Oral [96.4-99.1 DegF] 134/79 mmHg (01/07/15 1:28 AM) 142/76 mmHg *HI* (01/06/15 9:09 PM) Blood Pressure [90-140/60-90 mmHg] 119 mmHg (01/07/15 8:00 AM) Systolic Blood Pressure [90-140 mmHg] 66 mmHg (01/07/15 8:00 AM) Diastolic Blood Pressure [60-90 mmHg] 16 BRMIN (01/07/15 8:19 AM) 16 BRMIN (01/07/15 8:00 AM) 18 BRMIN (01/07/15 1:28 AM) Respiratory Rate [14-20 BRMIN] 61 bpm (01/07/15 8:00 AM) 68 bpm (01/06/15 7:59 PM) 62 bpm (01/06/15 3:54 PM) Peripheral Pulse Rate [60-100 bpm] 83.636 kg (12/31/14 12:31 PM) 80 kg (12/29/14 7:17 PM) Weight 35.62 m2 (12/29/14 7:17 PM) Body Mass Index Problem List Condition [...] cefuroxime Active cephalexin Active ciprofloxacin Active Iodine [facility] Active penicillin Active sulfa drugs Active trimethoprim Active Medications acetaminophen 650 mg, 2 tab, Route: PO, Drug form: TAB, Q4H, Dosing Weight 80, kg, PRN Pain 1- 3/Temp > 100.4 F, Start date: 12/30/14 8:33:00, Duration: 30 day, Stop date: 01/29/15 8:32:00 Notes: Do not exceed 4 gm/day. (Same as: Tylenol) Start Date: 12/30/14 Stop Date: 01/07/15 Status: Discontinued ALPRAZOLam 0.25 mg, 1 tab, Route: PO, Drug form: TAB, BID, Dosing Weight 80, kg, PRN as nee ded for anxiety, Start date: 12/30/14 21:49:00, Duration: 30 day, Stop date: 21:48:00 Notes: With food or milk(Same as: Xanax) Start Date: 12/30/14 Stop Date: 01/07/15 Status: Discontinued ALPRAZOLam 0.25 mg oral tablet, disintegrating 0.25 mg=1 tab, PO, BID, PRN for anxiety, 0 Refill(s) Start Date: 12/30/14 Stop Date: 01/06/15 Status: Ordered AMIODarone 100 mg, 0.5 tab, Route: PO, Drug form: TAB, Bedtime, Dosing Weight 80, kg, Start date: 12/31/14 21:00:00, Duration: 30 day, Stop date: 01/29/15 21:00:00 Notes: (Same as: Cordarone) Start Date: 12/31/14 Stop Date: 01/07/15 Status: Discontinued atorvastatin 40 mg, 1 tab, Route: PO, Drug form: TAB, Bedtime, Dosing Weight 80, kg, Start da te: 12/31/14 21:00:00, Duration: 30 day, Stop date: 01/29/15 21:00:00 Notes: (Same as: Lipitor) Start Date: 12/31/14 Stop Date: 01/07/15 Status: Discontinued atropine 0.5 mg, 5 mL, Route: IVP, Drug form: INJ, PRN, PRN Bradycardia, Start date: 12/17 12/01 17:19:00, Duration: 30 day, Stop date: 01/29/15 17:18:00 Start Date: 12/30/14 Stop Date: 01/07/15 Status: Discontinued chlordiazePOXIDE-clidinium 5 mg-2.5 mg oral capsule 1 cap, Route: PO, Drug Form: CAP, Dosing Weight 80, kg, QPM, Start date: 5 17:00:00, Duration: 30 day, Stop date: 01/29/15 17:00:00 Notes: (Same As: Librax) Start Date: 12/31/14 Stop Date: 01/07/15 Status: Discontinued clindamycin 300 mg, 50 mL, Route: IVPB, Drug form: INJ, ABXQ8H, Dosing Weight 83.636, kg, St art date: 12/31/14 17:00:00, Duration: 30 day, Stop date: 01/30/15 9:00:00 Start Date: 12/31/14 Stop Date: 01/07/15 Status: Discontinued clindamycin 300 mg oral capsule 300 mg=1 cap, PO, Q6H, X 10 day, # 40 cap, 0 Refill(s) Start Date: 01/07/15 Stop Date: 01/17/15 Status: Ordered d50 syringe 12.5 gm, 25 mL, Route: IVP, Drug Form: INJ, Dosing Weight 83.636, kg, ONCE, Star t date: 01/02/15 23:01:00, Stop date: 01/02/15 23:01:00 Start Date: 01/02/15 Stop Date: 01/02/15 Status: Completed Dexilant 60 mg, Route: PO, Drug form: DRC, QPM, Dosing Weight 80, kg, Start date: 17:00:00, Duration: 30 day, Stop date: 01/29/15 17:00:00 Start Date: 12/31/14 Stop Date: 12/30/14 Status: Deleted Dexilant 60 mg oral delayed release capsule 60 mg=1 cap, PO, QPM, 0 Refill(s) Start Date: 12/30/14 Stop Date: 01/07/15 Status: Discontinued dextromethorphan-guaiFENesin 30 mg-600 mg oral tablet, extended release 1 tab, PO, BID, 0 Refill(s) Start Date: 01/07/15 Status: Ordered Dextrose 50% Syringe 12.5 gm, 25 mL, Route: IVP, Drug Form: INJ, Dosing Weight 83.636, kg, PRN, PRN B lood Glucose Results, Start date: 01/03/15 0:15:00, Duration: 30 day, Stop date: 02/02/15 0:14:00 Start Date: 01/03/15 Stop Date: 01/07/15 Status: Discontinued Dextrose 50% Syringe 25 gm, 50 mL, Route: IVP, Drug Form: INJ, Dosing Weight 83.636, kg, PRN, PRN Blo od Glucose Results, Start date: 01/03/15 0:15:00, Duration: 30 day, Stop date: 0 02/02/15 0:14:00 Start Date: 01/03/15 Stop Date: 01/07/15 Status: Discontinued donepezil 10 mg, 2 tab, Route: PO, Drug form: TAB, Daily, Dosing Weight 80, kg, Start date : 12/31/14 9:00:00, Duration: 30 day, Stop date: 01/29/15 9:00:00 Notes: (Same as: Aricept) Start Date: 12/31/14 Stop Date: 01/07/15 Status: Discontinued donepezil 10 mg oral tablet 10 mg, PO, Daily, # 30 tab, 0 Refill(s) Start Date: 12/30/14 Status: Ordered Dulcolax Laxative 10 mg, 1 supp, Route: NH, Drug form: SUPP, ONCE, Dosing Weight 83.636, kg, PRN a s needed for constipation, Start date: 01/04/15 17:12:00 Notes: (Same As: Dulcolax, Bisco-Lax) Start Date: 01/04/15 Stop Date: 01/07/15 Status: Discontinued DuoNeb inhalation solution 3 mL, INHALATION, PRN, PRN Wheezing, # 90 mL, 0 Refill(s) Start Date: 01/07/15 Stop Date: 02/06/15 Status: Ordered DuoNeb inhalation solution 3 ml, Route: INHALATION, Drug Form: SOLN, Dosing Weight 83.636, kg, PRN, PRN Res piratory Protocol, Start date: 01/06/15 9:42:00, Duration: 30 day, Stop date: 9:41:00 Notes: (Same as: Duoneb) Start Date: 01/06/15 Stop Date: 01/07/15 Status: Discontinued Effexor XR 150 mg, 1 cap, Route: PO, Drug form: ERCAP, Bedtime, Dosing Weight 80, kg, Start date: 12/30/14 22:33:00, Duration: 30 day, Stop date: 01/29/15 21:00:00 Notes: Do not open, crush, or chew. (Same As: Effexor XR) Start Date: 12/30/14 Stop Date: 01/07/15 Status: Discontinued Effexor XR 150 mg oral capsule, extended release 150 mg=1 cap, PO, Bedtime, # 90 cap, 0 Refill(s) Start Date: 12/30/14 Status: Ordered ferrous sulfate 325 mg, 1 tab, Route: PO, Drug form: ECTAB, TID, Dosing Weight 83.636, kg, Start date: 01/03/15 9:00:00, Duration: 30 day, Stop date: 02/01/15 17:00:00 Notes: Give with food. "Do Not Crush" Start Date: 01/03/15 Stop Date: 01/07/15 Status: Discontinued ferrous sulfate 325 mg oral enteric coated tablet 325 mg=1 tab, PO, TID, 0 Refill(s) Start Date: 01/07/15 Status: Ordered Fleet Enema 133 mL, Route: NH, Drug Form: SOLN, Dosing Weight 83.636, kg, ONCE, Start date: 01/05/15 6:52:00, Stop date: 01/05/15 6:52:00, For Constipation > 12 years, Pediatric Dosing Special Instructions: For Constipation > 12 years, Pediatric Dosing Start Date: 01/05/15 Stop Date: 01/05/15 Status: Deleted gentamicin ophthalmic 0.3% solution 2 drp, OPTH, QID, instill to affected eye, X 5 day, # 5 ml, 0 Refill(s) Special Instructions: instill to affected eye Start Date: 01/07/15 Stop Date: 01/12/15 Status: Ordered glucagon 1 mg, Route: IM, Drug form: PDR/INJ, PRN, Dosing Weight 83.636, kg, PRN Blood Gl ucose Results, Start date: 01/03/15 0:15:00, Duration: 30 day, Stop date: 0:14:00 Start Date: 01/03/15 Stop Date: 01/07/15 Status: Discontinued GoLYTELY 4,000 ml, Route: PO, Drug Form: PDR/REC, Dosing Weight 83.636, kg, ONCE, Start d ate: 01/04/15 17:12:00, Duration: 1 doses or times, Stop date: 01/04/15 17:12:00 Notes: (polyethylene glycol electrolyte solution 4 Liter bottle) (Same as: Gol ytely, Colyte) Start Date: 01/04/15 Stop Date: 01/04/15 Status: Completed Humalog Mix 75/25 25 unit, Route: SUB-Q, Drug form: SUSP, BID-Before Meals, Dosing Weight 80, kg, Start date: 12/31/14 7:30:00, Duration: 30 day, Stop date: 01/29/15 16:30:00 Start Date: 12/31/14 Stop Date: 12/30/14 Status: Deleted hydrochlorothiazide 25 mg oral tablet 12.5 mg=0.5 tab, PO, Daily, # 45 tab, 0 Refill(s) Start Date: 01/07/15 Stop Date: 04/07/15 Status: Ordered hydrochlorothiazide 25 mg oral tablet 12.5 mg, 0.5 tab, Route: PO, Drug form: TAB, Daily, Start date: 12/31/14 9:00:00 , Duration: 30 day, Stop date: 01/29/15 9:00:00 Notes: (Same as: Hydrodiuril) With food. Start Date: 12/31/14 Stop Date: 01/07/15 Status: Discontinued hydrochlorothiazide-lisinopril 12.5 mg-20 mg oral tablet 1 tab, PO, Daily, # 30 tab, 0 Refill(s) Start Date: 12/30/14 Status: Ordered hydrochlorothiazide-lisinopril 12.5 mg-20 mg oral tablet 1 tab, Route: PO, Drug Form: TAB, Dosing Weight 80, kg, Daily, Start date: 12/31 9:00:00, Duration: 30 day, Stop date: 01/29/15 9:00:00 Start Date: 12/31/14 Stop Date: 12/30/14 Status: Deleted insulin aspart 4 unit, 0.04 mL, Route: SUB-Q, Drug form: SOLN, TID-Before Meals, Dosing Weight 83.636, kg, PRN Blood Glucose Results, Start date: 01/03/15 0:15:00, Duration: 3 0 day, Stop date: 02/02/15 0:14:00 Notes: Roll in palms of hands gently; Do not shake vigorously. (Same as: NovoLO G)"single patient use only" Stable for 28 days at room temperature.Expires in _ ____ days from Date Start Date: 01/03/15 Stop Date: 01/07/15 Status: Discontinued insulin aspart 5 unit, 0.05 mL, Route: SUB-Q, Drug form: SOLN, TID-Before Meals, Dosing Weight 83.636, kg, PRN Blood Glucose Results, Start date: 01/03/15 0:15:00, Duration: 3 0 day, Stop date: 02/02/15 0:14:00 Notes: Roll in palms of hands gently; Do not shake vigorously. (Same as: NovoLO G)"single patient use only" Stable for 28 days at room temperature.Expires in _ ____ days from Date Start Date: 01/03/15 Stop Date: 01/07/15 Status: Discontinued insulin aspart 2 unit, 0.02 mL, Route: SUB-Q, Drug form: SOLN, TID-Before Meals, Dosing Weight 83.636, kg, PRN Blood Glucose Results, Start date: 01/03/15 0:15:00, Duration: 3 0 day, Stop date: 02/02/15 0:14:00 Notes: Roll in palms of hands gently; Do not shake vigorously. (Same as: NovoLO G)"single patient use only" Stable for 28 days at room temperature.Expires in _ ____ days from Date Start Date: 01/03/15 Stop Date: 01/07/15 Status: Discontinued insulin aspart 3 unit, 0.03 mL, Route: SUB-Q, Drug form: SOLN, TID-Before Meals, Dosing Weight 83.636, kg, PRN Blood Glucose Results, Start date: 01/03/15 0:15:00, Duration: 3 0 day, Stop date: 02/02/15 0:14:00 Notes: Roll in palms of hands gently; Do not shake vigorously. (Same as: NovoLO G)"single patient use only" Stable for 28 days at room temperature.Expires in _ ____ days from Date Start Date: 01/03/15 Stop Date: 01/07/15 Status: Discontinued insulin aspart 1 unit, 0.01 mL, Route: SUB-Q, Drug form: SOLN, TID-Before Meals, Dosing Weight 83.636, kg, PRN Blood Glucose Results, Start date: 01/03/15 0:15:00, Duration: 3 0 day, Stop date: 02/02/15 0:14:00 Notes: Roll in palms of hands gently; Do not shake vigorously. (Same as: NovoLO G)"single patient use only" Stable for 28 days at room temperature.Expires in _ ____ days from Date Start Date: 01/03/15 Stop Date: 01/07/15 Status: Discontinued insulin aspart 1 unit, SUB-Q, TID-Before Meals, PRN Blood Glucose Results, 0 Refill(s) Start Date: 01/07/15 Status: Ordered isosorbide mononitrate 30 mg, 1 tab, Route: PO, Drug form: ERTAB, Bedtime, Dosing Weight 80, kg, Start date: 12/31/14 21:00:00, Duration: 30 day, Stop date: 01/29/15 21:00:00 Notes: (Same as:Imdur)"Do Not Crush" Take on empty stomach/ full glass of water . Do not crush Start Date: 12/31/14 Stop Date: 01/01/15 Status: Discontinued levofloxacin 500 mg oral tablet 500 mg=1 tab, PO, Daily, # 10 tab, 0 Refill(s) Start Date: 12/24/14 Stop Date: 01/03/15 Status: Ordered levothyroxine 150 microgram, 1 tab, Route: PO, Drug form: TAB, Q630AM, Dosing Weight 80, kg, S tart date: 12/31/14 6:30:00, Duration: 30 day, Stop date: 01/29/15 6:30:00 Notes: Take 1 hour before or 2 hours after meal; Enteral feeds may interefere wi th the absorption of this medication. (Same as: Levothroid) Start Date: 12/31/14 Stop Date: 01/07/15 Status: Discontinued levothyroxine 150 mcg (0.15 mg) oral tablet 150 microgram=1 tab, PO, Q630AM, # 60 tab, 0 Refill(s) Start Date: 12/30/14 Status: Ordered lisinopril 20 mg oral tablet 20 mg=1 tab, PO, Daily, # 90 tab, 0 Refill(s) Start Date: 01/07/15 Stop Date: 04/07/15 Status: Ordered magnesium citrate 300 ml, Route: PO, Drug Form: LIQ, Dosing Weight 83.636, kg, ONCE, Start date: 0 01/05/15 6:50:00, Stop date: 01/05/15 6:50:00 Notes: (Same as: Citrate of Magnesia) Start Date: 01/05/15 Stop Date: 01/05/15 Status: Completed magnesium citrate 150 ml, Route: PO, Drug Form: LIQ, Dosing Weight 83.636, kg, ONCE, Start date: 0 01/05/15 3:00:00, Stop date: 01/05/15 3:00:00 Notes: (Same as: Citrate of Magnesia) Start Date: 01/05/15 Stop Date: 01/05/15 Status: Completed metoprolol 10 mg/ml cmpd oral suspension 12.5 mg=0.5 tab, PO, Q12H, # 90 tab, 0 Refill(s) Start Date: 01/07/15 Stop Date: 04/07/15 Status: Ordered metoprolol tartrate 12.5 mg, 0.5 tab, Route: PO, Drug form: TAB, Q12H, Dosing Weight 80, kg, Start d ate: 12/30/14 21:00:00, Duration: 30 day, Stop date: 01/29/15 9:00:00 Notes: (Same as: Lopressor) Start Date: 12/30/14 Stop Date: 01/07/15 Status: Discontinued MiraLax 17 gm, 1 pkt, Route: PO, Drug form: PWDR, BID, Dosing Weight 83.636, kg, Start d ate: 01/07/15 9:00:00, Duration: 30 day, Stop date: 02/05/15 17:00:00 Notes: Dissolve in 8 oz of water or juice.(Same as: Miralax) Start Date: 01/07/15 Stop Date: 01/07/15 Status: Discontinued montelukast 10 mg, 1 tab, Route: PO, Drug form: TAB, Bedtime, Dosing Weight 80, kg, Start da te: 12/31/14 21:00:00, Duration: 30 day, Stop date: 01/29/15 21:00:00 Notes: (Same as:Singulair) Start Date: 12/31/14 Stop Date: 01/07/15 Status: Discontinued montelukast 10 mg oral tablet 10 mg=1 tab, PO, Bedtime, # 30 tab, 0 Refill(s) Start Date: 12/30/14 Status: Ordered Mucinex DM Max Strength 1 tab, Route: PO, Drug Form: ERTAB, Dosing Weight 83.636, kg, BID, Start date: 0 01/02/15 17:00:00, Duration: 30 day, Stop date: 02/01/15 9:00:00 Notes: (Same as: Guaifenex DM)"Do Not Crush" Start Date: 01/02/15 Stop Date: 01/07/15 Status: Discontinued naproxen 500 mg oral tablet 500 mg=1 tab, PO, Q12H, PRN Other -See Comment, # 60 tab, 0 Refill(s) Start Date: 12/30/14 Status: Ordered nitroglycerin 0.4 mg sublingual tablet 0.4 mg=1 tab, SL, Q5Min, PRN Chest Pain, # 100 tab, 0 Refill(s) Start Date: 01/07/15 Stop Date: 02/06/15 Status: Ordered nitroglycerin 0.4 mg sublingual tablet 0.4 mg, 1 tab, Route: SL, Drug form: TAB, Q5Min, PRN Chest Pain, Start date: 17:20:00, Duration: 30 day, Stop date: 01/29/15 17:19:00 Notes: (Same as:Nitroquick, Nitrostat)"Do Not Crush" Sublingual tablet Start Date: 12/30/14 Stop Date: 01/07/15 Status: Discontinued NovoLOG Mix 70/30 FlexPen 0 Refill(s) Start Date: 01/07/15 Status: Ordered NovoLOG Mix 70/30 FlexPen 25 unit, 0.25 mL, Route: SUB-Q, Drug form: INJ, BID-Before Meals, Start date: 7:30:00, Duration: 30 day, Stop date: 01/29/15 16:30:00 Notes: Roll in palms of hands gently; Do not shake vigorously. (Same as: NovoLO G Mix)"single patient use only" Stable for 14 days at room temperatureExpires i n days from Date Start Date: 12/31/14 Stop Date: 01/07/15 Status: Discontinued NS (Bolus) IV 500 mL, 500 ml/hr, Infuse Over: 1 hr, Route: IV, 500, Drug form: INJ, ONCE, Prio rity: STAT, Dosing Weight 80 kg, Start date: 12/30/14 0:01:00, Duration: 1 doses or times, Stop date: 12/30/14 0:01:00 Start Date: 12/30/14 Stop Date: 12/30/14 Status: Completed ondansetron 4 mg, 2 mL, Route: IVP, Drug form: INJ, Q8H, Dosing Weight 80, kg, PRN Nausea & Vomiting, Start date: 12/30/14 8:33:00, Duration: 30 day, Stop date: 01/29/15 8 :32:00 Notes: (Same as: Bettina) MEDICATION WASTE Product Size: 4 mgProduct Was jeffrey: ___ mg Start Date: 12/30/14 Stop Date: 01/07/15 Status: Discontinued pantoprazole 40 mg oral enteric coated tablet 40 mg=1 tab, PO, Before Dinner, 0 Refill(s) Start Date: 01/07/15 Status: Ordered polyethylene glycol 3350 oral powder for reconstitution PO, BID, 0 Refill(s) Start Date: 01/07/15 Status: Ordered Prinivil 20 mg, 1 tab, Route: PO, Drug form: TAB, Daily, Start date: 12/31/14 9:00:00, Du ration: 30 day, Stop date: 01/29/15 9:00:00 Notes: (Same as: Prinivil, Zestril) Start Date: 12/31/14 Stop Date: 01/07/15 Status: Discontinued Protonix 40 mg, 1 tab, Route: PO, Drug form: ECTAB, Before Dinner, Start date: 12/31/14 1 6:30:00, Duration: 30 day, Stop date: 01/29/15 16:30:00 Notes: Tablet should not be chewed or crushed.(Same as: Protonix) Start Date: 12/31/14 Stop Date: 01/07/15 Status: Discontinued Sodium Chloride 0.9% (titrate) 100 mL 100 mL, Rate: template storage clerk for use with blood product administration, Dosing Weight 8 0, kg, Route: IV, Total Volume: 100, Start Date: 12/30/14 5:05:00, Duration: 30 day, Stop date: 01/29/15 5:04:00, Replace Every: 24 hr Start Date: 12/30/14 Stop Date: 12/30/14 Status: Deleted Sodium Chloride 0.9% (titrate) 250 mL 250 mL, Rate: template storage clerk for use with blood product administration, Dosing Weight 8 0, kg, Route: IV, Total Volume: 250, Start Date: 12/29/14 23:59:00, Duration: 1 day, Stop date: 12/30/14 23:58:00, Replace Every: 24 hr Start Date: 12/29/14 Stop Date: 12/30/14 Status: Completed Sodium Chloride 0.9% IV 500 mL 500 mL, Rate: 25 ml/hr, Infuse over: 20 hr, Route: IV, Dosing Weight 83.636 kg, Total Volume: 500, Start date: 01/06/15 15:58:00, Duration: 1 day, Stop date: 15:57:00 Start Date: 01/06/15 Stop Date: 01/06/15 Status: Discontinued TamiFLU 30 mg, 5 mL, Route: PO, Drug form: PDR/REC, [id number], Dosing Weight 83.636, kg, C rCl > 60 ml/hr, Start date: 12/31/14 18:00:00, Duration: 5 day, Stop date: 01/05/15 6:00:00 Notes: (Same as: Tamiflu) Start Date: 12/31/14 Stop Date: 01/05/15 Status: Completed tramadol 50 mg oral tablet 50 mg, 1 tab, Route: PO, Drug form: TAB, Q6H, Dosing Weight 80, kg, PRN Pain Sco re 4-6, Start date: 12/30/14 21:53:00, Duration: 30 day, Stop date: 01/29/15 21: 52:00 Notes: Not to exceed 400mg/day. (Same As: Ultram) Start Date: 12/30/14 Stop Date: 01/07/15 Status: Discontinued tramadol 50 mg oral tablet 50 mg=1 tab, PO, Q6H, PRN Pain, # 40 tab, 0 Refill(s) Start Date: 12/30/14 Stop Date: 01/09/15 Status: Ordered Vasotec 1.25 mg, 1 mL, Route: IV, Drug form: INJ, ONCE, Dosing Weight 80, kg, Start date : 12/30/14 0:10:00, Stop date: 12/30/14 0:10:00 Notes: (Same as: Vasotec-IV) Start Date: 12/30/14 Stop Date: 12/30/14 Status: Completed Results BLOOD BANK RESULTS 1 2 3 Most recent to oldest [Reference Range]: A POS *Unknown* (12/30/14 1:04 AM) ABO/Rh Negative (12/30/14 1:04 AM) Antibody Scrn Product available (12/30/14 5:05 AM) RBC product ELECTROLYTES 1 2 3 Most recent to oldest [Reference Range]: 139 mEq/L (01/07/15 5:36 AM) 138 mEq/L (01/05/15 4:23 AM) 137 mEq/L (01/04/15 4:53 AM) Sodium Lvl [135-145 mEq/L] 4.2 mEq/L (01/07/15 5:36 AM) 4.1 mEq/L (01/05/15 4:23 AM) 4.3 mEq/L (01/04/15 4:53 AM) Potassium Lvl [3.5-5.1 mEq/L] 101 mEq/L (01/07/15 5:36 AM) 101 mEq/L (01/05/15 4:23 AM) 101 mEq/L (01/04/15 4:53 AM) Chloride Lvl [95-109 mEq/L] 30 mEq/L (01/07/15 5:36 AM) 28 mEq/L (01/05/15 4:23 AM) 27 mEq/L (01/04/15 4:53 AM) CO2 [24-32 mEq/L] 12.2 mEq/L (01/07/15 5:36 AM) 13.1 mEq/L (01/05/15 4:23 AM) 13.3 mEq/L (01/04/15 4:53 AM) AGAP [10.0-20.0 mEq/L] CHEM PANEL 1 2 3 Most recent to oldest [Reference Range]: 1.1 mg/dL (01/07/15 5:36 AM) 1.2 mg/dL (01/05/15 4:23 AM) 1.3 mg/dL (01/04/15 4:53 AM) Creatinine Lvl [0.5-1.4 mg/dL] 48 mL/min/1.73m2 1 *NA* (01/07/15 5:36 AM) 43 mL/min/1.73m2 2 *NA* (01/05/15 4:23 AM) 39 mL/min/1.73m2 3 *NA* (01/04/15 4:53 AM) eGFR 14 mg/dL (01/07/15 5:36 AM) 22 mg/dL (01/05/15 4:23 AM) 20 mg/dL (01/04/15 4:53 AM) BUN [7-22 mg/dL] 18 (01/05/15 4:23 AM) 14 (12/30/14 1:04 AM) B/C Ratio [6-25] 128 mg/dL 4 *HI* (01/07/15 5:36 AM) 127 mg/dL 5 *HI* (01/05/15 4:23 AM) 288 mg/dL 6 *HI* (01/04/15 4:53 AM) Glucose Lvl [70-99 mg/dL] 5.9 g/dL *LOW* (01/05/15 4:23 AM) 7.1 g/dL (12/30/14 1:04 AM) Total Protein [6.4-8.4 g/dL] 3.3 g/dL *LOW* (01/05/15 4:23 AM) 3.7 g/dL (12/30/14 1:04 AM) Albumin Lvl [3.5-5.0 g/dL] 2.6 g/dL (01/05/15 4:23 AM) 3.4 g/dL (12/30/14 1:04 AM) Globulin [2.0-4.0 g/dL] 1.3 (01/05/15 4:23 AM) 1.1 (12/30/14 1:04 AM) A/G Ratio [0.7-1.6] 8.6 mg/dL (01/07/15 5:36 AM) 8.5 mg/dL (01/05/15 4:23 AM) 8.3 mg/dL *LOW* (01/04/15 4:53 AM) Calcium Lvl [8.5-10.5 mg/dL] 2.2 mg/dL (12/30/14 1:04 AM) Magnesium Lvl [1.8-2.4 mg/dL] 15 unit/L (01/05/15 4:23 AM) 25 unit/L (12/30/14 1:04 AM) ALT [0-65 unit/L] 10 unit/L (01/05/15 4:23 AM) 25 unit/L (12/30/14 1:04 AM) AST [0-37 unit/L] 89 unit/L (01/05/15 4:23 AM) 97 unit/L (12/30/14 1:04 AM) Alk Phos [39-136 unit/L] 0.3 mg/dL (01/05/15 4:23 AM) 0.3 mg/dL (12/30/14 1:04 AM) Bili Total [0.2-1.3 mg/dL] 1Result Comment: The eGFR is calculated using [...] values reflect the clinical guidelines of the [place] [employer]. 5Interpretive Data: Adult reference range values reflect the clinical guidelines of the [place] [employer]. 6Interpretive Data: Adult reference range values reflect the clinical guidelines of the [place] [employer]. ANEMIA STUDY 1 2 3 Most recent to oldest [Reference Range]: 40 ug/dl (01/02/15 4:13 AM) Iron [30-160 ug/dl] 14 ng/mL (01/02/15 4:13 AM) Ferritin Lvl [5-204 ng/mL] 10 % *LOW* (01/02/15 4:13 AM) % Satur Fe [12-57 %] 344 ug/dl (01/02/15 4:13 AM) UIBC [110-370 ug/dl] 473 pg/mL (01/02/15 4:13 AM) Vitamin B12 Lvl [254-1320 pg/mL] 6.2 ng/mL (01/02/15 4:13 AM) Folate Lvl [>=3.0 ng/mL] 384 ug/dl (01/02/15 4:13 AM) TIBC [228-428 ug/dl] THYROID PANEL 1 2 3 Most recent to oldest [Reference Range]: 0.900 uIU/mL (01/02/15 4:13 AM) TSH [0.360-3.740 uIU/mL] URINE AND STOOL 1 2 3 Most recent to oldest [Reference Range]: Negative (12/30/14 5:12 AM) Occult Bld Stl [Negative] IMMUNOLOGY 1 2 3 Most recent to oldest [Reference Range]: Negative *NA* (01/02/15 4:13 AM) HIV 1/2 Ab [Negative] 62.1 REL % (01/02/15 4:13 AM) Albumin % [55.8-66.1 REL %] 5.3 REL % *HI* (01/02/15 4:13 AM) Alpha 1 % [2.8-4.9 REL %] 15.6 REL % *HI* (01/02/15 4:13 AM) Alpha 2 % [7.0-11.9 REL %] 10.9 REL % (01/02/15 4:13 AM) Beta % [7.8-13.7 REL %] 6.1 REL % *LOW* (01/02/15 4:13 AM) Gamma % [11.1-18.7 REL %] 4.41 g/dL (01/02/15 4:13 AM) Albumin (SPE) [3.57-5.55 g/dL] 0.38 g/dL (01/02/15 4:13 AM) Alpha 1 Glob [0.18-0.41 g/dL] 1.11 g/dL *HI* (01/02/15 4:13 AM) Alpha 2 Glob [0.45-1.00 g/dL] 0.77 g/dL (01/02/15 4:13 AM) Beta Glob [0.50-1.15 g/dL] 0.43 g/dL *LOW* (01/02/15 4:13 AM) Gamma Glob [0.71-1.57 g/dL] 7.1 g/dL (01/02/15 4:13 AM) Tot Prot (SPE) [6.4-8.4 g/dL] Total protein and serum albumin levels are within reference ranges. The gamma globulins are markedly decreased. All other globulin fractions are present in a normal distribution, with minor nonspecific changes. No monoclonal proteins are identified; however, in view of the significant decrease in polyclonal gamma globulins, an occult monoclonal protein cannot be excluded. Immunofixation electrophoresis of serum and urine is recommended for further evaluation. Interpretation performed at [facility]. *NA* (01/02/15 4:13 AM) SPE Interp Very faint, diffusely immunoreactive bands are noted in the IgG, IgA, kappa and lambda lanes. No monoclonal bands are identified. Interpretation performed at [facility]. *NA* (01/02/15 4:13 AM) SARAH Ser Pattern Serum immunofixation electrophoresis reveals a polyclonal pattern of immunoglobulins with a marked decrease in quantity. No monoclonal proteins are identified. Interpretation performed at [facility]. *NA* (01/02/15 4:13 AM) SARAH Ser Interp Negative *NA* (01/02/15 4:13 AM) Hep Bs Ag [Negative] <3.1 mIU/mL 7 (01/02/15 4:13 AM) Hep Bs Ab [<=7.4 mIU/mL] Negative *NA* (01/02/15 4:13 AM) Hep B Core Ab [Negative] Negative *NA* (01/02/15 4:13 AM) Hep C Ab 7Interpretive Data: <=7.4 mIU/mL--------Negative for Anti-HBs. Not immune to HBV infection. 7.5-12.4 mIU/mL--Borderline for Anti-HBs and immune status should be further assessed by considering other factors such as clinical status follow-up testing, associated risk factors, and the use of additional diagnostic information. >12.4 mIU/mL-------Positive for Anti-HBs. Immune to HBV infection HEMATOLOGY 1 2 3 Most recent to oldest [Reference Range]: 5.1 K/CMM (01/07/15 5:36 AM) 6.8 K/CMM (01/05/15 4:23 AM) 5.0 K/CMM (01/04/15 4:53 AM) WBC [3.7-10.4 K/CMM] 4.24 M/CMM (01/07/15 5:36 AM) 4.09 M/CMM *LOW* (01/05/15 4:23 AM) 4.39 M/CMM (01/04/15 4:53 AM) RBC [4.20-5.40 M/CMM] 11.2 g/dL *LOW* (01/07/15 5:36 AM) 11.0 g/dL *LOW* (01/05/15 4:23 AM) 11.6 g/dL *LOW* (01/04/15 4:53 AM) Hgb [12.0-16.0 g/dL] 34.0 % *LOW* (01/07/15 5:36 AM) 33.0 % *LOW* (01/05/15 4:23 AM) 35.2 % *LOW* (01/04/15 4:53 AM) Hct [36.0-48.0 %] 80.1 fL (01/07/15 5:36 AM) 80.8 fL (01/05/15 4:23 AM) 80.2 fL (01/04/15 4:53 AM) MCV [80.0-98.0 fL] 26.3 pg *LOW* (01/07/15 5:36 AM) 27.0 pg (01/05/15 4:23 AM) 26.3 pg *LOW* (01/04/15 4:53 AM) MCH [27.0-31.0 pg] 32.8 g/dL (01/07/15 5:36 AM) 33.5 g/dL (01/05/15 4:23 AM) 32.8 g/dL (01/04/15 4:53 AM) MCHC [32.0-36.0 g/dL] 17.4 % *HI* (01/07/15 5:36 AM) 17.6 % *HI* (01/05/15 4:23 AM) 17.0 % *HI* (01/04/15 4:53 AM) RDW [11.5-14.5 %] 190 K/CMM (01/07/15 5:36 AM) 187 K/CMM (01/05/15 4:23 AM) 190 K/CMM (01/04/15 4:53 AM) Platelet [133-450 K/CMM] 7.2 fL *LOW* (01/07/15 5:36 AM) 7.4 fL (01/05/15 4:23 AM) 7.3 fL *LOW* (01/04/15 4:53 AM) MPV [7.4-10.4 fL] 62.6 % (01/05/15 4:23 AM) 78.2 % *HI* (01/04/15 4:53 AM) 52.0 % (01/03/15 5:33 AM) Segs [45.0-75.0 %] 30.5 % (01/05/15 4:23 AM) 19.3 % *LOW* (01/04/15 4:53 AM) 35.8 % (01/03/15 5:33 AM) Lymphocytes [20.0-40.0 %] 6.1 % (01/05/15 4:23 AM) 2.4 % (01/04/15 4:53 AM) 10.3 % (01/03/15 5:33 AM) Monocytes [2.0-12.0 %] 0.3 % (01/05/15 4:23 AM) 1.1 % (01/03/15 5:33 AM) 1.4 % (01/02/15 4:13 AM) Eosinophils [0.0-4.0 %] 0.5 % (01/05/15 4:23 AM) 0.1 % (01/04/15 4:53 AM) 0.8 % (01/03/15 5:33 AM) Basophils [0.0-1.0 %] 4.3 K/CMM (01/05/15 4:23 AM) 3.9 K/CMM (01/04/15 4:53 AM) 2.3 K/CMM (01/03/15 5:33 AM) Segs-Bands # [1.5-8.1 K/CMM] 2.1 K/CMM (01/05/15 4:23 AM) 1.0 K/CMM (01/04/15 4:53 AM) 1.6 K/CMM (01/03/15 5:33 AM) Lymphocytes # [1.0-5.5 K/CMM] 0.4 K/CMM (01/05/15 4:23 AM) 0.1 K/CMM (01/04/15 4:53 AM) 0.5 K/CMM (01/03/15 5:33 AM) Monocytes # [0.0-0.8 K/CMM] 0.1 K/CMM (01/02/15 4:13 AM) Eosinophils # [0.0-0.5 K/CMM] 1+ *ABN* (12/30/14 1:04 AM) Microcyte [None Seen] 13.0 seconds (12/30/14 1:04 AM) PT [12.0-14.7 seconds] 0.98 8 (12/30/14 1:04 AM) INR [0.85-1.17] 27.2 seconds 9 (12/30/14 1:04 AM) PTT [22.9-35.8 seconds] 8Interpretive Data: RECOMMENDED RANGES FOR PROTIME INR: 2.0-3.0 for most medical and surgical thromboembolic states. 2.5-3.5 for artificial heart valves and recurrent embolism. INR SHOULD BE USED ONLY FOR PATIENTS ON STABLE ANTICOAGULANT THERAPY. 9Interpretive Data: Heparin Therapeutic Range: 57 - 92 Seconds Immunizations Vaccine Date Refusal Reason influenza virus vaccine, inactivated 06/30/14 pneumococcal 13-valent vaccine1 03/11/14 1Admin Note: pt got it at [facility]=apr 2012 Procedures Procedure Date Related Diagnosis Body [...] Plan Extracted from: Title: Clinical Document Author: Amos Lux MD Date: 01/07/15 Progress Note - Daily [facility] Completed: Wednesday, JANUARY 07, 2015, 17:14 by Amos Lux MD RM: 210 - 1P, SE [id number], WILFREDOVINOD [id number] (: 1935) F Attending: Rowena Kay MDPhone: Service: Internal Medicine Reason for Admission: SYMPOMATIC ANEMIA, INTERMITTENT TRIGEMINI Working DRG: Circulatory disorders except AMI, w card cath w/o SENIOR CARE Code status: None Specified=FULL CODECurrent diet: Isolation: None Documented Allergies: trimethoprim, cefuroxime, cephalexin, sulfa drugs, Iodine [facility]ENIOR LIVING, penicillin, ciprofloxacin SUBJECTIVE No new issues OBJECTIVE 24hr Labs 01/07 0536 Glucose Jqh311 H BUN14 Creatinine Lvl1.1 Sodium Saz935 Potassium Lvl4.2 Chloride Kmp238 CO230 AGAP12.2 Calcium Lvl8.6 eGFR48 WBC5.1 RBC4.24 Hgb11.2 L Hct34.0 L MCV80.1 MCH26.3 L MCHC32.8 RDW17.4 H Lgjvdmxw586 MPV7.2 L 01/06 2226 Glucose XSP481 H 01/06 1830 Glucose DNF518 H Lang still necessary (Yes/No): Line still necessary (Yes/No): VitalsTmp(F)BhbmgLWJLQjT6ZTO3 01/07 08:19 1698 21% 01/07 08:0098.320932/6616------ 01/07 01:2898.4---134/777911--- 01/06 22:24 1893 21% 01/06 21:09-------142/76-------- 24 Hr Tmax: 98.9F (37.17c) at 01/06 19:59Vital Signs are the last 5 in the past 48 hours. DateWt(kg)Wt(lb)Ht(cm)Ht(in)Method 12/31 83.64 184.00Measured 12/29 (initial) 80.00 176.00Estimated 49.86 59.00Stated I&ORecordInOutBal 12/2223hr Tot 0 0 0 12/2123hr Tot 300 0 300 Medications (0) Active Scheduled Meds: None Unscheduled Meds: None PRN Meds: None One Time Meds: None Continuous Infusions: None AEXAM HEENT: EOM intact, No scleral icterus NECK: Supple CHEST: CTA B/L, No retractions, CVS: S1 and S2 WNL ABDOMEN: soft, BS +, no rebound, No guarding, No tenderness EXT: No edema, SKIN: No jaundice NEURO: AAO x 3, hard of hearing. 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 hemorrhoids PLAN: - Okay for anticouglation - miralax and Stool softenres - PPI - f/u bx
--- OUTSIDE RECORDS SUMMARY | 2018-08-13 18:26 | XMS REPORT | Summary of Care ---
Author Author [facility] Organization [facility] Address Unknown Phone Unavailable Encounter TREVON Frias(KIRSTIE) [id number] Date(s): 01/04/17 - 01/05/17 [facility] [address] [place] [address]- [phone] Discharge Disposition: Non-Emergent Attending Physician: Trenton Hightower MD Vital Signs Most recent to 1 oldest [Reference Range]: Height 149.86 cm (01/04/17 11:19 PM) Temperature Oral 98.3 DegF [96.4-99.1 DegF] (01/04/17 11:19 PM) Blood Pressure 175/55 mmHg [90-140/60-90 mmHg] *HI* (01/04/17 11:19 PM) Respiratory Rate 18 BRMIN [14-20 BRMIN] (01/04/17 11:19 PM) Peripheral Pulse 66 bpm Rate [60-100 bpm] (01/04/17 11:19 PM) Weight 72.727 kg (01/04/17 11:19 PM) Body Mass Index 32.38 m2 (01/04/17 11:19 PM) Problem List Condition Effective Dates Status Health Status Informant Alzheimer's Active disease(Confirmed) Anxiety(Confirmed) Active Left hip Active pain(Confirmed) Asthma(Confirmed) Active Benign Active hypertension(Confirm ed) Bypass(Confirmed) Resolved CAD - Coronary Active artery disease(Confirmed) Chronic Active anemia(Confirmed) Chronic kidney Active disease (CKD), stage III (moderate)(Confirmed ) COPD(Confirmed) Active Depression(Confirmed Active ) Diabetes mellitus Active type 2(Confirmed) 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) Poor Active dentition(Confirmed) Fibromyalgia(Confirm Active ed) History of - Active multiple allergies(Confirmed) Hyperlipidemia(Confi Active rmed) Hypothyroidism(Confi Active rmed) Kidney Active stone(Confirmed) right Knee Active replacement(Confirme d) Neuropathy(Confirmed Active ) OA - Active Osteoarthritis(Confi rmed) Obesity(Confirmed) Active Obstructive sleep Active apnea(Confirmed) Left leg Active pain(Confirmed) Parkinson Active disease(Confirmed) Psoriasis(Confirmed) Active Recurrent Active falls(Confirmed) Stomatitis(Confirmed Active ) Allergies, Adverse Reactions, Alerts Substance Reaction Severity Status cefuroxime Active ciprofloxacin Active erythromycin Active Iodine SHELTER Active penicillin Active sulfa drugs Active trimethoprim Active Medications No data available for this section Results No data available for this section Immunizations Given and Recorded Vaccine Date Status Refusal Reason influenza virus vaccine, inactivated 06/22/16 Given influenza virus vaccine, inactivated 06/30/14 Given pneumococcal 13-valent vaccine1 03/11/14 Given 1Admin Note: pt got it at [facility]=apr 2012 Procedures Procedure Date Related Diagnosis [...]
--- OUTSIDE RECORDS SUMMARY | 2018-08-13 18:26 | XMS REPORT | Summary of Care ---
Author Author [facility] Organization [facility] Address Unknown Phone Unavailable Encounter TREVON Frias(KIRSTIE) [id number] Date(s): 04/19/15 - 04/19/15 [facility] [address] [place] [address]- [phone] Discharge Disposition: Home Attending Physician: Braden Gaines MD Referring Physician: Braden Gaines MD Vital Signs Most recent to 1 oldest [Reference Range]: Height 149.86 cm (04/19/15 10:38 AM) Most recent to 1 oldest [Reference Range]: Temperature Oral 97.5 DegF [96.4-99.1 DegF] (04/19/15 10:38 AM) Most recent to 1 oldest [Reference Range]: Blood Pressure 129/50 mmHg [90-140/60-90 mmHg] (04/19/15 10:38 AM) Most recent to 1 oldest [Reference Range]: Respiratory Rate 16 BRMIN [14-20 BRMIN] (04/19/15 10:38 AM) Most recent to 1 oldest [Reference Range]: Peripheral Pulse 75 bpm Rate [60-100 bpm] (04/19/15 10:38 AM) Most recent to 1 oldest [Reference Range]: Weight 81.051 kg (04/19/15 10:38 AM) Most recent to 1 oldest [Reference Range]: Body Mass Index 36.09 m2 (04/19/15 10:38 AM) Problem List Condition Effective Dates Status Health Status Informant Anemia(Confirmed) 01/02/15 Resolved Anxiety(Confirmed) Resolved Asthma(Confirmed) Active Bypass(Confirmed) Resolved CAD - Coronary Active artery disease(Confirmed) COPD(Confirmed) Active Critical illness Active myopathy(Confirmed) Depression(Confirmed Active ) Diabetes Active mellitus(Confirmed) Fibromyalgia(Confirm Active ed) History of - Active multiple allergies(Confirmed) Hyperlipidemia(Confi Active rmed) Hypertension(Confirm Active ed) 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) MRSA(Confirmed)1, 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 Allergies, Adverse Reactions, Alerts Substance Reaction Severity Status cefuroxime Active cephalexin Active ciprofloxacin Active erythromycin Active Iodine ASSISTED Active penicillin Active sulfa drugs Active trimethoprim Active Medications hydrochlorothiazide 25 mg, PO, Daily, 0 Refill(s) Start Date: 04/19/15 Status: Ordered Lantus Solostar Pen 100 units/mL subcutaneous solution 20 unit, SUB-Q, Bedtime, # 1 pen(s), 3 Refill(s) Start Date: 04/19/15 Status: Ordered lisinopril 20 mg oral tablet 20 mg=1 tab, PO, Daily, # 30 tab, 0 Refill(s) Start Date: 04/19/15 Status: Ordered NovoLOG SUB-Q, TID-Before Meals, 15 u before a meal, 0 Refill(s) Special Instructions: 15 ubefore a meal Start Date: 04/19/15 Status: Ordered Results ANEMIA STUDY Most recent to 1 oldest [Reference Range]: Iron [30-160 ug/dl] 211 ug/dl *HI* (04/19/15 12:00 PM) Ferritin Lvl [5-204 40 ng/mL ng/mL] (04/19/15 12:00 PM) % Satur Fe [12-57 %] 53 % (04/19/15 12:00 PM) UIBC [110-370 ug/dl] 184 ug/dl (04/19/15 12:00 PM) Vitamin B12 Lvl 504 pg/mL [254-1320 pg/mL] (04/19/15 12:00 PM) Folate Lvl [>=3.0 10.5 ng/mL ng/mL] (04/19/15 12:00 PM) TIBC [228-428 ug/dl] 395 ug/dl (04/19/15 12:00 PM) HEMATOLOGY Most recent to 1 oldest [Reference Range]: WBC [3.7-10.4 K/CMM] 4.5 K/CMM (04/19/15 11:45 AM) RBC [4.20-5.40 3.71 M/CMM M/CMM] *LOW* (04/19/15 11:45 AM) Hgb [12.0-16.0 g/dL] 11.2 g/dL *LOW* (04/19/15 11:45 AM) Hct [36.0-48.0 %] 34.1 % *LOW* (04/19/15 11:45 AM) MCV [80.0-98.0 fL] 92.0 fL (04/19/15 11:45 AM) MCH [27.0-31.0 pg] 30.1 pg (04/19/15 11:45 AM) MCHC [32.0-36.0 32.7 g/dL g/dL] (04/19/15 11:45 AM) RDW [11.5-14.5 %] 13.9 % (04/19/15 11:45 AM) Platelet [133-450 151 K/CMM K/CMM] (04/19/15 11:45 AM) MPV [7.4-10.4 fL] 6.9 fL *LOW* (04/19/15 11:45 AM) Segs [45.0-75.0 %] 52.0 % (04/19/15 11:45 AM) Lymphocytes 36.1 % [20.0-40.0 %] (04/19/15 11:45 AM) Monocytes [2.0-12.0 10.3 % %] (04/19/15 11:45 AM) Eosinophils [0.0-4.0 0.9 % %] (04/19/15 11:45 AM) Basophils [0.0-1.0 0.7 % %] (04/19/15 11:45 AM) Segs-Bands # 2.3 K/CMM [1.5-8.1 K/CMM] (04/19/15 11:45 AM) Lymphocytes # 1.6 K/CMM [1.0-5.5 K/CMM] (04/19/15 11:45 AM) Monocytes # [0.0-0.8 0.5 K/CMM K/CMM] (04/19/15 11:45 AM) Polychrom [None Moderate Seen] *ABN* (04/19/15 11:45 AM) Hypochrom [None 1+ Seen] (04/19/15 11:45 AM) Toxic Gran [None Moderate Seen] *ABN* (04/19/15 11:45 AM) Rouleaux [None Seen] Present *ABN* (04/19/15 11:45 AM) Retic Auto [0.5-1.5 1.1 % %] (04/19/15 11:45 AM) Immunizations Vaccine Date Refusal Reason influenza virus vaccine, inactivated 06/30/14 pneumococcal 13-valent vaccine1 03/11/14 1Admin Note: pt got it at [facility]=apr 2012 Procedures Procedure Date Related Diagnosis [...]
--- OUTSIDE RECORDS SUMMARY | 2018-08-13 18:26 | XMS REPORT | Summary of Care ---
Author Author [facility] Organization [facility] Address Unknown Phone Unavailable Encounter TREVON Frias(KIRSTIE) [id number] Date(s): 05/01/15 - 05/01/15 [facility] [address] [place] [address]- Discharge Diagnosis: Chest wall contusion Discharge Diagnosis: Diabetes Discharge Diagnosis: Acute back pain Discharge Diagnosis: Neck pain Discharge Disposition: Home Attending Physician: Colin Santos MD Vital Signs 1 2 3 Most recent to oldest [Reference Range]: 149.86 cm (05/01/15 12:12 PM) Height 1 2 3 Most recent to oldest [Reference Range]: 98 DegF (05/01/15 6:01 PM) 98.2 DegF (05/01/15 12:12 PM) Temperature Oral [96.4-99.1 DegF] 1 2 3 Most recent to oldest [Reference Range]: 142/65 mmHg *HI* (05/01/15 6:01 PM) 130/65 mmHg (05/01/15 4:22 PM) 130/39 mmHg (05/01/15 2:55 PM) Blood Pressure [90-140/60-90 mmHg] 1 2 3 Most recent to oldest [Reference Range]: 18 BRMIN (05/01/15 6:01 PM) 18 BRMIN (05/01/15 4:22 PM) 16 BRMIN (05/01/15 2:55 PM) Respiratory Rate [14-20 BRMIN] 1 2 3 Most recent to oldest [Reference Range]: 81 bpm (05/01/15 6:01 PM) 85 bpm (05/01/15 4:22 PM) 71 bpm (05/01/15 2:55 PM) Peripheral Pulse Rate [60-100 bpm] 1 2 3 Most recent to oldest [Reference Range]: 78.636 kg (05/01/15 12:12 PM) Weight 1 2 3 Most recent to oldest [Reference Range]: 35.01 m2 (05/01/15 12:12 PM) Body Mass Index Problem List Condition [...] cephalexin Active ciprofloxacin Active erythromycin Active Iodine [facility] Active penicillin Active sulfa drugs Active trimethoprim Active Medications morphine Sulfate 2 mg, Route: IVP, Drug form: INJ, ONCE, Dosing Weight 78.636, kg, Priority: STAT , Start date: 05/01/15 15:26:00, Stop date: 05/01/15 15:26:00 Start Date: 05/01/15 Stop Date: 05/01/15 Status: Completed Kuna 5/325 oral tablet 1 tab, Route: PO, Drug Form: TAB, Dosing Weight 78.636, kg, ONCE, STAT, Start da te: 05/01/15 12:47:00, Stop date: 05/01/15 12:47:00 Notes: (Same as: Kuna 325/5) Do not exceed 4gm/day of acetaminophen. Start Date: 05/01/15 Stop Date: 05/01/15 Status: Completed NS (Bolus) IV 1,000 mL, 1,000 ml/hr, Infuse Over: 1 hr, Route: IV, ONCE, Priority: STAT, Dosin g Weight 78.636 kg, Start date: 05/01/15 15:24:00, Duration: 1 doses or times, S top date: 05/01/15 15:24:00 Start Date: 05/01/15 Stop Date: 05/01/15 Status: Completed Results ELECTROLYTES Most recent to 1 oldest [Reference Range]: Sodium Lvl [135-145 136 mEq/L mEq/L] (05/01/15 1:34 PM) Potassium Lvl 4.6 mEq/L [3.5-5.1 mEq/L] (05/01/15 1:34 PM) Chloride Lvl [95-109 103 mEq/L mEq/L] (05/01/15 1:34 PM) CO2 [24-32 mEq/L] 31 mEq/L (05/01/15 1:34 PM) AGAP [10.0-20.0 6.6 mEq/L mEq/L] *LOW* (05/01/15 1:34 PM) CHEM PANEL Most recent to 1 oldest [Reference Range]: Creatinine Lvl 1.9 mg/dL [0.5-1.4 mg/dL] *HI* (05/01/15 1:34 PM) eGFR 25 mL/min/1.73m2 1 *NA* (05/01/15 1:34 PM) BUN [7-22 mg/dL] 36 mg/dL *HI* (05/01/15 1:34 PM) Glucose Lvl [70-99 54 mg/dL mg/dL] *LOW* (05/01/15 1:34 PM) Calcium Lvl 9.1 mg/dL [8.5-10.5 mg/dL] (05/01/15 1:34 PM) Magnesium Lvl 2.2 mg/dL [1.8-2.4 mg/dL] (05/01/15 1:34 PM) 1Result Comment: The eGFR is calculated using [...] be mul tiplied by the estimated BMI. HEMATOLOGY Most recent to 1 oldest [Reference Range]: WBC [3.7-10.4 K/CMM] 2.9 K/CMM *LOW* (05/01/15 1:34 PM) RBC [4.20-5.40 3.46 M/CMM M/CMM] *LOW* (05/01/15 1:34 PM) Hgb [12.0-16.0 g/dL] 10.6 g/dL *LOW* (05/01/15 1:34 PM) Hct [36.0-48.0 %] 31.7 % *LOW* (05/01/15 1:34 PM) MCV [80.0-98.0 fL] 91.8 fL (05/01/15 1:34 PM) MCH [27.0-31.0 pg] 30.7 pg (05/01/15 1:34 PM) MCHC [32.0-36.0 33.5 g/dL g/dL] (05/01/15 1:34 PM) RDW [11.5-14.5 %] 13.1 % (05/01/15 1:34 PM) Platelet [133-450 143 K/CMM K/CMM] (05/01/15 1:34 PM) MPV [7.4-10.4 fL] 6.8 fL *LOW* (05/01/15 1:34 PM) Segs [45.0-75.0 %] 49.2 % (05/01/15 1:34 PM) Lymphocytes 39.4 % [20.0-40.0 %] (05/01/15 1:34 PM) Monocytes [2.0-12.0 9.3 % %] (05/01/15 1:34 PM) Eosinophils [0.0-4.0 1.3 % %] (05/01/15 1:34 PM) Basophils [0.0-1.0 0.8 % %] (05/01/15 1:34 PM) Segs-Bands # 1.4 K/CMM [1.5-8.1 K/CMM] *LOW* (05/01/15 1:34 PM) Lymphocytes # 1.1 K/CMM [1.0-5.5 K/CMM] (05/01/15 1:34 PM) Monocytes # [0.0-0.8 0.3 K/CMM K/CMM] (05/01/15 1:34 PM) Immunizations Vaccine Date Refusal Reason influenza virus [...]
--- OUTSIDE RECORDS SUMMARY | 2018-08-13 18:26 | XMS REPORT | Summary of Care ---
Author Author [facility] Organization [facility] Address Unknown Phone Unavailable Encounter TREVON Frias(KIRSTIE) [id number] Date(s): 12/11/15 - 12/11/15 [facility] [address] [place] [address]- [phone] Discharge Diagnosis: Anemia, unspecified Discharge Disposition: Home Attending Physician: Soniya Amador MD Vital Signs Most recent to 1 2 oldest [Reference Range]: Height 152.4 cm (12/11/15 9:52 PM) Temperature Oral 98.4 DegF 98.8 DegF [96.4-99.1 DegF] (12/11/15 11:30 PM) (12/11/15 9:52 PM) Blood Pressure 142/67 mmHg 156/52 mmHg [90-140/60-90 mmHg] *HI* *HI* (12/11/15 11:30 PM) (12/11/15 9:52 PM) Respiratory Rate 18 BRMIN 20 BRMIN [14-20 BRMIN] (12/11/15 11:30 PM) (12/11/15 9:52 PM) Peripheral Pulse 82 bpm 84 bpm Rate [60-100 bpm] (12/11/15 11:30 PM) (12/11/15 9:52 PM) Weight 73.182 kg (12/11/15 9:52 PM) Body Mass Index 31.51 m2 (12/11/15 9:52 PM) Problem List Condition Effective Dates Status Health Status Informant Alzheimer's Active disease(Confirmed) Anemia(Confirmed) 01/02/15 Resolved Anxiety(Confirmed) Resolved Asthma(Confirmed) Active Bypass(Confirmed) Resolved CAD - Coronary Active artery disease(Confirmed) Chronic Active anemia(Confirmed) Chronic kidney Active disease (CKD), stage III (moderate)(Confirmed ) COPD(Confirmed) Active Depression(Confirmed Active ) Diabetes Active mellitus(Confirmed) Fibromyalgia(Confirm Active ed) History of - Active multiple allergies(Confirmed) Hyperlipidemia(Confi Active rmed) Hypertension(Confirm Active ed) Hypothyroidism(Confi Active rmed) 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) OA - Active Osteoarthritis(Confi rmed) Obesity(Confirmed) Active Obstructive sleep Active apnea(Confirmed) Parkinson Active disease(Confirmed) Pneumonia(Confirmed) Resolved Psoriasis(Confirmed) Active Allergies, Adverse Reactions, Alerts Substance Reaction Severity Status cefuroxime Active cephalexin Active ciprofloxacin Active erythromycin Active Iodine SENIOR CARE Active penicillin Active sulfa drugs Active trimethoprim Active Medications Gentle Iron oral capsule 1 cap, PO, Daily, # 30 cap, 0 Refill(s), Pharmacy: [id number] Start Date: 12/11/15 Status: Ordered Saline Flush 0.9% 10 mL, Route: IVP, Drug Form: INJ, Dosing Weight 73.182, kg, PRN, PRN Line Flush , Start date: 12/11/15 22:07:00 CDT, Duration: 30 day, Stop date: 01/10/16 22:06 :00 CDT Notes: (Same as: BD Posiflush) Start Date: 12/11/15 Stop Date: 12/12/15 Status: Discontinued Results ELECTROLYTES Most recent to 1 oldest [Reference Range]: Sodium Lvl [135-145 132 mEq/L mEq/L] *LOW* (12/11/15 10:10 PM) Potassium Lvl 4.9 mEq/L [3.5-5.1 mEq/L] (12/11/15 10:10 PM) Chloride Lvl [95-109 99 mEq/L mEq/L] (12/11/15 10:10 PM) CO2 [24-32 mEq/L] 26 mEq/L (12/11/15 10:10 PM) AGAP [10.0-20.0 11.9 mEq/L mEq/L] (12/11/15 10:10 PM) CHEM PANEL Most recent to 1 oldest [Reference Range]: Creatinine Lvl 1.31 mg/dL [0.50-1.40 mg/dL] (12/11/15 10:10 PM) eGFR 38 mL/min/1.73m2 1 *NA* (12/11/15 10:10 PM) BUN [7-22 mg/dL] 22 mg/dL (12/11/15 10:10 PM) B/C Ratio [6-25] 17 (12/11/15 10:10 PM) Glucose Lvl [70-99 181 mg/dL mg/dL] *HI* (12/11/15 10:10 PM) Total Protein 7.1 g/dL [6.4-8.4 g/dL] (12/11/15 10:10 PM) Albumin Lvl [3.5-5.0 3.3 g/dL g/dL] *LOW* (12/11/15 10:10 PM) Globulin [2.0-4.0 3.8 g/dL g/dL] (12/11/15 10:10 PM) A/G Ratio [0.7-1.6] 0.9 (12/11/15 10:10 PM) Calcium Lvl 9.2 mg/dL [8.5-10.5 mg/dL] (12/11/15 10:10 PM) ALT [0-65 unit/L] 23 unit/L (12/11/15 10:10 PM) AST [0-37 unit/L] 25 unit/L (12/11/15 10:10 PM) Alk Phos [39-136 75 unit/L unit/L] (12/11/15 10:10 PM) Bili Total [0.2-1.3 0.4 mg/dL mg/dL] (12/11/15 10:10 PM) 1Result Comment: The eGFR is calculated [...] be mul tiplied by the estimated BMI. CARDIAC ENZYMES Most recent to 1 oldest [Reference Range]: Total CK [12-191 73 unit/L unit/L] (12/11/15 10:10 PM) CK MB [0.5-3.6 0.5 ng/mL ng/mL] (12/11/15 10:10 PM) CK MB Index 0.7 [0.0-2.5] (12/11/15 10:10 PM) Troponin-I <0.02 ng/mL [0.00-0.40 ng/mL] (12/11/15 10:10 PM) URINE AND STOOL Most recent to 1 oldest [Reference Range]: UA Turbidity [Clear] Clear (12/11/15 10:10 PM) UA Color Ltyellow *NA* (12/11/15 10:10 PM) UA pH [5.0-8.0] 5.0 (12/11/15 10:10 PM) UA Spec Grav 1.006 [<=1.030] (12/11/15 10:10 PM) UA Glucose [Negative 50 mg/dL mg/dL] *ABN* (12/11/15 10:10 PM) UA Blood [Negative] Negative (12/11/15 10:10 PM) UA Ketones [Negative Trace mg/dL mg/dL] *ABN* (12/11/15 10:10 PM) UA Protein [Negative Negative mg/dL mg/dL] (12/11/15 10:10 PM) UA Urobilinogen <=1.0 mg/dL [0.1-1.0 mg/dL] *NA* (12/11/15 10:10 PM) UA Bili [Negative] Negative *NA* (12/11/15 10:10 PM) UA Leuk Est Negative [Negative] (12/11/15 10:10 PM) UA Nitrite Negative [Negative] (12/11/15 10:10 PM) UA WBC [0-5 /HPF] <1 /HPF (12/11/15 10:10 PM) UA Bacteria [None Occasional /HPF Seen /HPF] *NA* (12/11/15 10:10 PM) UA Sq Epi [Few /LPF] Occasional /LPF *NA* (12/11/15 10:10 PM) HEMATOLOGY Most recent to 1 oldest [Reference Range]: WBC [3.7-10.4 K/CMM] 4.6 K/CMM (12/11/15 10:10 PM) RBC [4.20-5.40 3.52 M/CMM M/CMM] *LOW* (12/11/15 10:10 PM) Hgb [12.0-16.0 g/dL] 9.9 g/dL *LOW* (12/11/15 10:10 PM) Hct [36.0-48.0 %] 30.5 % *LOW* (12/11/15 10:10 PM) MCV [80.0-98.0 fL] 86.6 fL (12/11/15 10:10 PM) MCH [27.0-31.0 pg] 28.1 pg (12/11/15 10:10 PM) MCHC [32.0-36.0 32.5 g/dL g/dL] (12/11/15 10:10 PM) RDW [11.5-14.5 %] 13.8 % (12/11/15 10:10 PM) Platelet [133-450 322 K/CMM K/CMM] (12/11/15 10:10 PM) MPV [7.4-10.4 fL] 6.8 fL *LOW* (12/11/15 10:10 PM) Segs [45.0-75.0 %] 80.9 % *HI* (12/11/15 10:10 PM) Lymphocytes 11.9 % [20.0-40.0 %] *LOW* (12/11/15 10:10 PM) Monocytes [2.0-12.0 6.5 % %] (12/11/15 10:10 PM) Eosinophils [0.0-4.0 0.2 % %] (12/11/15 10:10 PM) Basophils [0.0-1.0 0.5 % %] (12/11/15 10:10 PM) Segs-Bands # 3.7 K/CMM [1.5-8.1 K/CMM] (12/11/15 10:10 PM) Lymphocytes # 0.5 K/CMM [1.0-5.5 K/CMM] *LOW* (12/11/15 10:10 PM) Monocytes # [0.0-0.8 0.3 K/CMM K/CMM] (12/11/15 10:10 PM) Immunizations Vaccine Date Refusal Reason influenza virus vaccine, inactivated 06/30/14 pneumococcal 13-valent vaccine1 03/11/14 1Admin Note: pt got it at [facility]=apr 2012 Procedures Procedure Date Related Diagnosis [...]
--- OUTSIDE RECORDS SUMMARY | 2018-08-13 18:27 | XMS REPORT | Summary of Care ---
Author Author [facility] Organization [facility] Address Unknown Phone Unavailable Encounter TREVON Frias(KIRSTIE) [phone] Date(s): 06/14/17 - 06/14/17 [facility] [address] [place] [address]- [phone] Discharge Disposition: Other Healthcare Facility Attending Physician: Mani White MD Vital Signs Most recent to 1 2 oldest [Reference Range]: Height 162.56 cm (06/14/17 10:44 AM) Temperature Oral 98.4 DegF 98.4 DegF [96.4-99.1 DegF] (06/14/17 3:00 PM) (06/14/17 10:44 AM) Blood Pressure 149/38 mmHg 156/44 mmHg [90-140/60-90 mmHg] *HI* *HI* (06/14/17 3:00 PM) (06/14/17 10:44 AM) Respiratory Rate 20 BRMIN 18 BRMIN [14-20 BRMIN] (06/14/17 3:00 PM) (06/14/17 10:44 AM) Peripheral Pulse 55 bpm Rate [60-100 bpm] *LOW* (06/14/17 10:44 AM) Weight 72.727 kg (06/14/17 10:44 AM) Body Mass Index 27.52 m2 (06/14/17 10:44 AM) Problem List Condition Effective Dates Status Health Status Informant Alzheimer's Active disease(Confirmed) Anemia of chronic Active disease(Confirmed) Anxiety(Confirmed) Active Benign Active hypertension(Confirm ed) Bypass(Confirmed) Resolved CAD - Coronary Active artery disease(Confirmed) Chronic kidney Active disease (CKD), stage III (moderate)(Confirmed ) COPD(Confirmed) Active Depression(Confirmed Active ) Diabetes(Confirmed) 08/19/79 Resolved 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) Fibromyalgia(Confirm Active ed) History of - Active multiple allergies(Confirmed) History of 08/19/99 Resolved Parkinson's disease(Confirmed) History of Active fall(Confirmed) Hyperlipidemia(Confi Resolved rmed) Hyperlipidemia(Confi Active rmed) Hypertension(Confirm Resolved ed) Hypothyroidism(Confi Active rmed) Kidney Active stone(Confirmed) right Knee Active replacement(Confirme d) OA - Active Osteoarthritis(Confi rmed) Obesity(Confirmed) Active Obstructive sleep Active apnea(Confirmed) Allergies, Adverse Reactions, Alerts Substance Reaction Severity Status cefuroxime Active ciprofloxacin Active erythromycin Active Iodine LONGTERM Active penicillin Active sulfa drugs Active trimethoprim Active Medications Saline Flush 0.9% 10 mL, Route: IVP, Drug Form: INJ, Dosing Weight 72.727, kg, PRN, PRN Line Flush , Start date: 06/14/17 11:23:00 CDT, Duration: 30 day, Stop date: 07/14/17 10:22 :00 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: (Same as: BD Posiflush) Start Date: 06/14/17 Stop Date: 06/14/17 Status: Discontinued Results BLOOD BANK RESULTS Most recent to 1 oldest [Reference Range]: ABO/Rh A POS *Unknown* (06/14/17 2:22 PM) Antibody Scrn Negative (06/14/17 2:22 PM) ELECTROLYTES Most recent to 1 oldest [Reference Range]: Sodium Lvl [135-145 140 mEq/L mEq/L] (06/14/17 11:44 AM) Potassium Lvl 4.1 mEq/L [3.5-5.1 mEq/L] (06/14/17 11:44 AM) Chloride Lvl [95-109 104 mEq/L mEq/L] (06/14/17 11:44 AM) CO2 [24-32 mEq/L] 30 mEq/L (06/14/17 11:44 AM) AGAP [10.0-20.0 10.1 mEq/L mEq/L] (06/14/17 11:44 AM) CHEM PANEL Most recent to 1 oldest [Reference Range]: Creatinine Lvl 0.97 mg/dL [0.50-1.40 mg/dL] (06/14/17 11:44 AM) eGFR 55 mL/min/1.73m2 1 *NA* (06/14/17 11:44 AM) BUN [7-22 mg/dL] 15 mg/dL (06/14/17 11:44 AM) B/C Ratio [6-25] 15 (06/14/17 11:44 AM) Glucose Lvl [70-99 159 mg/dL mg/dL] *HI* (06/14/17 11:44 AM) Total Protein 6.0 g/dL [6.4-8.4 g/dL] *LOW* (06/14/1744 AM) Albumin Lvl [3.5-5.0 3.2 g/dL g/dL] *LOW* (06/14/17:44 AM) Globulin [2.7-4.2 2.8 g/dL g/dL] (06/14/17 1144 AM) A/G Ratio [0.7-1.6] 1.1 (06/14/17 11:44 AM) Calcium Lvl 8.3 mg/dL [8.5-10.5 mg/dL] *LOW* (06/14/1744 AM) Phosphorus [2.5-4.5 2.9 mg/dL mg/dL] (06/14/17 11:44 AM) Magnesium Lvl 2.3 mg/dL [1.8-2.4 mg/dL] (06/14/17 11:44 AM) ALT [0-65 unit/L] 18 unit/L (06/14/17 11:44 AM) AST [0-37 unit/L] 22 unit/L (06/14/17 11:44 AM) Alk Phos [39-136 79 unit/L unit/L] (06/14/17 11:44 AM) Bili Total [0.2-1.3 0.4 mg/dL mg/dL] (06/14/17 11:44 AM) 1Result Comment: The eGFR is calculated using [...] 1 oldest [Reference Range]: Total CK [12-191 36 unit/L unit/L] (06/14/17 11:44 AM) CK MB [0.5-3.6 0.8 ng/mL ng/mL] (06/14/17 11:44 AM) CK MB Index 2.2 [0.0-2.5] (06/14/17 11:44 AM) Troponin-I <0.02 ng/mL [0.00-0.40 ng/mL] (06/14/17 11:44 AM) BNP [<=100 pg/mL] 142 pg/mL *HI* (06/14/17 11:44 AM) URINE AND STOOL Most recent to 1 oldest [Reference Range]: UA Turbidity [Clear] Clear (06/14/17 1:26 PM) UA Color Ltyellow *NA* (06/14/17 1:26 PM) UA pH [5.0-8.0] 7.0 (06/14/17 1:26 PM) UA Spec Grav 1.004 [<=1.030] (06/14/17 1:26 PM) UA Glucose [Negative Negative mg/dL mg/dL] *NA* (06/14/17 1:26 PM) UA Blood [Negative] Small *ABN* (06/14/17 1:26 PM) UA Ketones [Negative Negative mg/dL mg/dL] *NA* (06/14/17 1:26 PM) UA Protein [Negative Negative mg/dL mg/dL] (06/14/17 1:26 PM) UA Urobilinogen <=1.0 mg/dL [0.1-1.0 mg/dL] *NA* (06/14/17 1:26 PM) UA Bili [Negative] Negative *NA* (06/14/17 1:26 PM) UA Leuk Est Small [Negative] *ABN* (06/14/17 1:26 PM) UA Nitrite Negative [Negative] (06/14/17 1:26 PM) UA WBC [0-5 /HPF] 3 /HPF (06/14/17 1:26 PM) UA RBC [0-2 /HPF] 1 /HPF (06/14/17 1:26 PM) UA Bacteria [None Occasional /HPF Seen /HPF] *NA* (06/14/17 1:26 PM) UA Sq Epi [Few /LPF] Occasional /LPF *NA* (06/14/17 1:26 PM) HEMATOLOGY Most recent to 1 oldest [Reference Range]: WBC [3.7-10.4 K/CMM] 3.2 K/CMM *LOW* (06/14/17 11:44 AM) RBC [4.20-5.40 2.41 M/CMM M/CMM] *LOW* (06/14/17 11:44 AM) Hgb [12.0-16.0 g/dL] 7.6 g/dL *LOW* (06/14/17 11:44 AM) Hct [36.0-48.0 %] 23.1 % *LOW* (06/14/17 11:44 AM) MCV [80.0-98.0 fL] 96.1 fL (06/14/17 11:44 AM) MCH [27.0-31.0 pg] 31.4 pg *HI* (06/14/17 11:44 AM) MCHC [32.0-36.0 32.7 g/dL g/dL] (06/14/17 11:44 AM) RDW [11.5-14.5 %] 23.2 % *HI* (06/14/17 11:44 AM) Platelet [133-450 133 K/CMM K/CMM] (06/14/17 11:44 AM) MPV [7.4-10.4 fL] 6.5 fL *LOW* (06/14/17 11:44 AM) Segs [45.0-75.0 %] 61.5 % (06/14/17 11:44 AM) Lymphocytes 27.0 % [20.0-40.0 %] (06/14/17 11:44 AM) Monocytes [2.0-12.0 10.2 % %] (06/14/17 11:44 AM) Eosinophils [0.0-4.0 0.8 % %] (06/14/17 11:44 AM) Basophils [0.0-1.0 0.5 % %] (06/14/17 11:44 AM) Segs-Bands # 2.0 K/CMM [1.5-8.1 K/CMM] (06/14/17 11:44 AM) Lymphocytes # 0.9 K/CMM [1.0-5.5 K/CMM] *LOW* (06/14/17 11:44 AM) Monocytes # [0.0-0.8 0.3 K/CMM K/CMM] (06/14/17 11:44 AM) PTT [22.9-35.8 23.2 seconds seconds] (06/14/17 11:44 AM) Immunizations Given and Recorded Vaccine Date Status Refusal Reason influenza virus vaccine, inactivated1 05/23/17 Given influenza virus vaccine, inactivated2 05/21/17 Given influenza virus vaccine, inactivated 06/22/16 Given influenza virus vaccine, inactivated 06/30/14 Given pneumococcal 13-valent vaccine3 03/11/14 Given pneumococcal 23-valent vaccine4 05/23/17 Given Not Given Vaccine Date Status Refusal Reason influenza virus vaccine, inactivated 05/25/17 Not Given Patient Refuses 1Result Comment: changed her mind 2Result Comment: pt refused 3Admin Note: pt got it at [facility]=apr 2012 4Result Comment: changed her mind Procedures Procedure Date Related Diagnosis Body Site dual cardiac Bypass1 01/14/10 Caesarean section 08/19/60 Abdominal hysterectomy 08/19/57 Appendectomy Back fusion Bladder implantation2 Cholecystectomy Hysterectomy 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 1pt had 2 bypass 2pt states a device was implanted into bladder to help regulate urination/ in addition the battery for this device inserted/located right posterior area above buttock/hip area Social History Social History Type Response Substance [...]
--- OUTSIDE RECORDS SUMMARY | 2018-08-13 18:27 | XMS REPORT | Summary of Care ---
Author Author [facility] Organization [facility] Address Unknown Phone Unavailable Encounter TREVON Frias(KIRSTIE) [id number] Date(s): 05/08/17 - 05/14/17 [facility] [address] [place] [address]- Discharge Disposition: Acute Care Attending Physician: Nick Mott MD Admitting Physician: Nick Mott MD Vital Signs Most recent to 1 2 3 4 oldest [Reference Range]: Height 149.86 cm (05/09/17 4:55 PM) Temperature Oral 98.0 DegF 98.9 DegF 97.5 DegF [96.4-99.1 DegF] (05/14/17 12:27 AM) (05/13/17 8:53 PM) (05/13/17 11:33 AM) Blood Pressure 104/54 mmHg 143/68 mmHg 149/71 mmHg [90-140/60-90 mmHg] (05/14/17 12:27 AM) *HI* *HI* (05/13/17 8:53 PM) (05/13/17 11:33 AM) Respiratory Rate 16 BRMIN 16 BRMIN 16 BRMIN [14-20 BRMIN] (05/14/17 12:27 AM) (05/13/17 8:53 PM) (05/13/17 11:33 AM) Peripheral Pulse 70 bpm 65 bpm 62 bpm Rate [60-100 bpm] (05/14/17 12:27 AM) (05/13/17 8:53 PM) (05/13/17 11:33 AM) Weight 74.318 kg 72.727 kg 81.818 kg 81.818 kg (05/11/17 4:02 AM) (05/09/17 4:55 PM) (05/09/17 3:46 PM) (05/09/17 3:46 PM) Body Mass Index 32.38 m2 (05/09/17 4:55 PM) Problem List Condition Effective Dates Status [...] cefuroxime Active ciprofloxacin Active erythromycin Active Iodine ASSISTED Active penicillin Active sulfa drugs Active trimethoprim Active Medications acetaminophen 650 mg, PO, Q6H, PRN Pain 1-3/Temp > 100.4 F, 0 Refill(s) Start Date: 05/09/17 Status: Suspended albuterol-ipratropium 2.5-0.5 mg inhalation solution 3 mL, Route: NEB, Drug Form: SOLN, Dosing Weight 72.727, kg, ONCE, STAT, Start d ate: 05/08/17 23:33:00 CDT, Stop date: 05/08/17 23:33:00 CDT Start Date: 05/08/17 Stop Date: 05/08/17 Status: Completed ALPRAZOLam 0.5 mg oral tablet 0.5 mg, 1 tab, Route: PO, Drug form: TAB, BID, Dosing Weight 81.818, kg, PRN Anx iety, Start date: 05/09/17 16:26:00 CDT, Duration: 30 day, Stop date: 06/08/17 1 6:25:00 CDT Notes: With food or milk(Same as: Xanax) Start Date: 05/09/17 Stop Date: 05/14/17 Status: Discontinued AMIODarone 200 mg, 1 tab, Route: PO, Drug form: TAB, Bedtime, Dosing Weight 81.818, kg, Sta rt date: 05/09/17 21:00:00 CDT, Duration: 30 day, Stop date: 06/07/17 21:00:00 C DT Notes: (Same as: Cordarone) Start Date: 05/09/17 Stop Date: 05/14/17 Status: Discontinued AMIODarone 200 mg oral tablet 200 mg=1 tab, PO, Bedtime, 0 Refill(s) Start Date: 05/09/17 Status: Suspended aspirin 81 mg tablet, chewable 81 mg, 1 tab, Route: PO, Drug form: CHEWTAB, Q24H, Dosing Weight 72.727, kg, Sta rt date: 05/09/17 7:00:00 CDT, Duration: 30 day, Stop date: 06/07/17 7:00:00 CDT Notes: Take with food. Start Date: 05/09/17 Stop Date: 05/14/17 Status: Discontinued Ativan 0.5 mg, 0.5 tab, Route: PO, Drug form: TAB, ONCE, Dosing Weight 72.727, kg, Star t date: 05/08/17 23:05:00 CDT, Stop date: 05/08/17 23:05:00 CDT Notes: (Same as: Ativan) Start Date: 05/08/17 Stop Date: 05/08/17 Status: Deleted Ativan 0.5 mg, Route: PO, ONCE, Dosing Weight 84.091, kg, Start date: 05/09/17 15:46:00 CDT, Stop date: 05/09/17 15:46:00 CDT Start Date: 05/09/17 Stop Date: 05/09/17 Status: Completed Ativan 0.5 mg, 1 tab, Route: PO, Drug form: TAB, ONCE, Dosing Weight 72.727, kg, Start date: 05/08/17 23:58:00 CDT, Stop date: 05/08/17 23:58:00 CDT Notes: (Same as: Ativan) Start Date: 05/08/17 Stop Date: 05/09/17 Status: Completed atorvastatin 40 mg, 1 tab, Route: PO, Drug form: TAB, Bedtime, Dosing Weight 81.818, kg, Star t date: 05/09/17 21:00:00 CDT, Duration: 30 day, Stop date: 06/07/17 21:00:00 CD T Notes: (Same as: Lipitor) Start Date: 05/09/17 Stop Date: 05/14/17 Status: Discontinued atorvastatin 40 mg oral tablet 40 mg=1 tab, PO, Bedtime, 0 Refill(s) Start Date: 05/09/17 Status: Suspended cefTRIAXone 1 gm, Route: IVPB, ONCE, Dosing Weight 72.727, kg, Priority: STAT, Start date: 0 05/09/17 0:58:00 CDT, Duration: 1 doses or times, Stop date: 05/09/17 0:58:00 CDT , ABX Indication: Urinary Tract Infection Start Date: 05/09/17 Stop Date: 05/09/17 Status: Completed Dextrose 50% Syringe 25 gm, 50 mL, Route: IVP, Drug Form: INJ, Dosing Weight 72.727, kg, PRN, PRN Blo od Glucose Results, Start date: 05/10/17 16:28:00 CDT, Duration: 30 day, Stop da te: 06/09/17 16:27:00 CDT Start Date: 05/10/17 Stop Date: 05/14/17 Status: Discontinued Dextrose 50% Syringe 12.5 gm, 25 mL, Route: IVP, Drug Form: INJ, Dosing Weight 72.727, kg, PRN, PRN B lood Glucose Results, Start date: 05/10/17 16:28:00 CDT, Duration: 30 day, Stop date: 06/09/17 16:27:00 CDT Start Date: 05/10/17 Stop Date: 05/14/17 Status: Discontinued Diphenhist 25 mg oral tablet 25 mg=1 tab, PO, BID, 0 Refill(s) Start Date: 05/09/17 Status: Suspended donepezil 10 mg, 2 tab, Route: PO, Drug form: TAB, Bedtime, Dosing Weight 81.818, kg, Star t date: 05/09/17 21:00:00 CDT, Duration: 30 day, Stop date: 06/07/17 21:00:00 CD T Notes: (Same as: Aricept) Start Date: 05/09/17 Stop Date: 05/14/17 Status: Discontinued donepezil 10 mg oral tablet 10 mg=1 tab, PO, Bedtime, 0 Refill(s) Start Date: 05/09/17 Status: Suspended Effexor XR 150 mg, 1 cap, Route: PO, Drug form: ERCAP, Bedtime, Dosing Weight 81.818, kg, S tart date: 05/09/17 21:00:00 CDT, Duration: 30 day, Stop date: 06/07/17 21:00:00 CDT Notes: Do not open, crush, or chew. (Same As: Effexor XR) Start Date: 05/09/17 Stop Date: 05/14/17 Status: Discontinued famotidine 20 mg, 1 tab, Route: PO, Drug form: TAB, Q12H, Dosing Weight 74.318, kg, Start d ate: 05/13/17 21:00:00 CDT, Duration: 30 day, Stop date: 06/12/17 9:00:00 CDT Notes: (Same as: Pepcid) Start Date: 05/13/17 Stop Date: 05/14/17 Status: Discontinued gabapentin 300 mg oral capsule 300 mg=1 cap, PO, BID, 0 Refill(s) Start Date: 05/09/17 Status: Suspended glucagon 1 mg, Route: IM, Drug form: PDR/INJ, PRN, Dosing Weight 72.727, kg, PRN Blood Gl ucose Results, Start date: 05/10/17 16:28:00 CDT, Duration: 30 day, Stop date: 1 16:27:00 CDT Start Date: 05/10/17 Stop Date: 05/14/17 Status: Discontinued hydrochlorothiazide 12.5 mg, PO, Every Other Day, 0 Refill(s) Start Date: 05/09/17 Status: Suspended hydrOXYzine 25 mg, 1 cap, Route: PO, Drug form: CAP, Q6H, Dosing Weight 74.318, kg, PRN Itch ing, Start date: 05/11/17 20:43:00 CDT, Duration: 30 day, Stop date: 06/10/17 20 :42:00 CDT Notes: (Same as: Vistaril) Start Date: 05/11/17 Stop Date: 05/14/17 Status: Discontinued Imdur 30 mg, 1 tab, Route: PO, Drug form: ERTAB, Bedtime, Dosing Weight 81.818, kg, St art date: 05/09/17 21:00:00 CDT, Duration: 30 day, Stop date: 06/07/17 21:00:00 CDT Notes: (Same as:Imdur)"Do Not Crush" Take on empty stomach/ full glass of water . Do not crush Start Date: 05/09/17 Stop Date: 05/14/17 Status: Discontinued Imdur 30 mg oral tablet, extended release 30 mg=1 tab, PO, Bedtime, 0 Refill(s) Start Date: 05/09/17 Status: Suspended insulin lispro 2 unit, 0.02 mL, Route: SUB-Q, Drug form: SOLN, TID-Before Meals, Dosing Weight 72.727, kg, PRN Blood Glucose Results, Start date: 05/10/17 16:28:00 CDT, Durati on: 30 day, Stop date: 06/09/17 16:27:00 CDT Notes: Roll in palms of hands gently; Do not shake `vigorously. (Same as: Robles osorio )"Single Patient Use Only "WASTE: F/P - Black; E - Municipal Trash Bin Stabl e for 28 days at room temperature.Expires in days from Date Start Date: 05/10/17 Stop Date: 05/14/17 Status: Discontinued insulin lispro 4 unit, 0.04 mL, Route: SUB-Q, Drug form: SOLN, TID-Before Meals, Dosing Weight 72.727, kg, PRN Blood Glucose Results, Start date: 05/10/17 16:28:00 CDT, Durati on: 30 day, Stop date: 06/09/17 16:27:00 CDT Notes: Roll in palms of hands gently; Do not shake `vigorously. (Same as: Robles osorio )"Single Patient Use Only "WASTE: F/P - Black; E - Municipal Trash Bin Stabl e for 28 days at room temperature.Expires in days from Date Start Date: 05/10/17 Stop Date: 05/14/17 Status: Discontinued insulin lispro 10 unit, 0.1 mL, Route: SUB-Q, Drug form: SOLN, TID-Before Meals, Dosing Weight 72.727, kg, PRN Blood Glucose Results, Start date: 05/10/17 16:28:00 CDT, Durati on: 30 day, Stop date: 06/09/17 16:27:00 CDT Notes: Roll in palms of hands gently; Do not shake `vigorously. (Same as: Robles osorio )"Single Patient Use Only "WASTE: F/P - Black; E - Municipal Trash Bin Stabl e for 28 days at room temperature.Expires in days from Date Start Date: 05/10/17 Stop Date: 05/14/17 Status: Discontinued insulin lispro 6 unit, 0.06 mL, Route: SUB-Q, Drug form: SOLN, TID-Before Meals, Dosing Weight 72.727, kg, PRN Blood Glucose Results, Start date: 05/10/17 16:28:00 CDT, Durati on: 30 day, Stop date: 06/09/17 16:27:00 CDT Notes: Roll in palms of hands gently; Do not shake `vigorously. (Same as: Robles osorio )"Single Patient Use Only "WASTE: F/P - Black; E - Municipal Trash Bin Stabl e for 28 days at room temperature.Expires in days from Date Start Date: 05/10/17 Stop Date: 05/14/17 Status: Discontinued insulin lispro 8 unit, 0.08 mL, Route: SUB-Q, Drug form: SOLN, TID-Before Meals, Dosing Weight 72.727, kg, PRN Blood Glucose Results, Start date: 05/10/17 16:28:00 CDT, Durati on: 30 day, Stop date: 06/09/17 16:27:00 CDT Notes: Roll in palms of hands gently; Do not shake `vigorously. (Same as: Humal )"Single Patient Use Only "WASTE: F/P - Black; E - Municipal Trash Bin Stabl e for 28 days at room temperature.Expires in days from Date Start Date: 05/10/17 Stop Date: 05/14/17 Status: Discontinued insulin lispro 4 unit, 0.04 mL, Route: SUB-Q, Drug form: SOLN, Bedtime, Dosing Weight 72.727, k g, PRN Blood Glucose Results, Start date: 05/10/17 16:28:00 CDT, Duration: 30 da y, Stop date: 06/09/17 16:27:00 CDT Notes: Roll in palms of hands gently; Do not shake `vigorously. ([facility] )"Single [facility] Use Only "WASTE: F/P - Black; E - Municipal Trash Bin Stabl e for 28 days at room temperature.Expires in days from Date Start Date: 05/10/17 Stop Date: 05/14/17 Status: Discontinued insulin lispro 3 unit, 0.03 mL, Route: SUB-Q, Drug form: SOLN, Bedtime, Dosing Weight 72.727, k g, PRN Blood Glucose Results, Start date: 05/10/17 16:28:00 CDT, Duration: 30 da y, Stop date: 06/09/17 16:27:00 CDT Notes: Roll in palms of hands gently; Do not shake `vigorously. (Same as: [facility] )"Single Patient Use Only "WASTE: F/P - Black; E - Municipal Trash Bin Stabl e for 28 days at room temperature.Expires in days from Date Start Date: 05/10/17 Stop Date: 05/14/17 Status: Discontinued insulin lispro 2 unit, 0.02 mL, Route: SUB-Q, Drug form: SOLN, Bedtime, Dosing Weight 72.727, k g, PRN Blood Glucose Results, Start date: 05/10/17 16:28:00 CDT, Duration: 30 da y, Stop date: 06/09/17 16:27:00 CDT Notes: Roll in palms of hands gently; Do not shake `vigorously. (Same as: Robles osorio )"Single Patient Use Only "WASTE: F/P - Black; E - Municipal Trash Bin Stabl e for 28 days at room temperature.Expires in days from Date Start Date: 05/10/17 Stop Date: 05/14/17 Status: Discontinued insulin lispro 1 unit, 0.01 mL, Route: SUB-Q, Drug form: SOLN, Bedtime, Dosing Weight 72.727, k g, PRN Blood Glucose Results, Start date: 05/10/17 16:28:00 CDT, Duration: 30 da y, Stop date: 06/09/17 16:27:00 CDT Notes: Roll in palms of hands gently; Do not shake `vigorously. (Same as: Robles osorio )"Single Patient Use Only "WASTE: F/P - Black; E - Municipal Trash Bin Stabl e for 28 days at room temperature.Expires in days from Date Start Date: 05/10/17 Stop Date: 05/14/17 Status: Discontinued Lantus Solostar Pen 100 units/mL subcutaneous solution 20 unit, SUB-Q, Bedtime, 0 Refill(s) Start Date: 05/09/17 Status: Suspended Lantus Solostar Pen 100 units/mL subcutaneous solution 20 unit, 0.2 mL, Route: SUB-Q, Drug form: SOLN, Bedtime, Dosing Weight 81.818, k g, Start date: 05/09/17 21:00:00 CDT, Duration: 30 day, Stop date: 06/07/17 21:0 0:00 CDT Notes: (Same as: Lanjorgeus)Do not hold insulin without contacting prescriberWASTE: F/P - Black; E - Municipal Trash Bin "single patient use only" Start Date: 05/09/17 Stop Date: 05/14/17 Status: Discontinued Lasix 40 mg, Route: IVP, Drug form: INJ, ONCE, Dosing Weight 72.727, kg, Priority: STA T, Start date: 05/09/17 0:02:00 CDT, Stop date: 05/09/17 0:02:00 CDT Start Date: 05/09/17 Stop Date: 05/09/17 Status: Completed Lasix 40 mg, 4 mL, Route: IV, Drug form: INJ, Q12H, Dosing Weight 72.727, kg, Start da te: 05/09/17 9:00:00 CDT, Duration: 30 day, Stop date: 06/07/17 21:00:00 CDT Notes: (Same as: Lasix) MEDICATION WASTE Product Size: 40 mgProduct Was jeffrey: ___ mg Start Date: 05/09/17 Stop Date: 05/09/17 Status: Discontinued Lasix 40 mg, 4 mL, Route: IV, Drug form: INJ, Q12H, Dosing Weight 72.727, kg, Start da te: 05/09/17 21:00:00 CDT, Duration: 3 doses or times, Stop date: 05/10/17 21:00 :00 CDT Notes: (Same as: Lasix) MEDICATION WASTE Product Size: 40 mgProduct Was jeffrey: ___ mg Start Date: 05/09/17 Stop Date: 05/10/17 Status: Completed levothyroxine 150 microgram, 1 tab, Route: PO, Drug form: TAB, Q630AM, Dosing Weight 81.818, k g, Start date: 05/10/17 6:30:00 CDT, Duration: 30 day, Stop date: 06/08/17 6:30: 00 CDT Notes: Take 1 hour before or 2 hours after meal; Enteral feeds may interefere wi th the absorption of this medication. (Same as: Levothroid) Start Date: 05/10/17 Stop Date: 05/14/17 Status: Discontinued metoprolol 25 mg oral tablet, extended release 25 mg=1 tab, PO, Bedtime, 0 Refill(s) Start Date: 05/09/17 Status: Suspended montelukast 10 mg, 1 tab, Route: PO, Drug form: TAB, Bedtime, Dosing Weight 81.818, kg, Star t date: 05/09/17 21:00:00 CDT, Duration: 30 day, Stop date: 06/07/17 21:00:00 CD T Notes: (Same as:Leroy) Start Date: 05/09/17 Stop Date: 05/14/17 Status: Discontinued morphine Sulfate 2 mg, 1 mL, Route: IVP, Drug form: SOLN, Q15Min, Dosing Weight 72.727, kg, PRN C hest Pain, Start date: 05/09/17 2:29:00 CDT, Duration: 2 doses or times, Stop da te: Limited # of times Start Date: 05/09/17 Stop Date: 05/10/17 Status: Completed nitroglycerin SL Tab 0.4 mg, 1 tab, Route: SL, Drug form: TAB, Q5Min, Dosing Weight 72.727, kg, PRN C hest Pain, Start date: 05/09/17 2:29:00 CDT, Duration: 3 doses or times, Stop da te: Limited # of times Notes: (Same as:Nitroquick, Nitrostat)"Do Not Crush" Sublingual tablet Start Date: 05/09/17 Stop Date: 05/14/17 Status: Discontinued nitroglycerin SL Tab 0.4 mg, Route: SL, Drug form: TAB, Q5Min, Dosing Weight 74.318, kg, PRN Chest Pa in, Start date: 05/13/17 16:34:00 CDT, Duration: 3 doses or times, Stop date: Brooke jasmine # of times Start Date: 05/13/17 Stop Date: 05/13/17 Status: Deleted [place] 5/325 oral tablet 1 tab, Route: PO, Drug Form: TAB, Dosing Weight 72.727, kg, Q6H, PRN Pain Score 1-3, Start date: 05/09/17 17:24:00 CDT, Duration: 30 day, Stop date: 06/08/17 17 :23:00 CDT Notes: (Same as: [place] 325/5) Do not exceed 4gm/day of acetaminophen. Start Date: 05/09/17 Stop Date: 05/14/17 Status: Discontinued NovoLOG FlexPen 7 unit, SUB-Q, Before Breakfast, 0 Refill(s) Start Date: 05/09/17 Status: Suspended ondansetron 4 mg, 1 tab, Route: PO, Drug form: TAB, Q8H, Dosing Weight 72.727, kg, PRN Nause a & Vomiting, Start date: 05/09/17 2:29:00 CDT, Duration: 30 day, Stop date: 06/08/17 2:28:00 CDT Notes: (Same as: Zofran) Start Date: 05/09/17 Stop Date: 05/14/17 Status: Discontinued pantoprazole 40 mg, 1 tab, Route: PO, Drug form: ECTAB, Before Breakfast, Dosing Weight 74.31 8, kg, Start date: 05/13/17 7:30:00 CDT, Duration: 30 day, Stop date: 06/11/17 7 :30:00 CDT Notes: Tablet should not be chewed or crushed.(Same as: Protonix) Start Date: 05/13/17 Stop Date: 05/14/17 Status: Discontinued Pyridium 200 mg, 2 tab, Route: PO, Drug form: TAB, TID-After Meals, Dosing Weight 74.318, kg, Start date: 05/11/17 17:30:00 CDT, Duration: 2 day, Stop date: 05/13/17 12: 30:00 CDT Notes: Give with meals.(Same as: Pyridium) Start Date: 05/11/17 Stop Date: 05/13/17 Status: Discontinued Requip 1 mg, 1 tab, Route: PO, Drug form: TAB, BID, Dosing Weight 72.727, kg, PRN Leg C ramps, Priority: NOW, Start date: 05/09/17 17:24:00 CDT, Duration: 30 day, Stop date: 06/08/17 17:23:00 CDT Notes: (Same as: Requip) Start Date: 05/09/17 Stop Date: 05/14/17 Status: Discontinued Rocephin + sodium chloride 0.9% INJ 100 mL 1 gm, Route: IVPB, [id number], Dosing Weight 72.727, kg, Start date: 05/09/17 3:00: 00 CDT, Duration: 10 day, Stop date: 05/18/17 3:00:00 CDT, ABX Indication: Urina ry Tract Infection Notes: (Same As: Rocephin).Use with 100 mL NS and infuse over 30 min MEDICA TION WASTE Product Size: 1000 mgProduct Wasted: ___ mg Start Date: 05/09/17 Stop Date: 05/14/17 Status: Discontinued Saline Flush 0.9% 10 ml, Route: IVP, Drug Form: INJ, Dosing Weight 72.727, kg, Q12H, Start date: 0 05/09/17 9:00:00 CDT, Duration: 30 day, Stop date: 06/07/17 21:00:00 CDT Notes: (Same as: BD Posiflush) Start Date: 05/09/17 Stop Date: 05/14/17 Status: Discontinued Saline Flush 0.9% 10 ml, Route: IVP, Drug Form: INJ, Dosing Weight 72.727, kg, PRN, PRN Line Flush , Start date: 05/09/17 2:29:00 CDT, Duration: 30 day, Stop date: 06/08/17 2:28:0 0 CDT Notes: (Same as: BD Posiflush) Start Date: 05/09/17 Stop Date: 05/14/17 Status: Discontinued Saline Flush 0.9% 10 mL, Route: IVP, Drug Form: INJ, Dosing Weight 72.727, kg, PRN, PRN Line Flush , Start date: 05/08/17 18:52:00 CDT, Duration: 30 day, Stop date: 06/07/17 18:51 :00 CDT Notes: (Same as: BD Posiflush) Start Date: 05/08/17 Stop Date: 05/13/17 Status: Discontinued Saline Flush 0.9% 10 ml, Route: IVP, Drug Form: INJ, Dosing Weight 68.182, kg, Q12H, Start date: 0 05/14/17 9:00:00 CDT, Duration: 30 day, Stop date: 06/12/17 21:00:00 CDT Start Date: 05/14/17 Stop Date: 05/14/17 Status: Canceled Saline Flush 0.9% 10 ml, Route: IVP, Drug Form: INJ, Dosing Weight 68.182, kg, PRN, PRN Line Flush , Start date: 05/14/17 5:55:00 CDT, Duration: 30 day, Stop date: 06/13/17 5:54:0 0 CDT Start Date: 05/14/17 Stop Date: 05/14/17 Status: Discontinued Sodium Chloride 0.9% (Bolus) IV 1,000 mL, Infuse Over: 1 hr, Route: IV, ONCE, Priority: STAT, Dosing Weight 72.7 27 kg, Start date: 05/08/17 23:05:00 CDT, Duration: 1 doses or times, Stop date: 05/08/17 23:05:00 CDT Start Date: 05/08/17 Stop Date: 05/08/17 Status: Completed sodium chloride 0.9% 1000 ml INJ 1,000 mL 1,000 mL, Rate: 75 ml/hr, Infuse over: 13.3 hr, Route: IV, Dosing Weight 74.318 kg, Total Volume: 1,000, Start date: 05/13/17 16:34:00 CDT, Duration: 10 hr, Sto p date: 05/14/17 2:33:00 CDT Start Date: 05/13/17 Stop Date: 05/14/17 Status: Discontinued sodium chloride 0.9% 1000 ml INJ 1,000 mL 1,000 mL, Rate: 75 ml/hr, Infuse over: 13.3 hr, Route: IV, Dosing Weight 74.318 kg, Total Volume: 1,000, Start date: 05/12/17 17:10:00 CDT, Duration: 30 day, St op date: 06/11/17 17:09:00 CDT Start Date: 05/12/17 Stop Date: 05/14/17 Status: Discontinued sodium chloride 0.9% INJ 250 mL 250 mL, Rate: 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, Dosing Weight 7 2.727, kg, Route: IV, Total Volume: 250, Start Date: 05/10/17 9:47:00 CDT, Durat ion: 1 day, Stop date: 05/11/17 9:46:00 CDT, Replace Every: 24 hr Start Date: 05/10/17 Stop Date: 05/11/17 Status: Completed Toprol-XL 25 mg oral tablet, extended release 25 mg, 1 tab, Route: PO, Drug form: ERTAB, Daily, Start date: 05/10/17 9:00:00 C DT, Duration: 30 day, Stop date: 06/08/17 9:00:00 CDT Notes: (Same as: Toprol XL) Do Not Crush Start Date: 05/10/17 Stop Date: 05/14/17 Status: Discontinued Tylenol 650 mg, 2 tab, Route: PO, Drug form: TAB, Q6H, Dosing Weight 72.727, kg, PRN Roger n Score 1-3, Start date: 05/09/17 3:51:00 CDT, Duration: 30 day, Stop date: 05/20 09/04 3:50:00 CDT Notes: Do not exceed 4 gm/day. (Same as: Tylenol) Start Date: 05/09/17 Stop Date: 05/14/17 Status: Discontinued Venofer + sodium chloride 0.9% INJ 90 mL 200 mg, 10 mL, Route: IVPB, Daily, Dosing Weight 74.318, kg, Start date: 7 9:00:00 CDT, Duration: 5 doses or times, Stop date: 05/16/17 9:00:00 CDT Notes: Each 5ml contains 100mg elemental iron. Mix with NSNon-Formulary(Same as :Venofer)Administer IV only. MEDICATION WASTE Product Size: [address] Wasted: ___ mg Start Date: 05/12/17 Stop Date: 05/14/17 Status: Discontinued Results BLOOD BANK RESULTS 1 2 3 Most recent to oldest [Reference Range]: A POS *Unknown* (05/09/17 12:37 AM) ABO/Rh Negative (05/09/17 12:37 AM) Antibody Scrn Product available 1 (05/11/17 6:00 AM) Product available 2 (05/10/17 9:47 AM) Product available 3 (05/09/17 12:57 AM) RBC product 1Result Comment: 05/11/2017 02:27 [id number] notified crystal 05/11/2017 02:27 jw 2Result Comment: 05/10/2017 09:51 [id number] called to Asmita Pepe 05/10/2017 09:51 gw 3Result Comment: 05/09/2017 01:35 [id number] Notified Clinton mccormack 05/09/2017 01:35 hp ELECTROLYTES 1 2 3 Most recent to oldest [Reference Range]: 142 mEq/L (05/13/17 3:59 AM) 136 mEq/L (05/12/17 3:56 AM) 135 mEq/L (05/11/17 4:20 AM) Sodium Lvl [135-145 mEq/L] 4.2 mEq/L (05/13/17 3:59 AM) 4.4 mEq/L (05/12/17 3:56 AM) 3.5 mEq/L (05/11/17 4:20 AM) Potassium Lvl [3.5-5.1 mEq/L] 101 mEq/L (05/13/17 3:59 AM) 98 mEq/L (05/12/17 3:56 AM) 94 mEq/L *LOW* (05/11/17 4:20 AM) Chloride Lvl [95-109 mEq/L] 33 mEq/L *HI* (05/13/17 3:59 AM) 35 mEq/L *HI* (05/12/17 3:56 AM) 34 mEq/L *HI* (05/11/17 4:20 AM) CO2 [24-32 mEq/L] 12.2 mEq/L (05/13/17 3:59 AM) 7.4 mEq/L *LOW* (05/12/17 3:56 AM) 10.5 mEq/L (05/11/17 4:20 AM) AGAP [10.0-20.0 mEq/L] CHEM PANEL 1 2 3 Most recent to oldest [Reference Range]: 0.84 mg/dL (05/13/17 3:59 AM) 0.93 mg/dL (05/12/17 3:56 AM) 1.10 mg/dL (05/11/17 4:20 AM) Creatinine Lvl [0.50-1.40 mg/dL] 65 mL/min/1.73m2 1 *NA* (05/13/17 3:59 AM) 58 mL/min/1.73m2 2 *NA* (05/12/17 3:56 AM) 47 mL/min/1.73m2 3 *NA* (05/11/17 4:20 AM) eGFR 23 mg/dL *HI* (05/13/17 3:59 AM) 21 mg/dL (05/12/17 3:56 AM) 17 mg/dL (05/11/17 4:20 AM) BUN [7-22 mg/dL] 15 (05/08/17 10:40 PM) B/C Ratio [6-25] 114 mg/dL *HI* (05/13/17 3:59 AM) 124 mg/dL *HI* (05/12/17 3:56 AM) 141 mg/dL *HI* (05/11/17 4:20 AM) Glucose Lvl [70-99 mg/dL] 6.3 g/dL *LOW* (05/09/17 7:38 AM) 7.2 g/dL (05/08/17 10:40 PM) Total Protein [6.4-8.4 g/dL] 3.0 g/dL *LOW* (05/13/17 3:59 AM) 2.1 g/dL *LOW* (05/12/17 3:56 AM) 3.3 g/dL *LOW* (05/09/17 7:38 AM) Albumin Lvl [3.5-5.0 g/dL] 3.0 g/dL (05/09/17 7:38 AM) 3.5 g/dL (05/08/17 10:40 PM) Globulin [2.7-4.2 g/dL] 1.1 (05/09/17 7:38 AM) 1.1 (05/08/17 10:40 PM) A/G Ratio [0.7-1.6] 8.4 mg/dL *LOW* (05/13/17 3:59 AM) 8.5 mg/dL (05/12/17 3:56 AM) 9.1 mg/dL (05/11/17 4:20 AM) Calcium Lvl [8.5-10.5 mg/dL] 3.0 mg/dL (05/13/17 3:59 AM) 2.7 mg/dL (05/12/17 3:56 AM) Phosphorus [2.5-4.5 mg/dL] 22 unit/L (05/09/17 7:38 AM) 20 unit/L (05/08/17 10:40 PM) ALT [0-65 unit/L] 22 unit/L (05/09/17 7:38 AM) 21 unit/L (05/08/17 10:40 PM) AST [0-37 unit/L] 63 unit/L (05/09/17 7:38 AM) 77 unit/L (05/08/17 10:40 PM) Alk Phos [39-136 unit/L] 0.5 mg/dL (05/09/17 7:38 AM) 0.4 mg/dL (05/08/17 10:40 PM) Bili Total [0.2-1.3 mg/dL] 0.1 mg/dL (05/09/17 7:38 AM) Bili Direct [0.0-0.3 mg/dL] 0.4 mg/dL (05/09/17 7:38 AM) Bili Indirect [0.0-1.0 mg/dL] 1Result Comment: The eGFR is calculated [...] tiplied by the estimated BMI. CARDIAC ENZYMES 1 2 3 Most recent to oldest [Reference Range]: 118 unit/L (05/09/17 7:38 AM) 56 unit/L (05/08/17 10:40 PM) Total CK [12-191 unit/L] 0.9 ng/mL (05/09/17 7:38 AM) 0.6 ng/mL (05/08/17 10:40 PM) CK MB [0.5-3.6 ng/mL] 0.8 (05/09/17 7:38 AM) 1.1 (05/08/17 10:40 PM) CK MB Index [0.0-2.5] 0.14 ng/mL (05/09/17 7:38 AM) <0.02 ng/mL (05/08/17 10:40 PM) Troponin-I [0.00-0.40 ng/mL] 373 pg/mL *HI* (05/08/17 11:50 PM) BNP [<=100 pg/mL] LIPIDS 1 2 3 Most recent to oldest [Reference Range]: 1.61 *LOW* (05/11/17 4:20 AM) 1.52 *LOW* (05/09/17 7:38 AM) CHD Risk [3.90-5.80] 137 mg/dL (05/11/17 4:20 AM) 129 mg/dL (05/09/17 7:38 AM) Chol [<=199 mg/dL] 102 mg/dL (05/11/17 4:20 AM) 71 mg/dL (05/09/17 7:38 AM) Trig [<=149 mg/dL] 85 mg/dL (05/11/17 4:20 AM) 85 mg/dL (05/09/17 7:38 AM) HDL [>=61 mg/dL] 32 mg/dL (05/11/17 4:20 AM) 30 mg/dL (05/09/17 7:38 AM) LDL (Calculated) [<=99 mg/dL] 20 *NA* (05/11/17 4:20 AM) 14 *NA* (05/09/17 7:38 AM) VLDL SPECIAL CHEMISTRY 1 2 3 Most recent to oldest [Reference Range]: 5.9 % *HI* (05/11/17 4:20 AM) Hgb A1C [<=5.6 %] ANEMIA STUDY 1 2 3 Most recent to oldest [Reference Range]: 30 ug/dl (05/10/17 3:02 AM) Iron [30-160 ug/dl] 28 ng/mL (05/10/17 3:02 AM) Ferritin Lvl [5-204 ng/mL] 7 % *LOW* (05/10/17 3:02 AM) % S[place] Fe [12-57 %] 374 ug/dl *HI* (05/10/17 3:02 AM) UIBC [110-370 ug/dl] 404 ug/dl (05/10/17 3:02 AM) TIBC [228-428 ug/dl] URINE AND STOOL 1 2 3 Most recent to oldest [Reference Range]: Slight *ABN* (05/09/17 12:10 AM) UA Turbidity [Clear] Ltyellow *NA* (05/09/17 12:10 AM) UA Color 5.0 (05/09/17 12:10 AM) UA pH [5.0-8.0] 1.013 (05/09/17 12:10 AM) UA Spec Grav [<=1.030] 150 mg/dL *ABN* (05/09/17 12:10 AM) UA Glucose [Negative mg/dL] Small *ABN* (05/09/17 12:10 AM) UA Blood [Negative] 20 mg/dL *ABN* (05/09/17 12:10 AM) UA Ketones [Negative mg/dL] 30 mg/dL *ABN* (05/09/17 12:10 AM) UA Protein [Negative mg/dL] <=1.0 mg/dL *NA* (05/09/17 12:10 AM) UA Urobilinogen [0.1-1.0 mg/dL] Negative *NA* (05/09/17 12:10 AM) UA Bili [Negative] Moderate *ABN* (05/09/17 12:10 AM) UA Leuk Est [Negative] Negative (05/09/17 12:10 AM) UA Nitrite [Negative] 31 /HPF *HI* (05/09/17 12:10 AM) UA WBC [0-5 /HPF] 4 /HPF *HI* (05/09/17 12:10 AM) UA RBC [0-2 /HPF] Occasional /HPF *NA* (05/09/17 12:10 AM) UA Bacteria [None Seen /HPF] None Seen *NA* (05/09/17 12:10 AM) UA Sq Epi 3 /LPF *HI* (05/09/17 12:10 AM) UA Hyal Cast [0-2 /LPF] 3 /LPF *HI* (05/09/17 12:10 AM) UA WBC Cast [<=0 /LPF] Positive *ABN* (05/12/17 6:35 PM) Occult Bld Stl [Negative] HEMATOLOGY 1 2 3 Most recent to oldest [Reference Range]: 3.6 K/CMM *LOW* (05/13/17 3:59 AM) 3.9 K/CMM (05/12/17 3:56 AM) 4.9 K/CMM (05/11/17 4:20 AM) WBC [3.7-10.4 K/CMM] 3.93 M/CMM *LOW* (05/13/17 3:59 AM) 3.93 M/CMM *LOW* (05/12/17 3:56 AM) 3.93 M/CMM *LOW* (05/11/17 4:20 AM) RBC [4.20-5.40 M/CMM] 9.3 g/dL *LOW* (05/13/17 3:59 AM) 9.2 g/dL *LOW* (05/12/17 3:56 AM) 8.9 g/dL *LOW* (05/11/17 4:20 AM) Hgb [12.0-16.0 g/dL] 29.6 % *LOW* (05/13/17 3:59 AM) 29.2 % *LOW* (05/12/17 3:56 AM) 28.4 % *LOW* (05/11/17 4:20 AM) Hct [36.0-48.0 %] 75.2 fL *LOW* (05/13/17 3:59 AM) 74.3 fL *LOW* (05/12/17 3:56 AM) 72.3 fL *LOW* (05/11/17 4:20 AM) MCV [80.0-98.0 fL] 23.6 pg *LOW* (05/13/17 3:59 AM) 23.5 pg *LOW* (05/12/17 3:56 AM) 22.5 pg *LOW* (05/11/17 4:20 AM) MCH [27.0-31.0 pg] 31.4 g/dL *LOW* (05/13/17 3:59 AM) 31.6 g/dL *LOW* (05/12/17 3:56 AM) 31.2 g/dL *LOW* (05/11/17 4:20 AM) MCHC [32.0-36.0 g/dL] 21.1 % *HI* (05/13/17 3:59 AM) 20.6 % *HI* (05/12/17 3:56 AM) 20.3 % *HI* (05/11/17 4:20 AM) RDW [11.5-14.5 %] 198 K/CMM (05/13/17 3:59 AM) 185 K/CMM (05/12/17 3:56 AM) 198 K/CMM (05/11/17 4:20 AM) Platelet [133-450 K/CMM] 7.2 fL *LOW* (05/13/17 3:59 AM) 7.2 fL *LOW* (05/12/17 3:56 AM) 7.5 fL (05/11/17 4:20 AM) MPV [7.4-10.4 fL] 51.3 % (05/13/17 3:59 AM) 51.6 % (05/12/17 3:56 AM) 73.7 % (05/09/17 7:38 AM) Segs [45.0-75.0 %] 38.1 % (05/13/17 3:59 AM) 35.0 % (05/12/17 3:56 AM) 15.9 % *LOW* (05/09/17 7:38 AM) Lymphocytes [20.0-40.0 %] 9.1 % (05/13/17 3:59 AM) 11.7 % (05/12/17 3:56 AM) 9.4 % (05/09/17 7:38 AM) Monocytes [2.0-12.0 %] 1.1 % (05/13/17 3:59 AM) 1.0 % (05/12/17 3:56 AM) 0.2 % (05/09/17 7:38 AM) Eosinophils [0.0-4.0 %] 0.4 % (05/13/17 3:59 AM) 0.7 % (05/12/17 3:56 AM) 0.8 % (05/09/17 7:38 AM) Basophils [0.0-1.0 %] 1.9 K/CMM (05/13/17 3:59 AM) 2.0 K/CMM (05/12/17 3:56 AM) 4.8 K/CMM (05/09/17 7:38 AM) Segs-Bands # [1.5-8.1 K/CMM] 1.4 K/CMM (05/13/17 3:59 AM) 1.4 K/CMM (05/12/17 3:56 AM) 1.0 K/CMM (05/09/17 7:38 AM) Lymphocytes # [1.0-5.5 K/CMM] 0.3 K/CMM (05/13/17 3:59 AM) 0.5 K/CMM (05/12/17 3:56 AM) 0.6 K/CMM (05/09/17 7:38 AM) Monocytes # [0.0-0.8 K/CMM] 0.1 K/CMM (05/09/17 7:38 AM) Basophils # [0.0-0.2 K/CMM] 1+ *ABN* (05/08/17 10:40 PM) Anisocyte [None Seen] 1+ (05/08/17 10:40 PM) Hypochrom [None Seen] 1+ *ABN* (05/13/17 3:59 AM) 1+ *ABN* (05/12/17 3:56 AM) 1+ *ABN* (05/09/17 7:38 AM) Microcyte [None Seen] Normal (05/08/17 10:40 PM) Plt Morph 2.4 % *HI* (05/10/17 3:02 AM) Retic Auto [0.5-1.5 %] Immunizations Given and Recorded Vaccine Date Status Refusal Reason influenza virus vaccine, inactivated 06/22/16 Given influenza virus vaccine, inactivated 06/30/14 Given pneumococcal 13-valent vaccine1 03/11/14 Given 1Admin Note: pt got it at [facility]=apr 2012 Procedures Procedure Date Related Diagnosis Body Site dual cardiac Bypass1 01/14/10 Caesarean section 08/19/60 Abdominal hysterectomy 08/19/57 Appendectomy Back fusion Cholecystectomy Hysterectomy TKR -Total [...] quit 33 yrs ago Assessment and Plan Extracted from: Title: CCU Admission H&P * Author: Layla Laura Date: 05/14/17 Patient: WILFREDO SORENSEN Age: 81 years Sex: Female : 1935 Associated Diagnoses: None Author: Layla Laura MD Basic Information Admit information: 81 year old woman with hx of coronary artery disease s/p CABG in 2008 and severe symptomatic aortic stenosis(gradient of 37,TRELL of 0.7, velocity of 3.9ms) transferred [facility] for TAVR . Source of history: Self. Present at bedside: Family member. Referral source: [facility]. History limitation: Hearing impaired. Chief Complaint chest pain. History of Present Illness 81 year old woman with hx of coronary artery disease s/p 2 vessel CABG in 2008 with EDWARDS to LAD, saphenous vein graft to 2nd marginal artery -last cath in 2014 showed patent grafts, with mild to moderate pulmonary hypertension, severe aortic stenosis( gradient of 37mmHg, TRELL of 0.7, velocity of 3.9ms) with EF of 55-60% on Echo in Apr 2017, atrial fibrillation,rhythm controlled on amiodarone, diabetes mellitus on insulin -a1c of 5.9%, chornic microcytic anemia of unknown etiology-suspected GI source, hypothyroidism on levothyroxine, Parkinson's disease and Alzhemier's disease. She reports left sided chest pain of sudden onset, radiating to arm, pressure like lasting for at least 30 minutes associated with fatigue, fast palpitations, and SOB on the day of admission, 05/09. She gets CP and SOB on exertion, and her exercise tolerance is 2-3 rooms in the house before she has to rest. She reports 6 months hx of CP on minimal exertion but worse post the [place] as she endured heavy material losses and has been increasingly stressed about the recovery of her home. She has also noted increasing fatigue over the last few months and had recently called her PCP due to dysuria, although urine culture had been negative. She presented to the ED at [facility] and was found to clinically to be in acute congestive heart failure, with new EKG T wave inversions in II, I, V4-V6, with no troponemia or abnormal CXR findings. She was started on lasix 40 IV BID and repeat ECHO showed worsening of her aortic stenosis. She had previously been told to have a TAVR for replacement but has been lost to follow up. She was transferred to [facility] for eval for TAVR given the severity of her valvular disease. While at [facility], she was found to have a urine culture positive for E.coli with cobb sensitivity except tetracycline and has been placed on rocephin, 1 time dose. She was also found to be anemia, Hb of 6.9 on admission and was transfused 3 units. Previous investigations for anemia including serum electropheresis, bone marrow biopsy have yielded no definitive answers. She has previously had an EGD in 2015 which showed erosive gastritis, barrets esophagus, mild duodenitis, and an inconclusive colonoscopy due to poor prep showed severe diverticulosis and hemorrhoids. She was seen by both hematology and GI teams at [facility]. Hematology recommendations included follow up as O/P in clinic, iron infusion and possible repeat bone marrow biopsy if warranted. GI believes repeat EGD and colonoscopy might not be beneficial due to sedation risks, and they believe angiodysplasia might be the cause. Review of Systems Constitutional: No chills, No sweats. Eye: Recent visual problem, No icterus, No blurring. Ear/Nose/Mouth/Throat: Decreased hearing: Bilaterally. Respiratory: Shortness of breath, No cough, No sputum production, No hemoptysis. Cardiovascular: Chest pain. Gastrointestinal: No nausea, No vomiting, No diarrhea. Genitourinary: No dysuria, No hematuria. Hematology/Lymphatics: No bruising tendency, No bleeding tendency. Endocrine: No excessive thirst, No polyuria. Immunologic: Not immunocompromised, No recurrent fevers. Musculoskeletal: No neck pain, No joint pain. Integumentary: No rash, No pruritus. Neurologic: Alert and oriented X4, No confusion. Psychiatric: Negative except as documented in history of present illness. Health Status Allergies: Allergic Reactions (All) Severity Not Documented Cefuroxime- No reactions were documented. Ciprofloxacin- No reactions were documented. Erythromycin- No reactions were documented. Iodine ASSISTED- No reactions were documented. Penicillin- No reactions were documented. Sulfa drugs- No reactions were documented. Trimethoprim- No reactions were documented. Canceled/Inactive Reactions (All) Severity Not Documented Cephalexin- No reactions were documented., Allergies (7) ActiveReaction cefuroximeNone Documented ciprofloxacinNone Documented erythromycinNone Documented Iodine USPNone Documented penicillinNone Documented sulfa drugsNone Documented trimethoprimNone Documented Current medications: (Selected) Inpatient Medications Ordered influenza virus vaccine, inactivated: 0.5 mL, IM, Daily pneumococcal 13-valent vaccine: 0.5 mL, IM, Daily Prescriptions Suspended Effexor XR 150 mg oral capsule, extended release: 150 mg, 1 cap, PO, Bedtime, for 90 day, 90 cap, 1 Refill(s) betamethasone-clotrimazole topical 0.05%-1% cream: 1 appl, TOP, BID, for 14 day, PRN: Apply to affected areas, 45 gm, 1 Refill(s) levothyroxine 150 mcg (0.15 mg) oral tablet: 150 microgram, 1 tab, PO, Daily, 90 tab, 1 Refill(s) lisinopril 20 mg oral tablet: 20 mg, 1 tab, PO, Daily, for 30 day, 30 tab, 4 Refill(s) montelukast 10 mg oral tablet: 10 mg, 1 tab, PO, Bedtime, for 90 day, 90 tab, 1 Refill(s) nitroglycerin 0.4 mg sublingual tablet: 0.4 mg, 1 tab, SL, Q5Min, for 30 day, PRN: Chest Pain, 100 tab, 0 Refill(s) ranitidine 150 mg oral tablet: 150 mg, 1 tab, PO, BID, for 90 day, 180 tab, 0 Refill(s) Documented Medications Suspended ALPRAZOLam 0.5 mg oral tablet: 0.5 mg, 1 tab, PO, BID, for 30 day, PRN: Anxiety, 60 tab, 0 Refill(s) AMIODarone 200 mg oral tablet: 200 mg, 1 tab, PO, Bedtime, 0 Refill(s) Diphenhist 25 mg oral tablet: 25 mg, 1 tab, PO, BID, 0 Refill(s) Imdur 30 mg oral tablet, extended release: 30 mg, 1 tab, PO, Bedtime, 0 Refill(s) Lantus Solostar Pen 100 units/mL subcutaneous solution: 20 unit, SUB-Q, Bedtime, 0 Refill(s) NovoLOG FlexPen: 7 unit, SUB-Q, Before Breakfast, 0 Refill(s) acetaminophen: 650 mg, PO, Q6H, PRN: Pain 1-3/Temp > 100.4 F, 0 Refill(s) atorvastatin 40 mg oral tablet: 40 mg, 1 tab, PO, Bedtime, 0 Refill(s) donepezil 10 mg oral tablet: 10 mg, 1 tab, PO, Bedtime, 0 Refill(s) gabapentin 300 mg oral capsule: 300 mg, 1 cap, PO, BID, 0 Refill(s) hydrochlorothiazide: 12.5 mg, PO, Every Other Day, 0 Refill(s) metoprolol 25 mg oral tablet, extended release: 25 mg, 1 tab, PO, Bedtime, 0 Refill(s), No qualifying data available Problem list: All Problems Alzheimer's disease / SNOMED CT 58263026 / Confirmed Anemia of chronic disease / SNOMED CT 215695320 / Confirmed Anxiety / SNOMED CT [id number] / Confirmed Benign hypertension / SNOMED CT 21262501 / Confirmed CAD - Coronary artery disease / SNOMED CT 8356494829 / Confirmed Chronic kidney disease (CKD), stage III (moderate) / SNOMED CT 2837781954 / Confirmed COPD / SNOMED CT 27705567 / Confirmed Depression / SNOMED CT [id number] / Confirmed Diabetes mellitus due to underlying condition with diabetic chronic kidney disease / SNOMED CT 868595747 / Confirmed Fibromyalgia / ICD-9-CM 729.1 / Confirmed History of - multiple allergies / SNOMED CT 0882441138 / Confirmed History of fall / SNOMED CT 0642950485 / Confirmed Hyperlipidemia / SNOMED CT 80743732 / Confirmed Hypothyroidism / SNOMED CT 63196927 / Confirmed Kidney stone / ICD-9-CM 592.0 / Confirmed right Knee replacement / SNOMED CT 763168851 / Confirmed OA - Osteoarthritis / SNOMED CT 5910451553 / Confirmed Obesity / SNOMED CT 7010474450 / Confirmed Obstructive sleep apnea / SNOMED CT 2384943656 / Confirmed, Active Problems (19) Alzheimer's disease Anemia of chronic disease Anxiety Benign hypertension CAD - Coronary artery disease Chronic kidney disease (CKD), stage III (moderate) COPD Depression Diabetes mellitus due to underlying condition with diabetic chronic kidney disease Fibromyalgia History of - multiple allergies History of fall Hyperlipidemia Hypothyroidism Kidney stone OA - Osteoarthritis Obesity Obstructive sleep apnea right Knee replacement Histories Past Medical History: Active History of - multiple allergies (5099115624) OA - Osteoarthritis (6192671061) right Knee replacement (885204279) Kidney stone (592.0) Fibromyalgia (729.1) Depression ([id number]) Anxiety ([id number]) Resolved History of Parkinson's disease (7946156349): Onset on 08/19/1999 at 64 years. Resolved. Diabetes (049674131): Onset on 08/19/1979 at 44 years. Resolved. Bypass (505045585): Resolved. Hypertension (1191832068): Resolved. Hyperlipidemia (41624691): Resolved. Family History: Leukemia Father Osteoarthritis Mother Cystic fibrosis. Sister Procedure history: dual cardiac Bypass (370992284) on 01/14/2010 at 74 Years. Comments: 04/19/2015 11:22 - Christa Currie MA pt had 2 bypass Caesarean section (29855018) on 08/19/1960 at 25 Years. Abdominal hysterectomy (289101638) on 08/19/1957 at 22 Years. Cholecystectomy (99455025). Hysterectomy (567832947). 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 (601021985). Back fusion (373482971). Appendectomy (160292992). Social History Social & Psychosocial Habits Alcohol 01/25/2017 Use: Never Employment/School 05/10/2014 Hazardous equipment operation: No Exercise 05/10/2014 Duration (average number of minutes): 0 Comment: up to the bathroom. - 05/10/2014 21:53 - Josy Lepe RN Sexual 05/10/2014 Sexually active: No Substance Abuse 05/10/2014 Use: None Tobacco 05/14/2017 Use: Former smoker Type: Cigarettes Exposure to Tobacco Smoke None Cigarette Smoking Last 365 Days No Reg Smoking Cessation Counseling No Comment: pt quit 33 yrs ago - 04/19/2015 11:23 - Christa Currie MA . Physical Examination VS/Measurements Measurements from flowsheet : Measurements 05/14/2017 02:17 Heparin Dosing Weight (kg) 53.19 05/14/2017 02:17 Height 149.86 cm Height Collection Method Estimated Weight 68.182 kg Dosing Weight Difference Percent -8.256 % Dosing Weight Collection Method Estimated Body Surface Area 1.6847 m2 Body Mass Index 30.36 m2 , Vital Signs (last 24 hrs) Last Charted Temp Oral98.0 DegF (MAY 14:) Heart Rate Bhimphbnol20 bpm (MAY 14:) Resp Rate 16 BRMIN (MAY 14) TSH506 mmHg (MAY 14) DBPL 54mmHg (MAY 14) SpO2L 90% (MAY 14) Intake and Output I/O Intake OutputBalance 05/13/20177a-3p 110.00 0.00 110.00 3p-11p 10.00 0.00 10.00 11p-7a 0.00 0.00 0.00 Totals 120.00 0.00 120.00 05/12/20177a-3p 1060.00 600.00 460.00 3p-11p 250.00 0.00 250.00 11p-7a 100.00 0.00 100.00 Totals 1410.00 600.00 810.00 General: Alert and oriented, No acute distress. Eye: Pupils are equal, round and reactive to light, Extraocular movements are intact. HENT: Normocephalic, Oral mucosa is moist. Neck: Supple, Non-tender, No jugular venous distention. Respiratory: Lungs are clear to auscultation, Respirations are non-labored, Breath sounds are equal, Symmetrical chest wall expansion. Cardiovascular: Normal rate, Regular rhythm, Good pulses equal in all extremities, Normal peripheral perfusion, No edema, grade 4/6 ejection systolic murmur over the RUSE, radiating to carotids and heard all over precordium. Gastrointestinal: Soft, Non-tender, Non-distended. Genitourinary: right groin access for cath with no hematoma, and good femoral pulse. Musculoskeletal Normal range of motion. Normal strength. No tenderness. Integumentary: Warm, D[place], Intact. Neurologic: Alert, Oriented, Normal motor function, No focal deficits. Psychiatric: Cooperative, Appropriate mood & affect, Normal judgment. Review / Management Results review: Labs (Last four charted values) WBC L 3.6(MAY 13)3.9(MAY 12)4.9(MAY 11)3.8(MAY 10) Hgb L 9.3(MAY 13)L 9.2(MAY 12)L 8.9(MAY 11)L 7.3(MAY 10) Hct L 29.6(MAY 13)L 29.2(MAY 12)L 28.4(MAY 11)L 23.6(MAY 10) Plt 198(MAY 13)185(MAY 12)198(MAY 11)157(MAY 10) Na 142(MAY 13)136(MAY 12)135(MAY 11)136(MAY 10) K 4.2(MAY 13)4.4(MAY 12)3.5(MAY 11)3.6(MAY 10) CO2 H 33(MAY 13)H 35(MAY 12)H 34(MAY 11)32(MAY 10) Cl 101(MAY 13)98(MAY 12)L 94(MAY 11)97(MAY 10) Cr 0.84(MAY 13)0.93(MAY 12)1.10(MAY 11)1.30(MAY 10) BUN H 23(MAY 13)21(MAY 12)17(MAY 11)16(MAY 10) Glucose Random H 114(MAY 13)H 124(MAY 12)H 141(MAY 11)H 223(MAY 10) Phos 3.0(MAY 13)2.7(MAY 12) Ca L 8.4(MAY 13)8.5(MAY 12)9.1(MAY 11)L 8.3(MAY 10) Troponin 0.14(MAY 09)<0.02(MAY 08) CK MB 0.9(MAY 09)0.6(MAY 08) Total CK 118(MAY 09)56(MAY 08). Impression and Plan 81 year old woman with hx of coronary artery disease s/p 2 vessel CABG in 2008 with EDWARDS to LAD, saphenous vein graft to 2nd marginal artery -last cath in 2014 showed patent grafts, with mild to moderate pulmonary hypertension, severe aortic stenosis( gradient of 37mmHg, TRELL of 0.7, velocity of 3.9ms) with EF of 55-60% on Echo in Apr 2017, atrial fibrillation,rhythm controlled on amiodarone, diabetes mellitus on insulin -a1c of 5.9%, chornic microcytic anemia of unknown etiology-suspected GI source, hypothyroidism on levothyroxine, Parkinson's disease and Alzhemier's disease. She is admitted for TAVR work up #Severe aortic stenosis-gradient of 37mmHg, TRELL of 0.7, velocity of 3.9ms on Echo 04/2017 -pending [facility] report -needs CT TAVR protocool, may need pre-contrast medications vs RAFITA -PFTs -Carotid doppler bilateral -avoid hypotension as pre-load dependent #Coronary artery disease s/p CABG -pending repeat [facility] report -no current chest pain -continue ASA, -no recent troponin leak #CHFwith preserved ejection fraction-EF of 55-60% -Ok to continue lasix 40 IV daily -Monitor electrolytes -home meds: lisinopril 20, metoprolol XL 25 OD, and imdur 30 ER OD -restart metoprolol and imdur. -restart as BP and HR tolerates #Atrial fibrillation-rate controlled, currently in sinus rhythm -CHADSVASC 6 -on amiodarone 200mg OD -not on anticoagulation -given current unexplained anemia/bleeding, defer to when patient is more stable #Chronic microcytic anemia -Hb of 9.3 s/p 3 units of blood and IV venofer infusion -secondary to iron deficiency -cause unknown-possible angiodysplasia -will monitor and contact GI if progressively increasing anemia #Diabetes melliltus on insulin-a1c of 5.9% -Lantus 20 units at night -SSI during the day #UTI secondary to E coli onrocephin -needs 7 days of antibiotics -due to multiple antibiotic allergies, to complete IV rocephin only, last dose tomorrow. #hypothyroidism -continue levothyroxine at home dose #Dispo -Needs Social work input -OT/PT input Code: Full DVT PPx: Needs heparin 5000 units q8h CCU/CIMU Daily Patient Safety Checklist Yes No Mechanical Ventilation? _ _X 1. Sedation level addressed? _ _ 2. Sedation holiday performed if indicated? _ _ 3. Adequate pain control? _ _ 4. Delirium assessment done and addressed? _ _ 5. Restraints assessed/reordered? _ _ 6. PUD ppx? _ _ Blood Stream Infection Prevention: X 1. Central Line necessity addressed? _ _ _ 2. Central Line duration > 5 days? _ _ CAUTI Prevention: X 1. Lang necessity addressed? _ _ _ 2. Lang duration > 3 days? _ _ DVT Prevention: 1. VTE Advisor Completed on admission? _X _ 2. DVT ppx? _X _ ambulation, on eliquis Nutrition 1. Enteral Feeding within 48h? _X _ Blood Glucose Control 1. 60 mg/dl< BG < 200mg/dl? _X _ CAD/CHF/PCI Requirements: 1. ASA post SC? _ _ N/A 2. ACEi + BB in CHF? _ _ N/A 3. Statin in CAD? _ _ 4. DAPT post-PCI? _ _ N/A 5. Renal Protection Fluid Protocol Post-PCI? _ _ N/A Discharge Planning 1. PT/OT? X _ pending final recs 2. Cardiac Rehab? _ _x 3. Case Management/Social Work Consult? X _ Addendum ATTENDING ADDENDUM by Emanuel, I have seen and examined the patient. Furthermore, I have reviewed the Kevin BUCIO resident's/fellow's note dated today, and I agree with the assessment and plan. I have on personally reviewed the laboratory results, radiology results, and tracings. 05/14/2017 Dr. Kevin Castellanos MD 21:02 #[id number] Extracted from: Title: Clinical Document Author: Maggie Kidd MD Date: 05/13/[address] Maggie Kidd SUBJECTIVE Seen at time of cath The patient has no new issues The patient denies chest pain, SOB, dizziness, palpitation or syncope No abdominal pain, fever or skin rash OBJECTIVE General: Not in apparent distress V/S: See below HEAD: Atraumatic, normocephalic. EYES: Extraocular movements intact. ENT: Moist mucosa. NECK: There is mild jugular venous distention. HEART: Regular rate and rhythm. There is a loud systolic murmur at the left sternal border radiating to the neck consistent with aortic stenosis. ABDOMEN: Soft, nontender. Bowel sounds are present. EXTREMITIES: No edema, clubbing. CENTRAL NERVOUS SYSTEM: Awake, alert x3. No gross focal neurological deficits. PSYCHIATRIC: Normal mood and affect. SKIN: No petechiae or rash. Telemetry- normal sinus rhythm ASSESSMENT AND PLAN: 1. Severe aortic stenosis. The heart catheter did show severe aortic stenosis with an aortic valve area of 0.[address] Castellanos who accepted the transfer to the [facility] for GLADIS 2. Chronic anemia. Dr. Mott, admitting Hospitalist, is to start her on a blood transfusion. 3. Acute on chronic diastolic congestive heart failure due to aortic stenosis. Euvolemic now 4. Coronary artery disease stable patent EDWARDS to LAD and patent saphenous venous graft to obtuse marginal branch. Mild to moderate diffuse RCA ,so no need for revascularization Vitals and Temp: VitalsTmp(F)YkbbzVZLJKvB7PDQ5 05/13 11:3397.758034/598388--- 05/13 08:693862668/424543--- 05/13 03:5097.592228/928040--- 05/12 23:5098.941240/629543--- 05/12 20:0098.074129/743634--- 24 Hr Tmax: 98F (36.67c) at 05/13 08:06Vital Signs are the last 5 in the past 48 hours. 24hr Labs 05/13 0928 POC Performing LocatioSee Note Glucose EEX131 H 05/13 0633 POC Performing LocatioSee Note Glucose MMH563 H 05/13 0359 Glucose Hkh834 H BUN23 H Creatinine Lvl0.84 Sodium Ikv317 Potassium Lvl4.2 Chloride Ntt348 CO233 H AGAP12.2 Calcium Lvl8.4 L Phosphorus3.0 Albumin Lvl3.0 L eGFR65 WBC3.6 L RBC3.93 L Hgb9.3 L Hct29.6 L MCV75.2 L MCH23.6 L MCHC31.4 L RDW21.1 H Wnasllwg455 MPV7.2 L Segs51.3 Monocytes9.1 Oibrwmwwerj97.1 Eosinophils1.1 Basophils0.4 Segs-Bands #1.9 Lymphocytes #1.4 Monocytes #0.3 Microcyte1+ 05/12 2016 POC Performing LocatioSee Note Glucose FFQ851 H 05/12 1835 Occult Bld StlPositive Medications (37) Active Scheduled: (15) AMIODarone 200 mg TAB 200 mg 1 tab, PO, Bedtime aspirin 81 mg CHEW TAB 81 mg 1 tab, PO, Q24H atorvastatin 40mg tab 40 mg 1 tab, PO, Bedtime cefTRIAXone 1 gm INJ VL + sodium chloride 0.9% INJ 100 mL 1 gm, IVPB, LKLK16F donepezil 5 mg TAB 10 mg 2 tab, PO, Bedtime famotidine 20 mg tab 20 mg 1 tab, PO, Q12H insulin GLARGINE 1 unit/0.01 mL INJ SYR 20 unit 0.2 mL, SUB-Q, Bedtime iron sucrose 20mg/ml INJ 5ml + sodium chloride 0.9% INJ 90 mL 200 mg 10 mL, IVPB, Daily isosorbide mononitrate 30 mg ERT 30 mg 1 tab, PO, Bedtime levothyroxine 150 microgram TAB 150 microgram 1 tab, PO, Q630AM metoprolol succinate 25 mg ERT 25 mg 1 tab, PO, Daily montelukast 10 mg TAB 10 mg 1 tab, PO, Bedtime pantoprazole 40 mg ECT 40 mg 1 tab, PO, Before Breakfast sodium chloride 0.9% 10 ml flush syr BD 10 ml, IVP, Q12H venlafaxine 150 mg ERC (XR) 150 mg 1 cap, PO, Bedtime Continuous: (2) sodium chloride 0.9% 1000 ml INJ 1,000 mL 1,000 mL, IV, 75 ml/hr sodium chloride 0.9% 1000 ml INJ 1,000 mL 1,000 mL, IV, 75 ml/hr PRN: (20) acetaminophen 325 mg TABLET 650 mg 2 tab, PO, Q6H acetaminophen-hydrocodone 325 mg-5 mg tab 1 tab, PO, Q6H ALPRAZolam 0.5 mg TAB 0.5 mg 1 tab, PO, BID Dextrose 50% 50 ml INJ syringe 12.5 gm 25 mL, IVP, PRN Dextrose 50% 50 ml INJ syringe 25 gm 50 mL, IVP, PRN glucagon recombinant 1 mg PDR 1 mg, IM, PRN hydrOXYzine pamoate 25 mg CAP 25 mg 1 cap, PO, Q6H insulin lispro 100 unit/ml 3 ml Pen 2 unit 0.02 mL, SUB-Q, TID-Before Meals insulin lispro 100 unit/ml 3 ml Pen 4 unit 0.04 mL, SUB-Q, TID-Before Meals insulin lispro 100 unit/ml 3 ml Pen 6 unit 0.06 mL, SUB-Q, TID-Before Meals insulin lispro 100 unit/ml 3 ml Pen 8 unit 0.08 mL, SUB-Q, TID-Before Meals insulin lispro 100 unit/ml 3 ml Pen 10 unit 0.1 mL, SUB-Q, TID-Before Meals insulin lispro 100 unit/ml 3 ml Pen 1 unit 0.01 mL, SUB-Q, Bedtime insulin lispro 100 unit/ml 3 ml Pen 2 unit 0.02 mL, SUB-Q, Bedtime insulin lispro 100 unit/ml 3 ml Pen 3 unit 0.03 mL, SUB-Q, Bedtime insulin lispro 100 unit/ml 3 ml Pen 4 unit 0.04 mL, SUB-Q, Bedtime nitroglycerin 0.4 mg TAB 25's btl 0.4 mg 1 tab, SL, Q5Min ondansetron 4 mg TAB 4 mg 1 tab, PO, Q8H rOPINIRole 1 mg TAB 1 mg 1 tab, PO, BID sodium chloride 0.9% 10 ml flush syr BD 10 ml, IVP, PRN Extracted from: Title: Discharge Summary * Author: Nick Mott MD Date: 05/13/17 Discharge Information Disposition: Transfer to [facility] Condition: Stable Medications: See med reconciliation form Diet: Diabetic [place]charge Plan [place] [facility] [place] In evaluating worsening symptoms patient was come back to the ED for further evaluation Discharge summary took greater than 35 minutes Extracted from: Title: Clinical Document Author: Robbi Palacios MD Date: 05/12/17 Consult Note Gastroenterology and Hepatology Reason for Consult: Severe iron deficiency anemia Referring physician: NICK MOTT M.D. IMPRESSION: Chronic recurrent iron deficiency anemia-suspect chronic GI blood loss; possibly angiodysplasia and small bowel associated with her aortic stenosis; status post transfusion Chest pain/angina/CHF stable Severe aortic stenosis Mild GERD Diverticulosis coli Unexplained weight loss E. coli UTI on treatment. RECOMMENDATIONS AND PLAN: Await completion of cardiology assessment and then decide on whether or not to proceed with repeat EGD colonoscopy which was discussed with patient and spouse at length, depending on risk for sedation. Continue PPI interim. CT scan of abdomen /pelvis recommended to assess for intra-abdominal mass lesion, oral contrast, however will defer until after cardiac cath this may interfere with the abdominal vascular images obtained Obtain stool occult blood. Further recommendations based on progress. Thank you for asking us to participate in the care of your patient HPI: This is an 81-year-old female with a history of severe aortic stenosis, prior presentations with iron deficiency anemia requiring blood transfusions, negative GI workup in the past (EGD showing erosive gastritis, colonoscopy suboptimally prepped, diverticulosis noted 12/2014), hypertension, atrial fibrillation, chronic obstructive pulmonary disease, asthma, coronary artery disease, diabetes, presented with few days history of particularly exertion related retrosternal, pressure heaviness like chest pain radiating to the left upper extremity associated with lightheadedness, extreme weakness, fatigue, dyspnea and palpitations. She was diagnosed with CHF and responded to diuresis. Denies having any nausea, vomiting or diaphoresis. At admission her hemoglobin was 6.9 MCV 7 0.8 WBC 6.4 platelets 161 and she has been transfused up to hemoglobin 9.2. Also received iron infusion. Hematinics showed iron saturation 7%, ferritin 28. Reticulocyte count 2.4. Electrolytes were normal, blood glucose elevated, EGFR is between 39 and 58. LFTs were normal. BNP 373. Also reported a fever at admission, though not recorded here, has been diagnosed with E. coli UTI and is on Rocephin. UA showed 4 RBC per high-power field. Patient has been assessed by the hematology service as well as cardiology. Aortic stenosis appears to have progressed. She is to undergo cardiac catheterization to assess vessels and valve before deciding on intervention. Patient has a history of mild GERD. Denies NSAID use or history of peptic ulcer disease. She denies any odynophagia dysphagia or loss of appetite. Bowel movements are fairly regular. Has not seen david blood in stool or had any other overt bleeding. She does report a approximately 40 pound unintentional weight loss over the past year. PMH: Coronary artery disease. CHF. Severe aortic stenosis. History of Parkinson's disease Diabetes Hypertension Hyperlipidemia GERD Multiple episodes of iron deficiency anemia without acute GI large-volume bleed Diverticulosis Recurrent UTIs. PSH: CAB01/14/10 Caesarean section: 08/19/60 Abdominal hysterectomy: 08/19/57 Cholecystectomy Back fusion Laparotomy for question small bowel segmental resection 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 Appendectomy PSYCHO-SOCIAL: Employment/School Retired Sexual Details: Sexually active: No. Alcohol Details: Never Exercise Details: Exercise duration: 0.; Comment(s): up to the bathroom. Tobacco Details: Use: Former smoker. Type: Cigarettes. Tobacco smoke exposure: None. Did the Patient Smoke Cigarettes Anytime During the Last 365 Days? No. Cessation Counseling Provided? No.; Comment(s): pt quit 33 yrs ago Substance Abuse Details: Use: None. FAMILY HISTORY: Father: Leukemia Mother: Osteoarthritis Sister: Cystic fibrosis. Medication List Home medications noted. Active Medications Ordered acetaminophen: 650 mg, 2 tab, PO, Q6H, PRN: Pain Score 1-3. acetaminophen-hydrocodone: 1 tab, PO, Q6H, PRN: Pain Score 1-3. ALPRAZOLam: 0.5 mg, 1 tab, PO, BID, PRN: Anxiety. AMIODarone: 200 mg, 1 tab, PO, Bedtime. aspirin: 81 mg, 1 tab, PO, Q24H. atorvastatin: 40 mg, 1 tab, PO, Bedtime. cefTRIAXone + sodium chloride 0.9% INJ 100 mL: 1 gm, 200 ml/hr, IVPB, [id number]. Dextrose 50% in Water IV: 12.5 gm, 25 mL, IVP, PRN, PRN: Blood Glucose Results. Dextrose 50% in Water IV: 25 gm, 50 mL, IVP, PRN, PRN: Blood Glucose Results. donepezil: 10 mg, 2 tab, PO, Bedtime. glucagon: 1 mg, IM, PRN, PRN: Blood Glucose Results. hydrOXYzine: 25 mg, 1 cap, PO, Q6H, PRN: Itching. insulin glargine: 20 unit, 0.2 mL, 0 ml/hr, SUB-Q, Bedtime. insulin lispro: 8 unit, 0.08 mL, SUB-Q, TID-Before Meals, PRN: Blood Glucose Results. insulin lispro: 10 unit, 0.1 mL, SUB-Q, TID-Before Meals, PRN: Blood Glucose Results. insulin lispro: 1 unit, 0.01 mL, SUB-Q, Bedtime, PRN: Blood Glucose Results. insulin lispro: 2 unit, 0.02 mL, SUB-Q, Bedtime, PRN: Blood Glucose Results. insulin lispro: 3 unit, 0.03 mL, SUB-Q, Bedtime, PRN: Blood Glucose Results. insulin lispro: 4 unit, 0.04 mL, SUB-Q, Bedtime, PRN: Blood Glucose Results. insulin lispro: 2 unit, 0.02 mL, SUB-Q, TID-Before Meals, PRN: Blood Glucose Results. insulin lispro: 4 unit, 0.04 mL, SUB-Q, TID-Before Meals, PRN: Blood Glucose Results. insulin lispro: 6 unit, 0.06 mL, SUB-Q, TID-Before Meals, PRN: Blood Glucose Results. iron sucrose + sodium chloride 0.9% INJ 90 mL: 200 mg, 10 mL, 100 ml/hr, IVPB, Daily. isosorbide mononitrate: 30 mg, 1 tab, PO, Bedtime. levothyroxine: 150 microgram, 1 tab, PO, Q630AM. metoprolol: 25 mg, 1 tab, PO, Daily. montelukast: 10 mg, 1 tab, PO, Bedtime. nitroglycerin: 0.4 mg, 1 tab, SL, Q5Min, PRN: Chest Pain. ondansetron: 4 mg, 1 tab, PO, Q8H, PRN: Nausea & Vomiting. phenazopyridine: 200 mg, 2 tab, PO, TID-After Meals. rOPINIRole: 1 mg, 1 tab, PO, BID, PRN: Leg Cramps. sodium chloride: 10 mL, IVP, PRN, PRN: Line Flush. sodium chloride: 10 ml, IVP, Q12H. sodium chloride: 10 ml, IVP, PRN, PRN: Line Flush. venlafaxine: 150 mg, 1 cap, PO, Bedtime. Suspended acetaminophen: 650 mg, PO, Q6H, PRN: Pain 1-3/Temp > 100.4 F, 0 Refill(s). ALPRAZOLam: 0.5 mg, 1 tab, PO, BID, for 30 day, PRN: Anxiety, 60 tab, 0 Refill(s). AMIODarone: 200 mg, 1 tab, PO, Bedtime, 0 Refill(s). atorvastatin: 40 mg, 1 tab, PO, Bedtime, 0 Refill(s). betamethasone-clotrimazole topical: 1 appl, TOP, BID, for 14 day, PRN: Apply to affected areas, 45 gm, 1 Refill(s). diphenhydrAMINE: 25 mg, 1 tab, PO, BID, 0 Refill(s). donepezil: 10 mg, 1 tab, PO, Bedtime, 0 Refill(s). gabapentin: 300 mg, 1 cap, PO, BID, 0 Refill(s). hydrochlorothiazide: 12.5 mg, PO, Every Other Day, 0 Refill(s). insulin aspart: 7 unit, SUB-Q, Before Breakfast, 0 Refill(s). insulin glargine: 20 unit, SUB-Q, Bedtime, 0 Refill(s). isosorbide mononitrate: 30 mg, 1 tab, PO, Bedtime, 0 Refill(s). levothyroxine: 150 microgram, 1 tab, PO, Daily, 90 tab, 1 Refill(s). lisinopril: 20 mg, 1 tab, PO, Daily, for 30 day, 30 tab, 4 Refill(s). metoprolol: 25 mg, 1 tab, PO, Bedtime, 0 Refill(s). montelukast: 10 mg, 1 tab, PO, Bedtime, for 90 day, 90 tab, 1 Refill(s). nitroglycerin: 0.4 mg, 1 tab, SL, Q5Min, for 30 day, PRN: Chest Pain, 100 tab, 0 Refill(s). ranitidine: 150 mg, 1 tab, PO, BID, for 90 day, 180 tab, 0 Refill(s). venlafaxine: 150 mg, 1 cap, PO, Bedtime, for 90 day, 90 cap, 1 Refill(s). Medications Inactivated in the Last 72 Hours acetaminophen: 650 mg, 2 tab, PYXIS, ONCE. acetaminophen-codeine: 2 tab, PO, Q6H, for 7 day, PRN: for pain, 56 tab, 0 Refill(s). AMIODarone: 200 mg, 1 tab, PO, Daily, 90 tab, 3 Refill(s). atorvastatin: See Instructions, TAKE ONE TABLET BY MOUTH ONCE DAILY AT BEDTIME FOR 90 DAYS, 90 tab, 1 Refill(s). cefTRIAXone: 1 gm, IVPB, ONCE. cefTRIAXone: 1 gm, PYXIS, ONCE. cefTRIAXone: 1 gm, PYXIS, ONCE. cefTRIAXone: 1 gm, PYXIS, ONCE. cefTRIAXone: 1 gm, PYXIS, ONCE. donepezil: See Instructions, TAKE ONE TABLET BY MOUTH ONCE DAILY, 90 tab. furosemide: 40 mg, IVP, ONCE. furosemide: 40 mg, 4 mL, PYXIS, ONCE. furosemide: 40 mg, 4 mL, IV, Q12H. furosemide: 40 mg, 4 mL, IV, Q12H. gabapentin: 300 mg, 1 cap, PO, Daily, 90 cap, 1 Refill(s). hydrochlorothiazide: See Instructions, Take 1 tab twice a week, 30 tab, 1 Refill(s). insulin aspart: See Instructions, 5 unit SUB-Q after the largest meal, 1 box, 1 Refill(s). insulin glargine: See Instructions, 17 unit SUB-Q Bedtime, 2 box, 2 Refill(s). isosorbide mononitrate: See Instructions, TAKE ONE TABLET BY MOUTH AT BEDTIME, 90 tab, 1 Refill(s). LORazepam: 0.5 mg, 1 tab, PO, ONCE. LORazepam: 0.5 mg, PO, ONCE. LORazepam: 1 mg, 1 tab, PYXIS, ONCE. metoprolol: See Instructions, TAKE ONE TABLET BY MOUTH ONCE DAILY, 90 tab, 1 Refill(s). morphine Sulfate: 2 mg, 1 mL, IVP, Q15Min, PRN: Chest Pain. morphine Sulfate: 4 mg, 1 mL, PYXIS, ONCE. piperacillin-tazobactam: 3.375 gm, PYXIS, ONCE. sodium chloride 0.9% INJ 250 mL: 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, IV, Stop: 05/11/17 9:46:00 CDT. Sodium Chloride 0.9% IV: 100 mL, PYXIS, ONCE. Sodium Chloride 0.9% IV: 250 mL, PYXIS, ONCE. Sodium Chloride 0.9% IV: 100 mL, PYXIS, ONCE. Sodium Chloride 0.9% IV: 2,000 mL, PYXIS, ONCE. Sodium Chloride 0.9% IV: 100 mL, PYXIS, ONCE. Sodium Chloride 0.9% IV: 100 mL, PYXIS, ONCE. Sodium Chloride 0.9% IV: 100 mL, PYXIS, ONCE. Allergies: erythromycin, trimethoprim, cefuroxime, sulfa drugs, Iodine ASSISTED, penicillin, ciprofloxacin Review of Systems: NEGATIVE unless bold General: weight loss, loss of appetite, fever, chills, excessive malaise, fatigue, generalized weakness HEENT : recent change in vison, eye pain, diplopia, epistaxis, sinus pain, sore throat, throat pain, acute hearing loss, ear pain or discharge RESPIRATORY: shortness of breath, hemoptysis, cough, wheezing, pleuritic pains CVS: chest pain, palpitations, irregular herat beat, low extremity swelling, heart murmurs GI: see HPI : hematuria, dysuria, incontinence,urinary frequency, impaired urine flow. recurrent UTIs MS: acute arthritis, back pain, joint swelling, gout Neurological: acute altered mentation, headaches, recent seizures, falls, recent loss of consciousness, gait problems, focal limb weakness, numbness, tingling , paraesthesia Endocrine: polydypsia, polyuria, unusual hair loss Immunological/ Hematological; acute bleeding, easy bleeding or bruising, lymph node swelling, recurrent infections Psychiatric: hallucinations. psychosis, confusion, depression, suicidal ideation Integument: rash, jaundice, generalized Physical Examination: Vital signs as below. NAD; mild pallor HEENT: Fair dentition, EOMI, atraumatic, no asymmetry; neck restricted range of movement, no LN/ thyromegaly/ mass/faint bruit left side neck , JVD neg Chest: Bibasilar inspiratory rales, no rhonchi. Symmetrical expansion. Resonant to percussion Cardiac: regular rhythm, normal S1 and S2; 4/6 ejection systolic murmur aortic area. Displaced apex. Abdo: Soft, not distended, non-tender, obese, pannus, scars, no mass, no ascites, no hernia, normal BS, no bruits Ext: No cyanosis, clubbing; peripheral pulses palpable, trace lower extremity edema. Neuro: A and O x3, grossly intact cranial nerves; non-focal exam. MS: DJD changes of extremities, restricted spine mvt Recent Labs/Radiology reviewed VitalsTmp(F)[id number] 05/12 [id number]--- 05/12 [id number]--- 05/12 [id number]--- 05/11 [id number]--- 05/11 [id number]--- 24 Hr Tmax: 98.6F (37.00c) at 05/12 04:26Vital Signs are the last 5 in the past 48 hours. DateWt(kg)Wt(lb)Ht(cm)Ht(in)Method 05/11 74.32 163.50Measured 05/09 (initial) 72.73 160.00Estimated 49.86 59.00Stated Labs (Last four charted values) WBC 3.9(MAY 12)4.9(MAY 11)3.8(MAY 10)6.5(MAY 09) Hgb L 9.2(MAY 12)L 8.9(MAY 11)L 7.3(MAY 10)L 7.5(MAY 09) Hct L 29.2(MAY 12)L 28.4(MAY 11)L 23.6(MAY 10)L 24.2(MAY 09) Plt 185(MAY 12)198(MAY 11)157(MAY 10)152(MAY 09) Na 136(MAY 12)135(MAY 11)136(MAY 10)138(MAY 09) K 4.4(MAY 12)3.5(MAY 11)3.6(MAY 10)3.9(MAY 09) CO2 H 35(MAY 12)H 34(MAY 11)32(MAY 10)30(MAY 09) Cl 98(MAY 12)L 94(MAY 11)97(MAY 10)100(MAY 09) Cr 0.93(MAY 12)1.10(MAY 11)1.30(MAY 10)0.93(MAY 09) BUN 21(MAY 12)17(MAY 11)16(MAY 10)13(MAY 09) Glucose Random H 124(MAY 12)H 141(MAY 11)H 223(MAY 10)H 138(MAY 09) Phos 2.7(MAY 12) Ca 8.5(MAY 12)9.1(MAY 11)L 8.3(MAY 10)L 8.4(MAY 09) Troponin 0.14(MAY 09)<0.02(MAY 08) CK MB 0.9(MAY 09)0.6(MAY 08) Total CK 118(MAY 09)56(MAY 08)
--- OUTSIDE RECORDS SUMMARY | 2018-08-13 18:27 | XMS REPORT | Summary of Care ---
Author Author [facility] Organization [facility] Address Unknown Phone Unavailable Encounter TREVON Frias(KIRSTIE) [phone] Date(s): 06/14/17 - 06/18/17 [facility] [address] [employer] provided by [facility] [place] [address]- Discharge Disposition: Home or Self Care Attending Physician: Kevin Castellanos MD Admitting Physician: Kevin Castellanos MD Referring Physician: Mani White MD Vital Signs 1 2 3 Most recent to oldest [Reference Range]: 149.86 cm (06/14/17 4:55 PM) Height 98.7 DegF (06/18/17 8:50 AM) 98.4 DegF (06/18/17 5:08 AM) 98.2 DegF (06/18/17 12:45 AM) Temperature Oral [96.4-99.1 DegF] 149/79 mmHg *HI* (06/18/17 8:50 AM) 125/42 mmHg (06/18/17 5:08 AM) 117/69 mmHg (06/18/17 12:45 AM) Blood Pressure [90-140/60-90 mmHg] 20 BRMIN (06/18/17 5:08 AM) 20 BRMIN (06/18/17 12:45 AM) 20 BRMIN (06/17/17 7:45 PM) Respiratory Rate [14-20 BRMIN] 55 bpm *LOW* (06/18/17 5:08 AM) 58 bpm *LOW* (06/18/17 12:45 AM) 60 bpm (06/17/17 7:45 PM) Peripheral Pulse Rate [60-100 bpm] 68.409 kg (06/14/17 4:55 PM) Weight 30.46 m2 (06/14/17 4:55 PM) Body Mass Index Problem List Condition [...] sulfa drugs Active trimethoprim Active Medications AMIODarone 200 mg, 1 tab, Route: PO, Drug form: TAB, Bedtime, Dosing Weight 68.409, kg, Sta rt date: 06/15/17 21:00:00 CDT, Duration: 30 day, Stop date: 07/14/17 21:00:[address] Notes: (Same as: Cordarone) Start Date: 06/15/17 Stop Date: 06/18/17 Status: Discontinued AMIODarone 200 mg oral tablet 200 mg=1 tab, PO, Bedtime, # 30 tab, 0 Refill(s) Start Date: 06/18/17 Stop Date: 07/18/17 Status: Ordered aspirin 81 mg tablet, enteric coated 81 mg, 1 tab, Route: PO, Drug form: ECTAB, Daily, Dosing Weight 68.409, kg, Star t date: 06/15/17 9:00:00 CDT, Duration: 30 day, Stop date: 07/14/17 9:00:00 SAND MIXER OPERATOR Notes: Do not crush or chew.(Same As: Ecotrin) Start Date: 06/15/17 Stop Date: 06/18/17 Status: Discontinued aspirin 81 mg tablet, enteric coated 81 mg=1 tab, PO, Daily, # 30 tab, 0 Refill(s) Start Date: 06/18/17 Stop Date: 07/18/17 Status: Ordered atorvastatin 40 mg, 1 tab, Route: PO, Drug form: TAB, Bedtime, Dosing Weight 68.409, kg, Star t date: 06/15/17 21:00:00 CDT, Duration: 30 day, Stop date: 07/14/17 21:00:00 CS T Notes: (Same as: Lipitor) Start Date: 06/15/17 Stop Date: 06/18/17 Status: Discontinued atorvastatin 40 mg oral tablet 40 mg=1 tab, PO, Bedtime, # 30 tab, 0 Refill(s) Start Date: 06/18/17 Stop Date: 07/18/17 Status: Ordered clopidogrel 75 mg, 1 tab, Route: PO, Drug form: TAB, Daily, Dosing Weight 68.409, kg, Start date: 06/15/17 9:00:00 CDT, Duration: 30 day, Stop date: 07/14/17 9:00:00 SAND MIXER OPERATOR Notes: (Same As: Plavix) Start Date: 06/15/17 Stop Date: 06/18/17 Status: Discontinued clopidogrel 75 mg oral tablet 75 mg=1 tab, PO, Daily, # 30 tab, 0 Refill(s) Start Date: 06/18/17 Stop Date: 07/18/17 Status: Ordered Dextrose 50% Syringe 50 mL, Route: IVP, Dosing Weight 68.409, kg, PRN, PRN Blood Glucose Results, Sta rt date: 06/16/17 7:38:00 CDT, Duration: 30 day, Stop date: 07/16/17 6:37:00 SAND MIXER OPERATOR Start Date: 06/16/17 Stop Date: 06/16/17 Status: Discontinued Dextrose 50% Syringe 25 mL, Route: IVP, Dosing Weight 68.409, kg, PRN, PRN Blood Glucose Results, Sta rt date: 06/16/17 7:38:00 CDT, Duration: 30 day, Stop date: 07/16/17 6:37:00 SAND MIXER OPERATOR Start Date: 06/16/17 Stop Date: 06/16/17 Status: Discontinued Dextrose 50% Syringe 12.5 gm, 25 mL, Route: IVP, Drug Form: INJ, Dosing Weight 68.409, kg, PRN, PRN B lood Glucose Results, Start date: 06/15/17 2:13:00 CDT, Duration: 30 day, Stop d ate: 07/15/17 1:12:00 SAND MIXER OPERATOR Start Date: 06/15/17 Stop Date: 06/18/17 Status: Discontinued Dextrose 50% Syringe 25 gm, 50 mL, Route: IVP, Drug Form: INJ, Dosing Weight 68.409, kg, PRN, PRN Blo od Glucose Results, Start date: 06/15/17 2:13:00 CDT, Duration: 30 day, Stop joseluis e: 07/15/17 1:12:00 SAND MIXER OPERATOR Start Date: 06/15/17 Stop Date: 06/18/17 Status: Discontinued docusate 100 mg, 1 cap, Route: PO, Drug form: CAP, BID, Dosing Weight 68.409, kg, Start d ate: 06/15/17 9:00:00 CDT, Duration: 30 day, Stop date: 07/14/17 17:00:00 SAND MIXER OPERATOR Notes: (Same as: Colace) (Do Not Crush) Start Date: 06/15/17 Stop Date: 06/18/17 Status: Discontinued donepezil 10 mg, 2 tab, Route: PO, Drug form: TAB, Bedtime, Dosing Weight 68.409, kg, Star t date: 06/15/17 21:00:00 CDT, Duration: 30 day, Stop date: 07/14/17 21:00:00 CS T Notes: (Same as: Aricept) Start Date: 06/15/17 Stop Date: 06/18/17 Status: Discontinued Effexor XR 150 mg, 1 cap, Route: PO, Drug form: ERCAP, Bedtime, Dosing Weight 68.409, kg, S tart date: 06/15/17 21:00:00 CDT, Duration: 30 day, Stop date: 07/14/17 21:00:00 SAND MIXER OPERATOR Notes: Do not open, crush, or chew. (Same As: Effexor XR) Start Date: 06/15/17 Stop Date: 06/18/17 Status: Discontinued gabapentin 300 mg oral capsule 300 mg, 1 cap, Route: PO, Drug form: CAP, BID, Dosing Weight 68.409, kg, Start d ate: 06/15/17 9:00:00 CDT, Duration: 30 day, Stop date: 07/14/17 17:00:00 SAND MIXER OPERATOR Notes: (Same as: Neurontin) Start Date: 06/15/17 Stop Date: 06/17/17 Status: Discontinued glucagon 1 mg, Route: IM, PRN, Dosing Weight 68.409, kg, PRN Blood Glucose Results, Start date: 06/16/17 7:38:00 CDT, Duration: 30 day, Stop date: 07/16/17 6:37:00 SAND MIXER OPERATOR Start Date: 06/16/17 Stop Date: 06/16/17 Status: Discontinued glucagon 1 mg, Route: IM, Drug form: PDR/INJ, PRN, Dosing Weight 68.409, kg, PRN Blood Gl ucose Results, Start date: 06/15/17 2:13:00 CDT, Duration: 30 day, Stop date: 1:12:00 SAND MIXER OPERATOR Start Date: 06/15/17 Stop Date: 06/18/17 Status: Discontinued heparin 5,000 unit, 1 mL, Route: SUB-Q, Drug form: INJ, Q8H, Dosing Weight 68.409, kg, S tart date: 06/15/17 8:00:00 CDT, Duration: 30 day, Stop date: 07/15/17 0:00:[address] Notes: porcine heparin Start Date: 06/15/17 Stop Date: 06/18/17 Status: Discontinued insulin glargine 20 unit, 0.2 mL, Route: SUB-Q, Drug form: SOLN, Bedtime, Dosing Weight 68.409, k g, Start date: 06/15/17 21:00:00 CDT, Duration: 30 day, Stop date: 07/14/17 21:0 0:00 SAND MIXER OPERATOR Notes: Same as: Lantus)Do not hold insulin without contacting prescriberWASTE: F /P - Black; E - Municipal Trash Bin Start Date: 06/15/17 Stop Date: 06/18/17 Status: Discontinued insulin lispro 4 unit, Route: SUB-Q, TID-Before Meals, Dosing Weight 68.409, kg, PRN Blood Gluc ose Results, Start date: 06/16/17 7:38:00 CDT, Duration: 30 day, Stop date: 06/20 04/04 7:37:00 SAND MIXER OPERATOR Start Date: 06/16/17 Stop Date: 06/16/17 Status: Discontinued insulin lispro 5 unit, Route: SUB-Q, TID-Before Meals, Dosing Weight 68.409, kg, PRN Blood Gluc ose Results, Start date: 06/16/17 7:38:00 CDT, Duration: 30 day, Stop date: 06/20 04/04 7:37:00 SAND MIXER OPERATOR Start Date: 06/16/17 Stop Date: 06/16/17 Status: Discontinued insulin lispro 2 unit, Route: SUB-Q, TID-Before Meals, Dosing Weight 68.409, kg, PRN Blood Gluc ose Results, Start date: 06/16/17 7:38:00 CDT, Duration: 30 day, Stop date: 06/20 04/04 7:37:00 SAND MIXER OPERATOR Start Date: 06/16/17 Stop Date: 06/16/17 Status: Discontinued insulin lispro 3 unit, Route: SUB-Q, TID-Before Meals, Dosing Weight 68.409, kg, PRN Blood Gluc ose Results, Start date: 06/16/17 7:38:00 CDT, Duration: 30 day, Stop date: 06/20 04/04 7:37:00 SAND MIXER OPERATOR Start Date: 06/16/17 Stop Date: 06/16/17 Status: Discontinued insulin lispro 1 unit, Route: SUB-Q, TID-Before Meals, Dosing Weight 68.409, kg, PRN Blood Gluc ose Results, Start date: 06/16/17 7:38:00 CDT, Duration: 30 day, Stop date: 06/20 04/04 7:37:00 SAND MIXER OPERATOR Start Date: 06/16/17 Stop Date: 06/16/17 Status: Discontinued insulin lispro 4 unit, 0.04 mL, Route: SUB-Q, Drug form: SOLN, TID-Before Meals, Dosing Weight 68.409, kg, PRN Blood Glucose Results, Start date: 06/15/17 2:13:00 CDT, Duratio n: 30 day, Stop date: 07/15/17 2:12:00 SAND MIXER OPERATOR Notes: (Same as: Humalog ) Roll in palms of hands gently; Do not shake `vigorou sly. "Single Patient Use Only " (Restricted to patients requiring a dose > 60 units)WASTE: F/P - Black; E - Municipal Trash Bin Stable for 28 days at room temperature.Expires in days from Date Start Date: 06/15/17 Stop Date: 06/18/17 Status: Discontinued insulin lispro 5 unit, 0.05 mL, Route: SUB-Q, Drug form: SOLN, TID-Before Meals, Dosing Weight 68.409, kg, PRN Blood Glucose Results, Start date: 06/15/17 2:13:00 CDT, Duratio n: 30 day, Stop date: 07/15/17 2:12:00 SAND MIXER OPERATOR Notes: (Same as: Humalog ) Roll in palms of hands gently; Do not shake `vigorou sly. "Single Patient Use Only " (Restricted to patients requiring a dose > 60 units)WASTE: F/P - Black; E - Municipal Trash Bin Stable for 28 days at room temperature.Expires in days from Date Start Date: 06/15/17 Stop Date: 06/18/17 Status: Discontinued insulin lispro 3 unit, 0.03 mL, Route: SUB-Q, Drug form: SOLN, TID-Before Meals, Dosing Weight 68.409, kg, Start date: 06/15/17 7:30:00 CDT, Duration: 30 day, Stop date: 07/14 16:30:00 SAND MIXER OPERATOR Notes: (Same as: Humalog ) Roll in palms of hands gently; Do not shake `vigorou sly. "Single Patient Use Only " (Restricted to patients requiring a dose > 60 units)WASTE: F/P - Black; E - Municipal Trash Bin Stable for 28 days at room temperature.Expires in days from Date Start Date: 06/15/17 Stop Date: 06/18/17 Status: Discontinued insulin lispro 3 unit, 0.03 mL, Route: SUB-Q, Drug form: SOLN, TID-Before Meals, Dosing Weight 68.409, kg, PRN Blood Glucose Results, Start date: 06/15/17 2:13:00 CDT, Duratio n: 30 day, Stop date: 07/15/17 2:12:00 SAND MIXER OPERATOR Notes: (Same as: Humalog ) Roll in palms of hands gently; Do not shake `vigorou sly. "Single Patient Use Only " (Restricted to patients requiring a dose > 60 units)WASTE: F/P - Black; E - Municipal Trash Bin Stable for 28 days at room temperature.Expires in days from Date Start Date: 06/15/17 Stop Date: 06/18/17 Status: Discontinued insulin lispro 1 unit, 0.01 mL, Route: SUB-Q, Drug form: SOLN, TID-Before Meals, Dosing Weight 68.409, kg, PRN Blood Glucose Results, Start date: 06/15/17 2:13:00 CDT, Duratio n: 30 day, Stop date: 07/15/17 2:12:00 SAND MIXER OPERATOR Notes: (Same as: Humalog ) Roll in palms of hands gently; Do not shake `vigorou sly. "Single Patient Use Only " (Restricted to patients requiring a dose > 60 units)WASTE: F/P - Black; E - Municipal Trash Bin Stable for 28 days at room temperature.Expires in days from Date Start Date: 06/15/17 Stop Date: 06/18/17 Status: Discontinued insulin lispro 2 unit, 0.02 mL, Route: SUB-Q, Drug form: SOLN, TID-Before Meals, Dosing Weight 68.409, kg, PRN Blood Glucose Results, Start date: 06/15/17 2:13:00 CDT, Duratio n: 30 day, Stop date: 07/15/17 2:12:00 SAND MIXER OPERATOR Notes: (Same as: Humalog ) Roll in palms of hands gently; Do not shake `vigorou sly. "Single Patient Use Only " (Restricted to patients requiring a dose > 60 units)WASTE: F/P - Black; E - Municipal Trash Bin Stable for 28 days at room temperature.Expires in days from Date Start Date: 06/15/17 Stop Date: 06/18/17 Status: Discontinued Lantus Solostar Pen 100 units/mL subcutaneous solution 20 unit, 0.2 mL, Route: SUB-Q, Drug form: SOLN, Bedtime, Dosing Weight 68.409, k g, Start date: 06/15/17 21:00:00 CDT, Duration: 30 day, Stop date: 07/14/17 21:0 0:00 SAND MIXER OPERATOR Notes: Same as: Lantus)Do not hold insulin without contacting prescriberWASTE: F /P - Black; E - [employer] Bin Start Date: 06/15/17 Stop Date: 06/15/17 Status: Canceled levothyroxine 150 microgram, 1 tab, Route: PO, Drug form: TAB, Daily, Dosing Weight 68.409, kg , Start date: 06/15/17 9:00:00 CDT, Duration: 30 day, Stop date: 07/14/17 9:00:0 0 SAND MIXER OPERATOR Notes: Take 1 hour before or 2 hours after meal; Enteral feeds may interefere wi th the absorption of this medication. (Same as: Levothroid) Start Date: 06/15/17 Stop Date: 06/18/17 Status: Discontinued lisinopril 20 mg, 1 tab, Route: PO, Drug form: TAB, Daily, Dosing Weight 68.409, kg, Start date: 06/15/17 9:00:00 CDT, Duration: 30 day, Stop date: 07/14/17 9:00:00 SAND MIXER OPERATOR Notes: (Same as: Prinivil, Zestril) Start Date: 06/15/17 Stop Date: 06/18/17 Status: Discontinued lisinopril 20 mg oral tablet 20 mg=1 tab, PO, Daily, # 30 tab, 4 Refill(s), Lisinopril 20 mg Start Date: 06/18/17 Stop Date: 11/15/17 Status: Ordered metoprolol 25 mg oral tablet, extended release 25 mg=1 tab, PO, Daily, # 30 tab, 0 Refill(s) Start Date: 06/18/17 Stop Date: 07/18/17 Status: Ordered metoprolol extended release 25 mg, 1 tab, Route: PO, Drug form: ERTAB, Daily, Start date: 06/16/17 10:00:00 CDT, Duration: 30 day, Stop date: 07/16/17 9:00:00 SAND MIXER OPERATOR Notes: (Same as: Toprol XL) Do Not Crush Start Date: 06/16/17 Stop Date: 06/18/17 Status: Discontinued NovoLOG FlexPen 7 unit, Route: SUB-Q, Before Breakfast, Dosing Weight 68.409, kg, Start date: 7:30:00 CDT, Duration: 30 day, Stop date: 07/14/17 7:30:00 SAND MIXER OPERATOR Start Date: 06/15/17 Stop Date: 06/15/17 Status: Canceled pantoprazole 40 mg, 1 tab, Route: PO, Drug form: ECTAB, Daily, Dosing Weight 68.409, kg, Star t date: 06/15/17 9:00:00 CDT, Duration: 30 day, Stop date: 07/14/17 9:00:00 SAND MIXER OPERATOR Notes: Tablet should not be chewed or crushed.(Same as: Protonix) Start Date: 06/15/17 Stop Date: 06/18/17 Status: Discontinued pantoprazole 40 mg oral enteric coated tablet 40 mg=1 tab, PO, Daily, # 30 tab, 0 Refill(s) Start Date: 06/18/17 Stop Date: 07/18/17 Status: Ordered pneumococcal 13-valent vaccine 0.5 mL, Route: IM, Daily, Start date: 06/15/17 9:00:00 CDT, Duration: 1 doses or times, Stop date: 06/15/17 9:00:00 CDT Start Date: 06/15/17 Stop Date: 06/15/17 Status: Canceled pneumococcal 23-valent vaccine 0.5 mL, Route: IM, Drug Form: INJ, Daily, Start date: 06/15/17 9:00:00 CDT, Dura tion: 1 doses or times, Stop date: 06/15/17 9:00:00 CDT Notes: (Same as: Pneumovax 23) Refrigerate Start Date: 06/15/17 Stop Date: 06/15/17 Status: Completed ranitidine 150 mg oral tablet 150 mg, 1 tab, Route: PO, Drug form: TAB, BID, Dosing Weight 68.409, kg, Start d ate: 06/15/17 9:00:00 CDT, Duration: 30 day, Stop date: 07/14/17 17:00:00 SAND MIXER OPERATOR Notes: (Same as:Zantac)Non-Formulary Item Take before or with meals Start Date: 06/15/17 Stop Date: 06/18/17 Status: Discontinued Saline Flush 0.9% 10 ml, Route: IVP, Drug Form: INJ, Dosing Weight 68.409, kg, PRN, PRN Line Flush , Start date: 06/15/17 0:06:00 CDT, Duration: 30 day, Stop date: 07/14/17 23:05: 00 SAND MIXER OPERATOR Notes: (Same as: BD Posiflush) Start Date: 06/15/17 Stop Date: 06/18/17 Status: Discontinued sodium chloride 0.9% INJ 250 mL 250 mL, Rate: on call pharmacy technician for use with blood product administration, Dosing Weight 6 8.409, kg, Route: IV, Total Volume: 250, Start Date: 06/15/17 0:30:00 CDT, Durat ion: 30 day, Stop date: 07/15/17 0:29:00 SAND MIXER OPERATOR, Replace Every: 24 hr Start Date: 06/15/17 Stop Date: 06/18/17 Status: Discontinued Tylenol 325 mg, 1 tab, Route: PO, Drug form: TAB, Q6H, Dosing Weight 68.409, kg, PRN Roger n Score 1-3, Start date: 06/15/17 7:50:00 CDT, Duration: 30 day, Stop date: 06/20 03/04 7:49:00 SAND MIXER OPERATOR Notes: Do not exceed 4 gm/day. (Same as: Tylenol) Start Date: 06/15/17 Stop Date: 06/18/17 Status: Discontinued Results BLOOD BANK RESULTS 1 2 3 Most recent to oldest [Reference Range]: A POS *Unknown* (06/15/17 1:07 AM) ABO/Rh Negative (06/15/17 1:07 AM) Antibody Scrn Product available (06/15/17 12:30 AM) RBC product ELECTROLYTES 1 2 3 Most recent to oldest [Reference Range]: 140 mEq/L (06/18/17 4:54 AM) 140 mEq/L (06/17/17 4:05 AM) 140 mEq/L (06/16/17 5:42 AM) Sodium Lvl [135-145 mEq/L] 4.1 mEq/L (06/18/17 4:54 AM) 4.3 mEq/L (06/17/17 4:05 AM) 3.9 mEq/L (06/16/17 5:42 AM) Potassium Lvl [3.5-5.1 mEq/L] 103 mEq/L (06/18/17 4:54 AM) 104 mEq/L (06/17/17 4:05 AM) 103 mEq/L (06/16/17 5:42 AM) Chloride Lvl [95-109 mEq/L] 28 mEq/L (06/18/17 4:54 AM) 28 mEq/L (06/17/17 4:05 AM) 32 mEq/L (06/16/17 5:42 AM) CO2 [24-32 mEq/L] 13.1 mEq/L (06/18/17 4:54 AM) 12.3 mEq/L (06/17/17 4:05 AM) 8.9 mEq/L *LOW* (06/16/17 5:42 AM) AGAP [10.0-20.0 mEq/L] CHEM PANEL 1 2 3 Most recent to oldest [Reference Range]: 0.88 mg/dL (06/18/17 4:54 AM) 0.92 mg/dL (06/17/17 4:05 AM) 0.89 mg/dL (06/16/17 5:42 AM) Creatinine Lvl [0.50-1.40 mg/dL] 61 mL/min/1.73m2 1 *NA* (06/18/17 4:54 AM) 58 mL/min/1.73m2 2 *NA* (06/17/17 4:05 AM) 60 mL/min/1.73m2 3 *NA* (06/16/17 5:42 AM) eGFR 26 mg/dL *HI* (06/18/17 4:54 AM) 17 mg/dL (06/17/17 4:05 AM) 16 mg/dL (06/16/17 5:42 AM) BUN [7-22 mg/dL] 131 mg/dL *HI* (06/18/17 4:54 AM) 122 mg/dL *HI* (06/17/17 4:05 AM) 173 mg/dL *HI* (06/16/17 5:42 AM) Glucose Lvl [70-99 mg/dL] 8.9 mg/dL (06/18/17 4:54 AM) 9.2 mg/dL (06/17/17 4:05 AM) 9.6 mg/dL (06/16/17 5:42 AM) Calcium Lvl [8.5-10.5 mg/dL] 3.0 mg/dL (06/18/17 4:54 AM) 3.1 mg/dL (06/17/17 4:05 AM) 2.3 mg/dL *LOW* (06/16/17 5:42 AM) Phosphorus [2.5-4.5 mg/dL] 2.5 mg/dL *HI* (06/18/17 4:54 AM) 2.5 mg/dL *HI* (06/17/17 4:05 AM) 2.4 mg/dL (06/16/17 5:42 AM) Magnesium Lvl [1.8-2.4 mg/dL] 1Result Comment: The eGFR is calculated [...] be mul tiplied by the estimated BMI. SPECIAL CHEMISTRY 1 2 3 Most recent to oldest [Reference Range]: 5.3 % (06/16/17 12:20 PM) Hgb A1C [<=5.6 %] ANEMIA STUDY 1 2 3 Most recent to oldest [Reference Range]: 341 ug/dl *HI* (06/16/17 5:42 AM) Iron [30-160 ug/dl] 322 ng/mL *HI* (06/16/17 5:42 AM) Ferritin Lvl [5-204 ng/mL] 95 % *HI* (06/16/17 5:42 AM) % Satur Fe [12-57 %] 17 ug/dl *LOW* (06/16/17 5:42 AM) UIBC [110-370 ug/dl] 224 pg/mL *LOW* (06/16/17 5:42 AM) Vitamin B12 Lvl [254-1320 pg/mL] 7.2 ng/mL (06/16/17 5:42 AM) Folate Lvl [>=3.0 ng/mL] 358 ug/dl (06/16/17 5:42 AM) TIBC [228-428 ug/dl] 272 mg/dL (06/16/17 5:42 AM) Transferrin [212-360 mg/dL] PARATHYROID PROFILE 1 2 3 Most recent to oldest [Reference Range]: 1.16 mMol/L (06/15/17 1:07 AM) Ca Ion WB [1.05-1.25 mMol/L] 1.14 mMol/L (06/15/17 1:07 AM) Ca Norm WB [1.05-1.25 mMol/L] HEMATOLOGY 1 2 3 Most recent to oldest [Reference Range]: 3.2 K/CMM *LOW* (06/18/17 4:54 AM) 3.2 K/CMM *LOW* (06/17/17 4:05 AM) 3.4 K/CMM *LOW* (06/16/17 5:42 AM) WBC [3.7-10.4 K/CMM] 3.05 M/CMM *LOW* (06/18/17 4:54 AM) 3.03 M/CMM *LOW* (06/17/17 4:05 AM) 3.46 M/CMM *LOW* (06/16/17 5:42 AM) RBC [4.20-5.40 M/CMM] 9.6 g/dL *LOW* (06/18/17 4:54 AM) 9.4 g/dL *LOW* (06/17/17 4:05 AM) 10.7 g/dL *LOW* (06/16/17 5:42 AM) Hgb [12.0-16.0 g/dL] 29.1 % *LOW* (06/18/17 4:54 AM) 28.5 % *LOW* (06/17/17 4:05 AM) 32.7 % *LOW* (06/16/17 5:42 AM) Hct [36.0-48.0 %] 95.5 fL (06/18/17 4:54 AM) 94.0 fL (06/17/17 4:05 AM) 94.7 fL (06/16/17 5:42 AM) MCV [80.0-98.0 fL] 31.6 pg *HI* (06/18/17 4:54 AM) 31.0 pg (06/17/17 4:05 AM) 31.0 pg (06/16/17 5:42 AM) MCH [27.0-31.0 pg] 33.1 g/dL (06/18/17 4:54 AM) 33.0 g/dL (06/17/17 4:05 AM) 32.7 g/dL (06/16/17 5:42 AM) MCHC [32.0-36.0 g/dL] 20.7 % *HI* (06/18/17 4:54 AM) 20.4 % *HI* (06/17/17 4:05 AM) 21.6 % *HI* (06/16/17 5:42 AM) RDW [11.5-14.5 %] 145 K/CMM (06/18/17 4:54 AM) 148 K/CMM (06/17/17 4:05 AM) 160 K/CMM (06/16/17 5:42 AM) Platelet [133-450 K/CMM] 6.9 fL *LOW* (06/18/17 4:54 AM) 6.9 fL *LOW* (06/17/17 4:05 AM) 7.1 fL *LOW* (06/16/17 5:42 AM) MPV [7.4-10.4 fL] 53.0 % (06/18/17 4:54 AM) 51.7 % (06/17/17 4:05 AM) 68.7 % (06/16/17 5:42 AM) Segs [45.0-75.0 %] 33.2 % (06/18/17 4:54 AM) 36.8 % (06/17/17 4:05 AM) 22.3 % (06/16/17 5:42 AM) Lymphocytes [20.0-40.0 %] 12.2 % *HI* (06/18/17 4:54 AM) 9.7 % (06/17/17 4:05 AM) 7.4 % (06/16/17 5:42 AM) Monocytes [2.0-12.0 %] 0.9 % (06/18/17 4:54 AM) 1.0 % (06/17/17 4:05 AM) 0.8 % (06/16/17 5:42 AM) Eosinophils [0.0-4.0 %] 0.7 % (06/18/17 4:54 AM) 0.8 % (06/17/17 4:05 AM) 0.8 % (06/16/17 5:42 AM) Basophils [0.0-1.0 %] 1.7 K/CMM (06/18/17 4:54 AM) 1.7 K/CMM (06/17/17 4:05 AM) 2.3 K/CMM (06/16/17 5:42 AM) Segs-Bands # [1.5-8.1 K/CMM] 1.1 K/CMM (06/18/17 4:54 AM) 1.2 K/CMM (06/17/17 4:05 AM) 0.8 K/CMM *LOW* (06/16/17 5:42 AM) Lymphocytes # [1.0-5.5 K/CMM] 0.4 K/CMM (06/18/17 4:54 AM) 0.3 K/CMM (06/17/17 4:05 AM) 0.3 K/CMM (06/16/17 5:42 AM) Monocytes # [0.0-0.8 K/CMM] 1+ *ABN* (06/16/17 5:42 AM) 1+ *ABN* (06/15/17 1:07 AM) Anisocyte [None Seen] Immunizations Given and Recorded Vaccine Date Status Refusal Reason influenza virus vaccine, inactivated1 05/23/17 Given influenza virus vaccine, inactivated2 05/21/17 Given influenza virus vaccine, inactivated 06/22/16 Given influenza virus vaccine, inactivated 06/30/14 Given pneumococcal 13-valent vaccine3 03/11/14 Given pneumococcal 23-valent vaccine4 05/23/17 Given Not Given Vaccine Date Status Refusal Reason influenza virus vaccine, inactivated 05/25/17 Not Given Patient Refuses pneumococcal 23-valent vaccine 06/18/17 Not Given Patient Refuses 1Result Comment: changed her mind 2Result Comment: pt refused 3Admin Note: pt got it at [facility]=apr 2012 4Result Comment: changed her mind Procedures [...] ago Assessment and Plan Extracted from: Title: [facility] Discharge Summary Author: Sofia Thompson MD Date: 06/18/17 DISCHARGE SUMMARY Admission Date: 06/14/2017 Discharge Date: 06/18/2017 Admit Attending: Emanuel Discharge Attending: Jonathan Service: [facility] Admission Diagnosis: Anemia, Falls Discharge Diagnosis: 1. Chronic Microcytic Anemia 2. Unspecified Falls; likely age-related balance difficulties 3. Severe Aortic Stenosis s/p TAVR 4. Diabetes Mellitus 5. Persistent Atrial Fibrillation Consults: None Physical Exam: General: comfortable, NAD, HEENT: NC/AT, PERRL, EOMI, MMM, poor dentition, no JVD Chest: nonlabored, CTAB, no wheezing, no rales Cardiac: irregularly irregular rhythm, normal rate, normal s1/s2, 2/6 systolic murmur, no rubs Abdomen: BS+, soft, nd/nt, Extremities: WWP, no edema Vascular: 2+ radial and DP pulses b/l, cap refill<3s Neuro: AOx4, nonfocal exam Hospital Presentation: Wilfredo Sorensen is an 82 y.o. 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 Per patient, she presented to [facility] due to symptoms of weakness, fatigue, and dysuria. She states that her fatigue and weakness has been present since before undergoing the TAVR pocedure. She reports being told that she was anemic in the past. She had a colonoscopy several years ago (does not remember date) that she was told was normal. She denies any bleeding, hematemesis, hemoptysis, melena, or hematochezia. However, she does report easy bruising. She currently denies any chest pain, SOB, nausea, or vomiting. She does report intermittent palpitations and recent diarrhea. Her dysuria started several days ago. During this time, she has also had increased urinary f requency. She denies cloudy or ordorus urine. Of note, she also reports recent falls where she will "just suddenly fall backward." Her most recent fall was several days ago. She hit her head at that time but did not lose consciousness. On arrival, labs showed normal BMP and negative troponin. UA showed small leukocyte esterase and WBC 3. Her Hb was 7.6. Of note, iron studies from 05/14/17 show iron 98, % iron 28, TIBC 353, and ferritin 324. Folate WNL and B12 low at 193. She was admitted to the [facility] for further management. Per previous notes, anemia workup including serum electropheresis, bone marrow biopsy have yielded no definitive answers. She has previously had an EGD in 2014 which showed erosive gastritis, barrets esophagus, mild duodenitis, and an inconclusive colonoscopy due to poor prep showed severe diverticulosis and hemorrhoids. She was seen by both hematology and GI teams at [facility]. Hematology recommendations included follow up as O/P in clinic, iron infusion and possible repeat bone marrow biopsy if warranted. GI believes repeat EGD and colonoscopy might not be beneficial due to sedation risks, and they believe angiodysplasia might be the cause of her anemia. Hospital Course: Pt was admitted to the [facility] for work-up. She was hemodynamically stable throughout her admission. Metoprolol was added to her cardiac regimen (for afib). She had a TTE which showed normal ejection fraction and well seated and well functioning bioprosthetic aortic valve. She was evaluated by PT/OT and did not believe her to have significant funcitonal decline requiring inpatient PT. She was on xanax and gabapentin at home which were likely contributing to her frequent falls. These medicines were discontinued. Home health was contacted to evaluate the patient's home for safety and to provide a home health aide for assistance. She was not sent home on anticoagulation due to her fall risk. But will follow up with her primary datawarehouse developer Dr. Perdomo and in Valve clinic. Pt will likely benefit from a Watchman device if she continues to be at significant risk for anticoagulation. Labs pertinent to hospital course: [facility]* % Satur Fe: 95 % High (06/18/17) A/G Ratio: 1.1 (06/14/17) ABO/Rh: A POS (06/15/17) AGAP: 13.1 mEq/L (06/18/17) Albumin Lvl: 3.2 g/dL Low (06/14/17) Alk Phos: 79 unit/L (06/14/17) ALT: 18 unit/L (06/14/17) Anisocyte: 1 + Abnormal (06/16/17) Antibody Scrn: Negative (06/15/17) AST: 22 unit/L (06/14/17) B/C Ratio: 15 (06/14/17) Basophils: 0.7 % (06/18/17) Bili Total: 0.4 mg/dL (06/14/17) BNP: 142 pg/mL High (06/14/17) BUN: 26 mg/dL High (06/18/17) Ca Ion WB: 1.16 mMol/L (06/15/17) Ca Norm WB: 1.14 mMol/L (06/15/17) Calcium Lvl: 8.9 mg/dL (06/18/17) Chloride Lvl: 103 mEq/L (06/18/17) CK MB: 0.8 ng/mL (06/14/17) CK MB Index: 2.2 (06/14/17) CO2: 28 mEq/L (06/18/17) Creatinine Lvl: 0.88 mg/dL (06/18/17) Culture: Urine: POS Critical (06/16/17) eGFR: 61 mL/min/1.73m2 (06/18/17) Eosinophils: 0.9 % (06/18/17) Ferritin Lvl: 322 ng/mL High (06/18/17) Folate Lvl: 7.2 ng/mL (06/18/17) Globulin: 2.8 g/dL (06/14/17) Gluc POC Comment 1: Notified RN/MD (06/17/17) Glucose Lvl: 131 mg/dL High (06/18/17) Glucose POC: 152 mg/dL High (06/18/17) Hct: 29.1 % Low (06/18/17) Hgb: 9.6 g/dL Low (06/18/17) Hgb A1C: 5.3 % (06/16/17) Iron: 341 ug/dl High (06/18/17) Lymphocytes: 33.2 % (06/18/17) Lymphocytes #: 1.1 K/CMM (06/18/17) Magnesium Lvl: 2.5 mg/dL High (06/18/17) MCH: 31.6 pg High (06/18/17) MCHC: 33.1 g/dL (06/18/17) MCV: 95.5 fL (06/18/17) Monocytes: 12.2 % High (06/18/17) Monocytes #: 0.4 K/CMM (06/18/17) MPV: 6.9 fL Low (06/18/17) Phosphorus: 3 mg/dL (06/18/17) Platelet: 145 K/CMM (06/18/17) POC Performing Location: See Note (06/18/17) Potassium Lvl: 4.1 mEq/L (06/18/17) PTT: 23.2 seconds (06/14/17) RBC: 3.05 M/CMM Low (06/18/17) RBC product: Product available (06/17/17) RDW: 20.7 % High (06/18/17) Segs: 53 % (06/18/17) Segs-Bands #: 1.7 K/CMM (06/18/17) Sodium Lvl: 140 mEq/L (06/18/17) TIBC: 358 ug/dl (06/18/17) Total CK: 36 unit/L (06/14/17) Total Protein: 6 g/dL Low (06/14/17) Transferrin: 272 mg/dL (06/18/17) TRANSFUSED: TRANSFUSED (06/17/17) Troponin-I: <0.02 (06/14/17) TSH: 1.33 uIU/mL (06/14/17) UA Bacteria: cOCC (06/14/17) UA Bili: NEG (06/14/17) UA Blood: iSmall Abnormal (06/14/17) UA Color: Ltyellow (06/14/17) UA Glucose: NEG (06/14/17) UA Ketones: NEG (06/14/17) UA Leuk Est: iSmall Abnormal (06/14/17) UA Nitrite: NEG (06/14/17) UA pH: 7 (06/14/17) UA Protein: NEG (06/14/17) UA RBC: 1 /HPF (06/14/17) UA Spec Grav: 1.004 (06/14/17) UA Sq Epi: iOCC (06/14/17) UA Turbidity: Clear (06/14/17) UA Urobilinogen: <=1.0 (06/14/17) UA WBC: 3 /HPF (06/14/17) UIBC: 17 ug/dl Low (06/18/17) Vitamin B12 Lvl: 224 pg/mL Low (06/18/17) WBC: 3.2 K/CMM Low (06/18/17) XM EXM Interp: Compatible (06/15/17) Imaging during hospital stay: Transthoracic ECHO Conclusions 1) Normal LV size with mild concentric hypertrophy and normal systolic function. LVEF 60-65% 2) Doppler evidence of elevated mean LA pressure. 3) Normal RV size and systolic function. 4) Well-seated bioprosthesis in the aortic position with trivial paravalvular regurgitation. Peak velocity 1.6 m/sec, mean gradient 5 mmhg, EOA 2.0 cm2. 5) Mitral annular calcifications. Mild mitral regurgitation. 6) Mild tricuspid regurgitation. 7) RV systolic pressure estimated 39 mmHg. 8) No pericardial effusion. 9) Normal aortic root dimensions. 10) Compared with prior study 05/24/2017, there is no significant change in biventricular systolic function and valvular function. RVSP is slightly lower on current study. CT Brain IMPRESSION: 1. Prominent right parietal scalp swelling. No definite acute infarct or intracranial hemorrhage detected. 2. Diffuse cerebral atrophy and advanced severe chronic small vessel ischemic change. CT A/P IMPRESSION: 1. 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 2. Advanced atheromatous changes. Coronary artery disease. 3. CT findings of constipation Procedures during hospital stay: None Discharge Condition: Stable Disposition: Discharged to home with home health Discharge Medications: Discharge Diet: Heart Healthy Discharge Activity: As tolerated with walker Discharge Instructions/Special Instructions: None Pending Labs: None Pending Procedures: None Items to be addressed during PCP follow up: Falls, Home Health Follow up with: PCP- 2 weeks Cardiology: Dr. Kidd in 1 week Structural Heart Disease: Dr. Castellanos--to keep previously scheduled appt I saw and examined patient with the resident, Dr. Thompson. Agree with management and plans for discharge as we discussed. Extracted from: Title: [facility] Progress Note Author: Sofia Thompson MD Date: 06/17/17 Patient: WILFREDO SORENSEN Age: 82 years Sex: Female : 1935 Associated Diagnoses: None Author: Sofia Thompson MD Subjective No acute events overnight. Pt did not work with PT because she was eating at the time. She states that she was able to get up and walk around with her without issue. No complaints. Health Status Allergies: Allergic Reactions (All) Severity Not Documented Cefuroxime- No reactions were documented. Ciprofloxacin- No reactions were documented. Erythromycin- No reactions were documented. Iodine SHELTER- No reactions were documented. Penicillin- No reactions were documented. Sulfa drugs- No reactions were documented. Trimethoprim- No reactions were documented. Canceled/Inactive Reactions (All) Severity Not Documented Cephalexin- No reactions were documented. Problem list: All Problems Alzheimer's disease / SNOMED CT 54201917 / Confirmed Anemia of chronic disease / SNOMED CT 931877717 / Confirmed Anxiety / SNOMED CT [id number] / Confirmed Benign hypertension / SNOMED CT 62731630 / Confirmed CAD - Coronary artery disease / SNOMED CT 1173904030 / Confirmed Chronic kidney disease (CKD), stage III (moderate) / SNOMED CT 7478398346 / Confirmed COPD / SNOMED CT 78426852 / Confirmed Depression / SNOMED CT [id number] / Confirmed Diabetes mellitus due to underlying condition with diabetic chronic kidney disease / SNOMED CT 522588808 / Confirmed Fibromyalgia / ICD-9-CM 729.1 / Confirmed History of - multiple allergies / SNOMED CT 3982619435 / Confirmed History of fall / SNOMED CT 2051438944 / Confirmed Hyperlipidemia / SNOMED CT 96364759 / Confirmed Hypothyroidism / SNOMED CT 90549676 / Confirmed Kidney stone / ICD-9-CM 592.0 / Confirmed right Knee replacement / SNOMED CT 320906809 / Confirmed OA - Osteoarthritis / SNOMED CT 8606822595 / Confirmed Obesity / SNOMED CT 6405579246 / Confirmed Obstructive sleep apnea / SNOMED CT 5457383857 / Confirmed Objective Meds Scheduled Meds (16):AMIODarone, aspirin (aspirin 81 mg tablet, enteric coated), atorvastatin, clopidogrel, docusate, donepezil, gabapentin (gabapentin 300 mg oral capsule), heparin, insulin glargine, insulin lispro, levothyroxine, lisinopril, metoprolol (metoprolol extended release), pantoprazole, ranitidine (ranitidine 150 mg oral tablet), venlafaxine (Effexor XR) Unscheduled Meds: None PRN Meds (10):Dextrose 50% in Water IV (Dextrose 50% Syringe), Dextrose 50% in Water IV (Dextrose 50% Syringe), acetaminophen (Tylenol), glucagon, insulin lispro, insulin lispro, insulin lispro, insulin lispro, insulin lispro, sodium chloride (Saline Flush 0.9%) One Time Meds: None Continuous Infusions (1):sodium chloride 0.9% INJ 250 mL I&O Input/Output RecordInOutBal 3024hr Tot 0 0 0 2924hr Tot 660 0 660 VS/Measurements Vital Signs (last 24 hrs) Last Charted Temp Oral98.7 DegF (JUN 17:) Heart Rate PeripheralL 55bpm (JUN 17:45) Resp Rate 18 BRMIN (JUN 17:) JCM874 mmHg (JUN 17:) DBPL 54mmHg (JUN 17:45) KnK552 % (JUN 17:45) General: comfortable, NAD, HEENT: NC/AT, PERRL, EOMI, MMM, poor dentition, no JVD Chest: nonlabored, CTAB, no wheezing, no rales Cardiac: irregularly irregular rhythm, normal rate, normal s1/s2, 2/6 systolic murmur, no rubs Abdomen: BS+, soft, nd/nt, Extremities: WWP, no edema Vascular: 2+ radial and DP pulses b/l, cap refill<3s Neuro: AOx4, nonfocal exam Review / Management Results review: Labs (Last four charted values) WBC L 3.2(JUN 17)L 3.4(JUN 16)L 3.0(JUN 15) Hgb L 9.4(JUN 17)L 10.7(JUN 16)L 7.7(JUN 15) Hct L 28.5(JUN 17)L 32.7(JUN 16)L 23.7(JUN 15) Plt 148(JUN 17)160(JUN 16)137(JUN 15) Na 140(JUN 17)140(JUN 16)142(JUN 15) K 4.3(JUN 17)3.9(JUN 16)4.3(JUN 15) CO2 28(JUN 17)32(JUN 16)29(JUN 15) Cl 104(JUN 17)103(JUN 16)106(JUN 15) Cr 0.92(JUN 17)0.89(JUN 16)0.97(JUN 15) BUN 17(JUN 17)16(JUN 16)17(JUN 15) Glucose Random H 122(JUN 17)H 173(JUN 16)H 151(JUN 15) Mg H 2.5(JUN 17)2.4(JUN 16)2.4(JUN 15) Phos 3.1(JUN 17)L 2.3(JUN 16)L 2.4(JUN 15) Ca 9.2(JUN 17)9.6(JUN 16)8.7(JUN 15). Impression and Plan 82 y.o. 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 She was [facility] the [facility] for further management. Frequent Falls - for the past year, more frequent over last 2 months. no syncope or LOC during these episodes, not mechanical as per pt - likely related to age, PD, possible polypharmacy (on xanax and gabapentin at home) - Jazlyn consult - PT/OT--pt cleared by PT. will set up home PT - Falls precaution - will arrange for event monitor to ensure no arrythmias at home(pt has been asymptomatic here with no events on tele) Parkinson's Disease -Patient with hx of Parkinson's disease and recent -Fall precautions Alzheimer Disease -Continue home donepezil 10 mg PO Bedtime, venlafaxine Sever s/p TAVR on 05/23/17 -Patient currently denies any chest pain or SOB -Continue ASA 81 mg daily, atorvastatin 40mg daily and Plavix 75 mg daily - TTE: 60-65%, prosthetic valve in good position with acceptable gradients. CAD s/p CABG - no chest pain currently -Continue ASA 81 mg daily, atorvastatin 40 mg daily -Continue lisinopril 20 mg daily, toprol xl 25mg qd Chronic HFpEF - Appears well compensated. Lungs clear, no LE edema, BNP 142 - TTE (05/24/17) showed LVEF 60-65%, bioprosthetic valve in aortic position with no paravalvular leak, RVSP 50 mmHg - Continue home lisinopril 20 mg daily, ASA, statin - Start metoprolol succ 25mg qd - Monitor lytes - Strict I/Os Atrial fibrillation-rate controlled, currently in sinus rhythm - CHADsVASc=6: 9.7% yearly risk of stroke - HAS-BLED=1: 3.4% risk of major bleed - Continue home amiodarone 200 mg PO daily - Metoprolol succ 25mg qd - No AC 2/2 frequent falls - will send for evaluation for watchman device Acute on chronic microcytic anemia - Patient with extenisve anemia workup in past. Eitiology still unknow though likely GI source (angiodysplasia, small bowel AVMs?) - Hb 7.6 on arrival. s/p 1U PRBC with appropriate response on admission - Unlikely etiology of her falls as this has been chronic and worked up extensively in the past - should continue work-up as outpatient DM2 - HbA1c - 5.9% - Cont home lantus 20 units at bedtime - lispro 3 units TID with meals and low dose SSI - Continue to monitor Hypothyroidism - TSH wnl - Continue home synthroid 150 mcg daily Dispo: Home pending SW and home health eval Diet: Heart Healthy/Diabetic Code: Full Code DVT PPx: Heparin 5,000 units SC q8h -- Sofia Thompson MD Internal Medicine | PGY3 MSO [id number] Addendum I saw and examined patient with resident, Dr. Thompson. Agree with management and plans as by we discussed. Amadou Castillo MD on 06/17/2017 20:14 Extracted from: Title: [facility] H&P Author: Anthony Garcia MD Date: 06/15/17 Patient: WILFREDO SORENSEN Age: 82 years Sex: Female : 1935 Associated Diagnoses: None Author: Anthony Garcia MD Basic Information Source of history: Self, Spouse. Present at bedside: Family member. Referral source: [facility]. History limitation: None. Chief Complaint Anemia History of Present Illness Wilfredo Sorensen is an 82 y.o. 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 Per patient, she presented to [facility] due to symptoms of weakness, fatigue, and dysuria. She states that her fatigue and weakness has been present since before undergoing the TAVR pocedure. She reports being told that she was anemic in the past. She had a colonoscopy several years ago (does not remember date) that she was told was normal. She denies any bleeding, hematemesis, hemoptysis, melena, or hematochezia. However, she does report easy bruising. She currently denies any chest pain, SOB, nausea, or vomiting. She does report intermittent palpitations and recent diarrhea. Her dysuria started several days ago. During this time, she has also had increased urinary f requency. She denies cloudy or ordorus urine. Of note, she also reports recent falls where she will "just suddenly fall backward." Her most recent fall was several days ago. She hit her head at that time but did not lose consciousness. On arrival, labs showed normal BMP and negative troponin. UA showed small leukocyte esterase and WBC 3. Her Hb was 7.6. Of note, iron studies from 05/14/17 show iron 98, % iron 28, TIBC 353, and ferritin 324. Folate WNL and B12 low at 193. She was admitted to the [facility] for further management. Per previous notes, anemia workup including serum electropheresis, bone marrow biopsy have yielded no definitive answers. She has previously had an EGD in 2015 which showed erosive gastritis, barrets esophagus, mild duodenitis, and an inconclusive colonoscopy due to poor prep showed severe diverticulosis and hemorrhoids. She was seen by both hematology and GI teams at [facility]. Hematology recommendations included follow up as O/P in clinic, iron infusion and possible repeat bone marrow biopsy if warranted. GI believes repeat EGD and colonoscopy might not be beneficial due to sedation risks, and they believe angiodysplasia might be the cause of her anemia. Review of Systems Constitutional: Fatigue, No fever, No chills. Eye: Negative. Ear/Nose/Mouth/Throat: Negative. Respiratory: No shortness of breath, No cough. Cardiovascular: Palpitations, No chest pain. Gastrointestinal: Diarrhea, No nausea, No vomiting. Genitourinary: Dysuria, No hematuria. Hematology/Lymphatics: Bruising tendency. Endocrine: Negative. Immunologic: Negative. Musculoskeletal: No back pain. Integumentary: Negative. Neurologic: Negative. Psychiatric: Negative. All other systems. Health Status Allergies: Allergic Reactions (Selected) Severity Not Documented Cefuroxime- No reactions were documented. Ciprofloxacin- No reactions were documented. Erythromycin- No reactions were documented. Iodine SHELTER- No reactions were documented. Penicillin- No reactions were documented. Sulfa drugs- No reactions were documented. Trimethoprim- No reactions were documented. Current medications: Medications (16) Active Scheduled: (14) AMIODarone 200 mg TAB 200 mg 1 tab, PO, Bedtime aspirin 81 mg ECT 81 mg 1 tab, PO, Daily atorvastatin 40mg tab 40 mg 1 tab, PO, Bedtime clopidogrel 75 mg TAB 75 mg 1 tab, PO, Daily docusate sodium 100 mg CAP 100 mg 1 cap, PO, BID donepezil 5 mg TAB 10 mg 2 tab, PO, Bedtime gabapentin 300 mg CAP 300 mg 1 cap, PO, BID insulin GLARGINE 5 unit/0.05 mL INJ SYR 20 unit 0.2 mL, SUB-Q, Bedtime levothyroxine 150 microgram TAB 150 microgram 1 tab, PO, Daily lisinopril 20 mg TAB 20 mg 1 tab, PO, Daily pantoprazole 40 mg ECT 40 mg 1 tab, PO, Daily pneumococcal 13-valent vaccine 0.5 mL, IM, Daily ranitidine 150 mg TAB 150 mg 1 tab, PO, BID venlafaxine 150 mg ERC (XR) 150 mg 1 cap, PO, Bedtime Continuous: (1) sodium chloride 0.9% INJ 250 mL 250 mL, IV PRN: (1) sodium chloride 0.9% 10 ml flush syr BD 10 ml, IVP, PRN Problem list: Problem list reviewed. Histories Past Medical History: Active Anxiety ([id number]) Depression ([id number]) Fibromyalgia (729.1) History of - multiple allergies (0466868441) Kidney stone (592.0) right Knee replacement (760247495) OA - Osteoarthritis (9427643279) Resolved History of Parkinson's disease (2035486972): Onset on 08/19/1999 at 64 years. Resolved. Diabetes (917409093): Onset on 08/19/1979 at 44 years. Resolved. Bypass (116807599): Resolved. Hyperlipidemia (12115495): Resolved. Hypertension (5271093652): Resolved. Family History: Sister Cystic fibrosis. Father Leukemia Mother Osteoarthritis Procedure history: dual cardiac Bypass (138111484) on 01/14/2010 at 74 Years. Comments: 04/19/2015 11:22 - Christa Currie MA pt had 2 bypass Caesarean section (32971607) on 08/19/1960 at 25 Years. Abdominal hysterectomy (129050265) on 08/19/1957 at 22 Years. Appendectomy (567553155). Back fusion (524205488). Bladder implantation (360781101). Comments: 05/18/2017 15:21 - Kirsty Lyons RN pt states a device was implanted into bladder to help regulate urination/ in addition the battery for this device inserted/located right posterior area above buttock/hip area Cholecystectomy (72356827). Hysterectomy (578810741). 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 (558114875). Social History Social & Psychosocial Habits Alcohol 01/25/2017 Use: Never Employment/School 05/10/2014 Hazardous equipment operation: No Exercise 05/10/2014 Duration (average number of minutes): 0 Comment: up to the bathroom. - 05/10/2014 21:53 - Josy Lepe RN Sexual 05/10/2014 Sexually active: No Substance Abuse 05/10/2014 Use: None Tobacco 06/14/2017 Use: Former smoker Type: Cigarettes Exposure to Tobacco Smoke None Cigarette Smoking Last 365 Days No Reg Smoking Cessation Counseling No Comment: pt quit 33 yrs ago - 04/19/2015 11:23 - Christa Currie MA . Physical Examination VS/Measurements Vital Signs (last 24 hrs) Last Charted Temp Oral97.6 DegF (JUN 15 00:20) Heart Rate Ykyxqnnrlk51 bpm (JUN 15 00:20) Resp Rate 18 BRMIN (JUN 15 00:20) WCA882 mmHg (JUN 15 00:20) DBP68 mmHg (JUN 15 00:20) ZiT842 % (JUN 15 00:20) Nrruev22.409 kg (JUN 14 16:55) Pyitwt718.86 cm (JUN 14 16:55) BMI30.46 (JUN 14 16:55) General: Alert and oriented, No acute distress. Eye: Pupils are equal, round and reactive to light, Extraocular movements are intact. HENT: Normocephalic, Normal hearing. Neck: Supple, Non-tender, No carotid bruit. Respiratory: Lungs are clear to auscultation, Respirations are non-labored. Cardiovascular: Normal rate, Regular rhythm, No murmur, No gallop, Good pulses equal in all extremities. Gastrointestinal: Soft, Non-tender, Bilateral firm nodules palpated in RLQ/LLQ. Genitourinary: No costovertebral angle tenderness. Musculoskeletal Normal range of motion. Normal strength. No tenderness. No swelling. Integumentary: Warm, Dry. Neurologic: Alert, Oriented. Cognition and Speech: Speech clear and coherent. Psychiatric: Cooperative, Appropriate mood & affect. Impression and Plan Wilfredo Sorensen is an 82 y.o. 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 On arrival, labs showed normal BMP and negative troponin. UA showed small leukocyte esterase and WBC 3. Her Hb was 7.6. Of note, iron studies from 05/14/17 show iron 98, % iron 28, TIBC 353, and ferritin 324. Folate WNL and B12 low at 193. She was admitted to the [facility] for further management. Parkinson's Disease -Patient with hx of Parkinson's disease and recenet falls. Falls likely result of Parkinson's -Fall precautions Alzheimer Disease -Continue home donepezil 10 mg PO Bedtime Sever s/p TAVR on 05/23/17 -Patient currently denies any chest pain or SOB -Continue ASA 81 mg daily and Plavix 75 mg daily CAD s/p CABG -Patient currently w/o chest pain -Continue ASA 81 mg daily, atorvastatin 40 mg daily -Continue lisinopril 20 mg daily -Consider starting patient on BB Chronic HFpEF -Patient's lungs are clear to auscultation, no LE edema -TTE (05/24/17) showed LVEF 60-65%, bioprosthetic valve in aortic position with no paravalvular leak, RVSP 50 mmHg -Continue home lisinopril 20 mg daily -Consider starting BB -Monitor lytes -Strict I/Os Atrial fibrillation-rate controlled, currently in sinus rhythm -Continue home amiodarone 200 mg PO daily -CHADsVASc score - 6 which places her a 9.7% yearly risk of stroke -Given recent anemia, patient has not been started on anticoagulation per chart -HAS-BLED score 1 which places her at 3.4% risk of major bleed -Will anticoagulation hold for now Acute on chronic microcytic anemia -Patient with extenisve anemia workup in past. Eitiology still unknow though likely GI source -Hb 7.6 on arrival. Will transfuse 1 unit pRBCs -F/u post tranfusion H/H -Will order repeat iron panel and FOBT -Possible heme and GI consult in AM DM2 -HbA1c - 5.9% -Will start home lantus 20 units at bedtime -Will start lispro 3 units TID with meals and low dose SSI -Continue to monitor Dysuria -UA showed small leukocyte esterase and WBC 3 -Urine culture pending -Will not start abx at this time Hypothyroidism -Continue home synthroid 150 mcg daily Dispo: Pending anemia evaluation Diet: Heart Healthy/Diabetic Code: Full Code DVT PPx: Heparin 5,000 units SC q8h Anthony Garcia MD [facility] [employer] Internal Medicine PGY-2 Addendum Patient seen and examined, labs and chart reviewed by me, the plan was discussed with the by cardiology team in detail Adrienne I agree with the note below , Mirza betts MD on 06/15/2017 16:48
--- OUTSIDE RECORDS SUMMARY | 2018-08-13 18:27 | XMS REPORT | Summary of Care ---
Author Author [facility] Organization [facility] Address Unknown Phone Unavailable Encounter TREVON Frias(KIRSTIE) [id number] Date(s): 05/14/17 - 05/25/17 [facility] [address] [employer] provided by [facility] [employer] [facility] [place] [address]- Discharge Disposition: Home or Self Care Attending Physician: Kevin Castellanos MD Admitting Physician: Kevin Castellanos MD Vital Signs 1 2 3 Most recent to oldest [Reference Range]: 149.86 cm (05/19/17 12:05 AM) 149.86 cm (05/14/17 2:17 AM) Height 70.591 kg (05/19/17 4:08 AM) 70 kg (05/18/17 6:16 AM) 70.045 kg (05/16/17 6:07 AM) Current Weight 98.2 DegF (05/25/17 12:00 PM) 98 DegF (05/25/17 8:02 AM) 97.0 DegF (05/25/17 12:00 AM) Temperature Oral [96.4-99.1 DegF] 134/65 mmHg (05/25/17 12:00 PM) 124/80 mmHg (05/25/17 10:00 AM) 117/54 mmHg (05/25/17 9:00 AM) Blood Pressure [90-140/60-90 mmHg] 33 BRMIN *HI* (05/25/17 12:00 PM) 32 BRMIN *HI* (05/25/17 10:00 AM) 40 BRMIN *HI* (05/25/17 9:00 AM) Respiratory Rate [14-20 BRMIN] 62 bpm (05/14/17 4:34 PM) 67 bpm (05/14/17 8:00 AM) 65 bpm (05/14/17 4:00 AM) Peripheral Pulse Rate [60-100 bpm] 68.182 kg (05/19/17 12:05 AM) 68.182 kg (05/14/17 2:17 AM) Weight 30.36 m2 (05/14/17 2:17 AM) Body Mass Index Problem List Condition [...] cefuroxime Active ciprofloxacin Active erythromycin Active Iodine CUSTODIAL Active penicillin Active sulfa drugs Active trimethoprim Active Medications acetaminophen 1,000 mg, 100 mL, Route: IVPB, Drug form: INJ, ONCE, Dosing Weight 68.182, kg, P RN Pain Score 1-3, Start date: 05/23/17 19:02:00 CDT Notes: Infuse over 15 minutesDo not exceed 4gm/day of acetaminophen MEDICAT ION WASTE Product Size: 1000 mgProduct Wasted: ___ mg Start Date: 05/23/17 Stop Date: 05/25/17 Status: Discontinued acetaminophen (ANES) Route: IV, Drug form: INJ, ONCE, Stop date: 05/23/17 18:01:00 CDT Start Date: 05/23/17 Stop Date: 05/23/17 Status: Completed AMIODarone 200 mg, 1 tab, Route: PO, Drug form: TAB, Bedtime, Dosing Weight 68.182, kg, Sta rt date: 05/14/17 21:00:00 CDT, Duration: 30 day, Stop date: 06/12/17 21:00:00 C DT Notes: (Same as: Cordarone) Start Date: 05/14/17 Stop Date: 05/25/17 Status: Discontinued AMIODarone 200 mg oral tablet 200 mg=1 tab, PO, Bedtime, # 90 tab, 0 Refill(s) Start Date: 05/25/17 Status: Ordered amLODIPine 5 mg, 1 tab, Route: PO, Drug form: TAB, ONCE, Dosing Weight 68.182, kg, Start da te: 05/23/17 10:23:00 CDT, Stop date: 05/23/17 10:23:00 CDT Notes: (Same as: Erik) Start Date: 05/23/17 Stop Date: 05/23/17 Status: Completed amLODIPine 5 mg, 1 tab, Route: PO, Drug form: TAB, Daily, Dosing Weight 68.182, kg, Start d ate: 05/22/17 9:52:00 CDT, Duration: 30 day, Stop date: 06/21/17 9:00:00 CDT Notes: (Same as: Norvasc) Start Date: 05/22/17 Stop Date: 05/23/17 Status: Discontinued amLODIPine 10 mg, 1 tab, Route: PO, Drug form: TAB, Daily, Dosing Weight 68.182, kg, Start date: 05/24/17 9:00:00 CDT, Duration: 30 day, Stop date: 06/22/17 9:00:00 CDT Notes: (Same as: Latishac) Start Date: 05/24/17 Stop Date: 05/24/17 Status: Discontinued ANES fentaNYL 50 microgram, 1 mL, Route: IVP, Drug form: INJ, Q5Min, Dosing Weight 68.182, kg, PRN Pain Score 7-10, Priority: Routine, Start date: 05/23/17 18:11:00 CDT, Dura tion: 2 doses or times, Stop date: Limited # of times Notes: (Same as: Sublimaze) Preservative free. Start Date: 05/23/17 Stop Date: 05/25/17 Status: Discontinued ANES fentaNYL 25 microgram, 0.5 mL, Route: IVP, Drug form: INJ, Q5Min, Dosing Weight 68.182, k g, PRN Pain Score 4-6, Priority: Routine, Start date: 05/23/17 18:11:00 CDT, Dur ation: 4 doses or times, Stop date: Limited # of times Notes: (Same as: Sublimaze) Preservative free. Start Date: 05/23/17 Stop Date: 05/25/17 Status: Discontinued ANES flumazenil 0.2 mg, 2 mL, Route: IVP, Drug form: INJ, PRN, Dosing Weight 68.182, kg, PRN Marcello zodiazepine Reversal, Initial dose, Start date: 05/23/17 18:11:00 CDT, Duration: 30 day, Stop date: 06/22/17 18:10:00 CDT Notes: (Same as: Romazicon) Start Date: 05/23/17 Stop Date: 05/25/17 Status: Discontinued ANES naloxone 0.4 mg, 1 mL, Route: IVP, Drug form: INJ, Q2MIN, Dosing Weight 68.182, kg, PRN N arcotic Reversal, Start date: 05/23/17 18:11:00 CDT, Duration: 8 doses or times, Stop date: Limited # of times Notes: Same as Narcan Start Date: 05/23/17 Stop Date: 05/25/17 Status: Discontinued aspirin 81 mg tablet, enteric coated 81 mg, 1 tab, Route: PO, Drug form: ECTAB, Daily, Dosing Weight 68.182, kg, Star t date: 05/14/17 9:00:00 CDT, Duration: 30 day, Stop date: 06/12/17 9:00:00 CDT Notes: Do not crush or chew.(Same As: Ecotrin) Start Date: 05/14/17 Stop Date: 05/24/17 Status: Discontinued aspirin 81 mg tablet, enteric coated 81 mg, 1 tab, Route: PO, Drug form: ECTAB, Daily, Dosing Weight 68.182, kg, Star t date: 05/24/17 9:00:00 CDT, Duration: 30 day, Stop date: 06/22/17 9:00:00 CDT Notes: Do not crush or chew.(Same As: Ecotrin) Start Date: 05/24/17 Stop Date: 05/25/17 Status: Discontinued aspirin 81 mg tablet, enteric coated 81 mg=1 tab, PO, Daily, # 90 tab, 0 Refill(s) Start Date: 05/25/17 Status: Ordered atorvastatin 40 mg, 1 tab, Route: PO, Drug form: TAB, Bedtime, Dosing Weight 68.182, kg, Star t date: 05/14/17 21:00:00 CDT, Duration: 30 day, Stop date: 06/12/17 21:00:00 CD T Notes: (Same as: Lipitor) Start Date: 05/14/17 Stop Date: 05/25/17 Status: Discontinued atorvastatin 40 mg oral tablet 40 mg=1 tab, PO, Bedtime, # 90 tab, 0 Refill(s) Start Date: 05/25/17 Status: Ordered Benadryl 25 mg, 1 cap, Route: PO, Drug form: CAP, Bedtime, Dosing Weight 68.182, kg, PRN Insomnia, Start date: 05/22/17 10:01:00 CDT, Duration: 30 day, Stop date: 10:00:00 CDT Notes: (Same as: Benadryl) Start Date: 05/22/17 Stop Date: 05/22/17 Status: Discontinued Benadryl 12.5 mg, 5 mL, Route: PO, Drug form: LIQ, Bedtime, Dosing Weight 68.182, kg, PRN Insomnia, Start date: 05/22/17 14:10:00 CDT, Stop date: 06/21/17 14:09:00 CDT Notes: (Same as: Benadryl) Start Date: 05/22/17 Stop Date: 05/25/17 Status: Discontinued calcium carbonate 500 mg (200 mg elemental calcium) oral tablet 1,000 mg, 2 tab, Route: PO, Drug form: CHEWTAB, PRN, Dosing Weight 68.182, kg, P RN Abnormal Lab Result, FOR ICU USE ONLY, Start date: 05/24/17 5:40:00 CDT, Dura tion: 30 day, Stop date: 06/23/17 4:39:00 WORM RAISER Notes: (Same As: Tumjulia)Calcium Carbonate 500 mi=090 mg elemental calcium Dose=_ mg calcium carbonate ( mg elemental calcium) Start Date: 05/24/17 Stop Date: 05/25/17 Status: Discontinued calcium carbonate 500 mg (200 mg elemental calcium) oral tablet 500 mg, 1 tab, Route: PO, Drug form: CHEWTAB, PRN, Dosing Weight 68.182, kg, PRN Abnormal Lab Result, FOR ICU USE ONLY, Start date: 05/24/17 5:40:00 CDT, Durati on: 30 day, Stop date: 06/23/17 4:39:00 WORM RAISER Notes: (Same As: Tumjulia)Calcium Carbonate 500 vd=790 mg elemental calcium Dose=_ mg calcium carbonate ( mg elemental calcium) Start Date: 05/24/17 Stop Date: 05/25/17 Status: Discontinued calcium gluconate + sodium chloride 0.9% INJ 50 mL 1 gm, 10 mL, Route: IVPB, PRN, Dosing Weight 68.182, kg, PRN Abnormal Lab Result , Start date: 05/24/17 5:40:00 CDT, Duration: 30 day, Stop date: 06/23/17 4:39:0 0 WORM RAISER, FOR ICU USE ONLY Notes: WASTE: F/P - Sink; E - Municipal Trash Bin Start Date: 05/24/17 Stop Date: 05/25/17 Status: Discontinued ceFAZolin (ANES) Route: IV, Drug form: INJ, ONCE, Stop date: 05/23/17 17:36:00 CDT Start Date: 05/23/17 Stop Date: 05/23/17 Status: Completed ceFAZolin (SCIP) 1 gm, Route: IVPB, Drug form: PDR/INJ, Q8H, Dosing Weight 68.182, kg, Start date : 05/24/17 0:00:00 CDT, Duration: 1 doses or times, Stop date: 05/24/17 0:00:00 CDT, ABX Indication: Surgical Prophylaxis Notes: (Same As: Daren Centeno) MEDICATION WASTE Product Size: 1000 mgP roduct Wasted:0 mg Start Date: 05/24/17 Stop Date: 05/24/17 Status: Completed clopidogrel 75 mg, 1 tab, Route: PO, Drug form: TAB, Daily, Dosing Weight 68.182, kg, Start date: 05/24/17 9:00:00 CDT, Duration: 30 day, Stop date: 06/22/17 9:00:00 CDT Notes: (Same As: Plavix) Start Date: 05/24/17 Stop Date: 05/25/17 Status: Discontinued clopidogrel 75 mg oral tablet 75 mg=1 tab, PO, Daily, # 90 tab, 0 Refill(s) Start Date: 05/25/17 Status: Ordered dexmedetomidine (ANES) (ANES) Route: IV, Drug form: INJ, Start date: 05/23/17 16:35:00 CDT, Stop date: 17:35:00 CDT Start Date: 05/23/17 Stop Date: 05/23/17 Status: Completed Dextrose 50% Syringe 25 mL, Route: IVP, Dosing Weight 68.182, kg, PRN, PRN Blood Glucose Results, Sta rt date: 05/15/17 16:34:00 CDT, Duration: 30 day, Stop date: 06/14/17 16:33:00 C DT Start Date: 05/15/17 Stop Date: 05/15/17 Status: Discontinued Dextrose 50% Syringe 50 mL, Route: IVP, Dosing Weight 68.182, kg, PRN, PRN Blood Glucose Results, Sta rt date: 05/15/17 16:34:00 CDT, Duration: 30 day, Stop date: 06/14/17 16:33:00 C DT Start Date: 05/15/17 Stop Date: 05/15/17 Status: Discontinued Dextrose 50% Syringe 12.5 gm, 25 mL, Route: IVP, Drug Form: INJ, Dosing Weight 68.182, kg, PRN, PRN B lood Glucose Results, Start date: 05/15/17 14:38:00 CDT, Duration: 30 day, Stop date: 06/14/17 14:37:00 CDT Start Date: 05/15/17 Stop Date: 05/25/17 Status: Discontinued Dextrose 50% Syringe 25 gm, 50 mL, Route: IVP, Drug Form: INJ, Dosing Weight 68.182, kg, PRN, PRN Blo od Glucose Results, Start date: 05/15/17 14:38:00 CDT, Duration: 30 day, Stop da te: 06/14/17 14:37:00 CDT Start Date: 05/15/17 Stop Date: 05/25/17 Status: Discontinued Dextrose 50% Syringe 25 gm, 50 mL, Route: IVP, Drug Form: INJ, Dosing Weight 68.182, kg, PRN, PRN Blo od Glucose Results, Start date: 05/14/17 8:02:00 CDT, Duration: 30 day, Stop joseluis e: 06/13/17 8:01:00 CDT Start Date: 05/14/17 Stop Date: 05/15/17 Status: Discontinued Dextrose 50% Syringe 12.5 gm, 25 mL, Route: IVP, Drug Form: INJ, Dosing Weight 68.182, kg, PRN, PRN B lood Glucose Results, Start date: 05/14/17 8:02:00 CDT, Duration: 30 day, Stop d ate: 06/13/17 8:01:00 CDT Start Date: 05/14/17 Stop Date: 05/15/17 Status: Discontinued diphenhydrAMINE 50 mg, 2 cap, Route: PO, Drug form: CAP, ONCE, Dosing Weight 68.182, kg, Start d ate: 05/15/17 7:00:00 CDT, Stop date: 05/15/17 7:00:00 CDT Notes: (Same as: Benadryl) Start Date: 05/15/17 Stop Date: 05/15/17 Status: Completed diphenhydrAMINE 50 mg, 1 mL, Route: IVP, Drug form: INJ, ONCE, Dosing Weight 68.182, kg, Start d ate: 05/14/17 11:00:00 CDT, Stop date: 05/14/17 11:00:00 CDT Notes: (Same as: Benadryl) Start Date: 05/14/17 Stop Date: 05/14/17 Status: Discontinued diphenhydrAMINE 50 mg, 1 cap, Route: PO, Drug form: CAP, ONCE, Dosing Weight 68.182, kg, Start d ate: 05/22/17 7:59:00 CDT, Stop date: 05/22/17 7:59:00 CDT Notes: (Same as: Benadryl) Start Date: 05/22/17 Stop Date: 05/23/17 Status: Completed docusate 100 mg, 1 cap, Route: PO, Drug form: CAP, Q12H, Dosing Weight 68.182, kg, Start date: 05/23/17 21:00:00 CDT, Duration: 30 day, Stop date: 06/22/17 9:00:00 CDT Notes: (Same as: Colace) (Do Not Crush) Start Date: 05/23/17 Stop Date: 05/25/17 Status: Discontinued donepezil 10 mg, 2 tab, Route: PO, Drug form: TAB, Bedtime, Dosing Weight 68.182, kg, Star t date: 05/14/17 21:00:00 CDT, Duration: 30 day, Stop date: 06/12/17 21:00:00 CD T Notes: (Same as: Aricept) Start Date: 05/14/17 Stop Date: 05/25/17 Status: Discontinued donepezil 10 mg oral tablet 10 mg=1 tab, PO, Bedtime, # 90 tab, 0 Refill(s) Start Date: 05/25/17 Status: Ordered Effexor XR 150 mg, 1 cap, Route: PO, Drug form: ERCAP, QPM, Dosing Weight 68.182, kg, Start date: 05/14/17 17:00:00 CDT, Duration: 30 day, Stop date: 06/12/17 17:00:00 CDT Notes: Do not open, crush, or chew. 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, Start date: 05/22/17 8:00:00 CDT, Duration: 1 day, Sto p date: 05/23/17 7:59:00 CDT Notes: (Same as: Exparel) NOT FOR IV use Postoperative analgesia: Infi ltration (local): Dose is based on surgical site and volume required to cover th e area (in general, the maximum total dose is 266 mg).Bunionectomy: 7 mL into th e tissues surrounding the osteotomy and 1 mL into the subcutaneous tissue of the surgical site (total dose=8 mL [106 mg])Hemorrhoidectomy: 30 mL (20 mL vial dil uted with 10 mL NS) divided and administered as 6 injections of 5 mL each (total dose=30 mL [266 mg]) Start Date: 05/22/17 Stop Date: 05/25/17 Status: Discontinued famotidine 20 mg, 1 tab, Route: PO, Drug form: TAB, ONCE, Dosing Weight 68.182, kg, Start d ate: 05/15/17 7:00:00 CDT, Stop date: 05/15/17 7:00:00 CDT Notes: (Same as: Pepcid) Start Date: 05/15/17 Stop Date: 05/15/17 Status: Completed famotidine 20 mg, 1 tab, Route: PO, Drug form: TAB, Daily, Start date: 05/14/17 15:00:00 CD T, Duration: 30 day, Stop date: 06/13/17 9:00:00 CDT Notes: (Same as: Pepcid) Start Date: 05/14/17 Stop Date: 05/23/17 Status: Discontinued famotidine 20 mg, 2 mL, Route: IVP, Drug form: INJ, ONCE, Dosing Weight 68.182, kg, Start d ate: 05/14/17 11:00:00 CDT, Stop date: 05/14/17 11:00:00 CDT Notes: (Same as: Pepcid)Can be dilute in 5-10cc NS IVP: Slow IV push over at le ast 2 minutes. Start Date: 05/14/17 Stop Date: 05/14/17 Status: Discontinued famotidine 20 mg, 1 tab, Route: PO, Drug form: TAB, ONCE, Dosing Weight 68.182, kg, Start d ate: 05/22/17 7:59:00 CDT, Stop date: 05/22/17 7:59:00 CDT Notes: (Same as: Pepcid) Start Date: 05/22/17 Stop Date: 05/23/17 Status: Completed fentaNYL (ANES) Route: IV, Drug form: INJ, ONCE, Stop date: 05/23/17 17:41:00 CDT Start Date: 05/23/17 Stop Date: 05/23/17 Status: Completed Ferrlecit + sodium chloride 0.9% INJ 100 mL 125 mg, 10 mL, Route: IV, Drug form: INJ, Daily, Start date: 05/16/17 10:00:00 C DT, Stop date: 05/23/17 10:00:00 CDT Notes: (sodium ferric gluconate complex (elemental iron) 62.5 mg/5 ml INJ)"Limit ed stability. Use immediately after admixture"(Same as: Ferrlecit) MEDICAT ION WASTE Product Size: 62.5 mgProduct Wasted: ___ mg Start Date: 05/16/17 Stop Date: 05/23/17 Status: Completed folic acid 1 mg, 1 tab, Route: PO, Drug form: TAB, Daily, Dosing Weight 68.182, kg, Start d ate: 05/15/17 9:00:00 CDT, Duration: 7 day, Stop date: 05/21/17 9:00:00 CDT Notes: (Same as: Folvite) Start Date: 05/15/17 Stop Date: 05/21/17 Status: Completed fosfomycin 3 gm, 1 pkt, Route: PO, Drug form: PDR/REC, ONCE, Dosing Weight 68.182, kg, Star t date: 05/21/17 9:57:00 CDT, Stop date: 05/21/17 9:57:00 CDT Notes: (Same as: Monural) mix w/ 90 to 120 ml (3 to 4 ounces) of water and stir to dissolve. Do not use hot water. Take immediately after dissolving in water. Start Date: 05/21/17 Stop Date: 05/21/17 Status: Completed furosemide 40 mg, 4 mL, Route: IVP, Drug form: INJ, Daily, Dosing Weight 68.182, kg, Start date: 05/14/17 9:00:00 CDT, Duration: 30 day, Stop date: 06/12/17 9:00:00 CDT Notes: (Same as: Lasix) MEDICATION WASTE Product Size: 40 mgProduct Was jeffrey: ___ mg Start Date: 05/14/17 Stop Date: 05/22/17 Status: Discontinued furosemide 20 mg, 2 mL, Route: IVP, Drug form: INJ, ONCE, Dosing Weight 68.182, kg, Priorit y: Routine, Start date: 05/21/17 10:14:00 CDT, Stop date: 05/21/17 10:14:00 CDT Notes: (Same as: Lasix) Start Date: 05/21/17 Stop Date: 05/21/17 Status: Completed gabapentin 300 mg oral capsule 300 mg=1 cap, PO, BID, # 90 cap, 0 Refill(s) Start Date: 05/25/17 Status: Ordered gabapentin 300 mg oral capsule 300 mg, 1 cap, Route: PO, Drug form: CAP, BID, Dosing Weight 68.182, kg, Start d ate: 05/14/17 9:00:00 CDT, Duration: 30 day, Stop date: 06/12/17 21:00:00 CDT Notes: (Same as: Neurontin) Start Date: 05/14/17 Stop Date: 05/25/17 Status: Discontinued glucagon 1 mg, Route: IM, Drug form: PDR/INJ, PRN, Dosing Weight 68.182, kg, PRN Blood Gl ucose Results, Start date: 05/15/17 14:38:00 CDT, Duration: 30 day, Stop date: 1 14:37:00 CDT Start Date: 05/15/17 Stop Date: 05/25/17 Status: Discontinued glucagon 1 mg, Route: IM, Drug form: PDR/INJ, PRN, Dosing Weight 68.182, kg, PRN Blood Gl ucose Results, Start date: 05/14/17 8:02:00 CDT, Duration: 30 day, Stop date: 8:01:00 CDT Start Date: 05/14/17 Stop Date: 05/15/17 Status: Discontinued heparin 5,000 unit, 1 mL, Route: SUB-Q, Drug form: INJ, Q8H, Dosing Weight 68.182, kg, S tart date: 05/14/17 8:00:00 CDT, Duration: 30 day, Stop date: 06/13/17 0:00:00 C DT Notes: porcine heparin Start Date: 05/14/17 Stop Date: 05/25/17 Status: Discontinued heparin (ANES) Route: IV, Drug form: INJ, ONCE, Stop date: 05/23/17 18:01:00 CDT Start Date: 05/23/17 Stop Date: 05/23/17 Status: Completed Humalog 5 unit, 0.05 mL, Route: SUB-Q, Drug form: SOLN, TID-Meals, Start date: 05/15/17 17:00:00 CDT, Duration: 30 day, Stop date: 06/14/17 12:00:00 CDT Notes: (Same as: Humalog ) Roll in palms of hands gently; Do not shake `vigorou sly. "Single Patient Use Only " (Restricted to patients requiring a dose > 60 units)WASTE: F/P - Black; E - Municipal Trash Bin Stable for 28 days at room temperature.Expires in days from Date Start Date: 05/15/17 Stop Date: 05/25/17 Status: Discontinued Imdur 30 mg, 1 tab, Route: PO, Drug form: ERTAB, Bedtime, Dosing Weight 68.182, kg, St art date: 05/14/17 21:00:00 CDT, Duration: 30 day, Stop date: 06/12/17 21:00:00 CDT Notes: (Same as:Imdur)"Do Not Crush" Take on empty stomach/ full glass of water . Do not crush Start Date: 05/14/17 Stop Date: 05/24/17 Status: Discontinued influenza virus vaccine, inactivated 0.5 mL, Route: IM, Drug Form: SUSP, Daily, Start date: 05/14/17 9:00:00 CDT, Dur ation: 1 doses or times, Stop date: 05/14/17 9:00:00 CDT Notes: (Same as: Fluzone Quadrivalent, Fluarix Quadrivalent)For 3 years of age a nd older (0.5 mL IM)Shake well before use Start Date: 05/14/17 Stop Date: 05/14/17 Status: Completed insulin lispro 5 unit, 0.05 mL, Route: SUB-Q, Drug form: SOLN, TID-Before Meals, Dosing Weight 68.182, kg, PRN Blood Glucose Results, Start date: 05/16/17 19:56:00 CDT, Durati on: 30 day, Stop date: 06/15/17 19:55:00 CDT Notes: (Same as: Humalog ) Roll in palms of hands gently; Do not shake `vigorou sly. "Single Patient Use Only " (Restricted to patients requiring a dose > 60 units)WASTE: F/P - Black; E - Municipal Trash Bin Stable for 28 days at room temperature.Expires in days from Date Start Date: 05/16/17 Stop Date: 05/25/17 Status: Discontinued insulin lispro 2 unit, 0.02 mL, Route: SUB-Q, Drug form: SOLN, TID-Before Meals, Dosing Weight 68.182, kg, PRN Blood Glucose Results, Start date: 05/16/17 19:56:00 CDT, Durati on: 30 day, Stop date: 06/15/17 19:55:00 CDT Notes: (Same as: Humalog ) Roll in palms of hands gently; Do not shake `vigorou sly. "Single Patient Use Only " (Restricted to patients requiring a dose > 60 units)WASTE: F/P - Black; E - Municipal Trash Bin Stable for 28 days at room temperature.Expires in days from Date Start Date: 05/16/17 Stop Date: 05/25/17 Status: Discontinued insulin lispro 4 unit, 0.04 mL, Route: SUB-Q, Drug form: SOLN, TID-Before Meals, Dosing Weight 68.182, kg, PRN Blood Glucose Results, Start date: 05/16/17 19:56:00 CDT, Durati on: 30 day, Stop date: 06/15/17 19:55:00 CDT Notes: (Same as: Humalog ) Roll in palms of hands gently; Do not shake `vigorou sly. "Single Patient Use Only " (Restricted to patients requiring a dose > 60 units)WASTE: F/P - Black; E - Municipal Trash Bin Stable for 28 days at room temperature.Expires in days from Date Start Date: 05/16/17 Stop Date: 05/25/17 Status: Discontinued insulin lispro 3 unit, 0.03 mL, Route: SUB-Q, Drug form: SOLN, TID-Before Meals, Dosing Weight 68.182, kg, PRN Blood Glucose Results, Start date: 05/16/17 19:56:00 CDT, Durati on: 30 day, Stop date: 06/15/17 19:55:00 CDT Notes: (Same as: Humalog ) Roll in palms of hands gently; Do not shake `vigorou sly. "Single Patient Use Only " (Restricted to patients requiring a dose > 60 units)WASTE: F/P - Black; E - Municipal Trash Bin Stable for 28 days at room temperature.Expires in days from Date Start Date: 05/16/17 Stop Date: 05/25/17 Status: Discontinued insulin lispro 10 unit, 0.1 mL, Route: SUB-Q, Drug form: SOLN, TID-Before Meals, Dosing Weight 68.182, kg, PRN Blood Glucose Results, Start date: 05/15/17 14:38:00 CDT, Durati on: 30 day, Stop date: 06/14/17 14:37:00 CDT Notes: (Same as: Humalog ) Roll in palms of hands gently; Do not shake `vigorou sly. "Single Patient Use Only " (Restricted to patients requiring a dose > 60 units)WASTE: F/P - Black; E - Municipal Trash Bin Stable for 28 days at room temperature.Expires in days from Date Start Date: 05/15/17 Stop Date: 05/16/17 Status: Discontinued insulin lispro 6 unit, 0.06 mL, Route: SUB-Q, Drug form: SOLN, TID-Before Meals, Dosing Weight 68.182, kg, PRN Blood Glucose Results, Start date: 05/15/17 14:38:00 CDT, Durati on: 30 day, Stop date: 06/14/17 14:37:00 CDT Notes: (Same as: Humalog ) Roll in palms of hands gently; Do not shake `vigorou sly. "Single Patient Use Only " (Restricted to patients requiring a dose > 60 units)WASTE: F/P - Black; E - Municipal Trash Bin Stable for 28 days at room temperature.Expires in days from Date Start Date: 05/15/17 Stop Date: 05/16/17 Status: Discontinued insulin lispro 8 unit, 0.08 mL, Route: SUB-Q, Drug form: SOLN, TID-Before Meals, Dosing Weight 68.182, kg, PRN Blood Glucose Results, Start date: 05/15/17 14:38:00 CDT, Durati on: 30 , Stop date: 06/14/17 14:37:00 CDT Notes: (Same as: Humalog ) Roll in palms of hands gently; Do not shake `vigorou sly. "Single Patient Use Only " (Restricted to patients requiring a dose > 60 units)WASTE: F/P - Black; E - Municipal Trash Bin Stable for 28 days at room temperature.Expires in days from Date Start Date: 05/15/17 Stop Date: 05/16/17 Status: Discontinued insulin lispro 4 unit, 0.04 mL, Route: SUB-Q, Drug form: SOLN, TID-Before Meals, Dosing Weight 68.182, kg, PRN Blood Glucose Results, Start date: 05/15/17 14:38:00 CDT, Durati on: 30 , Stop date: 06/14/17 14:37:00 CDT Notes: (Same as: Humalog ) Roll in palms of hands gently; Do not shake `vigorou sly. "Single Patient Use Only " (Restricted to patients requiring a dose > 60 units)WASTE: F/P - Black; E - Municipal Trash Bin Stable for 28 days at room temperature.Expires in days from Date Start Date: 05/15/17 Stop Date: 05/16/17 Status: Discontinued insulin lispro 2 unit, 0.02 mL, Route: SUB-Q, Drug form: SOLN, TID-Before Meals, Dosing Weight 68.182, kg, PRN Blood Glucose Results, Start date: 05/15/17 14:38:00 CDT, Durati on: 30 day, Stop date: 06/14/17 14:37:00 CDT Notes: (Same as: Humalog ) Roll in palms of hands gently; Do not shake `vigorou sly. "Single Patient Use Only " (Restricted to patients requiring a dose > 60 units)WASTE: F/P - Black; E - Municipal Trash Bin Stable for 28 days at room temperature.Expires in days from Date Start Date: 05/15/17 Stop Date: 05/16/17 Status: Discontinued insulin lispro 2 unit, 0.02 mL, Route: SUB-Q, Drug form: SOLN, Sliding Scale, Dosing Weight 68. 182, kg, PRN Blood Glucose Results, Start date: [...] temperature.Expires in days from Date Start Date: 05/14/17 Stop Date: 05/15/17 Status: Discontinued insulin lispro 1 unit, 0.01 mL, Route: SUB-Q, Drug form: SOLN, Sliding Scale, Dosing Weight 68. 182, kg, PRN Blood Glucose Results, Start date: [...] temperature.Expires in days from Date Start Date: 05/14/17 Stop Date: 05/15/17 Status: Discontinued insulin lispro 3 unit, 0.03 mL, Route: SUB-Q, Drug form: SOLN, Sliding Scale, Dosing Weight 68. 182, kg, PRN Blood Glucose Results, Start date: [...] temperature.Expires in days from Date Start Date: 05/14/17 Stop Date: 05/15/17 Status: Discontinued insulin lispro 4 unit, 0.04 mL, Route: SUB-Q, Drug form: SOLN, Sliding Scale, Dosing Weight 68. 182, kg, PRN Blood Glucose Results, Start date: [...] temperature.Expires in days from Date Start Date: 05/14/17 Stop Date: 05/15/17 Status: Discontinued insulin lispro 5 unit, 0.05 mL, Route: SUB-Q, Drug form: SOLN, Sliding Scale, Dosing Weight 68. 182, kg, PRN Blood Glucose Results, Start date: [...] temperature.Expires in days from Date Start Date: 05/14/17 Stop Date: 05/15/17 Status: Discontinued insulin lispro 8 unit, 0.08 mL, Route: SUB-Q, Drug form: SOLN, Sliding Scale, Dosing Weight 68. 182, kg, PRN Blood Glucose Results, Start date: 05/15/17 12:34:00 CDT, Duration: 30 day, Stop date: 06/14/17 12:33:00 CDT Notes: (Same as: Humalog ) Roll in palms of hands gently; Do not shake `vigorou sly. "Single Patient Use Only " (Restricted to patients requiring a dose > 60 units)WASTE: F/P - Black; E - Municipal Trash Bin Stable for 28 days at room temperature.Expires in days from Date Start Date: 05/15/17 Stop Date: 05/15/17 Status: Discontinued insulin lispro 10 unit, 0.1 mL, Route: SUB-Q, Drug form: SOLN, Sliding Scale, Dosing Weight 68. 182, kg, PRN Blood Glucose Results, Start date: 05/15/17 12:34:00 CDT, Duration: 30 day, Stop date: 06/14/17 12:33:00 CDT Notes: (Same as: Humalog ) Roll in palms of hands gently; Do not shake `vigorou sly. "Single Patient Use Only " (Restricted to patients requiring a dose > 60 units)WASTE: F/P - Black; E - Municipal Trash Bin Stable for 28 days at room temperature.Expires in days from Date Start Date: 05/15/17 Stop Date: 05/15/17 Status: Discontinued insulin lispro 2 unit, 0.02 mL, Route: SUB-Q, Drug form: SOLN, Sliding Scale, Dosing Weight 68. 182, kg, PRN Blood Glucose Results, Start date: 05/15/17 12:34:00 CDT, Duration: 30 day, Stop date: 06/14/17 12:33:00 CDT Notes: (Same as: Humalog ) Roll in palms of hands gently; Do not shake `vigorou sly. "Single Patient Use Only " (Restricted to patients requiring a dose > 60 units)WASTE: F/P - Black; E - Municipal Trash Bin Stable for 28 days at room temperature.Expires in days from Date Start Date: 05/15/17 Stop Date: 05/15/17 Status: Discontinued insulin lispro 4 unit, 0.04 mL, Route: SUB-Q, Drug form: SOLN, Sliding Scale, Dosing Weight 68. 182, kg, PRN Blood Glucose Results, Start date: 05/15/17 12:34:00 CDT, Duration: 30 day, Stop date: 06/14/17 12:33:00 CDT Notes: (Same as: Humalog ) Roll in palms of hands gently; Do not shake `vigorou sly. "Single Patient Use Only " (Restricted to patients requiring a dose > 60 units)WASTE: F/P - Black; E - Municipal Trash Bin Stable for 28 days at room temperature.Expires in days from Date Start Date: 05/15/17 Stop Date: 05/15/17 Status: Discontinued insulin lispro 6 unit, 0.06 mL, Route: SUB-Q, Drug form: SOLN, Sliding Scale, Dosing Weight 68. 182, kg, PRN Blood Glucose Results, Start date: 05/15/17 12:34:00 CDT, Duration: 30 day, Stop date: 06/14/17 12:33:00 CDT Notes: (Same as: Humalog ) Roll in palms of hands gently; Do not shake `vigorou sly. "Single Patient Use Only " (Restricted to patients requiring a dose > 60 units)WASTE: F/P - Black; E - Municipal Trash Bin Stable for 28 days at room temperature.Expires in days from Date Start Date: 05/15/17 Stop Date: 05/15/17 Status: Discontinued insulin lispro 5 unit, 0.05 mL, Route: SUB-Q, Drug form: SOLN, ONCE, Dosing Weight 68.182, kg, Start date: 05/15/17 19:41:00 CDT, Stop date: 05/15/17 19:41:00 CDT Notes: (Same as: Humalog ) Roll in palms of hands gently; Do not shake `vigorou sly. "Single Patient Use Only " (Restricted to patients requiring a dose > 60 units)WASTE: F/P - Black; E - Municipal Trash Bin Stable for 28 days at room temperature.Expires in days from Date Start Date: 05/15/17 Stop Date: 05/15/17 Status: Discontinued Insulin regular 10 unit, 0.1 mL, Route: SUB-Q, Drug form: SOLN, ONCE, Dosing Weight 68.182, kg, Start date: 05/15/17 16:37:00 CDT, Stop date: 05/15/17 16:37:00 CDT Notes: (Same as: Humulin R) Roll in palms of hands gently; Do not shake vigorou sly. "single patient use only"(Restricted to patients requiring a dose > 60 units)WASTE: F/P - Black; E - Municipal Trash Bin Stable for 28 days at room temperatureExpires in days from Date Start Date: 05/15/17 Stop Date: 05/15/17 Status: Discontinued Insulin regular 5 unit, Route: SUB-Q, TID-Before Meals, Dosing Weight 68.182, kg, Start date: 16:30:00 CDT, Duration: 30 day, Stop date: 06/14/17 11:30:00 CDT Start Date: 05/15/17 Stop Date: 05/15/17 Status: Discontinued Insulin regular 5 unit, 0.05 mL, Route: IV, Drug form: SOLN, ONCE, Dosing Weight 68.182, kg, Sta rt date: 05/15/17 16:45:00 CDT, Stop date: 05/15/17 16:45:00 CDT Notes: (Same as: Humulin R) Roll in palms of hands gently; Do not shake vigorou sly. "single patient use only"(Restricted to patients requiring a dose > 60 units)WASTE: F/P - Black; E - Municipal Trash Bin Stable for 28 days at room temperatureExpires in days from Date Start Date: 05/15/17 Stop Date: 05/15/17 Status: Completed Insulin regular 5 unit, 0.05 mL, Route: SUB-Q, Drug form: SOLN, ONCE, Dosing Weight 68.182, kg, Start date: 05/15/17 15:01:00 CDT, Stop date: 05/15/17 15:01:00 CDT Notes: (Same as: Humulin R) Roll in palms of hands gently; Do not shake vigorou sly. "single patient use only"(Restricted to patients requiring a dose > 60 units)WASTE: F/P - Black; E - Municipal Trash Bin Stable for 28 days at room temperatureExpires in days from Date Start Date: 05/15/17 Stop Date: 05/15/17 Status: Completed Lantus Solostar Pen 100 units/mL subcutaneous solution 20 unit, 0.2 mL, Route: SUB-Q, Drug form: SOLN, Bedtime, Dosing Weight 68.182, k g, Start date: 05/14/17 21:00:00 CDT, Duration: 30 day, Stop date: 06/12/17 21:0 0:00 CDT Notes: Same as: Lantus)Do not hold insulin without contacting prescriberWASTE: F /P - Black; E - Municipal Trash Bin Start Date: 05/14/17 Stop Date: 05/24/17 Status: Discontinued Lantus Solostar Pen 100 units/mL subcutaneous solution 10 unit, 0.1 mL, Route: SUB-Q, Drug form: SOLN, ONCE, Dosing Weight 68.182, kg, Start date: 05/23/17 23:03:00 CDT, Stop date: 05/23/17 23:03:00 CDT Notes: Same as: Lantus)Do not hold insulin without contacting prescriberWASTE: F /P - Black; E - Municipal Trash Bin Start Date: 05/23/17 Stop Date: 05/24/17 Status: Completed Lantus Solostar Pen 100 units/mL subcutaneous solution 20 unit, 0.2 mL, Route: SUB-Q, Drug form: SOLN, Bedtime, Dosing Weight 68.182, k g, Start date: 05/24/17 21:52:00 CDT, Duration: 30 day, Stop date: 06/23/17 21:0 0:00 WORM RAISER Notes: Same as: Lantus)Do not hold insulin without contacting prescriberWASTE: F /P - Black; E - Municipal Trash Bin Start Date: 05/24/17 Stop Date: 05/25/17 Status: Discontinued Lasix 20 mg, 2 mL, Route: IVP, Drug form: INJ, ONCE, Dosing Weight 68.182, kg, Start d ate: 05/22/17 8:38:00 CDT, Stop date: 05/22/17 8:38:00 CDT Notes: (Same as: Lasix) Start Date: 05/22/17 Stop Date: 05/22/17 Status: Completed Lasix 20 mg oral tablet 40 mg, Route: PO, Drug form: TAB, Daily, Dosing Weight 68.182, kg, Start date: 1 9:00:00 CDT, Duration: 30 day, Stop date: 06/20/17 9:00:00 CDT Start Date: 05/22/17 Stop Date: 05/21/17 Status: Canceled levothyroxine 150 microgram, 1 tab, Route: PO, Drug form: TAB, [id number], Dosing Weight 68.182, k g, Start date: 05/14/17 9:00:00 CDT, Duration: 30 day, Stop date: 06/13/17 6:30: 00 CDT Notes: Take 1 hour before or 2 hours after meal; Enteral feeds may interefere wi th the absorption of this medication. (Same as: Levothroid) Start Date: 05/14/17 Stop Date: 05/25/17 Status: Discontinued levothyroxine 150 mcg (0.15 mg) oral tablet 150 microgram=1 tab, PO, Daily, # 90 tab, 1 Refill(s) Start Date: 05/25/17 Status: Ordered lidocaine (ANES) Route: IV, Drug form: INJ, ONCE, Stop date: 05/23/17 17:41:00 CDT Start Date: 05/23/17 Stop Date: 05/23/17 Status: Completed lisinopril 10 mg, 1 tab, Route: PO, Drug form: TAB, Daily, Dosing Weight 68.182, kg, Start date: 05/24/17 8:09:00 CDT, Duration: 30 day, Stop date: 06/22/17 9:00:00 CDT Notes: (Same as: Tori Zestril) Start Date: 05/24/17 Stop Date: 05/24/17 Status: Discontinued lisinopril 20 mg, 1 tab, Route: PO, Drug form: TAB, Daily, Dosing Weight 68.182, kg, Start date: 05/19/17 10:30:00 CDT, Duration: 30 day, Stop date: 06/18/17 9:00:00 CDT Notes: (Same as: Tori Zestril) Start Date: 05/19/17 Stop Date: 05/20/17 Status: Discontinued lisinopril 10 mg, 1 tab, Route: PO, Drug form: TAB, ONCE, Dosing Weight 68.182, kg, Start d ate: 05/20/17 14:59:00 CDT, Stop date: 05/20/17 14:59:00 CDT Notes: (Same as: Tori, Zestril) Start Date: 05/20/17 Stop Date: 05/20/17 Status: Completed lisinopril 30 mg, 3 tab, Route: PO, Drug form: TAB, Daily, Dosing Weight 68.182, kg, Start date: 05/21/17 9:00:00 CDT, Duration: 30 day, Stop date: 06/19/17 9:00:00 CDT Notes: (Same as: ivil, Zestril) Start Date: 05/21/17 Stop Date: 05/22/17 Status: Discontinued lisinopril 40 mg, 2 tab, Route: PO, Drug form: TAB, Daily, Dosing Weight 68.182, kg, Start date: 05/22/17 9:00:00 CDT, Duration: 30 day, Stop date: 06/20/17 9:00:00 CDT Notes: (Same as: Prinivil, Zestril) Start Date: 05/22/17 Stop Date: 05/24/17 Status: Discontinued lisinopril 10 mg, 1 tab, Route: PO, Drug form: TAB, ONCE, Dosing Weight 68.182, kg, Start d ate: 05/22/17 8:35:00 CDT, Stop date: 05/22/17 8:35:00 CDT Notes: (Same as: Prinivil, Zestril) Start Date: 05/22/17 Stop Date: 05/22/17 Status: Completed lisinopril 20 mg, 1 tab, Route: PO, Drug form: TAB, Daily, Dosing Weight 68.182, kg, Start date: 05/25/17 9:00:00 CDT, Duration: 30 day, Stop date: 06/23/17 9:00:00 WORM RAISER Notes: (Same as: Tori, Zestril) Start Date: 05/25/17 Stop Date: 05/25/17 Status: Discontinued lisinopril 20 mg, 1 tab, Route: PO, Drug form: TAB, Daily, Dosing Weight 68.182, kg, Start date: 05/15/17 9:00:00 CDT, Duration: 30 day, Stop date: 06/13/17 9:00:00 CDT Notes: (Same as: Prinivil, Zestril) Start Date: 05/15/17 Stop Date: 05/19/17 Status: Discontinued lisinopril 10 mg, 1 tab, Route: PO, Drug form: TAB, ONCE, Dosing Weight 68.182, kg, Start d ate: 05/24/17 10:05:00 CDT, Stop date: 05/24/17 10:05:00 CDT Notes: (Same as: ivil, Zestril) Start Date: 05/24/17 Stop Date: 05/24/17 Status: Completed lisinopril 20 mg oral tablet 20 mg=1 tab, PO, Daily, # 90 tab, 4 Refill(s), Lisinopril 20 mg Start Date: 05/25/17 Stop Date: 10/22/17 Status: Ordered magnesium oxide 800 mg, 2 tab, Route: PO, Drug form: TAB, PRN, Dosing Weight 68.182, kg, PRN Abn ormal Lab Result, FOR ICU USE ONLY, Start date: 05/24/17 5:40:00 CDT, Duration: 30 day, Stop date: 06/23/17 4:39:00 WORM RAISER Notes: (Same as: Mag-Ox 400)Magnesium oxide [id number] elemental magnesiumDose= ____mg magnesium oxide (___mg elemental magnesium) Start Date: 05/24/17 Stop Date: 05/25/17 Status: Discontinued magnesium sulfate 2 gm, 50 mL, Route: IVPB, Drug form: INJ, PRN, Dosing Weight 68.182, kg, PRN Abn ormal Lab Result, Start date: 05/24/17 5:40:00 CDT, Duration: 30 day, Stop date: 06/23/17 4:39:00 WORM RAISER, FOR ICU USE ONLY Notes: WASTE: F/P - Sink; E - Municipal Trash Bin Start Date: 05/24/17 Stop Date: 05/25/17 Status: Discontinued melatonin 3 mg oral tablet 3 mg, 1 tab, Route: PO, Drug Form: TAB, Dosing Weight 68.182, kg, ONCE, Start da te: 05/15/17 1:40:00 CDT, Stop date: 05/15/17 1:40:00 CDT Notes: (Same as: Melatonin) Start Date: 05/15/17 Stop Date: 05/15/17 Status: Completed melatonin 3 mg oral tablet 3 mg, 1 tab, Route: PO, Drug Form: TAB, Dosing Weight 68.182, kg, ONCE, Start da te: 05/16/17 2:41:00 CDT, Stop date: 05/16/17 2:41:00 CDT Notes: (Same as: Melatonin) Start Date: 05/16/17 Stop Date: 05/16/17 Status: Completed melatonin 3 mg oral tablet 9 mg, 3 tab, Route: PO, Drug Form: TAB, Dosing Weight 68.182, kg, Bedtime, Start date: 05/19/17 21:00:00 CDT, Stop date: 06/17/17 21:00:00 CDT Notes: (Same as: Melatonin) Start Date: 05/19/17 Stop Date: 05/25/17 Status: Discontinued melatonin 3 mg oral tablet 3 mg, 1 tab, Route: PO, Dosing Weight 68.182, kg, Bedtime, Start date: 05/16/17 21:00:00 CDT, Duration: 30 day, Stop date: 06/14/17 21:00:00 CDT Start Date: 05/16/17 Stop Date: 05/16/17 Status: Canceled methylPREDNISolone SODium SUCCinate 125 mg, 2 mL, Route: IVP, Drug form: INJ, ONCE, Dosing Weight 68.182, kg, Start date: 05/14/17 11:00:00 CDT, Stop date: 05/14/17 11:00:00 CDT Notes: (Same as:Solu-MEDROL, A-Methapred) Start Date: 05/14/17 Stop Date: 05/14/17 Status: Discontinued montelukast 10 mg, Route: PO, Drug form: TAB, BID, Dosing Weight 68.182, kg, Start date: 9:00:00 CDT, Duration: 30 day, Stop date: 06/12/17 17:00:00 CDT Start Date: 05/14/17 Stop Date: 05/14/17 Status: Deleted morphine Sulfate 2 mg, 0.5 mL, Route: IVP, Drug form: SOLN, ONCE, Dosing Weight 68.182, kg, Start date: 05/14/17 11:34:00 CDT, Stop date: 05/14/17 11:34:00 CDT Notes: (Same as:MORPhine Sulfate) Start Date: 05/14/17 Stop Date: 05/14/17 Status: Completed niCARdipine 40 mg/ NS 200 ml IV Soln (premix) 40 mg 40 mg, 200 mL, Rate: Titrate, Start Dose: 5 mg/hr, Titration: 2mg every 15 minut es PRN, Goal(s): maintain MAP 75-85 mmHg, Max Dose: 15mg/hr, Route: IV, Dosing W eight 68.182 kg, Total Volume: 200, Start date: 05/23/17 19:02:00 CDT, Duration: 30 day, St... Notes: Same as: CardeneConcentration: (0.2 mg /1 ml ) Start Date: 05/23/17 Stop Date: 05/25/17 Status: Discontinued nitroglycerin 0.4 mg sublingual tablet 0.4 mg, 1 tab, Route: SL, Drug form: TAB, Q5Min, Dosing Weight 68.182, kg, PRN C hest Pain, Start date: 05/14/17 8:00:00 CDT, Duration: 30 day, Stop date: 7:59:00 CDT Notes: (Same as:Nitroquick, Nitrostat)"Do Not Crush" Sublingual tablet Start Date: 05/14/17 Stop Date: 05/24/17 Status: Discontinued ondansetron 4 mg, 2 mL, Route: IVP, Drug form: INJ, Q8H, Dosing Weight 68.182, kg, PRN Nause a & Vomiting, Start date: 05/23/17 19:02:00 CDT, Duration: 30 day, Stop date: 06/22/17 19:01:00 CDT Notes: (Same as: Bettina) MEDICATION WASTE Product Size: 4 mgProduct Was jeffrey: ___ mg Start Date: 05/23/17 Stop Date: 05/25/17 Status: Discontinued pantoprazole 40 mg, 1 tab, Route: PO, Drug form: ECTAB, Daily, Dosing Weight 68.182, kg, Star t date: 05/24/17 9:00:00 CDT, Duration: 30 day, Stop date: 06/22/17 9:00:00 CDT Notes: Tablet should not be chewed or crushed.(Same as: Protonix) Start Date: 05/24/17 Stop Date: 05/25/17 Status: Discontinued pantoprazole 40 mg oral enteric coated tablet 40 mg=1 tab, PO, Daily, # 90 tab, 0 Refill(s) Start Date: 05/25/17 Status: Ordered Pepcid 20 mg oral tablet 20 mg, 1 tab, Route: PO, Drug form: TAB, ONCE, Dosing Weight 68.182, kg, Start d ate: 05/16/17 17:50:00 CDT, Stop date: 05/16/17 17:50:00 CDT Notes: (Same as: Pepcid) Start Date: 05/16/17 Stop Date: 05/16/17 Status: Completed pneumococcal 13-valent vaccine 0.5 mL, Route: IM, Daily, Start date: 05/14/17 9:00:00 CDT, Duration: 1 doses or times, Stop date: 05/14/17 9:00:00 CDT Start Date: 05/14/17 Stop Date: 05/14/17 Status: Canceled pneumococcal 23-valent vaccine 0.5 mL, Route: IM, Drug Form: INJ, Daily, Start date: 05/14/17 9:00:00 CDT, Dura tion: 1 doses or times, Stop date: 05/14/17 9:00:00 CDT Notes: (Same as: Pneumovax 23) Refrigerate Start Date: 05/14/17 Stop Date: 05/14/17 Status: Pending Complete polyethylene glycol 3350 17 gm, 1 pkt, Route: PO, Drug form: PWDR, Daily, Dosing Weight 68.182, kg, Start date: 05/24/17 9:00:00 CDT, Duration: 30 day, Stop date: 06/22/17 9:00:00 CDT Notes: Dissolve in 8 oz of water or juice.(Same as: Miralax) Start Date: 05/24/17 Stop Date: 05/25/17 Status: Discontinued potassium chloride 20 mEq, 1 tab, Route: PO, Drug form: ERTAB, PRN, Dosing Weight 68.182, kg, PRN A bnormal Lab Result, Start date: 05/24/17 5:40:00 CDT, Duration: 30 day, Stop joseluis e: 06/23/17 4:39:00 WORM RAISER, FOR ICU USE ONLY Notes: (Same as: K-Dur 20)"Do Not Crush" With food and full glass of water Start Date: 05/24/17 Stop Date: 05/25/17 Status: Discontinued potassium chloride 20 mEq, 100 mL, Route: IVPB, Drug form: INJ, PRN, Dosing Weight 68.182, kg, PRN Abnormal Lab Result, Via central line, Start date: 05/24/17 5:40:00 CDT, Duratio n: 30 day, Stop date: 06/23/17 4:39:00 WORM RAISER, FOR ICU USE ONLY Notes: (Same as: KCL) Infuse no faster than 10 mEq/hr if given peripherally. Start Date: 05/24/17 Stop Date: 05/25/17 Status: Discontinued potassium chloride 10 mEq, 50 mL, Route: IVPB, Drug form: INJ, PRN, Dosing Weight 68.182, kg, PRN A bnormal Lab Result, Via peripheral line, Start date: 05/24/17 5:40:00 CDT, Durat ion: 30 day, Stop date: 06/23/17 4:39:00 WORM RAISER, FOR ICU USE ONLY Notes: (Same as: KCL) Infuse over 2 hours. Start Date: 05/24/17 Stop Date: 05/25/17 Status: Discontinued potassium chloride 20 mEq, 15 mL, Route: NJ, Drug form: LIQ, PRN, Dosing Weight 68.182, kg, PRN Abn ormal Lab Result, Start date: 05/24/17 5:40:00 CDT, Duration: 30 day, Stop date: 06/23/17 4:39:00 WORM RAISER, FOR ICU USE ONLY Notes: (Same as: Potassium Chloride) Start Date: 05/24/17 Stop Date: 05/25/17 Status: Discontinued potassium phosphate + sodium chloride 0.9% INJ 250 mL 15 mmol, 5 mL, Route: IVPB, PRN, Dosing Weight 68.182, kg, PRN Abnormal Lab Resu lt, Start date: 05/24/17 5:40:00 CDT, Duration: 30 day, Stop date: 06/23/17 4:39 :00 WORM RAISER, FOR ICU USE ONLY Notes: (Same as: K Phosphate.) 1 mMol phoshate has 1.47 mEq potassium Infuse o devyn 4 hours Start Date: 05/24/17 Stop Date: 05/25/17 Status: Discontinued potassium phosphate + sodium chloride 0.9% INJ 250 mL 30 mmol, 10 mL, Route: IVPB, PRN, Dosing Weight 68.182, kg, PRN Abnormal Lab Res ult, Start date: 05/24/17 5:40:00 CDT, Duration: 30 day, Stop date: 06/23/17 4:3 9:00 WORM RAISER, FOR ICU USE ONLY Notes: (Same as: K Phosphate.) 1 mMol phoshate has 1.47 mEq potassium Infuse o devyn 4 hours Start Date: 05/24/17 Stop Date: 05/25/17 Status: Discontinued potassium phosphate + sodium chloride 0.9% INJ 250 mL 45 mmol, 15 mL, Route: IVPB, PRN, Dosing Weight 68.182, kg, PRN Abnormal Lab Res ult, Start date: 05/24/17 5:40:00 CDT, Duration: 30 day, Stop date: 06/23/17 4:3 9:00 WORM RAISER, FOR ICU USE ONLY Notes: (Same as: K Phosphate.) 1 mMol phoshate has 1.47 mEq potassium Infuse o devyn 4 hours Start Date: 05/24/17 Stop Date: 05/25/17 Status: Discontinued potassium phosphate-sodium phosphate 250 mg-280 mg-160 mg oral powder for recons titution 2 pkt, Route: PO, Drug Form: PDR/REC, Dosing Weight 68.182, kg, PRN, PRN Abnorma l Lab Result, FOR ICU USE ONLY, Start date: 05/24/17 5:40:00 CDT, Duration: 30 d ay, Stop date: 06/23/17 4:39:00 WORM RAISER Notes: (Same as: Phos-NaK) Each 1.5 gm pkt has 250mg phosphorous. Mix w/2.5oz w ater and stir. Start Date: 05/24/17 Stop Date: 05/25/17 Status: Discontinued predniSONE 50 mg, 1 tab, Route: PO, Drug form: TAB, TID, Dosing Weight 68.182, kg, Start da te: 05/14/17 19:00:00 CDT, Duration: 3 doses or times, Stop date: 05/15/17 7:00: 00 CDT Notes: Take with food. Start Date: 05/14/17 Stop Date: 05/15/17 Status: Completed predniSONE 50 mg, 1 tab, Route: PO, Drug form: TAB, TID, Dosing Weight 68.182, kg, Start da te: 05/23/17 3:00:00 CDT, Duration: 3 doses or times, Stop date: 05/23/17 13:00: 00 CDT Notes: Take with food. Start Date: 05/23/17 Stop Date: 05/23/17 Status: Completed propofol (ANES) Route: IV, Drug form: INJ, ONCE, Stop date: 05/23/17 17:41:00 CDT Start Date: 05/23/17 Stop Date: 05/23/17 Status: Completed protamine (ANES) Route: IV, Drug form: INJ, ONCE, Stop date: 05/23/17 18:36:00 CDT Start Date: 05/23/17 Stop Date: 05/23/17 Status: Completed ranitidine 150 mg oral tablet 150 mg, 1 tab, Route: PO, Drug form: TAB, BID, Dosing Weight 68.182, kg, Start d ate: 05/14/17 9:00:00 CDT, Duration: 30 day, Stop date: 06/12/17 17:00:00 CDT Start Date: 05/14/17 Stop Date: 05/14/17 Status: Deleted Rocephin 1 gm, Route: IVPB, Drug form: PDR/INJ, [id number], Dosing Weight 68.182, kg, Start date: 05/14/17 9:00:00 CDT, Duration: 2 day, Stop date: 05/15/17 9:00:00 CDT, AB X Indication: Genital Tract Infection Notes: (Same As: Rocephin).Use with 100 mL NS and infuse over 30 min MEDICA TION WASTE Product Size: 1000 mgProduct Wasted: ___ mg Start Date: 05/14/17 Stop Date: 05/15/17 Status: Completed Saline Flush 0.9% 10 ml, Route: IVP, Drug Form: INJ, Dosing Weight 68.182, kg, Q12H, Start date: 0 05/14/17 9:00:00 CDT, Duration: 30 day, Stop date: 06/12/17 21:00:00 CDT Notes: (Same as: BD Posiflush) Start Date: 05/14/17 Stop Date: 05/25/17 Status: Discontinued Saline Flush 0.9% 10 ml, Route: IVP, Drug Form: INJ, Dosing Weight 68.182, kg, PRN, PRN Line Flush , Start date: 05/14/17 7:44:00 CDT, Duration: 30 day, Stop date: 06/13/17 7:43:0 0 CDT Notes: (Same as: BD Posiflush) Start Date: 05/14/17 Stop Date: 05/25/17 Status: Discontinued sodium chloride 0.9% 1000 ml INJ 1,000 mL 1,000 mL, Rate: 75 ml/hr, Infuse over: 13.3 hr, Route: IV, Dosing Weight 68.182 kg, Total Volume: 1,000, start at midnight when pt is NPO, Start date: 05/23/17 0:01:00 CDT, Duration: 14 hr, Stop date: 05/23/17 14:00:00 CDT Start Date: 05/23/17 Stop Date: 05/23/17 Status: Completed sodium chloride 0.9% 1000 ml INJ 750 mL 750 mL, Rate: 75 ml/hr, Infuse over: 10 hr, Route: IV, Dosing Weight 68.182 kg, Total Volume: 750, Start date: 05/23/17 19:02:00 CDT, Duration: 10 hr, Stop date : 05/24/17 5:01:00 CDT Start Date: 05/23/17 Stop Date: 05/24/17 Status: Completed sodium chloride 0.9% 250 ml INJ (ANES) Route: IV, Total Volume: 250, Start date: 05/23/17 16:29:00 CDT, Stop date: 01/02 17:29:00 CDT Start Date: 05/23/17 Stop Date: 05/23/17 Status: Completed sodium chloride 0.9% 500 ml INJ 500 mL 500 mL, Rate: 75 ml/hr, Infuse over: 6.7 hr, Route: IV, Dosing Weight 68.182 kg, Total Volume: 500, Start date: 05/15/17 12:28:00 CDT, Duration: 30 day, Stop da te: 06/14/17 12:27:00 CDT Start Date: 05/15/17 Stop Date: 05/22/17 Status: Discontinued sodium chloride 0.9% INJ 250 mL 250 mL, Rate: ventilated rib fitter for use with blood product administration, Dosing Weight 6 8.182, kg, Route: IV, Total Volume: 250, Start Date: 05/22/17 7:59:00 CDT, Durat ion: 30 day, Stop date: 06/21/17 7:58:00 CDT, Replace Every: 24 hr Start Date: 05/22/17 Stop Date: 05/25/17 Status: Discontinued sodium chloride 0.9% INJ 250 mL 250 mL, Rate: Hose Cementer for use with blood product administration., Dosing Weight 68.182, kg, Route: IV, Total Volume: 250, Priority: Routine, Start Date: 7 10:14:00 CDT, Duration: 30 day, Stop date: 06/20/17 10:13:00 CDT, Replace Ever y: 24 hr Start Date: 05/21/17 Stop Date: 05/22/17 Status: Discontinued Sodium Chloride 0.9% IV 99 mL + Insulin regular 100 unit 99 mL, Rate: Start Insulin Drip Per ICU Protocol, Dosing Weight 68.182, kg, Rout e: IVPB, Total Volume: 99, Start Date: 05/15/17 16:34:00 CDT, Duration: 30 day, Stop date: 06/14/17 16:33:00 CDT, Replace Every: 24 hr Start Date: 05/15/17 Stop Date: 05/15/17 Status: Discontinued sodium phosphate + sodium chloride 0.9% INJ 250 mL 30 mmol, 10 mL, Route: IVPB, PRN, Dosing Weight 68.182, kg, PRN Abnormal Lab Res ult, Start date: 05/24/17 5:40:00 CDT, Duration: 30 day, Stop date: 06/23/17 4:3 9:00 WORM RAISER, FOR ICU USE ONLY Start Date: 05/24/17 Stop Date: 05/25/17 Status: Discontinued sodium phosphate + sodium chloride 0.9% INJ 250 mL 45 mmol, 15 mL, Route: IVPB, PRN, Dosing Weight 68.182, kg, PRN Abnormal Lab Res ult, Start date: 05/24/17 5:40:00 CDT, Duration: 30 day, Stop date: 06/23/17 4:3 9:00 WORM RAISER, FOR ICU USE ONLY Start Date: 05/24/17 Stop Date: 05/25/17 Status: Discontinued sodium phosphate + sodium chloride 0.9% INJ 250 mL 15 mmol, 5 mL, Route: IVPB, PRN, Dosing Weight 68.182, kg, PRN Abnormal Lab Resu lt, Start date: 05/24/17 5:40:00 CDT, Duration: 30 day, Stop date: 06/23/17 4:39 :00 WORM RAISER, FOR ICU USE ONLY Start Date: 05/24/17 Stop Date: 05/25/17 Status: Discontinued Toprol-XL 25 mg oral tablet, extended release 25 mg, 1 tab, Route: PO, Drug form: ERTAB, Daily, Start date: 05/14/17 9:00:00 C DT, Stop date: 06/12/17 9:00:00 CDT Notes: (Same as: Toprol XL) Do Not Crush Start Date: 05/14/17 Stop Date: 05/19/17 Status: Discontinued Toprol-XL 25 mg oral tablet, extended release 25 mg, 1 tab, Route: PO, Drug form: ERTAB, ONCE, Start date: 05/22/17 8:37:00 CD T, Stop date: 05/22/17 8:37:00 CDT Notes: (Same as: Toprol XL) Do Not Crush Start Date: 05/22/17 Stop Date: 05/22/17 Status: Completed Toprol-XL 25 mg oral tablet, extended release 25 mg, 1 tab, Route: PO, Drug form: ERTAB, Daily, Start date: 05/19/17 11:00:00 CDT, Duration: 30 day, Stop date: 06/18/17 9:00:00 CDT Notes: (Same as: Toprol XL) Do Not Crush Start Date: 05/19/17 Stop Date: 05/22/17 Status: Discontinued Toprol-XL 50 mg oral tablet, extended release 50 mg, 1 tab, Route: PO, Drug form: ERTAB, Q12H, Start date: 05/22/17 21:00:00 C DT, Duration: 30 day, Stop date: 06/21/17 9:00:00 CDT Notes: (Same as: Toprol XL) May split tab, but do not crush. Start Date: 05/22/17 Stop Date: 05/24/17 Status: Discontinued tramadol 50 mg, 1 tab, Route: PO, Drug form: TAB, ONCE, Dosing Weight 68.182, kg, Start d ate: 05/15/17 12:33:00 CDT, Stop date: 05/15/17 12:33:00 CDT Notes: Not to exceed 400mg/day. (Same As: Ultram) Start Date: 05/15/17 Stop Date: 05/15/17 Status: Completed Tylenol 325 mg, 1 tab, Route: PO, Drug form: TAB, Q6H, Dosing Weight 68.182, kg, PRN For Temp > 100.4 F, Start date: 05/19/17 0:13:00 CDT, Duration: 30 day, Stop date: 06/18/17 0:12:00 CDT Notes: Do not exceed 4 gm/day. (Same as: Tylenol) Start Date: 05/19/17 Stop Date: 05/25/17 Status: Discontinued Tylenol 325 mg, 1 tab, Route: PO, Drug form: TAB, Q6H, Dosing Weight 68.182, kg, PRN Roger n Score 1-3, Start date: 05/14/17 10:02:00 CDT, Duration: 30 day, Stop date: 10:01:00 CDT Notes: Do not exceed 4 gm/day. (Same as: Tylenol) Start Date: 05/14/17 Stop Date: 05/25/17 Status: Discontinued vancomycin + sodium chloride 0.9% INJ 150 mL 750 mg, Route: IVPB, Drug form: PDR/INJ, [id number], Dosing Weight 68.182, kg, Star t date: 05/19/17 13:00:00 CDT, Stop date: 05/26/17 1:00:00 CDT, ABX Indication: Bacteremia Notes: TIME CRITICAL MEDICATION(Same As: Vancocin)Infusion rate< 1000 mg: infuse over 1 [id number] - 1500 mg: infuse over 1.5 [id number] - 2000 mg: infuse over 2 hours> 2001 mg: infuse over 2.5 hours Start Date: 05/19/17 Stop Date: 05/21/17 Status: Discontinued vancomycin + sodium chloride 0.9% INJ 250 mL 1.25 gm, Route: IV, ONCE, Dosing Weight 68.182, kg, Start date: 05/19/17 0:09:00 CDT, Stop date: 05/19/17 0:09:00 CDT, ABX Indication: Urinary Tract Infection Notes: TIME CRITICAL MEDICATION(Same As: Vancocin)Infusion rate< 1000 mg: infuse over 1 [id number] - 1500 mg: infuse over 1.5 hoursVancomycin FOR IV SET [id number] - 2000 mg: infuse over 2 hours> 2001 mg: infuse over 2.5 hours MEDICATION WASTE Product Size: 1000 mgProduct Wasted: ___ mg Start Date: 05/19/17 Stop Date: 05/19/17 Status: Completed Venofer 200 mg, Route: IVPB, Drug form: INJ, Daily, Dosing Weight 68.182, kg, Start date : 05/17/17 9:00:00 CDT, Duration: 5 doses or times, Stop date: 05/21/17 9:00:00 CDT Start Date: 05/17/17 Stop Date: 05/16/17 Status: Discontinued Visipaque 320mg/ml 150 mL, Route: IVP, Drug Form: SOLN, Dosing Weight 68.182, kg, ONCALL, STAT, Sta rt date: 05/15/17 8:35:00 CDT, Duration: 1 doses or times, Dose=2.2ml/kg, Max d [id number] -- "To be infused by Radiology Staff ONLY" Notes: (Same as: Visipaque).WASTE: F/P - Black; E - Municipal Trash Bin Start Date: 05/15/17 Stop Date: 05/15/17 Status: Completed Vitamin B12 1,000 microgram, 1 tab, Route: PO, Drug form: TAB, Daily, Dosing Weight 68.182, kg, Start date: 05/15/17 9:00:00 CDT, Duration: 7 day, Stop date: 05/21/17 9:00: 00 CDT Notes: (Same As: Vitamin B-12) Start Date: 05/15/17 Stop Date: 05/21/17 Status: Completed Xanax 0.25 mg oral tablet 0.25 mg, 1 tab, Route: PO, Drug form: TAB, Q6H, Dosing Weight 68.182, kg, PRN An xiety, Start date: 05/16/17 10:00:00 CDT, Duration: 30 day, Stop date: 06/15/17 9:59:00 CDT Notes: With food or milk(Same as: Xanax) Start Date: 05/16/17 Stop Date: 05/25/17 Status: Discontinued Results BLOOD BANK RESULTS 1 2 3 Most recent to oldest [Reference Range]: A POS *Unknown* (05/21/17 12:45 AM) A POS *Unknown* (05/19/17 10:49 AM) A POS *Unknown* (05/16/17 4:38 AM) ABO/Rh Negative (05/21/17 12:45 AM) Negative (05/19/17 10:49 AM) Negative (05/16/17 4:38 AM) Antibody Scrn Product available (05/22/17 7:59 AM) FFP product Product available (05/22/17 8:23 AM) Product available (05/22/17 8:00 AM) Product available (05/22/17 7:59 AM) RBC product ELECTROLYTES 1 2 3 Most recent to oldest [Reference Range]: 139 mEq/L (05/25/17 12:11 AM) 135 mEq/L (05/24/17 1:27 AM) 134 mEq/L *LOW* (05/23/17 7:16 PM) Sodium Lvl [135-145 mEq/L] 4.0 mEq/L (05/25/17 12:11 AM) 4.5 mEq/L (05/24/17 1:27 AM) 4.6 mEq/L (05/23/17 7:16 PM) Potassium Lvl [3.5-5.1 mEq/L] 105 mEq/L (05/25/17 12:11 AM) 104 mEq/L (05/24/17 1:27 AM) 103 mEq/L (05/23/17 7:16 PM) Chloride Lvl [95-109 mEq/L] 23 mEq/L *LOW* (05/25/17 12:11 AM) 23 mEq/L *LOW* (05/24/17 1:27 AM) 24 mEq/L (05/23/17 7:16 PM) CO2 [24-32 mEq/L] 15.0 mEq/L (05/25/17 12:11 AM) 12.5 mEq/L (05/24/17 1:27 AM) 11.6 mEq/L (05/23/17 7:16 PM) AGAP [10.0-20.0 mEq/L] CHEM PANEL 1 2 3 Most recent to oldest [Reference Range]: 1.03 mg/dL (05/25/17 12:11 AM) 1.02 mg/dL (05/24/17 1:27 AM) 0.90 mg/dL (05/23/17 7:16 PM) Creatinine Lvl [0.50-1.40 mg/dL] 51 mL/min/1.73m2 1 *NA* (05/25/17 12:11 AM) 52 mL/min/1.73m2 2 *NA* (05/24/17 1:27 AM) 60 mL/min/1.73m2 3 *NA* (05/23/17 7:16 PM) eGFR 36 mg/dL *HI* (05/25/17 12:11 AM) 27 mg/dL *HI* (05/24/17 1:27 AM) 22 mg/dL (05/23/17 7:16 PM) BUN [7-22 mg/dL] 33 *HI* (05/14/17 9:08 AM) B/C Ratio [6-25] 118 mg/dL *HI* (05/25/17 12:11 AM) 237 mg/dL *HI* (05/24/17 1:27 AM) 199 mg/dL *HI* (05/23/17 7:16 PM) Glucose Lvl [70-99 mg/dL] 6.1 g/dL *LOW* (05/23/17 2:20 AM) 5.4 g/dL *LOW* (05/21/17 12:45 AM) 6.0 g/dL *LOW* (05/14/17 9:08 AM) Total Protein [6.4-8.4 g/dL] 3.0 g/dL *LOW* (05/23/17 2:20 AM) 2.5 g/dL *LOW* (05/21/17 12:45 AM) 3.0 g/dL *LOW* (05/14/17 9:08 AM) Albumin Lvl [3.5-5.0 g/dL] 3.1 g/dL (05/23/17 2:20 AM) 2.9 g/dL (05/21/17 12:45 AM) 3.0 g/dL (05/14/17 9:08 AM) Globulin [2.7-4.2 g/dL] 1.0 (05/23/17 2:20 AM) 0.9 (05/21/17 12:45 AM) 1.0 (05/14/17 9:08 AM) A/G Ratio [0.7-1.6] 8.7 mg/dL (05/25/17 12:11 AM) 8.6 mg/dL (05/24/17 1:27 AM) 8.8 mg/dL (05/23/17 7:16 PM) Calcium Lvl [8.5-10.5 mg/dL] 2.2 mg/dL *LOW* (05/25/17 12:11 AM) 4.2 mg/dL (05/24/17 1:27 AM) 3.6 mg/dL (05/23/17 7:16 PM) Phosphorus [2.5-4.5 mg/dL] 2.4 mg/dL (05/25/17 12:11 AM) 1.9 mg/dL (05/24/17 1:27 AM) 1.9 mg/dL (05/23/17 7:16 PM) Magnesium Lvl [1.8-2.4 mg/dL] 25 unit/L (05/23/17 2:20 AM) 24 unit/L (05/21/17 12:45 AM) 30 unit/L (05/14/17 9:08 AM) ALT [0-65 unit/L] 21 unit/L (05/23/17 2:20 AM) 18 unit/L (05/21/17 12:45 AM) 36 unit/L (05/14/17 9:08 AM) AST [0-37 unit/L] 72 unit/L (05/23/17 2:20 AM) 63 unit/L (05/21/17 12:45 AM) 84 unit/L (05/14/17 9:08 AM) Alk Phos [39-136 unit/L] 0.7 mg/dL (05/23/17 2:20 AM) 0.4 mg/dL (05/21/17 12:45 AM) 0.3 mg/dL (05/14/17 9:08 AM) Bili Total [0.2-1.3 mg/dL] 0.2 mg/dL (05/23/17 2:20 AM) 0.2 mg/dL (05/21/17 12:45 AM) Bili Direct [0.0-0.3 mg/dL] 0.5 mg/dL (05/23/17 2:20 AM) 0.2 mg/dL (05/21/17 12:45 AM) Bili Indirect [0.0-1.0 mg/dL] 0.8 mMol/L (05/23/17 7:16 PM) Lactic Acid Lvl [0.5-2.2 mMol/L] 1Result [...] be mul tiplied by the estimated BMI. LIPIDS 1 2 3 Most recent to oldest [Reference Range]: 1.98 *LOW* (05/14/17 9:08 AM) CHD Risk [3.90-5.80] 123 mg/dL (05/14/17 9:08 AM) Chol [<=199 mg/dL] 132 mg/dL (05/14/17 9:08 AM) Trig [<=149 mg/dL] 62 mg/dL (05/14/17 9:08 AM) HDL [>=61 mg/dL] 35 mg/dL (05/14/17 9:08 AM) LDL (Calculated) [<=99 mg/dL] 26 *NA* (05/14/17 9:08 AM) VLDL ANEMIA STUDY 1 2 3 Most recent to oldest [Reference Range]: 98 ug/dl (05/14/17 3:57 PM) Iron [30-160 ug/dl] 324 ng/mL *HI* (05/14/17 3:57 PM) Ferritin Lvl [5-204 ng/mL] 28 % (05/14/17 3:57 PM) % Satur Fe [12-57 %] 255 ug/dl (05/14/17 3:57 PM) UIBC [110-370 ug/dl] 193 pg/mL *LOW* (05/14/17 3:57 PM) Vitamin B12 Lvl [254-1320 pg/mL] 5.7 ng/mL (05/14/17 3:57 PM) Folate Lvl [>=3.0 ng/mL] 942 ng/mL *HI* (05/14/17 3:57 PM) RBC Folate [280-791 ng/mL] 353 ug/dl (05/14/17 3:57 PM) TIBC [228-428 ug/dl] PARATHYROID PROFILE 1 2 3 Most recent to oldest [Reference Range]: 1.07 mMol/L (05/25/17 12:11 AM) 1.07 mMol/L (05/24/17 1:27 AM) 1.16 mMol/L (05/23/17 7:16 PM) Ca Ion WB [1.05-1.25 mMol/L] 1.09 mMol/L (05/25/17 12:11 AM) 1.09 mMol/L (05/24/17 1:27 AM) 1.16 mMol/L (05/23/17 7:16 PM) Ca Norm WB [1.05-1.25 mMol/L] TOXICOLOGY 1 2 3 Most recent to oldest [Reference Range]: 0030 *NA* (05/23/17 2:20 AM) 0100 *NA* (05/21/17 12:45 AM) [facility] *NA* (05/23/17 2:20 AM) 12.0 ug/ml *NA* (05/21/17 12:45 AM) Vanco Tr URINE AND STOOL 1 2 3 Most recent to oldest [Reference Range]: Clear (05/16/17 2:42 AM) Clear (05/14/17 6:31 PM) UA Turbidity [Clear] Light Yellow *NA* (05/16/17 2:42 AM) Yellow *NA* (05/14/17 6:31 PM) UA Color [Yellow] 6.5 (05/16/17 2:42 AM) 5.5 (05/14/17 6:31 PM) UA pH [5.0-8.0] 1.014 (05/16/17 2:42 AM) 1.013 (05/14/17 6:31 PM) UA Spec Grav [<=1.030] 30 mg/dL *ABN* (05/16/17 2:42 AM) Negative mg/dL *NA* (05/14/17 6:31 PM) UA Glucose [Negative mg/dL] Negative (05/16/17 2:42 AM) Negative (05/14/17 6:31 PM) UA Blood [Negative] Negative mg/dL *NA* (05/16/17 2:42 AM) Negative mg/dL *NA* (05/14/17 6:31 PM) UA Ketones [Negative mg/dL] Negative mg/dL (05/16/17 2:42 AM) Negative mg/dL (05/14/17 6:31 PM) UA Protein [Negative mg/dL] <=1.0 mg/dL *NA* (05/16/17 2:42 AM) <=1.0 mg/dL *NA* (05/14/17 6:31 PM) UA Urobilinogen [0.1-1.0 mg/dL] Negative *NA* (05/16/17 2:42 AM) Negative *NA* (05/14/17 6:31 PM) UA Bili [Negative] Large *ABN* (05/16/17 2:42 AM) Large *ABN* (05/14/17 6:31 PM) UA Leuk Est [Negative] Negative (05/16/17 2:42 AM) Negative (05/14/17 6:31 PM) UA Nitrite [Negative] 25 /HPF *HI* (05/16/17 2:42 AM) 33 /HPF *HI* (05/14/17 6:31 PM) UA WBC [0-5 /HPF] 1 /HPF (05/16/17 2:42 AM) 7 /HPF *HI* (05/14/17 6:31 PM) UA RBC [0-2 /HPF] Occasional /HPF *NA* (05/16/17 2:42 AM) Moderate /HPF *ABN* (05/14/17 6:31 PM) UA Bacteria [None Seen /HPF] RARE *NA* (05/16/17 2:42 AM) UA Sq Epi Occasional /LPF *NA* (05/14/17 6:31 PM) UA Sq Epi [Few /LPF] Few /LPF *NA* (05/14/17 6:31 PM) UA Mucus [None Seen /LPF] Occasional /HPF *ABN* (05/16/17 2:42 AM) UA [place] Yeast [None Seen /HPF] Performed *NA* (05/16/17 2:42 AM) Micro? RARE *NA* (05/16/17 2:42 AM) UA Trans Epi [<=0] IMMUNOLOGY 1 2 3 Most recent to oldest [Reference Range]: 14.3 uMol/L *HI* (05/14/17 3:57 PM) Homocyst Tot [3.7-13.9 uMol/L] HEMATOLOGY 1 2 3 Most recent to oldest [Reference Range]: 7.1 K/CMM (05/25/17 12:11 AM) 8.9 K/CMM (05/24/17 1:27 AM) 6.9 K/CMM (05/23/17 2:20 AM) WBC [3.7-10.4 K/CMM] 3.28 M/CMM *LOW* (05/25/17 12:11 AM) 3.48 M/CMM *LOW* (05/24/17 1:27 AM) 3.93 M/CMM *LOW* (05/23/17 2:20 AM) RBC [4.20-5.40 M/CMM] 9.2 g/dL *LOW* (05/25/17 12:11 AM) 9.7 g/dL *LOW* (05/24/17 1:27 AM) 11.0 g/dL *LOW* (05/23/17 2:20 AM) Hgb [12.0-16.0 g/dL] 28.2 % *LOW* (05/25/17 12:11 AM) 29.3 % *LOW* (05/24/17 1:27 AM) 32.5 % *LOW* (05/23/17 2:20 AM) Hct [36.0-48.0 %] 86.1 fL (05/25/17 12:11 AM) 84.1 fL (05/24/17 1:27 AM) 82.8 fL (05/23/17 2:20 AM) MCV [80.0-98.0 fL] 28.2 pg (05/25/17 12:11 AM) 27.8 pg (05/24/17 1:27 AM) 28.0 pg (05/23/17 2:20 AM) MCH [27.0-31.0 pg] 32.7 g/dL (05/25/17 12:11 AM) 33.1 g/dL (05/24/17 1:27 AM) 33.8 g/dL (05/23/17 2:20 AM) MCHC [32.0-36.0 g/dL] 25.9 % *HI* (05/25/17 12:11 AM) 24.7 % *HI* (05/24/17 1:27 AM) 24.1 % *HI* (05/23/17 2:20 AM) RDW [11.5-14.5 %] 176 K/CMM (05/25/17 12:11 AM) 231 K/CMM (05/24/17 1:27 AM) 273 K/CMM (05/23/17 2:20 AM) Platelet [133-450 K/CMM] 7.3 fL *LOW* (05/25/17 12:11 AM) 7.1 fL *LOW* (05/24/17 1:27 AM) 7.3 fL *LOW* (05/23/17 2:20 AM) MPV [7.4-10.4 fL] 73.1 % (05/25/17 12:11 AM) 89.1 % *HI* (05/24/17 1:27 AM) 63.9 % (05/23/17 2:20 AM) Segs [45.0-75.0 %] 15.4 % *LOW* (05/25/17 12:11 AM) 7.2 % *LOW* (05/24/17 1:27 AM) 23.9 % (05/23/17 2:20 AM) Lymphocytes [20.0-40.0 %] 11.0 % (05/25/17 12:11 AM) 3.1 % (05/24/17 1:27 AM) 10.6 % (05/23/17 2:20 AM) Monocytes [2.0-12.0 %] 0.2 % (05/25/17 12:11 AM) 0.1 % (05/24/17 1:27 AM) 0.6 % (05/23/17 2:20 AM) Eosinophils [0.0-4.0 %] 0.3 % (05/25/17 12:11 AM) 0.5 % (05/24/17 1:27 AM) 1.0 % (05/23/17 2:20 AM) Basophils [0.0-1.0 %] 5.2 K/CMM (05/25/17 12:11 AM) 7.9 K/CMM (05/24/17 1:27 AM) 4.4 K/CMM (05/23/17 2:20 AM) Segs-Bands # [1.5-8.1 K/CMM] 1.1 K/CMM (05/25/17 12:11 AM) 0.6 K/CMM *LOW* (05/24/17 1:27 AM) 1.6 K/CMM (05/23/17 2:20 AM) Lymphocytes # [1.0-5.5 K/CMM] 0.8 K/CMM (05/25/17 12:11 AM) 0.3 K/CMM (05/24/17 1:27 AM) 0.7 K/CMM (05/23/17 2:20 AM) Monocytes # [0.0-0.8 K/CMM] 0.1 K/CMM (05/21/17 12:45 AM) Eosinophils # [0.0-0.5 K/CMM] 0.1 K/CMM (05/23/17 2:20 AM) 0.1 K/CMM (05/21/17 12:45 AM) Basophils # [0.0-0.2 K/CMM] 1+ *ABN* (05/25/17 12:11 AM) 1+ *ABN* (05/24/17 1:27 AM) 1+ *ABN* (05/23/17 2:20 AM) Anisocyte [None Seen] 1+ (05/14/17 9:08 AM) Hypochrom [None Seen] 1+ *ABN* (05/17/17 12:04 AM) 1+ *ABN* (05/15/17 12:53 AM) 1+ *ABN* (05/14/17 9:08 AM) Microcyte [None Seen] Peripheral blood smear shows hypochromic microcytic anemia with anisopoikilocytosis, a few elliptocytes, moderate polychromasia. Impression: findings are most consistent with iron deficiency anemia with partial response to iron treatment. Clinical correlation is suggested. CPT: 45890 *NA* (05/14/17 3:57 PM) PB Smear Path 4.0 % *HI* (05/14/17 3:57 PM) Retic Auto [0.5-1.5 %] 14.9 seconds *HI* (05/25/17 12:11 AM) 14.4 seconds (05/24/17 1:27 AM) 14.3 seconds (05/23/17 7:16 PM) PT [12.0-14.7 seconds] 1.15 (05/25/17 12:11 AM) 1.10 (05/24/17 1:27 AM) 1.09 (05/23/17 7:16 PM) INR [0.85-1.17] 38.0 seconds *HI* (05/25/17 12:11 AM) 41.6 seconds *HI* (05/24/17 1:27 AM) 24.9 seconds (05/23/17 7:16 PM) PTT [22.9-35.8 seconds] Immunizations Given and Recorded Vaccine Date Status [...] refused 3Admin Note: pt got it at [facility]=apr 2012 4Result Comment: changed her mind [...] ago Assessment and Plan Extracted from: Title: Discharge Summary Author: Luis Eduardo Olivas MD Date: 05/25/17 ADMISSION DATE: 05/14/2017 DISCHARGE DATE: 05/25/2017 ADMITTING PHYSICIAN: Dr. Kevin Castellanos DISCHARGING PHYSICIAN: Dr. Iftikhar Bedolla ADMISSION DIAGNOSIS: severe aortic stenois, bacterial UTI, angiodysplasis of GI tract, atrial fibrillation, CAD, HTN, HLD DISCHARGE DIAGNOSIS: severe aortic stenois s/p TAVR, bacterial UTI, angiodysplasis of GI tract, atrial fibrillation, CAD, HTN, HLD SERVICE: CCU CONSULTS: ID PROCEDURES: Transcatheter aortic valve replacement (TAVR) utilizing a #29 EvolutR pericardial valve via RIGHT groin under conscious sedation, Percutaneous access of the right and left common femoral artery, Percutaneous access of the right and left common femoral vein, Balloon aortic valvuloplasty, RAFITA ECHO. HPI: Mrs. 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 COURSE: She had a repeat echo done, PFTs, and CT Tavr pretreated for iodine allergy before TAVR. Before the procedure, she was diagnosed with a bacterial UTI and was properly treated with antibiotics. After UTI resolved she was transfued a total of 3 units of PRBCs for anemia likely due to angiodysplasia and underwent TAVR with no complications. Cardiac rehab was provided and PT and OT was provided. DISCHARGE CONDITION: Stable DISPOSITION: Home ACTIVITY: No strenous activity DIET: Heart healthy and low carbohydrate MEDICATIONS: Asprin 81, pantoprazole 40, clopidogrel 75, effoxer XR 150, lisinopril 20, levothyroxine 150, gabapentin 300, donepezil 10, atorvastatin 40, amiodarone 200, ranitidine 150. INSTRUCTIONS: No strenous activity. Follow heart healthy and low carb diet. FOLLOW UP: Dr. Castellanos in 2 weeks. Primary care physician in 1 week. Physical Exam GEN: NAD, AAOx3, NC/AT HEENT: EOMI, PERRL, no JVD, no scleral icterus CARDIO: RRR, normal S1 and S2, no murmurs, rubs, gallops, lifts heaves thrills RESP: CTAB, no wheezes, crackles ABD: soft, +BS, ND, NT, no masses felt EXT: no LE edema, distal pulses intact MSK: 5/5 strength bilaterally, full ROM NEURO: CN II - XII grossly intact, gait normal. sensation intact bilaterally SKIN: no rashes, skin changes, skin breakdown PSYCH: no HI/SI, no AH/VH Extracted from: Title: Cardiology Attending Note Author: Iftikhar Bedolla MD Date: 05/25/17 I have seen the patient in collaboration with the housestaff (resident and/or fellow). I have examined the patient independantly, and have reviewed any history, radiographic and cardiac imaging, and diagnostic testing. I agree with the findings and plan outlined in the note by the resident with the following additions/modifications: -severe with Heyde syndrome s/p GLADIS -Hgb and hemodynamics stable -ready for discharge home Extracted from: Title: [facility] Author: Lanette Kaye MD Date: 05/23/17 Operative Note PATIENT NAMEShamika Reed [id number] DATE of OPERATION:05-23-17 PREOPERATIVE DIAGNOSIS:1. Severe symptomatic aortic stenosis 2. Hypertension 3. Hyperlipidemia 4. Coronary artery disease s/p CABG 5. Hypothyroid 6. Right pseudoaneurysm 7. STS 11.9% POSTOPERATIVE DIAGNOSIS:Same PRIMARY SURGEON:Sae Kaye MD CARDIOLOGISTSKevin Castellanos MD CABLE SPLICING TECHNICIAN: ANESTHESIOLOGIST:Ki Sanchez MD REFERRING CARDIOLOGISTS:Maggie Kidd MD POSTOPERATIVE DIAGNOSIS:Same OPERATION:1. Transcatheter aortic valve replacement (TAVR) utilizing a #29 EvolutR pericardial valve via RIGHT groin under conscious sedation 2. Percutaneous access of the right and left common femoral artery 3. Percutaneous access of the right and left common femoral vein 4. Balloon aortic valvuloplasty 5. RAFITA ECHO FINDINGS: 1. Moderate calcifications in the aortic valve. 2. The delivery system was passed without significant difficulty into the right iliac vessel. 3. Post replacement RAFITA revealed mild paravalvular leak. INDICATIONS:The risks and benefits were explained to the patient. The patient is HIGH RISK (STS 11.9%) candidate for open AVR and discussed at our heart valve conference. This is due to the patient s frailty and poor rehabilitation potential. The STS risk score was discussed with the patient. The patient was evaluated by Dr. Benitez Chadwick and myself and we believe that the patient would benefit from a TAVR. PROCEDURE IN DETAIL: Further details will be dictated by Dr. Kevin Castellanos as he was the roll up helper. The patient was brought into the cardiac clam bed laborer. A time-out procedure was performed which confirmed the patient s name, MRN, and procedure to be performed. The patient was placed in the supine position on the operating table and administered conscious sedation by our anesthesiologists. The chest, abdomen and groins were prepped and draped in the usual sterile manner. Access was obtained in the right common femoral artery, as well as right common femoral vein. Preclose devices were used (Proglide) at introduction for the device delivery side. Pacing was also placed in the RIGHT common femoral vein. Heparin was given intravenously, 1 mg/ml to maintain an ACT > 250 seconds. The RIGHT common femoral artery was prepared. Subsequently, test pacing was performed and obtained as expected at 180 beats per minute. An aortic angiogram root shot was performed, noting the optimal angle for deployment of the valve. This confirmed the position already determined by CT angiogram 3-D reconstruction. Subsequently, the #29 EvolutR transcatheter valve was placed into the RIGHT femoral artery and brought up through the aortic valve and placed in correct position. This was confirmed by the heart valve team. The valve was deployed in the aortic annulus appropriately. Post-placement TTE revealed good placement of the valve with mild PVL. Subsequently, the sheaths were removed. The femoral artery was closed using the Perclose device. All wounds were then closed and sterile dressings were applied. Due to the complexity of this operation requiring both Cardiac Surgery and Interventional Cardiology skill sets, both Dr. Kevin Castellanos and I are billing as co-surgeons. I was present for the entire procedure. Extracted from: Title: [facility] Consult Note Author: Lanette Kaye MD Date: 05/21/17 Ms. Reed is an 81 yo female with PMH severe , HTN, CAD s/p CABGx2 2008, a fib, HTN, DM, asthma, former smoker, hypothyroid, chronic anemia, UTI, COLTON 70- 79%, LICA 51-69%, right psuedoaneurysm and STS score of 11.9%. Her TTE reveals an TRELL of 0.7 cm2, and a peak velocity of 4.2 m/s. Her CT scan reveals an aortic annular area of 413 mm2. She was presented at our multidisciplinary heart valve conference and was personally examined by myself and Dr. Benitez Chadwick. We believe the patient is high risk operable for open aortic valve replacement. Thus, we will proceed with Commercial TAVR, planned transfemoral approach via percutaneous/surgical access with a 29 mm EvolutR. The STS score risk calculation was discussed with the patient. I spent more than 50 minutes evaluating the patient with more than 50% of the time spent counseling and coordinating care.
--- OUTSIDE RECORDS SUMMARY | 2018-08-13 18:28 | XMS REPORT | Summary of Care ---
Author Author [facility] Address Unknown Phone Unavailable Encounter TREVON Frias(FIN) [id number] Date(s): 12/03/17 - 12/04/17 [facility] [address] [place] [address], [address] [place] [address]- [phone] Vital Signs No data available for this section Problem List Condition Effective Dates Status Health Status Informant Allergic Active rhinitis(Confirmed) Alzheimer's Active disease(Confirmed) Anemia due to blood Active loss(Confirmed) Anxiety(Confirmed) Active Atrial Resolved fibrillation(Confirm ed) Back pain(Confirmed) Active Benign Active hypertension(Confirm ed) CAD - Coronary Active artery disease(Confirmed) Chronic kidney Active disease (CKD), stage III (moderate)(Confirmed ) AVM (arteriovenous Active malformation)(Confir med) COPD(Confirmed) Active Depression(Confirmed Active ) Diabetes mellitus Active with kidney disease(Confirmed) Gastroparesis(Confir Active med) S/P aortic valve Active repair(Confirmed) History of 08/19/99 Active Parkinson's disease(Confirmed) History of Resolved fall(Confirmed) Hyperlipidemia(Confi Active rmed) Hypothyroidism(Confi Active rmed) Urinary Active frequency(Confirmed) OA - Active Osteoarthritis(Confi rmed) Obesity(Confirmed) Active Obstructive sleep Active apnea(Confirmed) Unsteady Active gait(Confirmed) Weight Active loss(Confirmed) Allergies, Adverse Reactions, Alerts Substance Reaction Severity Status sulfa drugs Active ciprofloxacin Active erythromycin1 Active cefuroxime Active penicillin2 Active trimethoprim Active Iodine [facility] Active 1rash all over body 2rash all over body Medications No data available for this section Results No data available for this section Immunizations Given and Recorded Vaccine Date Status Refusal Reason influenza virus vaccine, inactivated1 05/23/17 Given influenza virus vaccine, inactivated2 05/21/17 Given influenza virus vaccine, inactivated 06/22/16 Given influenza virus vaccine, inactivated 06/30/14 Given pneumococcal 23-valent vaccine3 05/23/17 Given pneumococcal 13-valent vaccine4 03/11/14 Given Not Given Vaccine Date Status Refusal Reason influenza virus vaccine, inactivated 05/25/17 Not Given Patient Refuses pneumococcal 23-valent vaccine 06/18/17 Not Given Patient Refuses 1Result Comment: changed her mind 2Result Comment: pt refused 3Result Comment: changed her mind 4Admin Note: pt got it at [facility]=apr 2012 Procedures Procedure Date Related Diagnosis Body Site Status TAVR - Transcatheter aortic valve replacement 05/23/17 Completed dual cardiac Bypass1 01/14/10 Completed Caesarean section 08/19/60 Completed Abdominal hysterectomy 08/19/57 Completed Appendectomy Completed Back fusion Completed Bladder implantation2 Completed Cholecystectomy Completed Hysterectomy Completed Replacement of aortic valve Completed TKR -Total prosthetic replacement of knee Completed joint using cement 1pt had 2 bypass [...] Days No; Reg Smoking Cessation Counseling No2 entered on: 12/02/17 1up to the bathroom. 2pt quit 33 yrs ago Assessment and Plan No data available for this section
--- OUTSIDE RECORDS SUMMARY | 2018-08-13 18:28 | XMS REPORT | Summary of Care ---
Author Author [facility] Care [facility] Organization [facility] Address Unknown Phone Unavailable Encounter HQ Edie_misha(FIN) [id number] Date(s): 07/31/17 - 07/31/17 [facility] [address], [address] [place] [address]- [phone] Attending Physician: Miya Cast DO Referring Physician: Rowena Kay MD Vital Signs No data available for this section Problem List Condition Effective Dates Status Health Status Informant Alzheimer's Active disease(Confirmed) Angiodysplasia(Confi Active rmed) Anxiety(Confirmed) Active Atrial Active fibrillation(Confirm ed) Benign Active hypertension(Confirm ed) CAD - Coronary Active artery disease(Confirmed) Chronic kidney Active disease (CKD), stage III (moderate)(Confirmed ) COPD(Confirmed) Active Depression(Confirmed Active ) 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) Fatigue(Confirmed) Active Hearing Active loss(Confirmed) S/P aortic valve Active repair(Confirmed) History of 08/19/99 Active Parkinson's disease(Confirmed) History of Resolved fall(Confirmed) Hyperlipidemia(Confi Active rmed) Hypothyroidism(Confi Active rmed) OA - Active Osteoarthritis(Confi rmed) Obesity(Confirmed) Active Obstructive sleep Active apnea(Confirmed) Allergies, Adverse Reactions, Alerts Substance Reaction Severity Status sulfa drugs Active ciprofloxacin Active erythromycin Active cefuroxime Active penicillin Active trimethoprim Active Iodine SNF Active Medications No data available for this [...] mind 4Admin Note: pt got it at [facility]=apr 2012 Procedures Procedure Date Related Diagnosis Body Site 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
--- OUTSIDE RECORDS SUMMARY | 2018-08-13 18:28 | XMS REPORT | Summary of Care ---
Author Author [facility] Organization [facility] Address Unknown Phone Unavailable Encounter TREVON Frias(KIRSTIE) [id number] Date(s): 07/30/17 - 08/01/17 [facility] [address] [place] [address]- Discharge Disposition: Home or Self Care Attending Physician: Nick Mott MD Admitting Physician: Nick Mott MD Vital Signs 1 2 3 Most recent to oldest [Reference Range]: 149.86 cm (07/31/17 4:19 AM) 149.86 cm (07/30/17 9:14 PM) Height 98.3 DegF (08/01/17 12:00 PM) 98.1 DegF (08/01/17 8:00 AM) 97.7 DegF (08/01/17 4:00 AM) Temperature Oral [96.4-99.1 DegF] 149/45 mmHg *HI* (08/01/17 12:00 PM) 137/55 mmHg (08/01/17 10:00 AM) 142/47 mmHg *HI* (08/01/17 8:00 AM) Blood Pressure [90-140/60-90 mmHg] 20 BRMIN (08/01/17 12:00 PM) 12 BRMIN *LOW* (08/01/17 11:00 AM) 20 BRMIN (08/01/17 10:00 AM) Respiratory Rate [14-20 BRMIN] 81 bpm (07/30/17 9:14 PM) Peripheral Pulse Rate [60-100 bpm] 72.926 kg (07/31/17 4:19 AM) 68.182 kg (07/30/17 9:14 PM) Weight 32.47 m2 (07/31/17 4:19 AM) 30.36 m2 (07/30/17 9:14 PM) Body Mass Index Problem List Condition [...] cefuroxime Active penicillin Active trimethoprim Active Iodine CUSTODIAL Active Medications acetaminophen 325 mg, 1 tab, Route: PO, Drug form: TAB, Q4H, Dosing Weight 68.182, kg, PRN Roger n Score 4-6, Start date: 07/31/17 0:09:00 BULK COOLER INSTALLER, Duration: 30 day, Stop date: 08/19 10/06 0:08:00 BULK COOLER INSTALLER Notes: Do not exceed 4 gm/day. (Same as: Tylenol) Start Date: 07/31/17 Stop Date: 08/01/17 Status: Discontinued ALPRAZOLam 0.5 mg oral tablet 0.5 mg=1 tab, PO, BID, PRN anxiety, stress, # 20 tab, 0 Refill(s) Start Date: 07/31/17 Stop Date: 08/10/17 Status: Ordered ALPRAZOLam 0.5 mg oral tablet 0.5 mg, 1 tab, Route: PO, Drug form: TAB, BID, Dosing Weight 72.926, kg, PRN as needed for anxiety, Start date: 07/31/17 16:58:00 BULK COOLER INSTALLER, Duration: 30 day, Stop da te: 08/30/17 16:57:00 BULK COOLER INSTALLER Notes: With food or milk(Same as: Xanax) Start Date: 07/31/17 Stop Date: 08/01/17 Status: Discontinued AMIODarone 200 mg, 1 tab, Route: PO, Drug form: TAB, Bedtime, Dosing Weight 72.926, kg, Sta rt date: 07/31/17 21:00:00 BULK COOLER INSTALLER, Duration: 30 day, Stop date: 08/29/17 21:00:[address] Notes: (Same as: Cordarone) Start Date: 07/31/17 Stop Date: 08/01/17 Status: Discontinued aspirin 81 mg tablet, enteric coated 81 mg, 1 tab, Route: PO, Drug form: ECTAB, Daily, Dosing Weight 72.926, kg, Star t date: 07/31/17 17:30:00 BULK COOLER INSTALLER, Duration: 30 day, Stop date: 08/30/17 9:00:00 BULK COOLER INSTALLER Notes: Do not crush or chew.(Same As: Ecotrin) Start Date: 07/31/17 Stop Date: 08/01/17 Status: Discontinued atorvastatin 40 mg, 1 tab, Route: PO, Drug form: TAB, Bedtime, Dosing Weight 72.926, kg, Star t date: 07/31/17 21:00:00 BULK COOLER INSTALLER, Duration: 30 day, Stop date: 08/29/17 21:00:00 CS T Notes: (Same as: Lipitor) Start Date: 07/31/17 Stop Date: 08/01/17 Status: Discontinued clopidogrel 75 mg, 1 tab, Route: PO, Drug form: TAB, Daily, Dosing Weight 72.926, kg, Start date: 08/01/17 9:00:00 BULK COOLER INSTALLER, Duration: 30 day, Stop date: 08/30/17 9:00:00 BULK COOLER INSTALLER Notes: (Same As: Plavix) Start Date: 08/01/17 Stop Date: 08/01/17 Status: Discontinued Dextrose 50% Syringe 12.5 gm, 25 mL, Route: IVP, Drug Form: INJ, Dosing Weight 72.926, kg, PRN, PRN B lood Glucose Results, Start date: 07/31/17 13:20:00 BULK COOLER INSTALLER, Duration: 30 day, Stop date: 08/30/17 13:19:00 BULK COOLER INSTALLER Start Date: 07/31/17 Stop Date: 08/01/17 Status: Discontinued Dextrose 50% Syringe 25 gm, 50 mL, Route: IVP, Drug Form: INJ, Dosing Weight 72.926, kg, PRN, PRN Blo od Glucose Results, Start date: 07/31/17 13:20:00 BULK COOLER INSTALLER, Duration: 30 day, Stop da te: 08/30/17 13:19:00 BULK COOLER INSTALLER Start Date: 07/31/17 Stop Date: 08/01/17 Status: Discontinued donepezil 10 mg, 2 tab, Route: PO, Drug form: TAB, Bedtime, Dosing Weight 72.926, kg, Star t date: 07/31/17 21:00:00 BULK COOLER INSTALLER, Duration: 30 day, Stop date: 08/29/17 21:00:00 CS T Notes: (Same as: Aricept) Start Date: 07/31/17 Stop Date: 08/01/17 Status: Discontinued Effexor XR 150 mg, 1 cap, Route: PO, Drug form: ERCAP, Bedtime, Dosing Weight 72.926, kg, S tart date: 07/31/17 21:00:00 BULK COOLER INSTALLER, Duration: 30 day, Stop date: 08/29/17 21:00:00 BULK COOLER INSTALLER Notes: Do not open, crush, or chew. (Same As: Effexor XR) Start Date: 07/31/17 Stop Date: 08/01/17 Status: Discontinued ferrous sulfate 325 mg oral enteric coated tablet 325 mg=1 tab, PO, BID, # 60 tab, 0 Refill(s), Pharmacy: [id number] Start Date: 08/01/17 Stop Date: 08/31/17 Status: Ordered glucagon 1 mg, Route: IM, Drug form: PDR/INJ, PRN, Dosing Weight 72.926, kg, PRN Blood Gl ucose Results, Start date: 07/31/17 13:20:00 BULK COOLER INSTALLER, Duration: 30 day, Stop date: 0 08/30/17 13:19:00 BULK COOLER INSTALLER Start Date: 07/31/17 Stop Date: 08/01/17 Status: Discontinued insulin lispro 10 unit, 0.1 mL, Route: SUB-Q, Drug form: SOLN, TID-Before Meals, Dosing Weight 72.926, kg, PRN Blood Glucose Results, Start date: 07/31/17 13:20:00 BULK COOLER INSTALLER, Durati on: 30 day, Stop date: 08/30/17 13:19:00 BULK COOLER INSTALLER Notes: Roll in palms of hands gently; Do not shake `vigorously. ([facility]Single Patient Use Only "WASTE: F/P - Black; E - Municipal Trash Bin Stabl e for 28 days at room temperature.Expires in days from Date Start Date: 07/31/17 Stop Date: 08/01/17 Status: Discontinued insulin lispro 6 unit, 0.06 mL, Route: SUB-Q, Drug form: SOLN, TID-Before Meals, Dosing Weight 72.926, kg, PRN Blood Glucose Results, Start date: 07/31/17 13:20:00 BULK COOLER INSTALLER, Durati on: 30 day, Stop date: 08/30/17 13:19:00 BULK COOLER INSTALLER Notes: Roll in palms of hands gently; Do not shake `vigorously. (Same as: [facility] )"Single Patient Use Only "WASTE: F/P - Black; E - Municipal Trash Bin Stabl e for 28 days at room temperature.Expires in days from Date Start Date: 07/31/17 Stop Date: 08/01/17 Status: Discontinued insulin lispro 8 unit, 0.08 mL, Route: SUB-Q, Drug form: SOLN, TID-Before Meals, Dosing Weight 72.926, kg, PRN Blood Glucose Results, Start date: 07/31/17 13:20:00 BULK COOLER INSTALLER, Durati on: 30 day, Stop date: 08/30/17 13:19:00 BULK COOLER INSTALLER Notes: Roll in palms of hands gently; Do not shake `vigorously. (Same as: [facility] )"Single Patient Use Only "WASTE: F/P - Black; E - Municipal Trash Bin Stabl e for 28 days at room temperature.Expires in days from Date Start Date: 07/31/17 Stop Date: 08/01/17 Status: Discontinued insulin lispro 2 unit, 0.02 mL, Route: SUB-Q, Drug form: SOLN, TID-Before Meals, Dosing Weight 72.926, kg, PRN Blood Glucose Results, Start date: 07/31/17 13:20:00 BULK COOLER INSTALLER, Durati on: 30 day, Stop date: 08/30/17 13:19:00 BULK COOLER INSTALLER Notes: Roll in palms of hands gently; Do not shake `vigorously. (Same as: [facility] )"Single Patient Use Only "WASTE: F/P - Black; E - Municipal Trash Bin Stabl e for 28 days at room temperature.Expires in days from Date Start Date: 07/31/17 Stop Date: 08/01/17 Status: Discontinued insulin lispro 4 unit, 0.04 mL, Route: SUB-Q, Drug form: SOLN, TID-Before Meals, Dosing Weight 72.926, kg, PRN Blood Glucose Results, Start date: 07/31/17 13:20:00 BULK COOLER INSTALLER, Durati on: 30 day, Stop date: 08/30/17 13:19:00 BULK COOLER INSTALLER Notes: Roll in palms of hands gently; Do not shake `vigorously. (Same as: [facility] )"Single Patient Use Only "WASTE: F/P - Black; E - Municipal Trash Bin Stabl e for 28 days at room temperature.Expires in days from Date Start Date: 07/31/17 Stop Date: 08/01/17 Status: Discontinued Lantus Solostar Pen 100 units/mL subcutaneous solution 20 unit, 0.2 mL, Route: SUB-Q, Drug form: SOLN, Bedtime, Dosing Weight 72.926, k g, Start date: 07/31/17 21:00:00 BULK COOLER INSTALLER, Duration: 30 day, Stop date: 08/29/17 21:0 0:00 BULK COOLER INSTALLER Notes: (Same as: Lantus)Do not hold insulin without contacting prescriberWASTE: F/P - Black; E - Municipal Trash Bin "single patient use only" Start Date: 07/31/17 Stop Date: 08/01/17 Status: Discontinued levothyroxine 150 microgram, 1 tab, Route: PO, Drug form: TAB, Daily, Dosing Weight 72.926, kg , Start date: 08/01/17 6:30:00 BULK COOLER INSTALLER, Duration: 30 day, Stop date: 08/30/17 6:30:0 0 BULK COOLER INSTALLER Notes: Take 1 hour before or 2 hours after meal; Enteral feeds may interefere wi th the absorption of this medication. (Same as: Levothroid) Start Date: 08/01/17 Stop Date: 08/01/17 Status: Discontinued lisinopril 20 mg, 1 tab, Route: PO, Drug form: TAB, Daily, Dosing Weight 72.926, kg, Start date: 08/01/17 9:00:00 BULK COOLER INSTALLER, Duration: 30 day, Stop date: 08/30/17 9:00:00 BULK COOLER INSTALLER Notes: (Same as: Prinivil, Zestril) Start Date: 08/01/17 Stop Date: 08/01/17 Status: Discontinued magnesium citrate 1.745 g/30 mL oral liquid 300 ml, Route: PO, Drug Form: LIQ, Dosing Weight 72.926, kg, ONCE, Start date: 10/01/16 9:50:00 BULK COOLER INSTALLER, Stop date: 07/31/17 9:50:00 BULK COOLER INSTALLER Notes: (Same as: Citrate of Magnesia)Concentration: 1.745 gm / 30 mL Start Date: 07/31/17 Stop Date: 07/31/17 Status: Completed ondansetron 4 mg, 2 mL, Route: IVP, Drug form: INJ, Q6H, Dosing Weight 68.182, kg, PRN Nause a & Vomiting, Start date: 07/31/17 0:09:00 BULK COOLER INSTALLER, Duration: 30 day, Stop date: 08/30/17 0:08:00 BULK COOLER INSTALLER Notes: (Same as: Zofran) MEDICATION WASTE Product Size: 4 mgProduct Was jeffrey: ___ mg Start Date: 07/31/17 Stop Date: 08/01/17 Status: Discontinued pantoprazole 40 mg, 1 tab, Route: PO, Drug form: ECTAB, Daily, Dosing Weight 72.926, kg, Star t date: 08/01/17 9:00:00 BULK COOLER INSTALLER, Duration: 30 day, Stop date: 08/30/17 9:00:00 BULK COOLER INSTALLER Notes: Tablet should not be chewed or crushed.(Same as: Protonix) Start Date: 08/01/17 Stop Date: 08/01/17 Status: Discontinued ranitidine 50 mg, PO, BID, 0 Refill(s) Start Date: 07/31/17 Status: Ordered tizanidine 2 mg, 0.5 tab, Route: PO, Drug form: TAB, BID, Dosing Weight 72.926, kg, PRN as needed for muscle spasm, Start date: 07/31/17 4:30:00 BULK COOLER INSTALLER, Duration: 30 day, Sto p date: 08/30/17 4:29:00 BULK COOLER INSTALLER Notes: (Same As: Zanaflex) Start Date: 07/31/17 Stop Date: 08/01/17 Status: Discontinued Toprol-XL 25 mg oral tablet, extended release 50 mg, 1 tab, Route: PO, Drug form: ERTAB, Daily, Start date: 08/01/17 9:00:[address], Duration: 30 day, Stop date: 08/30/17 9:00:00 BULK COOLER INSTALLER Notes: (Same as: Toprol XL) May split tab, but do not crush. Start Date: 08/01/17 Stop Date: 08/01/17 Status: Discontinued Venofer + Sodium Chloride 0.9% IV 90 mL 200 mg, 10 mL, Route: IVPB, Daily, Dosing Weight 72.926, kg, Start date: 7 9:00:00 BULK COOLER INSTALLER, Duration: 5 doses or times, Stop date: 08/05/17 9:00:00 BULK COOLER INSTALLER Notes: Each 5ml contains 100mg elemental iron. Mix with NSNon-Formulary(Same as :Venofer)Administer IV only. MEDICATION WASTE Product Size: [address] Wasted: ___ mg Start Date: 08/01/17 Stop Date: 08/01/17 Status: Discontinued Results BLOOD BANK RESULTS 1 2 3 Most recent to oldest [Reference Range]: A POS *Unknown* (07/30/17 11:10 PM) ABO/Rh Negative (07/30/17 11:10 PM) Antibody Scrn Product available 1 (07/31/17 9:50 AM) Product available 2 (07/30/17 11:01 PM) RBC product 1Result Comment: 07/31/2017 10:25 [id number] notified dionne blood is ready for cone picker 2Result Comment: 07/31/2017 00:14 [id number] notified nurse ELECTROLYTES 1 2 3 Most recent to oldest [Reference Range]: 138 mEq/L (08/01/17 3:58 AM) 140 mEq/L (07/31/17 7:44 AM) 137 mEq/L (07/30/17 10:38 PM) Sodium Lvl [135-145 mEq/L] 4.7 mEq/L (08/01/17 3:58 AM) 4.4 mEq/L (07/31/17 7:44 AM) 4.1 mEq/L (07/30/17 10:38 PM) Potassium Lvl [3.5-5.1 mEq/L] 103 mEq/L (08/01/17 3:58 AM) 105 mEq/L (07/31/17 7:44 AM) 102 mEq/L (07/30/17 10:38 PM) Chloride Lvl [95-109 mEq/L] 28 mEq/L (08/01/17 3:58 AM) 27 mEq/L (07/31/17 7:44 AM) 28 mEq/L (07/30/17 10:38 PM) CO2 [24-32 mEq/L] 11.7 mEq/L (08/01/17 3:58 AM) 12.4 mEq/L (07/31/17 7:44 AM) 11.1 mEq/L (07/30/17 10:38 PM) AGAP [10.0-20.0 mEq/L] CHEM PANEL 1 2 3 Most recent to oldest [Reference Range]: 0.92 mg/dL (08/01/17 3:58 AM) 0.90 mg/dL (07/31/17 7:44 AM) 1.07 mg/dL (07/30/17 10:38 PM) Creatinine Lvl [0.50-1.40 mg/dL] 58 mL/min/1.73m2 1 *NA* (08/01/17 3:58 AM) 60 mL/min/1.73m2 2 *NA* (07/31/17 7:44 AM) 48 mL/min/1.73m2 3 *NA* (07/30/17 10:38 PM) eGFR 14 mg/dL (08/01/17 3:58 AM) 16 mg/dL (07/31/17 7:44 AM) 19 mg/dL (07/30/17 10:38 PM) BUN [7-22 mg/dL] 18 (07/31/17 7:44 AM) 18 (07/30/17 10:38 PM) B/C Ratio [6-25] 121 mg/dL *HI* (08/01/17 3:58 AM) 166 mg/dL *HI* (07/31/17 7:44 AM) 214 mg/dL *HI* (07/30/17 10:38 PM) Glucose Lvl [70-99 mg/dL] 5.1 g/dL *LOW* (07/31/17 7:44 AM) 6.3 g/dL *LOW* (07/30/17 10:38 PM) Total Protein [6.4-8.4 g/dL] 2.9 g/dL *LOW* (07/31/17 7:44 AM) 3.2 g/dL *LOW* (07/30/17 10:38 PM) Albumin Lvl [3.5-5.0 g/dL] 2.2 g/dL *LOW* (07/31/17 7:44 AM) 3.1 g/dL (07/30/17 10:38 PM) Globulin [2.7-4.2 g/dL] 1.3 (07/31/17 7:44 AM) 1.0 (07/30/17 10:38 PM) A/G Ratio [0.7-1.6] 8.0 mg/dL *LOW* (08/01/17 3:58 AM) 8.0 mg/dL *LOW* (07/31/17 7:44 AM) 8.4 mg/dL *LOW* (07/30/17 10:38 PM) Calcium Lvl [8.5-10.5 mg/dL] 12 unit/L (07/31/17 7:44 AM) 17 unit/L (07/30/17 10:38 PM) ALT [0-65 unit/L] 10 unit/L (07/31/17 7:44 AM) 17 unit/L (07/30/17 10:38 PM) AST [0-37 unit/L] 60 unit/L (07/31/17 7:44 AM) 68 unit/L (07/30/17 10:38 PM) Alk Phos [39-136 unit/L] 0.9 mg/dL (07/31/17 7:44 AM) 0.2 mg/dL (07/30/17 10:38 PM) Bili Total [0.2-1.3 mg/dL] 1Result Comment: The [...] 3 Most recent to oldest [Reference Range]: 53 unit/L (07/30/17 10:38 PM) Total CK [12-191 unit/L] <0.5 ng/mL (07/30/17 10:38 PM) CK MB [0.5-3.6 ng/mL] <0.9 (07/30/17 10:38 PM) CK MB Index [0.0-2.5] <0.02 ng/mL (07/30/17 10:38 PM) Troponin-I [0.00-0.40 ng/mL] 119 pg/mL *HI* (07/30/17 10:38 PM) BNP [<=100 pg/mL] HEMATOLOGY 1 2 3 Most recent to oldest [Reference Range]: 4.6 K/CMM (08/01/17 3:58 AM) 3.9 K/CMM (07/31/17 7:44 AM) 4.4 K/CMM (07/30/17 10:38 PM) WBC [3.7-10.4 K/CMM] 3.45 M/CMM *LOW* (08/01/17 3:58 AM) 2.61 M/CMM *LOW* (07/31/17 7:44 AM) 2.14 M/CMM *LOW* (07/30/17 10:38 PM) RBC [4.20-5.40 M/CMM] 9.7 g/dL *LOW* (08/01/17 3:58 AM) 7.2 g/dL *LOW* (07/31/17 7:44 AM) 5.6 g/dL 1 *CRIT* (07/30/17 10:38 PM) Hgb [12.0-16.0 g/dL] 29.0 % *LOW* (08/01/17 3:58 AM) 21.8 % *LOW* (07/31/17 7:44 AM) 18.1 % *CRIT* (07/30/17 10:38 PM) Hct [36.0-48.0 %] 83.8 fL (08/01/17 3:58 AM) 83.7 fL (07/31/17 7:44 AM) 84.5 fL (07/30/17 10:38 PM) MCV [80.0-98.0 fL] 28.1 pg (08/01/17 3:58 AM) 27.6 pg (07/31/17 7:44 AM) 26.3 pg *LOW* (07/30/17 10:38 PM) MCH [27.0-31.0 pg] 33.5 g/dL (08/01/17 3:58 AM) 32.9 g/dL (07/31/17 7:44 AM) 31.1 g/dL *LOW* (07/30/17 10:38 PM) MCHC [32.0-36.0 g/dL] 17.5 % *HI* (08/01/17 3:58 AM) 18.1 % *HI* (07/31/17 7:44 AM) 19.6 % *HI* (07/30/17 10:38 PM) RDW [11.5-14.5 %] 192 K/CMM (08/01/17 3:58 AM) 185 K/CMM (07/31/17 7:44 AM) 234 K/CMM (07/30/17 10:38 PM) Platelet [133-450 K/CMM] 7.4 fL (08/01/17 3:58 AM) 7.1 fL *LOW* (07/31/17 7:44 AM) 7.3 fL *LOW* (07/30/17 10:38 PM) MPV [7.4-10.4 fL] 80.2 % *HI* (07/31/17 7:44 AM) 66.8 % (07/30/17 10:38 PM) Segs [45.0-75.0 %] 11.8 % *LOW* (07/31/17 7:44 AM) 24.9 % (07/30/17 10:38 PM) Lymphocytes [20.0-40.0 %] 7.1 % (07/31/17 7:44 AM) 7.2 % (07/30/17 10:38 PM) Monocytes [2.0-12.0 %] 0.5 % (07/31/17 7:44 AM) 0.4 % (07/30/17 10:38 PM) Eosinophils [0.0-4.0 %] 0.4 % (07/31/17 7:44 AM) 0.7 % (07/30/17 10:38 PM) Basophils [0.0-1.0 %] 3.1 K/CMM (07/31/17 7:44 AM) 3.0 K/CMM (07/30/17 10:38 PM) Segs-Bands # [1.5-8.1 K/CMM] 0.5 K/CMM *LOW* (07/31/17 7:44 AM) 1.1 K/CMM (07/30/17 10:38 PM) Lymphocytes # [1.0-5.5 K/CMM] 0.3 K/CMM (07/31/17 7:44 AM) 0.3 K/CMM (07/30/17 10:38 PM) Monocytes # [0.0-0.8 K/CMM] 13.8 seconds (07/30/17 10:38 PM) PT [12.0-14.7 seconds] 1.06 (07/30/17 10:38 PM) INR [0.85-1.17] 28.8 seconds (07/30/17 10:38 PM) PTT [22.9-35.8 seconds] 1Result Comment: Critical Result(s) called to RomeCheng Castañeda at 07/30/2017 22:53 by BE. Read back OK. Immunizations Given and Recorded Vaccine Date Status [...] mind 4Admin Note: [facility] [...] and Plan Extracted from: Title: Discharge Summary * Author: Nick Mott MD Date: 08/01/17 Discharge Information Disposition to home Condition stable Medications: See med reconciliation form Diet: Heart healthy Discharge Plan Follow-up with hematology in our office in 1-2 weeks, PCP in 1 week In evaluating worsening symptom patient was to come back to the ED for further evaluation Discharge summary to greater than 35 minutes Extracted from: Title: Clinical Document Author: Nick Mott MD Date: 07/31/17 Progress Note SUBJECTIVE: Patient was admitted last night due to symptomatic anemia. Patient has chronic anemia and has been worked up extensively as an outpatient by her ironworker machine operator. Patient seen and evaluated at bedside. No overnight events. Denies chest pain, nausea, vomiting, diarrhea, headache, lightheadness, abdomen pain or dizziness. OBJECTIVE: VitalsTmp(F)[id number] 07/31 15:3298.4 100--- 07/31 15:00----[id number]------ 07/31 14:00----[id number]------ 07/31 13:00----[id number]------ 07/31 12:00----[id number]------ 24 Hr Tmax: 98.6F (37.00c) at 07/31 11:38Vital Signs are the last 5 in the past 48 hours. I&ORecordInOutBal 4hr Tot 302 0 302 1224hr Tot 300 0 300 Labs Most Recent Results Previous Results Previous Results Previous Results WBC 3.9 (JUL 31) 4.4 (JUL 30) -- -- Hgb L 7.2 (JUL 31) C 5.6 (JUL 30) -- -- Hct L 21.8 (JUL 31) C 18.1 (JUL 30) -- -- Plt 185 (JUL 31) 234 (JUL 30) -- -- Na 140 (JUL 31) 137 (JUL 30) -- -- K 4.4 (JUL 31) 4.1 (JUL 30) -- -- CO2 27 (JUL 31) 28 (JUL 30) -- -- Cl 105 (JUL 31) 102 (JUL 30) -- -- Cr 0.90 (JUL 31) 1.07 (JUL 30) -- -- BUN 16 (JUL 31) 19 (JUL 30) -- -- Glucose Random H 166 (JUL 31) H 214 (JUL 30) -- -- Ca L 8.0 (JUL 31) L 8.4 (JUL 30) -- -- PT 13.8 (JUL 30) -- -- -- INR 1.06 (JUL 30) -- -- -- PTT 28.8 (JUL 30) -- -- -- Troponin <0.02 (JUL 30) -- -- -- CK MB <0.5 (JUL 30) -- -- -- Total CK 53 (JUL 30) RTF_CENTER, -- RTF_CENTER, -- RTF_CENTER, -- Medications (11) Active Scheduled: (0) Continuous: (0) PRN: (11) acetaminophen 325 mg TABLET 325 mg 1 tab, PO, Q4H Dextrose 50% 50 ml INJ syringe 12.5 gm 25 mL, IVP, PRN Dextrose 50% 50 ml INJ syringe 25 gm 50 mL, IVP, PRN glucagon recombinant 1 mg PDR 1 mg, IM, PRN insulin lispro 100 unit/ml 3 ml Pen [...] 10 unit 0.1 mL, SUB-Q, TID-Before Meals ondansetron 4 mg/2ml INJ VL 4 mg 2 mL, IVP, Q6H tizanidine 4 mg TAB 2 mg 0.5 tab, PO, BID PHYSICAL EXAM: General: NAD, alert and oriented x3 HEENT: normacephalic, atraumatic, PERRLA, EOMI, supple w/ good ROM, normal pharynx Pulm: CTA B/L no w/r/r/c CV: +S1, +S2 no m/r/g, RRR, good cap refill, No JVD, no carotid bruits Abd: ND, NTTP, no rebound or guarding, BS+ Skin: intact, warm and dry, no rashes Musculoskeletal: 5/5 strength, normal range of motion, no swollen joints Neuro: alert and oriented x3, CN 2-12 intact Psychiatry: good judgment and insight Extremities: no edema, cyanosis or clubbing : has kennedy ASSESSMENT AND PLAN: 1. 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 Type 2 diabetes insulin sliding scale, Accu-Cheks 3. Hyperlipidemia continue same home medications 4. History of CAD/two-vessel CABG in the past continue same home medications, cardiac protective meds 5. Prophylaxis- Pepcid 6. FEN: IVFs, regular diet Deposition: Inpatient, hematology consulted If discharge home tomorrow we will change to observation if within 48 hours
--- OUTSIDE RECORDS SUMMARY | 2018-08-13 18:28 | XMS REPORT | Summary of Care ---
Author Author [facility] Organization [facility] Address Unknown Phone Unavailable Encounter TREVON Frias(KIRSTIE) [id number] Date(s): 08/10/17 - 08/14/17 [facility] [address] [place] [address]- U S [phone] Discharge Disposition: Home or Self Care Attending Physician: Taylor Batista MD Admitting Physician: Taylor Batista MD Vital Signs 1 2 3 Most recent to oldest [Reference Range]: 152.4 cm (08/10/17 9:10 PM) 149.86 cm (08/10/17 1:35 PM) Height 97.9 DegF (08/14/17 12:33 PM) 97.5 DegF (08/14/17 8:08 AM) 98.2 DegF (08/14/17 3:51 AM) Temperature Oral [96.4-99.1 DegF] 137/61 mmHg (08/14/17 2:00 PM) 183/96 mmHg *HI* (08/14/17 12:33 PM) 161/73 mmHg *HI* (08/14/17 8:08 AM) Blood Pressure [90-140/60-90 mmHg] 18 BRMIN (08/14/17 2:00 PM) 18 BRMIN (08/14/17 12:33 PM) 18 BRMIN (08/14/17 8:08 AM) Respiratory Rate [14-20 BRMIN] 63 bpm (08/14/17 2:00 PM) 61 bpm (08/14/17 12:33 PM) 66 bpm (08/14/17 8:08 AM) Peripheral Pulse Rate [60-100 bpm] 64.864 kg (08/10/17 9:10 PM) 63.636 kg (08/10/17 1:35 PM) Weight 27.93 m2 (08/10/17 9:10 PM) 28.34 m2 (08/10/17 1:35 PM) Body Mass Index Problem List Condition Effective Dates Status Health Status Informant Alzheimer's Active disease(Confirmed) Angiodysplasia(Confi Active rmed) Anxiety(Confirmed) Active Atrial Active fibrillation(Confirm ed) Benign Active hypertension(Confirm ed) CAD - Coronary Active artery disease(Confirmed) Chronic kidney Active disease (CKD), stage III (moderate)(Confirmed ) COPD(Confirmed) Active Depression(Confirmed Active ) Diabetes(Confirmed) Resolved 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) Fatigue(Confirmed) Active Hearing Active loss(Confirmed) S/P aortic valve Active repair(Confirmed) History of 08/19/99 Active Parkinson's disease(Confirmed) History of Resolved fall(Confirmed) Hyperlipidemia(Confi Active rmed) Hypertension(Confirm Resolved ed) Hypothyroidism(Confi Active rmed) OA - Active Osteoarthritis(Confi rmed) Obesity(Confirmed) Active Obstructive sleep Active apnea(Confirmed) Allergies, Adverse Reactions, Alerts Substance Reaction Severity Status sulfa drugs Active ciprofloxacin Active erythromycin Active cefuroxime Active penicillin Active trimethoprim Active Iodine ALF Active Medications acetaminophen 650 mg, 2 tab, Route: PO, Drug form: TAB, Q4H, Dosing Weight 63.636, kg, PRN Roger n Score 1-3, For fever > 100.4. Not to exceed 4 grams in 24 hours, Start date: 08/10/17 20:40:00 RN LVN, Duration: 30 day, Stop date: 09/09/17 20:39:00 RN LVN Notes: Do not exceed 4 gm/day. (Same as: Tylenol) Start Date: 08/10/17 Stop Date: 08/14/17 Status: Discontinued albuterol 0.083% inhalation solution 2.49 mg, 3 mL, Route: NEB, Drug form: SOLN, PRN, Dosing Weight 63.636, kg, PRN R espiratory Protocol, Start date: 08/10/17 20:40:00 RN LVN, Duration: 30 day, Stop d ate: 09/09/17 20:39:00 RN LVN Notes: SEE RT DOCUMENTATION (Same as: Proventil) Start Date: 08/10/17 Stop Date: 08/14/17 Status: Discontinued albuterol 0.083% inhalation solution 2.49 mg, 3 mL, Route: NEB, Drug form: SOLN, ONCE, Dosing Weight 63.636, kg, Prio rity: STAT, Start date: 08/10/17 15:15:00 RN LVN, Stop date: 08/10/17 15:15:00 RN LVN Notes: SEE RT DOCUMENTATION (Same as: Proventil) Start Date: 08/10/17 Stop Date: 08/10/17 Status: Completed AMIODarone 400 mg oral tablet 400 mg=1 tab, PO, Bedtime, 0 Refill(s) Start Date: 08/10/17 Status: Ordered aspirin 81 mg tablet, enteric coated 81 mg, 1 tab, Route: PO, Drug form: ECTAB, Daily, Dosing Weight 64.864, kg, Star t date: 08/14/17 9:00:00 RN LVN, Duration: 30 day, Stop date: 09/12/17 9:00:00 RN LVN Notes: Do not crush or chew.(Same As: Ecotrin) Start Date: 08/14/17 Stop Date: 08/14/17 Status: Discontinued aspirin 81 mg tablet, enteric coated 81 mg=1 tab, PO, Daily, # 90 tab, 3 Refill(s) Start Date: 08/10/17 Status: Ordered atorvastatin 40 mg oral tablet 40 mg=1 tab, PO, Bedtime, # 30 tab, 0 Refill(s) Start Date: 08/10/17 Status: Ordered cefTRIAXone + sterile water 10 mL 1 gm, Route: IVP, [id number], Dosing Weight 63.636, kg, Priority: Routine, Start da te: 08/11/17 18:00:00 RN LVN, Duration: 5 day, Stop date: 08/15/17 18:00:00 RN LVN, AB X Indication: Pneumonia Notes: (Same As: Rocephin).Use with 100 mL NS and infuse over 30 min MEDICA TION WASTE Product Size: 1000 mgProduct Wasted: ___ mg Start Date: 08/11/17 Stop Date: 08/14/17 Status: Discontinued cefTRIAXone + sterile water 10 mL 1 gm, Route: IVP, [id number], Dosing Weight 63.636, kg, Priority: NOW, Start date: 08/10/17 20:40:00 RN LVN, Duration: 5 day, Stop date: 08/14/17 20:40:00 RN LVN, ABX In dication: Pneumonia Notes: (Same As: Rocephin).Use with 100 mL NS and infuse over 30 min MEDICA TION WASTE Product Size: 1000 mgProduct Wasted: ___ mg Start Date: 08/10/17 Stop Date: 08/10/17 Status: Deleted cefTRIAXone + sterile water 10 mL 1 gm, Route: IVP, [id number], Dosing Weight 63.636, kg, Priority: NOW, Start date: 08/10/17 18:00:00 RN LVN, Duration: 5 day, Stop date: 08/14/17 18:00:00 RN LVN, ABX In dication: Pneumonia Notes: (Same As: Rocephin).Use with 100 mL NS and infuse over 30 min MEDICA TION WASTE Product Size: 1000 mgProduct Wasted: ___ mg Start Date: 08/10/17 Stop Date: 08/10/17 Status: Deleted dextromethorphan-guaiFENesin 10 mg-100 mg/5 mL oral liquid 10 mL, Route: PO, Drug Form: SYRP, Dosing Weight 63.636, kg, Q4H, PRN Cough, Sta rt date: 08/10/17 20:40:00 RN LVN, Duration: 30 day, Stop date: 09/09/17 20:39:[address] Notes: (dextromethorphan-guaifenesin 10-100mg/5ml 10 ml oral SOLN ud) (Same as: Robitussin DM) Start Date: 08/10/17 Stop Date: 08/14/17 Status: Discontinued dextromethorphan-guaiFENesin 20 mg-200 mg/10 mL oral liquid 10 mL, Route: PO, Drug Form: SYRP, Dosing Weight 64.864, kg, Q4H, Start date: 20:00:00 RN LVN, Duration: 3 day, Stop date: 08/16/17 16:00:00 RN LVN Notes: (dextromethorphan-guaifenesin 10-100mg/5ml 10 ml oral SOLN ud) (Same as: Robitussin DM) Start Date: 08/13/17 Stop Date: 08/14/17 Status: Discontinued donepezil 10 mg oral tablet 10 mg=1 tab, PO, Bedtime, 0 Refill(s) Start Date: 08/10/17 Status: Ordered doxycycline + Sodium Chloride 0.9% IV 100 mL 100 mg, Route: IVPB, [id number], Dosing Weight 63.636, kg, Start date: 08/10/17 21: 00:00 RN LVN, Duration: 30 day, Stop date: 09/09/17 9:00:00 RN LVN Notes: (Same as: Vibramycin) Start Date: 08/10/17 Stop Date: 08/14/17 Status: Discontinued Effexor XR 150 mg oral capsule, extended release 150 mg=1 cap, PO, Bedtime, 0 Refill(s) Start Date: 08/10/17 Status: Ordered ferrous sulfate 325 mg oral enteric coated tablet 325 mg=1 tab, PO, Daily, # 30 tab, 0 Refill(s) Start Date: 08/10/17 Status: Ordered hydrALAZINE 5 mg, 0.25 mL, Route: IV, Drug form: INJ, ONCE, Dosing Weight 64.864, kg, Start date: 08/14/17 12:34:00 RN LVN, Stop date: 08/14/17 12:34:00 RN LVN Notes: (Same as: Apresoline)Push over 5 minutes Start Date: 08/14/17 Stop Date: 08/14/17 Status: Completed levothyroxine 150 mcg (0.15 mg) oral tablet 150 microgram=1 tab, PO, Daily, # 30 tab, 0 Refill(s) Start Date: 08/10/17 Status: Ordered lisinopril 20 mg oral tablet 20 mg=1 tab, PO, Daily, # 30 tab, 0 Refill(s) Start Date: 08/10/17 Status: Ordered methylPREDNISolone 125 mg, 2 mL, Route: IV, Drug form: INJ, ONCE, Start date: 08/10/17 17:42:00 RN LVN , Stop date: 08/10/17 17:42:00 RN LVN Notes: (Same as:Solu-MEDROL, A-Methapred) Start Date: 08/10/17 Stop Date: 08/10/17 Status: Completed methylPREDNISolone SODium SUCCinate 125 mg, Route: IVP, ONCE, Dosing Weight 63.636, kg, Priority: STAT, Start date: 08/10/17 16:43:00 RN LVN, Stop date: 08/10/17 16:43:00 RN LVN Start Date: 08/10/17 Stop Date: 08/10/17 Status: Deleted metoprolol extended release 25 mg, 1 tab, Route: PO, Drug form: ERTAB, Daily, Start date: 08/14/17 4:12:[address], Duration: 30 day, Stop date: 09/12/17 9:00:00 RN LVN Notes: (Same as: Toprol XL) Do Not Crush Start Date: 08/14/17 Stop Date: 08/14/17 Status: Discontinued MiraLax 17 gm, 1 pkt, Route: PO, Drug form: PWDR, Daily, Dosing Weight 64.864, kg, Start date: 08/12/17 10:39:00 RN LVN, Duration: 30 day, Stop date: 09/11/17 9:00:00 RN LVN Notes: Dissolve in 8 oz of water or juice.(Same as: Miralax) Start Date: 08/12/17 Stop Date: 08/14/17 Status: Discontinued Plavix 75 mg oral tablet 75 mg=1 tab, PO, Daily, # 30 tab, 0 Refill(s) Start Date: 08/10/17 Stop Date: 08/14/17 Status: Discontinued Protonix 40 mg oral enteric coated tablet 40 mg=1 tab, PO, Daily, # 30 tab, 0 Refill(s) Start Date: 08/10/17 Status: Ordered Reglan 5 mg oral tablet 5 mg, 1 tab, Route: PO, Drug form: TAB, TID-Before Meals, Dosing Weight 64.864, kg, Start date: 08/12/17 11:30:00 RN LVN, Duration: 30 day, Stop date: 09/11/17 7:3 0:00 RN LVN Notes: (Same as: Reglan) Take 30 min before meals Start Date: 08/12/17 Stop Date: 08/14/17 Status: Discontinued Rocephin + sterile water 10 mL 1 gm, Route: IVPB, ONCE, Dosing Weight 63.636, kg, Priority: STAT, Start date: 1 10/11/16 16:33:00 RN LVN, Stop date: 08/10/17 16:33:00 RN LVN, ABX Indication: Pneumoni a Notes: (Same As: Rocephin).Use with 100 mL NS and infuse over 30 min MEDICA TION WASTE Product Size: 1000 mgProduct Wasted: ___ mg Start Date: 08/10/17 Stop Date: 08/10/17 Status: Deleted Rocephin + sterile water 10 mL 1 gm, Route: IVP, ONCE, Dosing Weight 63.636, kg, Priority: Routine, Start date: 08/10/17 18:00:00 RN LVN, Stop date: 08/10/17 18:00:00 RN LVN, ABX Indication: Pneumo sruthi Notes: (Same As: Rocephin).Use with 100 mL NS and infuse over 30 min MEDICA TION WASTE Product Size: 1000 mgProduct Wasted: ___ mg Start Date: 08/10/17 Stop Date: 08/10/17 Status: Completed Saline Flush 0.9% 10 ml, Route: IVP, Drug Form: INJ, Dosing Weight 63.636, kg, PRN, PRN Line Flush , Start date: 08/10/17 20:40:00 RN LVN, Duration: 30 day, Stop date: 09/09/17 20:39 :00 RN LVN Notes: (Same as: BD Posiflush) Start Date: 08/10/17 Stop Date: 08/14/17 Status: Discontinued Saline Flush 0.9% 10 mL, Route: IVP, Drug Form: INJ, Dosing Weight 72.926, kg, PRN, PRN Line Flush , Start date: 08/10/17 13:37:00 RN LVN, Duration: 30 day, Stop date: 09/09/17 13:36 :00 RN LVN Notes: (Same as: BD Posiflush) Start Date: 08/10/17 Stop Date: 08/14/17 Status: Discontinued Sodium Chloride 0.9% (titrate) 250 mL 250 mL, Rate: To prime line and flush remaining blood products., Dosing Weight 6 3.636, kg, Route: IV, Total Volume: 250, Start Date: 08/10/17 14:32:00 RN LVN, Dura tion: 30 day, Stop date: 09/09/17 14:31:00 RN LVN, Replace Every: 24 hr Start Date: 08/10/17 Stop Date: 08/10/17 Status: Discontinued Sodium Chloride 0.9% IV 1,000 mL 1,000 mL, Rate: 25 ml/hr, Infuse over: 40 hr, Route: IV, Dosing Weight 64.864 kg , Total Volume: 1,000, Start date: 08/12/17 10:12:00 RN LVN, Duration: 30 day, Stop date: 09/11/17 10:11:00 RN LVN, 1.68, m2 Start Date: 08/12/17 Stop Date: 08/13/17 Status: Discontinued Sodium Chloride 0.9% IV 1,000 mL 1,000 mL, Rate: 50 ml/hr, Infuse over: 20 hr, Route: IV, Dosing Weight 63.636 kg , Total Volume: 1,000, Start date: 08/10/17 20:40:00 RN LVN, Duration: 30 day, Stop date: 09/09/17 20:39:00 RN LVN, 1.65, m2 Start Date: 08/10/17 Stop Date: 08/13/17 Status: Discontinued tizanidine 2 mg oral tablet 4 mg=2 tab, PO, BID, PRN Spasm, 0 Refill(s) Start Date: 08/10/17 Status: Ordered Xanax 0.25 mg oral tablet 0.25 mg, 1 tab, Route: PO, Drug form: TAB, TID, Dosing Weight 64.864, kg, PRN An xiety, Start date: 08/11/17 12:09:00 RN LVN, Duration: 30 day, Stop date: 09/10/17 12:08:00 RN LVN Notes: With food or milk(Same as: Xanax) Start Date: 08/11/17 Stop Date: 08/14/17 Status: Discontinued Zofran 4 mg, 2 mL, Route: IVP, Drug form: INJ, Q4H, Dosing Weight 64.864, kg, PRN Nause a, Start date: 08/11/17 12:09:00 RN LVN, Duration: 30 day, Stop date: 09/10/17 12:0 8:00 RN LVN Notes: (Same as: Zofran) MEDICATION WASTE Product Size: 4 mgProduct Was jeffrey: ___ mg Start Date: 08/11/17 Stop Date: 08/14/17 Status: Discontinued Results BLOOD BANK RESULTS Most recent to 1 2 oldest [Reference Range]: ABO/Rh A POS *Unknown* (08/10/17 2:35 PM) Antibody Scrn Negative (08/10/17 2:35 PM) ELECTROLYTES Most recent to 1 2 oldest [Reference Range]: Sodium Lvl [135-145 141 mEq/L 135 mEq/L mEq/L] (08/12/17 3:16 AM) (08/10/17 2:34 PM) Potassium Lvl 4.2 mEq/L 3.7 mEq/L [3.5-5.1 mEq/L] (08/12/17 3:16 AM) (08/10/17 2:34 PM) Chloride Lvl [95-109 107 mEq/L 100 mEq/L mEq/L] (08/12/17 3:16 AM) (08/10/17 2:34 PM) CO2 [24-32 mEq/L] 30 mEq/L 30 mEq/L (08/12/17 3:16 AM) (08/10/17 2:34 PM) AGAP [10.0-20.0 8.2 mEq/L 8.7 mEq/L mEq/L] *LOW* *LOW* (08/12/17 3:16 AM) (08/10/17 2:34 PM) CHEM PANEL Most recent to 1 2 oldest [Reference Range]: Creatinine Lvl 0.86 mg/dL 1.10 mg/dL [0.50-1.40 mg/dL] (08/12/17 3:16 AM) (08/10/17 2:34 PM) eGFR 63 mL/min/1.73m2 1 47 mL/min/1.73m2 2 *NA* *NA* (08/12/17 3:16 AM) (08/10/17 2:34 PM) BUN [7-22 mg/dL] 24 mg/dL 27 mg/dL *HI* *HI* (08/12/17 3:16 AM) (08/10/17 2:34 PM) B/C Ratio [6-25] 28 25 *HI* (08/10/17 2:34 PM) (08/12/17 3:16 AM) Glucose Lvl [70-99 186 mg/dL 165 mg/dL mg/dL] *HI* *HI* (08/12/17 3:16 AM) (08/10/17 2:34 PM) Total Protein 5.9 g/dL 7.0 g/dL [6.4-8.4 g/dL] *LOW* (08/10/17 2:34 PM) (08/12/17 3:16 AM) Albumin Lvl [3.5-5.0 2.8 g/dL 3.5 g/dL g/dL] *LOW* (08/10/17 2:34 PM) (08/12/17 3:16 AM) Globulin [2.7-4.2 3.1 g/dL 3.5 g/dL g/dL] (08/12/17 3:16 AM) (08/10/17 2:34 PM) A/G Ratio [0.7-1.6] 0.9 1.0 (08/12/17 3:16 AM) (08/10/17 2:34 PM) Calcium Lvl 8.8 mg/dL 8.9 mg/dL [8.5-10.5 mg/dL] (08/12/17 3:16 AM) (08/10/17 2:34 PM) ALT [0-65 unit/L] 32 unit/L 52 unit/L (08/12/17 3:16 AM) (08/10/17 2:34 PM) AST [0-37 unit/L] 24 unit/L 36 unit/L (08/12/17 3:16 AM) (08/10/17 2:34 PM) Alk Phos [39-136 62 unit/L 78 unit/L unit/L] (08/12/17 3:16 AM) (08/10/17 2:34 PM) Bili Total [0.2-1.3 0.3 mg/dL 0.4 mg/dL mg/dL] (08/12/17 3:16 AM) (08/10/17 2:34 PM) Lipase Lvl [73-393 192 unit/L unit/L] (08/10/17 2:35 PM) Lactic Acid Lvl 0.5 mMol/L 0.7 mMol/L [0.5-2.2 mMol/L] (08/10/17 9:57 PM) (08/10/17 2:34 PM) 1Result Comment: The eGFR is calculated [...] BMI. CARDIAC ENZYMES Most recent to 1 2 oldest [Reference Range]: Total CK [12-191 45 unit/L unit/L] (08/10/17 2:34 PM) CK MB [0.5-3.6 <0.5 ng/mL ng/mL] (08/10/17 2:34 PM) CK MB Index <1.1 [0.0-2.5] (08/10/17 2:34 PM) Troponin-I <0.02 ng/mL [0.00-0.40 ng/mL] (08/10/17 2:34 PM) proBNP [0-450 pg/mL] 427 pg/mL (08/10/17 2:34 PM) URINE AND STOOL Most recent to 1 2 oldest [Reference Range]: Occult Bld Stl Positive [Negative] *ABN* (08/10/17 2:35 PM) HEMATOLOGY Most recent to 1 2 oldest [Reference Range]: WBC [3.7-10.4 K/CMM] 5.1 K/CMM 5.1 K/CMM (08/12/17 3:16 AM) (08/10/17 2:34 PM) RBC [4.20-5.40 3.51 M/CMM 3.93 M/CMM M/CMM] *LOW* *LOW* (08/12/17 3:16 AM) (08/10/17 2:34 PM) Hgb [12.0-16.0 g/dL] 9.7 g/dL 10.7 g/dL *LOW* *LOW* (08/12/17 3:16 AM) (08/10/17 2:34 PM) Hct [36.0-48.0 %] 29.6 % 32.8 % *LOW* *LOW* (08/12/17 3:16 AM) (08/10/17 2:34 PM) MCV [80.0-98.0 fL] 84.1 fL 83.3 fL (08/12/17 3:16 AM) (08/10/17 2:34 PM) MCH [27.0-31.0 pg] 27.6 pg 27.2 pg (08/12/17 3:16 AM) (08/10/17 2:34 PM) MCHC [32.0-36.0 32.8 g/dL 32.6 g/dL g/dL] (08/12/17 3:16 AM) (08/10/17 2:34 PM) RDW [11.5-14.5 %] 19.4 % 18.7 % *HI* *HI* (08/12/17 3:16 AM) (08/10/17 2:34 PM) Platelet [133-450 336 K/CMM 328 K/CMM K/CMM] (08/12/17 3:16 AM) (08/10/17 2:34 PM) MPV [7.4-10.4 fL] 6.9 fL 7.0 fL *LOW* *LOW* (08/12/17 3:16 AM) (08/10/17 2:34 PM) Segs [45.0-75.0 %] 74.3 % 74.8 % (08/12/17 3:16 AM) (08/10/17 2:34 PM) Lymphocytes 17.8 % 17.6 % [20.0-40.0 %] *LOW* *LOW* (08/12/17 3:16 AM) (08/10/17 2:34 PM) Monocytes [2.0-12.0 7.6 % 6.7 % %] (08/12/17 3:16 AM) (08/10/17 2:34 PM) Eosinophils [0.0-4.0 0.2 % 0.5 % %] (08/12/17 3:16 AM) (08/10/17 2:34 PM) Basophils [0.0-1.0 0.1 % 0.4 % %] (08/12/17 3:16 AM) (08/10/17 2:34 PM) Segs-Bands # 3.8 K/CMM 3.8 K/CMM [1.5-8.1 K/CMM] (08/12/17 3:16 AM) (08/10/17 2:34 PM) Lymphocytes # 0.9 K/CMM 0.9 K/CMM [1.0-5.5 K/CMM] *LOW* *LOW* (08/12/17 3:16 AM) (08/10/17 2:34 PM) Monocytes # [0.0-0.8 0.4 K/CMM 0.3 K/CMM K/CMM] (08/12/17 3:16 AM) (08/10/17 2:34 PM) PT [12.0-14.7 12.9 seconds seconds] (08/10/17 2:34 PM) INR [0.85-1.17] 0.97 (08/10/17 2:34 PM) PTT [22.9-35.8 19.3 seconds seconds] *LOW* (08/10/17 2:34 PM) Immunizations Given and Recorded Vaccine Date Status [...] mind 4Admin Note: pt got it at [facility]=apr 2012 Procedures Procedure Date Related [...] ago Assessment and Plan Extracted from: Title: UIP Hospitalist Discharge Author: Taylor Batista MD Date: 08/14/[address] [facility] Providers Hospitalist Discharge Summary Code Status: Full Code [Ordered] Admission Date: 08/10/2017 Discharge Date: 08/14/2017 Discharge Diagnosis: 1. Upper GI bleed Consulting Physicians: Consulting Physicians: Maggie Kidd MDOffice: Service: Medicine, Cardiology Ronnie Chapman MDOffice: Service: Gastroenterology Robbi Palacios MDOffice: Service: Gastroenterology, Medicine Gilbert Ramos MDOffice: Service: Medicine Discharge Condition: fair Hospital Course: This is an 82 year old F with a hx of DM, HTN, CHF who also was recently found to be chronically anemic. Presented withw eakness and dark stools. Now s/p EGD, found to have erosive gastritis and AVM. No intervention, Cardiology recommneded no plavix on discharge. Will go home with home health. Patient initially on abx for suspected pneumonia, however on 08/13 CXR negative for infiltrates. Clear for discharge. Needs PCP follow up. Physical Exam: General: Awake, alert, oriented x 3, NAD HEENT: PERRLA, EOMI. MMM and intact without erythema. No conjunctival injection. No scleral icterus. Heart: RRR, normal S1, S2. No murmurs, rubs, gallops Lungs: Clear to auscultation bilaterally. Symmetric chest wall expansion. Abdomen: Soft, non-tender to palpation, non-distended. Bowel sound present in all 4 quadrants. Discharge Instructions: Notify physician if signs of infection Discharge Activity: as tolerated Discharge Diet: continue home diet Discharge Medications: refer to EMR for full list of medications Discharge Follow up: 2 weeks with PCP Time spent on discharge planning: < 30 minutes Taylor Batista MD [facility] Extracted from: Title: Clinical Document Author: Ronnie Chapman MD Date: 08/14/17 Progress Note Gastroenterology and Hepatology ASSESSMENT /PLAN: 82-year-old female with a past medical history of coronary artery disease, status post CABG, severe aortic stenosis, status post TAVR in 05/2017, recurrent acute iron deficiency anemia on aspirin and Plavix at home, Parkinson disease, diabetes, hypertension, hyperlipidemia, GERD, severe diverticulosis, among other medical problems who was admitted with nausea, poor appetite and persistent anemia with questionable melena. There is no history of significant overt GI bleeding as patient's hemoglobin is stable compared to her recent hemoglobin on discharge. Push enteroscopy 08/12/17 with Small hiatal hernia. Mild gastritis, biopsied. 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 Recommend Treatment of URI per primary. Follow up results of biopsies. Significant nausea is likely secondary to gastroparesis, which is exacerbated by underlying constipation. Her recent CT scan is negative. Start scheduled Reglan. Check gastric emptying study as outpt. Start bowel regimen. Follow antireflux precautions including raising the head end of bed, small frequent low fat meals, no meals within 2 hours of bedtime and avoiding caffiene, peppermint and alcohol in evening. Prilosec 40 mg po once daily indefinitely. Avoid NSAIDs such as Motrin, Aleve, Advil, Ibuprofen manager intermediate if possible. Repeat push enteroscopy to treat AVM as well as colonoscopy as outpt. Will need to be off Plavix 5 days before procedure (stopped). F/up with Dr. Chapman in clinic in 2 weeks. SUBJECTIVE: Pt denies new GI complaints. Breathing getting better. Review of Systems: (-)=Negative,(+)=Positive 1) Const: (-) fever, (-) weight change 2) Skin: (-) rash, (-) bleeding 3) HEENT: (-) difficulty swallowing, (-) swelling 4) Eyes: (-) vision changes, (-) bleeding 5) Neuro: (-) weakness, (-) headaches 6) Resp: (-) dyspnea on exertion, (-) cough 7) Cardio: (-) chest pain, (-) orthopnea 8) GI: (-) blood in stool, (-) reflux 9) : (-) dysuria, (-) bloody discharge 10) Endo: (-) heat intolerance, (-) cold intolerance OBJECTIVE: Vitals: See below General: Alert , Oriented x 3 CVS: s1s2 RRR Resp: CTA Bilaterally Abd : Soft, NT, ND , BS + Ext : no edema MARRIAGE AND FAMILY COUNSELOR: No gross motor/sensory defects VitalsTmp(F)[id number] 08/14 14:00----[id number]------ 08/14 12:[id number]--- 08/14 08:[id number]--- 08/14 07:13 1895 21% 08/14 03:[id number]--- 24 Hr Tmax: 98.3F (36.83c) at 08/13 23:32Vital Signs are the last 5 in the past 48 hours. Lines, Tubes, and Drains: 08/14/2017 00:00 Peripheral Lines: Hand Right 20 gauge Over the needle catheter TAVR - Transcatheter aortic valve replacement: 05/23/17 Bypass: 01/14/10 Caesarean section: 08/19/60 Abdominal hysterectomy: 08/19/57 Cholecystectomy Back fusion Hysterectomy 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 Appendectomy Bladder implantation Replacement of aortic valve I&ORecordInOutBal 07/2724hr Tot 110 0 110 07/2624hr Tot 1200 0 1200 No qualifying data available Labs Most Recent Results Previous Results Previous Results Previous Results WBC 5.1 (AUG 12) 5.1 (AUG 10) -- -- Hgb L 9.7 (AUG 12) L 10.7 (AUG 10) -- -- Hct L 29.6 (AUG 12) L 32.8 (AUG 10) -- -- Plt 336 (AUG 12) 328 (AUG 10) -- -- Na 141 (AUG 12) 135 (AUG 10) -- -- K 4.2 (AUG 12) 3.7 (AUG 10) -- -- CO2 30 (AUG 12) 30 (AUG 10) -- -- Cl 107 (AUG 12) 100 (AUG 10) -- -- Cr 0.86 (AUG 12) 1.10 (AUG 10) -- -- BUN H 24 (AUG 12) H 27 (AUG 10) -- -- Glucose Random H 186 (AUG 12) H 165 (AUG 10) -- -- Ca 8.8 (AUG 12) 8.9 (AUG 10) -- -- PT 12.9 (AUG 10) -- -- -- INR 0.97 (AUG 10) -- -- -- PTT L 19.3 (AUG 10) -- -- -- Troponin <0.02 (AUG 10) -- -- -- CK MB <0.5 (AUG 10) -- -- -- Total CK 45 (AUG 10) RTF_CENTER, -- RTF_CENTER, -- RTF_CENTER, -- Extracted from: Title: Clinical Document Author: Ishan Diaz MD Date: 08/12/17 Ishan Diaz M.D. [facility] Original consult for Dr Kidd Reason for consult: Kyra-op cardiac eval HPI: Mrs Sorensen is 82 year old female admitted to [facility] for SOB and cough with purulent expectoration. NO Chest pain. NO PND.No palpitations.NO LOC No nausea/vomiting/diarrhea or abdominal pain Hodan + NO localizing weakness of any extremities or difficulty in speech NO headache/ear discharge/rash NO dysuria or blurring of vision PMH: -TAVR in 05/23/2017 with Self Expanding valve -CAD: EDWARDS to LAD and SVG to OM; both patent -Anemia of GI bleed requiring PRBC -Parkinson disease -Prox Afib -HTN -DM -Chronic diastolic HF PSH: -CABG -Caesarean section -Abdominal hysterectomy -Cholecystectomy -Hysterectomy -TKR -Back fusion -Appendectomy Habits:Negative x 3 Allegry: Iodine/PCN/Bacrtrim and multiple others listed in care4 FH: non contributory for premature CAD or SCD VitalsTmp(F)Tmp(C)[id number] 08/12 08:[id number]------ 08/12 08:24 1897 3.0L/m--- 08/12 04:[id number]------ 08/11 23:[id number]------ 08/11 19:[id number]------ General: No acute distress; Eyes:EOMI Neck: No JVD; no swelling Heart: S1, S2 normal; soft systolic aortic murmur, No rub, No gallop Chest: B/L Air Entry +; No wheeze; No crepititions PA: BS+; NT; ND NS: AAOx3; No signs of lateralization Extremities,Lower : edema +; Labs & Diagnostic Work up: Labs Most Recent Results Previous Results Previous Results Previous Results WBC 5.1 (AUG 12) 5.1 (AUG 10) -- -- Hgb L 9.7 (AUG 12) L 10.7 (AUG 10) -- -- Hct L 29.6 (AUG 12) L 32.8 (AUG 10) -- -- Plt 336 (AUG 12) 328 (AUG 10) -- -- Na 141 (AUG 12) 135 (AUG 10) -- -- K 4.2 (AUG 12) 3.7 (AUG 10) -- -- CO2 30 (AUG 12) 30 (AUG 10) -- -- Cl 107 (AUG 12) 100 (AUG 10) -- -- Cr 0.86 (AUG 12) 1.10 (AUG 10) -- -- BUN H 24 (AUG 12) H 27 (AUG 10) -- -- Glucose Random H 186 (AUG 12) H 165 (AUG 10) -- -- Ca 8.8 (AUG 12) 8.9 (AUG 10) -- -- PT 12.9 (AUG 10) -- -- -- INR 0.97 (AUG 10) -- -- -- PTT L 19.3 (AUG 10) -- -- -- Troponin <0.02 (AUG 10) -- -- -- CK MB <0.5 (AUG 10) -- -- -- Total CK 45 (AUG 10) RTF_CENTER, -- RTF_CENTER, -- RTF_CENTER, -- Medications Medications (10) Active Scheduled: (2) cefTRIAXone 1 gm INJ VL + water for INJection, sterile 10 mL 1 gm, IVP, [id number] doxycycline INJ + sodium chloride 0.9% INJ 100 mL 100 mg, IVPB, [id number] Continuous: (1) sodium chloride 0.9% 1000 ml INJ 1,000 mL 1,000 mL, IV, 50 ml/hr PRN: (7) acetaminophen 325 mg TABLET 650 mg 2 tab, PO, Q4H albuterol 0.083% 3 ml neb SOLN 2.49 mg 3 mL, NEB, PRN ALPRAZolam 0.25 mg TAB 0.25 mg 1 tab, PO, TID guaiFENesin-dextromethorphan 10ml syrp 10 mL, PO, Q4H ondansetron 4 mg/2ml INJ VL 4 mg 2 mL, IVP, Q4H sodium chloride 0.9% 10 ml flush syr BD 10 mL, IVP, PRN sodium chloride 0.9% 10 ml flush syr BD 10 ml, IVP, PRN TTE:05/2017 1) Normal LV size with mild concentric [...] RVSP is slightly lower on current study. 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 Ishan Diaz MD on 08/12/2017 10:23
--- OUTSIDE RECORDS SUMMARY | 2018-08-13 18:28 | XMS REPORT | Summary of Care ---
Author Author [facility] Primary Care [facility] Organization [facility] Address Unknown Phone Unavailable Encounter TREVON Frias(FIN) [id number] Date(s): 08/21/17 - 08/21/17 [facility] [address], [address] [place] [address] [phone] Attending Physician: Miya Cast DO Referring Physician: Rowena Kay MD Vital Signs No data available for this section Problem List Condition Effective Dates Status Health Status Informant Alzheimer's Active disease(Confirmed) Anemia due to blood Active loss(Confirmed) Anxiety(Confirmed) Active Atrial Resolved fibrillation(Confirm ed) Benign Active hypertension(Confirm ed) CAD - Coronary Active artery disease(Confirmed) Chronic kidney Active disease (CKD), stage III (moderate)(Confirmed ) AVM (arteriovenous Active malformation)(Confir med) COPD(Confirmed) Active Depression(Confirmed Active ) Diabetes mellitus Active with kidney disease(Confirmed) Gastroparesis(Confir Active med) Hearing Active loss(Confirmed) Cold sore(Confirmed) Active S/P aortic valve Active repair(Confirmed) History of 08/19/99 Resolved Parkinson's disease(Confirmed) History of Resolved fall(Confirmed) Hyperlipidemia(Confi Active rmed) Hypothyroidism(Confi Active rmed) OA - Active Osteoarthritis(Confi rmed) Obesity(Confirmed) Active Obstructive sleep Active apnea(Confirmed) Unsteady Active gait(Confirmed) Weight Active loss(Confirmed) Allergies, Adverse Reactions, Alerts Substance Reaction Severity Status sulfa drugs Active ciprofloxacin Active erythromycin Active cefuroxime Active penicillin Active trimethoprim Active Iodine SKILLED NURSING Active Medications No data available for this [...] mind 4Admin Note: pt got it at [facility]=apr 2012 Procedures Procedure Date Related Diagnosis Body [...]
--- OUTSIDE RECORDS SUMMARY | 2018-08-13 18:28 | XMS REPORT | Summary of Care ---
Author Author [facility] Care [facility] Organization [facility] Address Unknown Phone Unavailable Encounter TREVON Frias(FIN) [id number] Date(s): 07/30/17 - 07/30/17 [facility] [address] [place] [address], [address] [place] [address]- [phone] Attending Physician: Miya Cast DO Referring Physician: [...] cefuroxime Active penicillin Active trimethoprim Active Iodine LONG TERM Active Medications No data available for this [...] mind 4Admin Note: pt got it at [facility]=apr 2012 Procedures Procedure Date Related Diagnosis [...]
--- OUTSIDE RECORDS SUMMARY | 2018-08-13 18:28 | XMS REPORT | Summary of Care ---
Author Author [facility] Primary Care [facility] Organization [facility] Address Unknown Phone Unavailable Encounter HQ Edie_misha(FIN) [id number] Date(s): 08/08/17 - 08/09/17 [facility] [address], [address] [place] [address]- [phone] Vital Signs No data available for this [...] cefuroxime Active penicillin Active trimethoprim Active Iodine ASSISTED Active Medications No data available for this [...] 4Admin Note: pt got it at [facility]=apr 2012 Procedures Procedure Date Related Diagnosis [...]
--- OUTSIDE RECORDS SUMMARY | 2018-08-13 18:28 | XMS REPORT | Summary of Care ---
Author Author [facility] Primary Care [facility] Organization [facility] Address Unknown Phone Unavailable Encounter TREVON Frias(FIN) [id number] Date(s): 08/23/17 - 08/24/17 [facility] Primary [facility] [address] [place] [address], [address] [place] [address]- [phone] Vital Signs No data available for this [...] cefuroxime Active penicillin Active trimethoprim Active Iodine SHELTER Active Medications Lantus Solostar Pen 100 units/mL subcutaneous solution 20 unit, SUB-Q, Before Breakfast, # 1 box, 5 Refill(s), Pharmacy: [facility] Start Date: 08/23/17 Status: Ordered NovoLOG FlexPen 100 units/mL subcutaneous solution 7 unit, SUB-Q, Before Breakfast, # 1 box, 5 Refill(s), Pharmacy: [facility] Start Date: 08/23/17 Status: Ordered Results No data available for [...] mind 4Admin Note: pt got it at [facility]=apr 2012 Procedures Procedure Date Related Diagnosis [...]
--- OUTSIDE RECORDS SUMMARY | 2018-08-13 18:28 | XMS REPORT | Summary of Care ---
Author Author [facility] Organization [facility] Address Unknown Phone Unavailable Encounter TREVON Frias(KIRSTIE) [id number] Date(s): 08/22/17 - 08/22/17 [facility] [address], [address] [place] [address]- [phone] Discharge Disposition: Home or Self Care Attending Physician: Miya Cast DO Referring Physician: Rowena Kay MD Vital Signs Most recent to 1 oldest [Reference Range]: Height 149.86 cm (08/22/17 11:16 AM) Temperature Oral 98.3 DegF [96.4-99.1 DegF] (08/22/17 11:16 AM) Blood Pressure 139/57 mmHg [90-140/60-90 mmHg] (08/22/17 11:16 AM) Respiratory Rate 14 BRMIN [14-20 BRMIN] (08/22/17 11:16 AM) Peripheral Pulse 89 bpm Rate [60-100 bpm] (08/22/17 11:16 AM) Weight 62.727 kg (08/22/17 11:16 AM) Body Mass Index 27.93 m2 (08/22/17 11:16 AM) Problem List Condition Effective Dates Status [...] cefuroxime Active penicillin Active trimethoprim Active Iodine FCI Active Medications valACYclovir 1 g oral tablet 2 gm=2 tab, PO, Q12H, 2 g every 12 hours for 1 day, X 1 day, # 4 tab, 0 Refill(s ), Pharmacy: [id number] Start Date: 08/22/17 Stop Date: 08/23/17 Status: Completed Results No data available for this section [...]
--- OUTSIDE RECORDS SUMMARY | 2018-08-13 18:28 | XMS REPORT | Summary of Care ---
Author Author [facility] Organization [facility] Address Unknown Phone Unavailable Encounter TREVON Frias(KIRSTIE) [id number] Date(s): 07/30/17 - 07/30/17 [facility] [address], [address] [place] [address]- [phone] Discharge Disposition: Home or Self Care Attending Physician: Miya Cast DO Referring Physician: Rowena Kay MD Vital Signs Most recent to 1 oldest [Reference Range]: Height 149.86 cm (07/30/17 9:15 AM) Temperature Oral 98.0 DegF [96.4-99.1 DegF] (07/30/17 9:15 AM) Blood Pressure 133/62 mmHg [90-140/60-90 mmHg] (07/30/17 9:15 AM) Respiratory Rate 16 BRMIN [14-20 BRMIN] (07/30/17 9:15 AM) Peripheral Pulse 63 bpm Rate [60-100 bpm] (07/30/17 9:15 AM) Weight 68.636 kg (07/30/17 9:15 AM) Body Mass Index 30.56 m2 (07/30/17 9:15 AM) Problem List Condition Effective Dates Status [...] Active trimethoprim Active Iodine CUSTODIAL Active Medications hydrochlorothiazide-lisinopril 12.5 mg-20 mg oral tablet 1 tab, PO, Daily, # 30 tab, 0 Refill(s) Start Date: 07/30/17 Status: Ordered isosorbide mononitrate PO, 0 Refill(s) Start Date: 07/30/17 Status: Ordered metoprolol tartrate 25 mg oral tablet 25 mg=1 tab, PO, BID, # 180 tab, 0 Refill(s) Start Date: 07/30/17 Status: Ordered OneTouch Verio Gold Test Strips 1 ea, MISC, TID-Before Meals, Use for blood glucose monitoring., # 300 strip, In sulin dependent, Does not use insulin pump, Last DM eval date 06/16/17, 3 Refill (s) Start Date: 07/30/17 Stop Date: 07/29/21 Status: Ordered tizanidine 2 mg oral tablet 2 mg=1 tab, PO, BID, PRN for muscle spasm, # 60 tab, 2 Refill(s), Pharmacy: [id number] Start Date: 07/30/17 Stop Date: 10/28/17 Status: Ordered Results No data available for [...]
--- OUTSIDE RECORDS SUMMARY | 2018-08-13 18:29 | XMS REPORT | Summary of Care ---
Author Author [facility] Care [facility] Organization [facility] Address Unknown Phone Unavailable Encounter TREVON Frias(FIN) [id number] Date(s): 01/10/18 - 01/11/18 [facility] [address] [place] [address], [address] [place] [address]- [phone] Vital Signs No data available for this [...] cefuroxime Active penicillin2 Active trimethoprim Active Iodine HALF-WAY Active 1rash all over body 2rash all [...] 4Admin Note: pt got it at [facility]=apr 2012 Procedures Procedure Date Related Diagnosis Body [...]
--- OUTSIDE RECORDS SUMMARY | 2018-08-13 18:29 | XMS REPORT | Summary of Care ---
Author Author [facility] Primary Care [facility] Organization [facility] Address Unknown Phone Unavailable Encounter TREVON Frias(FIN) [id number] Date(s): 01/27/18 - 01/28/18 [facility] [address], [address] [place] [address]- [phone] Vital Signs No data available for this section Problem List Condition Effective Dates Status Health Status Informant Allergic Active rhinitis(Confirmed) Alzheimer's Active disease(Confirmed) Anemia due to blood Active loss(Confirmed) Anxiety(Confirmed) Active Atrial Resolved fibrillation(Confirm ed) Benign Active hypertension(Confirm ed) Bilateral hearing Active loss(Confirmed) CAD - Coronary Active artery disease(Confirmed) Chronic kidney Active disease (CKD), stage III (moderate)(Confirmed ) Chronic Active pain(Confirmed) AVM (arteriovenous Active malformation)(Confir med) COPD(Confirmed) Active Depression(Confirmed Active ) Diabetes mellitus Active with kidney disease(Confirmed) Pedal Active edema(Confirmed) Gastroparesis(Confir Active med) Gingivitis(Confirmed Active ) S/P aortic valve Active repair(Confirmed) History of 08/19/99 Active Parkinson's disease(Confirmed) Hyperlipidemia(Confi Active rmed) Hypothyroidism(Confi Active rmed) Urinary Active frequency(Confirmed) OA - Active Osteoarthritis(Confi rmed) Obesity(Confirmed) Active Obstructive sleep Active apnea(Confirmed) Physical Active deconditioning(Confi rmed) Recurrent Active falls(Confirmed) Poor Active dentition(Confirmed) Unsteady Active gait(Confirmed) Weight Active loss(Confirmed) Allergies, Adverse Reactions, Alerts Substance Reaction Severity Status sulfa drugs Active ciprofloxacin Active erythromycin1 Active cefuroxime Active penicillin2 Active trimethoprim Active Iodine ALF Active 1rash all over body 2rash all [...] mind 4Admin Note: pt got it at [facility]=apr 2012 Procedures Procedure Date Related Diagnosis [...] Reg Smoking Cessation Counseling No2 entered on: 01/28/18 1up to the bathroom. 2pt quit 33 yrs ago Assessment and Plan No data available for this section
--- OUTSIDE RECORDS SUMMARY | 2018-08-13 18:29 | XMS REPORT | Summary of Care ---
Author Author [facility] Primary Care [facility] Organization [facility] Address Unknown Phone Unavailable Encounter TREVON Frias(FIN) [id number] Date(s): 01/15/18 - 01/16/18 [facility] Primary [facility] [address], [address] [place] [address]- [phone] Vital Signs No data available for this section Problem List Condition Effective Dates Status Health Status Informant Allergic Active rhinitis(Confirmed) Alzheimer's Active disease(Confirmed) Anemia due to blood Active loss(Confirmed) Left ankle Active pain(Confirmed) Anxiety(Confirmed) Active Atrial Resolved fibrillation(Confirm ed) Back pain(Confirmed) Active Benign Active hypertension(Confirm ed) Bilateral hearing Active loss(Confirmed) CAD - Coronary Active artery disease(Confirmed) Chronic kidney Active disease (CKD), stage III (moderate)(Confirmed ) AVM (arteriovenous Active malformation)(Confir med) COPD(Confirmed) Active Depression(Confirmed Active ) Diabetes mellitus Active with kidney disease(Confirmed) Gastroparesis(Confir Active med) Gingivitis(Confirmed Active ) Left hip Active pain(Confirmed) S/P aortic valve Active repair(Confirmed) History of 08/19/99 Active Parkinson's disease(Confirmed) History of Active fall(Confirmed) Hyperlipidemia(Confi Active rmed) Hypothyroidism(Confi Active rmed) Urinary Active frequency(Confirmed) OA - Active Osteoarthritis(Confi rmed) Obesity(Confirmed) Active Obstructive sleep Active apnea(Confirmed) Poor Active dentition(Confirmed) Unsteady Active gait(Confirmed) Weight Active loss(Confirmed) Allergies, Adverse Reactions, Alerts Substance Reaction Severity Status sulfa drugs Active ciprofloxacin Active erythromycin1 Active cefuroxime Active penicillin2 Active trimethoprim Active Iodine MCFP Active 1rash all over body 2rash all [...] mind 4Admin Note: pt got it at [facility]=apr 2012 Procedures Procedure Date Related [...] Reg Smoking Cessation Counseling No2 entered on: 01/16/18 1up to the bathroom. 2pt quit 33 yrs ago Assessment and Plan No data available for this section
--- OUTSIDE RECORDS SUMMARY | 2018-08-13 18:29 | XMS REPORT | Summary of Care ---
Author Author [facility] Primary Care [facility] Organization [facility] Address Unknown Phone Unavailable Encounter TREVON Frias(FIN) [id number] Date(s): 10/29/17 - 10/29/17 [facility] [address] [place] [address], [address] [place], [place] [address]- [phone] Attending Physician: Miya Cast DO Referring Physician: [...] over body 2rash all over body Medications Levemir FlexPen 100 units/mL subcutaneous solution 20 unit, SUB-Q, Daily, X 90 day, # 1 box, 5 Refill(s), Pharmacy: [id number] Start Date: 11/20/17 Stop Date: 11/21/17 Status: Completed Results No data available for [...]
--- OUTSIDE RECORDS SUMMARY | 2018-08-13 18:29 | XMS REPORT | Summary of Care ---
Author Author [facility] Organization [facility] Address Unknown Phone Unavailable Encounter TREVON Frias(KIRSTIE) [id number] Date(s): 10/04/17 - 10/04/17 [facility] [address], [address] [place] [address]- [phone] Discharge Disposition: Home or Self Care Attending Physician: Miya Cast DO Referring Physician: Rowena Kay MD Vital Signs Most recent to 1 oldest [Reference Range]: Height 149.86 cm (10/04/17 2:26 PM) Temperature Oral 98.4 DegF [96.4-99.1 DegF] (10/04/17 2:26 PM) Blood Pressure 139/70 mmHg [90-140/60-90 mmHg] (10/04/17 2:26 PM) Respiratory Rate 14 BRMIN [14-20 BRMIN] (10/04/17 2:26 PM) Peripheral Pulse 70 bpm Rate [60-100 bpm] (10/04/17 2:26 PM) Weight 63.182 kg (10/04/17 2:26 PM) Body Mass Index 28.13 m2 (10/04/17 2:26 PM) Problem List Condition Effective Dates Status [...] over body 2rash all over body Medications atorvastatin 40 mg oral tablet 40 mg=1 tab, PO, Bedtime, # 90 tab, 1 Refill(s), Pharmacy: [facility] [id number] Start Date: 10/04/17 Stop Date: 04/02/18 Status: Ordered donepezil 10 mg oral tablet 10 mg=1 tab, PO, Bedtime, # 90 tab, 1 Refill(s), Pharmacy: [facility] [address] Start Date: 10/04/17 Stop Date: 04/02/18 Status: Ordered ferrous sulfate 325 mg oral enteric coated tablet 325 mg=1 tab, PO, Daily, # 90 tab, 1 Refill(s), Pharmacy: [facility] [address] Start Date: 10/04/17 Stop Date: 11/21/17 Status: Discontinued hydrOXYzine hydrochloride 25 mg oral tablet 25 mg=1 tab, PO, BID, PRN Anxiety, X 30 day, # 60 tab, 1 Refill(s), Pharmacy: [facility] Start Date: 10/04/17 Stop Date: 12/03/17 Status: Completed montelukast 10 mg oral tablet 10 mg=1 tab, PO, Daily, # 90 tab, 1 Refill(s), Pharmacy: [facility] [address] Start Date: 10/04/17 Stop Date: 04/02/18 Status: Ordered Results No data available for [...] mind 4Admin Note: [facility] [...]
--- OUTSIDE RECORDS SUMMARY | 2018-08-13 18:29 | XMS REPORT | Summary of Care ---
Author Author [facility] Primary Care [facility] Organization [facility] Address Unknown Phone Unavailable Encounter TREVON Frias(KIRSTIE) [id number] Date(s): 01/16/18 - 01/16/18 [facility] [address], [address] [place] [address]- [phone] Discharge Disposition: Home or Self Care Attending Physician: Miya Cast DO Vital Signs Most recent to 1 oldest [Reference Range]: Height 149.86 cm (01/16/18 11:24 AM) Temperature Oral 98.2 DegF [96.4-99.1 DegF] (01/16/18 11:24 AM) Blood Pressure 132/56 mmHg [90-140/60-90 mmHg] (01/16/18 11:24 AM) Respiratory Rate 14 BRMIN [14-20 BRMIN] (01/16/18 11:24 AM) Peripheral Pulse 77 bpm Rate [60-100 bpm] (01/16/18 11:24 AM) Weight 67.727 kg (01/16/18 11:24 AM) Body Mass Index 30.16 m2 (01/16/18 11:24 AM) Problem List Condition Effective Dates Status [...] cefuroxime Active penicillin2 Active trimethoprim Active Iodine INTERMEDIATE Active 1rash all over body 2rash all over body Medications chlorhexidine topical 0.12% liquid 0.018 gm=15 ml, S&SPIT, BID, # 480 ml, 0 Refill(s), Pharmacy: [id number] Start Date: 01/16/18 Status: Ordered Results No data available for [...]
--- OUTSIDE RECORDS SUMMARY | 2018-08-13 18:29 | XMS REPORT | Summary of Care ---
Author Author [facility] Primary Care [facility] Organization [facility] Address Unknown Phone Unavailable Encounter TREVON Frias(FIN) [id number] Date(s): 01/03/18 - 01/04/18 [facility] [address] [place] [address], [address] [place] [address]- [phone] Vital Signs No data available for this [...] cefuroxime Active penicillin2 Active trimethoprim Active Iodine CORRECTION Active 1rash all over body 2rash all [...] mind 4Admin Note: pt got it at [facility]=apr 2012 Procedures Procedure Date Related Diagnosis [...]
--- OUTSIDE RECORDS SUMMARY | 2018-08-13 18:29 | XMS REPORT | Summary of Care ---
Author Author [facility] Organization [facility] Address Unknown Phone Unavailable Encounter TREVON Frias(KIRSTIE) [id number] Date(s): 12/02/17 - 12/02/[address] [facility] [address], [address] [place] [address]- [phone] Discharge Disposition: Home or Self Care Attending Physician: Miya Cast DO Referring Physician: Rowena Kay MD Vital Signs Most recent to 1 oldest [Reference Range]: Height 149.86 cm (12/02/17 12:56 PM) Temperature Oral 98.1 DegF [96.4-99.1 DegF] (12/02/17 12:56 PM) Systolic Blood 119 mmHg Pressure [90-140 (12/02/17 12:56 PM) mmHg] Respiratory Rate 14 BRMIN [14-20 BRMIN] (12/02/17 12:56 PM) Peripheral Pulse 76 bpm Rate [60-100 bpm] (12/02/17 12:56 PM) Weight 65.909 kg (12/02/17 12:56 PM) Body Mass Index 29.35 m2 (12/02/17 12:56 PM) Problem List Condition Effective Dates Status [...] cefuroxime Active penicillin2 Active trimethoprim Active Iodine RETIREMENT Active 1rash all over body 2rash all over body Medications Basaglar KwikPen 100 units/mL subcutaneous solution 20 unit, SUB-Q, Bedtime, # 6 pen(s), 1 Refill(s), Pharmacy: [id number] Start Date: 12/02/17 Stop Date: 05/31/18 Status: Ordered Basaglar KwikPen 100 units/mL subcutaneous solution 20 unit, SUB-Q, Bedtime, X 90 day, # 6 pen(s), 1 Refill(s), Pharmacy: [id number] Start Date: 12/02/17 Stop Date: 12/02/17 Status: Completed Levemir FlexPen 100 units/mL subcutaneous solution 20 unit, SUB-Q, Bedtime, X 90 day, # 6 pen(s), 1 Refill(s), Pharmacy: [facility] Start Date: 12/02/17 Stop Date: 12/02/17 Status: Completed Levemir FlexPen 100 units/mL subcutaneous solution 20 unit, SUB-Q, Bedtime, # 6 pen(s), 1 Refill(s), Pharmacy: [facility] [address] Start Date: 12/02/17 Stop Date: 05/31/18 Status: Ordered levofloxacin 500 mg oral tablet 500 mg=1 tab, PO, Daily, X 7 day, # 7 tab, 0 Refill(s), Pharmacy: [facility] [address] Start Date: 12/02/17 Stop Date: 12/09/17 Status: Ordered tramadol 50 mg oral tablet 50 mg=1 tab, PO, BID, X 15 day, # 30 tab, 0 Refill(s) Start Date: 12/02/17 Stop Date: 12/17/17 Status: Ordered Results No data available for [...] mind 4Admin Note: pt got it at [facility]=apr 2012 Procedures Procedure Date Related Diagnosis Body [...]
--- OUTSIDE RECORDS SUMMARY | 2018-08-13 18:29 | XMS REPORT | Summary of Care ---
Author Author [facility] Organization [facility] Address Unknown Phone Unavailable Encounter TREVON Frias(KIRSTIE) [id number] Date(s): 01/28/18 - 01/28/18 [facility] [address], [address] [place] [address]- [phone] Discharge Disposition: Home or Self Care Attending Physician: Miya Cast DO Vital Signs Most recent to 1 oldest [Reference Range]: Height 149.86 cm (01/28/18 2:00 PM) Temperature Oral 98.2 DegF [96.4-99.1 DegF] (01/28/18 2:00 PM) Blood Pressure 110/71 mmHg [90-140/60-90 mmHg] (01/28/18 2:00 PM) Respiratory Rate 14 BRMIN [14-20 BRMIN] (01/28/18 2:00 PM) Peripheral Pulse 57 bpm Rate [60-100 bpm] *LOW* (01/28/18 2:00 PM) Weight 68.636 kg (01/28/18 2:00 PM) Body Mass Index 30.56 m2 (01/28/18 2:00 PM) Problem List Condition Effective Dates Status [...] cefuroxime Active penicillin2 Active trimethoprim Active Iodine CARE HOME Active 1rash all over body 2rash all over body Medications AMIODarone 400 mg oral tablet 400 mg=1 tab, PO, Bedtime, # 90 tab, 1 Refill(s), Pharmacy: [id number] 5 Start Date: 01/28/18 Stop Date: 07/27/18 Status: Ordered hydrochlorothiazide 12.5 mg oral tablet 12.5 mg=1 tab, PO, Daily, PRN swelling, # 90 tab, 1 Refill(s), Pharmacy: [facility] Start Date: 01/28/18 Stop Date: 07/27/18 Status: Ordered lisinopril 20 mg oral tablet 20 mg=1 tab, PO, Daily, # 90 tab, 1 Refill(s), Pharmacy: [facility] Start Date: 01/28/18 Stop Date: 07/27/18 Status: Ordered Voltaren Topical 1% topical gel 4 gm=1 appl, TOP, BID, PRN Apply to affected area, # 100 gm, 2 Refill(s) Start Date: 01/28/18 Status: Ordered Results No data available for [...] mind 4Admin Note: pt got it at [facility]=apr 2012 Procedures Procedure Date Related [...]
--- OUTSIDE RECORDS SUMMARY | 2018-08-13 18:29 | XMS REPORT | Summary of Care ---
Author Author [facility] Primary Care [facility] Organization [facility] Address Unknown Phone Unavailable Encounter TREVON Frias(KIRSTIE) [id number] Date(s): 10/25/17 - 10/26/17 [facility] Primary [facility] [address], [address] [place] [address] [phone] Vital Signs No data available for this [...] over body 2rash all over body Medications ranitidine 150 mg oral tablet See Instructions, TAKE 1 TABLET BY MOUTH TWICE DAILY, # 180 tab, 1 Refill(s), Ph armacy: [id number] Start Date: 10/25/17 Status: Ordered Results No data available for [...]
--- OUTSIDE RECORDS SUMMARY | 2018-08-13 18:29 | XMS REPORT | Summary of Care ---
Author Author [facility] Organization [facility] Address Unknown Phone Unavailable Encounter TREVON Frias(FIN) [id number] Date(s): 09/11/17 - 09/12/17 [facility] [address] [place] [address], [address] [place] [address]- [phone] Vital Signs No data available for this [...] cefuroxime Active penicillin2 Active trimethoprim Active Iodine CUSTODIAL Active 1rash all over body 2rash all [...] mind 4Admin Note: pt got it at [facility]=apr 2012 Procedures Procedure Date Related [...]
--- OUTSIDE RECORDS SUMMARY | 2018-08-13 18:30 | XMS REPORT | Summary of Care ---
Author Author [employer] Primary [facility] Organization [facility] Address Unknown Phone Unavailable Encounter TREVON Frias(KIRSTIE) [id number] Date(s): 02/18/18 - 02/18/18 [facility] [address], [address] [place] [address]- [phone] Discharge Disposition: Home or Self Care Attending Physician: Miya Cast DO Referring Physician: Rowena Kay MD Vital Signs Most recent to 1 oldest [Reference Range]: Height 149.86 cm (02/18/18 1:51 PM) Temperature Oral 98.1 DegF [96.4-99.1 DegF] (02/18/18 1:51 PM) Blood Pressure 137/70 mmHg [90-140/60-90 mmHg] (02/18/18 1:51 PM) Respiratory Rate 14 BRMIN [14-20 BRMIN] (02/18/18 1:51 PM) Peripheral Pulse 57 bpm Rate [60-100 bpm] *LOW* (02/18/18 1:51 PM) Weight 70.455 kg (02/18/18 1:51 PM) Body Mass Index 31.37 m2 (02/18/18 1:51 PM) Problem List Condition Effective Dates Status [...] disease(Confirmed) Pedal Active edema(Confirmed) Gastroparesis(Confir Active med) Hip pain(Confirmed) Active S/P aortic valve Active repair(Confirmed) History of 08/19/99 Active Parkinson's disease(Confirmed) Hyperlipidemia(Confi Active rmed) Hypothyroidism(Confi Active rmed) Urinary Active frequency(Confirmed) OA - Active Osteoarthritis(Confi rmed) Obesity(Confirmed) Active Obstructive sleep Active apnea(Confirmed) Leg pain(Confirmed) Active Physical Active deconditioning(Confi rmed) Recurrent Active falls(Confirmed) Sciatica(Confirmed) Active Shoulder Active pain(Confirmed) Unsteady Active gait(Confirmed) Allergies, Adverse Reactions, Alerts Substance Reaction Severity Status sulfa drugs Active ciprofloxacin Active erythromycin1 Active cefuroxime Active penicillin2 Active trimethoprim Active Iodine HALFWAY Active 1rash all over body 2rash all over body Medications tizanidine 2 mg oral tablet 2 mg=1 tab, PO, Bedtime, PRN for muscle spasm, # 30 tab, 1 Refill(s), Pharmacy: [facility] [id number] Start Date: 02/18/18 Status: Ordered Results No data available for [...] 4Admin Note: pt got it at [facility]=apr 2012 Procedures Procedure Date Related [...] Reg Smoking Cessation Counseling No2 entered on: 02/18/18 1up to the bathroom. 2pt quit 33 yrs ago Assessment and Plan No data available for this section
--- OUTSIDE RECORDS SUMMARY | 2018-08-13 18:30 | XMS REPORT ---
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 Allergies, Adverse Reactions, Alerts This patient has no known allergies or adverse reactions. Medications This patient has no known medications.
--- OUTSIDE RECORDS SUMMARY | 2018-08-13 18:30 | XMS REPORT | Summary of Care ---
Author Author [facility] Primary Care [facility] Organization [facility] Address Unknown Phone Unavailable Encounter TREVON Frias(FIN) [id number] Date(s): 02/06/18 - 02/07/18 [facility] [address], [address] [place], [place] [address]- [phone] Vital Signs No data available for this [...] edema(Confirmed) Gastroparesis(Confir Active med) Gingivitis(Confirmed Active ) Hip pain(Confirmed) Active S/P aortic valve Active repair(Confirmed) History of 08/19/99 Active Parkinson's disease(Confirmed) Hyperlipidemia(Confi Active rmed) Hypothyroidism(Confi Active rmed) Urinary Active frequency(Confirmed) OA - Active Osteoarthritis(Confi rmed) Obesity(Confirmed) Active Obstructive sleep Active apnea(Confirmed) Leg pain(Confirmed) Active Physical Active deconditioning(Confi rmed) Recurrent Active falls(Confirmed) Shoulder Active pain(Confirmed) Poor Active dentition(Confirmed) Unsteady Active gait(Confirmed) Weight Active loss(Confirmed) Allergies, Adverse Reactions, Alerts Substance Reaction Severity Status sulfa drugs Active ciprofloxacin Active erythromycin1 Active cefuroxime Active penicillin2 Active trimethoprim Active Iodine DETENTION Active 1rash all over body 2rash all [...] mind 4Admin Note: pt got it at [facility]=apr 2012 Procedures Procedure Date Related Diagnosis Body [...]
--- OUTSIDE RECORDS SUMMARY | 2018-08-13 18:30 | XMS REPORT | Summary of Care ---
Author Author [facility] Primary Care [facility] Organization [facility] Address Unknown Phone Unavailable Encounter TREVON Frias(KIRSTIE) [id number] Date(s): 11/21/17 - 11/21/17 [facility] [address], [address] [place] [address]- [phone] Discharge Disposition: Home or Self Care Attending Physician: Miya Cast DO Referring Physician: Rowena Kay MD Vital Signs Most recent to 1 oldest [Reference Range]: Height 149.86 cm (11/21/17 1:05 PM) Temperature Oral 98.2 DegF [96.4-99.1 DegF] (11/21/17 1:05 PM) Blood Pressure 118/49 mmHg [90-140/60-90 mmHg] (11/21/17 1:05 PM) Respiratory Rate 14 BRMIN [14-20 BRMIN] (11/21/17 1:05 PM) Peripheral Pulse 74 bpm Rate [60-100 bpm] (11/21/17 1:05 PM) Weight 62.273 kg (11/21/17 1:05 PM) Body Mass Index 27.73 m2 (11/21/17 1:05 PM) Problem List Condition Effective Dates Status [...] Bedtime, # 6 pen(s), 1 Refill(s), Pharmacy: [facility] [id number] Start Date: 11/22/17 Stop Date: 12/02/17 Status: Discontinued benzonatate 100 mg oral capsule 100 mg=1 cap, PO, TID, do not crush or chew, X 10 day, # 30 cap, 1 Refill(s), armacy: [facility] [id number] Start Date: 11/21/17 Stop Date: 12/11/17 Status: Completed Effexor XR 150 mg oral capsule, extended release 150 mg=1 cap, PO, Bedtime, # 90 cap, 1 Refill(s), Pharmacy: [facility] [id number] Start Date: 11/21/17 Status: Ordered ferrous sulfate 325 mg oral enteric coated tablet 325 mg=1 tab, PO, Daily, # 90 tab, 1 Refill(s), Pharmacy: [facility] [id number] Start Date: 11/21/17 Stop Date: 05/20/18 Status: Ordered Levemir FlexPen 100 units/mL subcutaneous solution 20 unit, SUB-Q, Daily, # 1 box, 5 Refill(s), Pharmacy: [facility] [id number] Start Date: 11/21/17 Stop Date: 11/22/17 Status: Deleted lisinopril 20 mg oral tablet 20 mg=1 tab, PO, Daily, # 90 tab, 1 Refill(s), Pharmacy: [facility] [id number] Start Date: 11/21/17 Stop Date: 01/28/18 Status: Discontinued loratadine 10 mg oral tablet 10 mg=1 tab, PO, Daily, # 90 tab, 1 Refill(s), Pharmacy: [id number] Start Date: 11/21/17 Stop Date: 05/20/18 Status: Ordered Results No data available for [...]
[2018-08-13 19:08] LABS: CLARITY,URINE HAZY (CLEAR); COLOR,URINE YELLOW (YELLOW); KETONES,URINE 1+ (NEGATIVE); LEUKOCYTE ESTERASE ,URINE 1+ (NEGATIVE); NITRITE,URINE POSITIVE (NEGATIVE); PROTEIN,URINE DIPSTICK TRACE (NEGATIVE); URINE UROBILINOGEN 0.2 mg/dL (0.2 - 1)
[2018-08-13 19:09] LABS: BILIRUBIN,URINE NEGATIVE (NEGATIVE)
[2018-08-13 19:24] LABS: BASOPHILS % 0.4 % (0.0-1.0); EOSINOPHILS % 0.4 % (0.0-6.0); HEMATOCRIT 39.5 % (34.2-44.1); HEMOGLOBIN 12.8 g/dL (12.0-16.0); LYMPHOCYTES # (AUTO) 1.9 (1.0-3.2); LYMPHOCYTES % 35.1 % (18.0-39.1); MEAN CORPUSCULAR HEMOGLOBIN 30.8 pg (28-32); MEAN CORPUSCULAR HGB CONC 32.4 g/dL (31-35); MONOCYTES # (AUTO) 0.3 (0.2-0.8); MONOCYTES % 4.6 % (4.4-11.3); NEUTROPHILS # (AUTO) 3.2 (2.1-6.9); NEUTROPHILS % 59.3 % (38.7-80.0); PLATELET COUNT 208 x10e3/uL (140-360); RED BLOOD COUNT 4.16 x10e6/uL (3.6-5.1); RED CELL DISTRIBUTION WIDTH 14.1 % (11.7-14.4)
[2018-08-13 19:28] LABS: BACTERIA,URINE MANY /HPF; EPITHELIAL CELLS,URINE FEW /LPF; RBC,URINE 0-5 /HPF (0-5); WBC,URINE (MAN) 21-50 /HPF (0-5)
[2018-08-13 19:47] LABS: ALBUMIN 4.5 g/dL (3.5-5.0); ALBUMIN/GLOBULIN RATIO 1.5 (0.8-2.0); ANION GAP 17.7 mmol/L (8-16); CALCIUM 9.9 mg/dL (8.4-10.2); CREATININE, SERUM 1.22 mg/dL (0.57-1.11); POTASSIUM 3.7 mmol/L (3.5-5.1)
[2018-08-13 20:09] LABS: AMYLASE 73 U/L (25-125); LIPASE 33 U/L (8-78)
[2018-08-13 21:38] LABS: CREATINE KINASE MB 0.8 ng/mL (0-5.0)
--- NOTE | 2018-08-13 21:55 | Diagnostic Imaging Report ---
EXAM: CT ABDOMEN AND PELVIS without IV CONTRAST INDICATION: Abdominal pain, nausea and vomiting, left upper quadrant pain, history of pancreatitis COMPARISON: None TECHNIQUE: The abdomen and pelvis were scanned using a multidetector helical scanner. Coronal and sagittal reformations were obtained. Dose modulation, iterative reconstruction, and/or weight based adjustment of the mA/kV was utilized to reduce the radiation dose to as low as reasonably achievable. Routine protocol performed. IV Contrast: None Oral Contrast: Redicat seen in the small bowel. CTDIvol has been reviewed. It is below the limits set by the Radiation Protocol Committee (RPC). FINDINGS: LOWER THORAX: No consolidations LIVER: No masses BILIARY: The gallbladder has been removed. No ductal dilation. SPLEEN: No masses PANCREAS: No masses or peripancreatic inflammation. ADRENALS: No nodules RIGHT KIDNEY: No nephroureterolithiasis or hydronephrosis. LEFT KIDNEY: No nephroureterolithiasis or hydronephrosis. GI TRACT: No wall thickening or obstruction. VESSELS: Moderate atherosclerotic changes of the abdominal aorta without aneurysm. PERITONEUM/RETROPERITONEUM: No free air or fluid LYMPH NODES: No lymphadenopathy REPRODUCTIVE ORGANS: The uterus and ovaries are not visualized. BLADDER: Normal SOFT TISSUES: Generator for sacral stimulator in the right buttocks. BONES: No suspicious bone lesions. IMPRESSION: No acute findings in the CT of the abdomen or pelvis. No evidence of pancreatitis. Signed by: Dr. Neeru Nguyen M.D. on 08/13/2018 9:52 PM
[2018-08-13 22:33] VITALS: BP 166/44
== END 2018-08-13 22:42 | disposition home or self-care (01) ==
LOC: ER 18:09
DX: N30.00 Acute cystitis without hematuria (principal); R10.12 Left upper quadrant pain; G89.29 Other chronic pain; E11.9 Type 2 diabetes mellitus without complications; F41.8 Other specified anxiety disorders; M79.7 Fibromyalgia; M81.0 Age-related osteoporosis without current pathological fracture; Z87.891 Personal history of nicotine dependence; Z88.0 Allergy status to penicillin; Z88.2 Allergy status to sulfonamides; Z88.6 Allergy status to analgesic agent; Z88.1 Allergy status to other antibiotic agents; Z91.041 Radiographic dye allergy status; Z88.8 Allergy status to other drugs, medicaments and biological substances
CPT/HCPCS: 36415; 74176; 80053; 81001; 82150; 82550; 82553; 83690; 84484; 85025; 87086; 87186; 93005; 99284